=== PATIENT | male | born 1930 | race Hispanic/Latino ===

== ENCOUNTER 2016-08-26 14:02 | Inpatient (IN) | payer MEDICARE, BC ==
[2016-08-26 14:06] VITALS: BMI 26.6
--- NOTE | 2016-08-26 14:34 | ED PDOC ---
Arrival/HPI - General Chief Complaint: Shortness Of Breath Time Seen by Provider: 08/26/16 14:15 Historian: Patient, Family - History of Present Illness Narrative History of Present Illness (Text): 08/26/16 14:33 85 year old female with a past medical history that includes COPD, CAD s/p CABG , stents, hemolytic anemia presents to the emergency department with worsening shortness of breath and dyspnea on exertion for the past week. Family reports patient has baseline dementia and is unable to provide further history. Family reports the patient was seen by his PMD who referred him to the emergency department for further evaluation. PMD: Dr. Pavon Time/Duration: < week Symptom Onset: Gradual Symptom Course: Worsening Modifying Factors (Text): None Associated Symptoms (Text): None Past Medical History - Provider Review Nursing Documentation Reviewed: Yes - Infectious Disease Hx of Infectious Diseases: None - Tetanus Immunization Tetanus Immunization: Unknown - Cardiac Hx Hypertension: Yes - Pulmonary Hx Respiratory Disorders: Yes Hx Chronic Obstructive Pulmonary Disease (COPD): Yes - Neurological Hx Neurological Disorder: No - HEENT Hx HEENT Disorder: (WEARS RX GLASSES) Hx Deafness: Yes - Renal Hx Renal Disorder: No - Endocrine/Metabolic Hx Endocrine Disorders: No - Hematological/Oncological Hx Blood Transfusions: No Hx Blood Transfusion Reaction: No - Integumentary Hx Dermatological Disorder: Yes (GENERALIZED ROUND AGUSTIN COLORED LESIONS) Other/Comment: cells removed on body as per patient and - Musculoskeletal/Rheumatological Hx Musculoskeletal Disorders: Yes Hx Falls: Yes - Gastrointestinal Hx Gastrointestinal Disorders: Yes (GASTRITIS) Hx Diverticulitis: Yes Hx Gall Bladder Disease: Yes (CHOLECYSTECTOMY) Hx Gastroesophageal Reflux: Yes - Genitourinary/Gynecological Hx Genitourinary Disorders: Yes (URINARY FREQUENCY) Hx Prostate Problems: Yes (BPH) Hx Urinary Tract Infection: Yes - Psychiatric Hx Anxiety: (SMOKED CIGARETTES QUIT 10 YRS AGO PPD) Hx Depression: No Hx Emotional Abuse: No Hx Physical Abuse: No Hx Substance Use: No Other/Comment: DRINKS BEER REULARLY H/O - Surgical History Hx Cardiac Catheterization: Yes Hx Coronary Stent: Yes (X8) - Anesthesia Hx Anesthesia Reactions: No Hx Malignant Hyperthermia: No - Suicidal Assessment Feels Threatened In Home Enviroment: No Family/Social History - Physician Review Nursing Documentation Reviewed: Yes Family/Social History: Unknown Family HX Smoking Status: Former Smoker Hx Alcohol Use: Yes (BEER DAILY H/O) Hx Substance Use: No Hx Substance Use Treatment: No Allergies/Home Meds Allergies/Adverse Reactions: Allergies No Known Allergies Allergy (Verified 08/09/15 15:01) Home Medications: Home Meds Medication Instructions Recorded Confirmed Tamsulosin [Flomax] 0.4 mg PO DAILY 03/08/13 08/26/16 Clopidogrel [Plavix] 75 mg PO DAILY 05/02/14 08/26/16 Famotidine [Pepcid] 20 mg PO BID 02/22/15 08/26/16 Isosorbide Mononitrate [Imdur] 60 mg PO DAILY 07/12/15 08/26/16 Aspirin [Aspirin Chewable] 81 mg PO DAILY 08/07/15 08/26/16 Metoprolol Tartrate [Lopressor] 100 mg PO BID 08/07/15 08/26/16 Prednisone [Deltasone] 5 mg PO DAILY 08/07/15 08/26/16 ALPRAZolam [Xanax] 0.25 mg PO Q8H PRN 06/10/16 08/26/16 Clarithromycin [Biaxin Filmtab] 500 mg PO BID 08/26/16 08/26/16 Review of Systems - Review of Systems Systems not reviewed;Unavailable: Dementia Physical Exam - Physical Exam Narrative Physical Exam (Text): - Physical exam Patient appears age appropriate, speaking full sentences without difficulty - Systems Exam Head: Present: Atraumatic, Normocephalic Pupils: Present: PERRL Extraocular Muscles: Present: EOMI Conjunctiva: Present: Normal Mouth: Present: Moist Mucous Membranes Neck: Present: Normal Range of Motion. No: MIDLINE TENDERNESS, Paraspinal Tenderness Respiratory/Chest: Present: Clear to Auscultation, Good Air Exchange. No: Respiratory Distress, Accessory Muscle Use, Tachypneic Cardiovascular: Present: Regular Rate and Rhythm, Normal S1, S2, Peripheral Pulses Present. No: Murmurs Abdomen: Present: Normal Bowel Sounds, No: Tenderness, Peritoneal Signs, Rebound, Guarding, Distention Back: Present: Normal Inspection. No: Midline Tenderness, Paraspinal Tenderness Upper Extremity: Present: Normal Inspection. No: Cyanosis, Edema Lower Extremity: Present: Normal Inspection. No: Edema Neurological: Present: GCS=15, No new focal neurological deficits. Skin: Present: Warm, Dry, Normal Color. No: Rashes Lymphatic: Present: OX3, NI, NC Psychiatric: Present: Alert, Normal Concentration. Vital Signs Reviewed: Yes Vital Signs Temp Pulse Resp BP Pulse Ox 08/26/16 15:37 22 98 08/26/16 14:11 97.9 F 91 H 18 135/65 97 Temperature: Afebrile Blood Pressure: Normal Pulse: Regular Respiratory Rate: Normal Appearance: Positive for: Well-Appearing, Non-Toxic, Comfortable Pain Distress: None Mental Status: Positive for: other (Baseline as per family) Medical Decision Making ED Course and Treatment: Impression: 85 year old female with a past medical history that includes COPD, CAD s/p CABG, stents, hemolytic anemia presents to the emergency department with worsening shortness of breath and dyspnea on exertion for the past week. On physical exam, patient has no acute findings. Differential Diagnosis include but are not limited to: Pneumonia vs COPD exacerbation Plan: -- Chest X-ray, EKG -- Labs -- Reassess and disposition Prior Visits: Notes and results from previous visits were reviewed. Patient last seen in the ED on 08/10/15 with altered mental status and admitted for observation. Progress Notes: EKG shows NSR at 90 BPM with t-wave inversions in precordial leads, no ST segment elevations, interpreted by me. Chest X-ray Inspector Air Carrier: Dr. Richter Impression: Bilateral calcified pleural plaque. No definite infiltrate. Chest CT Inspector Air Carrier: Dr. Malik Miner IMPRESSION: Extensive pleural plaques. No acute findings. No evidence of pneumonia 08/26/16 16:[address] Brooks, accepted admission to his service. Asked for steroids and consult with Dr. Jaime. pt has leukocytosis with no source. ct abd/pelvis and ua ordered - Lab Interpretations Lab Results: 08/26/16 14:30 08/26/16 14:30 Lab Results 08/26/16 14:45: PT 12.7 H, INR 1.18 H, APTT 31.6 H, Blood Type O POSITIVE, Antibody Screen Positive, Antibody Identification Pending, BBK History Checked Patient has bt 08/26/16 14:30: WBC 16.2 H D, RBC 4.09, Hgb 13.5 L, Hct 38.9 L, MCV 95.1, MCH 33.0, MCHC 34.7, RDW 16.6 H, Plt Count 419, MPV 10.4, Gran % 75.4 H, Lymph % ( Auto) 11.3 L, Fountain % (Auto) 12.7 H, Eos % (Auto) 0.1 L, Baso % (Auto) 0.5, Gran # 12.24 H, Lymph # 1.8, Fountain # 2.1 H, Eos # 0.0, Baso # 0.08, Sodium 138, Potassium 4.5, Chloride 105, Carbon Dioxide 22, Anion Gap 16, BUN 20, Creatinine 1.1, Est GFR ( Amer) > 60, Est GFR (Non-Af Amer) > 60, Random Glucose 132 H, Calcium 8.8, Total Bilirubin 1.2, AST 40, ALT 29, Alkaline Phosphatase 178 H, Lactate Dehydrogenase 420, Total Creatine Kinase 24 L, Troponin I 0.02 D, NT-Pro-B Natriuret Pep 1760 H, Total Protein 7.7, Albumin 3.4, Globulin 4.3, Albumin/Globulin Ratio 0.8 L - RAD Interpretation Radiology Orders: 08/26/16 14:19 CHEST PORTABLE [RAD] Stat 08/26/16 15:22 CHEST W/O CONTRAST [CT] Stat 08/26/16 16:31 ABD & PELVIS IV CONTRAST ONLY [CT] Stat Trial Paralegal: Radiologist - EKG Interpretation Interpreted by ED Physician: Yes Type: 12 lead EKG - Medication Orders Current Medication Orders: Azithromycin (Zithromax 500mg In Ns) 250 mls @ 167 mls/hr IVPB STAT STA PRN Reason: Protocol Stop: 08/26/16 16:47 Discontinued Medications Ceftriaxone Sodium (Rocephin 1 Gram Ivpb) 100 mls @ 200 mls/hr IV STAT STA PRN Reason: Protocol Stop: 08/26/16 15:47 Last Admin: 08/26/16 16:02 Dose: 200 MLS/HR eMAR Start Stop Document 08/26/16 16:02 JOL (Rec: 08/26/16 16:04 JOL [id number]) Intravenous Solution Start Date 08/26/16 Start Time 16:04 End Date 08/26/16 End time 16:34 Total Infusion Time 30 Methylprednisolone (Solu-Medrol) 125 mg IVP STAT STA Stop: 08/26/16 16:37 - Scribe Statement The provider has reviewed the documentation as recorded by the Stephenie Lopez Provider Scribe Attestation: All medical record entries made by the Stephenie were at my direction and personally dictated by me. I have reviewed the chart and agree that the record accurately reflects my personal performance of the history, physical exam, medical decision making, and the department course for this patient. I have also personally directed, reviewed, and agree with the discharge instructions and disposition. Disposition/Present on Arrival - Present on Arrival Any Indicators Present on Arrival: No History of DVT/PE: No History of Uncontrolled Diabetes: No Urinary Catheter: No History of Decub. Ulcer: No History Surgical Site Infection Following: None - Disposition Have Diagnosis and Disposition been Completed?: Yes Diagnosis: Leukocytosis Disposition: HOSPITALIZED Disposition Time: 16:47 Patient Plan: Admission Patient Problems: Current Active Problems Problem Status Diagnosed Abdominal pain Acute Altered mental status Acute Chest pain, cardiac Acute Condition: FAIR
[2016-08-26 14:59] LABS: BASO # 0.08 K/mm3 (0.0-2.0); BASO % 0.5 % (0.0-3.0); EOS % 0.1 % (1.5-5.0); GRAN # 12.24 (1.4-6.5); GRAN % 75.4 % (50.0-68.0); HEMATOCRIT 38.9 % (42.0-52.0); LYMPH # 1.8 (1.2-3.4); LYMPH % 11.3 % (22.0-35.0); MEAN CELL VOLUME 95.1 fL (80.0-105.0); MEAN CORPUSCULAR HGB CONC 34.7 g/dl (31.0-37.0); MEAN PLATELET VOLUME 10.4 fl (7.0-11.0); MONO # 2.1 (0.1-0.6); MONO % 12.7 % (1.0-6.0); PLATELET COUNT 419 10^3/uL (120.0-450.0); RED CELL DISTRIBUTION WIDTH 16.6 % (11.5-14.5); WHITE BLOOD COUNT 16.2 10^3/ul (4.5-11.0)
[2016-08-26 15:02] LABS: ALB/GLOB RATIO 0.8 (1.1-1.8); ALKALINE PHOSPHATASE 178 U/L (38-133); ALT/SGPT 29 U/L (7-56); AST/SGOT 40 U/L (15-59); BILIRUBIN,TOTAL 1.2 mg/dL (0.2-1.3); BLOOD UREA NITROGEN 20 mg/dL (7-21); CALCIUM 8.8 mg/dL (8.4-10.5); CARBON DIOXIDE 22 mmol/L (21-33); CHLORIDE 105 mmol/L (98-107); GFR AFRICAN-AMERICAN > 60; GLUCOSE,RANDOM 132 mg/dL (70-110); POTASSIUM 4.5 mmol/L (3.6-5.0); SODIUM 138 mmol/L (132-148); TOTAL PROTEIN 7.7 g/dL (5.8-8.3)
--- NOTE | 2016-08-26 15:05 | RAD ---
HISTORY: cough COMPARISON: 08/09/2015 FINDINGS: LUNGS: No definite infiltrate. Bilateral opacities due to calcified pleural plaque unchanged over multiple prior examinations and demonstrated on recent chest CT examination. PLEURA: No pleural effusion. Bilateral pleural plaque with calcification, grossly unchanged. CARDIOVASCULAR: Sternotomy wires. Status post CABG. OSSEOUS STRUCTURES: No significant abnormalities. VISUALIZED UPPER ABDOMEN: Normal. OTHER FINDINGS: None. IMPRESSION: Bilateral calcified pleural plaque. No definite infiltrate.
[2016-08-26 15:13] LABS: INR 1.18 (0.93-1.08); PARTIAL THROMBOPLASTIN TIME 31.6 Seconds (23.7-30.8)
[2016-08-26 15:14] LABS: ADD MANUAL DIFF? NO; TROPONIN I 0.02 ng/mL
[2016-08-26] MEDS ORDERED: cefTRIAXone 1 gm 100 ML IV STA (15:18)
[2016-08-26] MEDS ORDERED: Azithromycin 500MG/NS 250ml 250 ML IVPB STA (15:18)
--- NOTE | 2016-08-26 16:11 | CT ---
PROCEDURE: CT Chest without contrast HISTORY: PNA COMPARISON: 08/11/2015 TECHNIQUE: Contiguous axial images were obtained through the chest without intravenous contrast enhancement. Sagittal and coronal reconstructions were performed. Radiation dose (DLP): 675 mGy-cm. FINDINGS: LUNGS: Clear lungs. Visualized airway clear. MEDIASTINUM: Unremarkable thoracic aorta. No aneurysm. Mild cardiomegaly. Previous cardiac surgery Main pulmonary artery unremarkable. No vascular congestion. No lymphadenopathy. PLEURA: Extensive bilateral pleural plaques are seen. BONES: No fracture. No destructive lesion. UPPER ABDOMEN: Grossly unremarkable. OTHER FINDINGS: None. IMPRESSION: Extensive pleural plaques. No acute findings. No evidence of pneumonia
[2016-08-26] MEDS ORDERED: Iohexol 350 MG/100 ML VIAL ONE (17:54)
[2016-08-26] MEDS ORDERED: MethylPREDNISolone 40 mg Vial IVP SCH (19:15)
--- NOTE | 2016-08-26 21:21 | CT ---
EXAM: CT Abdomen and Pelvis With Intravenous Contrast. CLINICAL HISTORY: 85 years old, male; Pain; Abdominal pain; Generalized; Prior surgery; Surgery date: 6+ months; Surgery type: Cholecystectomy; Additional info: Abd pain TECHNIQUE: Axial computed tomography images of the abdomen and pelvis with intravenous contrast. This CT exam was performed using one or more of the following dose reduction techniques: automated exposure control, adjustment of the mA and/or kV according to patient size, and/or use of iterative reconstruction technique. Coronal and sagittal reformatted images were created and reviewed. CONTRAST: 100 mL of OMNIPAQUE 350 administered intravenously. COMPARISON: CT - ABD PELVIS PO CONTRAST ONLY 11/10/2011 7:11:28 PM FINDINGS: Limitations: Motion artifact - mild. Lower thorax: Multiple calcified pleural plaques. Mild atelectasis/scarring. Small hiatal hernia. ABDOMEN: Liver: Unremarkable. No mass. Gallbladder and bile ducts: Cholecystectomy. No ductal dilation. Pancreas: No ductal dilation. No mass. Spleen: No splenomegaly. Adrenals: No mass. Kidneys and ureters: [id number] stranding about kidneys, nonspecific. RIGHT renal cyst. Few too small to characterize lesions within kidneys. No hydronephrosis. Stomach and bowel: Few scattered diverticula within colon. No associated inflammatory stranding. Appendix: Normal caliber. No definite inflammation. PELVIS: Bladder: Unremarkable. Reproductive: Unremarkable as visualized. ABDOMEN and PELVIS: Intraperitoneal space: No significant fluid collection. No free air. Bones/joints: Median sternotomy. Degenerative changes of spine. No acute fracture. Soft tissues: Unremarkable. Vasculature: Moderate atherosclerotic disease of visualized arteries. Accessory retroaortic LEFT renal vein. No aortic aneurysm. Lymph nodes: No pathologically enlarged lymph nodes. IMPRESSION: 1. Diverticulosis without CT evidence of diverticulitis. 2. Incidental/non-acute findings are described above.
[2016-08-26 21:31] LABS: URINE BILIRUBIN NEGATIVE (NEGATIVE); URINE BLOOD TRACE-INTACT (NEGATIVE); URINE GLUCOSE (UA) NEGATIVE (NEGATIVE); URINE KETONE NEGATIVE (NEGATIVE); URINE LEUKOCYTE ESTERASE NEGATIVE Leu/uL (NEGATIVE); URINE PROTEIN TRACE mg/dL (<30 mg/dL)
[2016-08-26 21:36] LABS: URINE APPEARANCE CLEAR (CLEAR); URINE COLOR YELLOW (YELLOW)
[2016-08-26 22:01] LABS: URINE BACTERIA FEW (NEG); URINE EPITHELIAL CELLS 0 - 2 /hpf (0-5); URINE WBC 0 - 2 /hpf (0-6)
--- NOTE | 2016-08-27 06:35 | HP ---
HISTORY OF PRESENT ILLNESS: The patient is an 85-year-old white male. The patient presents in the Emergency Room, brought in by his 2 daughters. He has altered mental state, is confused, he has been out in the cold, but he also has history of cough, shortness of breath. The patient complains of abd ominal pain, pain in his lower abdomen and lower back. The patient denies any fever. The patient de nies any chills. PAST MEDICAL HISTORY: Significant. He has history of exposure to asbestos. He does have evidence o f that in his lungs. The patient also has chronic lung disease. Past history of pneumonia. The victorina wilson has a past medical history of bronchitis, chronic obstructive lung disease. The patient has po sitive coronary artery disease and had multiple angioplasties. The patient has history of congestive heart failure, history of constipation, diverticulitis. ALLERGIES: The patient is not allergic to any medication. He is a full code. PHYSICAL EXAMINATION: GENERAL: He is lying in bed, comfortable. He is on oxygen 2 liters. VITAL SIGNS: His pulse is 89, blood pressure 146/80. His O2 sat is 95% on 2 liters of oxygen nasal cannula. The patient's temperature is 97.9. HEAD: Normocephalic. He does have some scars from previous surgery for skin cancer. The patient al so has multiple keratotic patches on his face and his arms. NECK: The thyroid is clinically not enlarged. No lymphadenopathy. JVP is flat, carotid pulses are present. HEART: Normal sinus rhythm. S1, S2 present. No murmurs, clinically no rubs. LUNGS: Trachea central. Breath sounds vesicular. The patient has occasional rhonchi and crepitatio ns bilaterally. The patient has no localizing signs. ABDOMEN: Soft. Liver, spleen not palpable and no localizing signs, no clear tenderness. CENTRAL NERVOUS SYSTEM: The patient is conscious, confused and also has difficulty in hearing. Cran ial nerves: Naturally, his 8th nerve is impaired and all the other cranial nerves are clinically okay . LABORATORY DATA: The white count is 16,200. His hemoglobin 13.5. His platelet count is 419,000. T he patient has had history of thrombocytopenia, idiopathic, and has been on steroids to control that. The chemistry shows glucose of 132. The patient's alkaline phosphatase is 178 and his BNP is 1760. This is chronic. The patient has past history of congestive heart failure. The patient's chest x-ra y shows a ground glass appearance. The patient's EKG shows normal sinus rhythm and ST-T wave changes consistent with coronary artery disease. MEDICATIONS: The patient's medication list consists of Plavix. The patient is on metoprolol 100 mg b.i.d., Flomax 0.4 mg daily, Imdur 60 mg daily, aspirin 81 mg daily. The patient is given Plavix 75 m g daily. He is on Zithromax IV. The patient is on Solu-Medrol IV. He will be on respiratory treatm ent with Caroline and will have cardiac consultation with Dr. Almazan and pulmonary consultation with Dr. Leyva and Dr. Shah. PLAN: The patient's clinical condition is acute. We will continue with the current management as pr escribed. We will follow up. DIAGNOSIS: Acute exacerbation of chronic obstructive lung disease with respiratory infection, leukoc ytosis associated with systemic inflammatory response syndrome. The patient has coronary artery dise ase, chronic obstructive lung disease with asbestosis, abdominal pain, cause unknown. The patient is pending CAT scan. He is in the Emergency Room. We will follow up on that. CONDITION: Clinically unstable but he is not in any critical danger at this time. David Pavon MD cc: [phone] TT: 08/27/2016 06:34:23 al
[2016-08-27] MEDS ORDERED: Albuterol-Ipratrop 3 mg / 0.5 (3 ml) UD IH PRN (06:53)
[2016-08-27] MEDS: Albuterol-Ipratrop 3 mg / 0.5 (3 ml) UD IH SCH ×3 (07:10→19:55)
[2016-08-27 07:25] LABS: HEMATOCRIT 38.7 % (42.0-52.0); MEAN CELL VOLUME 94.4 fL (80.0-105.0); MEAN CORPUSCULAR HEMOGLOBIN 32.4 pg (25.0-35.0); MEAN CORPUSCULAR HGB CONC 34.4 g/dl (31.0-37.0); MEAN PLATELET VOLUME 10.1 fl (7.0-11.0); PLATELET COUNT 448 10^3/uL (120.0-450.0); RED CELL DISTRIBUTION WIDTH 16.6 % (11.5-14.5); WHITE BLOOD COUNT 16.2 10^3/ul (4.5-11.0)
[2016-08-27 07:29] LABS: ADD MANUAL DIFF? YES
[2016-08-27 07:33] LABS: ALB/GLOB RATIO 0.8 (1.1-1.8); ALKALINE PHOSPHATASE 167 U/L (38-133); ALT/SGPT 26 U/L (7-56); AST/SGOT 39 U/L (15-59); BILIRUBIN,TOTAL 0.7 mg/dL (0.2-1.3); BLOOD UREA NITROGEN 22 mg/dL (7-21); CALCIUM 9.1 mg/dL (8.4-10.5); CARBON DIOXIDE 23 mmol/L (21-33); CHLORIDE 105 mmol/L (95-110); GFR AFRICAN-AMERICAN > 60; GLUCOSE,RANDOM 169 mg/dL (70-110); POTASSIUM 4.1 mmol/L (3.6-5.0); SODIUM 140 mmol/L (132-148); TOTAL PROTEIN 7.7 g/dL (5.8-8.3)
[2016-08-27 09:38] LABS: BAND 3 % (0-2); NEUTROPHIL 85 % (50.0-70.0)
[2016-08-27 09:39] LABS: ANISOCYTOSIS SLIGHT; LARGE PLATELETS PRESENT; PLATELET ESTIMATE HIGH (NORMAL)
[2016-08-27 09:40] LABS: OVALOCYTES SLIGHT
[2016-08-27] MEDS: Azithromycin 500MG/NS 250ml 250 ML IVPB SCH (10:16)
--- NOTE | 2016-08-27 10:20 | PN ---
DATE: 08/27/2016 The patient is in room 276, bed 2. The patient was admitted yesterday with multiple complaints. The family, the 2 daughters, brought the patient to the Emergency Room because he was complaining of wea kness, shortness of breath, cough. The patient had abdominal pain and altered mental state. PHYSICAL EXAMINATION: GENERAL: Seen this morning. He is lying down, comfortable. 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 Luke. VITAL SIGNS: This morning, his pulse is 64, blood pressure 135/60, patient's respiration is 20, O2 s at is 97% on room air. HEAD: Normocephalic. NECK: The thyroid is not enlarged. JVP is flat. No lymphadenopathy. LUNGS: Trachea central. Breath sounds vesicular. Adventitious sounds like occasional rhonchi and c repitations are heard bilaterally. HEART: Normal sinus rhythm, sinus bradycardia. ABDOMEN: Soft. Liver, spleen not palpable. CENTRAL NERVOUS SYSTEM: The patient is confused. The patient has symptoms of dementia. MEDICATIONS: Consists of aspirin 81 mg daily. The patient is on DuoNeb respiratory treatment. The patient is on Flomax 0.4 mg daily, isosorbide mononitrate 60 mg daily, metoprolol 100 mg b.i.d., Pepc id 20 mg b.i.d., Plavix 75 mg daily for coronary artery disease. The patient is on Solu-Medrol 30 mg q. 12 hours today, Zithromax 250 mg IV for infection in the lung. The patient's condition is clinically stable at this time, but he will continue with antibiotic. His white count was elevated. Will repeat the white count. Will follow up. David Pavon MD cc: [id number] TT: 08/27/2016 10:19:49 Confirmation # [id number] Dictation # [id number] mn
[2016-08-27] MEDS: MethylPREDNISolone 40 mg Vial IVP SCH ×2 (10:26→21:39)
--- NOTE | 2016-08-27 11:09 | CON ---
DATE: 08/27/2016 REASON FOR CONSULTATION: Chronic obstructive pulmonary disease. REFERRING PHYSICIAN: Dr. Pavon. History is obtained via extensive discussion with the night nurse. I have also reviewed the chart at length and discussed the case with the patient at length. HISTORY OF PRESENT ILLNESS: The patient is an 85-year-old male with past medical history significant for chronic obstructive pulmonary disease, asbestos lung disease, extensive coronary artery disease, status post open heart surgery , status post multiple cardiac stents, who presents to [facility] with increasing shortness of breath at rest, dyspnea on exertion, and cough for the past week. There is no history of significant sputum production. There is no history of chest pain, coughing up of blood or chest pain - made worse with deep respirations. There is no history of temperatures, chills or infectious exposure. There is no history of night sweats, weight loss or appetite change prior to the above events. No history of leg or calf pains. No history of syncope or diaphoresis. No history of recent travel or trauma. REVIEW OF SYSTEMS: The patient does have a history of abdominal pain "on and off." No nausea, vomiting or diarrhea. No acute urinary symptoms. No new musculoskeletal complaints. Rest of the review of systems is negative. ALLERGIES: No known allergies. SOCIAL HISTORY: Positive for tobacco, negative for alcohol. FAMILY HISTORY: No inheritable diseases. HOME MEDICATIONS: Include Biaxin, Flomax, Deltasone, Lopressor, Imdur, Pepcid, Plavix, Xanax, aspirin. PHYSICAL EXAMINATION: GENERAL: The patient is not short of breath at rest. He is not using accessory muscles for breathing. VITAL SIGNS: Temperature is 97.5, pulse 64, respirations 18, blood pressure 135 /55. Oxygen saturation on nasal cannula is 97-98%. HEENT: Normocephalic, atraumatic. NECK: No JVD. CARDIOVASCULAR: Systolic ejection murmur at the lower left sternal border. No S3 gallop. LUNGS: Decreased breath sounds at the bases. Minimal bilateral rhonchi. No wheezing. EXTREMITIES: Mild edema. No cyanosis, no clubbing. Calves are nontender to palpation. GASTROINTESTINAL: Abdomen is soft, nontender, nondistended. Bowel sounds are positive. SKIN: No acute rash. NEUROLOGIC: Limited at the present time. PERTINENT LABORATORY DATA: CAT scan of the chest was done and reviewed. There are extensive pleural plaques seen. There are no acute findings. There is no evidence of mass lesion or acute pneumonia. CBC: White count 16.2, hemoglobin 13.5, hematocrit 38.9, platelets of 419. INR 1.18. Complete metabolic profile : Glucose 132, alkaline phosphatase 178, B-type natriuretic peptide 1760. Rest of the metabolic profile is within normal limits. IMPRESSION: 1. Acute bronchitis. 2. Chronic obstructive pulmonary disease. 3. Asbestos lung disease. 4. Coronary artery disease. PLAN: Again, I did discuss the case with the night nurse at length. I have also reviewed the chart at length and discussed the case with the patient at length. The patient presents to [facility] with a 1-week history of worsening pulmonary symptoms. I did review the CAT scan of the chest. There are no acute findings noted. On physical exam, the patient is in mild bronchospasm. However, there is no significant alveolar arterial gradient. Oxygen saturation on nasal cannula is 97-98%. I will start the patient on scheduled DuoNeb treatments and decrease the intravenous steroids this morning. The patient has also been placed on antibiotic therapy. There are no temperatures noted. Repeat a.m. labs are pending. Cardiology evaluation with Dr. Almazan has also been ordered. The patient does feel better this morning - compared to the past few days. He is clinically improved. Additional pulmonary intervention will be based on the clinical status of the patient. I will discuss the above with Dr. Pavon. Thank you very much for this pulmonary consultation. Lopez Shah MD cc: [id number] TT: 08/27/2016 11:08:58 Confirmation # [id number] Dictation # [id number] brina CARPENTER
--- NOTE | 2016-08-27 12:08 | CARD ---
APPROVED REPORT EKG Measurement Heart [id number] <Conclusion> Normal sinus rhythm Possible Left atrial enlargement Incomplete right bundle branch block T wave abnormality, consider anterior ischemia Abnormal ECG
--- NOTE | 2016-08-27 14:47 | CON ---
DATE: 08/27/2016 REASON FOR CONSULTATION: Cardiac evaluation, admitted with possible sepsis, leukocytosis, altered me ntal status, history of coronary artery disease. BRIEF CLINICAL HISTORY: This is an 85-year-old male with a past medical history and extensive of his tory of coronary artery disease that goes back to 25 years ago. The patient had coronary artery bypa ss in 1989 and then multiple PTCAs. The last PTCA was on 11/25/2014. Presented with chest pain and abnormal stress test. Recently admitted, found to be more confused, feeling cold and shortness of br eath; found to have elevated WBCs. Admitted with possible sepsis. 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 At one point, we have to stop aspirin and Plavix because of severe autoimmune hemolytic anemi a. PAST MEDICAL HISTORY: Significant for coronary artery disease, history of CABG 25 years ago, history of multiple stents in the past. Last stent was done is a saphenous vein graft to the RCA on 014. Last cardiac catheterization was done on 03/15/2014 and at that time revealed triple vessel dis ease, distal left main 90% stenosis, occluded LAD, occluded circumflex, occluded RCA; patent graft SV G to RCA, patent saphenous graft to the diagonal 1 patent, HARRIS to LAD occluded, saphenous venous gra ft to the circumflex occluded, ejection fraction 55%, end-diastolic pressure (EDP) was in the range o f 10-12. Last echo on 02/20/2015 shows ejection fraction 45-50%, mild aortic stenosis, ____ mitral r egurgitation, ____ tricuspid regurgitation and right ventricular systolic pressure of 48. Therefore, the last echo dated 02/20/2015: Ejection fraction 45%, mild aortic stenosis, ____ mitral regurgitat ion, ____ tricuspid regurg, right ventricular systolic pressure of 48. SOCIAL HISTORY: Active tobacco abuse, now has cut down to 1-2 cigarettes per day. No history of alc ohol abuse. ALLERGIES: No known drug allergy. CURRENT MEDICATIONS: The patient is taking clarithromycin, Biaxin, Flomax, prednisone, metoprolol, i sosorbide ____nitrate, Pepcid, Plavix, aspirin and Xanax. REVIEW OF SYSTEMS: As per HPI. PHYSICAL EXAMINATION: VITAL SIGNS: Temperature afebrile, heart rate 70, blood pressure 122/72. HEENT: PERRLA. Extraocular muscles intact. NECK: Supple. No carotid bruits. No thyromegaly. CHEST: Clear to auscultation. HEART: S1, S2 regular. ABDOMEN: Soft. EXTREMITIES: Clubbing and cyanosis negative. BLOOD WORKUP: WBC 16.2, hemoglobin 13.3, hematocrit 38.7, platelet count 448. Chemistry shows sodiu m 140, potassium 4.1, chloride 105, carbon dioxide 23, anion gap of 16, BUN 22, creatinine 0.7. Tota l protein 7.7, albumin 3.4, albumin/globulin ratio 0.8. IMPRESSION: Sepsis, leukocytosis. Chest x-ray is no definite infiltrate. CAT scan of the ____ ches t: Extensive pleural plaque; no acute finding noted. The patient also had CT abdomen and pelvis don e: Diverticular colonic disease without CT evidence of diverticulitis. Sepsis, source not sure; his tory of coronary artery disease, history of coronary artery bypass graft, history of multiple percuta neous transluminal coronary angioplasties. Last percutaneous transluminal coronary angioplasty of sa phenous venous graft. Last catheterization revealed triple vessel disease, occluded left anterior de scending, occluded circumflex, occluded right coronary artery, occluded left internal mammary artery to left anterior descending, a patent saphenous graft to right coronary artery, patent saphenous alaina t to diagonal 1. Medical treatment recommended. RECOMMENDATION: Will continue aggressive medical treatment. No evidence of acute myocardial infarct ion or acute coronary syndrome. Will get echo to assess LV function. Will follow with you. Thank you, Dr. Lares, for providing the opportunity in taking care of this patient. Possible discha rge home in 1-2 days, once the leukocytosis improves. Discontinue telemetry in 1-2 days if remains s table. Will follow with you. Thank you, Dr. Lares, for providing the opportunity in taking care of this patient. Will get lipid profile, TSH, hemoglobin A1c as well as an echo. Francisca Almazan MD cc: [id number] TT: 08/27/2016 14:32:01 Confirmation # [id number] Dictation # [id number] wy 08/27/2016 13:46:26
[2016-08-27] MEDS: Silver Sulfadiazine 1% Cream (20 gm) TOP SCH (19:24)
--- NOTE | 2016-08-27 19:26 | CP.PCM.CON ---
History of Present Illness - History of Present Illness History of Present Illness: Surgery consult for Dr. Luke 85 M with PMH of Actinic keratosis, skin lesions, Dementia, COPD and recent PSH of skin excision of his R dorsum of the hand presents to [facility] with AMS and SOB. Pt was admitted for possible pneumonia v COPD. This is a known pt by Dr. Luke. Pt had skin excision of his R dorsum of the hand on 08/06/16. Surgery was consulted to evaluate the surgical wound. Pt still has the stitches. Pt is a poor historian and does not remember when and why he had the procedure. Denies F/C/N/V/D/itchyness/numbness/trauma/bleeding/pain/decreased ROM. Path result shows actinic keratosis. Area is dry and has dry blood. Pt is on Plavix PO 75 daily. WBC was 16k. Pt also had scalp lesions excision on 2016. The area is well healed. Review of Systems - Review of Systems Review of Systems: See HPI - Constitutional Constitutional: absent: Chills Past Patient History - Infectious Disease Hx of Infectious Diseases: None - Tetanus Immunizations Tetanus Immunization: Unknown - Past Medical History & Family History Past Medical History?: Yes - Past Social History Smoking Status: Former Smoker - CARDIAC Hx Hypertension: Yes - PULMONARY Hx Respiratory Disorders: Yes Hx Chronic Obstructive Pulmonary Disease (COPD): Yes - NEUROLOGICAL Hx Neurological Disorder: Yes Hx Dementia: Yes - HEENT Hx HEENT Problems: (WEARS RX GLASSES) Hx Deafness: Yes - RENAL Hx Chronic Kidney Disease: No - ENDOCRINE/METABOLIC Hx Endocrine Disorders: No - HEMATOLOGICAL/ONCOLOGICAL Hx Blood Disorders: Yes (ASBESTOSIS) Hx Anemia: Yes - INTEGUMENTARY Hx Dermatological Problems: Yes - MUSCULOSKELETAL/RHEUMATOLOGICAL Hx Musculoskeletal Disorders: Yes Hx Falls: Yes - GASTROINTESTINAL Hx Gastrointestinal Disorders: Yes (GASTRITIS) Hx Diverticulitis: Yes Hx Gall Bladder Disease: Yes Hx Gastroesophageal Reflux: Yes - GENITOURINARY/GYNECOLOGICAL Hx Genitourinary Disorders: Yes (URINARY FREQUENCY) Hx Prostate Problems: Yes (BPH) Hx Urinary Tract Infection: Yes - PSYCHIATRIC Hx Anxiety: (SMOKED CIGARETTES QUIT 10 YRS AGO) Hx Depression: No Hx Emotional Abuse: No Hx Physical Abuse: No Hx Substance Use: No - SURGICAL HISTORY Hx Surgeries: Yes Hx Cardiac Catheterization: Yes Hx Cholecystectomy: Yes Hx Coronary Stent: Yes (X8) Hx Open Heart Surgery: Yes - ANESTHESIA Hx Anesthesia Reactions: No Hx Malignant Hyperthermia: No Meds Allergies/Adverse Reactions: Allergies Allergy/AdvReac Type Severity Reaction Status Date / Time No Known Allergies Allergy Verified 08/09/15 15:01 - Medications Medications: Current Medications Albuterol/Ipratropium (Duoneb 3 Mg/0.5 Mg (3 Ml) Ud) 3 ml IH Q2H PRN PRN Reason: Shortness of Breath Albuterol/Ipratropium (Duoneb 3 Mg/0.5 Mg (3 Ml) Ud) 3 ml IH [id number] COUNT INCLUDES THE [facility] Last Admin: 08/27/16 13:38 Dose: 3 ml Aspirin (Aspirin Chewable) 81 mg PO DAILY COUNT INCLUDES THE [facility] Last Admin: 08/27/16 10:22 Dose: 81 mg Clopidogrel Bisulfate (Plavix) 75 mg PO DAILY COUNT INCLUDES [facility] Last Admin: 08/27/16 10:22 Dose: 75 mg Famotidine (Pepcid) 20 mg PO BID COUNT [facility]CLUDES [facility] Last Admin: 08/27/16 17:28 Dose: 20 mg Azithromycin (Zithromax 500mg In Ns) 250 mls @ 167 mls/hr IVPB DAILY COUNT INCLUDES THE [facility] PRN Reason: Protocol Last Admin: 08/27/16 10:16 Dose: 167 mls/hr Isosorbide Mononitrate (Imdur) 60 mg PO DAILY COUNT [facility]CLUDES [facility] Last Admin: 08/27/16 10:25 Dose: 60 mg Methylprednisolone (Solu-Medrol) 30 mg IVP Q12 COUNT INCLUDES THE [facility] Last Admin: 08/27/16 10:26 Dose: 30 mg Metoprolol Tartrate (Lopressor) 100 mg PO BID COUNT INCLUDES THE [facility] Last Admin: 08/27/16 17:30 Dose: 100 mg Silver Sulfadiazine (Silvadene 1% 20 Gm) 0 ea TOP BID COUNT INCLUDES THE [facility] Tamsulosin HCl (Flomax) 0.4 mg PO DAILY COUNT INCLUDES THE [facility] Last Admin: 08/27/16 10:25 Dose: 0.4 mg Physical Exam - Constitutional Appears: No Acute Distress - Head Exam Head Exam: ATRAUMATIC, NORMAL INSPECTION, NORMOCEPHALIC - Eye Exam Eye Exam: EOMI, Normal appearance, PERRL Pupil Exam: NORMAL ACCOMODATION, PERRL - ENT Exam ENT Exam: Mucous Membranes Moist, Normal Exam - Neck Exam Neck exam: Positive for: Normal Inspection - Respiratory Exam Respiratory Exam: Clear to Auscultation Bilateral, NORMAL BREATHING PATTERN. absent: Respiratory Distress - Cardiovascular Exam Cardiovascular Exam: REGULAR RHYTHM, +S1, +S2 - GI/Abdominal Exam GI & Abdominal Exam: Soft. absent: Tenderness - Extremities Exam Extremities exam: Positive for: full ROM, normal capillary refill, pedal pulses present. Negative for: joint swelling, pedal edema, tenderness - Back Exam Back exam: NORMAL INSPECTION - Neurological Exam Neurological exam: Alert, CN II-XII Intact, Normal Gait, Oriented x3, Reflexes Normal - Psychiatric Exam Psychiatric exam: Normal Affect, Normal Mood - Skin Skin Exam: Dry, Intact, Warm Additional comments: discoloration on extremities. R dorsum of the hand has nylon stitiches intact. Wound 4cm. Dry blood. NT. Results - Vital Signs Recent Vital Signs: Last Vital Signs Temp 97.2 F L 08/27/16 18:00 Pulse 87 08/27/16 18:00 Resp 20 08/27/16 18:00 BP 125/65 08/27/16 18:00 Pulse Ox 97 08/27/16 06:00 - Labs Result Diagrams: 08/27/16 06:50 08/27/16 06:50 Labs: Laboratory Results - last 24 hr 08/26/16 08/27/16 21:19 06:50 WBC 16.2 H RBC 4.10 Hgb 13.3 L Hct 38.7 L MCV 94.4 MCH 32.4 MCHC 34.4 RDW 16.6 H Plt Count 448 MPV 10.1 Neutrophils % (Manual) 85 H Band Neutrophils % 3 H Lymphocytes % (Manual) 10 L Monocytes % (Manual) 2 Platelet Evaluation High Large Platelets Present Anisocytosis (manual) Slight Ovalocytes Slight Sodium 140 Potassium 4.1 Chloride 105 Carbon Dioxide 23 Anion Gap 16 BUN 22 H Creatinine 0.9 Est GFR ( Amer) > 60 Est GFR (Non-Af Amer) > 60 Random Glucose 169 H Calcium 9.1 Total Bilirubin 0.7 AST 39 ALT 26 Alkaline Phosphatase 167 H Total Protein 7.7 Albumin 3.4 Globulin 4.4 Albumin/Globulin Ratio 0.8 L Urine Color Yellow Urine Appearance Clear Urine pH 6.0 Ur Specific [place] 1.025 Urine Protein Trace H Urine Glucose (UA) Negative Urine Ketones Negative Urine Blood Trace-intact H Urine Nitrate Negative Urine Bilirubin Negative Urine Urobilinogen 1.0 H Ur Leukocyte Esterase Negative Urine RBC 1 - 3 Urine WBC 0 - 2 Ur Epithelial Cells 0 - 2 Urine Bacteria Few Assessment & Plan - Assessment and Plan (Free Text) Assessment: s/p excision of skin lesion on R dorsum of the hand Path: Actinic Keratosis -Silvadene topical BID -Dressing change PRN -Will remove the stitches when the area is healed. -Dr. Luke will see in AM -Continue Medical management DW Dr. luke
--- NOTE | 2016-08-27 20:23 | CARD ---
APPROVED REPORT EXAM: Two-dimensional and M-mode echocardiogram with Doppler and color Doppler. INDICATION Dyspnea Cardiac Disease: CAD LVFX 2D DIMENSIONS Left Atrium (2D)3.6 (1.6-4.0cm)IVSd1.4 (0.7-1.1cm) LVDd3.6 (3.9-5.9cm)PWd1.4 (0.7-1.1cm) LVDs2.6 (2.5-4.0cm)FS (%) 26.4 % LVEF (%)52.6 (>50%) M-Mode DIMENSIONS Aortic Root3.20 (2.2-3.7cm)Aortic Cusp Exc.1.10 (1.5-2.0cm) Aortic Valve AoV Peak Jmklpbkd933.0cm/sAoV VTI42.6cmAO Peak GR.17mmHg LVOT Peak Xlqeorvi806.0cm/sLVOT VTI24.20cmAO Mean GR.8mmHg Mitral Valve MV E Kdmhwuof24.4cm/sMV A Zhqtedbw178.0cm/sE/A ratio0.5 TDI Lateral E' Peak V8.68cm/sMedial E' Peak V4.39cm/sE/Lateral E'6.6 E/Medial E'13.1 Pulmonary Valve PV Peak Kmszsusl420.0cm/sPV Peak Grad.5mmHg Tricuspid Valve TR Peak Nihzwssy635vq/sRAP UEWHWXUB57nqBnCW Peak Gr.10mmHg [id number] LEFT VENTRICLE The left ventricle is normal size. There is mild concentric left ventricular hypertrophy. Low normal to mildly decreased.EF-50% There is mild to moderate hypokinesis in the apical anterior wall. Transmitral Doppler flow pattern is Grade III-reversible restrictive diastolic dysfunction. No left ventricle thrombus noted on this study. There is no ventricular septal defect visualized. There is no left ventricular aneurysm. There is no mass noted in the left ventricle. RIGHT VENTRICLE The right ventricle is normal size. There is normal right ventricular wall thickness. The right ventricular systolic function is normal. ATRIA The left atrium is mildly dilated. The right atrium size is normal. The interatrial septum is intact with no evidence for an atrial septal defect. AORTIC VALVE The aortic valve is calcified and displays decreased opening. The aortic valve is moderately sclerotic. There is trace aortic regurgitation. There is mild valvular aortic stenosis. There is no aortic valvular vegetation. MITRAL VALVE The mitral valve is calcified but opens well. Mitral annular calcification is moderate. Mitral regurgitation is trace to mild. There is no mitral valve stenosis. There is no evidence of mitral valve prolapse. TRICUSPID VALVE The tricuspid valve leaflets are thickened , but open well. There is trace to mild tricuspid regurgitation.RVSP-20 mmof Hg. There is no tricuspid valve stenosis. There is no tricuspid valve prolapse or vegetation. PULMONIC VALVE The pulmonic valve is not well visualized. GREAT VESSELS The aortic root is normal in size. The ascending aorta is normal in size. The pulmonary artery is normal. The IVC is normal in size and collapses >50% with inspiration. PERICARDIAL EFFUSION There is no pleural effusion. Trivial Pericardial effusion. <Conclusion> The left ventricle is normal size. There is mild concentric left ventricular hypertrophy. Low normal to mildly decreased.EF-50% There is trace aortic regurgitation. Mitral regurgitation is trace to mild. There is trace to mild tricuspid regurgitation.RVSP-20 mmof Hg. Trivial Pericardial effusion.
[2016-08-28] MEDS: Albuterol-Ipratrop 3 mg / 0.5 (3 ml) UD IH SCH ×3 (00:51→14:20)
--- NOTE | 2016-08-28 07:53 | PN ---
DATE: 08/28/2016 SUBJECTIVE: The patient appears comfortable this morning. He is not short of breath at rest. OBJECTIVE: VITAL SIGNS: Temperature is 98.0, pulse 74, respirations 18, blood pressure 148 /65. Oxygen saturation on nasal cannula is between 94-97%. HEENT: Normocephalic, atraumatic. No JVD. CARDIOVASCULAR: Systolic ejection murmur at the lower left sternal border. No S3 gallop. LUNGS: Improved breath sounds at the bases. Very minimal/less rhonchi. No wheezing. EXTREMITIES: Mild edema. No cyanosis, no clubbing. Calves are nontender to palpation. GASTROINTESTINAL: Abdomen is soft, nontender, nondistended. Bowel sounds are positive. SKIN: No acute rash. NEUROLOGIC: Limited at the present time. IMPRESSION: 1. Acute bronchitis. 2. Chronic obstructive pulmonary disease. 3. Asbestos lung disease. 4. Coronary artery disease. PLAN: The patient appears very comfortable this morning. He is not short of breath at rest. He states he is feeling much better overall. On physical exam , his bronchospasm is resolving. In addition, there is no significant alveolar arterial gradient. I will continue with the current nebulizer treatments and change to oral steroids this morning. The patient remains on antibiotic therapy. There are no temperatures noted. There is a mild leukocytosis - which may be partly due to the steroids. Cardiology evaluation by Dr. Almazan is noted. Clinical status of the patient appears significantly improved - compared to the initial presentation. I will discuss the above with the attending physician. Lopez Shah MD cc: [phone] TT: 08/28/2016 07:52:54 Confirmation # [id number] Dictation # [id number] brina CARPENTER
[2016-08-28 08:03] LABS: BASO # 0.03 K/mm3 (0.0-2.0); BASO % 0.1 % (0.0-3.0); GRAN # 28.48 (1.4-6.5); GRAN % 87.8 % (50.0-68.0); HEMATOCRIT 37.7 % (42.0-52.0); LYMPH % 6.2 % (22.0-35.0); MEAN CORPUSCULAR HEMOGLOBIN 32.7 pg (25.0-35.0); MEAN CORPUSCULAR HGB CONC 34.7 g/dl (31.0-37.0); MEAN PLATELET VOLUME 10.4 fl (7.0-11.0); MONO # 1.9 (0.1-0.6); MONO % 5.9 % (1.0-6.0); PLATELET COUNT 533 10^3/uL (120.0-450.0); RED CELL DISTRIBUTION WIDTH 16.7 % (11.5-14.5)
[2016-08-28 08:11] LABS: WHITE BLOOD COUNT 32.4 10^3/ul (4.5-11.0)
[2016-08-28 08:12] LABS: ADD MANUAL DIFF? NO
[2016-08-28 08:16] LABS: ALB/GLOB RATIO 0.8 (1.1-1.8); ALKALINE PHOSPHATASE 170 U/L (38-133); ALT/SGPT 29 U/L (7-56); AST/SGOT 45 U/L (15-59); BILIRUBIN,TOTAL 0.6 mg/dL (0.2-1.3); BLOOD UREA NITROGEN 31 mg/dL (7-21); CALCIUM 9.4 mg/dL (8.4-10.5); CARBON DIOXIDE 23 mmol/L (21-33); CHLORIDE 104 mmol/L (98-107); CHOLESTEROL 169 mg/dL (130-200); GFR AFRICAN-AMERICAN > 60; GLUCOSE,RANDOM 155 mg/dL (70-110); MAGNESIUM 2.4 mg/dL (1.7-2.2); PHOSPHOROUS 3.5 mg/dL (2.5-4.5); POTASSIUM 4.2 mmol/L (3.6-5.0); SODIUM 139 mmol/L (132-148); TOTAL PROTEIN 8.4 g/dL (5.8-8.3)
--- NOTE | 2016-08-28 08:22 | CP.PCM.PN ---
Subjective - Date & Time of Evaluation Date of Evaluation: 08/28/16 Time of Evaluation: 08:00 - Subjective Subjective: Patient is seen this morning in room 276 bed 2. He has a 1:1 at his bedside. Patient became confused last night. This morning, he is still confused. Objective - Vital Signs/Intake and Output Vital Signs (last 24 hours): Temp Pulse Resp BP Pulse Ox 98.0 F 74 18 148/65 94 L 08/28/16 05:42 08/28/16 05:49 08/28/16 05:42 08/28/16 05:42 08/28/16 05:42 Intake and Output: 08/28/16 08/28/16 06:59 18:59 Intake Total 600 Output Total 800 Balance -200 - Medications Medications: Current Medications Albuterol/Ipratropium (Duoneb 3 Mg/0.5 Mg (3 Ml) Ud) 3 ml IH Q2H PRN PRN Reason: Shortness of Breath Albuterol/Ipratropium (Duoneb 3 Mg/0.5 Mg (3 Ml) Ud) 3 ml IH [id number] [facility] Last Admin: 08/28/16 07:30 Dose: 3 ml Aspirin (Aspirin Chewable) 81 mg PO DAILY [facility] Last Admin: 08/27/16 10:22 Dose: 81 mg Clopidogrel Bisulfate (Plavix) 75 mg PO DAILY [facility] Last Admin: 08/27/16 10:22 Dose: 75 mg Famotidine (Pepcid) 20 mg PO BID [facility] Last Admin: 08/27/16 17:28 Dose: 20 mg Azithromycin (Zithromax 500mg In Ns) 250 mls @ 167 mls/hr IVPB DAILY [facility] PRN Reason: Protocol Last Admin: 08/27/16 10:16 Dose: 167 mls/hr Isosorbide Mononitrate (Imdur) 60 mg PO DAILY [facility] Last Admin: 08/27/16 10:25 Dose: 60 mg Metoprolol Tartrate (Lopressor) 100 mg PO BID [facility] Last Admin: 08/27/16 17:30 Dose: 100 mg Prednisone (Prednisone Tab) 40 mg PO DAILY [facility] Silver Sulfadiazine (Silvadene 1% 20 Gm) 0 ea TOP BID [facility] Last Admin: 08/27/16 19:24 Dose: 1 oin Tamsulosin HCl (Flomax) 0.4 mg PO DAILY [facility] Last Admin: 08/27/16 10:25 Dose: 0.4 mg - Labs Labs: 08/28/16 07:45 08/27/16 06:50 PT 12.7 Seconds (9.9-11.8) H 08/26/16 14:45 INR 1.18 (0.93-1.08) H 08/26/16 14:45 APTT 31.6 Seconds (23.7-30.8) H 08/26/16 14:45 - Constitutional Appears: No Acute Distress - Head Exam Head Exam: ATRAUMATIC, NORMOCEPHALIC - Respiratory Exam Respiratory Exam: Decreased Breath Sounds - Cardiovascular Exam Cardiovascular Exam: +S1, +S2 - GI/Abdominal Exam GI & Abdominal Exam: Soft, Normal Bowel Sounds. absent: Tenderness Additional comments: obese - Neurological Exam Neurological Exam: Alert, Awake, Oriented x3 Assessment and Plan - Assessment and Plan (Free Text) Assessment: COPD exacerbation Confusion Leukocytosis Thrombocytosis HTN CAD Asbestosis Plan: Patient is confused this morning. He could not recognize me although he is oriented to person, place and [place] [address]. We will consult Dr. Walton, his customer professional for possible pseudoleukemic reaction vs leukemia. continue Zithromax Patient's sugar is elevated most likely secondary to steroids. Will add accucheks with low dose sliding scale coverage.
[2016-08-28] MEDS ORDERED: Sodium Chloride 0.9% 1,000 ML IV SCH (08:30)
--- NOTE | 2016-08-28 09:45 | PN ---
DATE: 08/28/2016 REASON FOR CONSULTATION AND FOLLOWUP: Cardiac evaluation, admitted with possible sepsis, leukocytosi s, altered mental status, history of coronary artery disease. BRIEF CLINICAL HISTORY: This is an 85-year-old male with past medical history significant for extens efrem coronary artery disease status post CABG 25 years ago, status post multiple stents, last PTCA ____, admitted with abdominal pain, confused, altered mental status. Still the patient is confu sed. Is on 1:1. Denies any chest pain, shortness of breath, any palpitation. PHYSICAL EXAMINATION: VITAL SIGNS: Temperature afebrile, heart rate 74, blood pressure 148/65. HEENT: PERRLA. Extraocular muscles intact. NECK: Supple. No carotid bruits. No thyromegaly. CHEST: Clear to auscultation. HEART: S1, S2 regular. ABDOMEN: Soft. EXTREMITIES: Clubbing and cyanosis negative. BLOOD WORKUP: WBC 32.4, hemoglobin 13.1, hematocrit 37.7, platelet count of 533. Chemistry shows so dium 139, potassium 4.2, chloride 104, carbon dioxide ____, anion gap of 16, BUN 31, creatinine 1.1. BNP 1760. IMPRESSION: Sepsis, abdominal pain, altered mental status. 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 Blood cult ures are negative in 24 hours. History of coronary artery disease, history of coronary artery bypass graft 25 years ago, history of multiple stents, last stent on ____. History of autoimmune h emolytic anemia. Last echocardiogram on 02/20/2015: Ejection fraction 45%, mild aortic stenosis, mi tral regurgitation, tricuspid regurgitation, right ventricular systolic pressure of 48. The patient had repeat echocardiography done yesterday that showed ejection fraction 50%, trace aortic regurgitat ion, trace to mild mitral regurgitation, trace to mild tricuspid regurgitation, right ventricular sys tolic pressure of 20. RECOMMENDATION: Continue broad spectrum antibiotic, continue beta stacia, continue isosorbide ____n itrate, continue Plavix. Monitor electrolytes. Will start gentle hydration for insensible loss. Th e BUN and creatinine are creeping up to a range of acute renal failure. Will follow with you. Will give 500 mL of IV saline at 50 mL an hour. Thank you, Dr. Lares, for providing the opportunity in taking care of this patient. May consider di scontinuing telemetry if remains stable. Will follow with you. Francisca Almazan MD cc: [id number] TT: 08/28/2016 09:15:19 Confirmation # [id number] Dictation # [id number] [place] 08/28/2016 08:37:55
[2016-08-28] MEDS: Azithromycin 500MG/NS 250ml 250 ML IVPB SCH (10:05)
[2016-08-28] MEDS: Silver Sulfadiazine 1% Cream (20 gm) TOP SCH (10:06)
[2016-08-28] MEDS: Insulin Reg-LOW-Coverage SC SCH ×2 (11:38→16:25)
--- NOTE | 2016-08-28 12:17 | CP.PCM.PN ---
Subjective - Date & Time of Evaluation Date of Evaluation: 08/28/16 Time of Evaluation: 11:15 - Subjective Subjective: General Surgery Dr. Luke Pt S&E @bedside. LI. raymond sitting in chair during exam. denies pain, N/V. no paresthesia to hand. tolerating diet. Objective - Vital Signs/Intake and Output Vital Signs (last 24 hours): Temp Pulse Resp BP Pulse Ox 98.0 F 84 18 156/76 H 94 L 08/28/16 05:42 08/28/16 10:06 08/28/16 05:42 08/28/16 10:06 08/28/16 05:42 Intake and Output: 08/28/16 08/28/16 06:59 18:59 Intake Total 600 Output Total 800 Balance -200 - Medications Medications: Current Medications Albuterol/Ipratropium (Duoneb 3 Mg/0.5 Mg (3 Ml) Ud) 3 ml IH Q2H PRN PRN Reason: Shortness of Breath Albuterol/Ipratropium (Duoneb 3 Mg/0.5 Mg (3 Ml) Ud) 3 ml IH [id number] [facility] Last Admin: 08/28/16 07:30 Dose: 3 ml Aspirin (Aspirin Chewable) 81 mg PO DAILY [facility] Last Admin: 08/28/16 10:06 Dose: 81 mg Clopidogrel Bisulfate (Plavix) 75 mg PO DAILY [facility] Last Admin: 08/28/16 10:07 Dose: 75 mg Famotidine (Pepcid) 20 mg PO BID [facility] Last Admin: 08/28/16 10:06 Dose: 20 mg Azithromycin (Zithromax 500mg In Ns) 250 mls @ 167 mls/hr IVPB DAILY [facility] PRN Reason: Protocol Last Admin: 08/28/16 10:05 Dose: 167 mls/hr Sodium Chloride (Sodium Chloride 0.9%) 1,000 mls @ 50 mls/hr IV .Q20H [facility] Stop: 08/28/16 18:00 Last Admin: 08/28/16 09:37 Dose: 50 mls/hr Insulin Human Regular (Humulin R Low) 0 units SC ACHS [facility] PRN Reason: Protocol Last Admin: 08/28/16 11:38 Dose: 1 units Isosorbide Mononitrate (Imdur) 60 mg PO DAILY [facility] Last Admin: 08/28/16 10:07 Dose: 60 mg Metoprolol Tartrate (Lopressor) 100 mg PO BID [facility] Last Admin: 08/28/16 10:06 Dose: 100 mg Prednisone (Prednisone Tab) 40 mg PO DAILY [facility] Last Admin: 08/28/16 10:07 Dose: 40 mg Silver Sulfadiazine (Silvadene 1% 20 Gm) 0 ea TOP BID [facility] Last Admin: 08/28/16 10:06 Dose: 2 oin Tamsulosin HCl (Flomax) 0.4 mg PO DAILY [facility] Last Admin: 08/28/16 10:07 Dose: 0.4 mg - Labs Labs: 08/28/16 07:45 08/28/16 07:45 Laboratory Tests 08/28/16 08/28/16 07:45 08:30 Calcium 9.4 Phosphorus 3.5 Magnesium 2.4 H Total Bilirubin 0.6 AST 45 ALT 29 Alkaline Phosphatase 170 H Total Protein 8.4 H Albumin 3.7 Triglycerides 111 Cholesterol 169 LDL Cholesterol Direct 118 HDL Cholesterol 30 Prostate Specific Ag 2.6 H TSH 3rd Generation 0.63 Microbiology 08/26/16 14:45 Blood-Venous Blood Culture - Preliminary 08/26/16 14:45 Blood-Venous NO GROWTH AFTER 24 HOURS 08/26/16 14:30 Blood-Venous Blood Culture - Preliminary 08/26/16 14:30 Blood-Venous NO GROWTH AFTER 24 HOURS - Constitutional Appears: Non-toxic, No Acute Distress - Head Exam Head Exam: NORMAL INSPECTION - Eye Exam Eye Exam: Normal appearance - ENT Exam ENT Exam: Mucous Membranes Moist - Respiratory Exam Respiratory Exam: NORMAL BREATHING PATTERN. absent: Accessory Muscle Use, Respiratory Distress - GI/Abdominal Exam GI & Abdominal Exam: absent: Distended - Extremities Exam Additional comments: R hand optiform dressing c/d/i incision well approximated sutures in place silvadene cream in place. - Neurological Exam Neurological Exam: Alert, Awake - Psychiatric Exam Psychiatric exam: Normal Affect, Normal Mood - Skin Skin Exam: Dry, Intact, Normal Color, Warm Assessment and Plan - Assessment and Plan (Free Text) Assessment: 85 y/o M s/p excision of skin lesion on R dorsum of the hand found to be Actinic Keratosis. - cont Silvadene BID - Dressing changes PRN - Will remove the stitches when the area is healed. - Cont medical management Pt discussed w/ Dr. Marly Adorno DO PGY1
[2016-08-29] MEDS: Albuterol-Ipratrop 3 mg / 0.5 (3 ml) UD IH SCH ×4 (03:05→19:46)
[2016-08-29] MEDS: Insulin Reg-LOW-Coverage SC SCH ×5 (06:11→23:16)
[2016-08-29 07:32] LABS: BASO # 0.03 K/mm3 (0.0-2.0); BASO % 0.1 % (0.0-3.0); GRAN # 20.96 (1.4-6.5); GRAN % 84.3 % (50.0-68.0); HEMATOCRIT 36.7 % (42.0-52.0); LYMPH # 1.8 (1.2-3.4); LYMPH % 7.2 % (22.0-35.0); MEAN CELL VOLUME 94.3 fL (80.0-105.0); MEAN CORPUSCULAR HEMOGLOBIN 32.4 pg (25.0-35.0); MEAN CORPUSCULAR HGB CONC 34.3 g/dl (31.0-37.0); MEAN PLATELET VOLUME 10.4 fl (7.0-11.0); MONO # 2.1 (0.1-0.6); MONO % 8.4 % (1.0-6.0); PLATELET COUNT 506 10^3/uL (120.0-450.0); RED CELL DISTRIBUTION WIDTH 16.8 % (11.5-14.5); WHITE BLOOD COUNT 24.9 10^3/ul (4.5-11.0)
[2016-08-29 07:35] LABS: ADD MANUAL DIFF? NO
[2016-08-29 07:48] LABS: ALB/GLOB RATIO 0.8 (1.1-1.8); ALKALINE PHOSPHATASE 134 U/L (38-133); ALT/SGPT 47 U/L (7-56); AST/SGOT 43 U/L (15-59); BILIRUBIN,TOTAL 0.7 mg/dL (0.2-1.3); BLOOD UREA NITROGEN 29 mg/dL (7-21); CALCIUM 8.7 mg/dL (8.4-10.5); CARBON DIOXIDE 24 mmol/L (21-33); CHLORIDE 105 mmol/L (95-110); GFR AFRICAN-AMERICAN > 60; GLUCOSE,RANDOM 124 mg/dL (70-110); POTASSIUM 4.7 mmol/L (3.6-5.0); SODIUM 140 mmol/L (132-148); TOTAL PROTEIN 7.5 g/dL (5.8-8.3)
--- NOTE | 2016-08-29 08:25 | CP.PCM.PN ---
Subjective - Date & Time of Evaluation Date of Evaluation: 08/29/16 Time of Evaluation: 08:00 - Subjective Subjective: Patient is seen this morning in room 372 bed 1. He has 1:1 sitting at the bedside. Objective - Vital Signs/Intake and Output Vital Signs (last 24 hours): Temp Pulse Resp BP Pulse Ox 97.7 F 62 21 143/71 97 08/28/16 19:40 08/28/16 19:40 08/28/16 19:40 08/28/16 19:40 08/28/16 19:40 - Medications Medications: Current Medications Albuterol/Ipratropium (Duoneb 3 Mg/0.5 Mg (3 Ml) Ud) 3 ml IH Q2H PRN PRN Reason: Shortness of Breath Albuterol/Ipratropium (Duoneb 3 Mg/0.5 Mg (3 Ml) Ud) 3 ml IH [id number] [facility] Last Admin: 08/29/16 03:05 Dose: 3 ml Aspirin (Aspirin Chewable) 81 mg PO DAILY [facility] Last Admin: 08/28/16 10:06 Dose: 81 mg Clopidogrel Bisulfate (Plavix) 75 mg PO DAILY [facility] Last Admin: 08/28/16 10:07 Dose: 75 mg Famotidine (Pepcid) 20 mg PO BID [facility] Last Admin: 08/28/16 17:11 Dose: 20 mg Azithromycin (Zithromax 500mg In Ns) 250 mls @ 167 mls/hr IVPB DAILY [facility] PRN Reason: Protocol Last Admin: 08/28/16 10:05 Dose: 167 mls/hr Insulin Human Regular (Humulin R Low) 0 units SC ACHS [facility] PRN Reason: Protocol Last Admin: 08/29/16 08:03 Dose: Not Given Isosorbide Mononitrate (Imdur) 60 mg PO DAILY [facility] Last Admin: 08/28/16 10:07 Dose: 60 mg Metoprolol Tartrate (Lopressor) 100 mg PO BID [facility] Last Admin: 08/28/16 17:11 Dose: 100 mg Prednisone (Prednisone Tab) 30 mg PO DAILY [facility] Silver Sulfadiazine (Silvadene 1% 20 Gm) 0 ea TOP BID [facility] Last Admin: 08/28/16 10:06 Dose: 2 oin Tamsulosin HCl (Flomax) 0.4 mg PO DAILY [facility] Last Admin: 08/28/16 10:07 Dose: 0.4 mg - Labs Labs: 08/29/16 07:00 08/29/16 07:00 PT 12.7 Seconds (9.9-11.8) H 08/26/16 14:45 INR 1.18 (0.93-1.08) H 08/26/16 14:45 APTT 31.6 Seconds (23.7-30.8) H 08/26/16 14:45 - Constitutional Appears: No Acute Distress - Head Exam Head Exam: ATRAUMATIC, NORMOCEPHALIC - Cardiovascular Exam Cardiovascular Exam: +S1, +S2 - GI/Abdominal Exam GI & Abdominal Exam: Soft, Normal Bowel Sounds. absent: Tenderness - Neurological Exam Neurological Exam: Alert, Awake Assessment and Plan - Assessment and Plan (Free Text) Assessment: COPD exacerbation Leukocytosis CAD HTN Plan: continue respiratory treatments and zithromax awaiting hematology consult for leukocytosis. [place] 70105 yesterday. [place] [address]. We will continue to monitor WBC count.
--- NOTE | 2016-08-29 08:26 | PN ---
DATE: 08/29/2016 SUBJECTIVE: The patient appears comfortable at rest. He is not short of breath. PHYSICAL EXAMINATION: VITAL SIGNS: Temperature is 97.7, pulse 62, respirations 18/20, blood pressure 143/71. Oxygen saturation on nasal cannula is 97%. HEENT: Normocephalic, atraumatic. No JVD. CARDIOVASCULAR: Systolic ejection murmur at the lower left sternal border. No S3 gallop. LUNGS: Clear bilaterally this morning. EXTREMITIES: Mild edema. No cyanosis, no clubbing. Calves are nontender to palpation. GASTROINTESTINAL: Abdomen is soft, nontender, nondistended. Bowel sounds are positive. SKIN: No acute rash. NEUROLOGIC: Limited at the present time. IMPRESSION: 1. Acute bronchitis. 2. Chronic obstructive pulmonary disease. 3. Asbestos lung disease. 4. Coronary artery disease. PLAN: The patient appears very comfortable this morning. He is not short of breath at rest. He is mildly confused. On physical exam, his lungs are now clear. Oxygen saturation on nasal cannula is 97%. I will continue with the current nebulizer treatments and decrease the oral steroids this morning. The patient remains on antibiotic therapy. There are no temperatures noted. The leukocytosis is decreased. All cultures are so far negative. Clinical status of the patient is certainly improved - compared to the initial presentation. I will discuss the above with the attending physician. Lopez Shah MD cc: [id number] TT: 08/29/2016 08:26:27 Confirmation # [id number] Dictation # [id number] brina CARPENTER
--- NOTE | 2016-08-29 08:48 | CP.PCM.PN ---
Subjective - Date & Time of Evaluation Date of Evaluation: 08/29/16 Time of Evaluation: 07:15 - Subjective Subjective: General Surgery Dr. Luke Pt S&E @bedside. EO. c/o pain in 3rd & 4th fingers of R hand. denies paresthesia in R hand. tolerating diet. Objective - Vital Signs/Intake and Output Vital Signs (last 24 hours): Temp Pulse Resp BP Pulse Ox 97.7 F 62 21 143/71 97 08/28/16 19:40 08/28/16 19:40 08/28/16 19:40 08/28/16 19:40 08/28/16 19:40 - Medications Medications: Current Medications Albuterol/Ipratropium (Duoneb 3 Mg/0.5 Mg (3 Ml) Ud) 3 ml IH Q2H PRN PRN Reason: Shortness of Breath Albuterol/Ipratropium (Duoneb 3 Mg/0.5 Mg (3 Ml) Ud) 3 ml IH [id number] [facility] Last Admin: 08/29/16 08:19 Dose: 3 ml Aspirin (Aspirin Chewable) 81 mg PO DAILY [facility] Last Admin: 08/28/16 10:06 Dose: 81 mg Clopidogrel Bisulfate (Plavix) 75 mg PO DAILY [facility] Last Admin: 08/28/16 10:07 Dose: 75 mg Famotidine (Pepcid) 20 mg PO BID [facility] Last Admin: 08/28/16 17:11 Dose: 20 mg Azithromycin (Zithromax 500mg In Ns) 250 mls @ 167 mls/hr IVPB DAILY [facility] PRN Reason: Protocol Last Admin: 08/28/16 10:05 Dose: 167 mls/hr Insulin Human Regular (Humulin R Low) 0 units SC ACHS [facility] PRN Reason: Protocol Last Admin: 08/29/16 08:03 Dose: Not Given Isosorbide Mononitrate (Imdur) 60 mg PO DAILY [facility] Last Admin: 08/28/16 10:07 Dose: 60 mg Metoprolol Tartrate (Lopressor) 100 mg PO BID [facility] Last Admin: 08/28/16 17:11 Dose: 100 mg Prednisone (Prednisone Tab) 30 mg PO DAILY [facility] Silver Sulfadiazine (Silvadene 1% 20 Gm) 0 ea TOP BID [facility] Last Admin: 08/28/16 10:06 Dose: 2 oin Tamsulosin HCl (Flomax) 0.4 mg PO DAILY [facility] Last Admin: 08/28/16 10:07 Dose: 0.4 mg - Labs Labs: 08/29/16 07:00 08/29/16 07:00 Laboratory Tests 08/29/16 07:00 Calcium 8.7 Total Bilirubin 0.7 AST 43 ALT 47 Alkaline Phosphatase 134 H Total Protein 7.5 Albumin 3.2 Microbiology 08/26/16 14:45 Blood-Venous Blood Culture - Preliminary 08/26/16 14:45 Blood-Venous NO GROWTH AFTER 48 HOURS 08/26/16 14:30 Blood-Venous Blood Culture - Preliminary 08/26/16 14:30 Blood-Venous NO GROWTH AFTER 48 HOURS - Constitutional Appears: Non-toxic, No Acute Distress, Confused - Head Exam Head Exam: NORMAL INSPECTION - Eye Exam Eye Exam: Normal appearance - ENT Exam ENT Exam: Mucous Membranes Moist - Respiratory Exam Respiratory Exam: NORMAL BREATHING PATTERN. absent: Chest Wall Tenderness, Respiratory Distress - GI/Abdominal Exam GI & Abdominal Exam: Soft - Extremities Exam Additional comments: R hand optiform dressing c/d/i incision open at distal aspect wound edges black - Neurological Exam Neurological Exam: Alert, Awake. absent: Oriented x3 - Psychiatric Exam Psychiatric exam: Normal Affect, Normal Mood - Skin Skin Exam: Dry, Normal Color, Warm Assessment and Plan - Assessment and Plan (Free Text) Assessment: 85 y/o M s/p excision of skin lesion on R dorsum of the hand found to be Actinic Keratosis. - sutures removed yesterday - Silvadene BID - Dressing changes PRN - Cont medical management Pt discussed w/ Dr. Marly Adorno DO PGY1
[2016-08-29] MEDS: Azithromycin 500MG/NS 250ml 250 ML IVPB SCH (09:40)
[2016-08-29] MEDS: Silver Sulfadiazine 1% Cream (20 gm) TOP SCH ×2 (09:40→17:14)
--- NOTE | 2016-08-29 19:12 | PN ---
DATE: 08/29/2016 ROOM: 372, bed 1. REASON FOR CONSULTATION AND FOLLOWUP: Coronary artery disease, altered mental status, possible sepsi s, leukocytosis. HISTORY OF PRESENT ILLNESS: The patient is an 85-year-old male with past medical history significant for extensive coronary artery disease, status post CABG 25 years ago, multiple stents, last PTCA and stent was in 10/2014, admitted with abdominal pain, confused, altered mental status. The patient con tinues to be confused. He is lying flat without any respiratory distress. There is no history of ch est pain or palpitation. PHYSICAL EXAMINATION: VITAL SIGNS: Blood pressure 143/71, respirations 21, pulse 62, temperature 97.7. HEAD: Normocephalic. EYES: Pupils normal. Conjunctivae are normal. NECK: JVP low. Carotids equal. THORAX: AP diameter normal. LUNGS: No rales. CARDIOVASCULAR: S1, S2. ABDOMEN: Soft, nontender, no organomegaly. EXTREMITIES: No clubbing, no cyanosis. LABORATORY DATA: Shows WBC 24.9, hemoglobin 12.6, hematocrit 36.7, platelets 506. Sodium 140, potas sium 4.7, BUN 29, creatinine 0.9, sugar 119, total bilirubin 0.7. AST, ALT normal. Total protein an d albumin normal. DIAGNOSES: Sepsis, abdominal pain, altered mental status, coronary artery disease, history of lobato ry artery bypass surgery 25 years ago, last stent in 10/2014, history of multiple stents in the past, history of autoimmune hemolytic anemia. Echo 02/20/2015, ejection fraction 45%, mild aortic stenosis, mitral regurgitation, tricuspid regurgitation, right ventricle systolic pressure 48 mmHg. The patie nt had repeat echocardiogram done on 08/27/2016, which showed ejection fraction 50%, trace aortic regu rgitation, trace to mild mitral regurgitation, trace to mild tricuspid regurg, right ventricle systol ic pressure 20 mmHg. PLAN: The patient is on aspirin 81 mg daily, DuoNeb hand nebulizer therapy, Flomax 0.4 daily, isosor bide mono 60 daily, metoprolol tartrate 100 mg b.i.d., Plavix 75 mg p.o. daily, azithromycin 250 mg I V daily, prednisone 20 mg daily. Starting tomorrow, prednisone will be 50 mg p.o. daily. We will co ntinue present therapy and will follow closely with you. Francisca Guan MD cc: [id number] TT: 08/29/2016 19:11:19 Confirmation # [id number] Dictation # [id number] rn
--- NOTE | 2016-08-30 00:17 | CON ---
DATE: 08/28/2016 The patient is in room 276, bed 2. REASON FOR CONSULTATION: Evaluation of leukocytosis and the background history of patient having his tory of autoimmune hemolytic anemia, who was treated with IV gamma globulin and prednisone. He had s everal recurring episodes of hemolysis requiring admissions to the hospital. The patient also has cr itical cardiac disease with coronary artery disease with multiple stents and cannot have any more med ical procedures done. As far as cardiac disease is concerned, it is critical to keep his hemog lobin at least at 10 or above if possible. The patient has been responsive to the immunoglobulins an d has been placed on prednisone and has been monitored as an outpatient and is on prednisone tapering doses, currently on 10 mg every day alternating with 7.5. He is now admitted to the hospital with a ltered mental state, possible sepsis, leukocytosis, and history of coronary artery disease as aforeme ntioned. The patient also had skin lesions on the top of his scalp removed, which was an early basal cell carcinoma that was removed, and he also had a lesion on his forearm removed, which was a verruc ous wart. That was done just about a week ago. PAST MEDICAL HISTORY: Significant for the fact that he has extensive coronary artery disease, status post coronary artery bypass surgery 25 years ago, status post multiple stents, last stent being done in 10/2014. The patient was admitted with abdominal pain, confusion, altered mental status with int ermittent confusion. Denying any history of chest pain, shortness of breath, or palpitations. PHYSICAL EXAMINATION: GENERAL: The patient is awake, alert, and oriented to time, space and person with intermittent perio ds of confusion. The patient was able to recognize me from my office and also mention my name. VITAL SIGNS: Stable. The patient is afebrile. Heart rate is 74, blood pressure is 144/65. HEENT: Head is normocephalic, atraumatic. Conjunctivae pale. Sclerae are anicteric. Pupils are e qually reactive to light and accommodation. NECK: Supple. There is no adenopathy. No thyromegaly noted. LUNGS: Reveals it to be clear to percussion and auscultation. HEART: Reveals S1 and S2 to be regular. No gallop or murmur is heard. ABDOMEN: Soft, nontender. EXTREMITIES: Reveals no cyanosis, clubbing, or edema at this time. Examination of the extremities r eveals the patient to be having a recent wound on the left hand where he had the verrucous wart remov ed, which still has sutures and bandaged. The patient has been complaining of pain in third and four th fingers on the right hand. He is status post excision of the verrucous wart on the dorsum of the right hand which was found to be actinic keratosis. There is some area of erythema around that area and it is difficult to say whether this is possibly the source of infection. The patient has multipl e ecchymoses on the skin secondary to the bleeding diathesis secondary to being on multiple blood thi nners and also being on prednisone for more than several months, at least more than 6 months. MEDICATIONS: The patient's medications were reviewed. He is on DuoNeb 3 mL inhalers q. 2 hours p.r. n. He is on aspirin 81 mg daily. He is on Plavix 75 mg daily. He is on Pepcid 20 mg b.i.d. He is on Zithromax 500 mg IV piggyback daily. He is on insulin coverage. He is on Imdur 60 mg daily. Met oprolol 100 mg b.i.d. He is on prednisone doses of 30 mg p.o. daily, which was converted from IV [place] u-Medrol. He is on Silvadene 1% topically b.i.d., and Flomax 0.4 mg daily. LABORATORY DATA: His white count, which had went up to 32,000 is the reason for which I was consulte d with a hemoglobin of 12.6, hematocrit 36, platelet count of 506,000. Sodium is 140, K is 4.7, chlo ride is 104, CO2 is 25, BUN is 29, creatinine 0.9, and blood sugar is 125. 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 In view of the fact that patient has had ongoing Félix positive hemolytic anemia, an evolving neoplastic disorder, such as lymphoma, is not an unlik ana maria possibility, also would have to rule out an underlying situation such as evolving lymphoma as wel l because of the new onset of hemolytic anemia which is less than a year old. I have requested them to send the blood for flow cytometric analysis and follow through on that. If we still does not have answers, we will then proceed to do a bone marrow aspiration biopsy as well. I will discuss my case findings with the patient's primary doctor, and the patient's family as well, including the daughter , who I know very well. I discussed with the patient but I am not really sure he understood mine clarissa tai, but I will definitely explain all of this to his daughter, who is the main caregiver. His also is slightly forgetful, appropriate for her age. We will follow the patient with you and make appropriate recommendations. Except for the flow cytome tric analysis, for now I am not going to recommend any other further testing as far as blood work is concerned. We will wait and watch and see which way the trend while waiting for the flow cyto metric analysis to come back and then plan a bone marrow aspiration biopsy. Rowdy Walton MD cc: [id number] TT: 08/30/2016 00:17:18 Confirmation # [id number] Dictation # [id number] tn
[2016-08-30] MEDS: Albuterol-Ipratrop 3 mg / 0.5 (3 ml) UD IH SCH ×4 (01:17→20:23)
[2016-08-30] MEDS: Insulin Reg-LOW-Coverage SC SCH ×5 (08:00→21:58)
--- NOTE | 2016-08-30 08:29 | CP.PCM.PN ---
Subjective - Date & Time of Evaluation Date of Evaluation: 08/30/16 Time of Evaluation: 08:00 - Subjective Subjective: Patient is seen this morning in room 367 bed 2. He has some confusion. Yesterday, he became agitated and was yelling at staff. Objective - Vital Signs/Intake and Output Vital Signs (last 24 hours): Temp Pulse Resp BP Pulse Ox 98.3 F 62 20 116/16 L 96 08/30/16 08:02 08/30/16 08:02 08/30/16 08:02 08/30/16 08:02 08/30/16 08:02 Intake and Output: 08/30/16 08/30/16 06:59 18:59 Intake Total 360 Output Total 550 Balance -190 - Medications Medications: Current Medications Albuterol/Ipratropium (Duoneb 3 Mg/0.5 Mg (3 Ml) Ud) 3 ml IH Q2H PRN PRN Reason: Shortness of Breath Albuterol/Ipratropium (Duoneb 3 Mg/0.5 Mg (3 Ml) Ud) 3 ml IH [id number] [facility] Last Admin: 08/30/16 01:17 Dose: 3 ml Aspirin (Aspirin Chewable) 81 mg PO DAILY [facility] Last Admin: 08/29/16 09:39 Dose: 81 mg Clopidogrel Bisulfate (Plavix) 75 mg PO DAILY [facility] Last Admin: 08/29/16 09:39 Dose: 75 mg Famotidine (Pepcid) 20 mg PO BID [facility] Last Admin: 08/29/16 17:17 Dose: Not Given Azithromycin (Zithromax 500mg In Ns) 250 mls @ 167 mls/hr IVPB DAILY [facility] PRN Reason: Protocol Last Admin: 08/29/16 09:40 Dose: 167 mls/hr Insulin Human Regular (Humulin R Low) 0 units SC ACHS [facility] PRN Reason: Protocol Last Admin: 08/30/16 08:03 Dose: Not Given Isosorbide Mononitrate (Imdur) 60 mg PO DAILY [facility] Last Admin: 08/29/16 09:39 Dose: 60 mg Metoprolol Tartrate (Lopressor) 100 mg PO BID [facility] Last Admin: 08/29/16 17:17 Dose: Not Given Prednisone (Prednisone Tab) 20 mg PO DAILY [facility] Stop: 08/30/16 10:01 Prednisone (Prednisone Tab) 15 mg PO DAILY [facility] Stop: 09/01/16 10:01 Silver Sulfadiazine (Silvadene 1% 20 Gm) 0 ea TOP BID [facility] Last Admin: 08/29/16 17:14 Dose: 1 applic Tamsulosin HCl (Flomax) 0.4 mg PO DAILY [facility] Last Admin: 08/29/16 09:39 Dose: 0.4 mg - Labs Labs: 08/29/16 07:00 08/29/16 07:00 PT 12.7 Seconds (9.9-11.8) H 08/26/16 14:45 INR 1.18 (0.93-1.08) H 08/26/16 14:45 APTT 31.6 Seconds (23.7-30.8) H 08/26/16 14:45 - Constitutional Appears: No Acute Distress - Head Exam Head Exam: ATRAUMATIC, NORMOCEPHALIC - Respiratory Exam Respiratory Exam: Decreased Breath Sounds - Cardiovascular Exam Cardiovascular Exam: +S1, +S2 - GI/Abdominal Exam GI & Abdominal Exam: Soft, Normal Bowel Sounds. absent: Tenderness - Neurological Exam Neurological Exam: Alert, Awake Assessment and Plan - Assessment and Plan (Free Text) Assessment: Leukocytosis Altered mental state dementia COPD exacerbation autoimmune hemolytic anemia CAD HTN Plan: Patient became agitated yesterday. He was walking around the floor, yelling at the staff. He was given IV Ativan and then calmed down. Psychiatry consult is ordered. Patient has mild dementia and is confused at times. WBC count elevated. Hematology consult is appreciated. Flow cytometry is pending. Leukemoid reaction vs. leukemia/lymphoma continue prednisone continue Zithromax, and respiratory treatments
--- NOTE | 2016-08-30 08:30 | PN ---
DATE: 08/30/2016 SUBJECTIVE: The patient appears comfortable this morning. He is not short of breath at rest. He is less confused. PHYSICAL EXAMINATION: VITAL SIGNS (last noted in the computer): Temperature is 97.7, pulse 62, respirations 18/20, blood pressure 143/71. Oxygen saturation on room air is 97% . HEENT: Normocephalic, atraumatic. No JVD. CARDIOVASCULAR: Systolic ejection murmur at the lower left sternal border. No S3 gallop. LUNGS: Clear bilaterally. EXTREMITIES: Mild edema. No cyanosis, no clubbing. Calves are nontender to palpation. GASTROINTESTINAL: Abdomen is soft, nontender, nondistended. Bowel sounds are positive. SKIN: No acute rash. NEUROLOGIC: Limited at the present time. IMPRESSION: 1. Acute bronchitis. 2. Chronic obstructive pulmonary disease. 3. Asbestos lung disease. 4. Coronary artery disease. PLAN: The patient appears very comfortable this morning. He is not short of breath at rest. He is less confused. On physical exam, his lungs are clear. Last oxygen saturation measured on room air -- 97%. I will continue with the current nebulizer treatments and oral steroids for now. The patient remains on antibiotic therapy -- as per infectious disease. Procalcitonin done on 2016 is negative. Clinical status of the patient is certainly improved -- compared to the initial presentation. However, the overall status/prognosis of this elderly gentleman does remain guarded. I will discuss the above with the attending physician. Lopez Shah MD cc: [id number] TT: 08/30/2016 08:29:52 Confirmation # [id number] Dictation # [id number] [id number]
--- NOTE | 2016-08-30 09:17 | CP.PCM.PN ---
Subjective - Date & Time of Evaluation Date of Evaluation: 08/30/16 Time of Evaluation: 06:45 - Subjective Subjective: General Surgery Dr. Luke Pt S&E @bedside. SHIVAO. 1:1 at bedside. dementia at baseline. tolerating diet. Objective - Vital Signs/Intake and Output Vital Signs (last 24 hours): Temp Pulse Resp BP Pulse Ox 98.3 F 62 20 116/16 L 96 08/30/16 08:02 08/30/16 08:02 08/30/16 08:02 08/30/16 08:02 08/30/16 08:02 Intake and Output: 08/30/16 08/30/16 06:59 18:59 Intake Total 360 Output Total 550 Balance -190 - Medications Medications: Current Medications Albuterol/Ipratropium (Duoneb 3 Mg/0.5 Mg (3 Ml) Ud) 3 ml IH Q2H PRN PRN Reason: Shortness of Breath Albuterol/Ipratropium (Duoneb 3 Mg/0.5 Mg (3 Ml) Ud) 3 ml IH [id number] [facility] Last Admin: 08/30/16 08:51 Dose: 3 ml Aspirin (Aspirin Chewable) 81 mg PO DAILY [facility] Last Admin: 08/29/16 09:39 Dose: 81 mg Clopidogrel Bisulfate (Plavix) 75 mg PO DAILY [facility] Last Admin: 08/29/16 09:39 Dose: 75 mg Famotidine (Pepcid) 20 mg PO BID [facility] Last Admin: 08/29/16 17:17 Dose: Not Given Azithromycin (Zithromax 500mg In Ns) 250 mls @ 167 mls/hr IVPB DAILY [facility] PRN Reason: Protocol Last Admin: 08/29/16 09:40 Dose: 167 mls/hr Insulin Human Regular (Humulin R Low) 0 units SC ACHS [facility] PRN Reason: Protocol Last Admin: 08/30/16 08:03 Dose: Not Given Isosorbide Mononitrate (Imdur) 60 mg PO DAILY [facility] Last Admin: 08/29/16 09:39 Dose: 60 mg Metoprolol Tartrate (Lopressor) 100 mg PO BID [facility] Last Admin: 08/29/16 17:17 Dose: Not Given Prednisone (Prednisone Tab) 20 mg PO DAILY [facility] Stop: 08/30/16 10:01 Prednisone (Prednisone Tab) 15 mg PO DAILY [facility] Stop: 09/01/16 10:01 Quetiapine Fumarate (Seroquel) 12.5 mg PO HS PRN; Protocol PRN Reason: psychosis, agitation Silver Sulfadiazine (Silvadene 1% 20 Gm) 0 ea TOP BID [facility] Last Admin: 08/29/16 17:14 Dose: 1 applic Tamsulosin HCl (Flomax) 0.4 mg PO DAILY [facility] Last Admin: 08/29/16 09:39 Dose: 0.4 mg Ziprasidone (Geodon Inj) 10 mg IM Q12 PRN; Protocol PRN Reason: severe agitation - Labs Labs: no new labs Microbiology 08/26/16 14:45 Blood-Venous Blood Culture - Preliminary 08/26/16 14:45 Blood-Venous NO GROWTH AFTER 3 DAYS 08/26/16 14:30 Blood-Venous Blood Culture - Preliminary 08/26/16 14:30 Blood-Venous NO GROWTH AFTER 3 DAYS - Constitutional Appears: Non-toxic, No Acute Distress - Head Exam Head Exam: NORMAL INSPECTION - Eye Exam Eye Exam: Normal appearance - ENT Exam ENT Exam: Mucous Membranes Moist - Respiratory Exam Respiratory Exam: NORMAL BREATHING PATTERN. absent: Accessory Muscle Use, Respiratory Distress - Extremities Exam Additional comments: R hand optiform dressing c/d/i incision open at distal aspect - Neurological Exam Neurological Exam: Alert, Awake - Psychiatric Exam Psychiatric exam: Normal Affect, Normal Mood - Skin Skin Exam: Dry, Normal Color, Warm Assessment and Plan - Assessment and Plan (Free Text) Assessment: 85 y/o M s/p excision of skin lesion on R dorsum of the hand found to be Actinic Keratosis. - Silvadene BID - Dressing changes PRN - Cont medical management Pt discussed w/ Dr. Marly Adorno DO PGY1
[2016-08-30] MEDS: Azithromycin 500MG/NS 250ml 250 ML IVPB SCH (10:29)
[2016-08-30] MEDS: Silver Sulfadiazine 1% Cream (20 gm) TOP SCH (10:29)
--- NOTE | 2016-08-30 10:37 | CON ---
DATE: 08/30/2016 Shortly, the patient is an 85-year-old male with a past medical history of COPD, coronary a rtery disease status post CABG, stent, hemolytic anemia. The patient was admitted on the medical floor for shortness of breath, dyspnea for the past week. Th e patient also has a history of dementia, as per report from the Emergency Room. This technical document writer got inv olved into the patient's care because of the periods of confusion and agitation. The patient was seen and examined today. Discussed with nursing staff on the medical floor. The pat tricia presented to be alert, oriented in place. Thinks that right now is 2002, as well as August. The patient seems to be surprised when this technical document writer corrected the patient with the date. The patient als o thinks that he is 87-year-old, not 85. Overall, the patient was pleasant and cooperative. At time s, the patient was observed confabulating. The patient said that he is not sure why his family broug ht him here. The patient has concrete thought process. When this technical document writer asked what brought the kenneth ent to the hospital, the patient said that it is ambulance. The patient reported that he lives with his daughter, as well as with his , who is still working. The patient denied being depressed, de nied any thoughts of harming himself or others, denied intent or plan. The patient denied feeling an xious. The patient, "I'm not worried about anything. My mood is good. I have couple of bucks in my pocket. I have nothing to worry about." The patient denied hearing voices, denied seeing things, d enied paranoid ideations. The patient said that his appetite and sleep is good. The patient was obs erved eating; ate 100% of his meal, and seems to have very good appetite. PAST PSYCHIATRIC HISTORY: The patient denied history of being evaluated by psychiatrist. Denied his tory of suicidal attempts, denied history of being admitted to the psychiatric inpatient unit, denied using drugs, denied using alcohol. VITAL SIGNS: Stable. Temperature 98.3, pulse 62, blood pressure 116/70, oxygen saturation is 96. MEDICATIONS : Reviewed. DuoNeb, aspirin, Zithromax, Plavix, Pepcid, Humulin, Imdur, Lopressor, pre dnisone, Seroquel will be started at the nighttime only if patient will be agitated or psychotic, Renny max, Geodon for severe agitation. As per nursing staff report, patient had episodes of being agitated yesterday at 8:00 a.m. The patie nt was walking around, yelling at staff, and the patient was cursing. The patient seems to be confus ed yesterday, but there are no such episodes for past 24 hours. Reports were reviewed. Abdominal CT scan was done on 08/26, diverticulosis without CT evidence of di verticulitis. Echocardiogram was also done on 08/27. Mild left ventricle hypertrophy, trace aortic regurgitation, trivial pericardial effusion, trace of mild tricuspid regurgitation. The patient was seen by coning machine operator. The patient was seen by Dr. Walton. MENTAL STATUS EXAMINATION: The patient appears to be alert and oriented in place, but not in date. Fair eye contact. Speech was normal rate. At times, the patient confabulates. Mood described, "I f eel good." Affect was reactive, mood congruent. Thought Process: Confabulation, circumstantiality. Thought Content: The patient denied visual, auditory, or tactile hallucinations. Denied paranoid ideations. The patient denied thoughts of harming himself or others, denied intent or plan, and the patient does not present to be psychotic. Insight and judgment are limited. Impulses are well predi ctable right now. IMPRESSION: Episodes of confusion and agitated behavior, most likely related to a combination of the factors. The patient has chronic obstructive pulmonary disease exacerbation. The patient was on pr ednisone. The patient also has underlying dementia. A combination of the factors could give the pat ient delirium stage. At present moment, the patient seems to be improving. The patient has multiple medical issues includ ing leukocytosis, dementia, chronic obstructive pulmonary disease, autoimmune hemolytic anemia, coron stacy artery disease, hypertension. The patient also has dementia. PLAN: Continue current management. This technical document writer will implement Seroquel 25 mg at the nighttime as ne eded for agitation, as well as if the patient will be severely agitated or trying to elope from the h ospital, or in case the patient will be aggressive. Geodon will be ordered IM 10 mg q. 12 hours. Me anwhile, the patient's mental status is improving, and this technical document writer had impression if medical issues w ill be addressed such as COPD, as well as when the patient will be weaned off from the prednisone and will be feeling better from the medical standpoint, the patient's mental status will be improving. This technical document writer would recommend to follow up with psychiatrist over the weekend. Dr. Huerta will be seein g the patient every other day. Meanwhile, continue current management, physical therapy evaluation. Also, executive secretary social welfare evaluation about discharge planning. Also family should be involved. Consider neurology consult. Thank you very much for letting me participate in care of your patient. Will get back to you and adv ise accordingly. Juju Boyle MD cc: [id number] TT: 08/30/2016 10:37:16 Confirmation # [id number] Dictation # [id number]
--- NOTE | 2016-08-30 13:03 | PN ---
DATE: 08/30/2016 The patient is in room 367, bed #2. REASON FOR CONSULTATION AND FOLLOWUP: Coronary artery disease, altered mental status, possible sepsi s, leukocytosis. HISTORY OF PRESENT ILLNESS: The patient is an 85-year-old male with past medical history significant for extensive coronary artery disease, status post CABG 25 years ago, multiple stents, last PTCA juan pablo nt was in 10/2014, admitted with abdominal pain, confused, altered mental status. The patient continu es to be confused, but today his mentation is better. He is lying flat without any cardiac symptoms. PHYSICAL EXAMINATION: VITAL SIGNS: Blood pressure 144/76, respirations 20, pulse 62, temperature 98.3. HEAD: Normocephalic. EYES: Pupils normal. Conjunctivae are slightly pale. NECK: JVP low. Carotids equal. THORAX: AP diameter normal. LUNGS: Clear. CARDIOVASCULAR: S1, S2. ABDOMEN: Soft, no tenderness, no organomegaly. EXTREMITIES: No clubbing, no cyanosis. LABORATORY DATA: WBC 24.9, hemoglobin 12.6, hematocrit 36.7, platelet 506, random sugar 120. Sodium 140, potassium 4.7, BUN 29, creatinine 0.9, random glucose 124. AST, ALT normal. Alkaline phosphat ase is 134. Total protein 7.5, albumin 3.2. DIAGNOSES: Sepsis, abdominal pain, altered mental status, coronary artery disease, history of lobato ry artery bypass surgery 25 years ago, last stent in 10/2014, history of multiple stents, autoimmune h emolytic anemia, echo 02/20/2015 showed ejection fraction 45%, mild aortic stenosis, mitral regurgitat ion, tricuspid regurgitation, right ventricular systolic pressure 48 mmHg suggestive of mild pulmonar y hypertension. Repeat echo done on 08/27/2016 showed ejection fraction 50%, trace aortic regurgitati on, trace to mild mitral regurgitation, trace to mild tricuspid regurg, right ventricle systolic pres sure 20 mmHg. PLAN: The patient is on aspirin 81 mg p.o. daily, DuoNeb hand nebulizer therapy, Flomax 0.4 mg daily , isosorbide mono 60 mg daily, metoprolol tartrate 100 mg b.i.d., Plavix 75 mg daily, azithromycin 50 0 mg IV daily, prednisone 50 mg p.o. daily. Continue present therapy. We will follow with you. Francisca Guan MD cc: [id number] TT: 08/30/2016 13:03:05 Confirmation # [id number] Dictation # [id number]
[2016-08-30 13:12] LABS: HEMATOCRIT 37.4 % (42.0-52.0); MEAN CELL VOLUME 96.9 fL (80.0-105.0); MEAN CORPUSCULAR HEMOGLOBIN 32.6 pg (25.0-35.0); MEAN CORPUSCULAR HGB CONC 33.7 g/dl (31.0-37.0); MEAN PLATELET VOLUME 10.2 fl (7.0-11.0); RED CELL DISTRIBUTION WIDTH 17.4 % (11.5-14.5); WHITE BLOOD COUNT 17.5 10^3/ul (4.5-11.0)
--- NOTE | 2016-08-30 13:15 | RAD ---
HISTORY: rule out pneumonia COMPARISON: 08/26/2016 FINDINGS: LUNGS: No active pulmonary disease. PLEURA: Bilateral calcified pleural plaques CARDIOVASCULAR: Normal. OSSEOUS STRUCTURES: Sternal wires VISUALIZED UPPER ABDOMEN: Normal. OTHER FINDINGS: None. IMPRESSION: No active disease.
[2016-08-30 13:21] LABS: ALB/GLOB RATIO 0.8 (1.1-1.8); ALKALINE PHOSPHATASE 123 U/L (38-133); ALT/SGPT 53 U/L (7-56); AST/SGOT 56 U/L (15-59); BILIRUBIN,TOTAL 0.6 mg/dL (0.2-1.3); BLOOD UREA NITROGEN 28 mg/dL (7-21); CALCIUM 8.7 mg/dL (8.4-10.5); CARBON DIOXIDE 25 mmol/L (21-33); CHLORIDE 106 mmol/L (95-110); GFR AFRICAN-AMERICAN > 60; GLUCOSE,RANDOM 78 mg/dL (70-110); POTASSIUM 4.3 mmol/L (3.6-5.0); SODIUM 140 mmol/L (132-148); TOTAL PROTEIN 6.7 g/dL (5.8-8.3)
--- NOTE | 2016-08-30 13:53 | CP.PCM.CON ---
History of Present Illness - History of Present Illness History of Present Illness: 85 year old male with PMH of COPD, CAD S/P CABG S/P PCI, HTN, history of divericulitis, gastritis, GERD, benign prostatic hyperplasia, history of asbestosis was initially brought in to [facility] because of worsening shortness of breath, non-productive cough. He was found to be in COPD exacerbation and is currently being treated for this. He was placed on steroids and since then has had leukocytosis which kept increasing. Infectious Diseases consult is requested to further evaluate and manage. Currently the patient is comfortable, no note of fevers, not in respiratory distress, no cough currently , no vomiting, no diarrhea. Full review of systems is difficult to obtain because of the patient's dementia. Review of Systems - Review of Systems Systems not reviewed;Unavailable: Dementia Past Patient History - Infectious Disease Hx of Infectious Diseases: None - Tetanus Immunizations Tetanus Immunization: Unknown - Past Medical History & Family History Past Medical History?: Yes - Past Social History Smoking Status: Former Smoker Alcohol: None Drugs: Denies Home Situation {Lives}: With Family - CARDIAC Hx Hypertension: Yes - PULMONARY Hx Respiratory Disorders: Yes Hx Chronic Obstructive Pulmonary Disease (COPD): Yes - NEUROLOGICAL Hx Neurological Disorder: Yes Hx Dementia: Yes - HEENT Hx HEENT Problems: (WEARS RX GLASSES) Hx Deafness: Yes - RENAL Hx Chronic Kidney Disease: No - ENDOCRINE/METABOLIC Hx Endocrine Disorders: No - HEMATOLOGICAL/ONCOLOGICAL Hx Blood Disorders: Yes (ASBESTOSIS) Hx Anemia: Yes - INTEGUMENTARY Hx Dermatological Problems: Yes - MUSCULOSKELETAL/RHEUMATOLOGICAL Hx Musculoskeletal Disorders: Yes Hx Falls: Yes - GASTROINTESTINAL Hx Gastrointestinal Disorders: Yes (GASTRITIS) Hx Diverticulitis: Yes Hx Gall Bladder Disease: Yes Hx Gastroesophageal Reflux: Yes - GENITOURINARY/GYNECOLOGICAL Hx Genitourinary Disorders: Yes (URINARY FREQUENCY) Hx Prostate Problems: Yes (BPH) Hx Urinary Tract Infection: Yes - PSYCHIATRIC Hx Anxiety: (SMOKED CIGARETTES QUIT 10 YRS AGO) Hx Depression: No Hx Emotional Abuse: No Hx Physical Abuse: No Hx Substance Use: No - SURGICAL HISTORY Hx Surgeries: Yes Hx Cardiac Catheterization: Yes Hx Cholecystectomy: Yes Hx Coronary Stent: Yes (X8) Hx Open Heart Surgery: Yes - ANESTHESIA Hx Anesthesia Reactions: No Hx Malignant Hyperthermia: No Meds Allergies/Adverse Reactions: Allergies Allergy/AdvReac Type Severity Reaction Status Date / Time No Known Allergies Allergy Verified 08/09/15 15:01 - Medications Medications: Current Medications Albuterol/Ipratropium (Duoneb 3 Mg/0.5 Mg (3 Ml) Ud) 3 ml IH Q2H PRN PRN Reason: Shortness of Breath Albuterol/Ipratropium (Duoneb 3 Mg/0.5 Mg (3 Ml) Ud) 3 ml IH [id number] [facility] Last Admin: 08/29/16 13:50 Dose: 3 ml Aspirin (Aspirin Chewable) 81 mg PO DAILY [facility] Last Admin: 08/29/16 09:39 Dose: 81 mg Clopidogrel Bisulfate (Plavix) 75 mg PO DAILY [facility] Last Admin: 08/29/16 09:39 Dose: 75 mg Famotidine (Pepcid) 20 mg PO BID [facility] Last Admin: 08/29/16 09:39 Dose: 20 mg Azithromycin (Zithromax 500mg In Ns) 250 mls @ 167 mls/hr IVPB DAILY [facility] PRN Reason: Protocol Last Admin: 08/29/16 09:40 Dose: 167 mls/hr Insulin Human Regular (Humulin R Low) 0 units SC ACHS [facility] PRN Reason: Protocol Last Admin: 08/29/16 11:45 Dose: Not Given Isosorbide Mononitrate (Imdur) 60 mg PO DAILY [facility] Last Admin: 08/29/16 09:39 Dose: 60 mg Metoprolol Tartrate (Lopressor) 100 mg PO BID [facility] Last Admin: 08/29/16 09:39 Dose: 100 mg Prednisone (Prednisone Tab) 30 mg PO DAILY [facility] Last Admin: 08/29/16 09:40 Dose: 30 mg Silver Sulfadiazine (Silvadene 1% 20 Gm) 0 ea TOP BID [facility] Last Admin: 08/29/16 09:40 Dose: 1 applic Tamsulosin HCl (Flomax) 0.4 mg PO DAILY [facility] Last Admin: 08/29/16 09:39 Dose: 0.4 mg Physical Exam - Constitutional Appears: Non-toxic, No Acute Distress - Head Exam Head Exam: NORMAL INSPECTION - Neck Exam Neck exam: Negative for: Lymphadenopathy, Meningismus - Respiratory Exam Respiratory Exam: Decreased Breath Sounds - Cardiovascular Exam Cardiovascular Exam: +S1, +S2 - GI/Abdominal Exam GI & Abdominal Exam: Soft. absent: Tenderness Results - Vital Signs Recent Vital Signs: Last Vital Signs Temp 97.7 F 08/28/16 19:40 Pulse 62 08/28/16 19:40 Resp 21 08/28/16 19:40 BP 143/71 08/28/16 19:40 Pulse Ox 97 08/28/16 19:40 - Labs Result Diagrams: 08/30/16 12:00 08/30/16 12:00 Labs: Laboratory Results - last 24 hr 08/28/16 08/28/16 08/28/16 08:30 16:04 22:00 WBC RBC Hgb Hct MCV MCH MCHC RDW Plt Count MPV Gran % Lymph % (Auto) Lake % (Auto) Eos % (Auto) Baso % (Auto) Gran # Lymph # Lake # Eos # Baso # Sodium Potassium Chloride Carbon Dioxide Anion Gap BUN Creatinine Est GFR ( Amer) Est GFR (Non-Af Amer) POC Glucose (mg/dL) 161 H 149 H Random Glucose Calcium Total Bilirubin AST ALT Alkaline Phosphatase Total Protein Albumin Globulin Albumin/Globulin Ratio Procalcitonin < 0.05 L WB Flow Cytometry 08/29/16 08/29/16 08/29/16 07:00 07:22 07:30 WBC 24.9 H D RBC 3.89 Hgb 12.6 L Hct 36.7 L MCV 94.3 MCH 32.4 MCHC 34.3 RDW 16.8 H Plt Count 506 H MPV 10.4 Gran % 84.3 H Lymph % (Auto) 7.2 L Lake % (Auto) 8.4 H Eos % (Auto) 0.0 L Baso % (Auto) 0.1 Gran # 20.96 H Lymph # 1.8 Lake # 2.1 H Eos # 0.0 Baso # 0.03 Sodium 140 Potassium 4.7 Chloride 105 Carbon Dioxide 24 Anion Gap 16 BUN 29 H Creatinine 0.9 Est GFR ( Amer) > 60 Est GFR (Non-Af Amer) > 60 POC Glucose (mg/dL) 122 H Random Glucose 124 H Calcium 8.7 Total Bilirubin 0.7 AST 43 ALT 47 Alkaline Phosphatase 134 H Total Protein 7.5 Albumin 3.2 Globulin 4.2 Albumin/Globulin Ratio 0.8 L Procalcitonin WB Flow Cytometry Reference test 08/29/16 08/29/16 11:12 16:18 WBC RBC Hgb Hct MCV MCH MCHC RDW Plt Count MPV Gran % Lymph % (Auto) Lake % (Auto) Eos % (Auto) Baso % (Auto) Gran # Lymph # Lake # Eos # Baso # Sodium Potassium Chloride Carbon Dioxide Anion Gap BUN Creatinine Est GFR ( Amer) Est GFR (Non-Af Amer) POC Glucose (mg/dL) 137 H 119 H Random Glucose Calcium Total Bilirubin AST ALT Alkaline Phosphatase Total Protein Albumin Globulin Albumin/Globulin Ratio Procalcitonin WB Flow Cytometry Assessment & Plan - Assessment and Plan (Free Text) Plan: Assessment Leukocytosis probably secondary to systemic steroid use, R/O sepsis acute exacerbation of COPD, clinically improving CAD S/P CABG S/P PCI HTN history of divericulitis gastritis GERD benign prostatic hyperplasia history of asbestosis Plan Follow up blood, urine cx, repeat PCT; CXR does not reveal pneumonia Patient is on Zithromax for the COPD exacerbation - will continue this but not add another agent Will trend WBC count; if it continues to increase despite tapering steroid doses , should consider CT scan of the abdomen and pelvis Will follow clinically
--- NOTE | 2016-08-30 14:44 | CT ---
PROCEDURE: CT HEAD WITHOUT CONTRAST. HISTORY: eval subdural hem, period of confusion COMPARISON: 08/09/2015 TECHNIQUE: Axial computed tomography images were obtained through the head/brain without intravenous contrast. Radiation dose: Total exam DLP = 734 mGy-cm. FINDINGS: HEMORRHAGE: No intracranial hemorrhage. BRAIN: No mass effect or edema. There is moderate atrophy over both cerebral convexities. Mild microvascular changes are seen VENTRICLES: Unremarkable. No hydrocephalus. CALVARIUM: Unremarkable. PARANASAL SINUSES: Unremarkable as visualized. No significant inflammatory changes. MASTOID AIR CELLS: Unremarkable as visualized. No inflammatory changes. OTHER FINDINGS: None. IMPRESSION: Moderate atrophy
[2016-08-31] MEDS: Albuterol-Ipratrop 3 mg / 0.5 (3 ml) UD IH SCH ×2 (01:45→07:33)
--- NOTE | 2016-08-31 07:40 | CP.PCM.PN ---
Subjective - Date & Time of Evaluation Date of Evaluation: 08/31/16 Time of Evaluation: 07:38 - Subjective Subjective: SURGERY CONSULT NOTE FOR DR. MONZON 85M seen and examined at bedside. RAMIRO. Patient has no complaints. Optifoam in place. Objective - Vital Signs/Intake and Output Vital Signs (last 24 hours): Temp Pulse Resp BP Pulse Ox 98.7 F 71 20 156/91 H 98 08/30/16 16:00 08/30/16 16:00 08/30/16 16:00 08/30/16 16:00 08/30/16 16:00 Intake and Output: 08/31/16 08/31/16 06:59 18:59 Intake Total 740 Output Total 650 Balance 90 - Medications Medications: Current Medications Albuterol/Ipratropium (Duoneb 3 Mg/0.5 Mg (3 Ml) Ud) 3 ml IH Q2H PRN PRN Reason: Shortness of Breath Albuterol/Ipratropium (Duoneb 3 Mg/0.5 Mg (3 Ml) Ud) 3 ml IH [id number] [facility] Last Admin: 08/31/16 07:33 Dose: 3 ml Aspirin (Aspirin Chewable) 81 mg PO DAILY [facility] Last Admin: 08/30/16 10:28 Dose: 81 mg Clopidogrel Bisulfate (Plavix) 75 mg PO DAILY [facility] Last Admin: 08/30/16 10:27 Dose: 75 mg Famotidine (Pepcid) 20 mg PO BID [facility] Last Admin: 08/30/16 17:54 Dose: 20 mg Azithromycin (Zithromax 500mg In Ns) 250 mls @ 167 mls/hr IVPB DAILY [facility] PRN Reason: Protocol Last Admin: 08/30/16 10:29 Dose: 167 mls/hr Insulin Human Regular (Humulin R Low) 0 units SC ACHS [facility] PRN Reason: Protocol Last Admin: 08/30/16 21:58 Dose: Not Given Isosorbide Mononitrate (Imdur) 60 mg PO DAILY [facility] Last Admin: 08/30/16 10:35 Dose: 60 mg Metoprolol Tartrate (Lopressor) 100 mg PO BID [facility] Last Admin: 08/30/16 17:54 Dose: 100 mg Prednisone (Prednisone Tab) 15 mg PO DAILY [facility] Stop: 09/01/16 10:01 Quetiapine Fumarate (Seroquel) 12.5 mg PO HS PRN; Protocol PRN Reason: psychosis, agitation Silver Sulfadiazine (Silvadene 1% 20 Gm) 0 ea TOP BID [facility] Last Admin: 08/30/16 10:29 Dose: 1 applic Tamsulosin HCl (Flomax) 0.4 mg PO DAILY [facility] Last Admin: 08/30/16 10:28 Dose: 0.4 mg Ziprasidone (Geodon Inj) 10 mg IM Q12 PRN; Protocol PRN Reason: severe agitation Last Admin: 08/31/16 04:11 Dose: 10 mg - Labs Labs: 08/30/16 12:00 08/30/16 12:00 PT 12.7 Seconds (9.9-11.8) H 08/26/16 14:45 INR 1.18 (0.93-1.08) H 08/26/16 14:45 APTT 31.6 Seconds (23.7-30.8) H 08/26/16 14:45 - Constitutional Appears: Non-toxic, No Acute Distress - Head Exam Head Exam: ATRAUMATIC - Eye Exam Eye Exam: EOMI, PERRL - Respiratory Exam Respiratory Exam: Clear to Ausculation Bilateral, NORMAL BREATHING PATTERN - Cardiovascular Exam Cardiovascular Exam: REGULAR RHYTHM, +S1, +S2 - GI/Abdominal Exam GI & Abdominal Exam: Soft. absent: Distended, Firm, Guarding, Rigid, Tenderness , Rebound - Extremities Exam Additional comments: right hand wound from surgical site, significantly improved, area of necrosis resolved Assessment and Plan - Assessment and Plan (Free Text) Assessment: 85 y/o M s/p excision of skin lesion on R dorsum of the hand found to be Actinic Keratosis. - Silvadene BID - Dressing changes PRN - Cont medical management Further recs discuss with Dr. Marly Araujo, PGY1
[2016-08-31] MEDS: Insulin Reg-LOW-Coverage SC SCH (07:51)
[2016-08-31 07:53] VITALS: RESP 18; TEMP 98; O2SAT 98
--- NOTE | 2016-08-31 08:42 | CP.PCM.PN ---
Subjective - Date & Time of Evaluation Date of Evaluation: 08/31/16 Time of Evaluation: 07:45 - Subjective Subjective: Patient is feeling better. He is confused at times. Objective - Vital Signs/Intake and Output Vital Signs (last 24 hours): Temp Pulse Resp BP Pulse Ox 98 F 67 18 155/77 H 98 08/31/16 06:00 08/31/16 06:00 08/31/16 06:00 08/31/16 06:00 08/31/16 06:00 Intake and Output: 08/31/16 08/31/16 06:59 18:59 Intake Total 740 Output Total 650 Balance 90 - Medications Medications: Current Medications Albuterol/Ipratropium (Duoneb 3 Mg/0.5 Mg (3 Ml) Ud) 3 ml IH Q2H PRN PRN Reason: Shortness of Breath Albuterol/Ipratropium (Duoneb 3 Mg/0.5 Mg (3 Ml) Ud) 3 ml IH [id number] [facility] Last Admin: 08/31/16 07:33 Dose: 3 ml Aspirin (Aspirin Chewable) 81 mg PO DAILY [facility] Last Admin: 08/30/16 10:28 Dose: 81 mg Clopidogrel Bisulfate (Plavix) 75 mg PO DAILY [facility] Last Admin: 08/30/16 10:27 Dose: 75 mg Famotidine (Pepcid) 20 mg PO BID [facility] Last Admin: 08/30/16 17:54 Dose: 20 mg Azithromycin (Zithromax 500mg In Ns) 250 mls @ 167 mls/hr IVPB DAILY [facility] PRN Reason: Protocol Last Admin: 08/30/16 10:29 Dose: 167 mls/hr Insulin Human Regular (Humulin R Low) 0 units SC ACHS [facility] PRN Reason: Protocol Last Admin: 08/31/16 07:51 Dose: Not Given Isosorbide Mononitrate (Imdur) 60 mg PO DAILY [facility] Last Admin: 08/30/16 10:35 Dose: 60 mg Metoprolol Tartrate (Lopressor) 100 mg PO BID [facility] Last Admin: 08/30/16 17:54 Dose: 100 mg Prednisone (Prednisone Tab) 15 mg PO DAILY [facility] Stop: 09/01/16 10:01 Quetiapine Fumarate (Seroquel) 12.5 mg PO HS PRN; Protocol PRN Reason: psychosis, agitation Silver Sulfadiazine (Silvadene 1% 20 Gm) 0 ea TOP BID [facility] Last Admin: 08/30/16 10:29 Dose: 1 applic Tamsulosin HCl (Flomax) 0.4 mg PO DAILY [facility] Last Admin: 08/30/16 10:28 Dose: 0.4 mg Ziprasidone (Geodon Inj) 10 mg IM Q12 PRN; Protocol PRN Reason: severe agitation Last Admin: 08/31/16 04:11 Dose: 10 mg - Labs Labs: 08/30/16 12:00 08/30/16 12:00 PT 12.7 Seconds (9.9-11.8) H 08/26/16 14:45 INR 1.18 (0.93-1.08) H 08/26/16 14:45 APTT 31.6 Seconds (23.7-30.8) H 08/26/16 14:45 - Constitutional Appears: No Acute Distress - Head Exam Head Exam: ATRAUMATIC, NORMOCEPHALIC - Respiratory Exam Respiratory Exam: Decreased Breath Sounds, NORMAL BREATHING PATTERN - Cardiovascular Exam Cardiovascular Exam: +S1, +S2 - GI/Abdominal Exam GI & Abdominal Exam: Soft, Normal Bowel Sounds. absent: Tenderness - Neurological Exam Neurological Exam: Alert, Awake, Oriented x3 Assessment and Plan - Assessment and Plan (Free Text) Assessment: COPD exacerbation Dementia HTN CAD Plan: Patient is feeling better. He had CT Head yesterday which showed moderate atrophy. finished course of antibiotics. WBC count trending downward. most likely leukemoid reaction Patient evaluated by ID and no further antibiotics. Will discharge home today. 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
--- NOTE | 2016-08-31 09:33 | PN ---
DATE: 08/31/2016 The patient was seen and examined at bedside. He feels much better and he states he is not short of breath. PHYSICAL EXAMINATION: VITAL SIGNS: His temperature is 98, pulse 68, respirations 18, pulse oximetry is 98% on room air. H is WBC is elevated at 7.5, hemoglobin of 12.6. HEAD, EARS, NOSE AND THROAT: Within normal limits. NECK: Supple with no jugular vein distention. CHEST: Symmetrical. HEART: S1, S2. No S3. Regular. LUNGS: Diminished breath sounds bilaterally with few rhonchi, no wheezing. GASTROINTESTINAL: Abdomen soft, nontender with no organomegaly. SKIN: No acute skin rash. NEUROLOGIC: No focal deficits. ASSESSMENT: 1. Chronic obstructive pulmonary disease exacerbation. 2. Acute bronchitis. 3. Asbestosis. 4. Coronary artery disease. PLAN: The patient is much improved this morning. He is not short of breath. He is breathing well o n room air with oxygen saturation of 98%. I reviewed his medications and the plan to discharge him t dante. His last procalcitonin is negative, so the elevated white count is most likely due to steroids . Agree with current plan. Ruben Jimenez MD cc: [id number] TT: 08/31/2016 09:33:19 Confirmation # [id number] Dictation # [id number]
[2016-08-31 09:51] LABS: HEMATOCRIT 43.7 % (42.0-52.0); MEAN CELL VOLUME 96.3 fL (80.0-105.0); MEAN CORPUSCULAR HEMOGLOBIN 32.6 pg (25.0-35.0); MEAN CORPUSCULAR HGB CONC 33.9 g/dl (31.0-37.0); MEAN PLATELET VOLUME 10.3 fl (7.0-11.0); RED CELL DISTRIBUTION WIDTH 16.7 % (11.5-14.5); WHITE BLOOD COUNT 19.1 10^3/ul (4.5-11.0)
[2016-08-31] MEDS: Azithromycin 500MG/NS 250ml 250 ML IVPB SCH (10:51)
[2016-08-31 10:57] VITALS: BP 143/75; PULSE 89
--- NOTE | 2016-08-31 11:48 | CP.PCM.PN ---
Subjective - Date & Time of Evaluation Date of Evaluation: 08/31/16 Time of Evaluation: 11:00 - Subjective Subjective: Comfortable in bed, not in distress, no cough, no fevers, no nausea, no diarrhea. Objective - Vital Signs/Intake and Output Vital Signs (last 24 hours): Temp Pulse Resp BP Pulse Ox 98 F 67 18 155/77 H 98 08/31/16 06:00 08/31/16 06:00 08/31/16 06:00 08/31/16 06:00 08/31/16 06:00 Intake and Output: 08/31/16 08/31/16 06:59 18:59 Intake Total 740 Output Total 650 Balance 90 - Medications Medications: Current Medications Albuterol/Ipratropium (Duoneb 3 Mg/0.5 Mg (3 Ml) Ud) 3 ml IH Q2H PRN PRN Reason: Shortness of Breath Albuterol/Ipratropium (Duoneb 3 Mg/0.5 Mg (3 Ml) Ud) 3 ml IH [id number] [facility]S [facility] BEDS AT [facility] Last Admin: 08/31/16 07:33 Dose: 3 ml Aspirin (Aspirin Chewable) 81 mg PO DAILY [facility] 234 B[facility]S [facility] Last Admin: 08/30/16 10:28 Dose: 81 mg Clopidogrel Bisulfate (Plavix) 75 mg PO DAILY [facility] 234 BEDS AT [facility] Last Admin: 08/30/16 10:27 Dose: 75 mg Famotidine (Pepcid) 20 mg PO BID [facility] 234 B[facility]S AT [facility] Last Admin: 08/30/16 17:54 Dose: 20 mg Azithromycin (Zithromax 500mg In Ns) 250 mls @ 167 mls/hr IVPB DAILY [facility] 234 B[facility]S AT [facility] PRN Reason: Protocol Last Admin: 08/30/16 10:29 Dose: 167 mls/hr Insulin Human Regular (Humulin R Low) 0 units SC ACHS [facility] 234 BEDS AT [facility] PRN Reason: Protocol Last Admin: 08/31/16 07:51 Dose: Not Given Isosorbide Mononitrate (Imdur) 60 mg PO DAILY [facility] 234 B[facility]S AT [facility] Last Admin: 08/30/16 10:35 Dose: 60 mg Metoprolol Tartrate (Lopressor) 100 mg PO BID [facility] 234 B[facility]S AT [facility] Last Admin: 08/30/16 17:54 Dose: 100 mg Prednisone (Prednisone Tab) 15 mg PO DAILY [facility] 234 B[facility]S AT [facility] Stop: 09/01/16 10:01 Quetiapine Fumarate (Seroquel) 12.5 mg PO HS PRN; Protocol PRN Reason: psychosis, agitation Silver Sulfadiazine (Silvadene 1% 20 Gm) 0 ea TOP BID [facility] Last Admin: 08/30/16 10:29 Dose: 1 applic Tamsulosin HCl (Flomax) 0.4 mg PO DAILY [facility] 234 B[facility]S AT [facility] Last Admin: 08/30/16 10:28 Dose: 0.4 mg Ziprasidone (Geodon Inj) 10 mg IM Q12 PRN; Protocol PRN Reason: severe agitation Last Admin: 08/31/16 04:11 Dose: 10 mg - Labs Labs: 08/30/16 12:00 08/30/16 12:00 PT 12.7 Seconds (9.9-11.8) H 08/26/16 14:45 INR 1.18 (0.93-1.08) H 08/26/16 14:45 APTT 31.6 Seconds (23.7-30.8) H 08/26/16 14:45 - Constitutional Appears: Non-toxic, No Acute Distress - Head Exam Head Exam: NORMAL INSPECTION - ENT Exam ENT Exam: Mucous Membranes Moist - Neck Exam Neck Exam: absent: Lymphadenopathy, Meningismus - Respiratory Exam Respiratory Exam: Decreased Breath Sounds - Cardiovascular Exam Cardiovascular Exam: +S1, +S2 - GI/Abdominal Exam GI & Abdominal Exam: Soft. absent: Tenderness Assessment and Plan - Assessment and Plan (Free Text) Plan: Assessment Leukocytosis probably secondary to systemic steroid use, with no evidence of sepsis acute exacerbation of COPD, clinically improving CAD S/P CABG S/P PCI HTN history of divericulitis gastritis GERD benign prostatic hyperplasia history of asbestosis Plan blood, urine cx negative, repeat PCT is only <0.05; CXR does not reveal pneumonia Patient is on Zithromax for the COPD exacerbation and should finish course WBC count is trending downwards
--- NOTE | 2016-08-31 19:49 | PN ---
DATE: 08/31/2016 The patient is in room 367, bed #2. REASON FOR CONSULTATION AND FOLLOWUP: Coronary artery disease, altered mental status, possible sepsi s, leukocytosis. HISTORY OF PRESENT ILLNESS: The patient is an 85-year-old male with past medical history significant for extensive coronary artery disease status post CABG 25 years ago, multiple stents. Last PTCA juan pablo nt was in 10/2014. Admitted with abdominal pain, confused, altered mental status. The patient now is better. He is conscious, alert, answers all questions. He is sitting in chair wi thout any chest pain, shortness of breath, palpitation. The patient on examination: VITAL SIGNS: Blood pressure 143/75, respirations 18, pulse 89, temperature 98. HEAD: Normocephalic. EYES: Pupils normal, conjunctivae normal. NOSE AND THROAT: Normal. NECK: JVP low, carotid equal. THORAX: AP diameter normal. LUNGS: Clear. CARDIOVASCULAR: S1, S2. ABDOMEN: Soft, nontender, no organomegaly. EXTREMITIES: No clubbing, no cyanosis. LABORATORIES: WBC 19.1, hemoglobin 14.8, hematocrit 43.7, platelet 560. Sodium 140, potassium 4.3, BUN 28, creatinine 1.0. Random glucose 78, calcium 8.7. AST 56, ALT 53, total protein 6.7, albumin 2.9. DIAGNOSES: Sepsis, abdominal pain, altered mental status, coronary artery disease, history of lobato ry bypass surgery 25 years ago; last stent in 10/2014. History of multiple stents, autoimmune hemoly tic anemia. Echo 02/20/2015 showed ejection fraction 45%, mild aortic stenosis, mitral regurgitation , tricuspid regurgitation, right ventricle systolic pressure 48 mmHg. Repeat echo on 08/27/2016 show ed ejection fraction 50%, trace aortic regurgitation, [id number] mitral regurgitation, trace-to-mi ld tricuspid regurg, right ventricle systolic pressure 20 mmHg. The patient's mental status has improved. The patient clinically has no cardiac symptoms. Will cont inue present therapy with aspirin 81 mg daily, Flomax 0.4 daily, isosorbide mono 60 daily, metoprolol tartrate 100 mg b.i.d., Plavix 75 mg daily, azithromycin 500 mg IV daily, prednisone 50 mg p.o. patrice singh Will continue present therapy. Will follow with you. Francisca Guan MD cc: [id number] TT: 08/31/2016 19:48:21 Confirmation # [id number] Dictation # [id number] jn
--- NOTE | 2016-09-01 20:24 | PN ---
DATE: 08/30/2016 The patient is in room 367, bed 1. REASON FOR CONSULTATION: This 85-year-old white male is with-known to me, anemia, was admitted to the hospital where he has been noted to have persistent leukocytosis, and reason for consultation was to make sure nothing else is brewing. The patient has a past medical history of coronary artery disease, COPD, CABG status post cardiac juan pablo nting, history of diverticulitis, gastritis, GERD, benign prostatic hyperplasia, history of asbestosi s, [facility] of worsening shortness of breath, nonproductive cough ; found to have COPD with exacerbation, being treated with steroids which is being now tapered. Jennifer use of the increase in white count, the patient has been covered with antibiotics, and we were called in consultation. Currently, the patient is mentally slightly confused without any fevers, not in any respiratory distr ess. No cough, no nausea, no vomiting. The patient's white count since admission has been gradually decreasing PHYSICAL EXAMINATION: The patient is examined in bed. T-max is 97.7, pulse is 62, respirations 21, blood pressure is 142/71, pulse ox is 97. HEAD: Normocephalic, atraumatic. Conjunctivae pale, sclerae are anicteric, pupils are equally react efrem to light and accommodation. Examination of the oropharynx reveals no oropharyngeal lesions. NECK: Supple. There is no adenopathy. LUNGS: Reveal decreased breath sounds, scattered wheezes bilaterally. EXAMINATION OF THE CARDIOVASCULAR SYSTEM: Reveals S1 and S2 to be normal. No gallop or murmur is he rayray. ABDOMEN: Soft, nontender. Bowel sounds are present. No rebound, rigidity, or guarding is noted. NEUROLOGIC: The patient has no focal deficits, has intermittent confusion, but he was able to recogn ize me. The patient had a CAT scan of the head done which shows cerebral atrophy with no major acute patholog y. LABORATORIES: Reveal a white count which was up to 30,000, has decreased to 17.5; hemoglobin is 12.6 , hematocrit 37.4, platelet count was 469,000. Blood sugars have been 161. Sodium is 140, K is 4.3, chloride is 106, CO2 is 25, BUN is 28, creatinine 1, and blood sugar is 73. The patient's medications were also reviewed. He is on DuoNeb 3 mL inhaled q. 2 hours. He is on asp irin 81 daily, Plavix 75 mg p.o. daily, famotidine 20 mg p.o. b.i.d. He is on azithromycin 500 mg IV piggyback daily. He is on insulin coverage. He is on Imdur 60 mg p.o. daily, Lopressor 100 mg p.o. b.i.d., prednisone 30 mg p.o. daily which is going to be tapered. He is on Silvadene cream to affec cherelle areas of the open skin topically b.i.d. He is on Flomax 0.4 mg p.o. 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 The sutures have been removed, and the site appears to be heal ing. Workup for the elevated white count had included a flow cytometric analysis to make sure we were not dealing with an evolving myeloproliferative or lymphoproliferative disorder. That has turned to be n egative. 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 Will try to taper the prednisone down to at least a tolerable dose that he was on as an outpatient, which was 7.5 mg a day. Skin changes on the body are related to a combination of the Plavix, aspirin, and the prednisone. Will try to taper the doses of predniso ne down to the lowest possible dose for his Félix-positive hemolytic anemia. Other workup for PNH has been negative so far. Will follow the patient with you, and make appropriate recommendations. Rowdy Walton MD cc: [id number] TT: 08/30/2016 23:04:46 Confirmation # [id number] Dictation # [id number] melo
== END 2016-08-31 11:35 | disposition home or self-care (01) | DRG 191 ==
LOC: ED 14:02 → ERH 16:47 → 2RSO 21:59 → 3RSO 08-28 20:27 → 3RNO 08-30 08:18
PROVIDERS: ADMIT Internal Medicine; ATTEND Internal Medicine
DX: J44.0 Chronic obstructive pulmonary disease with (acute) lower respiratory infection (principal); D59.1 Other autoimmune hemolytic anemias; N17.9 Acute kidney failure, unspecified; I27.2 Other secondary pulmonary hypertension; I11.0 Hypertensive heart disease with heart failure; R65.10 Systemic inflammatory response syndrome (SIRS) of non-infectious origin without acute organ dysfunction; F03.90 Unspecified dementia, unspecified severity, without behavioral disturbance, psychotic disturbance, mood disturbance, and anxiety; I50.9 Heart failure, unspecified; I08.3 Combined rheumatic disorders of mitral, aortic and tricuspid valves; J44.1 Chronic obstructive pulmonary disease with (acute) exacerbation; D47.3 Essential (hemorrhagic) thrombocythemia; H91.90 Unspecified hearing loss, unspecified ear; I25.10 Atherosclerotic heart disease of native coronary artery without angina pectoris; J20.9 Acute bronchitis, unspecified; J61 Pneumoconiosis due to asbestos and other mineral fibers; K21.9 Gastro-esophageal reflux disease without esophagitis; K29.70 Gastritis, unspecified, without bleeding; L57.0 Actinic keratosis; N40.0 Benign prostatic hyperplasia without lower urinary tract symptoms; D72.829 Elevated white blood cell count, unspecified; T38.0X5A Adverse effect of glucocorticoids and synthetic analogues, initial encounter; Z72.0 Tobacco use; Z77.090 Contact with and (suspected) exposure to asbestos; Z79.02 Long term (current) use of antithrombotics/antiplatelets; Z79.82 Long term (current) use of aspirin; Z79.899 Other long term (current) drug therapy; Z87.01 Personal history of pneumonia (recurrent); Z87.440 Personal history of urinary (tract) infections; Z90.49 Acquired absence of other specified parts of digestive tract; Z95.1 Presence of aortocoronary bypass graft; Z95.5 Presence of coronary angioplasty implant and graft; R35.0 Frequency of micturition; R40.2412 Glasgow coma scale score 13-15, at arrival to emergency department; K59.00 Constipation, unspecified; I51.7 Cardiomegaly; D72.823 Leukemoid reaction

== ENCOUNTER 2016-12-07 09:24 | Emergency (ER) | payer MEDICARE, BC ==
[2016-12-07 09:24] VITALS: BMI 26.7
--- NOTE | 2016-12-07 10:02 | ED PDOC ---
Arrival/HPI - General Chief Complaint: Abdominal Pain Time Seen by Provider: 12/07/16 09:29 - History of Present Illness Narrative History of Present Illness (Text): 12/07/16 09:58 84 year old male with past medical history HTN, CAD s/p CABG and multiple stents, gastritis, diverticulitis, asbestosis, hemolytic anemia and COPD presents to [facility] ED via EMS for abdominal pain. Patient reports abdominal pain started 2 days ago, located just below the umbilicus. He describes the pain as dull and nagging, non radiating, and not exacerbated with movement. Patient reports having one darker than usual bowel movement 2 days ago as well. The pain subsided a day after. Patient is scheduled to get a chest port placed next week for his hemolytic anemia treatment. Patient denies of recent headache , fever, chills, chest pain, nausea, vomiting, diet changes, diarrhea or constipation. (Johan Grande) Past Medical History - Provider Review Nursing Documentation Reviewed: Yes - Infectious Disease Hx of Infectious Diseases: None - Tetanus Immunization Tetanus Immunization: Unknown - Cardiac Hx Pacemaker: No Other/Comment: cardiac stent - Pulmonary Hx Respiratory Disorders: Yes Hx Chronic Obstructive Pulmonary Disease (COPD): Yes - Neurological Hx Paralysis: No - HEENT Hx HEENT Disorder: (WEARS RX GLASSES) Hx Deafness: Yes - Renal Hx Renal Disorder: No - Endocrine/Metabolic Hx Endocrine Disorders: No - Hematological/Oncological Hx Blood Transfusions: Yes Hx Blood Transfusion Reaction: No - Integumentary Hx Dermatological Disorder: Yes - Musculoskeletal/Rheumatological Hx Musculoskeletal Disorders: Yes - Gastrointestinal Hx Gastrointestinal Disorders: Yes (GASTRITIS) Hx Diverticulitis: Yes Hx Gall Bladder Disease: Yes Hx Gastroesophageal Reflux: Yes - Genitourinary/Gynecological Hx Genitourinary Disorders: Yes (URINARY FREQUENCY) Hx Prostate Problems: Yes (BPH) Hx Urinary Tract Infection: Yes - Psychiatric Hx Anxiety: (SMOKED CIGARETTES QUIT 10 YRS AGO) Hx Depression: No Hx Emotional Abuse: No Hx Physical Abuse: No Hx Substance Use: No - Surgical History Hx Cardiac Catheterization: Yes Hx Cholecystectomy: Yes Hx Coronary Stent: Yes (X8) Hx Open Heart Surgery: Yes - Anesthesia Hx Anesthesia Reactions: No Hx Malignant Hyperthermia: No - Suicidal Assessment Feels Threatened In Home Enviroment: No Family/Social History - Physician Review Nursing Documentation Reviewed: Yes Family/Social History: Unknown Family HX Smoking Status: Former Smoker Hx Alcohol Use: No Hx Substance Use: No Hx Substance Use Treatment: No Allergies/Home Meds Allergies/Adverse Reactions: Allergies No Known Allergies Allergy (Verified 12/07/16 09:37) Home Medications: Home Meds Medication Instructions Recorded Confirmed Tamsulosin [Flomax] 0.4 mg PO DAILY 03/08/13 12/07/16 Clopidogrel [Plavix] 75 mg PO DAILY 05/02/14 12/07/16 Famotidine [Pepcid] 20 mg PO BID 02/22/15 12/07/16 Isosorbide Mononitrate [Imdur] 60 mg PO DAILY 07/12/15 12/07/16 Aspirin [Aspirin Chewable] 81 mg PO DAILY 08/07/15 12/07/16 Metoprolol Tartrate [Lopressor] 0 mg PO BID 08/07/15 12/07/16 Prednisone [Deltasone] 0 mg PO DAILY 08/07/15 12/07/16 ALPRAZolam [Xanax] 0.25 mg PO PRN PRN 12/05/16 12/07/16 Review of Systems - Physician Review All systems were reviewed & negative as marked: Yes - Review of Systems Constitutional: Normal. absent: Fatigue, Fevers Eyes: Normal. absent: Vision Changes ENT: Normal Respiratory: Normal. absent: SOB, Cough Cardiovascular: Normal. absent: Chest Pain, Palpitations, Syncope Gastrointestinal: Abdominal Pain, Stool Changes. absent: Constipation, Diarrhea , Nausea, Vomiting Skin: Other Neurological: Dizziness. absent: Headache Endocrine: Normal Hemo/Lymphatic: Normal Psychiatric: Normal, Anxiety Physical Exam Vital Signs Reviewed: Yes Temperature: Afebrile Blood Pressure: Normal Pulse: Regular Respiratory Rate: Normal Appearance: Positive for: Well-Appearing, Non-Toxic, Comfortable Pain Distress: None Mental Status: Positive for: Alert and Oriented X 3 - Systems Exam Head: Present: Atraumatic, Normocephalic Pupils: Present: PERRL Extroacular Muscles: Present: EOMI Conjunctiva: Present: Normal Mouth: Present: Moist Mucous Membranes Neck: Present: Normal Range of Motion Respiratory/Chest: Present: Clear to Auscultation, Good Air Exchange. No: Respiratory Distress, Accessory Muscle Use Cardiovascular: Present: Regular Rate and Rhythm, Normal S1, S2. No: Murmurs Abdomen: Present: Normal Bowel Sounds. No: Tenderness, Distention, Peritoneal Signs Upper Extremity: Present: Neurovascularly Intact, Other (ecchymosis from previous venipuncture attempts bilateral upper extremity). No: Cyanosis, Edema Lower Extremity: Present: Normal Inspection, Neurovascularly Intact. No: Edema Neurological: Present: GCS=15, CN II-XII Intact, Speech Normal Skin: Present: Warm, Dry Psychiatric: Present: Alert, Oriented x 3 Vital Signs Temp Pulse Resp BP Pulse Ox 12/07/16 15:14 18 99 12/07/16 15:00 98 F 85 19 118/75 98 12/07/16 13:55 97.9 F 85 19 131/75 98 12/07/16 12:38 65 18 138/69 98 12/07/16 11:24 61 18 141/75 98 12/07/16 09:44 97.1 F L 74 17 143/78 98 Medical Decision Making ED Course and Treatment: Patient seen and examined with resident. Came up with treatment and disposition plan with resident. A 86 year old male with abdominal pain. (Maged Gomez) 12/07/16 10:10 -CBC, CMP -CT abdomen -Blood cultures -UA -cardiac iso Prior visit: 08/26/16 for leukocytosis 12/07/16 10:48 WBC 42.6, VBG w/ lactate and zosyn ordered Troponin, lipase negative 12/07/16 12:25 Lactate 3.0. Patient only has leukocytosis, vitals within normal limit, does not meet SIRS criteria 12/07/16 14:[address] Brooks, whom wants input from patient's director talent acquisition 12/07/16 14:[address] Wynne, recommends patient to be discharged home and follow up as outpatient 12/07/16 14:[address] Brooks in agreement with discharging patient home 12/07/16 14:50 Informed patient's daughter Cyndy about discharge plan over the phone. Daughter agrees with the plan and will take pt to PMD and director talent acquisition on Friday 86 year old male with history of HTN, CAD s/p CABG and multiple stents, COPD, hemolytic anemia, diverticulitis presents with abdominal pain. Patient was admitted to [facility] on 08/28/16 for leukocytosis and workups were all negative. Patient's abdominal pain resolved. CT abdomen showed no acute findings. Patient is hemodynamically stable, soft belly, non tender. Patient will follow up with Dr. Brooks and Dr. Walton once discharged. (Johan Grande) - Lab Interpretations Lab Results: 12/07/16 09:45 12/07/16 09:45 Lab Results 12/07/16 12:10: pO2 60 H, VBG pH 7.29 L, VBG pCO2 49.0, VBG HCO3 23.6, VBG Total CO2 25.1, VBG O2 Sat (Calc) 92.6 H, VBG Base Excess -3.4 L, VBG Potassium 3.8, Glucose 100, Lactate 3.0 H, FiO2 21.0, Sodium 141.0, Chloride 106.0, Venous Blood Potassium 3.8 12/07/16 10:49: Urine Color Light yellow, Urine Appearance Clear, Urine pH 7.0, Ur Specific [place] 1.015, Urine Protein Trace H, Urine Glucose (UA) Negative, Urine Ketones Negative, Urine Blood Trace-intact H, Urine Nitrate Negative, Urine Bilirubin Negative, Urine Urobilinogen 0.2, Ur Leukocyte Esterase Negative , Urine RBC 0 - 2, Urine WBC 0 - 2, Ur Epithelial Cells 0 - 2, Urine Bacteria Small 12/07/16 10:20: PT 12.0 H, INR 1.11 H, APTT 29.7 12/07/16 09:45: Sodium 140, Potassium 3.6, Chloride 106, Carbon Dioxide 22, Anion Gap 16, BUN 13, Creatinine 1.2, Est GFR ( Amer) > 60, Est GFR (Non- Af Amer) 58, Random Glucose 125 H, Calcium 9.1, Total Bilirubin 0.7, AST 27, ALT 26, Alkaline Phosphatase 148 H, Lactate Dehydrogenase 605, Total Creatine Kinase 21 L, Troponin I < 0.01 D, Total Protein 7.7, Albumin 3.9, Globulin 3.8 , Albumin/Globulin Ratio 1.0 L, Lipase 78 12/07/16 09:45: WBC 42.6 H* D, RBC 4.40, Hgb 14.8, Hct 43.9, MCV 99.8, MCH 33.6 , MCHC 33.7, RDW 16.5 H, Plt Count 193, MPV 10.8, Neutrophils % (Manual) 64, Band Neutrophils % 3 H, Lymphocytes % (Manual) 10 L, Monocytes % (Manual) 7 H, Basophils % (Manual) 3 H, Metamyelocytes % 5, Myelocytes % 8, Platelet Evaluation Normal, Large Platelets Present - RAD Interpretation Narrative RAD Interpretations (Text): 12/07/16 14:07 PROCEDURE: CT Abdomen and Pelvis with contrast HISTORY: abdominal pain COMPARISON: None. TECHNIQUE: Contrast dose: 100 cc of Omni 350 Radiation dose: Total exam DLP = 937 mGy-cm. This CT exam was performed using one or more of the following dose reduction techniques: Automated exposure control, adjustment of the mA and/or kV according to patient size, and/or use of iterative reconstruction technique. FINDINGS: LOWER THORAX: Multiple calcified pleural plaques are seen. LIVER: Unremarkable. No gross lesion or ductal dilatation. GALLBLADDER AND BILE DUCTS: Unremarkable. PANCREAS: Unremarkable. No gross lesion or ductal dilatation. SPLEEN: Unremarkable. ADRENALS: Unremarkable. No mass. KIDNEYS AND URETERS: Unremarkable. No hydronephrosis. No solid mass. VASCULATURE: Unremarkable. No aortic aneurysm. BOWEL: Unremarkable. No obstruction. No gross mural thickening. APPENDIX: Normal appendix. PERITONEUM: Unremarkable. No free fluid. No free air. LYMPH NODES: Unremarkable. No enlarged lymph nodes. BLADDER: Unremarkable. REPRODUCTIVE: Unremarkable. BONES: Multilevel disc degeneration OTHER FINDINGS: None. IMPRESSION: No acute intra-abdominal findings (Johan Grande) Radiology Orders: 12/07/16 10:03 ABDOMEN & PELVIS [ABD PELVIS PO & IV CONTRAST] [CT] Stat - EKG Interpretation EKG Interpretation (Text): 12/07/16 11:07 NSR at 74bpm, no new onset of ST changes from previous EKG. Read by me. (Johan Grande) - Medication Orders Current Medication Orders: Discontinued Medications Sodium Chloride (Sodium Chloride 0.9%) 1,000 mls @ 100 mls/hr IV .Q10H YSESI Last Admin: 12/07/16 10:06 Dose: 100 mls/hr Piperacillin Sod/Tazobactam Sod (Zosyn 3.375 In Ns 100ml) 100 mls @ 200 mls/hr IVPB STAT STA PRN Reason: Protocol Stop: 12/07/16 11:13 Last Admin: 12/07/16 10:52 Dose: 200 mls/hr Iohexol (Omnipaque 240 (50 Ml)) Confirm Administered Dose 50 ml .ROUTE .STK-MED ONE Stop: 12/07/16 10:33 Iohexol (Omnipaque 350 100 Ml) Confirm Administered Dose 350 mg .ROUTE .STK-MED ONE Stop: 12/07/16 10:33 - PA / PRECISION INSTRUMENT MAKER / Resident Statement / has reviewed & agrees with the documentation as recorded. / has examined the patient and agrees with the treatment plan. Disposition/Present on Arrival - Present on Arrival Any Indicators Present on Arrival: No History of DVT/PE: No History of Uncontrolled Diabetes: No Urinary Catheter: No History of Decub. Ulcer: No History Surgical Site Infection Following: None - Disposition Have Diagnosis and Disposition been Completed?: Yes Disposition Time: 14:51 Patient Plan: Discharge - Disposition Diagnosis: Leukocytosis, Abdominal pain Disposition: HOME/ ROUTINE Condition: IMPROVED Discharge Instructions (ExitCare): Leukocytosis (ED) Additional Instructions: Chidi Maddox, thank you for letting us take care of you today. Your provider was Dr. Gomez. You were treated for Leukocytosis. The emergency medical care you received today was directed at your acute symptoms. If you were prescribed any medication, please fill it and take as directed. It may take several days for your symptoms to resolve. Return to the Emergency Department if your symptoms worsen, do not improve, or if you have any other problems. Please contact your doctor or call one of the physicians/clinics you have been referred to that are listed on the Patient Visit Information form that is included in your discharge packet. Bring any paperwork you were given at discharge with you along with any medications you are taking to your follow up visit. Our treatment cannot replace ongoing medical care by a primary care provider (PCP) outside of the emergency department. Thank you for allowing the [facility] team to be part of your care today. Referrals: Ani Pavon MD [Primary Care Provider] - Follow up with primary
[2016-12-07 10:06] LABS: HEMOGLOBIN 14.8 gm/dL (14.0-18.0); MEAN CELL VOLUME 99.8 fL (80.0-105.0); MEAN CORPUSCULAR HEMOGLOBIN 33.6 pg (25.0-35.0); MEAN CORPUSCULAR HGB CONC 33.7 g/dl (31.0-37.0); MEAN PLATELET VOLUME 10.8 fl (7.0-11.0); PLATELET COUNT 193 10^3/uL (120.0-450.0); RED CELL DISTRIBUTION WIDTH 16.5 % (11.5-14.5)
[2016-12-07 10:12] LABS: ALBUMIN 3.9 g/dL (3.0-4.8); ALT/SGPT 26 U/L (7-56); AST/SGOT 27 U/L (15-59); BLOOD UREA NITROGEN 13 mg/dL (7-21); CALCIUM 9.1 mg/dL (8.4-10.5); GFR AFRICAN-AMERICAN > 60; GFR NON-AFRICAN AMERICAN 58; LIPASE 78 U/L (23-300)
[2016-12-07] MEDS ORDERED: Sodium Chloride 0.9% 1,000 ML IV SCH (10:15)
[2016-12-07 10:16] LABS: WHITE BLOOD COUNT 42.6 10^3/ul (4.5-11.0)
[2016-12-07 10:26] LABS: TROPONIN I < 0.01 ng/mL
[2016-12-07] MEDS ORDERED: Iohexol 350 MG/100 ML VIAL ONE (10:32)
[2016-12-07] MEDS ORDERED: Iohexol 240 (50 ml) ONE (10:32)
[2016-12-07 10:43] LABS: BAND 3 % (0-2); BASOPHIL 3 % (0.0-1.0); LARGE PLATELETS PRESENT; LYMPHOCYTE 10 % (22.0-35.0); METAMYELOCYTE 5 %; MONOCYTE 7 % (1.0-6.0); MYELOCYTE 8 %; NEUTROPHIL 64 % (50.0-70.0); PLATELET ESTIMATE NORMAL (NORMAL)
[2016-12-07 10:44] LABS: INR 1.11 (0.93-1.08); PARTIAL THROMBOPLASTIN TIME 29.7 Seconds (23.7-30.8)
[2016-12-07] MEDS ORDERED: Piperacillin/Tazobact 3.375 gm 100 ML IVPB STA (10:44)
[2016-12-07 11:01] LABS: URINE BILIRUBIN NEGATIVE (NEGATIVE); URINE BLOOD TRACE-INTACT (NEGATIVE); URINE GLUCOSE (UA) NEGATIVE (NEGATIVE); URINE LEUKOCYTE ESTERASE NEGATIVE Leu/uL (NEGATIVE); URINE NITRATE NEGATIVE (NEGATIVE); URINE PROTEIN TRACE mg/dL (<30 mg/dL); URINE UROBILINOGEN 0.2 E.U./dL (<1 E.U./dL)
[2016-12-07 11:03] LABS: URINE APPEARANCE CLEAR (CLEAR); URINE COLOR LIGHT YELLOW (YELLOW)
[2016-12-07 11:17] LABS: URINE BACTERIA SMALL (NEG); URINE EPITHELIAL CELLS 0 - 2 /hpf (0-5); URINE RBC 0 - 2 /hpf (0-2); URINE WBC 0 - 2 /hpf (0-6)
[2016-12-07 12:18] LABS: VENOUS BLOOD GAS BASE EXCESS -3.4 mmol/L (0.0-2.0); VENOUS BLOOD GAS PO2 60 mm/Hg (30-55); VENOUS BLOOD PH 7.29 (7.32-7.43)
--- NOTE | 2016-12-07 14:00 | CT ---
PROCEDURE: CT Abdomen and Pelvis with contrast HISTORY: abdominal pain COMPARISON: None. TECHNIQUE: Contrast dose: 100 cc of Omni 350 Radiation dose: Total exam DLP = 937 mGy-cm. This CT exam was performed using one or more of the following dose reduction techniques: Automated exposure control, adjustment of the mA and/or kV according to patient size, and/or use of iterative reconstruction technique. FINDINGS: LOWER THORAX: Multiple calcified pleural plaques are seen. LIVER: Unremarkable. No gross lesion or ductal dilatation. GALLBLADDER AND BILE DUCTS: Unremarkable. PANCREAS: Unremarkable. No gross lesion or ductal dilatation. SPLEEN: Unremarkable. ADRENALS: Unremarkable. No mass. KIDNEYS AND URETERS: Unremarkable. No hydronephrosis. No solid mass. VASCULATURE: Unremarkable. No aortic aneurysm. BOWEL: Unremarkable. No obstruction. No gross mural thickening. APPENDIX: Normal appendix. PERITONEUM: Unremarkable. No free fluid. No free air. LYMPH NODES: Unremarkable. No enlarged lymph nodes. BLADDER: Unremarkable. REPRODUCTIVE: Unremarkable. BONES: Multilevel disc degeneration OTHER FINDINGS: None. IMPRESSION: No acute intra-abdominal findings
[2016-12-07 14:01] VITALS: PULSE 85
[2016-12-07 15:09] VITALS: BP 118/75; TEMP 98
[2016-12-07 15:16] VITALS: RESP 18; O2SAT 99
--- NOTE | 2016-12-08 09:18 | CARD ---
APPROVED REPORT EKG Measurement Heart [id number] [place] [id number] [id number] <Conclusion> Sinus rhythm withl premature ventricular complexes Right bundle branch block PATRICK old
== END 2016-12-07 15:16 | disposition home or self-care (01) ==
LOC: ED 09:24
DX: D72.829 Elevated white blood cell count, unspecified (principal); R10.9 Unspecified abdominal pain; Z87.891 Personal history of nicotine dependence; J44.9 Chronic obstructive pulmonary disease, unspecified; I25.10 Atherosclerotic heart disease of native coronary artery without angina pectoris; Z95.1 Presence of aortocoronary bypass graft; I10 Essential (primary) hypertension
CPT/HCPCS: 74177; 80053; 81001; 82550; 82803; 82948; 83615; 83690; 84484; 85025; 85610; 85730; 87040; 93005; 96360; 96361; 99284; J2543; J7030; J7040; Q9966; Q9967

== ENCOUNTER 2016-12-11 08:16 | Day surgery (SDC) | payer MEDICARE, BC ==
[2016-12-05 12:05] VITALS: BMI 26.7
[2016-12-11 08:42] LABS: HEMOGLOBIN 13.7 gm/dL (14.0-18.0); MEAN CELL VOLUME 100.2 fL (80.0-105.0); MEAN CORPUSCULAR HEMOGLOBIN 33.7 pg (25.0-35.0); MEAN CORPUSCULAR HGB CONC 33.6 g/dl (31.0-37.0); MEAN PLATELET VOLUME 10.6 fl (7.0-11.0); PLATELET COUNT 216 10^3/uL (120.0-450.0); RBC 4.07 10^6/uL (3.5-6.1); RED CELL DISTRIBUTION WIDTH 16.8 % (11.5-14.5)
[2016-12-11 08:52] LABS: BLOOD UREA NITROGEN 18 mg/dL (7-21); CALCIUM 9.1 mg/dL (8.4-10.5); GFR AFRICAN-AMERICAN > 60; GFR NON-AFRICAN AMERICAN 52
[2016-12-11 08:53] LABS: WHITE BLOOD COUNT 45.4 10^3/ul (4.5-11.0)
[2016-12-11 08:54] LABS: INR 1.07 (0.93-1.08); PARTIAL THROMBOPLASTIN TIME 28.7 Seconds (23.7-30.8); PROTHROMBIN TIME 11.6 Seconds (9.9-11.8)
[2016-12-11 09:28] LABS: BAND 5 % (0-2); LYMPHOCYTE 9 % (22.0-35.0); MONOCYTE 12 % (1.0-6.0); NEUTROPHIL 62 % (50.0-70.0)
[2016-12-11 09:29] LABS: METAMYELOCYTE 11 %; MYELOCYTE 1 %; PLATELET ESTIMATE NORMAL (NORMAL)
[2016-12-11] MEDS ORDERED: Lidocaine 2% Inj (20ml) ONE (09:55)
[2016-12-11] MEDS ORDERED: Midazolam 2 MG/2 ML VIAL ONE ×2 (09:56→10:49)
--- NOTE | 2016-12-11 09:57 | CP.SDSHP ---
Same Day Surgery H & P - History Proposed Procedure: insertion of venous port. Pre-Op Diagnosis: hemolytic anemia. - Previous Medical/Surgical History Cardiac: Hypertension, ASHD/CAD, Hx of CHF Pulmonary: Emphysema/COPD, Smoking Endocrine/Metabolic: Obesity, Renal Disease Misc: Anemia Pain: 0. No Pain Previous Surgical History: cholycystectomy,CABG. - Allergies Allergies: Allergies No Known Allergies Allergy (Verified 12/07/16 09:37) - Physical Exam General Appearance: WNL. Vital Signs: Vital Signs 12/11/16 09:02 Temperature 98 F Pulse Rate 63 Respiratory 20 Rate Blood Pressure 133/66 O2 Sat by Pulse 99 Oximetry Mental Status: Alert & Oriented x3 Neuro: WNL Heart: WNL Lungs: WNL GI: WNL - {Optional Preform as Required} Other Pertinent Findings: hx of cyst in kidney prostatic hypertrophy. - Impression Impression: hemolytic anemia. - Date & Time Date: 12/11/16 Time: 09:57 Short Stay Discharge - Short Stay Discharge Admitting Diagnosis/Reason for Visit: LEUKOSYTOSIS D72.829 Disposition: HOME/ ROUTINE Referrals: Ani Pavon MD [Primary Care Provider] -
[2016-12-11] MEDS ORDERED: Sodium Chloride 0.45% 1,000 ML IV SCH (11:30)
[2016-12-11 11:44] VITALS: TEMP 97.9
[2016-12-11 12:00] VITALS: PULSE 52; RESP 18; O2SAT 96
[2016-12-11 12:14] VITALS: BP 142/57
--- NOTE | 2016-12-11 19:05 | VASCULAR ---
PROCEDURE: Ultrasound and fluoroscopic right internal jugular venous access port. CLINICAL HISTORY: Hemolytic anemia. Requires IV infusions and frequent transfusions. Limited IV access. Needs port. PHYSICIAN(S): Mushtaq Michaels M.D. TECHNIQUE: The relative risks and indications of the procedure were explained to the patient and his daughter and consent obtained. The patient was placed supine on the arteriogram table and the right neck and chest prepped and draped in the usual sterile fashion. Conscious sedation monitoring was provided throughout the procedure by a nurse. Antibiotics were given prior to the procedure. Under direct ultrasound guidance, the right internal jugular vein was punctured with a micro-puncture set. A 0.035 angled Glidewire was advanced into the IVC. A 4 cm incision was made below the right clavicle and the pocket blunted dissected. A 8 [place] single-lumen catheter, 23 cm long, was advanced to the SVC/RA junction. The catheter was trimmed and attached to the port. The port aspirates and injects easily. The port was placed in the pocket and closed in 2 layers. The patient tolerated the procedure well. IMPRESSION: Ultrasound and fluoroscopically placed right internal jugular venous access port.
== END 2016-12-11 14:00 | disposition home or self-care (01) ==
LOC: SDS 08:16
PROVIDERS: ATTEND Radiology Vascular & Interventional Radiology
DX: D59.1 Other autoimmune hemolytic anemias (principal); D72.829 Elevated white blood cell count, unspecified; I11.0 Hypertensive heart disease with heart failure; I50.9 Heart failure, unspecified; J44.9 Chronic obstructive pulmonary disease, unspecified; F17.200 Nicotine dependence, unspecified, uncomplicated; I25.10 Atherosclerotic heart disease of native coronary artery without angina pectoris; N28.1 Cyst of kidney, acquired; N40.0 Benign prostatic hyperplasia without lower urinary tract symptoms
CPT/HCPCS: 36415; 36561; 76937; 77001; 80048; 85025; 85610; 85730; 99152; C1769; C1788; J0690; J1644; J2250; J2405; J3010; J7030

== ENCOUNTER 2017-01-07 11:27 | Inpatient (IN) | payer MEDICARE, BC ==
[2017-01-07 11:28] VITALS: BMI 27.1
--- NOTE | 2017-01-07 12:01 | ED PDOC ---
Arrival/HPI - General Chief Complaint: Shortness Of Breath Time Seen by Provider: 01/07/17 11:31 Historian: Patient - History of Present Illness Narrative History of Present Illness (Text): 01/07/17 11:47 A 86 year old male, whose past medical history includes COPD, CAD with stents, CABG, and hemoylotic aniema, presents to the emergency department complaining of intermittent left sided flank pain for 1 week. Patient denies any radiating pain or relieving/exacerbating factors. Daughter reports nausea, decrease in appetite and chronic shortness of breath. Patient notes constipation but denies any fever, chills, vomiting, urinary symptoms, chest pain or any other complaints. Daughter reports that patient has become more aggressive and disoriented at home and he cannot safely live at home with his . PMD: Librado Time/Duration: 1 week Symptom Onset: Gradual Symptom Course: Intermittent Quality: Other Context: Home Past Medical History - Provider Review Nursing Documentation Reviewed: Yes - Infectious Disease Hx of Infectious Diseases: None - Tetanus Immunization Tetanus Immunization: Unknown - Cardiac Hx Cardiac Disorders: Yes (CAD, ACS, CABG) Other/Comment: cardiac stent - Pulmonary Hx Respiratory Disorders: Yes Hx Chronic Obstructive Pulmonary Disease (COPD): Yes Hx Emphysema: Yes - Neurological Hx Neurological Disorder: Yes Hx Dementia: Yes Hx Paralysis: No - HEENT Hx HEENT Disorder: (WEARS RX GLASSES) - Renal Hx Renal Disorder: No - Endocrine/Metabolic Hx Endocrine Disorders: No - Hematological/Oncological Hx Blood Disorders: Yes (ASBESTOSIS) - Integumentary Other/Comment: cells removed on body as per patient and - Musculoskeletal/Rheumatological Hx Musculoskeletal Disorders: Yes Hx Arthritis: Yes Hx Back Pain: Yes - Gastrointestinal Hx Gastrointestinal Disorders: Yes (GASTRITIS) Hx Diverticulitis: Yes Hx Gall Bladder Disease: Yes Hx Gastroesophageal Reflux: Yes - Genitourinary/Gynecological Hx Genitourinary Disorders: Yes (URINARY FREQUENCY) Hx Prostate Problems: Yes (BPH) Hx Urinary Tract Infection: Yes - Psychiatric Hx Emotional Abuse: No Hx Physical Abuse: No Hx Substance Use: No - Surgical History Hx Open Heart Surgery: Yes - Anesthesia Hx Anesthesia: Yes Hx Anesthesia Reactions: No Hx Malignant Hyperthermia: No - Suicidal Assessment Feels Threatened In Home Enviroment: No Family/Social History - Physician Review Nursing Documentation Reviewed: Yes Family/Social History: No Known Family HX Smoking Status: Former Smoker Hx Alcohol Use: No Hx Substance Use: No Hx Substance Use Treatment: No Allergies/Home Meds Allergies/Adverse Reactions: Allergies No Known Allergies Allergy (Verified 01/07/17 11:29) Home Medications: Home Meds Medication Instructions Recorded Confirmed Tamsulosin [Flomax] 0.4 mg PO DAILY 03/08/13 01/07/17 Clopidogrel [Plavix] 75 mg PO DAILY 05/02/14 01/07/17 Famotidine [Pepcid] 20 mg PO BID 02/22/15 01/07/17 Isosorbide Mononitrate [Imdur] 60 mg PO DAILY 07/12/15 01/07/17 Aspirin [Aspirin Chewable] 81 mg PO DAILY 08/07/15 01/07/17 Metoprolol Tartrate [Lopressor] 100 mg PO BID 08/07/15 01/07/17 Prednisone [Deltasone] 5 mg PO DAILY 08/07/15 01/07/17 ALPRAZolam [Xanax] 0.25 mg PO PRN PRN 12/05/16 01/07/17 QUEtiapine [SEROquel] 25 mg PO HS 01/07/17 01/07/17 traMADol [Ultram] 25 mg PO PRN PRN 01/07/17 01/07/17 Review of Systems - Physician Review All systems were reviewed & negative as marked: Yes - Review of Systems Systems not reviewed;Unavailable: Dementia Constitutional: absent: Fevers, Night Sweats Respiratory: SOB (chronic) Cardiovascular: absent: Chest Pain Gastrointestinal: Constipation, Nausea, Appetite Changes (decrease in appetite) . absent: Vomiting Genitourinary Male: Other (urinary incontinence). absent: Dysuria Musculoskeletal: Back Pain (left sided flank pain) Physical Exam Vital Signs Reviewed: Yes Vital Signs Temp Pulse Resp BP Pulse Ox 01/07/17 14:17 97.7 F 97 H 20 137/70 100 01/07/17 12:13 20 99 01/07/17 11:28 97.6 F 96 H 22 150/69 98 Temperature: Afebrile Blood Pressure: Normal Pulse: Regular Respiratory Rate: Normal Appearance: Positive for: Well-Appearing Pain Distress: None Mental Status: Positive for: other (oriented x self) - Systems Exam Head: Present: Atraumatic, Normocephalic Pupils: Present: PERRL Extroacular Muscles: Present: EOMI Conjunctiva: Present: Normal Mouth: Present: Moist Mucous Membranes Neck: Present: Normal Range of Motion Respiratory/Chest: Present: Clear to Auscultation, Good Air Exchange. No: Respiratory Distress, Accessory Muscle Use Cardiovascular: Present: Regular Rate and Rhythm, Normal S1, S2. No: Murmurs Abdomen: Present: Normal Bowel Sounds. No: Tenderness, Distention, Peritoneal Signs Back: Present: Normal Inspection. No: CVA Tenderness Upper Extremity: Present: Normal Inspection, NORMAL PULSES. No: Cyanosis, Edema Lower Extremity: Present: Normal Inspection, NORMAL PULSES, Other (moving extremities x 4). No: Edema, CALF TENDERNESS Neurological: Present: GCS=15, CN II-XII Intact, Speech Normal Skin: Present: Warm, Dry, Normal Color. No: Rashes Psychiatric: Present: Alert Medical Decision Making ED Course and Treatment: 01/07/17 12:11 Impression: A 86 year old male with left sided flank pain. Daughter notes nausea, decrease in appetite and constipation. Spoke to Dr. ontiveros and he is requesting psych consult due to worsening agitation and dementia at home. Plan: -- CT Abd/pelvis -- CT head -- Chest xray -- EKG -- Labs -- Urinalysis -- Reassess and disposition Prior Visits: Notes and results from previous visits were reviewed. Patient last seen in ED on 12/07/16 for abdominal pain and discharged home. Progress Notes: EKG shows NSR at 94 BPM with PAC's, RBBB, T-wave inversions in leads II-III and V1-V5, unchanged from prior on 12/07/16. Interpreted by me. 01/07/17 11:[address] Pavon, who agrees with plan to get an abdomen and pelvis CT. He requests a psych consult due to worsening episodes of dementia and agitation at home. Report Date : 01/07/2017 13:27:14 PROCEDURE: CT HEAD WITHOUT CONTRAST. Dictator : Mushtaq Richter MD IMPRESSION: No intracranial hemorrhage. Mild age-appropriate atrophy. Nonspecific right mastoid effusion. Report Date : 01/07/2017 13:49:36 PROCEDURE: CT Abdomen and Pelvis with contrast Dictator : Mushtaq Richter MD IMPRESSION: Compression deformity of the T12 vertebra new since 12/07/2016. Questionable very small epidural hemorrhage at this level. Please correlate clinically and consider further evaluation with magnetic resonance imaging. Additional minor findings as above. Report Date : 01/07/2017 14:02:03 Procedure: Chest xray Dictator : Mushtaq Richter MD IMPRESSION: Bilateral calcified pleural plaque. No definite infiltrate. 01/07/17 14:[address] Pavon, made aware of leukocytosis and abnormal CT findings. Patient has hx of leukocytosis with prior negative workup and follows with hematology. Dr. Ontiveros requesting MRI with contrast, Zosyn IV x [address] Walton and Dr. Juju Snyder. Mich cultured. States to admit patient to med-surgery and he will follow up MRI report and further evaluate patient. 01/07/17 14:08 Dr. Ontiveros at bedside. - Lab Interpretations Lab Results: 01/07/17 12:20 01/07/17 12:20 Lab Results 01/07/17 12:30: Urine Opiates Screen Negative, Urine Methadone Screen Negative, Ur Barbiturates Screen Negative, Ur Phencyclidine Scrn Negative, Ur Amphetamines Screen Negative, U Benzodiazepines Scrn Positive H, U Oth Cocaine Metabols Negative, U Cannabinoids Screen Negative 01/07/17 12:30: Urine Color Yellow, Urine Appearance Clear, Urine pH 6.0, Ur Specific Follett >= 1.030, Urine Protein 30 H, Urine Glucose (UA) Negative, Urine Ketones Trace H, Urine Blood Small H, Urine Nitrate Negative, Urine Bilirubin Small H, Urine Urobilinogen 0.2, Ur Leukocyte Esterase Negative, Urine RBC 0 - 2, Urine WBC 0 - 2, Ur Epithelial Cells 0 - 2, Urine Bacteria Mod 01/07/17 12:20: Alcohol, Quantitative < 10 01/07/17 12:20: Sodium 141, Potassium 3.4 L, Chloride 108 H, Carbon Dioxide 20 L , Anion Gap 16, BUN 28 H, Creatinine 1.3, Est GFR ( Amer) > 60, Est GFR ( Non-Af Amer) 52, Random Glucose 92, Calcium 9.1, Phosphorus 2.7, Magnesium 2.0, Total Bilirubin 1.1, AST 45, ALT 29, Alkaline Phosphatase 143 H, Total Protein 7.7, Albumin 3.8, Globulin 3.9, Albumin/Globulin Ratio 1.0 L, Lipase 74 01/07/17 12:20: WBC 64.8 H* D, RBC 3.97, Hgb 13.1 L, Hct 38.4 L, MCV 96.7, MCH 33.0, MCHC 34.1, RDW 15.8 H, Plt Count 264, MPV 10.6, Neutrophils % (Manual) 72 H, Band Neutrophils % 5 H, Lymphocytes % (Manual) 6 L, Monocytes % (Manual) 4, Eosinophils % (Manual) 1, Metamyelocytes % 2, Myelocytes % 9, Promyelocytes % 1 , Platelet Evaluation Normal, Anisocytosis (manual) Slight I have reviewed the lab results: Yes - RAD Interpretation Radiology Orders: 01/07/17 11:46 ABD & PELVIS IV CONTRAST ONLY [CT] Stat 01/07/17 11:47 CHEST PORTABLE [RAD] Stat 01/07/17 12:30 HEAD W/O CONTRAST [CT] Stat 01/07/17 14:02 SPINAL CANAL LUMBAR W/ CONT [MRI] Stat SPINAL CANAL THORACIC W/CONT [MRI] Stat - EKG Interpretation Interpreted by ED Physician: Yes - Medication Orders Current Medication Orders: Discontinued Medications Piperacillin Sod/Tazobactam Sod (Zosyn 3.375 In Ns 100ml) 100 mls @ 200 mls/hr IVPB STAT STA PRN Reason: Protocol Stop: 01/07/17 14:33 Iohexol (Omnipaque 350 100 Ml) Confirm Administered Dose 350 mg .ROUTE .STK-MED ONE Stop: 01/07/17 12:47 - Scribe Statement The provider has reviewed the documentation as recorded by the Stephenie Wright training with Cyndy Rodriguez Provider Scribe Attestation: All medical record entries made by the Scribe were at my direction and personally dictated by me. I have reviewed the chart and agree that the record accurately reflects my personal performance of the history, physical exam, medical decision making, and the department course for this patient. I have also personally directed, reviewed, and agree with the discharge instructions and disposition. Disposition/Present on Arrival - Present on Arrival Any Indicators Present on Arrival: No History of DVT/PE: No History of Uncontrolled Diabetes: No Urinary Catheter: No History of Decub. Ulcer: No History Surgical Site Infection Following: None - Disposition Have Diagnosis and Disposition been Completed?: Yes Diagnosis: Compression fracture, Leukocytosis, Dementia Disposition: HOSPITALIZED Disposition Time: 14:15 Patient Plan: Admission Condition: FAIR
[2017-01-07 12:33] LABS: HEMATOCRIT 38.4 % (42.0-52.0); MEAN CELL VOLUME 96.7 fl (80.0-105.0); MEAN CORPUSCULAR HGB CONC 34.1 g/dl (31.0-37.0); MEAN PLATELET VOLUME 10.6 fl (7.0-11.0); PLATELET COUNT 264 10^3/uL (120.0-450.0); RED CELL DISTRIBUTION WIDTH 15.8 % (11.5-14.5)
[2017-01-07 12:36] LABS: ADD MANUAL DIFF? YES; WHITE BLOOD COUNT 64.8 10^3/ul (4.5-11.0)
[2017-01-07 12:36] LABS: URINE BILIRUBIN SMALL (NEGATIVE); URINE BLOOD SMALL (NEGATIVE); URINE GLUCOSE (UA) NEGATIVE (NEGATIVE); URINE KETONE TRACE mg/dL (NEGATIVE); URINE LEUKOCYTE ESTERASE NEGATIVE Leu/uL (NEGATIVE); URINE PROTEIN 30 mg/dL (<30 mg/dL); URINE UROBILINOGEN 0.2 E.U./dL (<1 E.U./dL)
[2017-01-07 12:39] LABS: URINE APPEARANCE CLEAR (CLEAR); URINE COLOR YELLOW (YELLOW)
[2017-01-07 12:40] LABS: ALKALINE PHOSPHATASE 143 U/L (38-133); ALT/SGPT 29 U/L (7-56); AST/SGOT 45 U/L (15-59); BILIRUBIN,TOTAL 1.1 mg/dL (0.2-1.3); BLOOD UREA NITROGEN 28 mg/dL (7-21); CALCIUM 9.1 mg/dL (8.4-10.5); CARBON DIOXIDE 20 mmol/L (21-33); CHLORIDE 108 mmol/L (98-107); GFR AFRICAN-AMERICAN > 60; GLUCOSE,RANDOM 92 mg/dL (70-110); LIPASE 74 U/L (23-300); PHOSPHOROUS 2.7 mg/dL (2.5-4.5); POTASSIUM 3.4 mmol/L (3.6-5.0); SODIUM 141 mmol/L (132-148); TOTAL PROTEIN 7.7 g/dL (5.8-8.3)
[2017-01-07] MEDS ORDERED: Iohexol 350 MG/100 ML VIAL ONE (12:46)
[2017-01-07 13:00] LABS: URINE BACTERIA MOD (NEG); URINE EPITHELIAL CELLS 0 - 2 /hpf (0-5); URINE RBC 0 - 2 /hpf (0-2); URINE WBC 0 - 2 /hpf (0-6)
[2017-01-07 13:10] LABS: BAND 5 % (0-2); EOSINOPHIL 1 % (0.0-3.0); METAMYELOCYTE 2 %; MYELOCYTE 9 %; NEUTROPHIL 72 % (50.0-70.0); PROMYELOCYTE 1 %
[2017-01-07 13:11] LABS: ANISOCYTOSIS SLIGHT; PLATELET ESTIMATE NORMAL (NORMAL)
--- NOTE | 2017-01-07 13:28 | CT ---
PROCEDURE: CT HEAD WITHOUT CONTRAST. HISTORY: head injury COMPARISON: 08/30/2016 TECHNIQUE: Axial computed tomography images were obtained through the head/brain without intravenous contrast. Radiation dose: Total exam DLP = 1354.91 mGy-cm. This CT exam was performed using one or more of the following dose reduction techniques: Automated exposure control, adjustment of the mA and/or kV according to patient size, and/or use of iterative reconstruction technique. FINDINGS: HEMORRHAGE: No intracranial hemorrhage. BRAIN: No mass effect or edema. Mild diffuse age-appropriate cerebral atrophy. No evidence of acute infarct. VENTRICLES: Unremarkable. No hydrocephalus. CALVARIUM: Unremarkable. PARANASAL SINUSES: Unremarkable as visualized. No significant inflammatory changes. MASTOID AIR CELLS: Nonspecific right mastoid effusion. OTHER FINDINGS: None. IMPRESSION: No intracranial hemorrhage. Mild age-appropriate atrophy. Nonspecific right mastoid effusion.
--- NOTE | 2017-01-07 13:51 | CT ---
PROCEDURE: CT Abdomen and Pelvis with contrast HISTORY: L sided abdominal pain COMPARISON: 12/07/2016 TECHNIQUE: Contrast dose: 100 mL Omnipaque 350 Radiation dose: Total exam DLP = 886.85 mGy-cm. This CT exam was performed using one or more of the following dose reduction techniques: Automated exposure control, adjustment of the mA and/or kV according to patient size, and/or use of iterative reconstruction technique. 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 Nonspecific ill-defined opacity posterior right lower lobe, unchanged from prior. LIVER: Unremarkable. No gross lesion or ductal dilatation. GALLBLADDER AND BILE DUCTS: Status post cholecystectomy PANCREAS: Unremarkable. No gross lesion or ductal dilatation. SPLEEN: Unremarkable. ADRENALS: Unremarkable. No mass. KIDNEYS AND URETERS: Right lower pole renal cortical cyst, 2.6 cm diameter. This measures between 14 and 24 Hounsfield units. Possibly some post hemorrhagic or proteinaceous content. No other renal mass. No renal calculus or hydronephrosis. VASCULATURE: Unremarkable. No aortic aneurysm. BOWEL: Very small hiatal hernia. No bowel obstruction. Sigmoid diverticulosis without evidence of diverticulitis. No other abnormal bowel loops are identified. APPENDIX: Normal appendix. PERITONEUM: Unremarkable. No free fluid. No free air. LYMPH NODES: Unremarkable. No enlarged lymph nodes. Compression deformity of T12 vertebra new since 12/07/2016. Questionable very small epidural hematoma. Consider evaluation with magnetic resonance imaging. Minimal bony retropulsion without resulting spinal stenosis. BLADDER: Unremarkable. REPRODUCTIVE: Unremarkable prostate BONES: Compression deformity of the T12 vertebra, indeterminate age but new since 12/07/2016. Likely acute or subacute. Minimal bony retropulsion without karina spinal stenosis. Questionable small epidural hemorrhage. Consider evaluation with MRI if clinically appropriate. No other fracture. Extensive multilevel degenerative disc disease. OTHER FINDINGS: None. IMPRESSION: Compression deformity of the T12 vertebra new since 12/07/2016. Questionable very small epidural hemorrhage at this level. Please correlate clinically and consider further evaluation with magnetic resonance imaging. Additional minor findings as above.
[2017-01-07] MEDS ORDERED: Piperacillin/Tazobact 3.375 gm 100 ML IVPB STA (14:04)
--- NOTE | 2017-01-07 14:04 | RAD ---
HISTORY: psych COMPARISON: 08/30/2016 FINDINGS: LUNGS: No definite infiltrate. Opacity at the lung bases may be obscured by calcified pleural plaques. There is extensive bilateral calcified pleural plaque. PLEURA: No pleural effusion or pneumothorax is evident. CARDIOVASCULAR: Sternotomy wires. Right central venous infusion port. OSSEOUS STRUCTURES: No significant abnormalities. VISUALIZED UPPER ABDOMEN: Normal. OTHER FINDINGS: None. IMPRESSION: Bilateral calcified pleural plaque. No definite infiltrate.
[2017-01-07] MEDS ORDERED: Potassium Chloride 20 mEq ER Tab PO STA (15:12)
--- NOTE | 2017-01-07 16:23 | CARD ---
APPROVED REPORT EKG Measurement Heart [id number] CT 140P40 [id number] <Conclusion> Sinus rhythm with premature atrial complexes Possible Left atrial enlargement Incomplete right bundle branch block ST & T wave abnormality, consider anterolateral ischemia Prolonged QT Abnormal ECG
[2017-01-07] MEDS ORDERED: Non Formulary Medication (Metoprolol Tartrate [Lopressor] 100 MG) PO SCH (18:00)
[2017-01-07] MEDS ORDERED: Pneumococcal 23-Valent Vaccine IM ONE (19:08)
--- NOTE | 2017-01-08 04:06 | HP ---
HISTORY OF PRESENT ILLNESS: The patient is seen in the emergency room. The patient was brought in by the family. He complained of intractable pain in his left lower abdomen and groin area. The patient states he has unbearable pain and this has been going on for 3 weeks. The patient has been treated in the office in the last few days with Toradol. The patient was also given nonsteroidal antiinflammatory drug for the pain. The patient had some localized tenderness in the sacroiliac joint area on the left side. He also has lost his appetite recently, and he is not able to eat as well and he does not sleep because of the pain. According to the , he has not slept for 4 days. PAST MEDICAL HISTORY: The patient has significant past history, he is being treated for atherosclerotic heart disease. He has had multiple angioplasties. The patient has history of chronic obstructive lung disease with asbestosis. The patient has a history of prostatic hyperplasia, peptic ulcer disease, gastritis, chronic constipation, and altered mental state. The patient has a history of ongoing treatment for hypertension and chronic obstructive lung disease. MEDICATIONS: The patient's medication list consists of tramadol 25 mg p.r.n. q.6 hours. The patient is on Seroquel 25 mg at bedtime for sleep and agitation. The patient is on Flomax 0.4 mg daily, prednisone 5 mg, which is given daily, and metoprolol 100 mg b.i.d. The patient takes isosorbide mononitrate 60 mg daily, Pepcid 20 mg daily, Plavix 75 mg daily, aspirin 81 mg daily, and Xanax 0.25 mg p.r.n. for anxiety. PHYSICAL EXAMINATION: GENERAL: The patient is seen, he is agitated, and wants to go home, but I advised him that he has to stay and needs further investigation regarding his medical condition. VITAL SIGNS: Pulse is 97, temperature is 97.7, the patient's blood pressure is 137/70, and O2 saturation 100% on room air. SKIN: On examination, the patient has evidence of multiple skin lesions that is mostly keratotic and also a few of them have been excised; they were basal cell carcinoma. The patient has sparse amount of hair on the scalp. He has multiple skin lesions as mentioned on the face and arms. NECK: Thyroid is not clinically enlarged. Carotid pulses are present bilaterally. HEART: Normal sinus rhythm. S1 and S2 present. No murmurs. ABDOMEN: Soft. Liver and spleen not palpable. No tenderness. LUNGS: Trachea is central. Breath sounds are vesicular. Bilateral crepitations and rhonchi heard. CENTRAL NERVOUS SYSTEM: He is conscious and confused somewhat. He does have history of altered mental state and mild dementia, and the patient is also being treated for coronary artery disease. LABORATORY DATA: The patient's blood work done, shows white count of 64,800. His differential shows 72% neutrophils and 6% lymphocytes. The patient's platelet count is 264,000 at this time. The patient has a history of thrombocytopenia. The patient has been treated with medication by Dr. Walton, he is an oncologist, for his thrombocytopenia and the patient has had elevation of white blood cell count up to 20,000 possibly due to pseudoleukemic feature, but the current blood count of 64,000 white cells is abnormal and may be precipitated by infection. The patient is going to be started on antibiotics. Infectious disease consult is going to be called in. The patient has x-ray of the abdomen and pelvis that shows evidence of fracture at T12; this could be something that is recent, but that cannot be predicted. The patient might have neuritis associated with his injury to the vertebra. The patient is pending MRI to rule out an abscess or hematoma in the spine, which is hinted by CAT scan. IMPRESSION AND PLAN: The patient is going to be admitted and treated in the hospital. We will call in psychiatrist for behavioral management and request the director geophysical laboratory Dr. Guan to see the patient; Dr. Walton, the oncologist to see the patient; Dr. Burger, managing consultant clinical professor in the infectious disease will see the patient. The patient also will be seen by Dr. Shah, he is a revenue collector and has seen the patient in the past. The patient's overall prognosis is guarded. His condition is at this time stable with altered mental state. David Pavon MD [facility]
[2017-01-08 07:46] LABS: HEMATOCRIT 41.4 % (42.0-52.0); MEAN CELL VOLUME 98.1 fl (80.0-105.0); MEAN CORPUSCULAR HEMOGLOBIN 33.4 pg (25.0-35.0); MEAN CORPUSCULAR HGB CONC 34.1 g/dl (31.0-37.0); MEAN PLATELET VOLUME 10.9 fl (7.0-11.0); PLATELET COUNT 246 10^3/uL (120.0-450.0)
--- NOTE | 2017-01-08 07:52 | CP.PCM.PN ---
Subjective - Date & Time of Evaluation Date of Evaluation: 01/08/17 Time of Evaluation: 07:30 - Subjective Subjective: Patient is seen this morning. His pain is improved from yesterday. Objective - Vital Signs/Intake and Output Vital Signs (last 24 hours): Temp Pulse Resp BP Pulse Ox 97.7 F 97 H 20 137/70 98 01/07/17 18:38 01/07/17 18:38 01/07/17 18:38 01/07/17 18:38 01/07/17 16:00 Intake and Output: 01/08/17 01/08/17 06:59 18:59 Intake Total 300 Balance 300 - Medications Medications: Current Medications Alprazolam (Xanax) 0.25 mg PO TID PRN; Protocol PRN Reason: Anxiety Stop: 01/14/17 18:01 Last Admin: 01/08/17 03:24 Dose: 0.25 mg Famotidine (Pepcid) 20 mg PO BID [facility] Last Admin: 01/07/17 17:12 Dose: 20 mg Isosorbide Mononitrate (Imdur) 60 mg PO DAILY [facility] Metoprolol Tartrate (Lopressor) 100 mg PO BRKDIN [facility] Last Admin: 01/07/17 17:12 Dose: 100 mg Prednisone (Prednisone Tab) 5 mg PO DAILY [facility] Quetiapine Fumarate (Seroquel) 25 mg PO HS [facility] PRN Reason: Protocol Last Admin: 01/07/17 21:52 Dose: 25 mg Tamsulosin HCl (Flomax) 0.4 mg PO DAILY [facility] Tramadol HCl (Ultram) 25 mg PO BID PRN PRN Reason: Pain, moderate (4-7) Last Admin: 01/08/17 03:25 Dose: 25 mg - Constitutional Appears: No Acute Distress - Head Exam Head Exam: ATRAUMATIC, NORMOCEPHALIC - Respiratory Exam Respiratory Exam: Decreased Breath Sounds, NORMAL BREATHING PATTERN - Cardiovascular Exam Cardiovascular Exam: +S1, +S2 - GI/Abdominal Exam GI & Abdominal Exam: Soft, Normal Bowel Sounds. absent: Tenderness - Extremities Exam Extremities Exam: Normal Inspection - Neurological Exam Neurological Exam: Alert, Awake Assessment and Plan - Assessment and Plan (Free Text) Assessment: Back pain Compression fracture T12 Questionable epidural hematoma HTN CAD mild dementia leukocytosis r/o psuedo leukemoid reaction Plan: Patient is seen this morning. Back pain is improving. Will consult orthopedics for back pain. CT abd and pelvis showed T12 compression fracture and questionable epidural hematoma We will hold ASA and Plavix until MRI is done. Patient to get Valium 5 mg prior to MRI. Consult cardiology for CAD and pulmonary for chronic lung disease with asbestosis.
[2017-01-08 08:01] LABS: BLOOD UREA NITROGEN 27 mg/dL (7-21); CALCIUM 8.9 mg/dL (8.4-10.5); CARBON DIOXIDE 18 mmol/L (21-33); CHLORIDE 109 mmol/L (98-107); GFR AFRICAN-AMERICAN > 60; GLUCOSE,RANDOM 76 mg/dL (70-110); POTASSIUM 3.9 mmol/L (3.6-5.0); SODIUM 141 mmol/L (132-148)
[2017-01-08 08:02] LABS: ADD MANUAL DIFF? YES; WHITE BLOOD COUNT 67.9 10^3/ul (4.5-11.0)
[2017-01-08 08:55] LABS: BAND 7 % (0-2); METAMYELOCYTE 6 %; NEUTROPHIL 65 % (50.0-70.0); PROMYELOCYTE 2 %
[2017-01-08 08:56] LABS: PLATELET ESTIMATE NORMAL (NORMAL)
--- NOTE | 2017-01-08 11:30 | CON ---
DATE: 01/08/2017 ROOM: 362, bed 1. The patient was admitted to hospital last night with severe back pain, unable to walk. X-rays were just in as an abdominal CAT scan which showed osteoarthritis of the lumbar spine with acute on chronic compression fracture of T12, but no evidence of obliteration of the canal. I have suggested an MRI if the pain continues and he is unable to walk because of pain, so we will get a MRI scan to investigate the pain in his back and the weakness. FINAL DIAGNOSIS: Compression fracture of T12 to investigate it with MRI of his lumbar spine and we will still do therapy. Malik Vo DO
[2017-01-08] MEDS ORDERED: diaZEpam 10 mg/2 ml Inj IVP ONE (11:43)
[2017-01-08] MEDS ORDERED: Morphine 2 mg/ml ISec IVP STA (13:19)
--- NOTE | 2017-01-08 14:23 | MRI ---
PROCEDURE: MR LUMBAR SPINE WITHOUT CONTRAST HISTORY: t12 deformity COMPARISON: CT scan 01/07/2017 TECHNIQUE: Multiecho multiplanar sequences were performed through the lumbar spine without the use of intravenous contrast. FINDINGS: Normal lumbar lordosis. As seen on the CT scan there is a severe compression deformity of T12. On CT there is some air within the vertebral body. On MRI there is some fluid and edema. The fractures recent and was not present on the study dated 12/07/2016. Conus medullaris unremarkable at the level of T12 Paraspinal soft tissues are unremarkable. T12-L1: No disc herniation, spinal canal stenosis or neural foraminal narrowing. L1-2: No disc herniation, spinal canal stenosis or neural foraminal narrowing. L2-3: There is a moderate disc bulge without stenosis L3-4: Moderate disc bulge and loss of disc height. L4-5: Loss of disc height. Moderate disc bulge L5-S1: Loss of disc height and mild disc bulge. Degenerative changes in the vertebral endplates OTHER FINDINGS: None. IMPRESSION: Recent compression fracture T12 with marrow edema anteriorly. See comment
--- NOTE | 2017-01-08 16:00 | CP.PCM.CON ---
History of Present Illness - History of Present Illness History of Present Illness: Heme/onc consult note for Dr Walton: 86 M with pmh of hemolytic anemia, CAD, COPD, CABG, hx of diverticulitis, gastritis, GERD, BPPH, Asbestosis, presents to the ED with cough and L sided back pain. Pt states that this symptoms started a few weeks ago. Now he has a productive cough bringing up yellow phlegm. He also states that his cough exacerbates his L back pain and it became intolerable, 10/10 in severity, which he came to the ED. He denies any any other complaints. Pt was seen before by Dr Walton in july 2016, he has hemolytic anemia and was consulted for persistent leukocytosis to r/o any underlying disease. Than pt wbc was aprox 0k-30. Than flow cytometry was done and was negative. Pt on prednisone therapy for Félix + hemolytic anemia. PMH: as above PSH: CABG aprox 4 years ago Med: refer to [facility] FH: denies ALL: NKA Review of Systems - Review of Systems All systems: reviewed and no additional remarkable complaints except (HPI) Past Patient History - Infectious Disease Hx of Infectious Diseases: None - Tetanus Immunizations Tetanus Immunization: Unknown - Past Medical History & Family History Past Medical History?: Yes - Past Social History Smoking Status: Former Smoker - CARDIAC Hx Cardiac Disorders: Yes (CAD, ACS, CABG 3 vessels, mi age 61o or 71) Hx Angina: Yes Hx Congestive Heart Failure: Yes Hx Hypercholesterolemia: Yes Hx Hypertension: Yes Other/Comment: cardiac stent, multiple angioplasties, multiple ptca/stent 8 or 9 - PULMONARY Hx Respiratory Disorders: Yes (asbestosis) Hx Chronic Obstructive Pulmonary Disease (COPD): Yes Hx Emphysema: Yes Hx Pneumonia: Yes - NEUROLOGICAL Hx Neurological Disorder: Yes Hx Dementia: Yes - HEENT Hx HEENT Problems: (WEARS RX GLASSES, [place]) - RENAL Hx Chronic Kidney Disease: No - ENDOCRINE/METABOLIC Hx Endocrine Disorders: No - HEMATOLOGICAL/ONCOLOGICAL Hx Blood Disorders: Yes (blood transfusion) Hx Anemia: Yes (hemolytic anemia) - INTEGUMENTARY Other/Comment: cells removed on body as per patient and , multiple skin, discolorations, nodules and dry patches of skin to arms and legs, multiple tatoos - MUSCULOSKELETAL/RHEUMATOLOGICAL Hx Musculoskeletal Disorders: Yes (t12 compression fx) Hx Arthritis: Yes Hx Back Pain: Yes Hx Falls: Yes (past) Hx Unsteady Gait: Yes - GASTROINTESTINAL Hx Gastrointestinal Disorders: Yes (GASTRITIS) Hx Diverticulitis: Yes Hx Gall Bladder Disease: Yes Hx Gastroesophageal Reflux: Yes - GENITOURINARY/GYNECOLOGICAL Hx Genitourinary Disorders: Yes (URINARY FREQUENCY) Hx Prostate Problems: Yes (BPH) Hx Urinary Tract Infection: Yes - PSYCHIATRIC Hx Anxiety: Yes Hx Emotional Abuse: No Hx Physical Abuse: No Hx Substance Use: No Other/Comment: pt becoming more agresive and disoriented at home - SURGICAL HISTORY Hx Cholecystectomy: Yes Hx Coronary Stent: Yes Hx Open Heart Surgery: Yes (3 vessel) Other/Comment: excision r hand lesion 07/2016, scalp lesion, 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, pt a hard stick - ANESTHESIA Hx Anesthesia: Yes Hx Anesthesia Reactions: No Hx Malignant Hyperthermia: No Meds Allergies/Adverse Reactions: Allergies Allergy/AdvReac Type Severity Reaction Status Date / Time No Known Allergies Allergy Verified 01/07/17 11:29 - Medications Medications: Current Medications Alprazolam (Xanax) 0.25 mg PO TID PRN; Protocol PRN Reason: Anxiety Stop: 01/14/17 18:01 Last Admin: 01/08/17 03:24 Dose: 0.25 mg Famotidine (Pepcid) 20 mg PO BID [facility] Last Admin: 01/08/17 09:13 Dose: 20 mg Isosorbide Mononitrate (Imdur) 60 mg PO DAILY [facility] Last Admin: 01/08/17 09:13 Dose: 60 mg Metoprolol Tartrate (Lopressor) 100 mg PO BRKDIN [facility] Last Admin: 01/08/17 09:13 Dose: 100 mg Prednisone (Prednisone Tab) 5 mg PO DAILY [facility] Last Admin: 01/08/17 09:13 Dose: 5 mg Quetiapine Fumarate (Seroquel) 25 mg PO [facility] PRN Reason: Protocol Last Admin: 01/07/17 21:52 Dose: 25 mg Tamsulosin HCl (Flomax) 0.4 mg PO DAILY [facility] Last Admin: 01/08/17 09:13 Dose: 0.4 mg Tramadol HCl (Ultram) 25 mg PO BID PRN PRN Reason: Pain, moderate (4-7) Last Admin: 01/08/17 13:10 Dose: 25 mg Ziprasidone (Geodon Inj) 10 mg IM Q12 PRN; Protocol PRN Reason: severe agitation Physical Exam - Constitutional Appears: No Acute Distress - Head Exam Head Exam: ATRAUMATIC, NORMAL INSPECTION, NORMOCEPHALIC - Eye Exam Eye Exam: EOMI, Normal appearance, PERRL Pupil Exam: NORMAL ACCOMODATION, PERRL - ENT Exam ENT Exam: Mucous Membranes Moist, Normal Exam - Neck Exam Neck exam: Positive for: Normal Inspection - Respiratory Exam Respiratory Exam: Clear to Auscultation Bilateral, NORMAL BREATHING PATTERN. absent: Wheezes - Cardiovascular Exam Cardiovascular Exam: REGULAR RHYTHM, RRR, +S1, +S2 - GI/Abdominal Exam GI & Abdominal Exam: Normal Bowel Sounds, Soft. absent: Tenderness - Extremities Exam Extremities exam: Negative for: calf tenderness, pedal edema - Back Exam Additional comments: L sided paraspinal tenderness - Neurological Exam Neurological exam: Alert, Oriented x3, Reflexes Normal - Psychiatric Exam Psychiatric exam: Normal Affect, Normal Mood - Skin Skin Exam: Dry, Warm Results - Vital Signs Recent Vital Signs: Last Vital Signs Temp 98.3 F 01/08/17 08:12 Pulse 94 H 01/08/17 09:13 Resp 21 01/08/17 08:12 BP 165/83 H 01/08/17 09:13 Pulse Ox 98 01/08/17 08:12 - Labs Result Diagrams: 01/08/17 07:00 01/08/17 07:00 Labs: Laboratory Results - last 24 hr 01/08/17 01/08/17 07:00 07:00 WBC 67.9 H* RBC 4.22 Hgb 14.1 Hct 41.4 L MCV 98.1 MCH 33.4 MCHC 34.1 RDW 16.0 H Plt Count 246 MPV 10.9 Neutrophils % (Manual) 65 Band Neutrophils % 7 H Lymphocytes % (Manual) 6 L Monocytes % (Manual) 14 H Metamyelocytes % 6 Promyelocytes % 2 Platelet Evaluation Normal Sodium 141 Potassium 3.9 Chloride 109 H Carbon Dioxide 18 L Anion Gap 18 BUN 27 H Creatinine 1.3 Est GFR ( Amer) > 60 Est GFR (Non-Af Amer) 52 Random Glucose 76 Calcium 8.9 Assessment & Plan - Assessment and Plan (Free Text) Assessment: 86 M with pmh of hemolytic anemia, CAD, COPD, CABG, hx of diverticulitis, gastritis, GERD, BPPH, Asbestosis, presents to the ED with cough and L sided back pain. Pt found to have T12 compression fracture. Pt has Félix positive, hemolytic anemia on prednisone now with a leukocytosis of 67.9. Leukocytosis: leukomoid rxn vs sepsis vs infection - medical management as per primary - Ordered flow cytometry of the blood will follow up - F/u MRI of the thoracic spine - CT abdomen showed new compression deformity of T12 and small epidural hemorrhage at this level. rec MRI - Head CT negative - CXR- b/l calcified pleural plaques - Cont Prednisone 5mg daily - F/u ID recs - Daily labs Case and plan was reviewed with Dr Walton
[2017-01-08] MEDS: Vancomycin 1gm in NS 250ml 1 GM/250 ML BAG IVPB SCH (21:26)
--- NOTE | 2017-01-09 04:22 | CON ---
DATE: 01/08/2017 HISTORY OF PRESENT ILLNESS: The patient is an 86-year-old male with multiple medical issues including COPD, coronary artery disease with stents, CABG, hemolytic anemia, and history of dementia, which seems to be worsened recently. The patient was admitted on the medical side for evaluation of flank pain for one week. Psychiatric consult was called for evaluation of mood symptoms as well as worsening of dementia. Also as per report, the patient was more aggressive and disoriented at home. The patient was seen and examined. This scientific technical writer is very familiar with this patient from the previous admission on the medical side. This scientific technical writer was clinical documentation consultant on the case. The patient presented to be sleepy, but easily arousable. The patient does not know where he is. The patient said that he is supposed to have surgery. The patient does not know why he is the hospital, but when this scientific technical writer explained that he had pain and that is why he came to the hospital, the patient said "that's right, it could be, but right now I'm pain free." The patient reported that he is doing fine. The patient denied being depressed. The patient denied thoughts of harming himself or others. Denied intent or plan, but at this time, the patient has forgetfulness and confabulation. The patient denied hearing voices. When he was asked does he hear any voices, the patient said "I cannot hear well." As per nursing report, the patient does not have any behavioral issues. At times, forgetful and confabulates, but besides that there is no behavioral incident. As per report, the patient was restless. MEDICATIONS: Reviewed. The patient is on Xanax 0.25 mg 3 times a day as needed, Imdur, Lopressor, prednisone, Seroquel 25 mg as the nighttime schedule started by medical team. The patient is on Flomax, Ultram, as well as this scientific technical writer will start Geodon in case of severe agitation. PHYSICAL EXAMINATION: VITAL SIGNS: Stable. Temperature 98.1, pulse 85, blood pressure 124/74, respirations 20, and saturation 96%. MENTAL STATUS EXAMINATION: The patient presented to be alert. The patient does not know where he is. Intermittent eye contact. Speech, he has no answers. Mood described "I think I'm fine." Affect was reactive and mood congruent. Thought process seems to be confabulations and circumstantial and tangential. Thought content, the patient was not able to comprehend visual, auditory or tactile hallucinations and the patient does not present to be psychotic, but confused. The patient denied thoughts of harming himself or others. Insight and judgment are impaired. Impulses are not predictable. LABORATORY DATA: Reviewed. WBC is also elevated 67.9, today hemoglobin 14.1, and hematocrit 41.4. Chemistry reviewed. Urinalysis reviewed. Toxicology was positive for benzodiazepines. Reports reviewed. The patient had lumbar spine MRI. The patient had some compression deformity. The patient was seen by Dr. Vo, as well as notes from Dr. Juarez reviewed. IMPRESSION: Delirium and dementia. Seems to be worsening of dementia. The patient has multiple medical issues. Please see medical team notes for more details and information. PLAN: Medications reviewed. The patient is on Seroquel 25 mg at the nighttime started by medical team and I am fine with that. The patient is on Xanax, continue that. In case of severe agitation, Geodon 10 mg q.8 hours as needed for severe agitation. The patient does not need to be on one-to-one. This scientific technical writer cannot exclude if the patient will be doing better, the patient's mental status will improve. Social work evaluation. We will follow up and advice accordingly. Thank you very much letting me to participate in care of your patient. Should you have any questions give me a call back. Juju Boyle MD
[2017-01-09 07:19] LABS: HEMATOCRIT 38.9 % (42.0-52.0); MEAN CELL VOLUME 97.3 fl (80.0-105.0); MEAN CORPUSCULAR HGB CONC 33.9 g/dl (31.0-37.0); MEAN PLATELET VOLUME 10.6 fl (7.0-11.0); PLATELET COUNT 248 10^3/uL (120.0-450.0); RED CELL DISTRIBUTION WIDTH 16.1 % (11.5-14.5)
[2017-01-09 07:26] LABS: ADD MANUAL DIFF? YES; WHITE BLOOD COUNT 66.2 10^3/ul (4.5-11.0)
[2017-01-09 07:31] LABS: ALKALINE PHOSPHATASE 138 U/L (38-133); ALT/SGPT 29 U/L (7-56); AST/SGOT 29 U/L (15-59); BILIRUBIN,TOTAL 0.7 mg/dL (0.2-1.3); BLOOD UREA NITROGEN 29 mg/dL (7-21); CALCIUM 8.7 mg/dL (8.4-10.5); CARBON DIOXIDE 19 mmol/L (21-33); CHLORIDE 109 mmol/L (95-110); GFR AFRICAN-AMERICAN > 60; GLUCOSE,RANDOM 91 mg/dL (70-110); SODIUM 139 mmol/L (132-148); TOTAL PROTEIN 7.4 g/dL (5.8-8.3)
--- NOTE | 2017-01-09 07:48 | CP.PCM.CON ---
<GarretDeena - Last Filed: 01/09/17 09:09> History of Present Illness - History of Present Illness History of Present Illness: PGY-[address] Rivers ID consult: gram + cocci in blood, 1/2 bottle, port-a-cath Mr Maddox (362-1) 86 M with PMH of Hx jannette + hemolytic anemia on prednisone, chronic leukocytoisi, t12 compression fx, Asbestosis, COPD, CABG, gastritis, BPH, presents to the ED with cough and L sided back pain. Pt states that this symptoms started a few weeks ago. The cough was productive with yellow phlegm. He also states that his cough exacerbates his L back pain and it became intolerable, 10/10 in severity, which he came to the ED. Pt complaints of fever 1 week ago by the pool and still feel chills today. ED arrival VSS WBC 84.8 (baseline 20-40), Hb 13, plt normal with 5-7% band BUN 1.3 (baseline creatinine = 1, GFR > 60) Alk phos 147 LFT, Lipase normal U/A negative for UTI Blood culure 01/08/16 gram pos cocci in 1 of 2 bottles Pt was started vanco x 1 day 1 of 2 blood culture grew gram pos cocci, questionable drawn frm peripheral or port Abd/pel CT showed acute compression fracture of T12 and lumbar osteoarthritis. MRI confirmed T12 compression fractue with marrow edema anteriorly CXR - b/k calcified pleural plaque Head CT - Non-specific R mastoid effusion. No intracranial hemorrg=fracisco ROS - (+) mid back pain, (+) chills denies B&B incontinence, Denies FRIEND, CP, SOB, n/v/d/c, dysuria PMH: CABG for 3 vessels CAD, multiple ptca/stent 8 or 9 Asbestosis, COPD, Hx jannette + hemolytic anemia on prednisone chronic leukocytoisi (flow cytometry negative) hx of diverticulitis, gastritis, GERD BPH with urinary frequency Hx t12 compression fx PSH: CABG aprox 4 years ago excision r hand lesion 07/2016 scalp lesion rcw port-a-cath 11/2016 for bloodwook, pt a hard stick FH: denies All: NKDA Med: Xanax, Pepcid ASA, plavix, Imdur, lopressor, Prednisone 5 mg daily Quetiapine Flomax Tramadol PRN PMD: Dr. Pavon Past Patient History - Infectious Disease Hx of Infectious Diseases: None - Tetanus Immunizations Tetanus Immunization: Unknown - Past Medical History & Family History Past Medical History?: Yes - Past Social History Smoking Status: Former Smoker - CARDIAC Hx Cardiac Disorders: Yes (CAD, ACS, CABG 3 vessels, mi age 61o or 71) Hx Angina: Yes Hx Congestive Heart Failure: Yes Hx Hypercholesterolemia: Yes Hx Hypertension: Yes Other/Comment: cardiac stent, multiple angioplasties, multiple ptca/stent 8 or 9 - PULMONARY Hx Respiratory Disorders: Yes (asbestosis) Hx Chronic Obstructive Pulmonary Disease (COPD): Yes Hx Emphysema: Yes Hx Pneumonia: Yes - NEUROLOGICAL Hx Neurological Disorder: Yes Hx Dementia: Yes - HEENT Hx HEENT Problems: (WEARS RX GLASSES, [place]) - RENAL Hx Chronic Kidney Disease: No - ENDOCRINE/METABOLIC Hx Endocrine Disorders: No - HEMATOLOGICAL/ONCOLOGICAL Hx Blood Disorders: Yes (blood transfusion) Hx Anemia: Yes (hemolytic anemia) - INTEGUMENTARY Other/Comment: cells removed on body as per patient and , multiple skin, discolorations, nodules and dry patches of skin to arms and legs, multiple tatoos - MUSCULOSKELETAL/RHEUMATOLOGICAL Hx Musculoskeletal Disorders: Yes (t12 compression fx) Hx Arthritis: Yes Hx Back Pain: Yes Hx Falls: Yes (past) Hx Unsteady Gait: Yes - GASTROINTESTINAL Hx Gastrointestinal Disorders: Yes (GASTRITIS) Hx Diverticulitis: Yes Hx Gall Bladder Disease: Yes Hx Gastroesophageal Reflux: Yes - GENITOURINARY/GYNECOLOGICAL Hx Genitourinary Disorders: Yes (URINARY FREQUENCY) Hx Prostate Problems: Yes (BPH) Hx Urinary Tract Infection: Yes - PSYCHIATRIC Hx Anxiety: Yes Hx Emotional Abuse: No Hx Physical Abuse: No Hx Substance Use: No Other/Comment: pt becoming more agresive and disoriented at home - SURGICAL HISTORY Hx Cholecystectomy: Yes Hx Coronary Stent: Yes Hx Open Heart Surgery: Yes (3 vessel) Other/Comment: excision r hand lesion 07/2016, scalp lesion, 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, pt a hard stick - ANESTHESIA Hx Anesthesia: Yes Hx Anesthesia Reactions: No Hx Malignant Hyperthermia: No Meds Allergies/Adverse Reactions: Allergies Allergy/AdvReac Type Severity Reaction Status Date / Time No Known Allergies Allergy Verified 01/07/17 11:29 - Medications Medications: Current Medications Alprazolam (Xanax) 0.25 mg PO TID PRN; Protocol PRN Reason: Anxiety Stop: 01/14/17 18:01 Last Admin: 01/08/17 18:54 Dose: 0.25 mg Famotidine (Pepcid) 20 mg PO BID [facility] Last Admin: 01/08/17 18:07 Dose: 20 mg Vancomycin HCl (Vancomycin 1gm) 1 gm in 250 mls @ 167 mls/hr IVPB Q12H [facility] PRN Reason: Protocol Last Admin: 01/08/17 21:26 Dose: 167 mls/hr Isosorbide Mononitrate (Imdur) 60 mg PO DAILY [facility] Last Admin: 01/08/17 09:13 Dose: 60 mg Levalbuterol HCl (Xopenex) 0.63 mg IH [id number] YESSI Levalbuterol HCl (Xopenex) 0.63 mg IH Q2 PRN PRN Reason: Shortness of Breath Metoprolol Tartrate (Lopressor) 100 mg PO BRKDIN [facility] Last Admin: 01/08/17 18:06 Dose: 100 mg Prednisone (Prednisone Tab) 5 mg PO DAILY [facility] Last Admin: 01/08/17 09:13 Dose: 5 mg Quetiapine Fumarate (Seroquel) 25 mg PO HS [facility] PRN Reason: Protocol Last Admin: 01/08/17 21:25 Dose: 25 mg Tamsulosin HCl (Flomax) 0.4 mg PO DAILY [facility] Last Admin: 01/08/17 09:13 Dose: 0.4 mg Tramadol HCl (Ultram) 25 mg PO BID PRN PRN Reason: Pain, moderate (4-7) Last Admin: 01/08/17 18:06 Dose: 25 mg Ziprasidone (Geodon Inj) 10 mg IM Q12 PRN; Protocol PRN Reason: severe agitation Physical Exam - Constitutional Appears: No Acute Distress - Head Exam Head Exam: ATRAUMATIC, NORMAL INSPECTION, NORMOCEPHALIC - Eye Exam Eye Exam: EOMI, Normal appearance, PERRL. absent: Scleral icterus Pupil Exam: NORMAL ACCOMODATION - ENT Exam ENT Exam: Mucous Membranes Moist - Neck Exam Additional comments: supple - Respiratory Exam Respiratory Exam: Clear to Auscultation Bilateral. absent: Rales, Rhonchi, Wheezes - Cardiovascular Exam Cardiovascular Exam: REGULAR RHYTHM, +S1, +S2 Additional comments: port on r chest intact, no erythema - GI/Abdominal Exam GI & Abdominal Exam: Normal Bowel Sounds, Soft. absent: Distended, Firm, Guarding - Extremities Exam Extremities exam: Positive for: normal capillary refill, pedal pulses present. Negative for: calf tenderness, pedal edema, tenderness - Back Exam Back exam: absent: CVA tenderness (L), CVA tenderness (R) - Neurological Exam Neurological exam: Oriented x3 - Psychiatric Exam Psychiatric exam: Normal Affect, Normal Mood - Skin Skin Exam: Dry, Normal Color Additional comments: purple macule of varios sizes, not raised throughout all ext with dry patches Results - Vital Signs Recent Vital Signs: Last Vital Signs Temp 98.1 F 01/08/17 16:20 Pulse 85 01/08/17 18:06 Resp 20 01/08/17 16:20 BP 124/74 01/08/17 18:06 Pulse Ox 96 01/08/17 16:20 - Labs Result Diagrams: 01/09/17 07:00 01/09/17 07:00 Labs: Laboratory Results - last 24 hr 01/08/17 01/08/17 01/09/17 07:00 07:00 07:00 WBC 67.9 H* 66.2 H* RBC 4.22 4.00 Hgb 14.1 13.2 L Hct 41.4 L 38.9 L MCV 98.1 97.3 MCH 33.4 33.0 MCHC 34.1 33.9 RDW 16.0 H 16.1 H Plt Count 246 248 MPV 10.9 10.6 Neutrophils % (Manual) 65 Band Neutrophils % 7 H Lymphocytes % (Manual) 6 L Monocytes % (Manual) 14 H Metamyelocytes % 6 Promyelocytes % 2 Platelet Evaluation Normal Sodium 141 Potassium 3.9 Chloride 109 H Carbon Dioxide 18 L Anion Gap 18 BUN 27 H Creatinine 1.3 Est GFR ( Amer) > 60 Est GFR (Non-Af Amer) 52 Random Glucose 76 Calcium 8.9 Total Bilirubin AST ALT Alkaline Phosphatase Total Protein Albumin Globulin Albumin/Globulin Ratio 01/09/17 07:00 WBC RBC Hgb Hct MCV MCH MCHC RDW Plt Count MPV Neutrophils % (Manual) Band Neutrophils % Lymphocytes % (Manual) Monocytes % (Manual) Metamyelocytes % Promyelocytes % Platelet Evaluation Sodium 139 Potassium 4.0 Chloride 109 Carbon Dioxide 19 L Anion Gap 15 BUN 29 H Creatinine 1.2 Est GFR ( Amer) > 60 Est GFR (Non-Af Amer) 58 Random Glucose 91 Calcium 8.7 Total Bilirubin 0.7 AST 29 ALT 29 Alkaline Phosphatase 138 H Total Protein 7.4 Albumin 3.7 Globulin 3.7 Albumin/Globulin Ratio 1.0 L Assessment & Plan - Assessment and Plan (Free Text) Plan: Mr Maddox (362-1) 86 M with PMH of Hx jannette + hemolytic anemia on prednisone, chronic leukocytoisi, t12 compression fx, Asbestosis, COPD, CABG, gastritis, BPH, presents to the ED with cough and L sided back pain. Pt states that this symptoms started a few weeks ago. The cough was productive with yellow phlegm. He also states that his cough exacerbates his L back pain and it became intolerable, 10/10 in severity, which he came to the ED. Pt complaints of fever 1 week ago by the pool and still feel chills today. - Leukocytosis, acute on chronic, 84.8 (baseline 20-40) - Elevated alk phos - CHARITO - likely from vanco - Questionable gram (+) cocci bacteremia, 1/2 bottle, possibly due to contamination Plan - CXR no definite infiltrate. Afebrile - continue vanco (day 2) - redraw blood culture - 2 bottles from peripheral, 2 from port - continue monitor clinical courses Will s/r/d/w Dr. Rivers - Date & Time Date: 01/09/17 Time: 09:19 <Ramin Rivers - Last Filed: 01/09/17 14:08> Meds - Medications Medications: Current Medications Alprazolam (Xanax) 0.25 mg PO TID PRN; Protocol PRN Reason: Anxiety Stop: 01/14/17 18:01 Last Admin: 01/08/17 18:54 Dose: 0.25 mg Aspirin (Aspirin Chewable) 81 mg PO DAILY [facility] Last Admin: 01/09/17 13:13 Dose: 81 mg Clopidogrel Bisulfate (Plavix) 75 mg PO DAILY [facility] Last Admin: 01/09/17 13:14 Dose: 75 mg Famotidine (Pepcid) 20 mg PO BID [facility] Last Admin: 01/09/17 09:23 Dose: 20 mg Vancomycin HCl (Vancomycin 1gm) 1 gm in 250 mls @ 167 mls/hr IVPB Q12H [facility] PRN Reason: Protocol Last Admin: 01/09/17 09:25 Dose: 167 mls/hr Isosorbide Mononitrate (Imdur) 60 mg PO DAILY [facility] Last Admin: 01/09/17 09:22 Dose: 60 mg Levalbuterol HCl (Xopenex) 0.63 mg IH [id number] [facility] Last Admin: 01/09/17 08:21 Dose: 0.63 mg Levalbuterol HCl (Xopenex) 0.63 mg IH Q2 PRN PRN Reason: Shortness of Breath Metoprolol Tartrate (Lopressor) 100 mg PO BRKDIN [facility] Last Admin: 01/09/17 09:22 Dose: 100 mg Prednisone (Prednisone Tab) 5 mg PO DAILY [facility] Last Admin: 01/09/17 09:23 Dose: 5 mg Quetiapine Fumarate (Seroquel) 25 mg PO HS [facility] PRN Reason: Protocol Last Admin: 01/08/17 21:25 Dose: 25 mg Tamsulosin HCl (Flomax) 0.4 mg PO DAILY [facility] Last Admin: 01/09/17 09:21 Dose: 0.4 mg Tramadol HCl (Ultram) 25 mg PO BID PRN PRN Reason: Pain, moderate (4-7) Last Admin: 01/08/17 18:06 Dose: 25 mg Ziprasidone (Geodon Inj) 10 mg IM Q12 PRN; Protocol PRN Reason: severe agitation Results - Vital Signs Recent Vital Signs: Last Vital Signs Temp 98.1 F 01/09/17 08:20 Pulse 70 01/09/17 09:22 Resp 21 01/09/17 08:20 BP 135/80 01/09/17 09:22 Pulse Ox 98 01/09/17 08:20 - Labs Result Diagrams: 01/09/17 07:00 01/09/17 07:00 Labs: Laboratory Results - last 24 hr 01/09/17 01/09/17 07:00 07:00 WBC 66.2 H* RBC 4.00 Hgb 13.2 L Hct 38.9 L MCV 97.3 MCH 33.0 MCHC 33.9 RDW 16.1 H Plt Count 248 MPV 10.6 Neutrophils % (Manual) 64 Band Neutrophils % 6 H Lymphocytes % (Manual) 6 L Monocytes % (Manual) 15 H Metamyelocytes % 3 Myelocytes % 3 Promyelocytes % 3 Platelet Evaluation Normal Plt Clumps, EDTA Present Sodium 139 Potassium 4.0 Chloride 109 Carbon Dioxide 19 L Anion Gap 15 BUN 29 H Creatinine 1.2 Est GFR ( Amer) > 60 Est GFR (Non-Af Amer) 58 Random Glucose 91 Calcium 8.7 Total Bilirubin 0.7 AST 29 ALT 29 Alkaline Phosphatase 138 H Total Protein 7.4 Albumin 3.7 Globulin 3.7 Albumin/Globulin Ratio 1.0 L Assessment & Plan - Assessment and Plan (Free Text) Plan: Infectious Diseases Attending Physician Attestation Patient seen and examined, discussed with medical van driver. I have reviewed the pertinent clinical information for this patient. I agree with the above findings , assessment and plan. In addition, we have started the patient on IV Vancomycin for possible sepsis due to coagulase negative staph bacteremia, R/O due to port on the right anterior chest wall. Will await repeat blood cx to be done today. Patient has marked leukocytosis and needs further Heme/Onc work up and evaluation. Patient also has a T12 vertebra compression fracture and will discuss with Ortho.
[2017-01-09] MEDS: Levalbuterol 0.63 MG/3 ML Inhal Soln UD IH SCH ×3 (08:21→19:31)
--- NOTE | 2017-01-09 08:26 | CON ---
DATE: The patient in room 362, bed #1. REASON FOR CONSULTATION: Coronary artery disease, history of CABG and multiple angioplasties and hypertension. HISTORY OF PRESENT ILLNESS: The patient is an 86-year-old male admitted to the emergency room with history that the patient has intractable pain in the left lower abdomen and groin area. The patient also complained of some back pain. The patient denied any chest pain, shortness of breath, or palpitation. PAST MEDICAL HISTORY: Significant for coronary artery disease, coronary artery bypass surgery, multiple angioplasties, stent insertion. Last cath showed stents were patent and medical therapy was tested. The patient also known to have chronic obstructive pulmonary disease with asbestos, prostatic hyperplasia, peptic ulcer disease, gastritis, chronic constipation, altered mental status, and hypertension. The patient had also GI bleeding in the past. HOME MEDICATIONS: The patient was on Seroquel 25 mg at bedtime, Flomax 0.4 daily, prednisone 5 mg daily, metoprolol 100 mg b.i.d., isosorbide mononitrate 60 daily, Pepcid 20 daily, Plavix 75 mg daily, aspirin 81 mg daily, Xanax 0.25 p.r.n. and Tramadol 25 mg p.r.n. q. 6 hourly. PERSONAL HISTORY: Denies smoking, denies drinking. ALLERGIES: THE PATIENT DENIED ANY ALLERGIES. PHYSICAL EXAMINATION: VITAL SIGNS: Blood pressure 137/70, respirations 20, pulse is 97 and temperature 97.7. HEENT: Head is normocephalic. Eyes; pupils normal. Conjunctivae normal. NECK: JVP low. Carotid equal. Thorax, AP diameter normal. LUNGS: Clear. CARDIOVASCULAR: S1 and S2. ABDOMEN: Soft and nontender. No organomegaly. Bowel sounds are normal. EXTREMITIES: No clubbing. No cyanosis. LABORATORY DATA: Shows WBC 67.9, which is markedly elevated, hemoglobin 14.1, hematocrit 41.4 and platelets 246. Sodium 141, potassium 3.9, BUN 27, creatinine 1.3. Her random glucose 128, calcium 9.1, phosphorus 2.7. AST and ALT normal. EKG showed sinus rhythm, PAC, incomplete right bundle-branch block, ST-T changes. Chest x-ray; bilateral calcified pleural plaques, no infiltrate. Abdominopelvic CT scan; compressive deformity of T12 vertebra, new since 12/07/2016, questionable very small epidural hemorrhage at this level. Lumbar spine MRI showed spinal calcinosis, no disc herniation, recent compression fracture of T12 with marrow edema anteriorly. DIAGNOSES: Coronary artery disease, history of coronary artery bypass graft, history of multiple stents, chronic obstructive pulmonary disease, diverticulitis, gastritis, gastroesophageal reflux disease, BPH, chronic obstructive pulmonary disease with asbestosis, back pain, also intractable pain in left lower abdomen and groin area, markedly elevated white cell count suggestive of leukemoid reaction versus sepsis, hypertension, hyperlipidemia, history of gastrointestinal bleeding, history of peptic ulcer in the past. PLAN: The patient already started on isosorbide mononitrate 60 mg daily, metoprolol 100 mg b.i.d., Pepcid 20 b.i.d., prednisone 5 mg daily, Seroquel 25 mg p.o. at bedtime, Tramadol 25 mg b.i.d. p.r.n. and Xanax 0.25 mg t.i.d. p.r.n. The patient already started on antibiotic Piperacillin-Tazobactam one dose IV was given, started yesterday. The patient on vancomycin 1 g IV q. 12 hours. Clinically, cardiac status stable at this point and we will continue present therapy and we will follow with you closely. Francisca Guan MD
[2017-01-09 09:08] LABS: BAND 6 % (0-2); METAMYELOCYTE 3 %; MYELOCYTE 3 %; NEUTROPHIL 64 % (50.0-70.0); PROMYELOCYTE 3 %
[2017-01-09 09:09] LABS: PLATELET CLUMPS PRESENT; PLATELET ESTIMATE NORMAL (NORMAL)
[2017-01-09] MEDS: Vancomycin 1gm in NS 250ml 1 GM/250 ML BAG IVPB SCH ×2 (09:25→21:16)
--- NOTE | 2017-01-09 13:07 | PN ---
DATE: 01/09/2017 LOCATION: The patient is in the [facility] in [place], room 362, bed 1. SUBJECTIVE: The patient was admitted with intractable pain in the left lower loin area and abdomen. The patient has altered mental state. The patient has history of coronary artery disease, severe chronic lung disease with asbestosis. The patient has history of dementia. The patient also has history of benign prostatic hyperplasia and chronic constipation. The patient is seen this morning. He is in bed. He is somewhat confused and he says his pain is somewhat relieved right now. PHYSICAL EXAMINATION VITAL SIGNS: The patient's pulse is 85, blood pressure 125/75, the patient's respirations are 20, O2 sat is 96% on room air. HEENT: The patient's examination of the head is normocephalic. He has skin lesions on the scalp, numerous. The patient has had past history of basal cell carcinoma extracted from the scalp in the past. NECK: Thyroid is not enlarged. No lymph nodes are present. Trachea is central. LUNGS: Breath sounds are vesicular. Crepitations and rhonchi heard bilaterally diffuse, no localizing signs. ABDOMEN: Soft. Liver and spleen, not palpable. He has distention. No localizing tenderness at this time except to deep palpation on the right side the patient exhibits pain. HEART: Normal sinus rhythm. S1, S2 present. No murmurs. CENTRAL NERVOUS SYSTEM: He has altered mental state with confusion, dementia. The patient is oriented in place, not in time. He is oriented to person. LABORATORY DATA: The patient's MRI was done yesterday, showed an acute fracture of T12. The patient has edema associated with that acute fracture causing possibly pain in the localized area, which is due to edema of the fractured tissue and impingement on the nerve. The patient's white cell count is 66,000. The patient's differential shows the shift is to the left, looks like the white cell count is more related to infection than a neoplastic process on evaluation of the CBC; however, the patient is covered by antibiotics. MEDICATIONS: The patient's medications consist of Flomax, Imdur, metoprolol, Pepcid, prednisone, Seroquel. The patient is on Tramadol for pain. The patient is on Xanax for agitation, Xopenex and the patient is given vancomycin 1 g q.12 hours at this time. PLAN: The consultation with infectious disease, oncologist, trichologist, and orthopedic has been done. The patient has evaluation with Dr. Vo, the orthopedic surgeon. The patient's current condition is unstable. The patient has been treated acutely and had to be monitored very closely because of the elevated white count associated with infection and fracture of the T12 vertebrae. Urinalysis will be repeated with urine culture again. David Pavon MD MTDD
--- NOTE | 2017-01-09 13:45 | CP.PCM.PN ---
Subjective - Date & Time of Evaluation Date of Evaluation: 01/09/17 Time of Evaluation: 09:40 - Subjective Subjective: Heme/ onc note for Dr Walton: Pt seen and examined at bedside. No acute events overnight. States that is back pain is a little better. Denies any nicholas, dizziness, sob, cp, palpitations, abd pain, n/v/d. Objective - Vital Signs/Intake and Output Vital Signs (last 24 hours): Temp Pulse Resp BP Pulse Ox 98.1 F 70 21 135/80 98 01/09/17 08:20 01/09/17 09:22 01/09/17 08:20 01/09/17 09:22 01/09/17 08:20 Intake and Output: 01/09/17 01/09/17 06:59 18:59 Intake Total 820 Balance 820 - Medications Medications: Current Medications Alprazolam (Xanax) 0.25 mg PO TID PRN; Protocol PRN Reason: Anxiety Stop: 01/14/17 18:01 Last Admin: 01/08/17 18:54 Dose: 0.25 mg Aspirin (Aspirin Chewable) 81 mg PO DAILY [facility] Last Admin: 01/09/17 13:13 Dose: 81 mg Clopidogrel Bisulfate (Plavix) 75 mg PO DAILY [facility] Last Admin: 01/09/17 13:14 Dose: 75 mg Famotidine (Pepcid) 20 mg PO BID [facility] Last Admin: 01/09/17 09:23 Dose: 20 mg Vancomycin HCl (Vancomycin 1gm) 1 gm in 250 mls @ 167 mls/hr IVPB Q12H YESSI PRN Reason: Protocol Last Admin: 01/09/17 09:25 Dose: 167 mls/hr Isosorbide Mononitrate (Imdur) 60 mg PO DAILY [facility] Last Admin: 01/09/17 09:22 Dose: 60 mg Levalbuterol HCl (Xopenex) 0.63 mg IH [id number] [facility] Last Admin: 01/09/17 08:21 Dose: 0.63 mg Levalbuterol HCl (Xopenex) 0.63 mg IH Q2 PRN PRN Reason: Shortness of Breath Metoprolol Tartrate (Lopressor) 100 mg PO BRKDIN [facility] Last Admin: 01/09/17 09:22 Dose: 100 mg Prednisone (Prednisone Tab) 5 mg PO DAILY [facility] Last Admin: 01/09/17 09:23 Dose: 5 mg Quetiapine Fumarate (Seroquel) 25 mg PO HS YESSI PRN Reason: Protocol Last Admin: 01/08/17 21:25 Dose: 25 mg Tamsulosin HCl (Flomax) 0.4 mg PO DAILY [facility] Last Admin: 01/09/17 09:21 Dose: 0.4 mg Tramadol HCl (Ultram) 25 mg PO BID PRN PRN Reason: Pain, moderate (4-7) Last Admin: 01/08/17 18:06 Dose: 25 mg Ziprasidone (Geodon Inj) 10 mg IM Q12 PRN; Protocol PRN Reason: severe agitation - Labs Labs: 01/09/17 07:00 01/09/17 07:00 - Constitutional Appears: No Acute Distress - Head Exam Head Exam: ATRAUMATIC, NORMAL INSPECTION, NORMOCEPHALIC - Eye Exam Eye Exam: EOMI, Normal appearance, PERRL Pupil Exam: NORMAL ACCOMODATION, PERRL - Neck Exam Neck Exam: Full ROM, Normal Inspection. absent: Lymphadenopathy - Respiratory Exam Respiratory Exam: Clear to Ausculation Bilateral, NORMAL BREATHING PATTERN. absent: Wheezes - Cardiovascular Exam Cardiovascular Exam: REGULAR RHYTHM, RRR, +S1, +S2. absent: Murmur - GI/Abdominal Exam GI & Abdominal Exam: Soft, Normal Bowel Sounds. absent: Distended, Tenderness - Extremities Exam Extremities Exam: Normal Capillary Refill, Normal Inspection. absent: Calf Tenderness, Joint Swelling, Pedal Edema - Neurological Exam Neurological Exam: Alert, Awake, Oriented x3 - Psychiatric Exam Psychiatric exam: Normal Affect, Normal Mood - Skin Skin Exam: Dry, Intact, Normal Color, Warm Assessment and Plan - Assessment and Plan (Free Text) Assessment: 86 M with pmh of hemolytic anemia, CAD, COPD, CABG, hx of diverticulitis, gastritis, GERD, BPPH, Asbestosis, presents to the ED with cough and L sided back pain. Pt found to have T12 compression fracture. Pt has Félix positive, hemolytic anemia on prednisone now with a leukocytosis of 66.2 Leukocytosis: leukomoid rxn vs sepsis vs infection - medical management as per primary - wbc elevated 66.2 - f/u flow cytometry of the blood and peripheral smear - F/u MRI of the thoracic spine - recent compression fracture of T12 with marrow edema anteriorly - CT abdomen showed new compression deformity of T12 and small epidural hemorrhage at this level. rec MRI - f/u ortho recs - F/u IR recs regarding if candidate for kyphoplasty - f/u cardio recs - Head CT negative - CXR- b/l calcified pleural plaques - Cont Prednisone 5mg daily - F/u ID recs - cont vanc and f/u redraw blood cultures - Daily labs Case and plan was reviewed with Dr Walton
--- NOTE | 2017-01-09 14:35 | PN ---
DATE: 01/09/2017 LOCATION: Room 362, bed 1. REASON FOR CONSULTATION: Follow up with coronary artery disease, history of CABG, multiple angioplasties and hypertension. SUBJECTIVE: The patient denies any chest pain, shortness of breath, palpitation. The patient states his back pain which he was admitted yesterday this is now better. PHYSICAL EXAMINATION VITAL SIGNS: Blood pressure 135/80, respiratory rate 21, pulse 70, temperature 98.1. HEENT: Head is normocephalic. Eyes: Pupil normal. Conjunctiva normal. Nose and throat normal. NECK: JVP low. Carotid equal. Thorax, AP diameter normal. LUNGS: Clear. CARDIOVASCULAR: S1 and S2. ABDOMEN: Soft and nontender. No organomegaly. Bowel sounds are normal. EXTREMITIES: No clubbing. No cyanosis. LABORATORY DATA: WBC 66.2, hemoglobin 13.2, hematocrit 38.9, platelet 248. Sodium 139, potassium 4.0, BUN 29, creatinine 1.2, glucose 91. AST and ALT normal. Protein and albumin normal. DIAGNOSES: Coronary artery disease, history of coronary artery bypass surgery, history of multiple stent, chronic obstructive pulmonary disease, diverticulitis, gastritis, gastroesophageal reflux disease, benign prostatic hyperplasia, chronic obstructive pulmonary disease with asbestosis, back pain, left lower abdominal and groin area which has also improved, markedly elevated WBC count suggestive of leukemoid reaction versus sepsis, hypertension, hyperlipidemia, history of gastrointestinal bleeding, history of peptic ulcer in the past. PLAN: Clinically, cardiac status at this moment is stable and the patient is on aspirin 81 mg p.o. daily, Flomax 0.4 mg daily, isosorbide mononitrate 60 mg daily, metoprolol tartrate 100 mg b.i.d., Pepcid 20 b.i.d., Plavix 75 mg daily, vancomycin 1 g IV q. 12 hour, Xopenex and nebulizer therapy, Pepcid 20 mg b.i.d., Seroquel 25 mg p.o. at bedtime. We will continue present therapy and we will closely follow with you. Francisca Guan MD
[2017-01-09 16:59] LABS: PH,URINE 5.5 (4.7-8.0); URINE BILIRUBIN SMALL (NEGATIVE); URINE BLOOD SMALL (NEGATIVE); URINE GLUCOSE (UA) NEGATIVE (NEGATIVE); URINE KETONE NEGATIVE (NEGATIVE); URINE LEUKOCYTE ESTERASE NEGATIVE Leu/uL (NEGATIVE); URINE PROTEIN 30 mg/dL (<30 mg/dL); URINE UROBILINOGEN 0.2 E.U./dL (<1 E.U./dL)
[2017-01-09 17:02] LABS: URINE APPEARANCE CLEAR (CLEAR); URINE COLOR YELLOW (YELLOW)
--- NOTE | 2017-01-09 17:27 | CON ---
DATE: 01/09/2017 PULMONARY CONSULTATION REASON FOR CONSULTATION: Chronic obstructive pulmonary disease. REFERRING PHYSICIAN: Dr. Pavon. HISTORY OF PRESENT ILLNESS: The patient is an 86-year-old male with past medical history significant for chronic obstructive pulmonary disease, asbestos lung disease, extensive coronary artery disease, status post open heart surgery, status multiple angioplasties, who presented to [facility]-originally on 01/07/2017-with increasing left lower back pain. CAT scan of the abdomen and pelvis was done in the emergency room. There was a compression deformity of the T12 vertebrae noted. The patient was thus admitted for additional evaluation. The patient is not short of breath at rest. He does have chronic dyspnea on exertion. He denies cough or sputum production. The patient also denies chest pain, coughing up of blood or chest pain-made worse with deep respirations. There is no history of temperatures, chills, infectious exposure. There is no history of night sweats, weight loss, or appetite change prior to the above events. No history of calf pains. No history of syncope or diaphoresis. No history of recent travel or trauma. REVIEW OF SYSTEMS: No history of nausea, vomiting or diarrhea. No acute urinary symptoms. No new neurologic complaints. Rest of the review systems negative. ALLERGIES: NO KNOWN ALLERGIES. SOCIAL HISTORY: Positive for tobacco, negative for alcohol. FAMILY HISTORY: No inheritable diseases. HOME MEDICATIONS: Include Ultram, Flomax, Seroquel, Deltasone, Lopressor, Imdur, Pepcid, Plavix, aspirin, Xanax. PHYSICAL EXAMINATION: GENERAL: The patient appears comfortable this morning. He is not short of breath at rest. VITAL SIGNS: Temperature is 98.1, pulse 85, respirations 18/20, blood pressure 124/74, oxygen saturation on room air is 96%. HEENT: Normocephalic and atraumatic. NECK: No JVD. CARDIOVASCULAR: Systolic ejection murmur at the lower left sternal border. No S3 gallop. LUNGS: Decreased breath sounds at the bases. Minimal rhonchi. No wheezing. EXTREMITIES: Mild edema. No cyanosis, no clubbing. Calves are nontender to palpation. GASTROINTESTINAL: Abdomen is soft, nontender, and nondistended. Bowel sounds are positive. SKIN: No acute rash. NEUROLOGIC: Limited at the present time. LABORATORY DATA: Abdominal and pelvic CAT scan was done on 01/07/2017. The lower thorax shows bilateral calcified pleural plaques consistent with asbestos lung disease. There is also an ill-defined opacity in the posterior right lower lobe-unchanged from the previous exam. No enlarged lymph nodes. There is a compression deformity of the T12 vertebrae. CBC: White count 67.9, hemoglobin 14.1, hematocrit 41.4, platelets of 246. Complete metabolic profile: Chloride 109, carbon dioxide 18, BUN 27. Rest of the metabolic profile is within normal limits. IMPRESSION: 1. Left lower back pain. 2. Compression fracture T12 vertebrae. 3. Chronic obstructive pulmonary disease. 4. Asbestos lung disease. 5. Extensive coronary artery disease. 6. Leukocytosis. PLAN: The patient presented to [facility]-originally on 01/07/2017-with increasing left lower back pain for the past week. As above, abdominal and pelvic CAT scan was done in the emergency room. There are no acute lung findings noted. However, there was an acute compression fracture at the T12 vertebrae found. The patient was thus admitted for additional evaluation. I have also reviewed the chest x-ray. The chest x-ray shows chronic asbestos lung disease. There are no acute findings. On physical exam, minimal bronchospasm is noted. Oxygen saturation on room air is 98%. The patient is on low dose prednisone. I will add Xopenex nebulizer treatment this morning. Inputs by orthopedics and psychiatry are noted. The patient does feel better this morning with less back pain and is clinically improved. Oncology evaluation is ongoing-due to the leukocytosis. Additional pulmonary intervention will be based on the clinical status of the patient. I will discuss the above with Dr. Pavon. Thank you very much for this pulmonary consultation. Lopez Shah MD JAYDEN
[2017-01-09 17:49] LABS: URINE BACTERIA RARE (NEG); URINE EPITHELIAL CELLS 0 - 2 /hpf (0-5); URINE WBC 0 - 2 /hpf (0-6)
--- NOTE | 2017-01-09 23:30 | PN ---
DATE: 01/09/2017 SUBJECTIVE: The patient is an 86-year-old male with long history of dementia. The patient was admitted on the medical side for evaluation of cough as well as left-sided back pain. Psych consult was called for evaluation of worsening of dementia as well as confusion. Please see consultation note initial for more detailed information. The patient is very familiar to this food writer from the previous admission on the medical side. This food writer was senior talent management consultant on the case. The patient was followed up today. The patient presented to be alert, oriented himself, but does not know that he is in the hospital and does not know what day it is. The patient is presently confused, majority of the times the patient was confabulating. The patient does not remember this food writer either. The patient denied being depressed, reported that he feels okay. Denied any psychotic symptoms. As per nursing report, the patient is compliant with treatment, at times is restless, but there is no behavioral incidents. The patient is compliant with the medication and treatment plan. PHYSICAL EXAMINATION: VITAL SIGNS: Reviewed. Temperature is 97.8, pulse is 72, blood pressure 135/75, respiration 18 and oxygen saturation is 98%. MEDICATIONS: Reviewed. Xanax 0.25 mg 3 times as needed, aspirin, Plavix, Pepcid, Imdur, *------*, Lopressor and prednisone. The patient is on Seroquel 25 mg with the nighttime scheduled, started by medical team. Flomax, Ultram, vancomycin, Geodon as needed 10 mg q. 12 hours for severe agitation. The patient did not get any IMs so far, which means the patient was in good behavioral control. LABORATORY DATA: Reviewed. The patient has leucocytes 66.2, hemoglobin and hematocrit 13.2 and 38.9 respectively. Microbiology showed gram-positive cocci in blood culture. MENTAL STATUS EXAMINATION: The patient presented to be alert and oriented to himself only. Pleasant, cooperative, socially appropriate. Intermittent eye contact. Speech was underproductive. Mood described "I'm okay." Affect was reactive, mood congruent. Thought process disorganized, the patient confabulates. Thought content, the patient was not able to understand the questions about hallucinations and delusions. The patient denied thoughts of harming himself or others. Insight and judgment are impaired. The patient has chronic Alzheimer's dementia. Impulses are well controlled. IMPRESSION: Delirium and dementia. The patient has gram-positive cocci in blood. The patient has multiple medical issues. Please see medical team notes for more detailed information. PLAN: Continue current management in regards of psychotropic medications. Continue Seroquel at the nighttime. Continue Xanax. Continue close observation. This food writer will follow up and advise accordingly. Physical therapy would be recommended. Should you have any questions give me a call back. The patient seems to be at his baseline. This write will follow up on this patient tomorrow. Thank you very much letting me to participate in care of your patient. Juju Boyle MD
[2017-01-10] MEDS: Levalbuterol 0.63 MG/3 ML Inhal Soln UD IH SCH ×4 (01:52→22:35)
--- NOTE | 2017-01-10 06:43 | CP.PCM.PN ---
<GarretLaceyDeena - Last Filed: 01/10/17 06:40> Subjective - Date & Time of Evaluation Date of Evaluation: 01/10/17 Time of Evaluation: 06:40 Objective - Vital Signs/Intake and Output Vital Signs (last 24 hours): Temp Pulse Resp BP Pulse Ox 98.5 F 91 H 21 145/80 95 01/10/17 06:00 01/10/17 06:00 01/10/17 06:00 01/10/17 06:00 01/10/17 06:00 Intake and Output: 01/09/17 01/10/17 18:59 06:59 Intake Total 1620 Balance 1620 - Medications Medications: Current Medications Alprazolam (Xanax) 0.25 mg PO TID PRN; Protocol PRN Reason: Anxiety Stop: 01/14/17 18:01 Last Admin: 01/10/17 05:03 Dose: 0.25 mg Aspirin (Aspirin Chewable) 81 mg PO DAILY [facility] Last Admin: 01/09/17 13:13 Dose: 81 mg Clopidogrel Bisulfate (Plavix) 75 mg PO DAILY [facility] Last Admin: 01/09/17 13:14 Dose: 75 mg Famotidine (Pepcid) 20 mg PO BID [facility] Last Admin: 01/09/17 17:17 Dose: 20 mg Vancomycin HCl (Vancomycin 1gm) 1 gm in 250 mls @ 167 mls/hr IVPB Q12H [facility] PRN Reason: Protocol Last Admin: 01/09/17 21:16 Dose: 167 mls/hr Isosorbide Mononitrate (Imdur) 60 mg PO DAILY [facility] Last Admin: 01/09/17 09:22 Dose: 60 mg Levalbuterol HCl (Xopenex) 0.63 mg IH [id number] [facility] Last Admin: 01/10/17 01:52 Dose: 0.63 mg Levalbuterol HCl (Xopenex) 0.63 mg IH Q2 PRN PRN Reason: Shortness of Breath Metoprolol Tartrate (Lopressor) 100 mg PO BRKDIN [facility] Last Admin: 01/09/17 17:17 Dose: 100 mg Prednisone (Prednisone Tab) 5 mg PO DAILY [facility] Last Admin: 01/09/17 09:23 Dose: 5 mg Quetiapine Fumarate (Seroquel) 25 mg PO HS [facility] PRN Reason: Protocol Last Admin: 01/09/17 21:19 Dose: 25 mg Tamsulosin HCl (Flomax) 0.4 mg PO DAILY [facility] Last Admin: 01/09/17 09:21 Dose: 0.4 mg Tramadol HCl (Ultram) 25 mg PO BID PRN PRN Reason: Pain, moderate (4-7) Last Admin: 01/10/17 05:06 Dose: 25 mg Ziprasidone (Geodon Inj) 10 mg IM Q12 PRN; Protocol PRN Reason: severe agitation - Labs Labs: 01/09/17 07:00 01/09/17 07:00 Assessment and Plan - Assessment and Plan (Free Text) Plan: Mr Maddox ([id number]) 86 M with PMH of Hx jannette + hemolytic anemia on prednisone, chronic leukocytoisi, t12 compression fx, Asbestosis, COPD, CABG, gastritis, BPH, presents to the ED with cough and L sided back pain. Pt states that this symptoms started a few weeks ago. The cough was productive with yellow phlegm. He also states that his cough exacerbates his L back pain and it became intolerable, 10/10 in severity, which he came to the ED. Pt complaints of fever 1 week ago by the pool and still feel chills today. - Leukocytosis, acute on chronic, 84.8 (baseline 20-40) - Elevated alk phos possibly from T12 vertebra compression fracture, acute on chronic - CHARITO - Questionable gram (+) cocci bacteremia, 1/2 bottle, possibly due to contamination - R/O coagulase negative staph bacteremia due to port on the right anterior chest wall Plan - CXR no definite infiltrate. Afebrile - continue vanco (day 3) for possible sepsis due to coagulase negative staph bacteremia - redraw blood culture - 2 bottles from peripheral, 2 from port - continue monitor clinical courses - Dr. Vo recommended IR consult for CT-guided needle bx of T12 marrow edema and will be sent for cytology and culture, to r/o abscess - Pending CRP, ESR Will s/r/d/w Dr. Rivers <Ramin Rivers - Last Filed: 01/10/17 15:19> Subjective - Subjective Subjective: Patient is feeling better, less pain in the back, no fevers overnight. Objective - Vital Signs/Intake and Output Vital Signs (last 24 hours): Temp Pulse Resp BP Pulse Ox 98.5 F 91 H 21 145/80 95 01/10/17 08:11 01/10/17 09:27 01/10/17 08:11 01/10/17 09:27 01/10/17 08:11 Intake and Output: 01/10/17 01/10/17 06:59 18:59 Intake Total 1620 Balance 1620 - Medications Medications: Current Medications Alprazolam (Xanax) 0.25 mg PO TID PRN; Protocol PRN Reason: Anxiety Stop: 01/14/17 18:01 Last Admin: 01/10/17 05:03 Dose: 0.25 mg Aspirin (Aspirin Chewable) 81 mg PO DAILY [facility] Last Admin: 01/10/17 09:26 Dose: 81 mg Clopidogrel Bisulfate (Plavix) 75 mg PO DAILY [facility] Last Admin: 01/10/17 09:28 Dose: 75 mg Famotidine (Pepcid) 20 mg PO BID [facility] Last Admin: 01/10/17 09:27 Dose: 20 mg Vancomycin HCl (Vancomycin 1gm) 1 gm in 250 mls @ 167 mls/hr IVPB Q12H [facility] PRN Reason: Protocol Last Admin: 01/10/17 09:29 Dose: 167 mls/hr Isosorbide Mononitrate (Imdur) 60 mg PO DAILY [facility] Last Admin: 01/10/17 09:27 Dose: 60 mg Levalbuterol HCl (Xopenex) 0.63 mg IH [id number] [facility] Last Admin: 01/10/17 13:44 Dose: 0.63 mg Levalbuterol HCl (Xopenex) 0.63 mg IH Q2 PRN PRN Reason: Shortness of Breath Lorazepam (Ativan) 0.5 mg PO HS PRN; Protocol PRN Reason: anxiety/insomnia Metoprolol Tartrate (Lopressor) 100 mg PO BRKDIN [facility] Last Admin: 01/10/17 09:27 Dose: 100 mg Prednisone (Prednisone Tab) 5 mg PO DAILY [facility] Last Admin: 01/10/17 09:28 Dose: 5 mg Quetiapine Fumarate (Seroquel) 25 mg PO HS [facility] PRN Reason: Protocol Last Admin: 01/09/17 21:19 Dose: 25 mg Tamsulosin HCl (Flomax) 0.4 mg PO DAILY [facility] Last Admin: 01/10/17 09:27 Dose: 0.4 mg Tramadol HCl (Ultram) 25 mg PO BID PRN PRN Reason: Pain, moderate (4-7) Last Admin: 01/10/17 05:06 Dose: 25 mg Ziprasidone (Geodon Inj) 10 mg IM Q12 PRN; Protocol PRN Reason: severe agitation - Labs Labs: 01/10/17 06:30 01/10/17 11:15 - Constitutional Appears: Non-toxic, No Acute Distress - Head Exam Head Exam: NORMAL INSPECTION - ENT Exam ENT Exam: Mucous Membranes Moist - Neck Exam Neck Exam: absent: Lymphadenopathy, Meningismus - Respiratory Exam Respiratory Exam: Decreased Breath Sounds - Cardiovascular Exam Cardiovascular Exam: +S1, +S2 - GI/Abdominal Exam GI & Abdominal Exam: Soft. absent: Tenderness Assessment and Plan - Assessment and Plan (Free Text) Plan: Infectious Diseases Attending Physician Attestation Patient seen and examined, discussed with biomedical instrument technician. I agree with the above findings, assessment and plan. In addition, as discussed with Dr. Michaels, T12 vertebra is less likely infected. Can have repeat imaging later on. We are currently treating for possible Coag negative staph bacteremia, R/O due to right sided port-a-cath infection. Follow up repeat blood cx. Will continue IV Vancomycin.
[2017-01-10 07:14] LABS: HEMATOCRIT 35.4 % (42.0-52.0); MEAN CELL VOLUME 98.1 fl (80.0-105.0); MEAN CORPUSCULAR HEMOGLOBIN 32.7 pg (25.0-35.0); MEAN CORPUSCULAR HGB CONC 33.3 g/dl (31.0-37.0); MEAN PLATELET VOLUME 11.2 fl (7.0-11.0); PLATELET COUNT 237 10^3/uL (120.0-450.0); RED CELL DISTRIBUTION WIDTH 16.2 % (11.5-14.5)
[2017-01-10 07:17] LABS: ADD MANUAL DIFF? YES; WHITE BLOOD COUNT 59.7 10^3/ul (4.5-11.0)
--- NOTE | 2017-01-10 08:21 | PN ---
DATE: 01/10/2017 SUBJECTIVE: The patient appears comfortable this morning. He is not short of breath at rest. PHYSICAL EXAMINATION: VITAL SIGNS: Temperature is 98.5, pulse 90, respirations 18, blood pressure 145/80, oxygen saturation on nasal cannula is 95%. HEENT: Normocephalic and atraumatic. NECK: No JVD. CARDIOVASCULAR: Systolic ejection murmur at the lower left sternal border. No S3 gallop. LUNGS: Decreased breath sounds at the bases. Minimal/less rhonchi. No wheezing. EXTREMITIES: Mild edema. No cyanosis, no clubbing. Calves are nontender to palpation. GASTROINTESTINAL: Abdomen is soft, nontender, and nondistended. Bowel sounds are positive. SKIN: No acute rash. NEUROLOGIC: Limited at the present time. IMPRESSION: 1. Left lower back pain. 2. Compression fracture T12 vertebrae. 3. Chronic obstructive pulmonary disease. 4. Asbestos lung disease. 5. Extensive coronary artery disease. 6. Leukocytosis. PLAN: The patient appears more comfortable this morning. He is not short of breath at rest. He does state that he is feeling better. On physical exam, only minimal bronchospasm is noted. In addition, the oxygen saturation on nasal cannula is between 95% to 98%. I will continue with the current nebulizer treatments and low-dose oral steroids for now. Repeat a.m. labs are pending. The leukocytosis persists. Oncology evaluation is ongoing. Clinical status of the patient has improved - compared to the initial presentation. However, the overall status/prognosis of this very elderly gentleman does remain guarded. I will discuss the above with Dr. Pavon. Lopez Shah MD JAYDEN
[2017-01-10] MEDS: Vancomycin 1gm in NS 250ml 1 GM/250 ML BAG IVPB SCH ×2 (09:29→21:49)
[2017-01-10 09:49] LABS: ATYPICAL LYMPHOCYTE 2 % (0.0-0.0); BAND 2 % (0-2); METAMYELOCYTE 3 %; MYELOCYTE 6 %; NEUTROPHIL 67 % (50.0-70.0); PROMYELOCYTE 2 %
[2017-01-10 11:03] LABS: ERYTHROCYTE SEDIMENTATION RATE 45 mm/hr (0.00-15.0)
[2017-01-10 11:38] LABS: CALCIUM 8.9 mg/dL (8.4-10.5); POTASSIUM 3.6 mmol/L (3.6-5.0); TOTAL PROTEIN 7.4 g/dL (5.8-8.3)
--- NOTE | 2017-01-10 12:05 | PN ---
DATE: SUBJECTIVE: The patient is admitted to room 362, bed 1, [facility] in [place]. He is an 86-year-old white male. The patient has long history of coronary artery disease, chronic obstructive lung disease, and asbestosis of the lung. The patient has a history of altered mental state. The patient has history of multiple angioplasties and extraction of multiple skin lesions that are basal cell carcinomas on the scalp and he also had extraction of basal cell carcinoma upon dorsal surface of the hand. PHYSICAL EXAMINATION: GENERAL: He is confused. VITAL SIGNS: This morning, his pulse is 91, blood pressure 140/80, his respirations are 21, O2 saturation 97%, and temperature 98.5. HEENT: Head is normocephalic, except for the fact that the patient has scars from previous surgery. NECK: Thyroid is not enlarged. Lymph nodes are not palpable. HEART: Normal sinus rhythm. Sinus tachycardia. LUNGS: The patient had no localizing signs. Trachea is central. Breath sounds are brisk without adventitious sounds are heard. Bilateral rhonchi and crepitations. ABDOMEN: Soft. Liver and spleen not palpable. The patient has some tenderness in the right side of the abdomen. CENTRAL NERVOUS SYSTEM: The patient has no focal neurological deficits, but has organic brain disease. LABORATORY DATA: The patient's x-ray shows evidence of a fracture T12, which is acute. The patient has edema in that area associated with pain localized to that area and also to the left side of the abdomen. The patient is getting treatment for sepsis. His white count is markedly elevated. His lab work shows that the white count is 59,700 and his hemoglobin 11.8. The differential show neutrophil count of 64%. The patient is being seen by Dr. Walton, his oncologist. The patient is also seen by Infectious Disease Department, field technical support consultant Dr. Burger. The patient is seen by small battery plate assembler. The patient is also seen by the shrimp peeling machine tender. We will continue medications. The list of the medicines consist of aspirin, Flomax, isosorbide mononitrate, metoprolol, Pepcid, Plavix, prednisone, Seroquel, tramadol, vancomycin 1 g IV q.12 hours, and Xanax p.r.n. for anxiety. The patient is also seen by Dr. Juju Boyle, psychiatrist. The patient's clinical condition seems to be stable at this time. His overall prognosis is guarded. We will follow up on all the tests and continue treatment. David Pavon MD MTDNubia
--- NOTE | 2017-01-10 12:45 | PN ---
DATE: 01/10/2017 LOCATION: Room 362, bed 1. REASON FOR CONSULTATION: Follow up with coronary artery disease, history of CABG, multiple angioplasty stents and hypertension. SUBJECTIVE: The patient was admitted with back pain and also has inguinal pain in the area. The patient now states that he has no pain in inguinal area, but back pain he still has, but this has improved. Denies chest pain, shortness of breath or palpitation. PHYSICAL EXAMINATION: VITAL SIGNS: Blood pressure 145/80, respiratory rate 21, pulse 91, temperature 98.5. HEENT: Head is normocephalic. Eyes: Pupil normal. Conjunctiva normal. Nose and throat normal. NECK: JVP low. Carotid equal. Thorax, AP diameter normal. LUNGS: Clear. CARDIOVASCULAR: S1 and S2. ABDOMEN: Soft and nontender. No organomegaly. Bowel sounds are normal. EXTREMITIES: No clubbing. No cyanosis. LABORATORY DATA: WBC is 59.7, hemoglobin 11.8, hematocrit 35.4, platelet 237. Sodium 139, potassium 4.0, BUN 29, creatinine 1.2. AST and ALT normal. DIAGNOSES: Back pain, improving. Coronary artery disease, history of coronary artery bypass surgery with multiple stents insertion, chronic obstructive pulmonary disease, diverticulitis, gastritis, gastroesophageal reflux disease, benign prostatic hyperplasia, history of gastrointestinal bleeding, peptic ulcer disease history in the past, hyperlipidemia, hypertension, history of WBC count elevation, which is much more elevated now. PLAN: The patient is asymptomatic from cardiac point of view. We will continue present therapy with aspirin and isosorbide mononitrate, metoprolol, Plavix, vancomycin the patient is getting IV 1 g b.i.d., Xopenex, Flomax. We will continue to follow closely Francisca Guan MD
--- NOTE | 2017-01-10 15:21 | CP.PCM.PN ---
Subjective - Date & Time of Evaluation Date of Evaluation: 01/10/17 Time of Evaluation: 09:30 - Subjective Subjective: 86 M with pmh of hemolytic anemia, CAD, COPD, CABG, hx of diverticulitis, gastritis, GERD, BPPH, Asbestosis, presents to the ED with cough and L sided back pain. Pt found to have T12 compression fracture. Pt has Félix positive, hemolytic anemia on prednisone now with a leukocytosis of 66.2 Leukocytosis: leukomoid rxn vs sepsis vs infection - medical management as per primary - Will f/u with patients family regarding his compression fracture and possible kyphoplasty - wbc elevated 59.7 - flow cytometry of the blood was negative - peripheral smear showed leukomoid reaction - Ordered Jak2 mutation, BCR/abl, Will f/u - F/u MRI of the thoracic spine - recent compression fracture of T12 with marrow edema anteriorly - CT abdomen showed new compression deformity of T12 and small epidural hemorrhage at this level. rec MRI - f/u ortho recs - F/u IR recs regarding if candidate for kyphoplasty - f/u cardio recs - cont current management - Head CT negative - CXR- b/l calcified pleural plaques - Cont Prednisone 5mg daily - F/u ID recs - cont vanc - Daily labs Case and plan was reviewed with Dr Walton Objective - Vital Signs/Intake and Output Vital Signs (last 24 hours): Temp Pulse Resp BP Pulse Ox 98.5 F 91 H 21 145/80 95 01/10/17 08:11 01/10/17 09:27 01/10/17 08:11 01/10/17 09:27 01/10/17 08:11 Intake and Output: 01/10/17 01/10/17 06:59 18:59 Intake Total 1620 Balance 1620 - Medications Medications: Current Medications Alprazolam (Xanax) 0.25 mg PO TID PRN; Protocol PRN Reason: Anxiety Stop: 01/14/17 18:01 Last Admin: 01/10/17 05:03 Dose: 0.25 mg Aspirin (Aspirin Chewable) 81 mg PO DAILY [facility] Last Admin: 01/10/17 09:26 Dose: 81 mg Clopidogrel Bisulfate (Plavix) 75 mg PO DAILY [facility] Last Admin: 01/10/17 09:28 Dose: 75 mg Famotidine (Pepcid) 20 mg PO BID [facility] Last Admin: 01/10/17 09:27 Dose: 20 mg Vancomycin HCl (Vancomycin 1gm) 1 gm in 250 mls @ 167 mls/hr IVPB Q12H [facility] PRN Reason: Protocol Last Admin: 01/10/17 09:29 Dose: 167 mls/hr Isosorbide Mononitrate (Imdur) 60 mg PO DAILY [facility] Last Admin: 01/10/17 09:27 Dose: 60 mg Levalbuterol HCl (Xopenex) 0.63 mg IH [id number] [facility] Last Admin: 01/10/17 13:44 Dose: 0.63 mg Levalbuterol HCl (Xopenex) 0.63 mg IH Q2 PRN PRN Reason: Shortness of Breath Lorazepam (Ativan) 0.5 mg PO HS PRN; Protocol PRN Reason: anxiety/insomnia Metoprolol Tartrate (Lopressor) 100 mg PO BRKDIN [facility] Last Admin: 01/10/17 09:27 Dose: 100 mg Prednisone (Prednisone Tab) 5 mg PO DAILY [facility] Last Admin: 01/10/17 09:28 Dose: 5 mg Quetiapine Fumarate (Seroquel) 25 mg PO HS [facility] PRN Reason: Protocol Last Admin: 01/09/17 21:19 Dose: 25 mg Tamsulosin HCl (Flomax) 0.4 mg PO DAILY [facility] Last Admin: 01/10/17 09:27 Dose: 0.4 mg Tramadol HCl (Ultram) 25 mg PO BID PRN PRN Reason: Pain, moderate (4-7) Last Admin: 01/10/17 05:06 Dose: 25 mg Ziprasidone (Geodon Inj) 10 mg IM Q12 PRN; Protocol PRN Reason: severe agitation - Labs Labs: 01/10/17 06:30 01/10/17 11:15
--- NOTE | 2017-01-10 16:04 | PN ---
DATE: 01/10/2017 SUBJECTIVE: The patient was followed up today. As per nursing report, the patient had restless night, was not tapped up much, but overall patient is doing okay. There is no agitation or aggression. Patient is compliant with the medication and treatment plan, had good appetite. Patient is polite and [id number]. This is the right time to speak to this patient. Patient does not remember this proposal manager writer despite the fact that patient was seen on daily basis, patient confabulates, he does not remember what he ate at the morning time. Patient is pleasantly confused. Patient said that he had good night sleep and expressed no concerns, denied being depressed, denies thoughts of harming himself. PHYSICAL EXAMINATION VITAL SIGNS: Stable. Temperature 98.5, pulse 91, blood pressure 145/80, respirations 21, oxygen saturation is 95. MEDICATIONS: Reviewed. Patient is on Xanax 25 mg three times a day as needed, most recent was at 5 a.m. today. Patient is on aspirin, Plavix, Pepcid, Imdur, Zenapax, Lopressor, Prednisone, Seroquel, Flomax, Tramadol, Vancomycin, and Geodon 10 mg as needed. Patient did not need Geodon because patient is in good behavioral control. LABORATORY DATA: Reviewed. WBC is of 59.7 which is better as compared with yesterday, it was 66. Chemistry reviewed. Reports reviewed. MENTAL STATUS EXAMINATION: Patient appears to be alert, pleasantly confused, intermittent eye contact, speech was confabulation. Mood described "I am fine." Affect reactive. Mood congruent, Thought process circumstantial. Thought content, patient denied visual, auditory or tactile hallucinations, mild dysarthria, though the patient understands the question. IMPRESSION: Delirium on dementia. Patient has gram positive cocci in blood, sepsis. See medical team notes for more detailed information. PLAN: Continue current management. Continue Xanax. Xanax could be given at nighttime for insomnia as well because of the short acting benzodiazepines or consider small dose of Sonata. Continue current management and patient seems to be doing well. Continue Seroquel 25 mg at nighttime. Discharged. We will see her overall should you have any questions give Dr. Huerta for consultation for followup or Dr. Matias will be covering for this proposal manager writer. This proposal manager writer will be on vacation since Friday. Thank you very much letting me to participate in care of your patient. Should you have any questions give me a call back. Juju Boyle MD
[2017-01-11] MEDS: Levalbuterol 0.63 MG/3 ML Inhal Soln UD IH SCH ×4 (03:00→19:56)
[2017-01-11 06:31] LABS: HEMATOCRIT 39.1 % (42.0-52.0); MEAN CELL VOLUME 97.5 fl (80.0-105.0); MEAN CORPUSCULAR HEMOGLOBIN 33.2 pg (25.0-35.0); PLATELET COUNT 301 10^3/uL (120.0-450.0); RED CELL DISTRIBUTION WIDTH 16.1 % (11.5-14.5)
[2017-01-11 06:40] LABS: ALKALINE PHOSPHATASE 133 U/L (38-133); ALT/SGPT 28 U/L (7-56); AST/SGOT 39 U/L (15-59); BILIRUBIN,TOTAL 0.9 mg/dL (0.2-1.3); BLOOD UREA NITROGEN 24 mg/dL (7-21); CARBON DIOXIDE 18 mmol/L (21-33); CHLORIDE 107 mmol/L (98-107); GFR AFRICAN-AMERICAN > 60; GLUCOSE,RANDOM 74 mg/dL (70-110); POTASSIUM 3.9 mmol/L (3.6-5.0); SODIUM 141 mmol/L (132-148); TOTAL PROTEIN 7.8 g/dL (5.8-8.3)
[2017-01-11 06:46] LABS: WHITE BLOOD COUNT 74.1 10^3/ul (4.5-11.0)
[2017-01-11 06:47] LABS: ADD MANUAL DIFF? YES
[2017-01-11 09:16] LABS: METAMYELOCYTE 1 %; MYELOCYTE 7 %; NEUTROPHIL 76 % (50.0-70.0); PLATELET ESTIMATE NORMAL (NORMAL); PROMYELOCYTE 1 %
[2017-01-11] MEDS: Vancomycin 1gm in NS 250ml 1 GM/250 ML BAG IVPB SCH ×2 (09:32→23:09)
--- NOTE | 2017-01-11 13:43 | PN ---
PULMONARY PROGRESS NOTE: DATE: 01/11/2017 SUBJECTIVE: The patient feels well, does not complaint of any respiratory distress. I noticed intermittent cough, which is nonproductive. The patient states that this is chronic and he has had this for years. He is anxious to be discharged in the morning, and he is not sure who follows him on a long-term basis. PHYSICAL EXAMINATION: GENERAL: The patient is resting comfortably as described above. VITAL SIGNS: Stable. He is afebrile with a pulse of 88, respiratory rate of 16, blood pressure of 146/80, and O2 saturation of 95% on room air. HEENT: Normocephalic, atraumatic. NECK: Supple. No JVD. No lymphadenopathy. No bruit. No mass. CARDIOVASCULAR: Regular rhythm, S1 and S2 without murmur, gallop, or rub. CHEST: Global decreasing breath sounds. No rales, rhonchi, or wheezes. ABDOMEN: Soft. Bowel sounds normoactive without mass, guarding or rebound. No organomegaly. EXTREMITIES: Reveal no clubbing, cyanosis, or edema. There is no Sveta's sign. SKIN: Shows no rash or excoriation. NEUROLOGICAL: Shows no focal findings. The patient is sitting in his chair, but he appears to be moving all extremities and not complaining of any problems. LYMPHADENOPATHY: Negative. There are no lymph nodes palpated in the supraclavicular notch nor in the cervical, inguinal, or axillary areas. CLINICAL IMPRESSION: 1. Lower back pain. 2. Compression fracture, T12. 3. Chronic obstructive pulmonary disease, stable. 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 5. Significant coronary artery disease. PLAN: The patient is stable from the pulmonary point of view. He must have followup from the machine hoop maker helper as an outpatient. The machine hoop maker helper needs to follow his obstructive phenomenon-COPD and his restrictive phenomenon-asbestosis. Change in medications may be helpful; however, this needs to be change when the patient is in his home environment and he is doing the activity as he is normally doing. His ADL need to be considered when adjusting medication. We will be happy to intervene as an outpatient should he decide. At this point, however, there is nothing that needs to be done. His condition is significant and needs outpatient pulmonary followup. Thank you for the opportunity to see this patient and manage him. We will be happy to see him again. Kane Leyva MD
--- NOTE | 2017-01-11 13:56 | PN ---
DATE: LOCATION: He is in room 362, bed 1. SUBJECTIVE: The patient was admitted with pain in the left loin area involving the sacroiliac joint. The patient has pain in the left side of the abdomen. The patient was in agony and he has past history of coronary artery disease, chronic obstructive lung disease, asbestosis, and osteoarthritis. The patient has a history of peptic ulcer disease and chronic constipation. The patient has had multiple angioplasties in the past. The patient is saying this morning he is sleeping and he was woken up. I talked to him, and advised him that he has to continue his medicines. He has an acute illness and needs the antibiotics at this time and also he needs evaluation for the pain in the left side of the lumbar spine at the level of T12. T12 is fractured and there is edema of that area. PHYSICAL EXAMINATION: VITAL SIGNS: Pulse is 86, blood pressure 123/69, the patient's respirations are 21, and temperature 97.7. HEENT: The patient's head is normocephalic. NECK: Thyroid is not enlarged. No lymphadenopathy in the neck. LUNGS: Trachea is central. Bilateral crepitations and rhonchi heard. There are no localizing signs. HEART: Normal sinus rhythm. S1 and S2 present. No murmurs. ABDOMEN: Soft. Liver and spleen not palpable. The patient has some tender in the left lower quadrant on deep palpation. CENTRAL NERVOUS SYSTEM: He is conscious and confused. There are no focal neurological deficits. The patient is able to walk, but he does stagger. LABORATORY DATA: His blood work shows CBC of 74,100 and his platelet count of 301,000. The patient's chemistry, sodium is 141, the patent's sugar is 74 random and the patient is conscious and does not show any symptoms of hyperglycemia. The patient is currently on medications, he gets aspirin. He is on Ativan for agitation and Flomax for BPH. The patient is on isosorbide mononitrate 60 mg daily and metoprolol 100 mg b.i.d. The patient is on Pepcid 20 mg daily, Plavix 75 mg daily, prednisone 5 mg daily, Seroquel 25 mg at bedtime, tramadol for pain, and vancomycin 1 g q.24 hours. The patient is on Xanax 0.25 mg t.i.d p.r.n. for anxiety and also Xopenex for respiratory treatment. The patient is on heart-healthy diet. We continue current management. He is on the antibiotics and he will be observed for his clinical condition, which is very acute and the white cell count points towards a pseudoleukemic reaction probably due to infection. David Pavon MD MTDD
--- NOTE | 2017-01-11 21:02 | CP.PCM.PN ---
Subjective - Date & Time of Evaluation Date of Evaluation: 01/11/17 Time of Evaluation: 10:55 - Subjective Subjective: Comfortable, less back pain, no fevers overnight. Objective - Vital Signs/Intake and Output Vital Signs (last 24 hours): Temp Pulse Resp BP Pulse Ox 97.8 F 110 H 21 164/93 H 97 01/11/17 08:24 01/11/17 08:24 01/11/17 08:24 01/11/17 08:24 01/11/17 08:24 - Medications Medications: Current Medications Alprazolam (Xanax) 0.25 mg PO TID PRN; Protocol PRN Reason: Anxiety Stop: 01/14/17 18:01 Last Admin: 01/10/17 21:50 Dose: 0.25 mg Aspirin (Aspirin Chewable) 81 mg PO DAILY [facility] Last Admin: 01/11/17 09:12 Dose: 81 mg Clopidogrel Bisulfate (Plavix) 75 mg PO DAILY [facility] Last Admin: 01/11/17 09:11 Dose: 75 mg Famotidine (Pepcid) 20 mg PO BID [facility] Last Admin: 01/11/17 09:11 Dose: 20 mg Vancomycin HCl (Vancomycin 1gm) 1 gm in 250 mls @ 167 mls/hr IVPB Q12H [facility] PRN Reason: Protocol Last Admin: 01/11/17 09:32 Dose: 167 mls/hr Isosorbide Mononitrate (Imdur) 60 mg PO DAILY [facility] Last Admin: 01/11/17 09:11 Dose: 60 mg Levalbuterol HCl (Xopenex) 0.63 mg IH E0LEXIT [facility] Last Admin: 01/11/17 09:14 Dose: 0.63 mg Levalbuterol HCl (Xopenex) 0.63 mg IH Q2 PRN PRN Reason: Shortness of Breath Lorazepam (Ativan) 0.5 mg PO HS PRN; Protocol PRN Reason: anxiety/insomnia Last Admin: 01/10/17 21:46 Dose: 0.5 mg Metoprolol Tartrate (Lopressor) 100 mg PO BRKDIN [facility] Last Admin: 01/11/17 08:30 Dose: 100 mg Prednisone (Prednisone Tab) 5 mg PO DAILY [facility] Last Admin: 01/11/17 09:11 Dose: 5 mg Quetiapine Fumarate (Seroquel) 25 mg PO HS [facility] PRN Reason: Protocol Last Admin: 01/10/17 21:47 Dose: 25 mg Tamsulosin HCl (Flomax) 0.4 mg PO DAILY [facility] Last Admin: 01/11/17 09:12 Dose: 0.4 mg Tramadol HCl (Ultram) 25 mg PO BID PRN PRN Reason: Pain, moderate (4-7) Last Admin: 01/10/17 05:06 Dose: 25 mg Ziprasidone (Geodon Inj) 10 mg IM Q12 PRN; Protocol PRN Reason: severe agitation Last Admin: 01/11/17 01:13 Dose: 10 mg - Labs Labs: 01/11/17 06:10 01/11/17 06:10 - Constitutional Appears: Non-toxic, No Acute Distress - Head Exam Head Exam: NORMAL INSPECTION - Neck Exam Neck Exam: absent: Meningismus - Respiratory Exam Respiratory Exam: Decreased Breath Sounds - Cardiovascular Exam Cardiovascular Exam: +S1, +S2 - GI/Abdominal Exam GI & Abdominal Exam: Soft. 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
--- NOTE | 2017-01-12 00:38 | CP.PCM.PN ---
Subjective - Date & Time of Evaluation Date of Evaluation: 01/12/17 Time of Evaluation: 00:34 - Subjective Subjective: Patient was seen at bedside. He is awake, alert. Mumbles something and wants to get out of bed. Medical record was reviewed. 86 year old white male was admitted with intractable pain in left lower abdomen and groin area. Has PMH of ASHD, multiple angioplasties, COPD, BPH, gastritis. Objective - Vital Signs/Intake and Output Vital Signs (last 24 hours): Temp Pulse Resp BP Pulse Ox 97.8 F 107 H 21 124/61 97 01/11/17 08:24 01/11/17 17:12 01/11/17 08:24 01/11/17 17:12 01/11/17 08:24 Intake and Output: 01/11/17 01/12/17 18:59 06:59 Intake Total 600 Balance 600 - Medications Medications: Current Medications Alprazolam (Xanax) 0.25 mg PO TID PRN; Protocol PRN Reason: Anxiety Stop: 01/14/17 18:01 Last Admin: 01/11/17 22:46 Dose: 0.25 mg Aspirin (Aspirin Chewable) [address] [facility] Last Admin: 01/11/17 09:12 Dose: 81 mg Clopidogrel Bisulfate (Plavix) [address] [facility] Last Admin: 01/11/17 09:11 Dose: 75 mg Famotidine (Pepcid) [address] [facility] Last Admin: 01/11/17 17:12 Dose: 20 mg Vancomycin HCl (Vancomycin 1gm) 1 gm in 250 mls @ 167 mls/hr IVPB Q12H [facility] PRN Reason: Protocol Last Admin: 01/11/17 23:09 Dose: Not Given Isosorbide Mononitrate (Imdur) [address] [facility] Last Admin: 01/11/17 09:11 Dose: 60 mg Levalbuterol HCl (Xopenex) 0.[id number] [facility] Last Admin: 01/11/17 19:56 Dose: 0.63 mg Levalbuterol HCl (Xopenex) 0.63 mg IH Q2 PRN PRN Reason: Shortness of Breath Lorazepam (Ativan) 0.5 mg PO HS PRN; Protocol PRN Reason: anxiety/insomnia Last Admin: 01/11/17 21:16 Dose: 0.5 mg Metoprolol Tartrate (Lopressor) [address] [facility] Last Admin: 01/11/17 17:12 Dose: 100 mg Prednisone (Prednisone Tab) [address] [facility] Last Admin: 01/11/17 09:11 Dose: 5 mg Quetiapine Fumarate (Seroquel) [address] [facility] PRN Reason: Protocol Last Admin: 01/11/17 21:16 Dose: 25 mg Tamsulosin HCl (Flomax) 0.[address] [facility] Last Admin: 01/11/17 09:12 Dose: 0.4 mg Tramadol HCl (Ultram) 25 mg PO BID PRN PRN Reason: Pain, moderate (4-7) Last Admin: 01/11/17 21:16 Dose: 25 mg Ziprasidone (Geodon Inj) 10 mg IM Q12 PRN; Protocol PRN Reason: severe agitation Last Admin: 01/11/17 23:51 Dose: 10 mg - Labs Labs: 01/11/17 06:10 01/11/17 06:10 - Constitutional Appears: Well, No Acute Distress - Head Exam Head Exam: ATRAUMATIC, NORMAL INSPECTION, NORMOCEPHALIC - ENT Exam ENT Exam: Normal External Ear Exam - Respiratory Exam Respiratory Exam: NORMAL BREATHING PATTERN - Cardiovascular Exam Cardiovascular Exam: absent: Diastolic murmur - GI/Abdominal Exam GI & Abdominal Exam: absent: Distended - Rectal Exam Rectal Exam: Deferred - Exam Additional comments: Deferred. - Extremities Exam Extremities Exam: Normal Inspection - Back Exam Back Exam: NORMAL INSPECTION - Neurological Exam Neurological Exam: Altered - Psychiatric Exam Psychiatric exam: Agitated - Skin Additional comments: Echymosis in forearm secondary to IV infiltrates. Assessment and Plan - Assessment and Plan (Free Text) Assessment: Agitation. COPD. Hx Multiple angioplasties. Hx ASHD. BPH. PUD. Plan: Geodon 20 mg IM Stat. Continue present management.
[2017-01-12] MEDS: Levalbuterol 0.63 MG/3 ML Inhal Soln UD IH SCH ×4 (01:08→19:42)
[2017-01-12] MEDS ORDERED: Amiodarone 150 mg/D5W 100 ml 150 MG/100 ML BAG IVPB ONE (02:52)
--- NOTE | 2017-01-12 03:08 | CP.PCM.PN ---
Subjective - Date & Time of Evaluation Date of Evaluation: 01/12/17 Time of Evaluation: 03:04 - Subjective Subjective: Responded to CODE BLUE announcement promptly. Patient had no pulse , no spontaneous brething. Intubated with siize 8 ETT promptly, position was confirmed with auscultation and Co2 detector . ACLS protocols were followed. Patient was resuscitated , transferred to CCU. CRTICAL CARE TIME SPENT:30 minutes. Objective - Vital Signs/Intake and Output Vital Signs (last 24 hours): Temp Pulse Resp BP Pulse Ox 97.8 F 107 H 21 124/61 97 01/11/17 08:24 01/11/17 17:12 01/11/17 08:24 01/11/17 17:12 01/11/17 08:24 Intake and Output: 01/11/17 01/12/17 18:59 06:59 Intake Total 600 Balance 600 - Medications Medications: Current Medications Alprazolam (Xanax) 0.25 mg PO TID PRN; Protocol PRN Reason: Anxiety Stop: 01/14/17 18:01 Last Admin: 01/11/17 22:46 Dose: 0.25 mg Aspirin (Aspirin Chewable) 81 mg PO DAILY [facility] Last Admin: 01/11/17 09:12 Dose: 81 mg Clopidogrel Bisulfate (Plavix) 75 mg PO DAILY [facility] Last Admin: 01/11/17 09:11 Dose: 75 mg Famotidine (Pepcid) 20 mg PO BID [facility] Last Admin: 01/11/17 17:12 Dose: 20 mg Vancomycin HCl (Vancomycin 1gm) 1 gm in 250 mls @ 167 mls/hr IVPB Q12H [facility] PRN Reason: Protocol Last Admin: 01/11/17 23:09 Dose: Not Given Isosorbide Mononitrate (Imdur) 60 mg PO DAILY [facility] Last Admin: 01/11/17 09:11 Dose: 60 mg Levalbuterol HCl (Xopenex) 0.63 mg IH [id number] [facility] Last Admin: 01/12/17 01:08 Dose: Not Given Levalbuterol HCl (Xopenex) 0.63 mg IH Q2 PRN PRN Reason: Shortness of Breath Lorazepam (Ativan) 0.5 mg PO HS PRN; Protocol PRN Reason: anxiety/insomnia Last Admin: 01/11/17 21:16 Dose: 0.5 mg Metoprolol Tartrate (Lopressor) 100 mg PO BRKDIN [facility] Last Admin: 01/11/17 17:12 Dose: 100 mg Prednisone (Prednisone Tab) 5 mg PO DAILY [facility] Last Admin: 01/11/17 09:11 Dose: 5 mg Quetiapine Fumarate (Seroquel) 25 mg PO HS [facility] PRN Reason: Protocol Last Admin: 01/11/17 21:16 Dose: 25 mg Tamsulosin HCl (Flomax) 0.4 mg PO DAILY [facility] Last Admin: 01/11/17 09:12 Dose: 0.4 mg Tramadol HCl (Ultram) 25 mg PO BID PRN PRN Reason: Pain, moderate (4-7) Last Admin: 01/11/17 21:16 Dose: 25 mg Ziprasidone (Geodon Inj) 10 mg IM Q12 PRN; Protocol PRN Reason: severe agitation Last Admin: 01/11/17 23:51 Dose: 10 mg - Labs Labs: 01/11/17 06:10 01/11/17 06:10
[2017-01-12 03:28] LABS: ARTERIAL BLOOD GAS HCO3 14.6 mmol/L (21-28); ARTERIAL BLOOD GAS PH 7.28 (7.35-7.45)
[2017-01-12] MEDS ORDERED: Amiodarone 360 mg/D5W 200 ml 360 MG/200 ML BAG IV SCH (03:30)
[2017-01-12] MEDS: Sodium Chloride 0.9% 1,000 ML IV SCH (04:17)
[2017-01-12 04:31] LABS: HEMATOCRIT 32.5 % (42.0-52.0); MEAN CELL VOLUME 96.7 fl (80.0-105.0); MEAN CORPUSCULAR HEMOGLOBIN 32.7 pg (25.0-35.0); MEAN CORPUSCULAR HGB CONC 33.8 g/dl (31.0-37.0); MEAN PLATELET VOLUME 10.7 fl (7.0-11.0); PLATELET COUNT 248 10^3/uL (120.0-450.0)
[2017-01-12 04:33] LABS: ALB/GLOB RATIO 0.9 (1.1-1.8); BILIRUBIN,TOTAL 0.8 mg/dL (0.2-1.3); CALCIUM 9.2 mg/dL (8.4-10.5); MAGNESIUM 1.8 mg/dL (1.7-2.2); PHOSPHOROUS 4.5 mg/dL (2.5-4.5); POTASSIUM 3.1 mmol/L (3.6-5.0); TOTAL PROTEIN 5.6 g/dL (5.8-8.3)
[2017-01-12 04:37] LABS: ADD MANUAL DIFF? YES; INR 1.27 (0.93-1.08); PARTIAL THROMBOPLASTIN TIME 32.7 Seconds (23.7-30.8)
[2017-01-12 04:39] LABS: WHITE BLOOD COUNT 76.3 10^3/ul (4.5-11.0)
[2017-01-12 04:48] LABS: TROPONIN I 0.74 ng/mL
[2017-01-12] MEDS ORDERED: Potassium Chloride 40 mEq/30 ml LIQ UD PO STA (05:30)
[2017-01-12 05:35] LABS: BAND 8 % (0-2); METAMYELOCYTE 3 %; NEUTROPHIL 68 % (50.0-70.0)
[2017-01-12 05:36] LABS: MYELOCYTE 7 %; PLATELET ESTIMATE NORMAL (NORMAL); PROMYELOCYTE 2 %
[2017-01-12 06:10] LABS: ARTERIAL BLOOD GAS HCO3 19.2 mmol/L (21-28); ARTERIAL BLOOD GAS O2 CAPACITY 13.7 mL/dl (16-24); ARTERIAL BLOOD GAS O2 CONTENT 13.7 ML/dl (15-23); ARTERIAL BLOOD HGB O2 SAT 95.5 % (95.0-98.0); CARBOXYHEMOGLOBIN 2.7 % (0.5-1.5); HHB 0.2 % (0-5); METHEMOGLOBIN 1.6 % (0.0-3.0)
--- NOTE | 2017-01-12 06:10 | CP.PCM.CON ---
<MaximilianoDenis - Last Filed: 01/12/17 06:18> History of Present Illness - History of Present Illness History of Present Illness: ICU Consult Note for Dr. Reed CC: S/p Gay Viera, Cardiac arrest with ROSC post CPR HPI: This is an 86 yo M with PMH of hemolytic anemia, CAD, COPD, CABG , hx of diverticulitis, gastritis, GERD, BPPH, and Asbestosis who was transferred to the ICU s/p cardiac arrest with ROSC. Patient found unresponsive and not breathing at 0233 by nursing, Gay Viera called. CPR was initiated and patient was intubated. Patient received 2x Epinephrine, 1x Calcium, 1x Sodium Bicarb, and 1x shock for V-fib rhythm before ROSC was obtained. Patient was then placed on a ventilator, and transported to ICU. Family and pt's PMD made aware. PMH: as above PSH: CABG aprox 4 years ago FHx: denies (per prior charting) SHx: former tobacco, denies EtOH/illicits (per charting) PMD: Dr. Pavon Review of Systems - Review of Systems Systems not reviewed;Unavailable: Acuity of Condition, Intubated Past Patient History - Infectious Disease Hx of Infectious Diseases: None - Tetanus Immunizations Tetanus Immunization: Unknown - Past Medical History & Family History Past Medical History?: Yes - Past Social History Smoking Status: Former Smoker - CARDIAC Hx Cardiac Disorders: Yes (CAD, ACS, CABG 3 vessels, [place]) Hx Congestive Heart Failure: Yes Hx Hypercholesterolemia: Yes Hx Hypertension: Yes - PULMONARY Hx Chronic Obstructive Pulmonary Disease (COPD): Yes - NEUROLOGICAL Hx Neurological Disorder: Yes Hx Dementia: Yes - HEENT Hx HEENT Problems: (WEARS RX GLASSES, [place]) - RENAL Hx Chronic Kidney Disease: No - ENDOCRINE/METABOLIC Hx Endocrine Disorders: No - HEMATOLOGICAL/ONCOLOGICAL Hx Blood Disorders: Yes (blood transfusion) Hx Anemia: Yes (hemolytic anemia) - INTEGUMENTARY Other/Comment: cells removed on body as per patient and , multiple skin, discolorations, nodules and dry patches of skin to arms and legs, multiple tatoos - MUSCULOSKELETAL/RHEUMATOLOGICAL Hx Arthritis: Yes - GASTROINTESTINAL Hx Gastrointestinal Disorders: Yes (GASTRITIS) Hx Diverticulitis: Yes Hx Gall Bladder Disease: Yes Hx Gastroesophageal Reflux: Yes - GENITOURINARY/GYNECOLOGICAL Hx Genitourinary Disorders: Yes (URINARY FREQUENCY) Hx Prostate Problems: Yes (BPH) Hx Urinary Tract Infection: Yes - PSYCHIATRIC Hx Anxiety: Yes Hx Emotional Abuse: No Hx Physical Abuse: No Hx Substance Use: No Other/Comment: pt becoming more agresive and disoriented at home - SURGICAL HISTORY Hx Cholecystectomy: Yes Hx Coronary Stent: Yes Hx Open Heart Surgery: Yes (3 vessel) Other/Comment: excision r hand lesion 07/2016, scalp lesion, 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, pt a hard stick - ANESTHESIA Hx Anesthesia: Yes Hx Anesthesia Reactions: No Hx Malignant Hyperthermia: No Meds Allergies/Adverse Reactions: Allergies Allergy/AdvReac Type Severity Reaction Status Date / Time No Known Allergies Allergy Verified 01/07/17 11:29 - Medications Medications: Current Medications Alprazolam (Xanax) 0.25 mg PO TID PRN; Protocol PRN Reason: Anxiety Stop: 01/14/17 18:01 Last Admin: 01/11/17 22:46 Dose: 0.25 mg Aspirin (Aspirin Chewable) 81 mg PO DAILY [facility] Last Admin: 01/11/17 09:12 Dose: 81 mg Clopidogrel Bisulfate (Plavix) 75 mg PO DAILY [facility] Last Admin: 01/11/17 09:11 Dose: 75 mg Vancomycin HCl (Vancomycin 1gm) 1 gm in 250 mls @ 167 mls/hr IVPB Q12H [facility] PRN Reason: Protocol Last Admin: 01/11/17 23:09 Dose: Not Given Sodium Chloride (Sodium Chloride 0.9%) 1,000 mls @ 100 mls/hr IV .Q10H [facility] Last Admin: 01/12/17 04:17 Dose: 100 mls/hr Amiodarone HCl/Dextrose (Nexterone 360 Mg In D5w 200 Ml (Premix)) 360 mg in 200 mls @ 33.333 mls/hr IV .Q6H YESSI; 1 MG/MIN PRN Reason: Protocol Stop: 01/12/17 09:30 Last Admin: 01/12/17 03:30 Dose: 33.333 mls/hr Potassium Chloride (Potassium Chloride 10 Meq/100 Ml) 10 meq in 100 mls @ 100 mls/hr IVPB Q2H [facility] Stop: 01/12/17 08:44 Last Admin: 01/12/17 05:45 Dose: 100 mls/hr Isosorbide Mononitrate (Imdur) 60 mg PO DAILY [facility] Last Admin: 01/11/17 09:11 Dose: 60 mg Levalbuterol HCl (Xopenex) 0.63 mg IH [id number] [facility] Last Admin: 01/12/17 01:08 Dose: Not Given Levalbuterol HCl (Xopenex) 0.63 mg IH Q2 PRN PRN Reason: Shortness of Breath Lorazepam (Ativan) 0.5 mg PO HS PRN; Protocol PRN Reason: anxiety/insomnia Last Admin: 01/11/17 21:16 Dose: 0.5 mg Metoprolol Tartrate (Lopressor) 100 mg PO BRKDIN [facility] Last Admin: 01/11/17 17:12 Dose: 100 mg Pantoprazole Sodium (Protonix Inj) 40 mg IVP DAILY [facility] Prednisone (Prednisone Tab) 5 mg PO DAILY [facility] Last Admin: 01/11/17 09:11 Dose: 5 mg Quetiapine Fumarate (Seroquel) 25 mg PO HS [facility] PRN Reason: Protocol Last Admin: 01/11/17 21:16 Dose: 25 mg Tamsulosin HCl (Flomax) 0.4 mg PO DAILY [facility] Last Admin: 01/11/17 09:12 Dose: 0.4 mg Tramadol HCl (Ultram) 25 mg PO BID PRN PRN Reason: Pain, moderate (4-7) Last Admin: 01/11/17 21:16 Dose: 25 mg Ziprasidone (Geodon Inj) 10 mg IM Q12 PRN; Protocol PRN Reason: severe agitation Last Admin: 01/11/17 23:51 Dose: 10 mg Physical Exam - Constitutional Appears: Toxic, In Acute Distress - Head Exam Head Exam: ATRAUMATIC, NORMOCEPHALIC - Eye Exam Eye Exam: absent: Conjunctival injection, EOMI, Normal appearance, PERRL, Scleral icterus Pupil Exam: absent: Irregular, Unequal Additional comments: pinpoint pupils - ENT Exam ENT Exam: Mucous Membranes Moist. absent: Normal Exam Additional comments: ETT and OGT in place - Neck Exam Neck exam: Negative for: Lymphadenopathy, Thyromegaly - Respiratory Exam Respiratory Exam: Decreased Breath Sounds, Rhonchi (diffusely in all fox). absent: Clear to Auscultation Bilateral, Wheezes, NORMAL BREATHING PATTERN - Cardiovascular Exam Cardiovascular Exam: Tachycardia, REGULAR RHYTHM, +S1, +S2. absent: Bradycardia , Irregular Rhythm, JVD, RRR, +S4 - GI/Abdominal Exam GI & Abdominal Exam: Hypoactive Bowel Sounds, Soft. absent: Diminished Bowel Sounds, Firm, Hyperactive Bowel Sounds, Normal Bowel Sounds, Rigid - Exam Additional comments: Araiza placed, outputing clear-yellow urine - Extremities Exam Extremities exam: Negative for: calf tenderness, pedal edema Additional comments: femoral pulses present and brisk bilaterally after ROSC - Neurological Exam Additional comments: Unresponsive, no spontaneous movements - Psychiatric Exam Additional comments: unable to assess, unresponsive - Skin Skin Exam: Dry, Intact, Normal Color, Warm Results - Vital Signs Recent Vital Signs: Last Vital Signs Temp 97.8 F 01/11/17 08:24 Pulse 107 H 01/11/17 17:12 Resp 21 01/11/17 08:24 BP 124/61 01/11/17 17:12 Pulse Ox 97 01/11/17 08:24 - Labs Result Diagrams: 01/12/17 04:00 01/12/17 04:00 Labs: Laboratory Results - last 24 hr 01/11/17 01/11/17 01/11/17 06:10 06:10 21:30 WBC 74.1 H* D RBC 4.01 Hgb 13.3 L Hct 39.1 L MCV 97.5 MCH 33.2 MCHC 34.0 RDW 16.1 H Plt Count 301 MPV 11.0 Neutrophils % (Manual) 76 H Band Neutrophils % Lymphocytes % (Manual) 9 L Monocytes % (Manual) 6 Metamyelocytes % 1 Myelocytes % 7 Promyelocytes % 1 Platelet Evaluation Normal PT INR APTT pCO2 pO2 HCO3 ABG pH ABG Total CO2 ABG O2 Saturation ABG Base Excess ABG Potassium Glucose Lactate FiO2 Sodium 141 Potassium 3.9 Chloride 107 Carbon Dioxide 18 L Anion Gap 20 BUN 24 H Creatinine 1.2 Est GFR ( Amer) > 60 Est GFR (Non-Af Amer) 58 Random Glucose 74 Calcium 9.0 Phosphorus Magnesium Total Bilirubin 0.9 AST 39 ALT 28 Alkaline Phosphatase 133 Total Creatine Kinase Troponin I Total Protein 7.8 Albumin 4.0 Globulin 3.9 Albumin/Globulin Ratio 1.0 L Arterial Blood Potassium Vancomycin Trough 21.5 H* 01/12/17 01/12/17 01/12/17 03:10 04:00 04:00 WBC 76.3 H* RBC 3.36 L Hgb 11.0 L D Hct 32.5 L MCV 96.7 MCH 32.7 MCHC 33.8 RDW 16.0 H Plt Count 248 MPV 10.7 Neutrophils % (Manual) 68 Band Neutrophils % 8 H Lymphocytes % (Manual) 5 L Monocytes % (Manual) 7 H Metamyelocytes % 3 Myelocytes % 7 Promyelocytes % 2 Platelet Evaluation Normal PT INR APTT pCO2 31 L pO2 269.0 H HCO3 14.6 L ABG pH 7.28 L ABG Total CO2 15.6 L ABG O2 Saturation 100.8 H ABG Base Excess -10.9 L ABG Potassium 2.9 L Glucose 171 H Lactate 4.9 H* FiO2 100.0 Sodium 142.0 142 Potassium 3.1 L Chloride 111.0 H 111 H Carbon Dioxide 20 L Anion Gap 14 BUN 21 Creatinine 1.4 Est GFR ( Amer) 58 Est GFR (Non-Af Amer) 48 Random Glucose 136 H Calcium 9.2 Phosphorus 4.5 Magnesium 1.8 Total Bilirubin 0.8 AST 273 H ALT 247 H Alkaline Phosphatase 109 Total Creatine Kinase 167 Troponin I 0.74 H* D Total Protein 5.6 L Albumin 2.6 L Globulin 2.9 Albumin/Globulin Ratio 0.9 L Arterial Blood Potassium 2.9 L Vancomycin Trough 01/12/17 04:00 WBC RBC Hgb Hct MCV MCH MCHC RDW Plt Count MPV Neutrophils % (Manual) Band Neutrophils % Lymphocytes % (Manual) Monocytes % (Manual) Metamyelocytes % Myelocytes % Promyelocytes % Platelet Evaluation PT 13.7 H INR 1.27 H APTT 32.7 H pCO2 pO2 HCO3 ABG pH ABG Total CO2 ABG O2 Saturation ABG Base Excess ABG Potassium Glucose Lactate FiO2 Sodium Potassium Chloride Carbon Dioxide Anion Gap BUN Creatinine Est GFR ( Amer) Est GFR (Non-Af Amer) Random Glucose Calcium Phosphorus Magnesium Total Bilirubin AST ALT Alkaline Phosphatase Total Creatine Kinase Troponin I Total Protein Albumin Globulin Albumin/Globulin Ratio Arterial Blood Potassium Vancomycin Trough Assessment & Plan - Assessment and Plan (Free Text) Assessment: This is an 86 yo M with PMH of hemolytic anemia, CAD, COPD, CABG, hx of diverticulitis, gastritis, GERD, BPPH, and Asbestosis who was transferred to the ICU s/p cardiac arrest with ROSC. Plan: Neuro: -Intubated but not sedated -Avoid any sedation, reassess in 48 hours to determine degree of neurological recovery -Maintain normothermia -Currently unresponsive to all physical and verbal stimuli off sedation, no spontaneous movements, no twitching, not currently posturing Cardio: -s/p cardiac arrest, ROSC after CPR, 2x epi, 1x shock, 1x calcium, 1x sodium bicarb -Given amiodarone bolus after ROSC, now on amiodarone drip -Continue ASA, plavix, imdur, metoprolol -Tachycardic post-code, now 80's in ICU -EKG in ICU notable for sinus rhythm, prolonged QTc at > 470 -maintain MAP > 65, no pressor support currently required -s/p 1L NS bolus, now on 100cc/hr -Trop 0.74, likely elevated 2/2 cardiac arrest and CPR Pulm: -Intubated and ventilated -ABG reviewed, Metabolic acidosis with Lactate 4.9, repeat ABG at 6am -Vent PRVC 40%/5/14/350 -CXR obtained, confirmed ETT placement -conservative O2 management, maintain SaO2 > 92% and paO2 > 60 -low tidal volumes, VAP bundle, protective lung ventilation strategy GI: -NPO -Protonix IVP for GI ppx -OGT placed for PO meds Renal: -Araiza placed, putting out moderate amount of clear yellow urine -Strict I's & O's -monitor and replete electrolytes as needed -maintain euglycemia and euvolemia Heme: -Hgb decreased from 13.3 to 11.0, likely dilutional component from saline boluses during and after code -no signs of active bleeding, continue to monitor ID: -remains leukocytotic, 76.3 -Lactate 4.9, likely 2/2 cardiac arrest -continue current abx regimen ordered by ID -maintain normothermia Dispo: ICU, intubated/vented off sedation, pending re-eval in 48 hours to assess neurological status FEN: NPO, NS 100cc/hr Access: Peripheral IV, ETT, OGT, Port-a-cath Consults: Cardio, Psych, Heme-onc, Ortho, ID, IR, Pulm Ppx: Protonix for GI, SCDs for DVT Code Status: Full code Patient seen, reviewed, discussed with attending, Dr. Reed. <Yang Reed - Last Filed: 01/12/17 07:03> Meds - Medications Medications: Current Medications Alprazolam (Xanax) 0.25 mg PO TID PRN; Protocol PRN Reason: Anxiety Stop: 01/14/17 18:01 Last Admin: 01/11/17 22:46 Dose: 0.25 mg Aspirin (Aspirin Chewable) 81 mg PO DAILY [facility] Last Admin: 01/11/17 09:12 Dose: 81 mg Clopidogrel Bisulfate (Plavix) 75 mg PO DAILY [facility] Last Admin: 01/11/17 09:11 Dose: 75 mg Vancomycin HCl (Vancomycin 1gm) 1 gm in 250 mls @ 167 mls/hr IVPB Q12H [facility] PRN Reason: Protocol Last Admin: 01/11/17 23:09 Dose: Not Given Sodium Chloride (Sodium Chloride 0.9%) 1,000 mls @ 100 mls/hr IV .Q10H [facility] Last Admin: 01/12/17 04:17 Dose: 100 mls/hr Amiodarone HCl/Dextrose (Nexterone 360 Mg In D5w 200 Ml (Premix)) 360 mg in 200 mls @ 33.333 mls/hr IV .Q6H [facility]; 1 MG/MIN PRN Reason: Protocol Stop: 01/12/17 09:30 Last Admin: 01/12/17 03:30 Dose: 33.333 mls/hr Potassium Chloride (Potassium Chloride 10 Meq/100 Ml) 10 meq in 100 mls @ 100 mls/hr IVPB Q2H [facility] Stop: 01/12/17 08:44 Last Admin: 01/12/17 05:45 Dose: 100 mls/hr Isosorbide Mononitrate (Imdur) 60 mg PO DAILY [facility] Last Admin: 01/11/17 09:11 Dose: 60 mg Levalbuterol HCl (Xopenex) 0.63 mg IH [id number] [facility] Last Admin: 01/12/17 01:08 Dose: Not Given Levalbuterol HCl (Xopenex) 0.63 mg IH Q2 PRN PRN Reason: Shortness of Breath Lorazepam (Ativan) 0.5 mg PO HS PRN; Protocol PRN Reason: anxiety/insomnia Last Admin: 01/11/17 21:16 Dose: 0.5 mg Metoprolol Tartrate (Lopressor) 100 mg PO BRKDIN [facility] Last Admin: 01/11/17 17:12 Dose: 100 mg Pantoprazole Sodium (Protonix Inj) 40 mg IVP DAILY [facility] Prednisone (Prednisone Tab) 5 mg PO DAILY [facility] Last Admin: 01/11/17 09:11 Dose: 5 mg Quetiapine Fumarate (Seroquel) 25 mg PO HS [facility] PRN Reason: Protocol Last Admin: 01/11/17 21:16 Dose: 25 mg Tamsulosin HCl (Flomax) 0.4 mg PO DAILY [facility] Last Admin: 01/11/17 09:12 Dose: 0.4 mg Tramadol HCl (Ultram) 25 mg PO BID PRN PRN Reason: Pain, moderate (4-7) Last Admin: 01/11/17 21:16 Dose: 25 mg Ziprasidone (Geodon Inj) 10 mg IM Q12 PRN; Protocol PRN Reason: severe agitation Last Admin: 01/11/17 23:51 Dose: 10 mg Results - Vital Signs Recent Vital Signs: Last Vital Signs Temp 97.8 F 01/11/17 08:24 Pulse 79 01/12/17 06:30 Resp 21 01/11/17 08:24 BP 127/57 L 01/12/17 06:30 Pulse Ox 100 01/12/17 06:30 - Labs Result Diagrams: 01/12/17 04:00 01/12/17 04:00 Labs: Laboratory Results - last 24 hr 01/11/17 01/11/17 01/12/17 06:10 21:30 03:10 WBC RBC Hgb Hct MCV MCH MCHC RDW Plt Count MPV Neutrophils % (Manual) 76 H Band Neutrophils % Lymphocytes % (Manual) 9 L Monocytes % (Manual) 6 Metamyelocytes % 1 Myelocytes % 7 Promyelocytes % 1 Platelet Evaluation Normal PT INR APTT pCO2 31 L pO2 269.0 H HCO3 14.6 L ABG pH 7.28 L ABG Total CO2 15.6 L ABG O2 Saturation 100.8 H ABG O2 Content ABG Base Excess -10.9 L ABG Hemoglobin ABG Carboxyhemoglobin POC ABG HHb (Measured) ABG Methemoglobin ABG O2 Capacity ABG Potassium 2.9 L Hgb O2 Saturation Sodium 142.0 Chloride 111.0 H Glucose 171 H Lactate 4.9 H* FiO2 100.0 Potassium Carbon Dioxide Anion Gap BUN Creatinine Est GFR ( Amer) Est GFR (Non-Af Amer) Random Glucose Calcium Phosphorus Magnesium Total Bilirubin AST ALT Alkaline Phosphatase Total Creatine Kinase Troponin I Total Protein Albumin Globulin Albumin/Globulin Ratio Arterial Blood Potassium 2.9 L Vancomycin Trough 21.5 H* 01/12/17 01/12/17 01/12/17 04:00 04:00 04:00 WBC 76.3 H* RBC 3.36 L Hgb 11.0 L D Hct 32.5 L MCV 96.7 MCH 32.7 MCHC 33.8 RDW 16.0 H Plt Count 248 MPV 10.7 Neutrophils % (Manual) 68 Band Neutrophils % 8 H Lymphocytes % (Manual) 5 L Monocytes % (Manual) 7 H Metamyelocytes % 3 Myelocytes % 7 Promyelocytes % 2 Platelet Evaluation Normal PT 13.7 H INR 1.27 H APTT 32.7 H pCO2 pO2 HCO3 ABG pH ABG Total CO2 ABG O2 Saturation ABG O2 Content ABG Base Excess ABG Hemoglobin ABG Carboxyhemoglobin POC ABG HHb (Measured) ABG Methemoglobin ABG O2 Capacity ABG Potassium Hgb O2 Saturation Sodium 142 Chloride 111 H Glucose Lactate FiO2 Potassium 3.1 L Carbon Dioxide 20 L Anion Gap 14 BUN 21 Creatinine 1.4 Est GFR ( Amer) 58 Est GFR (Non-Af Amer) 48 Random Glucose 136 H Calcium 9.2 Phosphorus 4.5 Magnesium 1.8 Total Bilirubin 0.8 AST 273 H ALT 247 H Alkaline Phosphatase 109 Total Creatine Kinase 167 Troponin I 0.74 H* D Total Protein 5.6 L Albumin 2.6 L Globulin 2.9 Albumin/Globulin Ratio 0.9 L Arterial Blood Potassium Vancomycin Trough 01/12/17 06:00 WBC RBC Hgb Hct MCV MCH MCHC RDW Plt Count MPV Neutrophils % (Manual) Band Neutrophils % Lymphocytes % (Manual) Monocytes % (Manual) Metamyelocytes % Myelocytes % Promyelocytes % Platelet Evaluation PT INR APTT pCO2 31 L pO2 85.0 HCO3 19.2 L ABG pH 7.40 ABG Total CO2 20.2 L ABG O2 Saturation 99.8 H ABG O2 Content 13.7 L ABG Base Excess -4.8 L ABG Hemoglobin 10.1 L ABG Carboxyhemoglobin 2.7 H POC ABG HHb (Measured) 0.2 ABG Methemoglobin 1.6 ABG O2 Capacity 13.7 L ABG Potassium Hgb O2 Saturation 95.5 Sodium Chloride Glucose Lactate FiO2 60.0 Potassium Carbon Dioxide Anion Gap BUN Creatinine Est GFR ( Amer) Est GFR (Non-Af Amer) Random Glucose Calcium Phosphorus Magnesium Total Bilirubin AST ALT Alkaline Phosphatase Total Creatine Kinase Troponin I Total Protein Albumin Globulin Albumin/Globulin Ratio Arterial Blood Potassium Vancomycin Trough Attending/Attestation - Attestation I have personally seen and examined this patient.: Yes I have fully participated in the care of the patient.: Yes I have reviewed all pertinent clinical information: Yes Notes (Text): 01/12/17 07:00 I agree with the above mentioned note and exam by the resident with the addition of the followin86 y/o male with a PMHx as listed above was admitted a few days earlier for back pain and found to have T12 edema; concern for abscess? Overnight patient underwent code blue with pulseless arrest; ACLS initiated and patient resuscitated successfully. Will continue to manage him in the ICU; obtain head CT to assess and rule out CVA once he is stabilized. labs and images reviewed thus far personally case discussed with Dr. Amaya; endorsed to Dr. Adamson Total time of care: 55 minutes
[2017-01-12 07:27] LABS: VENOUS BLOOD GAS BASE EXCESS -3.3 mmol/L (0.0-2.0); VENOUS BLOOD PH 7.35 (7.32-7.43)
[2017-01-12] MEDS ORDERED: DAPTOmycin 500 mg Inj (Cubicin) IV SCH (07:45)
[2017-01-12] MEDS: Amiodarone 360 mg/D5W 200 ml 360 MG/200 ML BAG IV SCH ×2 (09:11→22:37)
[2017-01-12] MEDS: DAPTOmycin 510 MG in Sodium Chloride 0.9% 100 ML IV SCH (09:40)
--- NOTE | 2017-01-12 11:04 | PN ---
CARVER HAND NOTE DATE: 01/12/2017 SUBJECTIVE: The patient is unresponsive on the ventilator and FiO2 is 60%. The patient is post CPR and at this time, he is hemodynamically stable. PHYSICAL EXAMINATION: VITAL SIGNS: Note that his temperature is 98.4, pulse is 81, respirations 14, and BP is 120/58. HEENT: Head is atraumatic and normocephalic. Eyes, very sluggishly reactive to light. Ears, nose, and throat seem to be within normal limits. NECK: Supple. No JVD, no thyroid enlargement, no lymph nodes. HEART: Has regular rate and rhythm. Normal S1 and S2. LUNGS: Reveal rare rhonchi at the bases. ABDOMEN: Soft. Decreased bowel sounds. GENITALIA AND RECTAL: Deferred. MUSCULOSKELETAL: No joint deformities. EXTREMITIES: Reveal trace edema. NEUROLOGIC: Neurologically, patient is unresponsive on the ventilator. LABORATORY DATA: Laboratories reveal a white count of 76.3, hemoglobin is 11.0, hematocrit 32.5 with platelets of 248,000. Arterial blood gas reveals pH of 7.40, pCO2 of 31, pO2 of 85. Sodium is 143, potassium 3.1, chloride 111, CO2 of 20 with a BUN of 21, creatinine of 1.4, and a glucose of 136. Troponin is 0.74, but this is post CPR. Chest x-ray reveals unofficial reading of bilateral infiltrates. IMPRESSION: This patient has cardiac arrest requiring cardiopulmonary resuscitation and at this point is unresponsive requiring a ventilator support. The patient has a history of coronary artery disease, anemia, chronic obstructive pulmonary disease, coronary artery bypass graft, diverticulosis, gastritis, gastroesophageal reflux disease as well as benign prostatic hyperplasia and a history of asbestosis. PLAN: As far as our plan, we will continue with IV amiodarone, patient is on ventilator of FiO2 of 60%, and we will decrease the FiO2 as tolerated. Continue with aggressive pulmonary toilet. Follow chest x-ray and arterial blood gas. Patient is getting aspirin and we will continue Plavix. He is on IV fluids and getting Xopenex as a bronchodilator. We will continue to follow closely and treat aggressively along with the consultants and the primary care doctor. Yang Adamson MD
--- NOTE | 2017-01-12 11:59 | RAD ---
HISTORY: s/p intubation and code blue COMPARISON: 01/07/2017 FINDINGS: LUNGS: No significant interval change compared to the prior examination(s). PLEURA: Calcified pleural plaques consistent with prior asbestos exposure. CARDIOVASCULAR: No radiographic findings to suggest acute or significant cardiovascular disease. Venous access catheter in stable, satisfactory position. OSSEOUS STRUCTURES: No significant abnormalities. VISUALIZED UPPER ABDOMEN: Normal. OTHER FINDINGS: Satisfactory position of recently placed endotracheal tube. IMPRESSION: No acute pulmonary findings. Satisfactory position of endotracheal tube. Overall no significant interval change.
--- NOTE | 2017-01-12 12:01 | RAD ---
HISTORY: Repositioned endotracheal tube. Technique: Portable study performed @ 03:01. COMPARISON: January 12, 2017. 02:57. 08/30/2016. FINDINGS: LUNGS: No active pulmonary disease. PLEURA: Calcified pleural plaques consistent with prior asbestos exposure without interval change. CARDIOVASCULAR: No radiographic findings to suggest acute or significant cardiovascular disease. Venous access catheter in stable, satisfactory position. OSSEOUS STRUCTURES: No significant abnormalities. VISUALIZED UPPER ABDOMEN: Normal. OTHER FINDINGS: Endotracheal tube tip at the level of the clavicles. IMPRESSION: No active pulmonary disease. No acute findings. Endotracheal tube tip at the level of the clavicles.
[2017-01-12 12:10] LABS: VENOUS BLOOD GAS BASE EXCESS -6.3 mmol/L (0.0-2.0)
--- NOTE | 2017-01-12 12:41 | CT ---
PROCEDURE: CT HEAD WITHOUT CONTRAST. HISTORY: Altered mental status COMPARISON: 01/07/2017 CT head TECHNIQUE: Axial computed tomography images were obtained through the head/brain without intravenous contrast. Radiation dose: Total exam DLP = 774.23 mGy-cm. This CT exam was performed using one or more of the following dose reduction techniques: Automated exposure control, adjustment of the mA and/or kV according to patient size, and/or use of iterative reconstruction technique. FINDINGS: HEMORRHAGE: No intracranial hemorrhage. BRAIN: No mass effect or edema. Cortical atrophy, periventricular small vessel disease VENTRICLES: Unremarkable. No hydrocephalus. CALVARIUM: Unremarkable. PARANASAL SINUSES: Unremarkable as visualized. No significant inflammatory changes. MASTOID AIR CELLS: Unremarkable as visualized. No inflammatory changes. OTHER FINDINGS: Incompletely visualized endotracheal tube. IMPRESSION: No acute intracranial abnormalities. No significant findings to account for the clinical presentation. No significant interval change compared to the prior examination(s).
[2017-01-12 13:15] LABS: PH,URINE 5.5 (4.7-8.0); URINE BILIRUBIN SMALL (NEGATIVE); URINE BLOOD LARGE (NEGATIVE); URINE GLUCOSE (UA) NEGATIVE (NEGATIVE); URINE KETONE TRACE mg/dL (NEGATIVE); URINE LEUKOCYTE ESTERASE SMALL Leu/uL (NEGATIVE); URINE PROTEIN 100 mg/dL (<30 mg/dL)
[2017-01-12 13:22] LABS: URINE APPEARANCE SLIGHT-CLOUDY (CLEAR); URINE COLOR AMBER (YELLOW)
[2017-01-12 13:38] LABS: URINE RBC 25 - 30 /hpf (0-2)
[2017-01-12 13:39] LABS: URINE AMORPHOUS SEDIMENT MODERATE
--- NOTE | 2017-01-12 13:50 | CARD ---
APPROVED REPORT EKG Measurement Heart [id number] <Conclusion> Normal sinus rhythm Possible Left atrial enlargement Incomplete right bundle branch block ST & T wave abnormality, consider anterolateral ischemia Prolonged QT Abnormal ECG
--- NOTE | 2017-01-12 14:12 | CP.PCM.PN ---
Subjective - Date & Time of Evaluation Date of Evaluation: 01/12/17 Time of Evaluation: 09:30 - Subjective Subjective: Noted patient to have suffered from a sudden cardiac arrest. Patient was resuscitated and is currently intubated and on the ventilator. No fevers developed. Objective - Vital Signs/Intake and Output Vital Signs (last 24 hours): Temp Pulse Resp BP Pulse Ox 98.4 F 79 21 127/57 L 100 01/12/17 06:00 01/12/17 06:30 01/11/17 08:24 01/12/17 06:30 01/12/17 06:30 Intake and Output: 01/12/17 01/12/17 06:59 18:59 Intake Total 1420 Output Total 500 Balance 920 - Medications Medications: Current Medications Alprazolam (Xanax) 0.25 mg PO TID PRN; Protocol PRN Reason: Anxiety Stop: 01/14/17 18:01 Last Admin: 01/11/17 22:46 Dose: 0.25 mg Aspirin (Aspirin Chewable) 81 mg PO DAILY [facility]ESS[facility] Last Admin: 01/11/17 09:12 Dose: 81 mg Clopidogrel Bisulfate (Plavix) 75 mg PO DAILY [facility] Last Admin: 01/11/17 09:11 Dose: 75 mg Vancomycin HCl (Vancomycin 1gm) 1 gm in 250 mls @ 167 mls/hr IVPB Q12H [facility]ESS[facility] PRN Reason: Protocol Last Admin: 01/11/17 23:09 Dose: Not Given Sodium Chloride (Sodium Chloride 0.9%) 1,000 mls @ 100 mls/hr IV .Q10H YESSI Last Admin: 01/12/17 04:17 Dose: 100 mls/hr Amiodarone HCl/Dextrose (Nexterone 360 Mg In D5w 200 Ml (Premix)) 360 mg in 200 mls @ 33.333 mls/hr IV .Q6H YESSI; 1 MG/MIN PRN Reason: Protocol Stop: 01/12/17 09:30 Last Admin: 01/12/17 03:30 Dose: 33.333 mls/hr Potassium Chloride (Potassium Chloride 10 Meq/100 Ml) 10 meq in 100 mls @ 100 mls/hr IVPB Q2H YESSI Stop: 01/12/17 08:44 Last Admin: 01/12/17 05:45 Dose: 100 mls/hr Isosorbide Mononitrate (Imdur) 60 mg PO DAILY [facility] Last Admin: 01/11/17 09:11 Dose: 60 mg Levalbuterol HCl (Xopenex) 0.63 mg IH [id number] [facility] Last Admin: 01/12/17 01:08 Dose: Not Given Levalbuterol HCl (Xopenex) 0.63 mg IH Q2 PRN PRN Reason: Shortness of Breath Lorazepam (Ativan) 0.5 mg PO HS PRN; Protocol PRN Reason: anxiety/insomnia Last Admin: 01/11/17 21:16 Dose: 0.5 mg Metoprolol Tartrate (Lopressor) 100 mg PO BRKDIN [facility] Last Admin: 01/11/17 17:12 Dose: 100 mg Pantoprazole Sodium (Protonix Inj) 40 mg IVP DAILY [facility] Prednisone (Prednisone Tab) 5 mg PO DAILY [facility] Last Admin: 01/11/17 09:11 Dose: 5 mg Quetiapine Fumarate (Seroquel) 25 mg PO HS [facility] PRN Reason: Protocol Last Admin: 01/11/17 21:16 Dose: 25 mg Tamsulosin HCl (Flomax) 0.4 mg PO DAILY [facility] Last Admin: 01/11/17 09:12 Dose: 0.4 mg Tramadol HCl (Ultram) 25 mg PO BID PRN PRN Reason: Pain, moderate (4-7) Last Admin: 01/11/17 21:16 Dose: 25 mg Ziprasidone (Geodon Inj) 10 mg IM Q12 PRN; Protocol PRN Reason: severe agitation Last Admin: 01/11/17 23:51 Dose: 10 mg - Labs Labs: 01/12/17 04:00 01/12/17 04:00 PT 13.7 Seconds (9.9-11.8) H 01/12/17 04:00 INR 1.27 (0.93-1.08) H 01/12/17 04:00 APTT 32.7 Seconds (23.7-30.8) H 01/12/17 04:00 - Constitutional Appears: Other (Intubated, minimally responsive) - Head Exam Head Exam: NORMAL INSPECTION - ENT Exam Additional comments: ET tube in place - Neck Exam Neck Exam: absent: Lymphadenopathy, Meningismus - Respiratory Exam Respiratory Exam: Decreased Breath Sounds - Cardiovascular Exam Cardiovascular Exam: +S1, +S2 - GI/Abdominal Exam GI & Abdominal Exam: Soft. 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
--- NOTE | 2017-01-12 14:27 | PN ---
DATE: SUBJECTIVE: The patient is seen in the ICU. The patient is in room 128, bed 7. The patient was transferred from the third floor after having cardiac arrest last night. The patient had resuscitation and the patient was intubated. The patient's underlying condition, the patient has sepsis, the patient has history of fracture of the thoracic vertebra 12. The patient has acute pain involving that area. The patient had a past history of coronary artery disease, multiple angioplasties. The patient has severe chronic obstructive lung disease associated with multiple diffuse asbestosis lesions in both lungs. The patient has history of prostate enlargement and prostatic disease. The patient has a history of constipation and altered mental state with dementia. The patient was restless and has been seen by psychiatrist on this admission. Dr. Juju Boyle from the psychiatric unit saw the patient. She had placed the patient on medications for p.r.n. dosing Geodon 10 mg to be given q.12 hours. The patient also was on Seroquel 25 mg at bedtime, Xanax 0.25 mg t.i.d. p.r.n. for anxiety and agitation. The patient's other medications consist of vancomycin 1 g q.12 hours. The patient is on prednisone 5 mg daily, Plavix 75 mg daily, and amiodarone was given, that is the medication that the patient has had, status post cardiac arrest. The patient is on metoprolol 100 mg b.i.d., isosorbide mononitrate 60 mg daily, Flomax 0.4 mg daily, and daptomycin q.24 hours, aspirin 81 mg. The patient at this time appears to be unresponsive, but he does move. Respirations are maintained by respirator. All of the medications will be administered via IV method. Family is in the ICU waiting room and I discussed the patient's situation and condition with them. We will follow up with the maintenance job titles and will have a neurologist also evaluate the patient tomorrow morning. In the meantime, the patient's condition remains very critical at this time. David Pavon MD MTDD
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
[2017-01-12] MEDS ORDERED: Iodixanol 320 MG/ML 100 ML BOTTLE IV ONE (17:05)
--- NOTE | 2017-01-12 20:23 | PN ---
DATE: 01/11/2017 SUBJECTIVE: This is an 86-year-old male who has been followed by us for significant hemolytic anemia and now leukocytosis upon admission it appears to be a leukemoid reaction. His post cytometric analysis has been negative. The patient has been followed for the same for the last 2 years, has been on IV gamma-globin more currently on prednisone, which has been tapered to 5 mg. The patient has significant cardiac history, status post stents and antiplatelet agents including Plavix and aspirin. The patient has a result of his medications has developed a papery skin with multiple skin changes with petechiae and ulcerations, history of peptic ulcer disease, history of asbestos exposure, history of chronic obstructive pulmonary disease and he is admitted now with worsening pain in the left side radiating anteriorly secondary to an acute fracture at T12 with marrow edema seen on the MRI consistent with osteoporotic compression fracture related to his chronic prednisone therapy. The patient may benefit from a kyphoplasty but because of his dementia, will have to wait to see whether it is really worth pushing it, unless we want to see ,if he becomes more mobile and the pain increases as he has been laying in bed most of the time. PHYSICAL EXAMINATION VITAL SIGNS: Stable. Pulse is 86, T-max is 98.4, blood pressure is 123/69. HEENT: Head is normocephalic and atraumatic. Conjunctiva pale. Sclera is anicteric. Pupils are equally reactive to light and accommodation. Examination of the oropharynx, there is no oropharyngeal lesions. NECK: Supple. There is no adenopathy. No jugular venous distention is noted. LUNGS: Reveals bilateral crepitations and rhonchi. HEART: With S1 and S2 to be normal. No gallop or murmur is noted. ABDOMEN: Soft, mildly protuberant. Liver and spleen are not palpable. The patient has some tenderness in the left lower quadrant on deeper palpation. CENTRAL NERVOUS SYSTEM: The patient is conscious and alert, but definitely has cognitive issues. The patient is able to walk, but he staggers with a tendency to fall. LABORATORY DATA: Reveals a white count of 74,000, platelet count is 301. Chemistries are normal. The patient's random sugar is 74. ASSESSMENT NOTES AND PLAN: The patient has hemolytic anemia in the background history of significant coronary artery disease with multiple stents to be exact along with that the patient is on antiplatelet therapy, has hemolytic anemia, chronic obstructive pulmonary disease and now new onset of pain in the left side, most likely related to the compression fracture. We Will have to wait and watch and see which direction to go as far as more aggressive management is concern as the patient needs to be more functional and kyphoplasty may be in order. Overall prognosis of the patient given all these comorbid issues it seems that may be too much for him at this juncture. I speak to the family about his overall prognosis. The patient is continuously on the medications and plan is to see whether any other medicine could be added to his regimen at this time. As far as his white count is concern, I reviewed the full cytometric analysis report this is most likely a leukemoid reaction, nothing is warranted at this time as far as the white count is concern. Routine post exam instructions have been given to the patient. Rowdy Walton MD
--- NOTE | 2017-01-12 23:46 | PN ---
The patient is in ICU/CCU, bed 7. The patient was transferred to the CCU early this morning as he had become nonresponsive and had a cardiac standstill. The patient was resuscitated and was transferred to the unit after being intubated. The patient is currently unresponsive, on a ventilator with FiO2 of 60%. The patient is post CPR, and is hemodynamically stable. BACKGROUND HISTORY: The has significant coronary artery disease, status post 6 stents, on multiple medications, and has been on aspirin and Plavix. The patient also has history of hemolytic anemia, very significant and severe, received IV gammaglobulin last over a period of 1 year intermittently along with that he had prednisone which has been gradually tapered down to 5 mg daily, has history of asbestos exposure, COPD, emphysema, who now was admitted to the hospital with increasing pain on the left side of his chest related to compression fracture at T12, new onset, and now has gotten a complete cardiac arrest. Prognosis appears to be grim. PHYSICAL EXAMINATION VITAL SIGNS: T-max is 98.4, heart rate is 81, respirations 14, blood pressure 120/58. HEENT: Head is normocephalic, atraumatic. Eyes are sluggishly reactive to light. ENT examination appears to be within normal limits. NECK: Supple. There is no adenopathy. No jugular venous distention noted. CARDIOVASCULAR: Examination of the heart reveals the rate and rhythm to be normal with S1 and S2 to be normal. LUNGS: Reveals rare rhonchi at the bases. ABDOMEN: Soft with decreased bowel sounds. GENITALIA: Deferred. RECTAL: Deferred. MUSCULOSKELETAL: No joint deformities. EXTREMITIES: Reveals trace pedal edema. No cyanosis or clubbing is noted. NEUROLOGIC: The patient is unresponsive, could not be assessed on the ventilator. LABORATORY DATA: Reveals a white count of 76.3, smear reviewed, and flow cytometric analysis consistent with leukemoid reaction. Hemoglobin is 11, hematocrit 32.5, platelet count 248,000. ABG reveals a pH of 7.40, PCO2 of 31, PO2 of 85, sodium 143, potassium is 3.1, chloride 111, CO2 of 20 with a BUN of 21, creatinine 1.4, glucose is 136. Troponin is 0.74 post CPR. Chest x-ray reveals bilateral infiltrates. ASSESSMENT NOTES AND PLAN: The patient has history of hemolytic anemia in the background history of significant coronary artery disease, status post 6 stents, chronic obstructive pulmonary disease, exposure to asbestos, emphysema, now status post cardiac arrest. In this history, we will continue current management. The patient being monitored by the defense analyst and PMD. We will follow the patient peripherally and make appropriate recommendations as far as his hemoglobin and hematocrit status is concerned. The patient currently is on IV amiodarone with the ventilator FiO2 of 60%, and it is going to be tapered as tolerated. The patient has upper aggressive pulmonary toilet. We will speak to the family regarding the overall prognosis. Rowdy Walton MD
[2017-01-13] MEDS: Levalbuterol 0.63 MG/3 ML Inhal Soln UD IH SCH ×3 (02:20→13:39)
[2017-01-13] MEDS: Sodium Chloride 0.9% 1,000 ML IV SCH ×2 (05:03→15:03)
[2017-01-13 05:47] LABS: ARTERIAL BLOOD GAS HCO3 16.7 mmol/L (21-28); ARTERIAL BLOOD GAS PH 7.45 (7.35-7.45)
[2017-01-13 06:03] LABS: HEMATOCRIT 35.2 % (42.0-52.0); MEAN CORPUSCULAR HEMOGLOBIN 33.1 pg (25.0-35.0); MEAN CORPUSCULAR HGB CONC 34.1 g/dl (31.0-37.0); MEAN PLATELET VOLUME 11.3 fl (7.0-11.0); PLATELET COUNT 282 10^3/uL (120.0-450.0); RED CELL DISTRIBUTION WIDTH 16.5 % (11.5-14.5)
[2017-01-13] MEDS ORDERED: Metoprolol 1 mg/ml Inj IVP ONE ×3 (06:04→09:07)
[2017-01-13] MEDS ORDERED: Midazolam 2 MG/2 ML VIAL IVP ONE (06:13)
[2017-01-13 06:22] LABS: ADD MANUAL DIFF? YES; WHITE BLOOD COUNT 86.9 10^3/ul (4.5-11.0)
[2017-01-13 06:38] LABS: ALB/GLOB RATIO 0.9 (1.1-1.8); CALCIUM 8.5 mg/dL (8.4-10.5); POTASSIUM 3.8 mmol/L (3.6-5.0); TOTAL PROTEIN 6.4 g/dL (5.8-8.3)
[2017-01-13 07:08] LABS: BAND 5 % (0-2); METAMYELOCYTE 1 %; MYELOCYTE 12 %; NEUTROPHIL 63 % (50.0-70.0); PLATELET ESTIMATE NORMAL (NORMAL)
[2017-01-13] MEDS ORDERED: NOREPINEPHRINE BIT/0.9 % NACL 4 MG/250 ML BAG IV PRN (08:00)
[2017-01-13] MEDS ORDERED: diltiaZEM IVPB 100mg in NS 100 ML IV PRN ×2 (09:07→13:47)
[2017-01-13] MEDS: Amiodarone 360 mg/D5W 200 ml 360 MG/200 ML BAG IV SCH ×2 (09:29→22:03)
--- NOTE | 2017-01-13 09:53 | MRI ---
PROCEDURE: Magnetic Resonance Angiography Brain HISTORY: stroke COMPARISON: None available. TECHNIQUE: 3D time of flight MR angiography of the intracranial arteries was performed. Rotating maximum intensity projection images were generated. FINDINGS: INTERNAL CEREBRAL ARTERIES: Unremarkable. The skull base, petrous, cavernous and supraclinoid segments are bilaterally widely patient. ANTERIOR CEREBRAL ARTERIES: Unremarkable. A1 and A2 segments are widely patent. Smaller distal branches unremarkable, as visualized. MIDDLE CEREBRAL ARTERIES: Unremarkable. M1 and M2 segments are widely patent. Perisylvian branches grossly symmetric. POSTERIOR CIRCULATION: Basilar Artery: Unremarkable. Distal Vertebral Arteries: Unremarkable. Posterior Cerebral Arteries: Unremarkable. Posterior Inferior Cerebellar Arteries: Unremarkable. ANEURYSM/ VASCULAR MALFORMATIONS: None. OTHER FINDINGS: The report concurs with the preliminary [facility] report IMPRESSION: Unremarkable MR angiography of the brain.
--- NOTE | 2017-01-13 09:54 | MRI ---
PROCEDURE: MRI BRAIN WITHOUT CONTRAST HISTORY: hypoxic brain injury, possible stroke COMPARISON: None. TECHNIQUE: Multiplanar, multisequence MR images of the brain were obtained without intravenous contrast enhancement. FINDINGS: HEMORRHAGE: None DWI: No evidence of an acute or early subacute infarction. BRAIN PARENCHYMA: No mass effect or edema. Chronic microvascular changes are seen in the periventricular white matter. Mild atrophy VENTRICLES: Unremarkable. No hydrocephalus. CRANIUM: Unremarkable. ORBITS: Grossly unremarkable. PARANASAL SINUSES/MASTOIDS: There is fluid opacification of the right mastoids VASCULAR SYSTEM: Skull base flow voids intact. OTHER FINDINGS: The report concurs with the preliminary [facility] report IMPRESSION: No acute intracranial findings. Right-sided mastoiditis
--- NOTE | 2017-01-13 09:57 | MRI ---
PROCEDURE: MR Angiography of the neck without contrast HISTORY: stroke COMPARISON: None available. TECHNIQUE: 3D [id number] angiography of the neck was performed. Rotating maximum intensity projection images of the cervical carotid and vertebral arteries were generated. The origins of the common carotid arteries were not visualized, which is a limitation inherent to the non-contrast time of flight technique. Study is limited due to motion artifact FINDINGS: RIGHT CAROTID ARTERIES: No significant stenosis LEFT CAROTID ARTERIES: No significant stenosis VERTEBRAL ARTERIES: Right Vertebral Artery: Normal. Left Vertebral Artery: Normal. OTHER FINDINGS: None. IMPRESSION: Limited study. No significant stenosis
[2017-01-13] MEDS: Dexmedetomidine HCl 4mcg/ml 400 MCG/100 ML BOTTLE IV PRN ×3 (10:02→21:53)
[2017-01-13] MEDS ORDERED: Labetalol 5 mg/ml Inj 20ML IV PRN (10:11)
--- NOTE | 2017-01-13 10:19 | CP.PCM.PN ---
Subjective - Date & Time of Evaluation Date of Evaluation: 01/13/17 Time of Evaluation: 09:40 - Subjective Subjective: Patient continues to be on the ventilator, no fevers overnight. Objective - Vital Signs/Intake and Output Vital Signs (last 24 hours): Temp Pulse Resp BP Pulse Ox 98.9 F 99 H 28 H 145/63 98 01/12/17 15:55 01/13/17 03:10 01/12/17 23:00 01/13/17 03:00 01/13/17 03:10 Intake and Output: 01/12/17 01/13/17 18:59 06:59 Intake Total 2876 Output Total 800 Balance 2076 - Medications Medications: Current Medications Alprazolam (Xanax) 0.25 mg PO TID PRN; Protocol PRN Reason: Anxiety Stop: 01/14/17 18:01 Last Admin: 01/11/17 22:46 Dose: 0.25 mg Aspirin (Aspirin Chewable) 81 mg PO DAILY [facility] Last Admin: 01/12/17 09:19 Dose: 81 mg Clopidogrel Bisulfate (Plavix) 75 mg PO DAILY [facility] Last Admin: 01/12/17 09:19 Dose: 75 mg Vancomycin HCl (Vancomycin 1gm) 1 gm in 250 mls @ 167 mls/hr IVPB Q12H YESSI PRN Reason: Protocol Last Admin: 01/11/17 23:09 Dose: Not Given Sodium Chloride (Sodium Chloride 0.9%) 1,000 mls @ 100 mls/hr IV .Q10H [facility] Last Admin: 01/13/17 05:03 Dose: 100 mls/hr Daptomycin 510 mg/ Sodium (Chloride) 100 mls @ 100 mls/hr IV Q24H YESSI Stop: 01/17/17 10:01 Last Admin: 01/12/17 09:40 Dose: 100 mls/hr Amiodarone HCl/Dextrose (Nexterone 360 Mg In D5w 200 Ml (Premix)) 360 mg in 200 mls @ 16.667 mls/hr IV .Q12H YESSI; 0.5 MG/MIN PRN Reason: Protocol Last Admin: 01/12/17 22:37 Dose: 16.667 mls/hr Isosorbide Mononitrate (Imdur) 60 mg PO DAILY [facility] Last Admin: 01/12/17 09:23 Dose: 60 mg Levalbuterol HCl (Xopenex) 0.63 mg IH [id number] [facility] Last Admin: 01/13/17 02:20 Dose: 0.63 mg Levalbuterol HCl (Xopenex) 0.63 mg IH Q2 PRN PRN Reason: Shortness of Breath Lorazepam (Ativan) 0.5 mg PO HS PRN; Protocol PRN Reason: anxiety/insomnia Last Admin: 01/11/17 21:16 Dose: 0.5 mg Metoprolol Tartrate (Lopressor) 100 mg PO BRKDIN [facility] Last Admin: 01/12/17 19:41 Dose: 100 mg Pantoprazole Sodium (Protonix Inj) 40 mg IVP DAILY [facility] Last Admin: 01/12/17 09:19 Dose: 40 mg Prednisone (Prednisone Tab) 5 mg PO DAILY [facility] Last Admin: 01/12/17 09:19 Dose: 5 mg Quetiapine Fumarate (Seroquel) 25 mg PO HS YESSI PRN Reason: Protocol Last Admin: 01/12/17 22:30 Dose: Not Given Tamsulosin HCl (Flomax) 0.4 mg PO DAILY [facility] Last Admin: 01/12/17 09:19 Dose: 0.4 mg Tramadol HCl (Ultram) 25 mg PO BID PRN PRN Reason: Pain, moderate (4-7) Last Admin: 01/11/17 21:16 Dose: 25 mg Ziprasidone (Geodon Inj) 10 mg IM Q12 PRN; Protocol PRN Reason: severe agitation Last Admin: 01/11/17 23:51 Dose: 10 mg - Labs Labs: 01/13/17 05:10 01/12/17 04:00 PT 13.7 Seconds (9.9-11.8) H 01/12/17 04:00 INR 1.27 (0.93-1.08) H 01/12/17 04:00 APTT 32.7 Seconds (23.7-30.8) H 01/12/17 04:00 - Constitutional Appears: Other (Intubated and on the ventilator) - Head Exam Head Exam: NORMAL INSPECTION - ENT Exam Additional comments: ET tube in place - Neck Exam Neck Exam: absent: Lymphadenopathy, Meningismus - Respiratory Exam Respiratory Exam: Decreased Breath Sounds - Cardiovascular Exam Cardiovascular Exam: +S1, +S2 - GI/Abdominal Exam GI & Abdominal Exam: Soft. absent: Tenderness Assessment and Plan - Assessment and Plan (Free Text) Plan: Assessment S/P cardiac arrest, etiology to be determined, but should consider myocardial infarction or cardiac arrhythmia; currently on the ventilator Coagulase negative staph in blood cx, R/O port-related bacteremia right sided mastoiditis noted on the MRI of the head T12 compression fracture CAD S/P CABG COPD history of asbestosis history of Coomb's positive hemolytic anemia history of diverticulitis gastritis GERD benign prostatic hyperplasia Plan continue Daptomycin day 5; repeat blood cx are negative; follow up 2D echo to rule out vegetations - if negative, will need 10-14 days of antibiotics total with antibiotic lock therapy for the port will add Merrem for the mastoiditis Follow up ICU work up and further plans will continue to monitor clinically Overall prognosis is poor
[2017-01-13] MEDS: Meropenem 1g/NS 100mL IVPB 1 GM/100 ML PIGGYBACK IVPB SCH (11:49)
[2017-01-13] MEDS: DAPTOmycin 510 MG in Sodium Chloride 0.9% 100 ML IV SCH (12:57)
--- NOTE | 2017-01-13 14:21 | PN ---
DATE: SUBJECTIVE: The patient is in the critical unit, 128, bed 7. The patient was admitted initially with altered mental state. Pain in the left loin and sacroiliac area. The patient had sustained fracture of the T12 vertebrae, which was acute. The patient had a past history of coronary artery disease, chronic obstructive lung disease, asbestosis. The patient has history of infection with elevated white count and white count has been elevated for several weeks. The patient has Port-A-cath. He has had history of multiple angioplasties. Today, the patient is in critical care unit. The patient had a cardiac arrest while he was in the medical floor. He was agitated and given a dose of Geodon by the nurse. It was ordered by the psychiatrist for agitation and psychotic behavior. The patient soon afterwards had a cardiac arrest and the patient was resuscitated and admitted to the critical care unit. Today, the patient is still unresponsive. He is on the respirator. PHYSICAL EXAMINATION: VITAL SIGNS: His pulse is 150, blood pressure 168/114, currently elevated. LUNGS: Bilateral crepitations. Rhonchi present. HEART: Sinus tachycardia. ABDOMEN: Soft. Liver and spleen are not palpable. CENTRAL NERVOUS SYSTEM: He is unresponsive and there are no neurological functions that can be elicited. His pupils are small and equal. The estimation is that the patient is critically ill and in a state of encephalopathic damage to the brain. The patient's medical condition has been managed on acute basis. He will have a neurological evaluation. The patient has treatment and consultation with the call specialist, Dr. Almazan. The patient also has an oncological evaluation with Dr. Walton. The patient is on antibiotic for infection because the white count is trending towards infectious process rather than neoplastic process. His overall prognosis is poor. David Pavon MD MTDNubia
--- NOTE | 2017-01-13 15:02 | CP.PCM.PN ---
Subjective - Date & Time of Evaluation Date of Evaluation: 01/13/17 Time of Evaluation: 14:58 - Subjective Subjective: Mr. Maddox was seen and examined today in the ICU. He was more responsive and opened eyes and grimaced to painful stimulus. There were no acute events overnight. Objective - Vital Signs/Intake and Output Vital Signs (last 24 hours): Temp Pulse Resp BP Pulse Ox 98.3 F 98 H 42 H 126/46 L 81 L 01/13/17 14:00 01/13/17 13:50 01/13/17 08:20 01/13/17 13:00 01/13/17 13:50 Intake and Output: 01/13/17 01/13/17 06:59 18:59 Intake Total 1425 18.0 Output Total 300 Balance 1125 18.0 - Medications Medications: Current Medications Aspirin (Aspirin Chewable) 81 mg PO DAILY [facility] Last Admin: 01/13/17 09:44 Dose: 81 mg Clopidogrel Bisulfate (Plavix) 75 mg PO DAILY [facility] Last Admin: 01/13/17 09:44 Dose: 75 mg Diltiazem HCl (Cardizem) 60 mg PO QID [facility] Fentanyl (Fentanyl) 50 mcg IVP Q2H PRN PRN Reason: Pain, severe (8-10) Hydralazine HCl (Apresoline) 10 mg IVP Q6 PRN PRN Reason: for SBP>170 & or Diastolic>100 Sodium Chloride (Sodium Chloride 0.9%) 1,000 mls @ 100 mls/hr IV .Q10H [facility] Last Admin: 01/13/17 05:03 Dose: 100 mls/hr Daptomycin 510 mg/ Sodium (Chloride) 100 mls @ 100 mls/hr IV Q24H [facility] Stop: 01/17/17 10:01 Last Admin: 01/13/17 12:57 Dose: 100 mls/hr Amiodarone HCl/Dextrose (Nexterone 360 Mg In D5w 200 Ml (Premix)) 360 mg in 200 mls @ 16.667 mls/hr IV .Q12H YESSI; 0.5 MG/MIN PRN Reason: Protocol Last Admin: 01/13/17 09:29 Dose: 16.667 mls/hr Dexmedetomidine HCl (Precedex 4 Mcg/Ml (100 Ml)) 400 mcg in 100 mls @ 4.359 mls /hr IV .[id number] PRN; Protocol; 0.2 MCG/KG/HR PRN Reason: Sedation Last Titration: 01/13/17 10:10 Dose: 0.4 mcg/kg/hr, 8.718 mls/hr Meropenem 1g/NS 100mL IVPB (Meropenem 1g/Ns 100ml Ivpb) 1 gm in 100 mls @ 100 mls/hr IVPB Q12 YESSI PRN Reason: Protocol Stop: 01/20/17 10:16 Last Admin: 01/13/17 11:49 Dose: 100 mls/hr Isosorbide Mononitrate (Imdur) 60 mg PO DAILY [facility] Last Admin: 01/13/17 09:45 Dose: 60 mg Labetalol HCl (Trandate) 10 mg IV Q3H PRN PRN Reason: Systolic Blood Pressure Levalbuterol HCl (Xopenex) 0.63 mg IH [id number] [facility] Last Admin: 01/13/17 13:39 Dose: 0.63 mg Levalbuterol HCl (Xopenex) 0.63 mg IH Q2 PRN PRN Reason: Shortness of Breath Lorazepam (Ativan) 0.5 mg PO HS PRN; Protocol PRN Reason: anxiety/insomnia Last Admin: 01/11/17 21:16 Dose: 0.5 mg Metoprolol Tartrate (Lopressor) 100 mg PO BRKDIN [facility] Last Admin: 01/13/17 11:46 Dose: Not Given Pantoprazole Sodium (Protonix Inj) 40 mg IVP DAILY [facility] Last Admin: 01/13/17 09:45 Dose: 40 mg Prednisone (Prednisone Tab) 5 mg PO DAILY [facility] Last Admin: 01/13/17 09:44 Dose: 5 mg Tamsulosin HCl (Flomax) 0.4 mg PO DAILY [facility] Last Admin: 01/13/17 09:44 Dose: 0.4 mg - Labs Labs: 01/13/17 05:10 01/13/17 05:10 PT 13.7 Seconds (9.9-11.8) H 01/12/17 04:00 INR 1.27 (0.93-1.08) H 01/12/17 04:00 APTT 32.7 Seconds (23.7-30.8) H 01/12/17 04:00 - Neurological Exam Additional comments: Brainstem reflexes are intact, GCS improved to 6T. Assessment and Plan (1) Hypoxic brain injury Assessment & Plan: EEG showed diffuse slowing consistent with hypoxic injury. There were no seizures noted. MRI of the brain does not show stroke, but it does show some signs of cortical ribboning in the parietal region consistent with some cortical ischemic likely caused by cardiac arrest and hypoxemia. Continue current management and monitor closely for improvement. May consider stimulants if he does not improve and if cleared by cardiology. Status: Acute
--- NOTE | 2017-01-13 15:53 | CP.PCM.PN ---
Subjective - Date & Time of Evaluation Date of Evaluation: 01/13/17 Time of Evaluation: 10:30 - Subjective Subjective: Heme/ onc note for Dr Walton: Pt seen and examined at bedside in the ICU. Code Blue called yesterday - pt received Epinephrine x2, and 1x shock for V-fib before ROSC was obtained. Sedated with precedex. Today pt is minimally responsive and grimaces to painful stimulus. ROS unobtainable. Objective - Vital Signs/Intake and Output Vital Signs (last 24 hours): Temp Pulse Resp BP Pulse Ox 98.3 F 77 42 H 126/46 L 81 L 01/13/17 14:00 01/13/17 14:59 01/13/17 08:20 01/13/17 13:00 01/13/17 13:50 Intake and Output: 01/13/17 01/13/17 06:59 18:59 Intake Total 1425 18.0 Output Total 300 Balance 1125 18.0 - Medications Medications: Current Medications Aspirin (Aspirin Chewable) 81 mg PO DAILY [facility] Last Admin: 01/13/17 09:44 Dose: 81 mg Clopidogrel Bisulfate (Plavix) 75 mg PO DAILY [facility] Last Admin: 01/13/17 09:44 Dose: 75 mg Diltiazem HCl (Cardizem) 60 mg PO QID YESSI Fentanyl (Fentanyl) 50 mcg IVP Q2H PRN PRN Reason: Pain, severe (8-10) Hydralazine HCl (Apresoline) 10 mg IVP Q6 PRN PRN Reason: for SBP>170 & or Diastolic>100 Sodium Chloride (Sodium Chloride 0.9%) 1,000 mls @ 100 mls/hr IV .Q10H YESSI Last Admin: 01/13/17 15:03 Dose: 100 mls/hr Daptomycin 510 mg/ Sodium (Chloride) 100 mls @ 100 mls/hr IV Q24H YESSI Stop: 01/17/17 10:01 Last Admin: 01/13/17 12:57 Dose: 100 mls/hr Amiodarone HCl/Dextrose (Nexterone 360 Mg In D5w 200 Ml (Premix)) 360 mg in 200 mls @ 16.667 mls/hr IV .Q12H YESSI; 0.5 MG/MIN PRN Reason: Protocol Last Admin: 01/13/17 09:29 Dose: 16.667 mls/hr Dexmedetomidine HCl (Precedex 4 Mcg/Ml (100 Ml)) 400 mcg in 100 mls @ 4.359 mls /hr IV .[id number] PRN; Protocol; 0.2 MCG/KG/HR PRN Reason: Sedation Last Titration: 01/13/17 10:10 Dose: 0.4 mcg/kg/hr, 8.718 mls/hr Meropenem 1g/NS 100mL IVPB (Meropenem 1g/Ns 100ml Ivpb) 1 gm in 100 mls @ 100 mls/hr IVPB Q12 YESSI PRN Reason: Protocol Stop: 01/20/17 10:16 Last Admin: 01/13/17 11:49 Dose: 100 mls/hr Isosorbide Mononitrate (Imdur) 60 mg PO DAILY [facility] Last Admin: 01/13/17 09:45 Dose: 60 mg Labetalol HCl (Trandate) 10 mg IV Q3H PRN PRN Reason: Systolic Blood Pressure Levalbuterol HCl (Xopenex) 0.63 mg IH [id number] [facility] Last Admin: 01/13/17 13:39 Dose: 0.63 mg Levalbuterol HCl (Xopenex) 0.63 mg IH Q2 PRN PRN Reason: Shortness of Breath Lorazepam (Ativan) 0.5 mg PO HS PRN; Protocol PRN Reason: anxiety/insomnia Last Admin: 01/11/17 21:16 Dose: 0.5 mg Metoprolol Tartrate (Lopressor) 100 mg PO BRKDIN [facility] Last Admin: 01/13/17 11:46 Dose: Not Given Pantoprazole Sodium (Protonix Inj) 40 mg IVP DAILY [facility] Last Admin: 01/13/17 09:45 Dose: 40 mg Prednisone (Prednisone Tab) 5 mg PO DAILY [facility] Last Admin: 01/13/17 09:44 Dose: 5 mg Tamsulosin HCl (Flomax) 0.4 mg PO DAILY [facility] Last Admin: 01/13/17 09:44 Dose: 0.4 mg - Labs Labs: 01/13/17 05:10 01/13/17 05:10 PT 13.7 Seconds (9.9-11.8) H 01/12/17 04:00 INR 1.27 (0.93-1.08) H 01/12/17 04:00 APTT 32.7 Seconds (23.7-30.8) H 01/12/17 04:00 - Constitutional Appears: No Acute Distress - Head Exam Head Exam: ATRAUMATIC - Eye Exam Eye Exam: PERRL - ENT Exam ENT Exam: Mucous Membranes Moist - Respiratory Exam Respiratory Exam: Clear to Ausculation Bilateral. absent: Rales, Wheezes - Cardiovascular Exam Cardiovascular Exam: Tachycardia, +S1, +S2 - GI/Abdominal Exam GI & Abdominal Exam: Soft. absent: Distended, Tenderness - Extremities Exam Extremities Exam: absent: Calf Tenderness, Pedal Edema - Skin Skin Exam: Dry, Intact, Warm Assessment and Plan - Assessment and Plan (Free Text) Assessment: 86 M with pmh of hemolytic anemia, CAD, COPD, CABG, hx of diverticulitis, gastritis, GERD, BPPH, Asbestosis, presents to the ED with cough and L sided back pain. Pt found to have T12 compression fracture. Pt has Félix positive, hemolytic anemia on prednisone now with a leukocytosis of 66.2 Leukocytosis: leukomoid rxn vs sepsis vs infection. Pt had a cardiac arrest, epinephrine x 2, and vfib with shock x 1 and ROSC was achieved. Pt is currently intubated. - Sedated with precedex - Cont Amio drip, aspirin, plavix, and cardizem - wbc inc to 86.9 - Neuro consulted for recs - EEG showed diffuse slowing - MRI Brain - No acute intracranial finding, R mastoiditis - MRA- unremarkable - MRA neck - no stenosis - F/u echo - F/u ID recs - cont Dapto and Cristin - flow cytometry of the blood was negative - peripheral smear showed leukomoid reaction - Ordered Jak2 mutation, BCR/abl, Will f/u - MRI of the thoracic spine - recent compression fracture of T12 with marrow edema anteriorly - CT abdomen showed new compression deformity of T12 and small epidural hemorrhage at this level. rec MRI - f/u cardio recs - cont current management - CXR- b/l calcified pleural plaques - Cont Prednisone 5mg daily - Daily labs Case and plan was reviewed and discussed in detail with Dr Walton
--- NOTE | 2017-01-13 16:22 | CP.PCM.PN ---
<MAXWELL MUÑOZ - Last Filed: 01/13/17 18:33> Subjective - Date & Time of Evaluation Date of Evaluation: 01/13/17 Time of Evaluation: 07:30 - Subjective Subjective: Maxwell Muñoz DO PGY1 - ICU Progress Note Patient seen and examined at bedside. Patient remains intubated, but not sedated. Unresponsive to verbal or tactile stimuli. Pending EEG and repeat imaging studies today. Objective - Vital Signs/Intake and Output Vital Signs (last 24 hours): Temp Pulse Resp BP Pulse Ox 98.3 F 77 42 H 126/46 L 81 L 01/13/17 14:00 01/13/17 14:59 01/13/17 08:20 01/13/17 13:00 01/13/17 13:50 Intake and Output: 01/13/17 01/13/17 06:59 18:59 Intake Total 1425 18.0 Output Total 300 Balance 1125 18.0 - Medications Medications: Current Medications Aspirin (Aspirin Chewable) 81 mg PO DAILY [facility] Last Admin: 01/13/17 09:44 Dose: 81 mg Clopidogrel Bisulfate (Plavix) 75 mg PO DAILY [facility] Last Admin: 01/13/17 09:44 Dose: 75 mg Diltiazem HCl (Cardizem) 60 mg PO QID YESSI Fentanyl (Fentanyl) 50 mcg IVP Q2H PRN PRN Reason: Pain, severe (8-10) Hydralazine HCl (Apresoline) 10 mg IVP Q6 PRN PRN Reason: for SBP>170 & or Diastolic>100 Sodium Chloride (Sodium Chloride 0.9%) 1,000 mls @ 100 mls/hr IV .Q10H YESSI Last Admin: 01/13/17 15:03 Dose: 100 mls/hr Daptomycin 510 mg/ Sodium (Chloride) 100 mls @ 100 mls/hr IV Q24H YESSI Stop: 01/17/17 10:01 Last Admin: 01/13/17 12:57 Dose: 100 mls/hr Amiodarone HCl/Dextrose (Nexterone 360 Mg In D5w 200 Ml (Premix)) 360 mg in 200 mls @ 16.667 mls/hr IV .Q12H YESSI; 0.5 MG/MIN PRN Reason: Protocol Last Admin: 01/13/17 09:29 Dose: 16.667 mls/hr Dexmedetomidine HCl (Precedex 4 Mcg/Ml (100 Ml)) 400 mcg in 100 mls @ 4.359 mls /hr IV .[id number] PRN; Protocol; 0.2 MCG/KG/HR PRN Reason: Sedation Last Titration: 01/13/17 10:10 Dose: 0.4 mcg/kg/hr, 8.718 mls/hr Meropenem 1g/NS 100mL IVPB (Meropenem 1g/Ns 100ml Ivpb) 1 gm in 100 mls @ 100 mls/hr IVPB Q12 YESSI PRN Reason: Protocol Stop: 01/20/17 10:16 Last Admin: 01/13/17 11:49 Dose: 100 mls/hr Isosorbide Mononitrate (Imdur) 60 mg PO DAILY [facility] Last Admin: 01/13/17 09:45 Dose: 60 mg Labetalol HCl (Trandate) 10 mg IV Q3H PRN PRN Reason: Systolic Blood Pressure Levalbuterol HCl (Xopenex) 0.63 mg IH [id number] [facility] Last Admin: 01/13/17 13:39 Dose: 0.63 mg Levalbuterol HCl (Xopenex) 0.63 mg IH Q2 PRN PRN Reason: Shortness of Breath Lorazepam (Ativan) 0.5 mg PO HS PRN; Protocol PRN Reason: anxiety/insomnia Last Admin: 01/11/17 21:16 Dose: 0.5 mg Metoprolol Tartrate (Lopressor) 100 mg PO BRKDIN [facility] Last Admin: 01/13/17 11:46 Dose: Not Given Pantoprazole Sodium (Protonix Inj) 40 mg IVP DAILY [facility] Last Admin: 01/13/17 09:45 Dose: 40 mg Prednisone (Prednisone Tab) 5 mg PO DAILY [facility] Last Admin: 01/13/17 09:44 Dose: 5 mg Tamsulosin HCl (Flomax) 0.4 mg PO DAILY [facility] Last Admin: 01/13/17 09:44 Dose: 0.4 mg - Labs Labs: 01/13/17 05:10 01/13/17 05:10 PT 13.7 Seconds (9.9-11.8) H 01/12/17 04:00 INR 1.27 (0.93-1.08) H 01/12/17 04:00 APTT 32.7 Seconds (23.7-30.8) H 01/12/17 04:00 - Constitutional Appears: Chronically Ill - Head Exam Head Exam: ATRAUMATIC, NORMOCEPHALIC - Eye Exam Eye Exam: PERRL - ENT Exam ENT Exam: Mucous Membranes Moist - Neck Exam Neck Exam: absent: Lymphadenopathy, Meningismus, Thyromegaly - Respiratory Exam Respiratory Exam: Wheezes (mild, diffuse). absent: Rales, Rhonchi - Cardiovascular Exam Cardiovascular Exam: Tachycardia, RRR, +S1, +S2 - GI/Abdominal Exam GI & Abdominal Exam: Soft. absent: Firm, Guarding, Rigid - Extremities Exam Extremities Exam: Pedal Edema (trace) - Neurological Exam Additional comments: Lethargic, unresponsive to verbal or tactile stimuli. Opening eyes to painful stimuli. Pupillary, corneal, and gag reflexes intact - Skin Skin Exam: Dry, Intact Assessment and Plan - Assessment and Plan (Free Text) Assessment: This is an 86 yo M with PMH of hemolytic anemia, CAD, COPD, CABG, hx of diverticulitis, gastritis, GERD, BPH, and Asbestosis who is currently intubated, s/p cardiac arrest with ROSC at Plan: Neuro: - Intubated but not sedated; will start fentanyl PRN for sedation - Maintain sedation for comfort, but wean off tomorrow to reassess 48 hours s/p cardiac arrest to determine degree of neurological recovery - Maintain normothermia - EEG ordered, read by Neuro (Vamshi) as diffuse slowing consistent with hypoxic injury. MRI brain, MRA head and neck completed yesterday. Per Neuro, shows cortical ribboning in the parietal region consistent with cortical ischemia. - Neuro (Vamshi) consulted, all recs appreciated - Currently unresponsive to verbal and tactile stimuli, but opens eyes to painful stimuli, and has some flexural withdrawal to pain, with intact pupillary , corneal, gag, and cough reflexes Cardio: - s/p cardiac arrest, ROSC after CPR, 2x epi, 1x shock, 1x calcium, 1x sodium bicarb - On amiodarone drip. d/c cardizem drip. Started Cardizem QID, hydralazine PRN per cardio - On ASA, plavix, imdur, metoprolol - maintain MAP > 65, no pressor support currently required - On NS 100cc/hr - Trop 0.74, likely elevated 2/2 cardiac arrest and CPR, repeat trop today. - Cardio consulted, all recs appreciated Pulm: - Intubated and ventilated - Repeat ABG reviewed, shows persistent metabolic acidosis with appropriately compensated respiratory alkalosis, improving lactate 1.6 - Vent PRVC 60%/10/13/400 - Repeat CXR shows - conservative O2 management, maintain SaO2 > 92% and paO2 > 60 - low tidal volumes, VAP bundle, protective lung ventilation strategy GI: - NPO - Protonix IVP for GI ppx - OGT in place for PO meds Renal: -Araiza in place. Decreased urine output, significant positive fluid balance. -Strict I's & O's -monitor and replete electrolytes as needed -maintain euglycemia and euvolemia Heme: - Hgb improved to 12.0 - Persistent Leukocytosis to 86.9, interpreted as leukemoid reaction per Hem/Onc - Hem/Onc on consult, all recs appreciated - no signs of active bleeding, continue to monitor ID: - Persistent leukocytosis, now 86.9, afebrile - Lactate 1.6, improved - Cont daptomycin, start Merrem, per ID - ID (Tita) consulted, all recs appreciated - Maintain normothermia Ppx: Protonix for GI, SCDs for DVT Patient seen, reviewed, discussed with attending <Kayla MORALES,Ernie H - Last Filed: 01/14/17 08:31> Objective - Vital Signs/Intake and Output Vital Signs (last 24 hours): Temp Pulse Resp BP Pulse Ox 98.5 F 93 H 38 H 130/63 94 L 01/14/17 06:00 01/14/17 07:00 01/14/17 08:04 01/14/17 07:00 01/14/17 08:04 Intake and Output: 01/14/17 01/14/17 06:59 18:59 Intake Total 3366 20 Output Total 550 Balance 2816 20 - Medications Medications: Current Medications Aspirin (Aspirin Chewable) 81 mg PO DAILY [facility] Last Admin: 01/13/17 09:44 Dose: 81 mg Clopidogrel Bisulfate (Plavix) 75 mg PO DAILY [facility] Last Admin: 01/13/17 09:44 Dose: 75 mg Diltiazem HCl (Cardizem) 60 mg PO QID [facility] Last Admin: 01/13/17 22:02 Dose: 60 mg Enoxaparin Sodium (Lovenox) 80 mg SC Q12H YESSI PRN Reason: Protocol Fentanyl (Fentanyl) 50 mcg IVP Q2H PRN PRN Reason: Pain, severe (8-10) Hydralazine HCl (Apresoline) 10 mg IVP Q6 PRN PRN Reason: for SBP>170 & or Diastolic>100 Sodium Chloride (Sodium Chloride 0.9%) 1,000 mls @ 100 mls/hr IV .Q10H YESSI Last Admin: 01/14/17 01:35 Dose: 100 mls/hr Daptomycin 510 mg/ Sodium (Chloride) 100 mls @ 100 mls/hr IV Q24H YESSI Stop: 01/17/17 10:01 Last Admin: 01/13/17 12:57 Dose: 100 mls/hr Amiodarone HCl/Dextrose (Nexterone 360 Mg In D5w 200 Ml (Premix)) 360 mg in 200 mls @ 16.667 mls/hr IV .Q12H YESSI; 0.5 MG/MIN PRN Reason: Protocol Last Admin: 01/13/17 22:03 Dose: 16.667 mls/hr Meropenem 1g/NS 100mL IVPB (Meropenem 1g/Ns 100ml Ivpb) 1 gm in 100 mls @ 100 mls/hr IVPB Q12 YESSI PRN Reason: Protocol Stop: 01/20/17 10:16 Last Admin: 01/13/17 11:49 Dose: 100 mls/hr Propofol (Diprivan) 1,000 mg in 100 mls @ 2.545 mls/hr IV .Q24H PRN; Protocol; 5 MCG/KG/MIN PRN Reason: TITRATE PER MD ORDER Last Titration: 01/14/17 08:02 Dose: 10 mcg/kg/min, 5.089 mls/hr Magnesium Sulfate 2 gm/ Sodium (Chloride) 104 mls @ 102 mls/hr IVPB ONCE ONE Stop: 01/14/17 08:45 Isosorbide Mononitrate (Imdur) 60 mg PO DAILY [facility] Last Admin: 01/13/17 09:45 Dose: 60 mg Labetalol HCl (Trandate) 10 mg IV Q3H PRN PRN Reason: Systolic Blood Pressure Levalbuterol HCl (Xopenex) 0.63 mg IH [id number] [facility] Last Admin: 01/14/17 07:55 Dose: 0.63 mg Levalbuterol HCl (Xopenex) 0.63 mg IH Q2 PRN PRN Reason: Shortness of Breath Last Admin: 01/13/17 20:20 Dose: 0.63 mg Lorazepam (Ativan) 0.5 mg PO HS PRN; Protocol PRN Reason: anxiety/insomnia Last Admin: 01/11/17 21:16 Dose: 0.5 mg Metoprolol Tartrate (Lopressor) 100 mg PO BRKDIN [facility] Last Admin: 01/13/17 18:11 Dose: 100 mg Pantoprazole Sodium (Protonix Inj) 40 mg IVP DAILY [facility] Last Admin: 01/13/17 09:45 Dose: 40 mg Prednisone (Prednisone Tab) 5 mg PO DAILY [facility] Last Admin: 01/13/17 09:44 Dose: 5 mg Tamsulosin HCl (Flomax) 0.4 mg PO DAILY [facility] Last Admin: 01/13/17 09:44 Dose: 0.4 mg - Labs Labs: 01/14/17 05:45 01/14/17 05:45 PT 13.7 Seconds (9.9-11.8) H 01/12/17 04:00 INR 1.27 (0.93-1.08) H 01/12/17 04:00 APTT 32.7 Seconds (23.7-30.8) H 01/12/17 04:00 Attending/Attestation - Attestation I have personally seen and examined this patient.: Yes I have fully participated in the care of the patient.: Yes I have reviewed all pertinent clinical information, including history, physical exam and plan: Yes Notes (Text): 01/14/17 08:26 86 y/o M s/p Cardiac arrest mental status unchanged . Placed on Precedex due to uncomfortable breathing . Currently not meeting criteria for brain protocol. Neuro exam needed daily to prognosticate prognosis. Possible aspiration Pneumonitis noted w/ relative hypoxia. Empiric abx coverage started. DVT P . poor prognosis cc time 35 min
[2017-01-13] MEDS: Levalbuterol 0.63 MG/3 ML Inhal Soln UD IH PRN ×2 (18:05→20:20)
--- NOTE | 2017-01-13 19:05 | PN ---
DATE: 01/13/2017 REASON FOR ADMISSION: Followup coronary artery status post coded CPR, intubated, respiratory failure, and cardiac evaluation. The patient is on ventilator, last dose gave at 6:00 a.m. of Ativan, not arousable. PHYSICAL EXAMINATION: VITAL SIGNS: Temperature is afebrile, heart rate 136, blood pressure 180/102. HEENT: KATLYN. Extraocular muscles are intact. NECK: Supple. No carotid bruit. No thyromegaly. CHEST: Clear to auscultation. HEART: S1 and S2 regular. ABDOMEN: Soft. EXTREMITIES: Clubbing and cyanosis negative. LABORATORY DATA: Blood workup as follows: WBC 86.9, hemoglobin 12, hematocrit 35.2, platelet count 282. Chemistry showed sodium 143, potassium 3.9, chloride 101, carbon dioxide 99, anion gap of 15, BUN 19, creatinine 1.4. Total protein 6.4, albumin 3, albumin-globulin ration of 0.9. IMPRESSION: Status post CPR, status post cardiorespiratory failure. The patient within 5 hours was coded. CPR was done. The patient moved to ICU, was intubated. Last dose of Ativan the patient received at 6:00 a.m. History of coronary artery disease, history of coronary artery bypass graft, history of last percutaneous transluminal coronary angioplasty of the saphenous vein graft to right coronary artery, chronic obstructive pulmonary disease, diverticulitis, gastritis, gastroesophageal reflux, benign prostatic hypertrophy, gastrointestinal bleed in the past, peptic ulcer disease, hypertension, hyperlipidemia, and coronary artery disease as above. WBC count elevation. As mentioned, the patient had CPR done yesterday. History of multiple stents in the past, history of chronic obstructive pulmonary disease, history of asbestosis, history of emphysema, history of post cardiac arrest recently, history of hemolytic anemia in the past requiring IV gammaglobulin in the past. RECOMMENDATIONS: Follow up CPK, troponin, get off the wean of the vent, follow the trend of troponin. If troponin keeps on increasing, consider re-cardiac catheterization. The patient had a cardiac catheterization before in the past and stent was patent. In between continue amiodarone and aspirin. I will start Cardizem because of the patient's high blood pressure. I think will increase to 10 mL an hour. We will give 5 with IV, Lopressor. We will follow with you. Thank you providing me the opportunity in taking care of the patient. Francisca Almazan MD cc:
--- NOTE | 2017-01-13 20:37 | CARD ---
APPROVED REPORT EXAM: Two-dimensional and M-mode echocardiogram with Doppler and color Doppler. INDICATION S/P CARDIAC ARREST/CP 2D DIMENSIONS IVSd1.2 (0.7-1.1cm)LVDd5.1 (3.9-5.9cm) PWd1.7 (0.7-1.1cm) M-Mode DIMENSIONS Aortic Root3.40 (2.2-3.7cm)Aortic Cusp Exc.1.30 (1.5-2.0cm) Aortic Valve AoV Peak Ffoxzjtd458.0cm/Alo Peak GR.8mmHg Mitral Valve MV E Ukxtjusx16.6cm/sMV A Dozazmqo491.0cm/sE/A ratio0.7 TDI Lateral E' Peak V5.26cm/sMedial E' Peak V3.90cm/sE/Lateral E'13.8 E/Medial E'18.6 Pulmonary Valve PV Peak Slasrlkn84.0cm/sPV Peak Grad.2mmHg Tricuspid Valve TR Peak Styezrbm912sp/sRAP [id number] Peak Gr.16mmHg [id number] LEFT VENTRICLE The left ventricle is normal size. There is mild concentric left ventricular hypertrophy. The systolic function is mildly impaired.EF-45-50% There is mild hypokinesis in the apical anterior wall. Transmitral Doppler flow pattern is Grade III-reversible restrictive diastolic dysfunction. No left ventricle thrombus noted on this study. There is no ventricular septal defect visualized. There is no left ventricular aneurysm. There is no mass noted in the left ventricle. RIGHT VENTRICLE The right ventricle is mildly dilated. There is normal right ventricular wall thickness. The right ventricular systolic function is normal. ATRIA The left atrium is borderline dilated. The right atrium size is normal. The interatrial septum is intact with no evidence for an atrial septal defect. AORTIC VALVE The aortic valve is calcified and displays decreased opening. No aortic regurgitation is present. There is mild valvular aortic stenosis. There is no aortic valvular vegetation. MITRAL VALVE The mitral valve is thickened but opens well. Mitral regurgitation is mild. There is no mitral valve stenosis. There is no evidence of mitral valve prolapse. TRICUSPID VALVE The tricuspid valve leaflets are thickened or calcified, but open well. There is mild tricuspid regurgitation.RVSP-26 mmof Hg. There is no tricuspid valve stenosis. There is no tricuspid valve prolapse or vegetation. PULMONIC VALVE The pulmonic valve is not well visualized. GREAT VESSELS The aortic root is normal in size. The ascending aorta is normal in size. The pulmonary artery is normal. The IVC is normal in size and collapses >50% with inspiration. PERICARDIAL EFFUSION There is no pleural effusion. There is no pericardial effusion. <Conclusion> The left ventricle is normal size. There is mild concentric left ventricular hypertrophy. The systolic function is mildly impaired.EF-45-50% There is mild valvular aortic stenosis. Mitral regurgitation is mild. There is mild tricuspid regurgitation.RVSP-26 mmof Hg. The IVC is normal in size and collapses >50% with inspiration. There is no pericardial effusion.
[2017-01-14] MEDS: Sodium Chloride 0.9% 1,000 ML IV SCH ×3 (01:35→22:49)
[2017-01-14] MEDS: Dexmedetomidine HCl 4mcg/ml 400 MCG/100 ML BOTTLE IV PRN (03:35)
[2017-01-14] MEDS: Propofol 10 mg/ml 1,000 MG/100 ML VIAL IV PRN ×3 (04:00→18:57)
[2017-01-14 06:24] LABS: ARTERIAL BLOOD GAS HCO3 15.6 mmol/L (21-28); ARTERIAL BLOOD GAS PH 7.42 (7.35-7.45)
[2017-01-14 06:32] LABS: HEMATOCRIT 31.2 % (42.0-52.0); MEAN CELL VOLUME 95.7 fl (80.0-105.0); MEAN CORPUSCULAR HEMOGLOBIN 32.2 pg (25.0-35.0); MEAN CORPUSCULAR HGB CONC 33.7 g/dl (31.0-37.0); MEAN PLATELET VOLUME 10.8 fl (7.0-11.0); PLATELET COUNT 251 10^3/uL (120.0-450.0); RED CELL DISTRIBUTION WIDTH 16.4 % (11.5-14.5)
[2017-01-14 06:36] LABS: ADD MANUAL DIFF? YES
[2017-01-14 06:38] LABS: WHITE BLOOD COUNT 71.9 10^3/ul (4.5-11.0)
[2017-01-14 06:58] LABS: BILIRUBIN,TOTAL 0.9 mg/dL (0.2-1.3); CALCIUM 7.5 mg/dL (8.4-10.5); MAGNESIUM 1.6 mg/dL (1.7-2.2); PHOSPHOROUS 2.7 mg/dL (2.5-4.5); POTASSIUM 3.8 mmol/L (3.6-5.0)
[2017-01-14 07:29] LABS: ALB/GLOB RATIO 0.8 (1.1-1.8); TOTAL PROTEIN 5.6 g/dL (5.8-8.3)
[2017-01-14] MEDS ORDERED: Magnesium Sulfate 2 GM in Sodium Chloride 0.9% 100 ML IVPB ONE (07:44)
[2017-01-14 07:47] LABS: TROPONIN I 2.32 ng/mL
[2017-01-14] MEDS: Levalbuterol 0.63 MG/3 ML Inhal Soln UD IH SCH ×3 (07:55→20:20)
--- NOTE | 2017-01-14 08:02 | CP.PCM.PN ---
Subjective - Date & Time of Evaluation Date of Evaluation: 01/14/17 Time of Evaluation: 07:30 - Subjective Subjective: Patient is seen this morning in the cardiac care unit bed 7. He had cardiac arrest and is currently sedated and intubated. Objective - Vital Signs/Intake and Output Vital Signs (last 24 hours): Temp Pulse Resp BP Pulse Ox 98.5 F 93 H 42 H 130/63 97 01/14/17 06:00 01/14/17 07:00 01/13/17 08:20 01/14/17 07:00 01/14/17 07:00 Intake and Output: 01/14/17 01/14/17 06:59 18:59 Intake Total 3366 15 Output Total 550 Balance 2816 15 - Medications Medications: Current Medications Aspirin (Aspirin Chewable) 81 mg PO DAILY [facility] Last Admin: 01/13/17 09:44 Dose: 81 mg Clopidogrel Bisulfate (Plavix) 75 mg PO DAILY [facility] Last Admin: 01/13/17 09:44 Dose: 75 mg Diltiazem HCl (Cardizem) 60 mg PO QID [facility] Last Admin: 01/13/17 22:02 Dose: 60 mg Enoxaparin Sodium (Lovenox) 80 mg SC Q12H YESSI PRN Reason: Protocol Fentanyl (Fentanyl) 50 mcg IVP Q2H PRN PRN Reason: Pain, severe (8-10) Hydralazine HCl (Apresoline) 10 mg IVP Q6 PRN PRN Reason: for SBP>170 & or Diastolic>100 Sodium Chloride (Sodium Chloride 0.9%) 1,000 mls @ 100 mls/hr IV .Q10H [facility] Last Admin: 01/14/17 01:35 Dose: 100 mls/hr Daptomycin 510 mg/ Sodium (Chloride) 100 mls @ 100 mls/hr IV Q24H YESSI Stop: 01/17/17 10:01 Last Admin: 01/13/17 12:57 Dose: 100 mls/hr Amiodarone HCl/Dextrose (Nexterone 360 Mg In D5w 200 Ml (Premix)) 360 mg in 200 mls @ 16.667 mls/hr IV .Q12H YESSI; 0.5 MG/MIN PRN Reason: Protocol Last Admin: 01/13/17 22:03 Dose: 16.667 mls/hr Meropenem 1g/NS 100mL IVPB (Meropenem 1g/Ns 100ml Ivpb) 1 gm in 100 mls @ 100 mls/hr IVPB Q12 YESSI PRN Reason: Protocol Stop: 01/20/17 10:16 Last Admin: 01/13/17 11:49 Dose: 100 mls/hr Propofol (Diprivan) 1,000 mg in 100 mls @ 2.545 mls/hr IV .Q24H PRN; Protocol; 5 MCG/KG/MIN PRN Reason: TITRATE PER MD ORDER Last Titration: 01/14/17 07:52 Dose: 15 mcg/kg/min, 7.634 mls/hr Magnesium Sulfate 2 gm/ Sodium (Chloride) 104 mls @ 102 mls/hr IVPB ONCE ONE Stop: 01/14/17 08:45 Isosorbide Mononitrate (Imdur) 60 mg PO DAILY [facility] Last Admin: 01/13/17 09:45 Dose: 60 mg Labetalol HCl (Trandate) 10 mg IV Q3H PRN PRN Reason: Systolic Blood Pressure Levalbuterol HCl (Xopenex) 0.63 mg IH [id number] [facility] Last Admin: 01/13/17 13:39 Dose: 0.63 mg Levalbuterol HCl (Xopenex) 0.63 mg IH Q2 PRN PRN Reason: Shortness of Breath Last Admin: 01/13/17 20:20 Dose: 0.63 mg Lorazepam (Ativan) 0.5 mg PO HS PRN; Protocol PRN Reason: anxiety/insomnia Last Admin: 01/11/17 21:16 Dose: 0.5 mg Metoprolol Tartrate (Lopressor) 100 mg PO BRKDIN [facility] Last Admin: 01/13/17 18:11 Dose: 100 mg Pantoprazole Sodium (Protonix Inj) 40 mg IVP DAILY [facility] Last Admin: 01/13/17 09:45 Dose: 40 mg Prednisone (Prednisone Tab) 5 mg PO DAILY [facility] Last Admin: 01/13/17 09:44 Dose: 5 mg Tamsulosin HCl (Flomax) 0.4 mg PO DAILY [facility] Last Admin: 01/13/17 09:44 Dose: 0.4 mg - Labs Labs: 01/14/17 05:45 01/14/17 05:45 PT 13.7 Seconds (9.9-11.8) H 01/12/17 04:00 INR 1.27 (0.93-1.08) H 01/12/17 04:00 APTT 32.7 Seconds (23.7-30.8) H 01/12/17 04:00 - ENT Exam Additional comments: + ET tube - Respiratory Exam Respiratory Exam: Clear to Ausculation Bilateral - Cardiovascular Exam Cardiovascular Exam: +S1, +S2 - GI/Abdominal Exam GI & Abdominal Exam: Soft - Extremities Exam Extremities Exam: Normal Inspection - Neurological Exam Neurological Exam: Altered Assessment and Plan - Assessment and Plan (Free Text) Assessment: Cardiac arrest on ventilator Encephalopathy CAD with elevated troponin COPD with asbestosis HTN mild dementia Plan: Patient is seen this morning. He is still on the ventilator and is now sedated. He is unresponsive at present. White count is elevated. Possible pseudo-leukemoid reaction versus infection. Patient started on Daptomycin for possible port infection and Merrem for mastoiditis seen on MRI Brain. MRI shows chronic microvascular changes. EEG consistent with hypoxemic encephalopathy. Troponin trending slowly downward. Patient has history coronary artery disease. continue ASA and plavix and beta stacia. Critical care, pulmonary, cardiology and infectious disease consultants are on the case. try to wean off ventilator.
[2017-01-14 08:53] LABS: ATYPICAL LYMPHOCYTE 1 % (0.0-0.0); BAND 2 % (0-2); METAMYELOCYTE 3 %; MYELOCYTE 2 %; NEUTROPHIL 82 % (50.0-70.0)
[2017-01-14 08:54] LABS: ANISOCYTOSIS 1+; HYPOCHROMIA 1+; OVALOCYTES SLIGHT; PLATELET ESTIMATE NORMAL (NORMAL); POIKILOCYTOSIS SLIGHT; POLYCHROMASIA SLIGHT; TOXIC GRANULATION 1+
--- NOTE | 2017-01-14 09:02 | RAD ---
HISTORY: hypoxia, adjustment of the tube COMPARISON: 01/03/2017 FINDINGS: LUNGS: The endotracheal tube and nasogastric tube are in satisfactory position PLEURA: No significant pleural effusion identified, no pneumothorax apparent. CARDIOVASCULAR: Mild cardiomegaly. Mild vascular and interstitial congestion OSSEOUS STRUCTURES: No significant abnormalities. VISUALIZED UPPER ABDOMEN: Normal. OTHER FINDINGS: None. IMPRESSION: Endotracheal and nasogastric tube in satisfactory position
--- NOTE | 2017-01-14 09:18 | RAD ---
HISTORY: intub COMPARISON: 01/12/2017 FINDINGS: LUNGS: The endotracheal tube is at the level of the upper clavicles. The nasogastric tube is seen in the distal stomach or duodenum. Bibasilar infiltrates unchanged PLEURA: No significant pleural effusion identified, no pneumothorax apparent. CARDIOVASCULAR: Normal. OSSEOUS STRUCTURES: No significant abnormalities. VISUALIZED UPPER ABDOMEN: Normal. OTHER FINDINGS: None. IMPRESSION: The endotracheal tube is at the level of the upper clavicles. The nasogastric tube is seen in the distal stomach or duodenum. Bibasilar infiltrates unchanged
--- NOTE | 2017-01-14 09:46 | CP.PCM.PN ---
Subjective - Date & Time of Evaluation Date of Evaluation: 01/14/17 Time of Evaluation: 09:10 - Subjective Subjective: Continues to be on the ventilator and sedated; when sedation is off, the patient follow commands. No fevers overnight. Objective - Vital Signs/Intake and Output Vital Signs (last 24 hours): Temp Pulse Resp BP Pulse Ox 98.5 F 91 H 42 H 139/46 L 94 L 01/14/17 06:00 01/14/17 02:00 01/13/17 08:20 01/14/17 02:00 01/14/17 02:00 Intake and Output: 01/13/17 01/14/17 18:59 06:59 Intake Total 112.6 3366 Output Total 550 Balance 112.6 2816 - Medications Medications: Current Medications Aspirin (Aspirin Chewable) 81 mg PO DAILY [facility] Last Admin: 01/13/17 09:44 Dose: 81 mg Clopidogrel Bisulfate (Plavix) 75 mg PO DAILY [facility] Last Admin: 01/13/17 09:44 Dose: 75 mg Diltiazem HCl (Cardizem) 60 mg PO QID [facility] Last Admin: 01/13/17 22:02 Dose: 60 mg Fentanyl (Fentanyl) 50 mcg IVP Q2H PRN PRN Reason: Pain, severe (8-10) Hydralazine HCl (Apresoline) 10 mg IVP Q6 PRN PRN Reason: for SBP>170 & or Diastolic>100 Sodium Chloride (Sodium Chloride 0.9%) 1,000 mls @ 100 mls/hr IV .Q10H [facility] Last Admin: 01/14/17 01:35 Dose: 100 mls/hr Daptomycin 510 mg/ Sodium (Chloride) 100 mls @ 100 mls/hr IV Q24H [facility] Stop: 01/17/17 10:01 Last Admin: 01/13/17 12:57 Dose: 100 mls/hr Amiodarone HCl/Dextrose (Nexterone 360 Mg In D5w 200 Ml (Premix)) 360 mg in 200 mls @ 16.667 mls/hr IV .Q12H [facility]; 0.5 MG/MIN PRN Reason: Protocol Last Admin: 01/13/17 22:03 Dose: 16.667 mls/hr Meropenem 1g/NS 100mL IVPB (Meropenem 1g/Ns 100ml Ivpb) 1 gm in 100 mls @ 100 mls/hr IVPB Q12 YESSI PRN Reason: Protocol Stop: 01/20/17 10:16 Last Admin: 01/13/17 11:49 Dose: 100 mls/hr Propofol (Diprivan) 1,000 mg in 100 mls @ 2.545 mls/hr IV .Q24H PRN; Protocol; 5 MCG/KG/MIN PRN Reason: TITRATE PER MD ORDER Last Admin: 01/14/17 04:00 Dose: 5 mcg/kg/min, 2.545 mls/hr Isosorbide Mononitrate (Imdur) 60 mg PO DAILY [facility] Last Admin: 01/13/17 09:45 Dose: 60 mg Labetalol HCl (Trandate) 10 mg IV Q3H PRN PRN Reason: Systolic Blood Pressure Levalbuterol HCl (Xopenex) 0.63 mg IH [id number] [facility] Last Admin: 01/13/17 13:39 Dose: 0.63 mg Levalbuterol HCl (Xopenex) 0.63 mg IH Q2 PRN PRN Reason: Shortness of Breath Last Admin: 01/13/17 20:20 Dose: 0.63 mg Lorazepam (Ativan) 0.5 mg PO HS PRN; Protocol PRN Reason: anxiety/insomnia Last Admin: 01/11/17 21:16 Dose: 0.5 mg Metoprolol Tartrate (Lopressor) 100 mg PO BRKDIN [facility] Last Admin: 01/13/17 18:11 Dose: 100 mg Pantoprazole Sodium (Protonix Inj) 40 mg IVP DAILY [facility] Last Admin: 01/13/17 09:45 Dose: 40 mg Prednisone (Prednisone Tab) 5 mg PO DAILY [facility] Last Admin: 01/13/17 09:44 Dose: 5 mg Tamsulosin HCl (Flomax) 0.4 mg PO DAILY [facility] Last Admin: 01/13/17 09:44 Dose: 0.4 mg - Labs Labs: 01/14/17 05:45 01/13/17 05:10 PT 13.7 Seconds (9.9-11.8) H 01/12/17 04:00 INR 1.27 (0.93-1.08) H 01/12/17 04:00 APTT 32.7 Seconds (23.7-30.8) H 01/12/17 04:00 - Constitutional Appears: Other (Intubated and sedated) - Head Exam Head Exam: NORMAL INSPECTION - ENT Exam Additional comments: Et tube in place - Neck Exam Neck Exam: absent: Meningismus - Respiratory Exam Respiratory Exam: Decreased Breath Sounds Additional comments: right anterior chest wall port site intact and clean - Cardiovascular Exam Cardiovascular Exam: +S1, +S2 - GI/Abdominal Exam GI & Abdominal Exam: Soft. absent: Tenderness Assessment and Plan - Assessment and Plan (Free Text) Plan: Assessment S/P cardiac arrest, etiology to be determined, but should consider myocardial infarction or cardiac arrhythmia; currently with ventilator-dependent respiratory failure Coagulase negative staph in blood cx, R/O port-related bacteremia right sided mastoiditis noted on the MRI of the head T12 compression fracture CAD S/P CABG COPD history of asbestosis history of Coomb's positive hemolytic anemia history of diverticulitis gastritis GERD benign prostatic hyperplasia Plan continue Daptomycin day 6; repeat blood cx are negative; follow up 2D echo to rule out vegetations - if negative, will need 10-14 days of antibiotics total with antibiotic lock therapy for the port continue Merrem (day 2) for the mastoiditis Follow up ICU work up and further plans will continue to monitor clinically Overall prognosis is poor
[2017-01-14] MEDS: Enoxaparin 80 mg Syringe SC SCH ×2 (09:50→20:20)
[2017-01-14] MEDS: Meropenem 1g/NS 100mL IVPB 1 GM/100 ML PIGGYBACK IVPB SCH ×2 (09:53→22:39)
--- NOTE | 2017-01-14 10:08 | US ---
PROCEDURE: Right upper extremity venous US CLINICAL HISTORY: Arm pain and swelling Evaluate for deep venous thrombosis. PHYSICIAN(S): Mushtaq Michaels M.D FINDINGS: The visualized rightinternal jugular vein is sonographically normal and compressible. No evidence of obstruction or thrombus is seen. The visualized segments of the right subclavian vein are patent with normal waveforms. No sonographic evidence of obstruction or thrombosis is seen. The visualized deep venous system of the proximal right upper extremity is sonographically normal and compressible. IMPRESSION: 1. No sonographic evidence for deep venous thrombosis in the visualized segments of the right upper extremity.
[2017-01-14] MEDS ORDERED: Potassium Chloride 20 mEq/15 ml LIQ UD PO STA (10:19)
[2017-01-14] MEDS: DAPTOmycin 510 MG in Sodium Chloride 0.9% 100 ML IV SCH (10:30)
--- NOTE | 2017-01-14 10:42 | CP.PCM.CON ---
History of Present Illness - History of Present Illness History of Present Illness: Palliative consult requested by Dr Ernie Pavon notified 86 year old male who was initially presented with complaints of left sided flank pain, decreased appetite, chills, vomiting and dysruria on 01/07/17. CT of abdomen revealed T12 compression fracture and small epidural hemorrhage. On the evening of 01/12/17 he suffered a cardiac arrest> Code Blue called> ROSC achieved after [address] of head showed no acute changes. EEG consistent with hypoxemic encephalopathy.He is intubated. PMHx: COPD,CAD s/p stents, CABG,GERD, anemia, leukocytosis,dementia with behavioral disturbance. Social History: Former smoker, no alcohol or drug use. Advance Care Planning:The patient does not have Advance Directive Review of Systems:Unable to obtain, intubated/sedated Past Patient History - Infectious Disease Hx of Infectious Diseases: None - Tetanus Immunizations Tetanus Immunization: Unknown - Past Medical History & Family History Past Medical History?: Yes - Past Social History Smoking Status: Former Smoker - CARDIAC Hx Cardiac Disorders: Yes (CAD, ACS, CABG 3 vessels, [place]) Hx Congestive Heart Failure: Yes Hx Hypercholesterolemia: Yes Hx Hypertension: Yes - PULMONARY Hx Chronic Obstructive Pulmonary Disease (COPD): Yes - NEUROLOGICAL Hx Neurological Disorder: Yes Hx Dementia: Yes - HEENT Hx HEENT Problems: (WEARS RX GLASSES, [place]) - RENAL Hx Chronic Kidney Disease: No - ENDOCRINE/METABOLIC Hx Endocrine Disorders: No - HEMATOLOGICAL/ONCOLOGICAL Hx Blood Disorders: Yes (blood transfusion) Hx Anemia: Yes (hemolytic anemia) - INTEGUMENTARY Other/Comment: cells removed on body as per patient and , multiple skin, discolorations, nodules and dry patches of skin to arms and legs, multiple tatoos - MUSCULOSKELETAL/RHEUMATOLOGICAL Hx Arthritis: Yes - GASTROINTESTINAL Hx Gastrointestinal Disorders: Yes (GASTRITIS) Hx Diverticulitis: Yes Hx Gall Bladder Disease: Yes Hx Gastroesophageal Reflux: Yes - GENITOURINARY/GYNECOLOGICAL Hx Genitourinary Disorders: Yes (URINARY FREQUENCY) Hx Prostate Problems: Yes (BPH) Hx Urinary Tract Infection: Yes - PSYCHIATRIC Hx Anxiety: Yes Hx Emotional Abuse: No Hx Physical Abuse: No Hx Substance Use: No Other/Comment: pt becoming more agresive and disoriented at home - SURGICAL HISTORY Hx Cholecystectomy: Yes Hx Coronary Stent: Yes Hx Open Heart Surgery: Yes (3 vessel) Other/Comment: excision r hand lesion 07/2016, scalp lesion, 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, pt a hard stick - ANESTHESIA Hx Anesthesia: Yes Hx Anesthesia Reactions: No Hx Malignant Hyperthermia: No Meds Allergies/Adverse Reactions: Allergies Allergy/AdvReac Type Severity Reaction Status Date / Time No Known Allergies Allergy Verified 01/07/17 11:29 - Medications Medications: Current Medications Amiodarone HCl (Cordarone) 200 mg PO BID [facility] Last Admin: 01/14/17 10:18 Dose: 200 mg Aspirin (Aspirin Chewable) 81 mg PO DAILY [facility] Last Admin: 01/14/17 09:49 Dose: 81 mg Clopidogrel Bisulfate (Plavix) 75 mg PO DAILY [facility] Last Admin: 01/14/17 09:49 Dose: 75 mg Diltiazem HCl (Cardizem) 60 mg PO QID [facility] Last Admin: 01/14/17 09:50 Dose: 60 mg Enoxaparin Sodium (Lovenox) 80 mg SC Q12H [facility] PRN Reason: Protocol Last Admin: 01/14/17 09:50 Dose: 80 mg Fentanyl (Fentanyl) 50 mcg IVP Q2H PRN PRN Reason: Pain, severe (8-10) Hydralazine HCl (Apresoline) 10 mg IVP Q6 PRN PRN Reason: for SBP>170 & or Diastolic>100 Hydrocortisone Sodium Succinate (Solu-Cortef) 100 mg IVP Q12H [facility] Sodium Chloride (Sodium Chloride 0.9%) 1,000 mls @ 100 mls/hr IV .Q10H [facility] Last Admin: 01/14/17 01:35 Dose: 100 mls/hr Daptomycin 510 mg/ Sodium (Chloride) 100 mls @ 100 mls/hr IV Q24H [facility] Stop: 01/17/17 10:01 Last Admin: 01/13/17 12:57 Dose: 100 mls/hr Meropenem 1g/NS 100mL IVPB (Meropenem 1g/Ns 100ml Ivpb) 1 gm in 100 mls @ 100 mls/hr IVPB Q12 [facility] PRN Reason: Protocol Stop: 01/20/17 10:16 Last Admin: 01/14/17 09:53 Dose: 100 mls/hr Propofol (Diprivan) 1,000 mg in 100 mls @ 2.545 mls/hr IV .Q24H PRN; Protocol; 5 MCG/KG/MIN PRN Reason: TITRATE PER MD ORDER Last Titration: 01/14/17 08:46 Dose: 20 mcg/kg/min, 10.179 mls/hr Isosorbide Mononitrate (Imdur) 60 mg PO DAILY [facility] Last Admin: 01/14/17 09:49 Dose: 60 mg Labetalol HCl (Trandate) 10 mg IV Q3H PRN PRN Reason: Systolic Blood Pressure Levalbuterol HCl (Xopenex) 0.63 mg IH [id number] [facility] Last Admin: 01/14/17 07:55 Dose: 0.63 mg Levalbuterol HCl (Xopenex) 0.63 mg IH Q2 PRN PRN Reason: Shortness of Breath Last Admin: 01/13/17 20:20 Dose: 0.63 mg Lorazepam (Ativan) 0.5 mg PO HS PRN; Protocol PRN Reason: anxiety/insomnia Last Admin: 01/11/17 21:16 Dose: 0.5 mg Metoprolol Tartrate (Lopressor) 25 mg PO BID [facility] Pantoprazole Sodium (Protonix Inj) 40 mg IVP DAILY [facility] Last Admin: 01/14/17 09:51 Dose: 40 mg Tamsulosin HCl (Flomax) 0.4 mg PO DAILY [facility] Last Admin: 01/14/17 09:49 Dose: 0.4 mg Physical Exam - Constitutional Appears: Chronically Ill - Eye Exam Eye Exam: Normal appearance, PERRL - ENT Exam ENT Exam: Mucous Membranes Moist - Respiratory Exam Respiratory Exam: Clear to Auscultation Bilateral, NORMAL BREATHING PATTERN - Cardiovascular Exam Cardiovascular Exam: REGULAR RHYTHM, +S1 - GI/Abdominal Exam GI & Abdominal Exam: Normal Bowel Sounds, Soft - Extremities Exam Extremities exam: Positive for: pedal pulses present - Neurological Exam Neurological exam: Altered Additional comments: sedated - Additional Findings Additional findings: Palliative performance scale rating 20 % Results - Vital Signs Recent Vital Signs: Last Vital Signs Temp 98.5 F 01/14/17 06:00 Pulse 87 01/14/17 10:18 Resp 38 H 01/14/17 08:04 BP 112/49 L 01/14/17 10:18 Pulse Ox 94 L 01/14/17 08:04 - Labs Result Diagrams: 01/14/17 05:45 08/15/17 05:45 Labs: Laboratory Results - last 24 hr 01/12/17 01/12/17 01/13/17 03:31 15:35 18:34 WBC RBC Hgb Hct MCV MCH MCHC RDW Plt Count MPV Neutrophils % (Manual) Band Neutrophils % Lymphocytes % (Manual) Atypical Lymphs % Monocytes % (Manual) Metamyelocytes % Myelocytes % Toxic Granulation Platelet Evaluation Polychromasia Hypochromasia Poikilocytosis (manual Anisocytosis (manual) Ovalocytes Rouleaux pCO2 pO2 HCO3 ABG pH ABG Total CO2 ABG O2 Saturation ABG Base Excess ABG Potassium Sodium Chloride Glucose Lactate FiO2 Potassium Carbon Dioxide Anion Gap BUN Creatinine Est GFR ( Amer) Est GFR (Non-Af Amer) POC Glucose (mg/dL) 172 H 137 H Random Glucose Calcium Phosphorus Magnesium Total Bilirubin AST ALT Alkaline Phosphatase Lactate Dehydrogenase Total Creatine Kinase Troponin I 2.76 H* D Total Protein Albumin Globulin Albumin/Globulin Ratio Triglycerides Cholesterol LDL Cholesterol Direct HDL Cholesterol TSH 3rd Generation Arterial Blood Potassium 01/14/17 01/14/17 01/14/17 05:45 05:45 05:45 WBC 71.9 H* RBC 3.26 L Hgb 10.5 L Hct 31.2 L MCV 95.7 MCH 32.2 MCHC 33.7 RDW 16.4 H Plt Count 251 MPV 10.8 Neutrophils % (Manual) 82 H Band Neutrophils % 2 Lymphocytes % (Manual) 2 L Atypical Lymphs % 1 H Monocytes % (Manual) 8 H Metamyelocytes % 3 Myelocytes % 2 Toxic Granulation 1+ Platelet Evaluation Normal Polychromasia Slight Hypochromasia 1+ Poikilocytosis (manual Slight Anisocytosis (manual) 1+ Ovalocytes Slight Rouleaux Slight pCO2 24 L pO2 60.0 L HCO3 15.6 L ABG pH 7.42 ABG Total CO2 16.3 L ABG O2 Saturation 96.9 ABG Base Excess -7.0 L ABG Potassium 3.9 Sodium 141 141.0 Chloride 114 H 115.0 H Glucose 100 Lactate 2.1 FiO2 50.0 Potassium 3.8 Carbon Dioxide 17 L Anion Gap 14 BUN 29 H Creatinine 1.4 Est GFR ( Amer) 58 Est GFR (Non-Af Amer) 48 POC Glucose (mg/dL) Random Glucose 84 Calcium 7.5 L Phosphorus 2.7 Magnesium 1.6 L Total Bilirubin 0.9 AST 55 ALT 94 H Alkaline Phosphatase 103 Lactate Dehydrogenase 1313 H Total Creatine Kinase 181 Troponin I 2.32 H* Total Protein 5.6 L Albumin 2.5 L Globulin 3.1 Albumin/Globulin Ratio 0.8 L Triglycerides 148 Cholesterol 84 L LDL Cholesterol Direct 38 HDL Cholesterol 15 L TSH 3rd Generation Arterial Blood Potassium 3.9 01/14/17 05:45 WBC RBC Hgb Hct MCV MCH MCHC RDW Plt Count MPV Neutrophils % (Manual) Band Neutrophils % Lymphocytes % (Manual) Atypical Lymphs % Monocytes % (Manual) Metamyelocytes % Myelocytes % Toxic Granulation Platelet Evaluation Polychromasia Hypochromasia Poikilocytosis (manual Anisocytosis (manual) Ovalocytes Rouleaux pCO2 pO2 HCO3 ABG pH ABG Total CO2 ABG O2 Saturation ABG Base Excess ABG Potassium Sodium Chloride Glucose Lactate FiO2 Potassium Carbon Dioxide Anion Gap BUN Creatinine Est GFR ( Amer) Est GFR (Non-Af Amer) POC Glucose (mg/dL) Random Glucose Calcium Phosphorus Magnesium Total Bilirubin AST ALT Alkaline Phosphatase Lactate Dehydrogenase Total Creatine Kinase Troponin I Total Protein Albumin Globulin Albumin/Globulin Ratio Triglycerides Cholesterol LDL Cholesterol Direct HDL Cholesterol TSH 3rd Generation 1.4 Arterial Blood Potassium Assessment & Plan - Assessment and Plan (Free Text) Assessment: 86 year old male with history of COPD,CAD s/p stents, CABG,GERD, anemia, leukocytosis,dementia, T12 compression fracture who suffered an acute cardiac arrest during this admission. He is intubated. He has gag/corneal/pupillary reflexes. He is breathing over the ventilator. He is able to follow simple command such as wiggling his toes Will meet with family to discuss future goals of care and advance care planning. Plan: Advance care planning
[2017-01-14 11:03] LABS: VENOUS BLOOD GAS BASE EXCESS -5.4 mmol/L (0.0-2.0); VENOUS BLOOD PH 7.43 (7.32-7.43)
--- NOTE | 2017-01-14 11:23 | CP.PCM.PN ---
Subjective - Date & Time of Evaluation Date of Evaluation: 01/14/17 Time of Evaluation: 07:10 - Subjective Subjective: Heme/ onc note for Dr Walton: Pt seen and examined at bedside in the ICU. Sedated on propofol. Today pt is minimally responsive. Opens eye to painful stimulus. ROS unobtainable. Objective - Vital Signs/Intake and Output Vital Signs (last 24 hours): Temp Pulse Resp BP Pulse Ox 98.5 F 87 38 H 112/49 L 94 L 01/14/17 06:00 01/14/17 10:18 01/14/17 08:04 01/14/17 10:18 01/14/17 08:04 Intake and Output: 01/14/17 01/14/17 06:59 18:59 Intake Total 3366 20 Output Total 550 Balance 2816 20 - Medications Medications: Current Medications Amiodarone HCl (Cordarone) 200 mg PO BID [facility] Last Admin: 01/14/17 10:18 Dose: 200 mg Aspirin (Aspirin Chewable) 81 mg PO DAILY [facility] Last Admin: 01/14/17 09:49 Dose: 81 mg Clopidogrel Bisulfate (Plavix) 75 mg PO DAILY [facility] Last Admin: 01/14/17 09:49 Dose: 75 mg Diltiazem HCl (Cardizem) 60 mg PO QID [facility] Last Admin: 01/14/17 09:50 Dose: 60 mg Enoxaparin Sodium (Lovenox) 80 mg SC Q12H [facility] PRN Reason: Protocol Last Admin: 01/14/17 09:50 Dose: 80 mg Fentanyl (Fentanyl) 50 mcg IVP Q2H PRN PRN Reason: Pain, severe (8-10) Hydralazine HCl (Apresoline) 10 mg IVP Q6 PRN PRN Reason: for SBP>170 & or Diastolic>100 Hydrocortisone Sodium Succinate (Solu-Cortef) 100 mg IVP Q12H [facility] Last Admin: 01/14/17 10:27 Dose: 100 mg Sodium Chloride (Sodium Chloride 0.9%) 1,000 mls @ 100 mls/hr IV .Q10H [facility] Last Admin: 01/14/17 01:35 Dose: 100 mls/hr Daptomycin 510 mg/ Sodium (Chloride) 100 mls @ 100 mls/hr IV Q24H [facility] Stop: 01/17/17 10:01 Last Admin: 01/14/17 10:30 Dose: 100 mls/hr Meropenem 1g/NS 100mL IVPB (Meropenem 1g/Ns 100ml Ivpb) 1 gm in 100 mls @ 100 mls/hr IVPB Q12 [facility]ESSI PRN Reason: Protocol Stop: 01/20/17 10:16 Last Admin: 01/14/17 09:53 Dose: 100 mls/hr Propofol (Diprivan) 1,000 mg in 100 mls @ 2.545 mls/hr IV .Q24H PRN; Protocol; 5 MCG/KG/MIN PRN Reason: TITRATE PER MD ORDER Last Titration: 01/14/17 08:46 Dose: 20 mcg/kg/min, 10.179 mls/hr Isosorbide Mononitrate (Imdur) 60 mg PO DAILY [facility] Last Admin: 01/14/17 09:49 Dose: 60 mg Labetalol HCl (Trandate) 10 mg IV Q3H PRN PRN Reason: Systolic Blood Pressure Levalbuterol HCl (Xopenex) 0.63 mg IH [id number] [facility] Last Admin: 01/14/17 07:55 Dose: 0.63 mg Levalbuterol HCl (Xopenex) 0.63 mg IH Q2 PRN PRN Reason: Shortness of Breath Last Admin: 01/13/17 20:20 Dose: 0.63 mg Lorazepam (Ativan) 0.5 mg PO HS PRN; Protocol PRN Reason: anxiety/insomnia Last Admin: 01/11/17 21:16 Dose: 0.5 mg Metoprolol Tartrate (Lopressor) 25 mg PO BID [facility] Pantoprazole Sodium (Protonix Inj) 40 mg IVP DAILY [facility] Last Admin: 01/14/17 09:51 Dose: 40 mg Tamsulosin HCl (Flomax) 0.4 mg PO DAILY [facility] Last Admin: 01/14/17 09:49 Dose: 0.4 mg - Labs Labs: 01/14/17 05:45 01/14/17 05:45 PT 13.7 Seconds (9.9-11.8) H 01/12/17 04:00 INR 1.27 (0.93-1.08) H 01/12/17 04:00 APTT 32.7 Seconds (23.7-30.8) H 01/12/17 04:00 - Constitutional Appears: No Acute Distress - Eye Exam Eye Exam: PERRL - ENT Exam ENT Exam: Mucous Membranes Moist - Respiratory Exam Respiratory Exam: Clear to Ausculation Bilateral. absent: Rales, Wheezes - Cardiovascular Exam Cardiovascular Exam: RRR, +S1, +S2 - GI/Abdominal Exam GI & Abdominal Exam: Soft. absent: Distended, Tenderness - Extremities Exam Extremities Exam: absent: Calf Tenderness, Pedal Edema - Skin Skin Exam: Dry, Intact, Warm Assessment and Plan - Assessment and Plan (Free Text) Assessment: 86 M with pmh of hemolytic anemia, CAD, COPD, CABG, hx of diverticulitis, gastritis, GERD, BPPH, Asbestosis, presents to the ED with cough and L sided back pain. Pt found to have T12 compression fracture. Pt has Félix positive, hemolytic anemia on prednisone now with a leukocytosis of 66.2 Leukocytosis: leukomoid rxn vs sepsis vs infection. Pt had a cardiac arrest, epinephrine x 2, and vfib with shock x 1 and ROSC was achieved. Pt is currently intubate and sedated. - Sedated with propofol - Cont Amio, aspirin, plavix, and cardizem 60mg QID as per cardio - wbc inc 71.9 - flow cytometry of the blood was negative - peripheral smear showed leukomoid reaction - Ordered Jak2 mutation, BCR/abl, Will f/u - prednisone dced, started Solucortef 100mg BID - Neuro consulted for recs - EEG showed diffuse slowing - MRI Brain - No acute intracranial finding, R mastoiditis - MRA- unremarkable - MRA neck - no stenosis - F/u echo - F/u ID recs - cont Dapto and Cristin - MRI of the thoracic spine - recent compression fracture of T12 with marrow edema anteriorly - CT abdomen showed new compression deformity of T12 and small epidural hemorrhage at this level. rec MRI - CXR- b/l calcified pleural plaques - Daily labs Case and plan was reviewed and discussed in detail with Dr Walton
[2017-01-14] MEDS: Levalbuterol 0.63 MG/3 ML Inhal Soln UD IH PRN (11:25)
--- NOTE | 2017-01-14 11:27 | PCM.EEG ---
Electroencephalogram Report - Electroencephalogram Report Procedure Date: 01/13/17 Interpretation: INDICATIONS: Post cardiac arrest, anoxic brain injury. EEG report. Technical: The international 10-20 electrode placement system is used for scalp electrode placement. Eighteen channels of scalp EEG are recorded. Poorly organized and generalized slow-wave delta activity was noted. Description: No focal slowing was seen. No seizure like activity was observed during this recording. Diffuse Abnormality: Mixed diffuse theta and delta activity was seen. Markedly suppressed EEG activity was observed. Impression: Impression: This EEG is abnormal. Diffuse slowing is seen, suggestive of a diffuse abnormality of the brain. This finding is nonspecific, and can be seen in a diffuse or multifocal abnormality of the brain.
--- NOTE | 2017-01-14 11:45 | CARD ---
APPROVED REPORT EKG Measurement Heart [id number] [id number] <Conclusion> Normal sinus rhythm Possible Left atrial enlargement Incomplete right bundle branch block Nonspecific ST and T wave abnormality Prolonged QT Abnormal ECG
--- NOTE | 2017-01-14 15:14 | CP.PCM.PN ---
Subjective - Date & Time of Evaluation Date of Evaluation: 01/14/17 Time of Evaluation: 15:10 - Subjective Subjective: Mr. Maddox was seen and examined today at bedside in the ICU. He was off sedation earlier and was following simple commands. Seems to be more responsive today. No acute events overnight. Objective - Vital Signs/Intake and Output Vital Signs (last 24 hours): Temp Pulse Resp BP Pulse Ox 98.5 F 111 H 38 H 112/45 L 92 L 01/14/17 06:00 01/14/17 13:21 01/14/17 08:04 01/14/17 13:21 01/14/17 12:00 Intake and Output: 01/14/17 01/14/17 06:59 18:59 Intake Total 3366 100 Output Total 550 Balance 2816 100 - Medications Medications: Current Medications Amiodarone HCl (Cordarone) 200 mg PO BID [facility] Last Admin: 01/14/17 10:18 Dose: 200 mg Aspirin (Aspirin Chewable) 81 mg PO DAILY [facility] Last Admin: 01/14/17 09:49 Dose: 81 mg Clopidogrel Bisulfate (Plavix) 75 mg PO DAILY [facility] Last Admin: 01/14/17 09:49 Dose: 75 mg Diltiazem HCl (Cardizem) 60 mg PO QID [facility] Last Admin: 01/14/17 13:21 Dose: 60 mg Enoxaparin Sodium (Lovenox) 80 mg SC Q12H [facility] PRN Reason: Protocol Last Admin: 01/14/17 09:50 Dose: 80 mg Fentanyl (Fentanyl) 50 mcg IVP Q2H PRN PRN Reason: Pain, severe (8-10) Hydralazine HCl (Apresoline) 10 mg IVP Q6 PRN PRN Reason: for SBP>170 & or Diastolic>100 Hydrocortisone Sodium Succinate (Solu-Cortef) 100 mg IVP Q12H [facility] Last Admin: 01/14/17 10:27 Dose: 100 mg Sodium Chloride (Sodium Chloride 0.9%) 1,000 mls @ 100 mls/hr IV .Q10H [facility] Last Admin: 01/14/17 13:21 Dose: 100 mls/hr Daptomycin 510 mg/ Sodium (Chloride) 100 mls @ 100 mls/hr IV Q24H [facility] Stop: 01/17/17 10:01 Last Admin: 01/14/17 10:30 Dose: 100 mls/hr Meropenem 1g/NS 100mL IVPB (Meropenem 1g/Ns 100ml Ivpb) 1 gm in 100 mls @ 100 mls/hr IVPB Q12 [facility] PRN Reason: Protocol Stop: 01/20/17 10:16 Last Admin: 01/14/17 09:53 Dose: 100 mls/hr Propofol (Diprivan) 1,000 mg in 100 mls @ 2.545 mls/hr IV .Q24H PRN; Protocol; 5 MCG/KG/MIN PRN Reason: TITRATE PER MD ORDER Last Admin: 01/14/17 13:22 Dose: 30 mcg/kg/min, 15.268 mls/hr Isosorbide Mononitrate (Imdur) 60 mg PO DAILY [facility] Last Admin: 01/14/17 09:49 Dose: 60 mg Labetalol HCl (Trandate) 10 mg IV Q3H PRN PRN Reason: Systolic Blood Pressure Levalbuterol HCl (Xopenex) 0.63 mg IH [id number] [facility] Last Admin: 01/14/17 13:12 Dose: 0.63 mg Levalbuterol HCl (Xopenex) 0.63 mg IH Q2 PRN PRN Reason: Shortness of Breath Last Admin: 01/14/17 11:25 Dose: 0.63 mg Lorazepam (Ativan) 0.5 mg PO HS PRN; Protocol PRN Reason: anxiety/insomnia Last Admin: 01/11/17 21:16 Dose: 0.5 mg Metoprolol Tartrate (Lopressor) 25 mg PO BID [facility] Pantoprazole Sodium (Protonix Inj) 40 mg IVP DAILY [facility] Last Admin: 01/14/17 09:51 Dose: 40 mg Tamsulosin HCl (Flomax) 0.4 mg PO DAILY [facility] Last Admin: 01/14/17 09:49 Dose: 0.4 mg - Labs Labs: 01/14/17 05:45 01/14/17 05:45 PT 13.7 Seconds (9.9-11.8) H 01/12/17 04:00 INR 1.27 (0.93-1.08) H 01/12/17 04:00 APTT 32.7 Seconds (23.7-30.8) H 01/12/17 04:00 - Neurological Exam Neurological Exam: CN II-XII Intact Additional comments: Confused, but follows simple commands with movement in all extremities noted. Strength testing could not be assessed. Assessment and Plan (1) Hypoxic brain injury Assessment & Plan: Post-cardiac arrest anoxic brain injury. Seems to be improving. Continue conservative management and will consider adding stimulants if he does not progress after extubation. Status: Acute
--- NOTE | 2017-01-14 15:32 | CT ---
PROCEDURE: CT HEAD WITHOUT CONTRAST. HISTORY: fu COMPARISON: 01/12/2017 TECHNIQUE: Axial computed tomography images were obtained through the head/brain without intravenous contrast. Radiation dose: Total exam DLP = mGy-cm. This CT exam was performed using one or more of the following dose reduction techniques: Automated exposure control, adjustment of the mA and/or kV according to patient size, and/or use of iterative reconstruction technique. FINDINGS: HEMORRHAGE: No intracranial hemorrhage. BRAIN: No mass effect or edema. Atrophic changes are noted. VENTRICLES: Unremarkable. No hydrocephalus. CALVARIUM: Unremarkable. PARANASAL SINUSES: Unremarkable as visualized. No significant inflammatory changes. MASTOID AIR CELLS: Unremarkable as visualized. No inflammatory changes. OTHER FINDINGS: Orogastric tube in place. IMPRESSION: No acute hemorrhage.
[2017-01-14 15:47] LABS: ABG MECHANICAL RATE 14; ARTERIAL BLOOD GAS HCO3 15.6 mmol/L (21-28); ARTERIAL BLOOD GAS PH 7.37 (7.35-7.45); ATERIAL BLOOD GAS PEEP 10
--- NOTE | 2017-01-14 15:53 | PN ---
DATE: 01/14/2017 REASON FOR CONSULTATION: Followup coronary artery disease, status post found unresponsive CPR intubated, rule out anoxic encephalopathy. SUBJECTIVE: The patient is still being intubated and sedated, minimal response to verbal stimuli. OBJECTIVE: GENERAL: Not in apparent distress, intubated and sedated, minimal response to verbal stimuli. VITAL SIGNS: Temperature afebrile, heart rate 89, blood pressure 117/51. HEENT: PERRLA. Extraocular muscles intact. NECK: Supple. No carotid bruit or thyromegaly. CHEST: Clear to auscultation. HEART: S1 and S2 regular. ABDOMEN: Soft. EXTREMITIES: Clubbing and cyanosis negative. LABORATORY DATA: Blood workup as follows: WBC 71.9, hemoglobin 10.5, hematocrit 31.2, platelet count 251. Chemistry shows sodium 141, potassium 3.8, chloride 114, carbon dioxide 17, anion gap of 14, BUN 19, creatinine 1.4. Troponin 2.32. TSH 1.4. IMPRESSION: This is an 86-year-old male with past medical history significant for coronary artery disease, coronary artery bypass graft, multiple stents, SVG to RCA, who was in the floor with severe atrial fibrillation, found to be unresponsive, duration unknown. A status post CPR done, code status, downtime was 11 minutes, but before that how long he was unresponsive not sure, currently being intubated. The patient one time was shocked also for ventricular fibrillation, on IV amiodarone. Troponin positive possible as secondary to CPR, but cannot rule out underlying coronary artery disease and non-ST elevation myocardial infarction. History of asbestosis, history of emphysema, history of intravascular hemolysis, cold agglutinin positive, on gammaglobulin, elevated WBC. Chest x-ray cannot rule out underlying infiltrate, right lower lobe, but official reading was mild congestion. EKG showed normal sinus, right bundle-branch block, inferior wall [place] of undetermined age.. Yesterday, the patient had echocardiography done that showed ejection fraction of 45% to 50%, mild apical hypokinesis, 45% to 50% mild MR, mild TR, ____ pressure 25. Rule out anoxic encephalopathy, elevated WBC; according to heme/onc, it is a leukemoid reaction. RECOMMENDATIONS: We will discontinue IV amiodarone, start p.o. amiodarone with hydralazine p.r.n as needed. Low dose Cardizem p.o. is changed from IV Cardizem for blood pressure. Continue gentle Lasix. Lovenox started 80 mg subcu q. 12, wean of the vent as tolerated. We will monitor closely. Continue Plavix. If the patient gets extubated and no evidence of anoxic encephalopathy, we will consider cardiac catheterization depending upon the patient's condition after intubation. We will also lower the metoprolol to 50 mg daily to prevent the episode of bradycardia because the patient is on Cardizem, amiodarone, and metoprolol. Also, we will discontinue Imdur because of the low blood pressure. We will repeat the lab in morning. We will supplement potassium 40 mEq and get the magnesium level and supplement magnesium as well. We will change metoprolol succinate 100 mg to metoprolol tartrate 25 mg b.i.d. and repeat the mag level in the morning. We will give KCl elixir 40 mEq. We will follow with you. Thank you, Dr. Brooks, for providing me the opportunity in taking care of the patient, Tan Murillo. Francisca Almazan MD
--- NOTE | 2017-01-14 16:35 | CP.PCM.PN ---
<MAXWELL MUÑOZ - Last Filed: 01/14/17 16:23> Subjective - Date & Time of Evaluation Date of Evaluation: 01/14/17 Time of Evaluation: 07:30 - Subjective Subjective: Maxwell Muñoz DO PGY1 - ICU Progress Note Patient seen and examined at bedside. Nurse reports decreased urine output overnight, fevers to 100.8, which improve with Ofirmev, as well as an episode of desaturation, which improved with repositioning of the ET tube. Patient remains intubated, sedated on propofol. Unresponsive to verbal or tactile stimuli. Objective - Vital Signs/Intake and Output Vital Signs (last 24 hours): Temp Pulse Resp BP Pulse Ox 98.5 F 111 H 38 H 112/45 L 92 L 01/14/17 06:00 01/14/17 13:21 01/14/17 08:04 01/14/17 13:21 01/14/17 12:00 Intake and Output: 01/14/17 01/14/17 06:59 18:59 Intake Total 3366 110 Output Total 550 Balance 2816 110 - Medications Medications: Current Medications Amiodarone HCl (Cordarone) 200 mg PO BID [facility] Last Admin: 01/14/17 10:18 Dose: 200 mg Aspirin (Aspirin Chewable) 81 mg PO DAILY [facility] Last Admin: 01/14/17 09:49 Dose: 81 mg Clopidogrel Bisulfate (Plavix) 75 mg PO DAILY [facility] Last Admin: 01/14/17 09:49 Dose: 75 mg Diltiazem HCl (Cardizem) 60 mg PO QID [facility] Last Admin: 01/14/17 13:21 Dose: 60 mg Enoxaparin Sodium (Lovenox) 80 mg SC Q12H [facility] PRN Reason: Protocol Last Admin: 01/14/17 09:50 Dose: 80 mg Fentanyl (Fentanyl) 50 mcg IVP Q2H PRN PRN Reason: Pain, severe (8-10) Hydralazine HCl (Apresoline) 10 mg IVP Q6 PRN PRN Reason: for SBP>170 & or Diastolic>100 Hydrocortisone Sodium Succinate (Solu-Cortef) 100 mg IVP Q12H [facility] Last Admin: 01/14/17 10:27 Dose: 100 mg Sodium Chloride (Sodium Chloride 0.9%) 1,000 mls @ 100 mls/hr IV .Q10H [facility] Last Admin: 01/14/17 13:21 Dose: 100 mls/hr Daptomycin 510 mg/ Sodium (Chloride) 100 mls @ 100 mls/hr IV Q24H [facility] Stop: 01/17/17 10:01 Last Admin: 01/14/17 10:30 Dose: 100 mls/hr Meropenem 1g/NS 100mL IVPB (Meropenem 1g/Ns 100ml Ivpb) 1 gm in 100 mls @ 100 mls/hr IVPB Q12 [facility] PRN Reason: Protocol Stop: 01/20/17 10:16 Last Admin: 01/14/17 09:53 Dose: 100 mls/hr Propofol (Diprivan) 1,000 mg in 100 mls @ 2.545 mls/hr IV .Q24H PRN; Protocol; 5 MCG/KG/MIN PRN Reason: TITRATE PER MD ORDER Last Titration: 01/14/17 15:37 Dose: 40 mcg/kg/min, 20.357 mls/hr Isosorbide Mononitrate (Imdur) 60 mg PO DAILY [facility] Last Admin: 01/14/17 09:49 Dose: 60 mg Labetalol HCl (Trandate) 10 mg IV Q3H PRN PRN Reason: Systolic Blood Pressure Levalbuterol HCl (Xopenex) 0.63 mg IH [id number] [facility] Last Admin: 01/14/17 13:12 Dose: 0.63 mg Levalbuterol HCl (Xopenex) 0.63 mg IH Q2 PRN PRN Reason: Shortness of Breath Last Admin: 01/14/17 11:25 Dose: 0.63 mg Lorazepam (Ativan) 0.5 mg PO HS PRN; Protocol PRN Reason: anxiety/insomnia Last Admin: 01/11/17 21:16 Dose: 0.5 mg Metoprolol Tartrate (Lopressor) 25 mg PO BID [facility] Pantoprazole Sodium (Protonix Inj) 40 mg IVP DAILY [facility] Last Admin: 01/14/17 09:51 Dose: 40 mg Tamsulosin HCl (Flomax) 0.4 mg PO DAILY [facility] Last Admin: 01/14/17 09:49 Dose: 0.4 mg - Labs Labs: 01/14/17 05:45 01/14/17 05:45 PT 13.7 Seconds (9.9-11.8) H 01/12/17 04:00 INR 1.27 (0.93-1.08) H 01/12/17 04:00 APTT 32.7 Seconds (23.7-30.8) H 01/12/17 04:00 - Constitutional Appears: Chronically Ill, Other (Intubated, sedated) - Head Exam Head Exam: ATRAUMATIC, NORMOCEPHALIC - Eye Exam Eye Exam: PERRL - ENT Exam ENT Exam: Mucous Membranes Moist - Neck Exam Neck Exam: absent: Lymphadenopathy, Thyromegaly - Respiratory Exam Respiratory Exam: Rhonchi (severe, diffuse) Additional comments: Tachypnic, overbreathing the ventilator. Breathing uncomfortably, using accessory muscles. - Cardiovascular Exam Cardiovascular Exam: RRR, +S1, +S2 - GI/Abdominal Exam GI & Abdominal Exam: Soft. absent: Firm, Guarding, Rigid - Extremities Exam Extremities Exam: Pedal Edema (trace) Additional comments: Mottled skin, disseminated bruising - Neurological Exam Additional comments: Sedated on propofol - Skin Skin Exam: Dry, Intact Additional comments: Diffuse bruising, mottled Assessment and Plan - Assessment and Plan (Free Text) Assessment: This is an 86 yo M with PMH of hemolytic anemia, CAD, COPD, CABG, hx of diverticulitis, gastritis, GERD, BPH, and Asbestosis who is currently intubated, s/p cardiac arrest with ROSC Plan: Neuro: - Intubated, sedated on propofol - Was off sedation shortly this morning, patient was obeying commands, responsive to verbal stimuli - Maintain normothermia - EEG showed diffuse slowing consistent with hypoxic injury. MRI brain shows cortical ribboning in the parietal region consistent with cortical ischemia. - Order repeat head CT today to evaluate for any changes that my implicate a cause for his mental status change - Neuro (Vamshi) consulted, all recs appreciated - Currently unresponsive to verbal and tactile stimuli, but opens eyes to painful stimuli, and has some flexural withdrawal to pain, with intact pupillary , corneal, gag, and cough reflexes Cardio: - s/p cardiac arrest, ROSC after CPR, 2x epi, 1x shock, 1x calcium, 1x sodium bicarb - On amiodarone, Cardizem QID, hydralazine PRN - On ASA, plavix, imdur, metoprolol - maintain MAP > 65, no pressor support currently required - On NS 100cc/hr - Trop 0.74, likely elevated 2/2 cardiac arrest and CPR, repeat trop downtrending - Started on Lovenox 80 Q12 by cardio - Cardio consulted, all recs appreciated Pulm: - Intubated and ventilated PRVC 100%/ - Repeat ABG shows persistent metabolic acidosis with appropriately compensated respiratory alkalosis (persistently overbreathing the vent), but remains hypoxic , even on 70% FiO2 - Today, suddenly desaturated to 80%, on 60%/, did not respond to repositioning, nebulizer treatment, required increased FiO2 and peep which brought sat back up to 90's. - Repeat CXR shows little change since yesterday, persistent infiltrate with likely vascular congestion. - Will diurese with lasix to reduce fluid overload - Conservative O2 management, maintain SaO2 > 92% and paO2 > 60 - low tidal volumes, VAP bundle, protective lung ventilation strategy GI: - NPO - Protonix IVP for GI ppx - OGT in place for PO meds Renal: - Araiza in place. Still had low urine output with a significant positive fluid balance overnight. Started lasix, patient started producing urine, up to 1L as of this note - Strict I's & O's - monitor and replete electrolytes as needed - maintain euglycemia and euvolemia Heme: - H/H stable - Persistent Leukocytosis, interpreted as leukemoid reaction per Hem/Onc - Hem/Onc on consult, all recs appreciated - no signs of active bleeding, continue to monitor ID: - Persistent leukocytosis, afebrile - Cont daptomycin, Merrem, per ID - ID (Tita) consulted, all recs appreciated - Maintain normothermia Ppx: Protonix for GI, SCDs for DVT Patient seen, reviewed, discussed with attending <Kayla MORALES,Ernie H - Last Filed: 01/14/17 19:08> Objective - Vital Signs/Intake and Output Vital Signs (last 24 hours): Temp Pulse Resp BP Pulse Ox 99.6 F 103 H 77 H 104/46 L 100 01/14/17 16:00 01/14/17 18:15 01/14/17 14:55 01/14/17 18:00 01/14/17 18:00 Intake and Output: 01/14/17 01/15/17 18:59 06:59 Intake Total 1562 Output Total 1900 Balance -338 - Medications Medications: Current Medications Amiodarone HCl (Cordarone) 200 mg PO BID [facility] Last Admin: 01/14/17 17:47 Dose: 200 mg Aspirin (Aspirin Chewable) 81 mg PO DAILY [facility] Last Admin: 01/14/17 09:49 Dose: 81 mg Clopidogrel Bisulfate (Plavix) 75 mg PO DAILY [facility] Last Admin: 01/14/17 09:49 Dose: 75 mg Diltiazem HCl (Cardizem) 60 mg PO QID [facility] Last Admin: 01/14/17 17:47 Dose: 60 mg Enoxaparin Sodium (Lovenox) 80 mg SC Q12H [facility] PRN Reason: Protocol Last Admin: 01/14/17 09:50 Dose: 80 mg Fentanyl (Fentanyl) 50 mcg IVP Q2H PRN PRN Reason: Pain, severe (8-10) Hydralazine HCl (Apresoline) 10 mg IVP Q6 PRN PRN Reason: for SBP>170 & or Diastolic>100 Hydrocortisone Sodium Succinate (Solu-Cortef) 100 mg IVP Q12H [facility] Last Admin: 01/14/17 10:27 Dose: 100 mg Sodium Chloride (Sodium Chloride 0.9%) 1,000 mls @ 100 mls/hr IV .Q10H [facility] Last Admin: 01/14/17 13:21 Dose: 100 mls/hr Daptomycin 510 mg/ Sodium (Chloride) 100 mls @ 100 mls/hr IV Q24H [facility] Stop: 01/17/17 10:01 Last Admin: 01/14/17 10:30 Dose: 100 mls/hr Meropenem 1g/NS 100mL IVPB (Meropenem 1g/Ns 100ml Ivpb) 1 gm in 100 mls @ 100 mls/hr IVPB Q12 [facility] PRN Reason: Protocol Stop: 01/20/17 10:16 Last Admin: 01/14/17 09:53 Dose: 100 mls/hr Propofol (Diprivan) 1,000 mg in 100 mls @ 2.545 mls/hr IV .Q24H PRN; Protocol; 5 MCG/KG/MIN PRN Reason: TITRATE PER MD ORDER Last Admin: 01/14/17 18:57 Dose: 35 mcg/kg/min, 17.813 mls/hr Isosorbide Mononitrate (Imdur) 60 mg PO DAILY [facility] Last Admin: 01/14/17 09:49 Dose: 60 mg Labetalol HCl (Trandate) 10 mg IV Q3H PRN PRN Reason: Systolic Blood Pressure Levalbuterol HCl (Xopenex) 0.63 mg IH [id number] [facility] Last Admin: 01/14/17 13:12 Dose: 0.63 mg Levalbuterol HCl (Xopenex) 0.63 mg IH Q2 PRN PRN Reason: Shortness of Breath Last Admin: 01/14/17 11:25 Dose: 0.63 mg Lorazepam (Ativan) 0.5 mg PO HS PRN; Protocol PRN Reason: anxiety/insomnia Last Admin: 01/11/17 21:16 Dose: 0.5 mg Metoprolol Tartrate (Lopressor) 25 mg PO BID [facility] Last Admin: 01/14/17 18:30 Dose: Not Given Pantoprazole Sodium (Protonix Inj) 40 mg IVP DAILY [facility] Last Admin: 01/14/17 09:51 Dose: 40 mg Tamsulosin HCl (Flomax) 0.4 mg PO DAILY [facility] Last Admin: 01/14/17 09:49 Dose: 0.4 mg - Labs Labs: 01/14/17 05:45 01/14/17 05:45 PT 13.7 Seconds (9.9-11.8) H 01/12/17 04:00 INR 1.27 (0.93-1.08) H 01/12/17 04:00 APTT 32.7 Seconds (23.7-30.8) H 01/12/17 04:00 Attending/Attestation - Attestation I have personally seen and examined this patient.: Yes I have fully participated in the care of the patient.: Yes I have reviewed all pertinent clinical information, including history, physical exam and plan: Yes Notes (Text): 01/14/17 19:05 86 y/o M s/p Cardiac arrest and hypoxemic respiratory failure . Neuro function showed mild improvement , able to follow simple commands Ct head done today without any new findings. EEG shows slowing Hypoxemia noted today with elevated RR . Repeat ABg needed and titrate PAo2 > 60. Family meeting held to discuss trach / PEg and placement. Palliative care on board. dvt p amiodarone changed to P>o no further V-tach noted. cc time 65 min
--- NOTE | 2017-01-14 17:19 | RAD ---
HISTORY: SOB COMPARISON: Comparison made with prior study 01/14/[address] scan of the chest dated 08/26/2016. FINDINGS: LUNGS: In situ ETT, the tip of which lies approximately 4.04 cm above melina. NGT is present, the tip of which overlies the left mid upper abdomen. No change right-sided IJ MediPort. Re- demonstrated are bilateral multiple varying sized and shaped calcified pleural plaques. . There may also be some mild bibasilar atelectasis ; the possibility of superimposed infiltrate not excluded. PLEURA: No significant pleural effusion identified, no pneumothorax apparent. CARDIOVASCULAR: Sternotomy wires again noted. OSSEOUS STRUCTURES: No significant abnormalities. VISUALIZED UPPER ABDOMEN: Normal. OTHER FINDINGS: None. IMPRESSION: Support lines and tubes as above. Multiple on varying size and shape calcified pleural plaques Re- demonstrated are bilateral multiple varying sized and shaped calcified pleural plaques. . There may also be some mild bibasilar atelectasis ; the possibility of superimposed infiltrate not excluded.
--- NOTE | 2017-01-14 19:12 | CP.PCM.CON ---
History of Present Illness - History of Present Illness History of Present Illness: Surgery: Dr. Cooper Reason for consult: trach and PEG evaluation HPI: Patient is an 86 y/o male currently intubated and sedated in ICU s/p cardiac arrest. History obtained from prior documentation. Patient was admitted on 01/07 for severe back pain and found to have compression fracture. Patient suddenly went into cardiac arrest on 01/12 and has ROSC after 11 mins of ACLS. Patient was intubated and transferred into ICU in which he has been receiving care since episode. Patient currently on 100% FiO2 and 10 PEEP vent settings as well as lovenox, asa, and plavix for acute cardiac event. PMH: CAD, hemolytic anemia on prednisone (leukocytosis chronic), HTN, COPD, renal cysts PSH: CABG, cholecystectomy, right IJ portacath for frequent infusion/poor access Social: unobtainable Review of Systems - Review of Systems Systems not reviewed;Unavailable: Intubated Past Patient History - Infectious Disease Hx of Infectious Diseases: None - Tetanus Immunizations Tetanus Immunization: Unknown - Past Medical History & Family History Past Medical History?: Yes - Past Social History Smoking Status: Former Smoker - CARDIAC Hx Cardiac Disorders: Yes (CAD, ACS, CABG 3 vessels, [place]) Hx Congestive Heart Failure: Yes Hx Hypercholesterolemia: Yes Hx Hypertension: Yes - PULMONARY Hx Chronic Obstructive Pulmonary Disease (COPD): Yes - NEUROLOGICAL Hx Neurological Disorder: Yes Hx Dementia: Yes - HEENT Hx HEENT Problems: (WEARS RX GLASSES, [place]) - RENAL Hx Chronic Kidney Disease: No - ENDOCRINE/METABOLIC Hx Endocrine Disorders: No - HEMATOLOGICAL/ONCOLOGICAL Hx Blood Disorders: Yes (blood transfusion) Hx Anemia: Yes (hemolytic anemia) - INTEGUMENTARY Other/Comment: cells removed on body as per patient and , multiple skin, discolorations, nodules and dry patches of skin to arms and legs, multiple tatoos - MUSCULOSKELETAL/RHEUMATOLOGICAL Hx Arthritis: Yes - GASTROINTESTINAL Hx Gastrointestinal Disorders: Yes (GASTRITIS) Hx Diverticulitis: Yes Hx Gall Bladder Disease: Yes Hx Gastroesophageal Reflux: Yes - GENITOURINARY/GYNECOLOGICAL Hx Genitourinary Disorders: Yes (URINARY FREQUENCY) Hx Prostate Problems: Yes (BPH) Hx Urinary Tract Infection: Yes - PSYCHIATRIC Hx Anxiety: Yes Hx Emotional Abuse: No Hx Physical Abuse: No Hx Substance Use: No Other/Comment: pt becoming more agresive and disoriented at home - SURGICAL HISTORY Hx Cholecystectomy: Yes Hx Coronary Stent: Yes Hx Open Heart Surgery: Yes (3 vessel) Other/Comment: excision r hand lesion 07/2016, scalp lesion, 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, pt a hard stick - ANESTHESIA Hx Anesthesia: Yes Hx Anesthesia Reactions: No Hx Malignant Hyperthermia: No Meds Allergies/Adverse Reactions: Allergies Allergy/AdvReac Type Severity Reaction Status Date / Time No Known Allergies Allergy Verified 01/07/17 11:29 - Medications Medications: Current Medications Amiodarone HCl (Cordarone) 200 mg PO BID [facility] Last Admin: 01/14/17 17:47 Dose: 200 mg Aspirin (Aspirin Chewable) 81 mg PO DAILY [facility] Last Admin: 01/14/17 09:49 Dose: 81 mg Clopidogrel Bisulfate (Plavix) 75 mg PO DAILY [facility] Last Admin: 01/14/17 09:49 Dose: 75 mg Diltiazem HCl (Cardizem) 60 mg PO QID [facility] Last Admin: 01/14/17 17:47 Dose: 60 mg Enoxaparin Sodium (Lovenox) 80 mg SC Q12H [facility] PRN Reason: Protocol Last Admin: 01/14/17 09:50 Dose: 80 mg Fentanyl (Fentanyl) 50 mcg IVP Q2H PRN PRN Reason: Pain, severe (8-10) Hydralazine HCl (Apresoline) 10 mg IVP Q6 PRN PRN Reason: for SBP>170 & or Diastolic>100 Hydrocortisone Sodium Succinate (Solu-Cortef) 100 mg IVP Q12H [facility] Last Admin: 01/14/17 10:27 Dose: 100 mg Sodium Chloride (Sodium Chloride 0.9%) 1,000 mls @ 100 mls/hr IV .Q10H [facility] Last Admin: 01/14/17 13:21 Dose: 100 mls/hr Daptomycin 510 mg/ Sodium (Chloride) 100 mls @ 100 mls/hr IV Q24H [facility] Stop: 01/17/17 10:01 Last Admin: 01/14/17 10:30 Dose: 100 mls/hr Meropenem 1g/NS 100mL IVPB (Meropenem 1g/Ns 100ml Ivpb) 1 gm in 100 mls @ 100 mls/hr IVPB Q12 [facility] PRN Reason: Protocol Stop: 01/20/17 10:16 Last Admin: 01/14/17 09:53 Dose: 100 mls/hr Propofol (Diprivan) 1,000 mg in 100 mls @ 2.545 mls/hr IV .Q24H PRN; Protocol; 5 MCG/KG/MIN PRN Reason: TITRATE PER MD ORDER Last Admin: 01/14/17 18:57 Dose: 35 mcg/kg/min, 17.813 mls/hr Isosorbide Mononitrate (Imdur) 60 mg PO DAILY [facility] Last Admin: 01/14/17 09:49 Dose: 60 mg Labetalol HCl (Trandate) 10 mg IV Q3H PRN PRN Reason: Systolic Blood Pressure Levalbuterol HCl (Xopenex) 0.63 mg IH [id number] [facility] Last Admin: 01/14/17 13:12 Dose: 0.63 mg Levalbuterol HCl (Xopenex) 0.63 mg IH Q2 PRN PRN Reason: Shortness of Breath Last Admin: 01/14/17 11:25 Dose: 0.63 mg Lorazepam (Ativan) 0.5 mg PO HS PRN; Protocol PRN Reason: anxiety/insomnia Last Admin: 01/11/17 21:16 Dose: 0.5 mg Metoprolol Tartrate (Lopressor) 25 mg PO BID [facility] Last Admin: 01/14/17 18:30 Dose: Not Given Pantoprazole Sodium (Protonix Inj) 40 mg IVP DAILY [facility] Last Admin: 01/14/17 09:51 Dose: 40 mg Tamsulosin HCl (Flomax) 0.4 mg PO DAILY [facility] Last Admin: 01/14/17 09:49 Dose: 0.4 mg Physical Exam - Constitutional Additional comments: intubated sedated in ICU - Head Exam Head Exam: ATRAUMATIC - Eye Exam Eye Exam: Normal appearance - ENT Exam ENT Exam: Mucous Membranes Dry Additional comments: ET and OGT in place - Respiratory Exam Additional comments: requiring 100% FiO2 and 10 PEEP vent settings - Cardiovascular Exam Cardiovascular Exam: absent: Tachycardia - GI/Abdominal Exam GI & Abdominal Exam: Soft. absent: Distended, Tenderness - Extremities Exam Extremities exam: Positive for: normal inspection. Negative for: calf tenderness - Skin Skin Exam: Dry, Normal Color, Pallor Results - Vital Signs Recent Vital Signs: Last Vital Signs Temp 99.6 F 01/14/17 16:00 Pulse 103 H 01/14/17 18:15 Resp 77 H 01/14/17 14:55 BP 104/46 L 01/14/17 18:00 Pulse Ox 100 01/14/17 18:00 - Labs Result Diagrams: 01/14/17 05:45 01/14/17 05:45 Labs: Laboratory Results - last 24 hr 01/12/17 01/12/17 01/13/17 03:31 15:35 18:34 WBC RBC Hgb Hct MCV MCH MCHC RDW Plt Count MPV Neutrophils % (Manual) Band Neutrophils % Lymphocytes % (Manual) Atypical Lymphs % Monocytes % (Manual) Metamyelocytes % Myelocytes % Toxic Granulation Platelet Evaluation Polychromasia Hypochromasia Poikilocytosis (manual Anisocytosis (manual) Ovalocytes Rouleaux pCO2 pO2 HCO3 ABG pH ABG Total CO2 ABG O2 Saturation ABG Base Excess ABG Potassium VBG pH VBG pCO2 VBG HCO3 VBG Total CO2 VBG O2 Sat (Calc) VBG Base Excess VBG Potassium Sodium Chloride Glucose Lactate Mechanical Rate FiO2 Tidal Volume PEEP Potassium Carbon Dioxide Anion Gap BUN Creatinine Est GFR ( Amer) Est GFR (Non-Af Amer) POC Glucose (mg/dL) 172 H 137 H Random Glucose Hemoglobin A1c Calcium Phosphorus Magnesium Total Bilirubin AST ALT Alkaline Phosphatase Lactate Dehydrogenase Total Creatine Kinase Troponin I 2.76 H* D Total Protein Albumin Globulin Albumin/Globulin Ratio Triglycerides Cholesterol LDL Cholesterol Direct HDL Cholesterol TSH 3rd Generation Arterial Blood Potassium Venous Blood Potassium 01/14/17 01/14/17 01/14/17 05:45 05:45 05:45 WBC 71.9 H* RBC 3.26 L Hgb 10.5 L Hct 31.2 L MCV 95.7 MCH 32.2 MCHC 33.7 RDW 16.4 H Plt Count 251 MPV 10.8 Neutrophils % (Manual) 82 H Band Neutrophils % 2 Lymphocytes % (Manual) 2 L Atypical Lymphs % 1 H Monocytes % (Manual) 8 H Metamyelocytes % 3 Myelocytes % 2 Toxic Granulation 1+ Platelet Evaluation Normal Polychromasia Slight Hypochromasia 1+ Poikilocytosis (manual Slight Anisocytosis (manual) 1+ Ovalocytes Slight Rouleaux Slight pCO2 24 L pO2 60.0 L HCO3 15.6 L ABG pH 7.42 ABG Total CO2 16.3 L ABG O2 Saturation 96.9 ABG Base Excess -7.0 L ABG Potassium 3.9 VBG pH VBG pCO2 VBG HCO3 VBG Total CO2 VBG O2 Sat (Calc) VBG Base Excess VBG Potassium Sodium 141 141.0 Chloride 114 H 115.0 H Glucose 100 Lactate 2.1 Mechanical Rate FiO2 50.0 Tidal Volume PEEP Potassium 3.8 Carbon Dioxide 17 L Anion Gap 14 BUN 29 H Creatinine 1.4 Est GFR ( Amer) 58 Est GFR (Non-Af Amer) 48 POC Glucose (mg/dL) Random Glucose 84 Hemoglobin A1c Calcium 7.5 L Phosphorus 2.7 Magnesium 1.6 L Total Bilirubin 0.9 AST 55 ALT 94 H Alkaline Phosphatase 103 Lactate Dehydrogenase 1313 H Total Creatine Kinase 181 Troponin I 2.32 H* Total Protein 5.6 L Albumin 2.5 L Globulin 3.1 Albumin/Globulin Ratio 0.8 L Triglycerides 148 Cholesterol 84 L LDL Cholesterol Direct 38 HDL Cholesterol 15 L TSH 3rd Generation Arterial Blood Potassium 3.9 Venous Blood Potassium 01/14/17 01/14/17 01/14/17 05:45 05:45 10:55 WBC RBC Hgb Hct MCV MCH MCHC RDW Plt Count MPV Neutrophils % (Manual) Band Neutrophils % Lymphocytes % (Manual) Atypical Lymphs % Monocytes % (Manual) Metamyelocytes % Myelocytes % Toxic Granulation Platelet Evaluation Polychromasia Hypochromasia Poikilocytosis (manual Anisocytosis (manual) Ovalocytes Rouleaux pCO2 pO2 51 HCO3 ABG pH ABG Total CO2 ABG O2 Saturation ABG Base Excess ABG Potassium VBG pH 7.43 VBG pCO2 26.0 L VBG HCO3 17.3 L VBG Total CO2 18.1 L VBG O2 Sat (Calc) 92.2 H VBG Base Excess -5.4 L VBG Potassium 4.1 Sodium 143.0 Chloride 114.0 H Glucose 105 Lactate 1.8 Mechanical Rate FiO2 21.0 Tidal Volume PEEP Potassium Carbon Dioxide Anion Gap BUN Creatinine Est GFR ( Amer) Est GFR (Non-Af Amer) POC Glucose (mg/dL) Random Glucose Hemoglobin A1c 6.5 D Calcium Phosphorus Magnesium Total Bilirubin AST ALT Alkaline Phosphatase Lactate Dehydrogenase Total Creatine Kinase Troponin I Total Protein Albumin Globulin Albumin/Globulin Ratio Triglycerides Cholesterol LDL Cholesterol Direct HDL Cholesterol TSH 3rd Generation 1.4 Arterial Blood Potassium Venous Blood Potassium 4.1 01/14/17 15:40 WBC RBC Hgb Hct MCV MCH MCHC RDW Plt Count MPV Neutrophils % (Manual) Band Neutrophils % Lymphocytes % (Manual) Atypical Lymphs % Monocytes % (Manual) Metamyelocytes % Myelocytes % Toxic Granulation Platelet Evaluation Polychromasia Hypochromasia Poikilocytosis (manual Anisocytosis (manual) Ovalocytes Rouleaux pCO2 27 L pO2 54.0 L HCO3 15.6 L ABG pH 7.37 ABG Total CO2 16.4 L ABG O2 Saturation 93.0 L ABG Base Excess -8.5 L ABG Potassium 3.5 L VBG pH VBG pCO2 VBG HCO3 VBG Total CO2 VBG O2 Sat (Calc) VBG Base Excess VBG Potassium Sodium 144.0 Chloride 116.0 H Glucose 124 H Lactate 1.6 Mechanical Rate 14 FiO2 70.0 Tidal Volume 400 PEEP 10 Potassium Carbon Dioxide Anion Gap BUN Creatinine Est GFR ( Amer) Est GFR (Non-Af Amer) POC Glucose (mg/dL) Random Glucose Hemoglobin A1c Calcium Phosphorus Magnesium Total Bilirubin AST ALT Alkaline Phosphatase Lactate Dehydrogenase Total Creatine Kinase Troponin I Total Protein Albumin Globulin Albumin/Globulin Ratio Triglycerides Cholesterol LDL Cholesterol Direct HDL Cholesterol TSH 3rd Generation Arterial Blood Potassium 3.5 L Venous Blood Potassium Assessment & Plan - Assessment and Plan (Free Text) Assessment: 86 y/o male s/p cardiac arrest and intubation on 01/12 Plan: -will discuss with family to determine if trach is desired -PEG: recommend GI consult -patient on 3x anti-thrombotic therapy s/p cardiac arrest and high vent settings requirements -would like to see vent requirements improve prior to trach placement -will follow patient clinically for now and reassess for trach at later date if patient unable to be extubated -further recs per Dr. Kenneth PARRYshannon PGY3
[2017-01-14 21:35] LABS: ARTERIAL BLOOD GAS HCO3 16.6 mmol/L (21-28); ARTERIAL BLOOD GAS PH 7.38 (7.35-7.45)
[2017-01-15] MEDS: Propofol 10 mg/ml 1,000 MG/100 ML VIAL IV PRN ×4 (01:07→21:38)
[2017-01-15] MEDS: Levalbuterol 0.63 MG/3 ML Inhal Soln UD IH SCH ×4 (02:25→21:04)
[2017-01-15 06:58] LABS: ARTERIAL BLOOD GAS HCO3 17.2 mmol/L (21-28); ARTERIAL BLOOD GAS PH 7.38 (7.35-7.45)
[2017-01-15 07:22] LABS: HEMATOCRIT 29.9 % (42.0-52.0); MEAN CELL VOLUME 94.3 fl (80.0-105.0); MEAN CORPUSCULAR HEMOGLOBIN 32.5 pg (25.0-35.0); MEAN CORPUSCULAR HGB CONC 34.4 g/dl (31.0-37.0); MEAN PLATELET VOLUME 10.8 fl (7.0-11.0); PLATELET COUNT 262 10^3/uL (120.0-450.0); RED CELL DISTRIBUTION WIDTH 16.2 % (11.5-14.5)
[2017-01-15 07:23] LABS: ADD MANUAL DIFF? YES
[2017-01-15 07:32] LABS: ALB/GLOB RATIO 0.8 (1.1-1.8); ALKALINE PHOSPHATASE 103 U/L (38-133); ALT/SGPT 68 U/L (7-56); AST/SGOT 50 U/L (15-59); BLOOD UREA NITROGEN 35 mg/dL (7-21); CALCIUM 7.5 mg/dL (8.4-10.5); CARBON DIOXIDE 19 mmol/L (21-33); CHLORIDE 115 mmol/L (98-107); GFR AFRICAN-AMERICAN > 60; GLUCOSE,RANDOM 111 mg/dL (70-110); MAGNESIUM 2.3 mg/dL (1.7-2.2); PHOSPHOROUS 3.2 mg/dL (2.5-4.5); POTASSIUM 3.2 mmol/L (3.6-5.0); SODIUM 143 mmol/L (132-148); TOTAL PROTEIN 5.7 g/dL (5.8-8.3)
[2017-01-15 07:33] LABS: WHITE BLOOD COUNT 86.4 10^3/ul (4.5-11.0)
[2017-01-15 07:44] LABS: ANISOCYTOSIS 1+; ATYPICAL LYMPHOCYTE 1 % (0.0-0.0); BAND 4 % (0-2); HYPOCHROMIA 1+; METAMYELOCYTE 1 %; MYELOCYTE 1 %; NEUTROPHIL 80 % (50.0-70.0); PLATELET ESTIMATE NORMAL (NORMAL); POLYCHROMASIA SLIGHT
[2017-01-15 07:45] LABS: LARGE PLATELETS PRESENT; TOXIC GRANULATION SLIGHT
--- NOTE | 2017-01-15 08:23 | CP.PCM.PN ---
Subjective - Date & Time of Evaluation Date of Evaluation: 01/15/17 Time of Evaluation: 07:15 - Subjective Subjective: Surgery Progress Note for Dr. Naranjo Patient seen and examined at bedside in the ICU. Remains intubated and sedated , now on propofol 35mcg/min. Sedation added after code due to patient awakening but becoming tachypnic to 40's per ICU nursing. Currently minimally responsive. Objective - Vital Signs/Intake and Output Vital Signs (last 24 hours): Temp Pulse Resp BP Pulse Ox 99 F 100 H 28 H 132/56 L 99 01/15/17 04:00 01/15/17 07:00 01/15/17 07:35 01/15/17 08:07 01/15/17 07:35 Intake and Output: 01/15/17 01/15/17 06:59 18:59 Intake Total 1630 Output Total 700 Balance 930 - Medications Medications: Current Medications Amiodarone HCl (Cordarone) 200 mg PO BID [facility] Last Admin: 01/14/17 17:47 Dose: 200 mg Aspirin (Aspirin Chewable) 81 mg PO DAILY [facility] Last Admin: 01/14/17 09:49 Dose: 81 mg Clopidogrel Bisulfate (Plavix) 75 mg PO DAILY [facility] Last Admin: 01/14/17 09:49 Dose: 75 mg Diltiazem HCl (Cardizem) 60 mg PO QID [facility] Last Admin: 01/14/17 22:38 Dose: 60 mg Enoxaparin Sodium (Lovenox) 80 mg SC Q12H [facility] PRN Reason: Protocol Last Admin: 01/14/17 20:20 Dose: 80 mg Fentanyl (Fentanyl) 50 mcg IVP Q2H PRN PRN Reason: Pain, severe (8-10) Hydralazine HCl (Apresoline) 10 mg IVP Q6 PRN PRN Reason: for SBP>170 & or Diastolic>100 Hydrocortisone Sodium Succinate (Solu-Cortef) 100 mg IVP Q12H [facility] Last Admin: 01/14/17 22:38 Dose: 100 mg Daptomycin 510 mg/ Sodium (Chloride) 100 mls @ 100 mls/hr IV Q24H [facility] Stop: 01/17/17 10:01 Last Admin: 01/14/17 10:30 Dose: 100 mls/hr Meropenem 1g/NS 100mL IVPB (Meropenem 1g/Ns 100ml Ivpb) 1 gm in 100 mls @ 100 mls/hr IVPB Q12 [facility] PRN Reason: Protocol Stop: 01/20/17 10:16 Last Admin: 01/14/17 22:39 Dose: 100 mls/hr Propofol (Diprivan) 1,000 mg in 100 mls @ 2.545 mls/hr IV .Q24H PRN; Protocol; 5 MCG/KG/MIN PRN Reason: TITRATE PER MD ORDER Last Admin: 01/15/17 06:45 Dose: 35 mcg/kg/min, 17.813 mls/hr Isosorbide Mononitrate (Imdur) 60 mg PO DAILY [facility] Last Admin: 01/14/17 09:49 Dose: 60 mg Labetalol HCl (Trandate) 10 mg IV Q3H PRN PRN Reason: Systolic Blood Pressure Levalbuterol HCl (Xopenex) 0.63 mg IH [id number] [facility] Last Admin: 01/15/17 07:29 Dose: 0.63 mg Levalbuterol HCl (Xopenex) 0.63 mg IH Q2 PRN PRN Reason: Shortness of Breath Last Admin: 01/14/17 11:25 Dose: 0.63 mg Lorazepam (Ativan) 0.5 mg PO HS PRN; Protocol PRN Reason: anxiety/insomnia Last Admin: 01/11/17 21:16 Dose: 0.5 mg Metoprolol Tartrate (Lopressor) 25 mg PO BID [facility] Last Admin: 01/14/17 18:30 Dose: Not Given Pantoprazole Sodium (Protonix Inj) 40 mg IVP DAILY [facility] Last Admin: 01/14/17 09:51 Dose: 40 mg Tamsulosin HCl (Flomax) 0.4 mg PO DAILY [facility] Last Admin: 01/14/17 09:49 Dose: 0.4 mg - Labs Labs: 01/15/17 06:15 01/15/17 06:15 PT 13.7 Seconds (9.9-11.8) H 01/12/17 04:00 INR 1.27 (0.93-1.08) H 01/12/17 04:00 APTT 32.7 Seconds (23.7-30.8) H 01/12/17 04:00 - Constitutional Appears: No Acute Distress, Chronically Ill, Other (Grossly ill-appearing) - Head Exam Head Exam: ATRAUMATIC, NORMAL INSPECTION, NORMOCEPHALIC - Eye Exam Eye Exam: absent: Conjunctival injection, EOMI (not following commands, no movement away from direct light challenge for PERRL assessment, eyes closes but easily opened without resistance), Scleral icterus Pupil Exam: absent: Irregular, Unequal Additional comments: Near-pinpoint pupils but some response and constriction to direct light challenge, equal constriction bilaterally - ENT Exam ENT Exam: Mucous Membranes Moist Additional comments: ETT and OGT in place, OGT with yellow-green bile in tubing (capped tube, not on suction) - Neck Exam Additional comments: Passive ROM intact, not holding head rigid - Respiratory Exam Respiratory Exam: Decreased Breath Sounds (mildly decreased breath sounds in all fox). absent: Accessory Muscle Use, Chest Wall Tenderness, Clear to Ausculation Bilateral, Rales, Rhonchi, Wheezes, NORMAL BREATHING PATTERN ( tachypnic (20's-30's)) - Cardiovascular Exam Cardiovascular Exam: REGULAR RHYTHM, RRR, +S1, +S2. absent: Bradycardia, Tachycardia, Irregular Rhythm, +S4 - GI/Abdominal Exam GI & Abdominal Exam: absent: Firm, Rigid - Exam Additional comments: Araiza in place, draining clear yellow urine - Extremities Exam Additional comments: wearing weight offloading boots, no gross pedal edema, faint palpable bilateral dorsalis pedis pulses - Neurological Exam Neurological Exam: absent: Alert, Awake Additional comments: Intubated and sedated, not following commands, not moving eyes to avoid direct light challenge, some pupillary reaction to light, bilateral plantar reflex intact - Psychiatric Exam Additional comments: unable to assess due to intubation and sedation - Skin Additional comments: diffusely scatter echymoses throughout body, both arms grossly bruised, midline chest scar (CABG) appears unchanged Assessment and Plan - Assessment and Plan (Free Text) Assessment: This is an 86 yo M with PMH of hemolytic anemia, CAD, COPD, CABG, hx of diverticulitis, gastritis, GERD, BPPH, and Asbestosis who was transferred to the ICU s/p cardiac arrest with ROSC. Consulted for trach. Plan: -pending final determination by family if they wish to pursue -PEG: recommend GI consult -high vent settings requirements improved: PEEP still at 10 but FiO2 decreased to 60%, however patient remains on 3x anti-thrombotic therapy s/p cardiac arrest (ASA, Plavix, Lovenox) and should remain so -Needs to be off plavix for 5 days before procedure, but given cardiac event, necessary for patient to remain on plavix -will follow patient clinically for now and reassess for trach at later date if patient unable to be extubated, ok to remain intubated for between 10-14 days -further recs per Dr. Cooper Will discuss with Dr. Cooper
--- NOTE | 2017-01-15 09:16 | RAD ---
HISTORY: Intub COMPARISON: 01/14/2017 FINDINGS: LUNGS: The endotracheal and nasogastric tubes are in satisfactory position. PLEURA: No significant pleural effusion identified, no pneumothorax apparent. CARDIOVASCULAR: Mild vascular congestion OSSEOUS STRUCTURES: No significant abnormalities. VISUALIZED UPPER ABDOMEN: Normal. OTHER FINDINGS: None. IMPRESSION: Endotracheal tube and nasogastric tube in satisfactory position
[2017-01-15] MEDS ORDERED: Sodium Bicarbonate (8.4%) 50 Meq Syringe IVP ONE ×2 (09:53→09:54)
[2017-01-15] MEDS: Meropenem 1g/NS 100mL IVPB 1 GM/100 ML PIGGYBACK IVPB SCH ×2 (09:54→21:27)
[2017-01-15] MEDS: Enoxaparin 80 mg Syringe SC SCH (09:54)
[2017-01-15] MEDS ORDERED: Potassium Chloride 20 mEq/15 ml LIQ UD PO STA (10:06)
[2017-01-15] MEDS: DAPTOmycin 510 MG in Sodium Chloride 0.9% 100 ML IV SCH (10:23)
--- NOTE | 2017-01-15 10:38 | PN ---
DATE: The patient is in the critical care unit. SUBJECTIVE: This is an 86-year-old gentleman who had a cardiac arrest and was intubated and admitted to the critical care unit for further management. The patient's past history is significant that he has had mild dementia. The patient had chronic obstructive lung disease, asbestosis, coronary artery disease, multiple angioplasties, prostate enlargement with prostatic disorder and retention of urine. The patient has history of degenerative arthritis, recent fracture of T12 vertebrae with acute pain in the lower back and left side of the abdomen. The patient is seen this morning. He is unresponsive, on Diprivan in the critical care unit. His vital signs are controlled with medications. His pulse is 92, blood pressure 132/56, respirations are controlled by the respirator. His O2 sat is 99%, but he is on 100% oxygen. The patient medications are given to him by IV method. The patient is on the antibiotic daptomycin. The patient is on hydralazine for control of blood pressure. The patient is on Cardizem for control of heart rate. The patient is on amiodarone 200 mg b.i.d., and daptomycin q. 12 hours. His blood work, white count is 86,000. This pseudoleukemic phenomenon is being noted from the time the patient was admitted and he has had elevated white count several weeks even prior to being admitted to the hospital. The patient's differential shows shift to the left which is consistent with an infection and that establishes a sepsis. The patient's overall prognosis is very poor. The patient has had a neurological evaluation and we will continue current management and we will follow up with jd edwards consultant's management plan. David Pavon MD [facility]
--- NOTE | 2017-01-15 13:50 | PN ---
DATE: 01/15/2017 REASON FOR CONSULTATION: Followup coronary artery disease, status post found unresponsive CPR, status post intubated, rule out anoxic encephalopathy SUBJECTIVE: The patient is still being intubated, sedated, minimal response to verbal stimuli. OBJECTIVE: GENERAL: Intubated, not in apparent distress, getting meds through the NG tube. VITAL SIGNS: Temperature afebrile, heart rate 99, blood pressure 137/46. HEENT: PERRLA. Extraocular muscles intact. NECK: Supple. No carotid bruit or thyromegaly. CHEST: Clear to auscultation. HEART: S1 and S2 regular. ABDOMEN: Soft. EXTREMITIES: Clubbing and cyanosis negative. LABORATORY DATA: Blood workup as follows: WBC 86.4, hemoglobin 10.8, hematocrit 29.9, platelet count 262. Chemistry shows sodium 140, potassium 3.2, chloride 115, carbon dioxide 19, anion gap of 12, BUN 35, creatinine 1.3. Total protein 5.7, albumin 2.5, albumin-globulin ration of 0.8. IMPRESSION: A protein-calorie malnutrition moderate, which is not present on admission, hypokalemia, elevated WBC, rule out sepsis, rule out leukemoid reaction, , rule out anoxic encephalopathy, history of coronary artery disease, history of CABG 22 , history of multiple stenting SVG to RCA, admitted here after an episode of unresponsive found on the floor, CPR was done, downtime reported as 11 minutes, but not sure how long the patient remained unresponsive on the floor. RECOMMENDATIONS: Continue vent management as tolerated. Amiodarone started p.o., start Cardizem, low doses of metoprolol 25 mg b.i.d. started yesterday. We will change possible non-ST elevation myocardial infarction versus troponin positive secondary to underlying coronary artery disease as well as post CPR. We changed Lovenox to DVT prophylaxis. Continue beta stacia. Continue aspirin. Continue Plavix. Overall, the patient's condition is critical. If the patient found to be anoxic encephalopathy then we will suggest to have a PEG and trach, try to wean off the vent, and the patient has weanable vent in mentally the patient found condition, we will consider cardiac catheterization once the patient get extubated versus, if the patient remains anoxic encephalopathy ,we will suggest supportive care. Thank you, Dr. Brooks, for providing me the opportunity in taking care of the patient. Francisca Almazan MD
--- NOTE | 2017-01-15 14:36 | CP.PCM.PN ---
<MAXWELL MUÑOZ - Last Filed: 01/15/17 14:30> Subjective - Date & Time of Evaluation Date of Evaluation: 01/15/17 Time of Evaluation: 07:30 - Subjective Subjective: Maxwell Muñoz DO PGY1 - ICU Progress Note Patient seen and examined at bedside. Nurse reoprts no acute events overnight. Patient remains intubated, sedated on propofol. Appears to be breathing more comfortably, without excessively overbreathing the vent. Objective - Vital Signs/Intake and Output Vital Signs (last 24 hours): Temp Pulse Resp BP Pulse Ox 99 F 99 H 28 H 137/46 L 99 01/15/17 04:00 01/15/17 09:54 01/15/17 07:35 01/15/17 09:54 01/15/17 07:35 Intake and Output: 01/15/17 01/15/17 06:59 18:59 Intake Total 1630 100 Output Total 700 Balance 930 100 - Medications Medications: Current Medications Amiodarone HCl (Cordarone) 200 mg PO BID [facility] Last Admin: 01/15/17 09:54 Dose: 200 mg Aspirin (Aspirin Chewable) 81 mg PO DAILY [facility] Last Admin: 01/15/17 09:53 Dose: 81 mg Clopidogrel Bisulfate (Plavix) 75 mg PO DAILY [facility] Last Admin: 01/15/17 09:53 Dose: 75 mg Diltiazem HCl (Cardizem) 60 mg PO QID [facility] Last Admin: 01/15/17 09:53 Dose: 60 mg Enoxaparin Sodium (Lovenox) 40 mg SC DAILY [facility] PRN Reason: Protocol Fentanyl (Fentanyl) 50 mcg IVP Q2H PRN PRN Reason: Pain, severe (8-10) Hydralazine HCl (Apresoline) 10 mg IVP Q6 PRN PRN Reason: for SBP>170 & or Diastolic>100 Hydrocortisone Sodium Succinate (Solu-Cortef) 100 mg IVP Q12H [facility] Last Admin: 01/15/17 09:56 Dose: 100 mg Daptomycin 510 mg/ Sodium (Chloride) 100 mls @ 100 mls/hr IV Q24H [facility] Stop: 01/17/17 10:01 Last Admin: 01/15/17 10:23 Dose: 100 mls/hr Meropenem 1g/NS 100mL IVPB (Meropenem 1g/Ns 100ml Ivpb) 1 gm in 100 mls @ 100 mls/hr IVPB Q12 [facility] PRN Reason: Protocol Stop: 01/20/17 10:16 Last Admin: 01/15/17 09:54 Dose: 100 mls/hr Propofol (Diprivan) 1,000 mg in 100 mls @ 2.545 mls/hr IV .Q24H PRN; Protocol; 5 MCG/KG/MIN PRN Reason: TITRATE PER MD ORDER Last Titration: 01/15/17 10:49 Dose: 30 mcg/kg/min, 15.268 mls/hr Isosorbide Mononitrate (Imdur) 60 mg PO DAILY [facility] Last Admin: 01/15/17 09:53 Dose: 60 mg Labetalol HCl (Trandate) 10 mg IV Q3H PRN PRN Reason: Systolic Blood Pressure Levalbuterol HCl (Xopenex) 0.63 mg IH [id number] [facility] Last Admin: 01/15/17 13:33 Dose: 0.63 mg Levalbuterol HCl (Xopenex) 0.63 mg IH Q2 PRN PRN Reason: Shortness of Breath Last Admin: 01/14/17 11:25 Dose: 0.63 mg Lorazepam (Ativan) 0.5 mg PO HS PRN; Protocol PRN Reason: anxiety/insomnia Last Admin: 01/11/17 21:16 Dose: 0.5 mg Metoprolol Tartrate (Lopressor) 25 mg PO BID [facility] Last Admin: 01/15/17 09:53 Dose: 25 mg Pantoprazole Sodium (Protonix Inj) 40 mg IVP DAILY [facility] Last Admin: 01/15/17 09:55 Dose: 40 mg Tamsulosin HCl (Flomax) 0.4 mg PO DAILY [facility] Last Admin: 01/15/17 09:54 Dose: 0.4 mg - Labs Labs: 01/15/17 06:15 01/15/17 06:15 PT 13.7 Seconds (9.9-11.8) H 01/12/17 04:00 INR 1.27 (0.93-1.08) H 01/12/17 04:00 APTT 32.7 Seconds (23.7-30.8) H 01/12/17 04:00 - Constitutional Appears: Chronically Ill, Other (intubated, sedated) - Head Exam Head Exam: ATRAUMATIC, NORMOCEPHALIC - Eye Exam Eye Exam: PERRL - ENT Exam ENT Exam: Mucous Membranes Moist, Normal Exam - Neck Exam Neck Exam: Normal Inspection. absent: Lymphadenopathy, Thyromegaly - Respiratory Exam Respiratory Exam: Rales (mild, improving), Rhonchi - Cardiovascular Exam Cardiovascular Exam: RRR, +S1, +S2 - GI/Abdominal Exam GI & Abdominal Exam: Soft. absent: Distended, Firm, Guarding, Rigid - Extremities Exam Extremities Exam: Pedal Edema (mild) - Neurological Exam Additional comments: sedated, on propofol 30 - Skin Skin Exam: Dry, Intact Additional comments: mottled, widespread bruising Assessment and Plan - Assessment and Plan (Free Text) Assessment: This is an 86 yo M with PMH of hemolytic anemia, CAD, COPD, CABG, hx of diverticulitis, gastritis, GERD, BPH, and Asbestosis who is currently intubated, s/p cardiac arrest with ROSC Plan: Neuro: - Intubated, sedated on propofol - Maintain normothermia - EEG showed diffuse slowing consistent with hypoxic injury. MRI brain shows cortical ribboning in the parietal region consistent with cortical ischemia. - Repeat head CT shows no acute changes - Neuro (Korya) consulted, all recs appreciated - Sedated, unable to assess reflexes, but yesterday, brainstem reflexes intact, and when taken off sedation, was obeying commands Cardio: - s/p cardiac arrest, ROSC after CPR, 2x epi, 1x shock, 1x calcium, 1x sodium bicarb - On amiodarone, Cardizem QID, hydralazine PRN - On ASA, plavix, imdur, metoprolol - maintain MAP > 65, no pressor support currently required - On NS 100cc/hr - Trop 0.74, likely elevated 2/2 cardiac arrest and CPR, repeat trop downtrending - Therapeutic Lovenox per cardio - Cardio consulted, all recs appreciated Pulm: - Intubated and ventilated PRVC 60%/10/14/400 - Repeat ABG shows improving metabolic acidosis with appropriately compensated respiratory alkalosis, improving hypoxia, on 60% FiO2 - Continues to require high FiO2 to maintain paO2>60 and increased respiratory rate - Repeat CXR shows little change since yesterday, persistent infiltrate with likely vascular congestion. - Will continue to diurese with lasix to reduce fluid overload - Conservative O2 management, maintain SaO2 > 92% and paO2 > 60 - low tidal volumes, VAP bundle, protective lung ventilation strategy GI: - NPO - Protonix IVP for GI ppx - OGT in place for PO meds - Start enteral feeds today Renal: - Araiza in place. Urine output improved on lasix. Continue diuresing to improve fluid overloaded state and respiratory status - Persistent metabolic acidosis with low HCO3, will give 100mEq bicarb to improve acid/base status - d/c maintenance fluids - Strict I's & O's - monitor and replete electrolytes as needed - Maintain euvolemia Endo: - Maintain euglycemia - Accucheck Q6 with SSI - Stress dose steroids BID - Maintain euglycemia Heme: - H/H stable - Persistent Leukocytosis, interpreted as leukemoid reaction per Hem/Onc - Hem/Onc on consult, all recs appreciated - no signs of active bleeding, continue to monitor ID: - Persistent leukocytosis, afebrile - Cont daptomycin, Merrem, per ID - ID (Tita) consulted, all recs appreciated - Maintain normothermia Ppx: Protonix for GI, Lovenox covers for DVT Patient seen, reviewed, discussed with attending <Kayla MORALES,Ernie H - Last Filed: 01/15/17 15:20> Objective - Vital Signs/Intake and Output Vital Signs (last 24 hours): Temp Pulse Resp BP Pulse Ox 99 F 96 H 28 H 117/52 L 99 01/15/17 04:00 01/15/17 14:45 01/15/17 07:35 01/15/17 14:45 01/15/17 07:35 Intake and Output: 01/15/17 01/15/17 06:59 18:59 Intake Total 1630 100 Output Total 700 Balance 930 100 - Medications Medications: Current Medications Amiodarone HCl (Cordarone) 200 mg PO BID [facility] Last Admin: 01/15/17 09:54 Dose: 200 mg Aspirin (Aspirin Chewable) 81 mg PO DAILY [facility] Last Admin: 01/15/17 09:53 Dose: 81 mg Clopidogrel Bisulfate (Plavix) 75 mg PO DAILY [facility] Last Admin: 01/15/17 09:53 Dose: 75 mg Diltiazem HCl (Cardizem) 60 mg PO QID [facility] Last Admin: 01/15/17 14:45 Dose: 60 mg Enoxaparin Sodium (Lovenox) 40 mg SC DAILY [facility] PRN Reason: Protocol Fentanyl (Fentanyl) 50 mcg IVP Q2H PRN PRN Reason: Pain, severe (8-10) Hydralazine HCl (Apresoline) 10 mg IVP Q6 PRN PRN Reason: for SBP>170 & or Diastolic>100 Hydrocortisone Sodium Succinate (Solu-Cortef) 100 mg IVP Q12H [facility] Last Admin: 01/15/17 09:56 Dose: 100 mg Daptomycin 510 mg/ Sodium (Chloride) 100 mls @ 100 mls/hr IV Q24H [facility] Stop: 01/17/17 10:01 Last Admin: 01/15/17 10:23 Dose: 100 mls/hr Meropenem 1g/NS 100mL IVPB (Meropenem 1g/Ns 100ml Ivpb) 1 gm in 100 mls @ 100 mls/hr IVPB Q12 [facility] PRN Reason: Protocol Stop: 01/20/17 10:16 Last Admin: 01/15/17 09:54 Dose: 100 mls/hr Propofol (Diprivan) 1,000 mg in 100 mls @ 2.545 mls/hr IV .Q24H PRN; Protocol; 5 MCG/KG/MIN PRN Reason: TITRATE PER MD ORDER Last Titration: 01/15/17 10:49 Dose: 30 mcg/kg/min, 15.268 mls/hr Insulin Human Regular (Humulin R Low) 0 units SC ACHS [facility] PRN Reason: Protocol Isosorbide Mononitrate (Imdur) 60 mg PO DAILY [facility] Last Admin: 01/15/17 09:53 Dose: 60 mg Labetalol HCl (Trandate) 10 mg IV Q3H PRN PRN Reason: Systolic Blood Pressure Levalbuterol HCl (Xopenex) 0.63 mg IH [id number] [facility] Last Admin: 01/15/17 13:33 Dose: 0.63 mg Levalbuterol HCl (Xopenex) 0.63 mg IH Q2 PRN PRN Reason: Shortness of Breath Last Admin: 01/14/17 11:25 Dose: 0.63 mg Lorazepam (Ativan) 0.5 mg PO HS PRN; Protocol PRN Reason: anxiety/insomnia Last Admin: 01/11/17 21:16 Dose: 0.5 mg Metoprolol Tartrate (Lopressor) 25 mg PO BID [facility] Last Admin: 01/15/17 09:53 Dose: 25 mg Pantoprazole Sodium (Protonix Inj) 40 mg IVP DAILY [facility] Last Admin: 01/15/17 09:55 Dose: 40 mg Tamsulosin HCl (Flomax) 0.4 mg PO DAILY [facility] Last Admin: 01/15/17 09:54 Dose: 0.4 mg - Labs Labs: 01/15/17 06:15 01/15/17 06:15 PT 13.7 Seconds (9.9-11.8) H 01/12/17 04:00 INR 1.27 (0.93-1.08) H 01/12/17 04:00 APTT 32.7 Seconds (23.7-30.8) H 01/12/17 04:00 Attending/Attestation - Attestation I have personally seen and examined this patient.: Yes I have fully participated in the care of the patient.: Yes I have reviewed all pertinent clinical information, including history, physical exam and plan: Yes Notes (Text): 01/15/17 15:14 86 y/o M s/p Cardiac arrest w/ respiratory failure AC/VC to keep PH> 7.3 PAO2 > 60 On Propofol, will need to have a sedation vacation to evaluate neuro status once again. On Empiric abx for aspiration Pneumonitis , all cx negative. Lasix 60mg ivp given to help with oxygenation and fio2 requirements Pallitive care and the family is discussing plans for Trach and PEG and placement. dvt P ppi cc time 65 min
--- NOTE | 2017-01-15 14:54 | CP.PCM.PN ---
Subjective - Date & Time of Evaluation Date of Evaluation: 01/15/17 Time of Evaluation: 10:25 - Subjective Subjective: Heme/ onc note for Dr Walton: Pt seen and examined at bedside in the ICU. Pt is currently sedated on propofol. Minimally responsive. Opens eye to painful stimulus. ROS unobtainable. Objective - Vital Signs/Intake and Output Vital Signs (last 24 hours): Temp Pulse Resp BP Pulse Ox 99 F 96 H 28 H 117/52 L 99 01/15/17 04:00 01/15/17 14:45 01/15/17 07:35 01/15/17 14:45 01/15/17 07:35 Intake and Output: 01/15/17 01/15/17 06:59 18:59 Intake Total 1630 100 Output Total 700 Balance 930 100 - Medications Medications: Current Medications Amiodarone HCl (Cordarone) 200 mg PO BID [facility] Last Admin: 01/15/17 09:54 Dose: 200 mg Aspirin (Aspirin Chewable) 81 mg PO DAILY [facility] Last Admin: 01/15/17 09:53 Dose: 81 mg Clopidogrel Bisulfate (Plavix) 75 mg PO DAILY [facility] Last Admin: 01/15/17 09:53 Dose: 75 mg Diltiazem HCl (Cardizem) 60 mg PO QID [facility] Last Admin: 01/15/17 14:45 Dose: 60 mg Enoxaparin Sodium (Lovenox) 40 mg SC DAILY [facility] PRN Reason: Protocol Fentanyl (Fentanyl) 50 mcg IVP Q2H PRN PRN Reason: Pain, severe (8-10) Hydralazine HCl (Apresoline) 10 mg IVP Q6 PRN PRN Reason: for SBP>170 & or Diastolic>100 Hydrocortisone Sodium Succinate (Solu-Cortef) 100 mg IVP Q12H [facility] Last Admin: 01/15/17 09:56 Dose: 100 mg Daptomycin 510 mg/ Sodium (Chloride) 100 mls @ 100 mls/hr IV Q24H [facility] Stop: 01/17/17 10:01 Last Admin: 01/15/17 10:23 Dose: 100 mls/hr Meropenem 1g/NS 100mL IVPB (Meropenem 1g/Ns 100ml Ivpb) 1 gm in 100 mls @ 100 mls/hr IVPB Q12 [facility] PRN Reason: Protocol Stop: 01/20/17 10:16 Last Admin: 01/15/17 09:54 Dose: 100 mls/hr Propofol (Diprivan) 1,000 mg in 100 mls @ 2.545 mls/hr IV .Q24H PRN; Protocol; 5 MCG/KG/MIN PRN Reason: TITRATE PER MD ORDER Last Titration: 01/15/17 10:49 Dose: 30 mcg/kg/min, 15.268 mls/hr Isosorbide Mononitrate (Imdur) 60 mg PO DAILY [facility] Last Admin: 01/15/17 09:53 Dose: 60 mg Labetalol HCl (Trandate) 10 mg IV Q3H PRN PRN Reason: Systolic Blood Pressure Levalbuterol HCl (Xopenex) 0.63 mg IH [id number] [facility] Last Admin: 01/15/17 13:33 Dose: 0.63 mg Levalbuterol HCl (Xopenex) 0.63 mg IH Q2 PRN PRN Reason: Shortness of Breath Last Admin: 01/14/17 11:25 Dose: 0.63 mg Lorazepam (Ativan) 0.5 mg PO HS PRN; Protocol PRN Reason: anxiety/insomnia Last Admin: 01/11/17 21:16 Dose: 0.5 mg Metoprolol Tartrate (Lopressor) 25 mg PO BID [facility] Last Admin: 01/15/17 09:53 Dose: 25 mg Pantoprazole Sodium (Protonix Inj) 40 mg IVP DAILY [facility] Last Admin: 01/15/17 09:55 Dose: 40 mg Tamsulosin HCl (Flomax) 0.4 mg PO DAILY [facility] Last Admin: 01/15/17 09:54 Dose: 0.4 mg - Labs Labs: 01/15/17 06:15 01/15/17 06:15 PT 13.7 Seconds (9.9-11.8) H 01/12/17 04:00 INR 1.27 (0.93-1.08) H 01/12/17 04:00 APTT 32.7 Seconds (23.7-30.8) H 01/12/17 04:00 - Constitutional Appears: No Acute Distress - Head Exam Head Exam: ATRAUMATIC - Eye Exam Eye Exam: PERRL - ENT Exam ENT Exam: Mucous Membranes Moist - Respiratory Exam Respiratory Exam: Clear to Ausculation Bilateral, Rhonchi. absent: Wheezes - Cardiovascular Exam Cardiovascular Exam: REGULAR RHYTHM, RRR, +S1, +S2 - GI/Abdominal Exam GI & Abdominal Exam: Soft. absent: Distended, Tenderness - Extremities Exam Extremities Exam: Pedal Edema (1+). absent: Calf Tenderness - Skin Skin Exam: Dry, Intact, Normal Color, Warm Assessment and Plan - Assessment and Plan (Free Text) Assessment: 86 M with pmh of hemolytic anemia, CAD, COPD, CABG, hx of diverticulitis, gastritis, GERD, BPPH, Asbestosis, presents to the ED with cough and L sided back pain. Pt found to have T12 compression fracture. Pt has Félix positive, hemolytic anemia on prednisone now with a leukocytosis of 66.2 Leukocytosis: leukomoid rxn vs sepsis vs infection. Pt had a cardiac arrest, epinephrine x 2, and vfib with shock x 1 and ROSC was achieved. Pt is currently intubate and sedated. - Sedated with propofol - Wean vent as tolerated - Palliative consult appreciated - F/u with family regarding their wishes of trach and peg - Cardio -NSTEMI vs post cpr elevation of troponin, Cont Amio, aspirin, plavix, and cardizem 60mg QID and started on metoprolol, Cardiac cath once pt more stable - wbc inc 86.4 - likely leukomooid reaction - flow cytometry of the blood was negative - peripheral smear showed leukomoid reaction - Ordered Jak2 mutation, BCR/abl, Will f/u - Solucortef 100mg BID - Neuro recs appreciated - MRI Brain - No acute intracranial finding, R mastoiditis - MRA- unremarkable - MRA neck - no stenosis - F/u ID recs - cont Dapto and Cristin - MRI of the thoracic spine - recent compression fracture of T12 with marrow edema anteriorly - CT abdomen showed new compression deformity of T12 and small epidural hemorrhage at this level. rec MRI - CXR- b/l calcified pleural plaques - Daily labs Case and plan was reviewed and discussed in detail with Dr Walton
--- NOTE | 2017-01-15 15:14 | CP.PCM.PN ---
Subjective - Date & Time of Evaluation Date of Evaluation: 01/15/17 Time of Evaluation: 09:30 - Subjective Subjective: Continues to be on the ventilator, still sedated, no fevers overnight. Objective - Vital Signs/Intake and Output Vital Signs (last 24 hours): Temp Pulse Resp BP Pulse Ox 99 F 97 H 77 H 119/52 L 98 01/15/17 04:00 01/15/17 06:00 01/14/17 14:55 01/15/17 06:00 01/15/17 06:00 Intake and Output: 01/15/17 01/15/17 06:59 18:59 Intake Total 1630 Output Total 700 Balance 930 - Medications Medications: Current Medications Amiodarone HCl (Cordarone) 200 mg PO BID [facility] Last Admin: 01/14/17 17:47 Dose: 200 mg Aspirin (Aspirin Chewable) 81 mg PO DAILY [facility] Last Admin: 01/14/17 09:49 Dose: 81 mg Clopidogrel Bisulfate (Plavix) 75 mg PO DAILY [facility] Last Admin: 01/14/17 09:49 Dose: 75 mg Diltiazem HCl (Cardizem) 60 mg PO QID [facility] Last Admin: 01/14/17 22:38 Dose: 60 mg Enoxaparin Sodium (Lovenox) 80 mg SC Q12H [facility] PRN Reason: Protocol Last Admin: 01/14/17 20:20 Dose: 80 mg Fentanyl (Fentanyl) 50 mcg IVP Q2H PRN PRN Reason: Pain, severe (8-10) Hydralazine HCl (Apresoline) 10 mg IVP Q6 PRN PRN Reason: for SBP>170 & or Diastolic>100 Hydrocortisone Sodium Succinate (Solu-Cortef) 100 mg IVP Q12H [facility] Last Admin: 01/14/17 22:38 Dose: 100 mg Sodium Chloride (Sodium Chloride 0.9%) 1,000 mls @ 100 mls/hr IV .Q10H [facility] Last Admin: 01/14/17 22:49 Dose: 100 mls/hr Daptomycin 510 mg/ Sodium (Chloride) 100 mls @ 100 mls/hr IV Q24H [facility] Stop: 01/17/17 10:01 Last Admin: 01/14/17 10:30 Dose: 100 mls/hr Meropenem 1g/NS 100mL IVPB (Meropenem 1g/Ns 100ml Ivpb) 1 gm in 100 mls @ 100 mls/hr IVPB Q12 [facility] PRN Reason: Protocol Stop: 01/20/17 10:16 Last Admin: 01/14/17 22:39 Dose: 100 mls/hr Propofol (Diprivan) 1,000 mg in 100 mls @ 2.545 mls/hr IV .Q24H PRN; Protocol; 5 MCG/KG/MIN PRN Reason: TITRATE PER MD ORDER Last Admin: 01/15/17 06:45 Dose: 35 mcg/kg/min, 17.813 mls/hr Isosorbide Mononitrate (Imdur) 60 mg PO DAILY [facility] Last Admin: 01/14/17 09:49 Dose: 60 mg Labetalol HCl (Trandate) 10 mg IV Q3H PRN PRN Reason: Systolic Blood Pressure Levalbuterol HCl (Xopenex) 0.63 mg IH [id number] [facility] Last Admin: 01/15/17 02:25 Dose: 0.63 mg Levalbuterol HCl (Xopenex) 0.63 mg IH Q2 PRN PRN Reason: Shortness of Breath Last Admin: 01/14/17 11:25 Dose: 0.63 mg Lorazepam (Ativan) 0.5 mg PO HS PRN; Protocol PRN Reason: anxiety/insomnia Last Admin: 01/11/17 21:16 Dose: 0.5 mg Metoprolol Tartrate (Lopressor) 25 mg PO BID [facility] Last Admin: 01/14/17 18:30 Dose: Not Given Pantoprazole Sodium (Protonix Inj) 40 mg IVP DAILY [facility] Last Admin: 01/14/17 09:51 Dose: 40 mg Tamsulosin HCl (Flomax) 0.4 mg PO DAILY [facility] Last Admin: 01/14/17 09:49 Dose: 0.4 mg - Labs Labs: 01/14/17 05:45 01/14/17 05:45 PT 13.7 Seconds (9.9-11.8) H 01/12/17 04:00 INR 1.27 (0.93-1.08) H 01/12/17 04:00 APTT 32.7 Seconds (23.7-30.8) H 01/12/17 04:00 - Constitutional Appears: Other (Intubated and sedated) - ENT Exam Additional comments: ET tube in place - Neck Exam Neck Exam: absent: Lymphadenopathy, Meningismus - Respiratory Exam Respiratory Exam: Decreased Breath Sounds - Cardiovascular Exam Cardiovascular Exam: +S1, +S2 - GI/Abdominal Exam GI & Abdominal Exam: Soft. absent: Tenderness Assessment and Plan - Assessment and Plan (Free Text) Plan: Assessment S/P cardiac arrest, etiology to be determined, but should consider myocardial infarction or cardiac arrhythmia; currently with ventilator-dependent respiratory failure Coagulase negative staph in blood cx, R/O port-related bacteremia right sided mastoiditis noted on the MRI of the head T12 compression fracture CAD S/P CABG COPD history of asbestosis history of Coomb's positive hemolytic anemia history of diverticulitis gastritis GERD benign prostatic hyperplasia Plan continue Daptomycin day 7 (of 10-14 days); repeat blood cx are negative; follow up 2D echo to rule out vegetations - echocardiogram does not show vegetations continue Merrem (day 3) for the mastoiditis Follow up ICU work up and further plans will continue to monitor clinically Overall prognosis is poor
--- NOTE | 2017-01-15 15:17 | CP.PCM.PN ---
Subjective - Date & Time of Evaluation Date of Evaluation: 01/15/17 Time of Evaluation: 14:00 - Subjective Subjective: Intubated, sedated. No acute changes Objective - Vital Signs/Intake and Output Vital Signs (last 24 hours): Temp Pulse Resp BP Pulse Ox 99 F 96 H 28 H 117/52 L 99 01/15/17 04:00 01/15/17 14:45 01/15/17 07:35 01/15/17 14:45 01/15/17 07:35 Intake and Output: 01/15/17 01/15/17 06:59 18:59 Intake Total 1630 100 Output Total 700 Balance 930 100 - Medications Medications: Current Medications Amiodarone HCl (Cordarone) 200 mg PO BID [facility] Last Admin: 01/15/17 09:54 Dose: 200 mg Aspirin (Aspirin Chewable) 81 mg PO DAILY [facility] Last Admin: 01/15/17 09:53 Dose: 81 mg Clopidogrel Bisulfate (Plavix) 75 mg PO DAILY [facility] Last Admin: 01/15/17 09:53 Dose: 75 mg Diltiazem HCl (Cardizem) 60 mg PO QID [facility] Last Admin: 01/15/17 14:45 Dose: 60 mg Enoxaparin Sodium (Lovenox) 40 mg SC DAILY [facility] PRN Reason: Protocol Fentanyl (Fentanyl) 50 mcg IVP Q2H PRN PRN Reason: Pain, severe (8-10) Hydralazine HCl (Apresoline) 10 mg IVP Q6 PRN PRN Reason: for SBP>170 & or Diastolic>100 Hydrocortisone Sodium Succinate (Solu-Cortef) 100 mg IVP Q12H [facility] Last Admin: 01/15/17 09:56 Dose: 100 mg Daptomycin 510 mg/ Sodium (Chloride) 100 mls @ 100 mls/hr IV Q24H [facility] Stop: 01/17/17 10:01 Last Admin: 01/15/17 10:23 Dose: 100 mls/hr Meropenem 1g/NS 100mL IVPB (Meropenem 1g/Ns 100ml Ivpb) 1 gm in 100 mls @ 100 mls/hr IVPB Q12 [facility] PRN Reason: Protocol Stop: 01/20/17 10:16 Last Admin: 01/15/17 09:54 Dose: 100 mls/hr Propofol (Diprivan) 1,000 mg in 100 mls @ 2.545 mls/hr IV .Q24H PRN; Protocol; 5 MCG/KG/MIN PRN Reason: TITRATE PER MD ORDER Last Titration: 01/15/17 10:49 Dose: 30 mcg/kg/min, 15.268 mls/hr Insulin Human Regular (Humulin R Low) 0 units SC ACHS [facility]ESSI PRN Reason: Protocol Isosorbide Mononitrate (Imdur) 60 mg PO DAILY [facility] Last Admin: 01/15/17 09:53 Dose: 60 mg Labetalol HCl (Trandate) 10 mg IV Q3H PRN PRN Reason: Systolic Blood Pressure Levalbuterol HCl (Xopenex) 0.63 mg IH [id number] [facility] Last Admin: 01/15/17 13:33 Dose: 0.63 mg Levalbuterol HCl (Xopenex) 0.63 mg IH Q2 PRN PRN Reason: Shortness of Breath Last Admin: 01/14/17 11:25 Dose: 0.63 mg Lorazepam (Ativan) 0.5 mg PO HS PRN; Protocol PRN Reason: anxiety/insomnia Last Admin: 01/11/17 21:16 Dose: 0.5 mg Metoprolol Tartrate (Lopressor) 25 mg PO BID [facility] Last Admin: 01/15/17 09:53 Dose: 25 mg Pantoprazole Sodium (Protonix Inj) 40 mg IVP DAILY [facility] Last Admin: 01/15/17 09:55 Dose: 40 mg Tamsulosin HCl (Flomax) 0.4 mg PO DAILY [facility] Last Admin: 01/15/17 09:54 Dose: 0.4 mg - Labs Labs: 01/15/17 06:15 01/15/17 06:15 PT 13.7 Seconds (9.9-11.8) H 01/12/17 04:00 INR 1.27 (0.93-1.08) H 01/12/17 04:00 APTT 32.7 Seconds (23.7-30.8) H 01/12/17 04:00 Assessment and Plan - Assessment and Plan (Free Text) Assessment: 86 year old male with history of anemia,leukocytosis,dementia COPD, CAD, CABG, T12 compression fracture who suffered a cardiac arrest. He is intubated. He is able move toes and follow simple command when not sedated. Nicole Cox and I met with patient's Kaila and his daughter Kedar. The patients daughter produced a copy of the patient's Advanced Directive. Kedar is listed as health care proxy. In the document the patient indicated he did not want heroic measures or life prolonging interventions if his condition was irreversible or terminal. I explained that patient has been receiving life saving measures. I asked if family would consider making patient a DNR at this time. The daughter is reluctant to do so, stating that the family needs more time. Family is having a hard time accepting that patient suffered a cardiopulmonary arrest while hospitalized. Family is hopeful that patient will rebound from current medical crisis. I explained that due to patients multiple comorbidities, realistically this may not happen. Psychosocial support given. Time spent in goals of care/advance care planning discussion 40 minutes Plan: Will work with family to establish goals of care which are outlined in patient' s Advanced Directive
[2017-01-15] MEDS ORDERED: Insulin Reg-LOW-Coverage SC SCH (16:30)
[2017-01-15] MEDS: Insulin Reg-LOW-Coverage SC SCH ×2 (16:41→23:35)
[2017-01-15 17:50] LABS: ABG MECHANICAL RATE 14; ARTERIAL BLOOD GAS PH 7.47 (7.35-7.45); ATERIAL BLOOD GAS PEEP 10
[2017-01-16] MEDS: Levalbuterol 0.63 MG/3 ML Inhal Soln UD IH SCH ×4 (03:01→20:04)
[2017-01-16] MEDS ORDERED: Propofol 10 mg/ml 500 MG/50 ML VIAL IV PRN (04:13)
[2017-01-16] MEDS: Propofol 10 mg/ml 1,000 MG/100 ML VIAL IV PRN ×2 (04:17→09:02)
[2017-01-16] MEDS: Insulin Reg-LOW-Coverage SC SCH ×4 (04:23→21:30)
[2017-01-16 06:32] LABS: HEMATOCRIT 27.3 % (42.0-52.0); MEAN CELL VOLUME 95.5 fl (80.0-105.0); MEAN CORPUSCULAR HEMOGLOBIN 32.2 pg (25.0-35.0); MEAN CORPUSCULAR HGB CONC 33.7 g/dl (31.0-37.0); MEAN PLATELET VOLUME 11.4 fl (7.0-11.0); PLATELET COUNT 273 10^3/uL (120.0-450.0); RED CELL DISTRIBUTION WIDTH 16.3 % (11.5-14.5)
[2017-01-16 07:02] LABS: ADD MANUAL DIFF? YES; WHITE BLOOD COUNT 74.3 10^3/ul (4.5-11.0)
--- NOTE | 2017-01-16 07:53 | RAD ---
HISTORY: Intub COMPARISON: 01/15/2017 FINDINGS: LUNGS: No pulmonary infiltrate. PLEURA: Calcified pleural plaque bilaterally. No evidence of pleural effusion or pneumothorax. CARDIOVASCULAR: ET tube 2.8 cm above tracheal melina. Nasogastric tube extends to left upper quadrant of abdomen. Right central venous infusion port. OSSEOUS STRUCTURES: No significant abnormalities. VISUALIZED UPPER ABDOMEN: Normal. OTHER FINDINGS: None. IMPRESSION: ET tube appropriately positioned. No acute infiltrate.
[2017-01-16 07:54] LABS: ABG MECHANICAL RATE 14; ARTERIAL BLOOD GAS HCO3 24.5 mmol/L (21-28); ARTERIAL BLOOD GAS PH 7.44 (7.35-7.45); ATERIAL BLOOD GAS PEEP 10
[2017-01-16 08:05] LABS: ALB/GLOB RATIO 0.8 (1.1-1.8); ALKALINE PHOSPHATASE 106 U/L (38-133); ALT/SGPT 60 U/L (7-56); AST/SGOT 57 U/L (15-59); BILIRUBIN,TOTAL 0.8 mg/dL (0.2-1.3); BLOOD UREA NITROGEN 49 mg/dL (7-21); CALCIUM 7.5 mg/dL (8.4-10.5); CARBON DIOXIDE 24 mmol/L (21-33); CHLORIDE 114 mmol/L (98-107); GFR AFRICAN-AMERICAN > 60; GLUCOSE,RANDOM 135 mg/dL (70-110); POTASSIUM 3.6 mmol/L (3.6-5.0); SODIUM 147 mmol/L (132-148); TOTAL PROTEIN 5.6 g/dL (5.8-8.3)
[2017-01-16 08:08] LABS: ATYPICAL LYMPHOCYTE 2 % (0.0-0.0); BAND 2 % (0-2); METAMYELOCYTE 3 %; MYELOCYTE 3 %
[2017-01-16 08:09] LABS: ANISOCYTOSIS 1+; HYPOCHROMIA 1+; NEUTROPHIL 77 % (50.0-70.0); PLATELET ESTIMATE NORMAL (NORMAL); POLYCHROMASIA SLIGHT
[2017-01-16 08:10] LABS: OVALOCYTES SLIGHT
[2017-01-16] MEDS: Enoxaparin 40 mg Syringe SC SCH (09:00)
[2017-01-16] MEDS: Meropenem 1g/NS 100mL IVPB 1 GM/100 ML PIGGYBACK IVPB SCH ×2 (09:01→21:28)
--- NOTE | 2017-01-16 09:30 | CP.PCM.PN ---
Subjective - Date & Time of Evaluation Date of Evaluation: 01/16/17 Time of Evaluation: 09:00 - Subjective Subjective: Patient continues to be on the ventilator, sedated. No fevers overnight. Objective - Vital Signs/Intake and Output Vital Signs (last 24 hours): Temp Pulse Resp BP Pulse Ox 98.9 F 86 21 122/47 L 96 01/16/17 04:00 01/16/17 04:00 01/16/17 04:00 01/16/17 04:00 01/16/17 04:00 Intake and Output: 01/15/17 01/16/17 18:59 06:59 Intake Total 1027 70 Output Total 2475 Balance -1448 70 - Medications Medications: Current Medications Amiodarone HCl (Cordarone) 200 mg PO BID [facility] Last Admin: 01/15/17 17:36 Dose: 200 mg Aspirin (Aspirin Chewable) 81 mg PO DAILY [facility] Last Admin: 01/15/17 09:53 Dose: 81 mg Clopidogrel Bisulfate (Plavix) 75 mg PO DAILY [facility] Last Admin: 01/15/17 09:53 Dose: 75 mg Diltiazem HCl (Cardizem) 60 mg PO QID [facility] Last Admin: 01/15/17 21:26 Dose: 60 mg Enoxaparin Sodium (Lovenox) 40 mg SC DAILY [facility] PRN Reason: Protocol Fentanyl (Fentanyl) 50 mcg IVP Q2H PRN PRN Reason: Pain, severe (8-10) Hydralazine HCl (Apresoline) 10 mg IVP Q6 PRN PRN Reason: for SBP>170 & or Diastolic>100 Hydrocortisone Sodium Succinate (Solu-Cortef) 100 mg IVP Q12H [facility] Last Admin: 01/15/17 21:26 Dose: 100 mg Daptomycin 510 mg/ Sodium (Chloride) 100 mls @ 100 mls/hr IV Q24H [facility] Stop: 01/17/17 10:01 Last Admin: 01/15/17 10:23 Dose: 100 mls/hr Meropenem 1g/NS 100mL IVPB (Meropenem 1g/Ns 100ml Ivpb) 1 gm in 100 mls @ 100 mls/hr IVPB Q12 [facility] PRN Reason: Protocol Stop: 01/20/17 10:16 Last Admin: 01/15/17 21:27 Dose: 100 mls/hr Propofol (Diprivan) 1,000 mg in 100 mls @ 18.9 mls/hr IV .Q5H18M PRN; Protocol ; 35 MCG/KG/MIN PRN Reason: TITRATE PER MD ORDER Last Admin: 01/16/17 04:17 Dose: 35 mcg/kg/min, 18.9 mls/hr Insulin Human Regular (Humulin R Low) 0 units SC Q6H [facility] PRN Reason: Protocol Last Admin: 01/16/17 04:23 Dose: Not Given Isosorbide Mononitrate (Imdur) 60 mg PO DAILY [facility] Last Admin: 01/15/17 09:53 Dose: 60 mg Labetalol HCl (Trandate) 10 mg IV Q3H PRN PRN Reason: Systolic Blood Pressure Levalbuterol HCl (Xopenex) 0.63 mg IH [id number] [facility] Last Admin: 01/16/17 03:01 Dose: 0.63 mg Levalbuterol HCl (Xopenex) 0.63 mg IH Q2 PRN PRN Reason: Shortness of Breath Last Admin: 01/14/17 11:25 Dose: 0.63 mg Lorazepam (Ativan) 0.5 mg PO HS PRN; Protocol PRN Reason: anxiety/insomnia Last Admin: 01/11/17 21:16 Dose: 0.5 mg Metoprolol Tartrate (Lopressor) 25 mg PO BID [facility] Last Admin: 01/15/17 17:36 Dose: 25 mg Pantoprazole Sodium (Protonix Inj) 40 mg IVP DAILY [facility] Last Admin: 01/15/17 09:55 Dose: 40 mg Tamsulosin HCl (Flomax) 0.4 mg PO DAILY [facility] Last Admin: 01/15/17 09:54 Dose: 0.4 mg - Labs Labs: 01/15/17 06:15 01/15/17 06:15 PT 13.7 Seconds (9.9-11.8) H 01/12/17 04:00 INR 1.27 (0.93-1.08) H 01/12/17 04:00 APTT 32.7 Seconds (23.7-30.8) H 01/12/17 04:00 - Constitutional Appears: Other (Intubated and sedated) - Head Exam Head Exam: NORMAL INSPECTION - ENT Exam Additional comments: ET tube in place - Neck Exam Neck Exam: absent: Meningismus - Respiratory Exam Respiratory Exam: Decreased Breath Sounds - Cardiovascular Exam Cardiovascular Exam: +S1, +S2 - GI/Abdominal Exam GI & Abdominal Exam: Soft. absent: Tenderness Assessment and Plan - Assessment and Plan (Free Text) Plan: Assessment S/P cardiac arrest, etiology to be determined, but should consider myocardial infarction or cardiac arrhythmia; currently with ventilator-dependent respiratory failure Coagulase negative staph in blood cx, R/O port-related bacteremia right sided mastoiditis noted on the MRI of the head T12 compression fracture CAD S/P CABG COPD history of asbestosis history of Coomb's positive hemolytic anemia history of diverticulitis gastritis GERD benign prostatic hyperplasia Plan continue Daptomycin day 8 (of 10-14 days); repeat blood cx are negative; echocardiogram does not show vegetations continue Merrem (day 4) for the mastoiditis Follow up ICU work up and further plans will continue to monitor clinically Overall prognosis is poor
[2017-01-16] MEDS: DAPTOmycin 510 MG in Sodium Chloride 0.9% 100 ML IV SCH (10:00)
--- NOTE | 2017-01-16 11:38 | CP.PCM.PN ---
Subjective - Date & Time of Evaluation Date of Evaluation: 01/16/17 Time of Evaluation: 10:00 - Subjective Subjective: Heme/ onc note for Dr Walton: Pt seen and examined at bedside in the ICU. Pt is ventilator and sedated on propofol. ROS unobtainable. Objective - Vital Signs/Intake and Output Vital Signs (last 24 hours): Temp Pulse Resp BP Pulse Ox 98.1 F 79 22 124/48 L 97 01/16/17 07:26 01/16/17 11:00 01/16/17 11:25 01/16/17 11:00 01/16/17 11:00 Intake and Output: 01/16/17 01/16/17 06:59 18:59 Intake Total 1298 100 Output Total 550 Balance 748 100 - Medications Medications: Current Medications Amiodarone HCl (Cordarone) 200 mg PO BID [facility] Last Admin: 01/16/17 09:01 Dose: 200 mg Aspirin (Aspirin Chewable) 81 mg PO DAILY [facility] Last Admin: 01/16/17 09:01 Dose: 81 mg Clopidogrel Bisulfate (Plavix) 75 mg PO DAILY [facility] Last Admin: 01/16/17 09:01 Dose: 75 mg Diltiazem HCl (Cardizem) 60 mg PO QID [facility] Last Admin: 01/16/17 09:00 Dose: 60 mg Enoxaparin Sodium (Lovenox) 40 mg SC DAILY [facility] PRN Reason: Protocol Last Admin: 01/16/17 09:00 Dose: 40 mg Fentanyl (Fentanyl) 50 mcg IVP Q2H PRN PRN Reason: Pain, severe (8-10) Hydralazine HCl (Apresoline) 10 mg IVP Q6 PRN PRN Reason: for SBP>170 & or Diastolic>100 Hydrocortisone Sodium Succinate (Solu-Cortef) 100 mg IVP Q12H [facility] Last Admin: 01/16/17 09:32 Dose: 100 mg Daptomycin 510 mg/ Sodium (Chloride) 100 mls @ 100 mls/hr IV Q24H [facility] Stop: 01/22/17 10:01 Last Admin: 01/15/17 10:23 Dose: 100 mls/hr Meropenem 1g/NS 100mL IVPB (Meropenem 1g/Ns 100ml Ivpb) 1 gm in 100 mls @ 100 mls/hr IVPB Q12 [facility] PRN Reason: Protocol Stop: 01/20/17 10:16 Last Admin: 01/16/17 09:01 Dose: 100 mls/hr Propofol (Diprivan) 1,000 mg in 100 mls @ 18.9 mls/hr IV .Q5H18M PRN; Protocol ; 35 MCG/KG/MIN PRN Reason: TITRATE PER MD ORDER Last Admin: 01/16/17 09:02 Dose: 35 mcg/kg/min, 18.9 mls/hr Insulin Human Regular (Humulin R Low) 0 units SC Q6H [facility] PRN Reason: Protocol Last Admin: 01/16/17 04:23 Dose: Not Given Isosorbide Mononitrate (Imdur) 60 mg PO DAILY [facility] Last Admin: 01/16/17 09:01 Dose: 60 mg Labetalol HCl (Trandate) 10 mg IV Q3H PRN PRN Reason: Systolic Blood Pressure Levalbuterol HCl (Xopenex) 0.63 mg IH [id number] [facility] Last Admin: 01/16/17 08:07 Dose: 0.63 mg Levalbuterol HCl (Xopenex) 0.63 mg IH Q2 PRN PRN Reason: Shortness of Breath Last Admin: 01/14/17 11:25 Dose: 0.63 mg Lorazepam (Ativan) 0.5 mg PO HS PRN; Protocol PRN Reason: anxiety/insomnia Last Admin: 01/11/17 21:16 Dose: 0.5 mg Metoprolol Tartrate (Lopressor) 25 mg PO BID [facility] Last Admin: 01/16/17 09:01 Dose: 25 mg Pantoprazole Sodium (Protonix Inj) 40 mg IVP DAILY [facility] Last Admin: 01/15/17 09:55 Dose: 40 mg Tamsulosin HCl (Flomax) 0.4 mg PO DAILY [facility] Last Admin: 01/16/17 09:01 Dose: 0.4 mg - Labs Labs: 01/16/17 06:00 01/16/17 06:00 PT 13.7 Seconds (9.9-11.8) H 01/12/17 04:00 INR 1.27 (0.93-1.08) H 01/12/17 04:00 APTT 32.7 Seconds (23.7-30.8) H 01/12/17 04:00 - Constitutional Appears: No Acute Distress - Head Exam Head Exam: ATRAUMATIC, NORMOCEPHALIC - Eye Exam Eye Exam: PERRL - ENT Exam ENT Exam: Mucous Membranes Moist - Respiratory Exam Respiratory Exam: Clear to Ausculation Bilateral, Rhonchi. absent: Rales, Wheezes - Cardiovascular Exam Cardiovascular Exam: REGULAR RHYTHM, RRR, +S1, +S2 - GI/Abdominal Exam GI & Abdominal Exam: Soft. absent: Distended, Tenderness - Extremities Exam Extremities Exam: absent: Calf Tenderness, Pedal Edema - Skin Skin Exam: Dry, Intact, Warm Assessment and Plan - Assessment and Plan (Free Text) Assessment: 86 M with pmh of hemolytic anemia, CAD, COPD, CABG, hx of diverticulitis, gastritis, GERD, BPPH, Asbestosis, presents to the ED with cough and L sided back pain. Pt found to have T12 compression fracture. Pt has Félix positive, hemolytic anemia on prednisone now with a leukocytosis of 66.2 Leukocytosis: leukomoid rxn vs sepsis vs infection. Pt had a cardiac arrest, epinephrine x 2, and vfib with shock x 1 and ROSC was achieved. Pt is currently intubate and sedated. - Sedated with propofol 35mcg - Cont to wean vent as tolerated - Palliative consult appreciated - working with family regarding goals of care - F/u with family regarding goals of care and regarding trach and peg - Cardio -NSTEMI vs post cpr elevation of troponin, Cont Amio, aspirin, plavix, and cardizem 60mg QID and started on metoprolol, Cardiac cath once pt more stable - wbc inc 74.3 - likely leukomooid reaction - flow cytometry of the blood was negative - peripheral smear showed leukomoid reaction - Ordered Jak2 mutation, BCR/abl, Will f/u - Solucortef 100mg BID - Neuro recs appreciated - MRI Brain - No acute intracranial finding, R mastoiditis - MRA- unremarkable - MRA neck - no stenosis - F/u ID recs - cont Dapto and Cristin - MRI of the thoracic spine - recent compression fracture of T12 with marrow edema anteriorly - CT abdomen showed new compression deformity of T12 and small epidural hemorrhage at this level. rec MRI - CXR- b/l calcified pleural plaques - Daily labs Dispo: Will talk with family regarding goal of care and trach and peg Case and plan was reviewed and discussed in detail with Dr Walton
--- NOTE | 2017-01-16 13:22 | CP.PCM.PN ---
Subjective - Date & Time of Evaluation Date of Evaluation: 01/16/17 Time of Evaluation: 07:00 - Subjective Subjective: ICU Progress Note Pt seen and examined at bedside. Pt is sedated and intubated, on pressure support trial. No acute or adverse events overnight as per nursing staff. Objective - Vital Signs/Intake and Output Vital Signs (last 24 hours): Temp Pulse Resp BP Pulse Ox 98.1 F 79 22 124/48 L 97 01/16/17 07:26 01/16/17 11:00 01/16/17 11:25 01/16/17 11:00 01/16/17 11:00 Intake and Output: 01/16/17 01/16/17 06:59 18:59 Intake Total 1298 150 Output Total 550 Balance 748 150 - Medications Medications: Current Medications Amiodarone HCl (Cordarone) 200 mg PO BID [facility] Last Admin: 01/16/17 09:01 Dose: 200 mg Aspirin (Aspirin Chewable) 81 mg PO DAILY [facility] Last Admin: 01/16/17 09:01 Dose: 81 mg Clopidogrel Bisulfate (Plavix) 75 mg PO DAILY [facility] Last Admin: 01/16/17 09:01 Dose: 75 mg Diltiazem HCl (Cardizem) 60 mg PO QID [facility] Last Admin: 01/16/17 09:00 Dose: 60 mg Enoxaparin Sodium (Lovenox) 40 mg SC DAILY [facility] PRN Reason: Protocol Last Admin: 01/16/17 09:00 Dose: 40 mg Fentanyl (Fentanyl) 50 mcg IVP Q2H PRN PRN Reason: Pain, severe (8-10) Hydralazine HCl (Apresoline) 10 mg IVP Q6 PRN PRN Reason: for SBP>170 & or Diastolic>100 Hydrocortisone Sodium Succinate (Solu-Cortef) 100 mg IVP Q12H [facility] Last Admin: 01/16/17 09:32 Dose: 100 mg Daptomycin 510 mg/ Sodium (Chloride) 100 mls @ 100 mls/hr IV Q24H [facility] Stop: 01/22/17 10:01 Last Admin: 01/16/17 10:00 Dose: 100 mls/hr Meropenem 1g/NS 100mL IVPB (Meropenem 1g/Ns 100ml Ivpb) 1 gm in 100 mls @ 100 mls/hr IVPB Q12 [facility] PRN Reason: Protocol Stop: 01/20/17 10:16 Last Admin: 01/16/17 09:01 Dose: 100 mls/hr Propofol (Diprivan) 1,000 mg in 100 mls @ 18.9 mls/hr IV .Q5H18M PRN; Protocol ; 35 MCG/KG/MIN PRN Reason: TITRATE PER MD ORDER Last Titration: 01/16/17 12:20 Dose: 16.66 mcg/kg/min, 9 mls/hr Insulin Human Regular (Humulin R Low) 0 units SC Q6H [facility] PRN Reason: Protocol Last Admin: 01/16/17 09:30 Dose: Not Given Isosorbide Mononitrate (Imdur) 60 mg PO DAILY [facility] Last Admin: 01/16/17 09:01 Dose: 60 mg Labetalol HCl (Trandate) 10 mg IV Q3H PRN PRN Reason: Systolic Blood Pressure Levalbuterol HCl (Xopenex) 0.63 mg IH [id number] [facility] Last Admin: 01/16/17 13:12 Dose: 0.63 mg Levalbuterol HCl (Xopenex) 0.63 mg IH Q2 PRN PRN Reason: Shortness of Breath Last Admin: 01/14/17 11:25 Dose: 0.63 mg Lorazepam (Ativan) 0.5 mg PO HS PRN; Protocol PRN Reason: anxiety/insomnia Last Admin: 01/11/17 21:16 Dose: 0.5 mg Metoprolol Tartrate (Lopressor) 25 mg PO BID [facility] Last Admin: 01/16/17 09:01 Dose: 25 mg Pantoprazole Sodium (Protonix Inj) 40 mg IVP DAILY [facility] Last Admin: 01/16/17 12:10 Dose: 40 mg Tamsulosin HCl (Flomax) 0.4 mg PO DAILY [facility] Last Admin: 01/16/17 09:01 Dose: 0.4 mg - Labs Labs: 01/16/17 06:00 01/16/17 06:00 PT 13.7 Seconds (9.9-11.8) H 01/12/17 04:00 INR 1.27 (0.93-1.08) H 01/12/17 04:00 APTT 32.7 Seconds (23.7-30.8) H 01/12/17 04:00 - Constitutional Appears: No Acute Distress - Head Exam Head Exam: ATRAUMATIC - Eye Exam Eye Exam: EOMI, Normal appearance, PERRL Pupil Exam: NORMAL ACCOMODATION, PERRL - ENT Exam ENT Exam: Mucous Membranes Moist, Normal Exam - Respiratory Exam Respiratory Exam: Clear to Ausculation Bilateral, Rhonchi, NORMAL BREATHING PATTERN - Cardiovascular Exam Cardiovascular Exam: REGULAR RHYTHM, +S1, +S2. absent: Murmur - GI/Abdominal Exam GI & Abdominal Exam: Soft, Normal Bowel Sounds - Neurological Exam Neurological Exam: Altered - Skin Skin Exam: Dry, Intact, Normal Color, Warm Assessment and Plan - Assessment and Plan (Free Text) Assessment: 86 M admitted to the ICU for AMS and ventilatory dependent respiratory failure s /p cardiac arrest with ROSC. Palliative Care consulted for further discussions with family regarding goals of care including trach/peg. Neuro: - Intubated, sedated on propofol, will reassess mental status without sedation - Maintain normothermia - EEG showed diffuse slowing consistent with hypoxic injury. MRI brain shows cortical ribboning in the parietal region consistent with cortical ischemia. - Repeat head CT shows no acute changes - Neuro (Korya) consulted, all recs appreciated Cardio: - s/p cardiac arrest, ROSC - On amiodarone, Cardizem QID, hydralazine PRN - On ASA, plavix, imdur, metoprolol - maintain MAP > 65 - Stress dose steroids BID - Therapeutic Lovenox - Cardio consulted, all recs appreciated Pulm: - Intubated and ventilated PRVC 60%/10/14/400 - Repeat ABG shows improving metabolic acidosis with appropriately compensated respiratory alkalosis, improving hypoxia, on 60% FiO2 - Repeat CXR shows little change persistent infiltrate with likely vascular congestion. - Will continue to diurese with lasix to reduce fluid overload - Conservative O2 management, maintain SaO2 > 92% and paO2 > 60 - low tidal volumes, VAP bundle, protective lung ventilation strategy GI: - NPO - Protonix IVP for GI ppx - OGT in place for PO meds - Continue enteral feeds Renal: - Araiza in place. Urine output improved on lasix. Continue diuresing to improve fluid overloaded state and respiratory status - Strict I's & O's - monitor and replete electrolytes as needed - Maintain euvolemia Endo: - Maintain euglycemia - Accucheck Q6 with SSI - Maintain euglycemia Heme: - H/H stable - Persistent Leukocytosis, interpreted as leukemoid reaction per Hem/Onc - Hem/Onc on consult, all recs appreciated - no signs of active bleeding, continue to monitor ID: - Persistent leukocytosis, afebrile - Cont daptomycin, Merrem, per ID - ID (Tita) consulted, all recs appreciated - Maintain normothermia Ppx: Protonix for GI, Lovenox covers for DVT Patient seen, reviewed, discussed with attending
--- NOTE | 2017-01-16 14:07 | PN ---
The patient is an 86-year-old white male, he is in the [facility] in [place], Critical Care Unit 128, bed 7. SUBJECTIVE: The patient was admitted to the Critical Care Unit after having had a cardiac arrest on the medical floor. The patient was treated for agitation with Geodon 10 mg p.r.n., advised by the psychiatrist. The patient also was treated with Xanax and Seroquel for insomnia and restlessness. The patient has past history of coronary artery disease with multiple angioplasties. The patient has history of chronic lung disease which is severe of both lungs. The patient has history of benign prostatic hyperplasia with urinary retention. The patient has been treated for that with Flomax. The patient has also had treatment for high blood pressure, angina, chronic obstructive lung disease with Xopenex. The patient is in the critical care unit. He is unresponsive, sedated with Diprivan. The patient, when he awakes, he becomes very agitated. At this time, the patient is on total respiratory support and medications are given to the patient IV. PHYSICAL EXAMINATION: VITAL SIGNS: His vital signs are maintained by respirator and his blood pressure is 115/44. His oxygen saturation, the patient gets through the respirators 50% oxygen. The patient's pulse is maintained by medications at 82, temperature 98.1. CVS: S1, S2 present Lungs: clear on respirator Abd: soft Ext: no edema BL MEDICATIONS: The patient has medications for sepsis. He is on antibiotic. He gets vancomycin, meropenem 1 g, and the vancomycin is discontinued at this time. ASSESSMENT AND PLAN: The patient's overall prognosis is poor. He is being medically managed in the Critical Care Unit and at this time, the patient also has marine service operator, Dr. Almazan and Dr. Guan and his pulmonary business process consultant, Dr. Shah. The patient is also being monitored by critical power technician. David Pavon MD JAYDEN
[2017-01-16] MEDS ORDERED: Potassium Chloride 20 mEq/15 ml LIQ UD PO STA (14:42)
[2017-01-17] MEDS: Propofol 10 mg/ml 1,000 MG/100 ML VIAL IV PRN ×3 (01:51→16:38)
[2017-01-17] MEDS: Levalbuterol 0.63 MG/3 ML Inhal Soln UD IH SCH ×4 (01:59→19:30)
[2017-01-17] MEDS: Insulin Reg-LOW-Coverage SC SCH ×3 (04:30→17:36)
[2017-01-17 05:00] LABS: ABG MECHANICAL RATE 14; ARTERIAL BLOOD GAS HCO3 28.7 mmol/L (21-28); ARTERIAL BLOOD GAS PH 7.51 (7.35-7.45); ATERIAL BLOOD GAS PEEP 5
[2017-01-17 06:37] LABS: HEMATOCRIT 29.4 % (42.0-52.0); MEAN CELL VOLUME 96.1 fl (80.0-105.0); MEAN CORPUSCULAR HEMOGLOBIN 32.4 pg (25.0-35.0); MEAN CORPUSCULAR HGB CONC 33.7 g/dl (31.0-37.0); MEAN PLATELET VOLUME 11.3 fl (7.0-11.0); PLATELET COUNT 303 10^3/uL (120.0-450.0); RED CELL DISTRIBUTION WIDTH 16.1 % (11.5-14.5)
[2017-01-17 06:42] LABS: ADD MANUAL DIFF? YES
[2017-01-17 06:43] LABS: WHITE BLOOD COUNT 73.5 10^3/ul (4.5-11.0)
[2017-01-17 06:47] LABS: ALB/GLOB RATIO 0.8 (1.1-1.8); ALKALINE PHOSPHATASE 112 U/L (38-133); ALT/SGPT 73 U/L (7-56); AST/SGOT 84 U/L (15-59); BLOOD UREA NITROGEN 57 mg/dL (7-21); CALCIUM 7.3 mg/dL (8.4-10.5); CARBON DIOXIDE 28 mmol/L (21-33); CHLORIDE 114 mmol/L (95-110); GFR AFRICAN-AMERICAN > 60; POTASSIUM 3.6 mmol/L (3.6-5.0); SODIUM 149 mmol/L (132-148); TOTAL PROTEIN 5.8 g/dL (5.8-8.3)
[2017-01-17 07:00] LABS: BILIRUBIN,TOTAL 0.8 mg/dL (0.2-1.3); GLUCOSE,RANDOM 136 mg/dL (70-110)
[2017-01-17 07:11] LABS: ATYPICAL LYMPHOCYTE 3 % (0.0-0.0); BAND 3 % (0-2); NEUTROPHIL 65 % (50.0-70.0)
[2017-01-17 07:12] LABS: METAMYELOCYTE 7 %; MYELOCYTE 9 %
[2017-01-17 07:13] LABS: ANISOCYTOSIS 1+; HYPOCHROMIA 2+; LARGE PLATELETS PRESENT; OVALOCYTES SLIGHT; PLATELET ESTIMATE NORMAL (NORMAL); POIKILOCYTOSIS SLIGHT; POLYCHROMASIA 1+
[2017-01-17 07:14] LABS: TOXIC GRANULATION 1+
--- NOTE | 2017-01-17 07:54 | PN ---
DATE: 01/16/2017 REASON FOR CONSULTATION: Follow up of coronary artery disease, status post found unresponsive CPR, status post intubated, rule out anoxic encephalopathy. SUBJECTIVE: The patient is being intubated, sedated, minimally response to verbal stimuli. OBJECTIVE: GENERAL: Minimally responsive to verbal stimuli. VITAL SIGNS: Temperature afebrile. Heart rate 94, blood pressure 164/58. HEENT: PERRLA. Extraocular muscles intact. NECK: Supple. No carotid bruit or thyromegaly. CHEST: Clear to auscultation. HEART: S1 and S2 regular. ABDOMEN: Soft. EXTREMITIES: Clubbing, cyanosis negative. LABORATORY DATA: Blood workup as follows: WBC 74.3, platelet count 273, hemoglobin 9.8, hematocrit 27.3. Chemistry shows sodium 147, potassium 3.6, chloride 114, carbon dioxide 24, anion gap of 13, BUN 49, creatinine 1.3. IMPRESSION: Status post respiratory failure, status post unresponsive, found *------* CPR, vent dependent, rule out anoxic encephalopathy, history of coronary artery disease, history of coronary artery bypass grafting 20 years ago, history of multiple PTCA *------* RCA. RECOMMENDATION: Continue vent management, try to wean off the vent. If the patient cannot be weanable, then consider PEG and tracheostomy. Overall, the patient's condition is critical. Prognosis extremely guarded. Continue Cardizem through the NG tube. Continue aspirin. Continue amiodarone. We will change to 200 mg daily. Continue *------* DVT prophylaxis. Continue metoprolol 200 mg daily. Thank you, Dr. Brooks for providing me opportunity in taking care of the patient. We will change the amiodarone 200 mg daily from tomorrow. Supplement potassium. Francisca Almazan MD cc: Dr. Brooks
--- NOTE | 2017-01-17 08:15 | RAD ---
HISTORY: fu COMPARISON: Comparison is made to previous study dated 01/16/2017 FINDINGS: LUNGS: Re- demonstration of patchy opacities in the lungs. The ET tube is again seen at appropriate position with the tip is approximately 3 centimeter above the melina. PLEURA: Blunting of the left costophrenic angle is noted. CARDIOVASCULAR: The cardiac silhouette is enlarged. OSSEOUS STRUCTURES: No significant abnormalities. VISUALIZED UPPER ABDOMEN: NG tube seen extending to the abdomen. OTHER FINDINGS: Right jugular central line seen in place. IMPRESSION: No significant interval change in the lungs since the previous exam. Blunting of the left costophrenic angle which could be due to small pleural effusion. Appropriate position of the support devices.
[2017-01-17] MEDS ORDERED: Potassium Chloride 20 mEq/15 ml LIQ UD PO STA (08:58)
[2017-01-17] MEDS: Enoxaparin 40 mg Syringe SC SCH (09:16)
[2017-01-17] MEDS: Meropenem 1g/NS 100mL IVPB 1 GM/100 ML PIGGYBACK IVPB SCH ×2 (09:18→22:27)
[2017-01-17] MEDS: DAPTOmycin 510 MG in Sodium Chloride 0.9% 100 ML IV SCH (10:30)
--- NOTE | 2017-01-17 11:14 | CP.PCM.PN ---
Subjective - Date & Time of Evaluation Date of Evaluation: 01/17/17 Time of Evaluation: 09:00 - Subjective Subjective: Continues to be on the ventilator, not in distress, awake but somewhat confused , off sedation. No fevers overnight. Objective - Vital Signs/Intake and Output Vital Signs (last 24 hours): Temp Pulse Resp BP Pulse Ox 99.1 F 90 21 149/60 99 01/17/17 04:00 01/17/17 06:07 01/16/17 17:04 01/17/17 06:07 01/17/17 06:07 Intake and Output: 01/16/17 01/17/17 18:59 06:59 Intake Total 422 660 Output Total 1950 780 Balance -1528 -120 - Medications Medications: Current Medications Amiodarone HCl (Cordarone) 200 mg PO DAILY [facility] Aspirin (Aspirin Chewable) 81 mg PO DAILY [facility] Last Admin: 01/16/17 09:01 Dose: 81 mg Clopidogrel Bisulfate (Plavix) 75 mg PO DAILY [facility] Last Admin: 01/16/17 09:01 Dose: 75 mg Diltiazem HCl (Cardizem) 60 mg PO QID [facility] Last Admin: 01/16/17 21:29 Dose: 60 mg Enoxaparin Sodium (Lovenox) 40 mg SC DAILY [facility] PRN Reason: Protocol Last Admin: 01/16/17 09:00 Dose: 40 mg Fentanyl (Fentanyl) 50 mcg IVP Q2H PRN PRN Reason: Pain, severe (8-10) Hydralazine HCl (Apresoline) 10 mg IVP Q6 PRN PRN Reason: for SBP>170 & or Diastolic>100 Hydrocortisone Sodium Succinate (Solu-Cortef) 100 mg IVP Q12H [facility] Last Admin: 01/16/17 21:29 Dose: 100 mg Daptomycin 510 mg/ Sodium (Chloride) 100 mls @ 100 mls/hr IV Q24H [facility] Stop: 01/22/17 10:01 Last Admin: 01/16/17 10:00 Dose: 100 mls/hr Meropenem 1g/NS 100mL IVPB (Meropenem 1g/Ns 100ml Ivpb) 1 gm in 100 mls @ 100 mls/hr IVPB Q12 [facility] PRN Reason: Protocol Stop: 01/20/17 10:16 Last Admin: 01/16/17 21:28 Dose: 100 mls/hr Propofol (Diprivan) 1,000 mg in 100 mls @ 18.9 mls/hr IV .Q5H18M PRN; Protocol ; 35 MCG/KG/MIN PRN Reason: TITRATE PER MD ORDER Last Titration: 01/17/17 02:00 Dose: 25 mcg/kg/min, 13.5 mls/hr Insulin Human Regular (Humulin R Low) 0 units SC Q6H [facility] PRN Reason: Protocol Last Admin: 01/17/17 04:30 Dose: Not Given Isosorbide Mononitrate (Imdur) 60 mg PO DAILY [facility] Last Admin: 01/16/17 09:01 Dose: 60 mg Labetalol HCl (Trandate) 10 mg IV Q3H PRN PRN Reason: Systolic Blood Pressure Levalbuterol HCl (Xopenex) 0.63 mg IH [id number] [facility] Last Admin: 01/17/17 01:59 Dose: 0.63 mg Levalbuterol HCl (Xopenex) 0.63 mg IH Q2 PRN PRN Reason: Shortness of Breath Last Admin: 01/14/17 11:25 Dose: 0.63 mg Lorazepam (Ativan) 0.5 mg PO HS PRN; Protocol PRN Reason: anxiety/insomnia Last Admin: 01/11/17 21:16 Dose: 0.5 mg Metoprolol Tartrate (Lopressor) 25 mg PO BID [facility] Last Admin: 01/16/17 17:18 Dose: 25 mg Pantoprazole Sodium (Protonix Inj) 40 mg IVP DAILY [facility] Last Admin: 01/16/17 12:10 Dose: 40 mg Tamsulosin HCl (Flomax) 0.4 mg PO DAILY [facility] Last Admin: 01/16/17 09:01 Dose: 0.4 mg - Labs Labs: 01/16/17 06:00 01/16/17 06:00 PT 13.7 Seconds (9.9-11.8) H 01/12/17 04:00 INR 1.27 (0.93-1.08) H 01/12/17 04:00 APTT 32.7 Seconds (23.7-30.8) H 01/12/17 04:00 - Constitutional Appears: Other (Intubated, off sedation, not in distress) - Head Exam Head Exam: NORMAL INSPECTION - ENT Exam Additional comments: Et tube in place - Neck Exam Neck Exam: absent: Meningismus - Respiratory Exam Additional comments: good air entry bilaterally - Cardiovascular Exam Cardiovascular Exam: +S1, +S2 - GI/Abdominal Exam GI & Abdominal Exam: Soft. absent: Tenderness Assessment and Plan - Assessment and Plan (Free Text) Plan: Assessment S/P cardiac arrest, etiology to be determined, but should consider myocardial infarction or cardiac arrhythmia; currently with ventilator-dependent respiratory failure Coagulase negative staph in blood cx, R/O port-related bacteremia right sided mastoiditis noted on the MRI of the head T12 compression fracture CAD S/P CABG COPD history of asbestosis history of Coomb's positive hemolytic anemia history of diverticulitis gastritis GERD benign prostatic hyperplasia Plan continue Daptomycin day 9 (of 10-14 days); repeat blood cx are negative; echocardiogram does not show vegetations continue Merrem (day 5, of 7-10 days) for the mastoiditis Follow up ICU work up and further plans will continue to monitor clinically Overall prognosis is poor
--- NOTE | 2017-01-17 12:51 | CP.PCM.PN ---
<MAXWELL MUÑOZ - Last Filed: 01/17/17 12:45> Subjective - Date & Time of Evaluation Date of Evaluation: 01/17/17 Time of Evaluation: 07:30 - Subjective Subjective: Maxwell Muñoz DO PGY1 - ICU Progress Note Patient seen and examined at bedside. No acute events reported overnight. Patient remains intubated, sedation held, tube feeding stopped for sedation vacation and extubation trial. Off sedation, patient is awake and responsive, moving spontaneously, but barely following simple commands. Objective - Vital Signs/Intake and Output Vital Signs (last 24 hours): Temp Pulse Resp BP Pulse Ox 99.4 F 97 H 21 106/53 L 94 L 01/17/17 08:00 01/17/17 12:00 01/16/17 17:04 01/17/17 12:00 01/17/17 12:00 Intake and Output: 01/17/17 01/17/17 06:59 18:59 Intake Total 660 100 Output Total 780 Balance -120 100 - Medications Medications: Current Medications Amiodarone HCl (Cordarone) 200 mg PO DAILY [facility] Last Admin: 01/17/17 09:18 Dose: 200 mg Aspirin (Aspirin Chewable) 81 mg PO DAILY [facility] Last Admin: 01/17/17 09:18 Dose: 81 mg Clopidogrel Bisulfate (Plavix) 75 mg PO DAILY [facility] Last Admin: 01/17/17 09:17 Dose: 75 mg Diltiazem HCl (Cardizem) 60 mg PO QID [facility] Last Admin: 01/17/17 09:17 Dose: 60 mg Enoxaparin Sodium (Lovenox) 40 mg SC DAILY [facility] PRN Reason: Protocol Last Admin: 01/17/17 09:16 Dose: 40 mg Fentanyl (Fentanyl) 50 mcg IVP Q2H PRN PRN Reason: Pain, severe (8-10) Hydralazine HCl (Apresoline) 10 mg IVP Q6 PRN PRN Reason: for SBP>170 & or Diastolic>100 Hydrocortisone Sodium Succinate (Solu-Cortef) 100 mg IVP Q12H [facility] Last Admin: 01/16/17 21:29 Dose: 100 mg Daptomycin 510 mg/ Sodium (Chloride) 100 mls @ 100 mls/hr IV Q24H [facility] Stop: 01/22/17 10:01 Last Admin: 01/16/17 10:00 Dose: 100 mls/hr Meropenem 1g/NS 100mL IVPB (Meropenem 1g/Ns 100ml Ivpb) 1 gm in 100 mls @ 100 mls/hr IVPB Q12 [facility] PRN Reason: Protocol Stop: 01/20/17 10:16 Last Admin: 01/17/17 09:18 Dose: 100 mls/hr Propofol (Diprivan) 1,000 mg in 100 mls @ 18.9 mls/hr IV .Q5H18M PRN; Protocol ; 35 MCG/KG/MIN PRN Reason: TITRATE PER MD ORDER Last Admin: 01/17/17 10:59 Dose: 30 mcg/kg/min, 16.2 mls/hr Insulin Human Regular (Humulin R Low) 0 units SC Q6H [facility] PRN Reason: Protocol Last Admin: 01/17/17 04:30 Dose: Not Given Isosorbide Mononitrate (Imdur) 60 mg PO DAILY [facility] Last Admin: 01/17/17 09:17 Dose: 60 mg Labetalol HCl (Trandate) 10 mg IV Q3H PRN PRN Reason: Systolic Blood Pressure Levalbuterol HCl (Xopenex) 0.63 mg IH [id number] [facility] Last Admin: 01/17/17 07:23 Dose: 0.63 mg Levalbuterol HCl (Xopenex) 0.63 mg IH Q2 PRN PRN Reason: Shortness of Breath Last Admin: 01/14/17 11:25 Dose: 0.63 mg Lorazepam (Ativan) 0.5 mg PO HS PRN; Protocol PRN Reason: anxiety/insomnia Last Admin: 01/11/17 21:16 Dose: 0.5 mg Metoprolol Tartrate (Lopressor) 25 mg PO BID [facility] Last Admin: 01/17/17 09:17 Dose: 25 mg Pantoprazole Sodium (Protonix Inj) 40 mg IVP DAILY [facility] Last Admin: 01/17/17 09:14 Dose: 40 mg Tamsulosin HCl (Flomax) 0.4 mg PO DAILY [facility] Last Admin: 01/17/17 09:17 Dose: 0.4 mg - Labs Labs: 01/17/17 06:10 01/17/17 06:10 PT 13.7 Seconds (9.9-11.8) H 01/12/17 04:00 INR 1.27 (0.93-1.08) H 01/12/17 04:00 APTT 32.7 Seconds (23.7-30.8) H 01/12/17 04:00 - Constitutional Appears: Non-toxic, No Acute Distress, Confused, Chronically Ill - Head Exam Head Exam: ATRAUMATIC, NORMOCEPHALIC - Eye Exam Eye Exam: PERRL - ENT Exam ENT Exam: Mucous Membranes Moist Additional comments: Not tolerating secretions well, poor swallow function - Respiratory Exam Respiratory Exam: Rhonchi (mild, diffuse). absent: Rales, Wheezes Additional comments: weak respiratory effort off sedation and on pressure support - Cardiovascular Exam Cardiovascular Exam: RRR, +S1, +S2 - GI/Abdominal Exam GI & Abdominal Exam: Soft. absent: Firm, Guarding, Rigid, Tenderness - Extremities Exam Extremities Exam: absent: Calf Tenderness, Pedal Edema - Neurological Exam Neurological Exam: Alert, Awake Additional comments: off sedation, not obeying simple commands - Skin Skin Exam: Dry, Intact Assessment and Plan - Assessment and Plan (Free Text) Assessment: 86 M admitted to the ICU for AMS and ventilatory dependent respiratory failure s /p cardiac arrest with ROSC. Palliative Care consulted for further discussions with family regarding goals of care including trach/peg. May require ethics committee meeting to discuss patient's advance directive vs wishes of family and POA. Plan: Neuro: - Mental status improved slightly off sedation, but continues to have weak respiratory effort, and difficulty following simple commands. Will remain intubated and sedated for comfort and compliance for the time being - Maintain normothermia - EEG showed diffuse slowing consistent with hypoxic injury. MRI brain shows cortical ribboning in the parietal region consistent with cortical ischemia. - Repeat head CT showed no acute changes - Neuro (Korya) consulted, all recs appreciated Cardio: - s/p cardiac arrest, ROSC - On amiodarone, Cardizem QID, hydralazine PRN - On ASA, plavix, imdur, metoprolol - maintain MAP > 65 - Stress dose steroids BID - Therapeutic Lovenox - Cardio consulted, all recs appreciated Pulm: - Intubated and ventilated PRVC 50%/5/14/400 - Repeat ABG shows metabolic alkalosis, likely contraction alkalosis 2/2 diuresis improving hypoxia, on 50% FiO2 - Repeat CXR shows some moderate improvement in vascular congestion and various opacities - Stop diuretics - Conservative O2 management, maintain SaO2 > 92% and paO2 > 60 - low tidal volumes, VAP bundle, protective lung ventilation strategy GI: - NPO - Protonix IVP for GI ppx - OGT in place for PO meds - Continue enteral feeds Renal: - Araiza in place. Good urine output. Stop diuretics due to contraction alkalosis - Strict I's & O's - monitor and replete electrolytes as needed - Maintain euvolemia Endo: - Maintain euglycemia - Accucheck Q6 with SSI - Maintain euglycemia Heme: - H/H stable - Persistent Leukocytosis, interpreted as leukemoid reaction per Hem/Onc - Hem/Onc on consult, all recs appreciated - no signs of active bleeding, continue to monitor ID: - Persistent leukocytosis, afebrile - Cont daptomycin, Merrem, per ID - ID (Tita) consulted, all recs appreciated - Maintain normothermia Ppx: Protonix for GI, Lovenox covers for DVT Patient seen, reviewed, discussed with attending <Elijah Le - Last Filed: 01/17/17 14:40> Objective - Vital Signs/Intake and Output Vital Signs (last 24 hours): Temp Pulse Resp BP Pulse Ox 99.4 F 97 H 21 106/53 L 94 L 01/17/17 08:00 01/17/17 12:00 01/16/17 17:04 01/17/17 12:00 01/17/17 12:00 Intake and Output: 01/17/17 01/17/17 06:59 18:59 Intake Total 660 100 Output Total 780 Balance -120 100 - Medications Medications: Current Medications Amiodarone HCl (Cordarone) 200 mg PO DAILY [facility] Last Admin: 01/17/17 09:18 Dose: 200 mg Aspirin (Aspirin Chewable) 81 mg PO DAILY [facility] Last Admin: 01/17/17 09:18 Dose: 81 mg Clopidogrel Bisulfate (Plavix) 75 mg PO DAILY [facility] Last Admin: 01/17/17 09:17 Dose: 75 mg Diltiazem HCl (Cardizem) 60 mg PO QID [facility] Last Admin: 01/17/17 09:17 Dose: 60 mg Enoxaparin Sodium (Lovenox) 40 mg SC DAILY [facility] PRN Reason: Protocol Last Admin: 01/17/17 09:16 Dose: 40 mg Fentanyl (Fentanyl) 50 mcg IVP Q2H PRN PRN Reason: Pain, severe (8-10) Hydralazine HCl (Apresoline) 10 mg IVP Q6 PRN PRN Reason: for SBP>170 & or Diastolic>100 Hydrocortisone Sodium Succinate (Solu-Cortef) 100 mg IVP Q12H [facility] Last Admin: 01/16/17 21:29 Dose: 100 mg Daptomycin 510 mg/ Sodium (Chloride) 100 mls @ 100 mls/hr IV Q24H [facility] Stop: 01/22/17 10:01 Last Admin: 01/17/17 10:30 Dose: 100 mls/hr Meropenem 1g/NS 100mL IVPB (Meropenem 1g/Ns 100ml Ivpb) 1 gm in 100 mls @ 100 mls/hr IVPB Q12 [facility] PRN Reason: Protocol Stop: 01/20/17 10:16 Last Admin: 01/17/17 09:18 Dose: 100 mls/hr Propofol (Diprivan) 1,000 mg in 100 mls @ 18.9 mls/hr IV .Q5H18M PRN; Protocol ; 35 MCG/KG/MIN PRN Reason: TITRATE PER MD ORDER Last Admin: 01/17/17 10:59 Dose: 30 mcg/kg/min, 16.2 mls/hr Insulin Human Regular (Humulin R Low) 0 units SC Q6H [facility] PRN Reason: Protocol Last Admin: 01/17/17 04:30 Dose: Not Given Isosorbide Mononitrate (Imdur) 60 mg PO DAILY [facility] Last Admin: 01/17/17 09:17 Dose: 60 mg Labetalol HCl (Trandate) 10 mg IV Q3H PRN PRN Reason: Systolic Blood Pressure Levalbuterol HCl (Xopenex) 0.63 mg IH [id number] [facility] Last Admin: 01/17/17 13:41 Dose: 0.63 mg Levalbuterol HCl (Xopenex) 0.63 mg IH Q2 PRN PRN Reason: Shortness of Breath Last Admin: 01/14/17 11:25 Dose: 0.63 mg Lorazepam (Ativan) 0.5 mg PO HS PRN; Protocol PRN Reason: anxiety/insomnia Last Admin: 01/11/17 21:16 Dose: 0.5 mg Metoprolol Tartrate (Lopressor) 25 mg PO BID [facility] Last Admin: 01/17/17 09:17 Dose: 25 mg Pantoprazole Sodium (Protonix Inj) 40 mg IVP DAILY [facility] Last Admin: 01/17/17 09:14 Dose: 40 mg Tamsulosin HCl (Flomax) 0.4 mg PO DAILY [facility] Last Admin: 01/17/17 09:17 Dose: 0.4 mg - Labs Labs: 01/17/17 06:10 01/17/17 06:10 PT 13.7 Seconds (9.9-11.8) H 01/12/17 04:00 INR 1.27 (0.93-1.08) H 01/12/17 04:00 APTT 32.7 Seconds (23.7-30.8) H 01/12/17 04:00 Assessment and Plan - Assessment and Plan (Free Text) Assessment: Patient seen and examined, case discussed on rounds with resident. Agree with residents note, A/P, with following addition. 86 M admitted to the ICU for AMS and ventilatory dependent respiratory failure s /p cardiac arrest. Patient remains intubated, with good oxygen exchange yet with poor mental status. Sedation shut off today, patient able to tolerate CPAP , but cannot demonstrate ability to follow simple commands. Patient responds to painful, noxious, stimuli. Patient likely would not tolerate an extubation, unable to protect airway, follow commands. Will need to meet family, and palliative care discuss further treatment from here, ?PEG/Trach. Patient has advanced directives. Cardiac Arrest, with ROSC Leukocytosis Volume overload Recommend: - Abx as per ID - DC diuretics - follow up palliative care - family meeting - lopressor - ASA, Plavix - Amio - GI ppx, DVT ppx
--- NOTE | 2017-01-17 14:31 | CP.PCM.PN ---
Subjective - Date & Time of Evaluation Date of Evaluation: 01/17/17 Time of Evaluation: 11:00 - Subjective Subjective: Sedated. Agitated when off sedation Objective - Vital Signs/Intake and Output Vital Signs (last 24 hours): Temp Pulse Resp BP Pulse Ox 99.4 F 97 H 21 106/53 L 94 L 01/17/17 08:00 01/17/17 12:00 01/16/17 17:04 01/17/17 12:00 01/17/17 12:00 Intake and Output: 01/17/17 01/17/17 06:59 18:59 Intake Total 660 100 Output Total 780 Balance -120 100 - Medications Medications: Current Medications Amiodarone HCl (Cordarone) 200 mg PO DAILY [facility] Last Admin: 01/17/17 09:18 Dose: 200 mg Aspirin (Aspirin Chewable) 81 mg PO DAILY [facility] Last Admin: 01/17/17 09:18 Dose: 81 mg Clopidogrel Bisulfate (Plavix) 75 mg PO DAILY [facility] Last Admin: 01/17/17 09:17 Dose: 75 mg Diltiazem HCl (Cardizem) 60 mg PO QID [facility] Last Admin: 01/17/17 09:17 Dose: 60 mg Enoxaparin Sodium (Lovenox) 40 mg SC DAILY [facility] PRN Reason: Protocol Last Admin: 01/17/17 09:16 Dose: 40 mg Fentanyl (Fentanyl) 50 mcg IVP Q2H PRN PRN Reason: Pain, severe (8-10) Hydralazine HCl (Apresoline) 10 mg IVP Q6 PRN PRN Reason: for SBP>170 & or Diastolic>100 Hydrocortisone Sodium Succinate (Solu-Cortef) 100 mg IVP Q12H [facility] Last Admin: 01/16/17 21:29 Dose: 100 mg Daptomycin 510 mg/ Sodium (Chloride) 100 mls @ 100 mls/hr IV Q24H [facility] Stop: 01/22/17 10:01 Last Admin: 01/17/17 10:30 Dose: 100 mls/hr Meropenem 1g/NS 100mL IVPB (Meropenem 1g/Ns 100ml Ivpb) 1 gm in 100 mls @ 100 mls/hr IVPB Q12 [facility] PRN Reason: Protocol Stop: 01/20/17 10:16 Last Admin: 01/17/17 09:18 Dose: 100 mls/hr Propofol (Diprivan) 1,000 mg in 100 mls @ 18.9 mls/hr IV .Q5H18M PRN; Protocol ; 35 MCG/KG/MIN PRN Reason: TITRATE PER MD ORDER Last Admin: 01/17/17 10:59 Dose: 30 mcg/kg/min, 16.2 mls/hr Insulin Human Regular (Humulin R Low) 0 units SC Q6H [facility] PRN Reason: Protocol Last Admin: 01/17/17 04:30 Dose: Not Given Isosorbide Mononitrate (Imdur) 60 mg PO DAILY [facility] Last Admin: 01/17/17 09:17 Dose: 60 mg Labetalol HCl (Trandate) 10 mg IV Q3H PRN PRN Reason: Systolic Blood Pressure Levalbuterol HCl (Xopenex) 0.63 mg IH [id number] [facility] Last Admin: 01/17/17 13:41 Dose: 0.63 mg Levalbuterol HCl (Xopenex) 0.63 mg IH Q2 PRN PRN Reason: Shortness of Breath Last Admin: 01/14/17 11:25 Dose: 0.63 mg Lorazepam (Ativan) 0.5 mg PO HS PRN; Protocol PRN Reason: anxiety/insomnia Last Admin: 01/11/17 21:16 Dose: 0.5 mg Metoprolol Tartrate (Lopressor) 25 mg PO BID [facility] Last Admin: 01/17/17 09:17 Dose: 25 mg Pantoprazole Sodium (Protonix Inj) 40 mg IVP DAILY [facility] Last Admin: 01/17/17 09:14 Dose: 40 mg Tamsulosin HCl (Flomax) 0.4 mg PO DAILY [facility] Last Admin: 01/17/17 09:17 Dose: 0.4 mg - Labs Labs: 01/17/17 06:10 01/17/17 06:10 PT 13.7 Seconds (9.9-11.8) H 01/12/17 04:00 INR 1.27 (0.93-1.08) H 01/12/17 04:00 APTT 32.7 Seconds (23.7-30.8) H 01/12/17 04:00 - Constitutional Appears: Chronically Ill - Eye Exam Eye Exam: Normal appearance, PERRL - ENT Exam ENT Exam: Mucous Membranes Moist - Respiratory Exam Respiratory Exam: Clear to Ausculation Bilateral - Cardiovascular Exam Cardiovascular Exam: REGULAR RHYTHM, +S1, +S2 - GI/Abdominal Exam GI & Abdominal Exam: Soft, Normal Bowel Sounds - Extremities Exam Extremities Exam: Normal Capillary Refill - Neurological Exam Neurological Exam: Altered - Skin Skin Exam: Dry, Warm Assessment and Plan - Assessment and Plan (Free Text) Assessment: 86 year old male with history of dementia who was admitted flank pain, fever, chills, T12 compression fracture. He suffered cardiopulmonary arrest, respiratory failure. He is intubated, unable wean from vent. When off sedation patient becomes agitated, unable to follow command. Lenin Carrillo and I met with family and reviewed instructions in patient Advance Directive. Benefits and burdens of tracheotomy/PEG/terminal make up operator care home care explained in detail. Health care surrogate/family does not believe that the burdens of treatment outweigh the expected benefits and want to move forward with PEG/trach. I did strongly encourage family to consider making patient a DNR so that no heroic resuscitative measures would be done to prolong life if his condition worsens. residential electrician notified of family's wishes for PEG/trach Time spent with family in goals of care discussion, 45 minutes Plan: Advance care palling Palliative support
[2017-01-17] MEDS: Acetaminophen 650mg/20.3ml solution UD PO PRN ×2 (15:42→22:28)
--- NOTE | 2017-01-17 15:42 | CP.PCM.PN ---
<Finn Bailey - Last Filed: 01/17/17 15:34> Subjective - Date & Time of Evaluation Date of Evaluation: 01/17/17 Time of Evaluation: 07:00 - Subjective Subjective: Heme/ onc note for Dr Walton: Pt seen and examined at bedside in the ICU. Pt is ventilator unable wean form vent, and sedated. When off sedation he is agitated, unable to follow command. ROS unobtainable. Objective - Vital Signs/Intake and Output Vital Signs (last 24 hours): Temp Pulse Resp BP Pulse Ox 99.4 F 97 H 21 106/53 L 94 L 01/17/17 08:00 01/17/17 12:00 01/16/17 17:04 01/17/17 12:00 01/17/17 12:00 Intake and Output: 01/17/17 01/17/17 06:59 18:59 Intake Total 660 100 Output Total 780 Balance -120 100 - Medications Medications: Current Medications Acetaminophen (Tylenol 650mg/20.3ml Solution Ud) 650 mg PO Q6H PRN PRN Reason: fever Amiodarone HCl (Cordarone) 200 mg PO DAILY [facility] Last Admin: 01/17/17 09:18 Dose: 200 mg Aspirin (Aspirin Chewable) 81 mg PO DAILY [facility] Last Admin: 01/17/17 09:18 Dose: 81 mg Clopidogrel Bisulfate (Plavix) 75 mg PO DAILY [facility] Last Admin: 01/17/17 09:17 Dose: 75 mg Diltiazem HCl (Cardizem) 60 mg PO QID [facility] Last Admin: 01/17/17 09:17 Dose: 60 mg Enoxaparin Sodium (Lovenox) 40 mg SC DAILY [facility] PRN Reason: Protocol Last Admin: 01/17/17 09:16 Dose: 40 mg Fentanyl (Fentanyl) 50 mcg IVP Q2H PRN PRN Reason: Pain, severe (8-10) Hydralazine HCl (Apresoline) 10 mg IVP Q6 PRN PRN Reason: for SBP>170 & or Diastolic>100 Hydrocortisone Sodium Succinate (Solu-Cortef) 100 mg IVP Q12H [facility] Last Admin: 01/16/17 21:29 Dose: 100 mg Daptomycin 510 mg/ Sodium (Chloride) 100 mls @ 100 mls/hr IV Q24H [facility] Stop: 01/22/17 10:01 Last Admin: 01/17/17 10:30 Dose: 100 mls/hr Meropenem 1g/NS 100mL IVPB (Meropenem 1g/Ns 100ml Ivpb) 1 gm in 100 mls @ 100 mls/hr IVPB Q12 YESSI PRN Reason: Protocol Stop: 01/20/17 10:16 Last Admin: 01/17/17 09:18 Dose: 100 mls/hr Propofol (Diprivan) 1,000 mg in 100 mls @ 18.9 mls/hr IV .Q5H18M PRN; Protocol ; 35 MCG/KG/MIN PRN Reason: TITRATE PER MD ORDER Last Admin: 01/17/17 10:59 Dose: 30 mcg/kg/min, 16.2 mls/hr Insulin Human Regular (Humulin R Low) 0 units SC Q6H YESSI PRN Reason: Protocol Last Admin: 01/17/17 10:30 Dose: Not Given Isosorbide Mononitrate (Imdur) 60 mg PO DAILY [facility] Last Admin: 01/17/17 09:17 Dose: 60 mg Labetalol HCl (Trandate) 10 mg IV Q3H PRN PRN Reason: Systolic Blood Pressure Levalbuterol HCl (Xopenex) 0.63 mg IH [id number] [facility] Last Admin: 01/17/17 13:41 Dose: 0.63 mg Levalbuterol HCl (Xopenex) 0.63 mg IH Q2 PRN PRN Reason: Shortness of Breath Last Admin: 01/14/17 11:25 Dose: 0.63 mg Lorazepam (Ativan) 0.5 mg PO HS PRN; Protocol PRN Reason: anxiety/insomnia Last Admin: 01/11/17 21:16 Dose: 0.5 mg Metoprolol Tartrate (Lopressor) 25 mg PO BID [facility] Last Admin: 01/17/17 09:17 Dose: 25 mg Pantoprazole Sodium (Protonix Inj) 40 mg IVP DAILY [facility] Last Admin: 01/17/17 09:14 Dose: 40 mg Tamsulosin HCl (Flomax) 0.4 mg PO DAILY [facility] Last Admin: 01/17/17 09:17 Dose: 0.4 mg - Labs Labs: 01/17/17 06:10 01/17/17 06:10 PT 13.7 Seconds (9.9-11.8) H 01/12/17 04:00 INR 1.27 (0.93-1.08) H 01/12/17 04:00 APTT 32.7 Seconds (23.7-30.8) H 01/12/17 04:00 - Constitutional Appears: No Acute Distress - Head Exam Head Exam: NORMAL INSPECTION - Eye Exam Eye Exam: PERRL - ENT Exam ENT Exam: Mucous Membranes Moist - Respiratory Exam Respiratory Exam: Clear to Ausculation Bilateral. absent: Rales, Wheezes - Cardiovascular Exam Cardiovascular Exam: RRR, +S1, +S2 - GI/Abdominal Exam GI & Abdominal Exam: Soft, Normal Bowel Sounds. absent: Tenderness - Extremities Exam Extremities Exam: Pedal Edema (1+). absent: Calf Tenderness - Neurological Exam Neurological Exam: Alert - Skin Skin Exam: Dry, Intact, Normal Color, Warm Assessment and Plan - Assessment and Plan (Free Text) Assessment: 86 M with pmh of hemolytic anemia, CAD, COPD, CABG, hx of diverticulitis, gastritis, GERD, BPPH, Asbestosis, presents to the ED with cough and L sided back pain. Pt found to have T12 compression fracture. Pt has Félix positive, hemolytic anemia on prednisone now with a leukocytosis of 66.2 Leukocytosis: leukomoid rxn vs sepsis vs infection. Pt had a cardiac arrest, epinephrine x 2, and vfib with shock x 1 and ROSC was achieved. Pt is currently intubate not tolerating weaning attemots. - Intubated unable wean form vent. When off sedation he is agitated, unable to follow command - Cont to wean vent as tolerated - Palliative consult - working with family regarding goals of care POA vs advance directives - F/u with family regarding goals of care and regarding trach and peg - Cardio -NSTEMI vs post cpr elevation of troponin, Cont Amio, aspirin, plavix, and cardizem 60mg QID and started on metoprolol, Cardiac cath once pt more stable - wbc inc 73.5 - likely leukomooid reaction - flow cytometry of the blood was negative - peripheral smear showed leukomoid reaction - Ordered Jak2 mutation, BCR/abl, Will f/u - Solucortef 100mg BID - Neuro recs appreciated - MRI Brain - No acute intracranial finding, R mastoiditis - MRA- unremarkable - MRA neck - no stenosis - F/u ID recs - cont Dapto and Cristin - MRI of the thoracic spine - recent compression fracture of T12 with marrow edema anteriorly - CT abdomen showed new compression deformity of T12 and small epidural hemorrhage at this level. rec MRI - CXR- b/l calcified pleural plaques - Daily labs Dispo: Talk w/ family regarding trach and peg Case and plan was reviewed and discussed in detail with Dr Walton <Rowdy Walton P - Last Filed: 01/25/17 18:48> Objective - Vital Signs/Intake and Output Vital Signs (last 24 hours): Temp Pulse Resp BP Pulse Ox 97.6 F 115 H 20 135/73 98 01/24/17 07:46 01/24/17 10:00 01/24/17 08:13 01/24/17 07:46 01/24/17 07:46 - Labs Labs: 01/24/17 07:30 01/24/17 07:30 PT 13.7 Seconds (9.9-11.8) H 01/12/17 04:00 INR 1.27 (0.93-1.08) H 01/12/17 04:00 APTT 32.7 Seconds (23.7-30.8) H 01/12/17 04:00 Attending/Attestation - Attestation I have personally seen and examined this patient.: Yes I have fully participated in the care of the patient.: Yes I have reviewed all pertinent clinical information, including history, physical exam and plan: Yes
--- NOTE | 2017-01-17 21:05 | PN ---
DATE: 01/17/2017 REASON FOR CONSULTATION: Followup coronary artery disease, status post found unresponsive, status post CPR, status post intubated. Rule out anoxic encephalopathy. SUBJECTIVE: The patient is still being intubated, sedated on propofol, but started moving limbs, opening eyes spontaneously. OBJECTIVE: GENERAL: Minimally responsive to verbal stimuli, spontaneous eye movement and spontaneous limb movement. VITAL SIGNS: As follows: Temperature afebrile, heart rate 90, blood pressure 149/60. HEENT: PERRLA. Extraocular muscles intact. NECK: Supple. No carotid bruit or thyromegaly. CHEST: Clear to auscultation. HEART: S1 and S2 regular. ABDOMEN: Soft. EXTREMITIES: Clubbing and cyanosis negative. LABORATORY DATA: Blood workup as follows: WBC , hemoglobin 9.9, hematocrit 29.4, platelet count 303,000. Chemistry shows sodium 149, potassium 3.6, chloride 114, carbon dioxide 28, anion gap of 11, BUN 56, creatinine 1.1. Total protein 5.8, albumin 2.5, albumin-globulin ration of 0.8. 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 RECOMMENDATION: Wean off the vent as tolerated, discontinue propofol and see the patient's mental status. If the patient is vent dependent, consider PEG and trach. Discussed with nursing staff taking care of the patient. Continue enteral feeding. We will follow with you. Overall, the patient's condition is critical. Long-term prognosis is guarded. In the interim, continue low dose beta-stacia through the NG tube. Continue hydralazine p.r.n. Continue Cardizem. Continue amiodarone. Continue DVT prophylaxis. Monitor electrolytes and supplement as needed. We will give 40 KCl elixir to supplement potassium. Francisca Almazan MD
[2017-01-18] MEDS: Levalbuterol 0.63 MG/3 ML Inhal Soln UD IH SCH ×6 (01:04→20:10)
[2017-01-18] MEDS: Propofol 10 mg/ml 1,000 MG/100 ML VIAL IV PRN ×3 (05:49→23:20)
[2017-01-18] MEDS: Insulin Reg-LOW-Coverage SC SCH ×5 (06:14→22:00)
[2017-01-18 07:04] LABS: ALB/GLOB RATIO 0.8 (1.1-1.8); ALKALINE PHOSPHATASE 142 U/L (38-133); ALT/SGPT 102 U/L (7-56); AST/SGOT 102 U/L (15-59); BILIRUBIN,TOTAL 1.1 mg/dL (0.2-1.3); BLOOD UREA NITROGEN 51 mg/dL (7-21); CALCIUM 7.6 mg/dL (8.4-10.5); CARBON DIOXIDE 28 mmol/L (21-33); CHLORIDE 117 mmol/L (98-107); GFR AFRICAN-AMERICAN > 60; GLUCOSE,RANDOM 135 mg/dL (70-110); POTASSIUM 4.2 mmol/L (3.6-5.0); SODIUM 153 mmol/L (132-148)
[2017-01-18 07:17] LABS: HEMATOCRIT 30.6 % (42.0-52.0); MEAN CELL VOLUME 98.7 fl (80.0-105.0); MEAN CORPUSCULAR HEMOGLOBIN 33.5 pg (25.0-35.0); WHITE BLOOD COUNT 92.5 10^3/ul (4.5-11.0)
[2017-01-18 07:18] LABS: MEAN PLATELET VOLUME 11.6 fl (7.0-11.0); PLATELET COUNT 331 10^3/uL (120.0-450.0); RED CELL DISTRIBUTION WIDTH 16.5 % (11.5-14.5)
[2017-01-18] MEDS ORDERED: Pantoprazole 40 mg Susp UD PO SCH (07:30)
[2017-01-18 08:34] LABS: BAND 5 % (0-2); NEUTROPHIL 67 % (50.0-70.0)
[2017-01-18 08:35] LABS: ANISOCYTOSIS 1+; ATYPICAL LYMPHOCYTE 2 % (0.0-0.0); HYPOCHROMIA 1+; METAMYELOCYTE 4 %; MYELOCYTE 5 %; PLATELET ESTIMATE NORMAL (NORMAL); POLYCHROMASIA SLIGHT
[2017-01-18 08:36] LABS: NUCLEATED RED BLOOD CELL 1 %; OVALOCYTES SLIGHT
--- NOTE | 2017-01-18 09:05 | PN ---
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 He is getting NG tube feedings at 50 mL/hour, tolerating well. PHYSICAL EXAMINATION VITAL SIGNS: His temperature is 101, pulse is 105, respirations are 28, and blood pressure is 147/49. SKIN: Warm and dry. HEAD: Atraumatic, normocephalic. EYES: Reactive to light. ENT: Seem to be within normal limits. NECK: Supple. No JVD. No thyroid enlargement. No lymph nodes. HEART: Regular rate and rhythm. Normal S1 and S2, but mildly tachycardic. LUNGS: Reveal mild rhonchi bilaterally. ABDOMEN: Soft. Decreased bowel sounds. GENITALIA: Deferred. RECTAL: Deferred. MUSCULOSKELETAL: No joint deformities. EXTREMITIES: Reveal no significant edema. NEUROLOGICAL: The patient is on Diprivan for sedation and on ventilator support. LABORATORY DATA: As far as the laboratories are concerned, his white count is 92.5, hemoglobin is 10.4, hematocrit 30.6 with platelets of 331,000. Arterial blood gas for 01/17/2017, was pH of 7.51, PCO2 of 36, PO2 of 77. Sodium is 153, potassium 4.2, chloride 117, CO2 of 28 with a BUN of 51, creatinine of 1.0, and a glucose of 135. Chest x-ray is pending. IMPRESSION: The patient is post-cardiac arrest and at this time is ventilator dependent for respiratory failure. The patient has a history of coronary artery disease, anemia, chronic obstructive pulmonary disease, coronary artery bypass, diverticulosis, gastritis, gastroesophageal reflux, benign prostatic hypertrophy, and asbestosis. He has chronic leukocytosis and is noted to have anemia as well. PLAN: As far as our plan, we will continue ventilator support and decrease the FIO2 as tolerated. Continue with aggressive pulmonary toilet. The patient is getting NG tube feedings and we will check the residuals. The patient is being considered for PEG and trach. We will follow his chest x-ray and arterial blood gas and continue with IV fluids, Plavix, bronchodilators, and follow closely. The patient is being followed by ID and antibiotics, will be evaluated for fever. Yang Bey, MD
[2017-01-18] MEDS ORDERED: Vancomycin 2 GM in Sodium Chloride 0.9% 500 ML IVPB ONE (09:40)
--- NOTE | 2017-01-18 10:14 | RAD ---
HISTORY: fu COMPARISON: 01/17/2017 FINDINGS: LUNGS: Subsegmental atelectasis right base. Probable bilateral calcified pleural plaques. No acute infiltrate. PLEURA: No significant pleural effusion identified, no pneumothorax apparent. CARDIOVASCULAR: Normal heart size. No congestive change. ET tube, NG tube and right central venous infusion port are unchanged. OSSEOUS STRUCTURES: No significant abnormalities. VISUALIZED UPPER ABDOMEN: Normal. OTHER FINDINGS: None. IMPRESSION: No acute abnormality. Lines and tubes unchanged. 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
[2017-01-18] MEDS: Enoxaparin 40 mg Syringe SC SCH (10:15)
[2017-01-18] MEDS: Meropenem 1g/NS 100mL IVPB 1 GM/100 ML PIGGYBACK IVPB SCH ×2 (10:16→21:21)
[2017-01-18] MEDS: DAPTOmycin 510 MG in Sodium Chloride 0.9% 100 ML IV SCH (10:16)
[2017-01-18] MEDS: Pantoprazole 40 mg Susp UD PO SCH (10:21)
--- NOTE | 2017-01-18 11:54 | PN ---
DATE: SUBJECTIVE: The patient was admitted to the hospital with pain in the left lower abdomen, loin area. The patient had the x-ray which showed evidence of a fracture, which was confirmed by MRI involving the T12 vertebrae. The patient is in the ICU now. He had a cardiac arrest while he was in the medical floor. The patient is intubated, shows minimal progress from the time the patient was intubated after the code. PHYSICAL EXAMINATION: VITAL SIGNS: This morning; his pulse is 105, blood pressure 146/67, O2 sat is 90% on 50% of oxygen on the respirator. The patient is not conscious, sedated with Diprivan. LUNGS: I examined the lungs, basal crepitation is present. HEART: Sinus tachycardia. ABDOMEN: Soft. No tenderness. DINING ROOM MAID: The patient is unresponsive. LABORATORY DATA: The blood work shows the patient has a white count of 92,000, hemoglobin of 10.4, the patient has pseudoleukemic reaction from an infection. The patient is on antibiotics at this time. The patient's chemistry shows blood sugar is 135 and sodium is 153. The patient's liver enzymes are abnormal at 142. The patient's condition is critical and he is in the critical care unit at this time. The family does not want to activate the DNR or if the patient has a living will, so the patient is being treated with all modalities at this time trying to hope for improvement. His condition is of course critical at this time. His prognosis is poor. David Pavon MD MTDD
--- NOTE | 2017-01-18 14:56 | PN ---
DATE: 01/18/2017 SUBJECTIVE: The patient was seen early this morning in the ICU on 228, bed 7. The patient remains on a ventilator. There has been no fevers reports today. The patient did have fever yesterday. PHYSICAL EXAMINATION: VITAL SIGNS: Temperature 98, T-max is 101, blood pressure is 140/60, and respiratory rate is on the ventilator, and heart rate of 102. HEENT: Remarkable. NECK: Supple. LUNGS: Decreased breath sound. HEART: Normal, S1 and S2. ABDOMEN: Soft. LABORATORY DATA: Reviews a white count is up to 92,500, hemoglobin 10, and platelets of 331. BUN of 51, creatinine is 1.0, LFTs are noted. AST 102, ALT 102, alkaline phosphatase 142, last procalcitonin 01/12/2017 was 0.2. Microbiology reveals blood cultures from 01/13/2017 are negative. There is one positive blood cultures from one bottle, which is coagulase-negative staph. Dr. Yang Adamson's note is reviewed, note is reviewed, and Dr. Eliza Morales's note is reviewed. MEDICATIONS: Review of the medications, the patient to be on daptomycin and meropenem. ASSESSMENT AND PLAN: An 86-year-old male status post cardiac arrest, respiratory failure, intubated on a ventilator, one blood culture coagulase negative Staphylococcus most rule out port related bacteremia with right-sided mastoiditis, and with a T12 compression, coronary artery disease, chronic obstructive lung diseases, history of Félix positive hemolytic anemia, history of diverticulitis, gastroesophageal reflux disease and history of benign prostatic hypertrophy, day number 10 of daptomycin and day #6 of meropenem, now with an increased leukocytosis with leukemoid reaction, no diarrhea makes the clostridium difficile less likely, intraabdominal abscess is less likely, now with increased alk phos and liver function tests. We will repeat rodrigues cultures and order an ultrasound of gallbladder at bedside and differential with 92,000 white count reveals 57% neutrophils, 5% bands, 11% lymphocystes with anemia. We will follow closely with you. Tino Burger MD
--- NOTE | 2017-01-18 15:17 | PN ---
DATE: I was asked to see the patient as a consult for tracheostomy and the PEG. The PEG has been referred to GI. As far as the tracheostomy, the patient was examined and certainly is a candidate for at some point. Presently, there is a discussion between the power of consumer attorney and the durable living will and I believe he is being referred to the ethics committee for resolution as much as possible. From my point of view, the surgery will be delayed until this is firmly resolved, but once it is resolved, we can move quickly. Ronnie Cooper MD
--- NOTE | 2017-01-18 15:52 | PN ---
DATE: 01/18/2017 REASON FOR CONSULTATION: Followup cardiac evaluation, status post CPR, status post cardiac arrest, unresponsive, vent dependent, rule out anoxic encephalopathy. SUBJECTIVE: Still being intubated, spontaneous both arms movement and eye movement, does not follow simple command. OBJECTIVE: GENERAL: Not in apparent distress, though patient is sedated. VITAL SIGNS: Temperature afebrile, heart rate 104, blood pressure 152/68. HEENT: PERRLA. Extraocular muscles intact. NECK: Supple. No carotid bruit or thyromegaly. CHEST: Clear to auscultation. HEART: S1 and S2 regular. ABDOMEN: Soft. EXTREMITIES: Clubbing and cyanosis negative. LABORATORY DATA: Blood workup as follows: WBC 92.5, hemoglobin 10.2, hematocrit 30.6, platelet count 331. Chemistry shows sodium 153, potassium 4.2, chloride 117, carbon dioxide 28, anion gap of 12, BUN 51, creatinine 1.0. Total protein 6, albumin 2.6, albumin-globulin ration of 0.6. IMPRESSION: An 86-year-old male with a past medical history significant for coronary artery disease, status post coronary artery bypass graft 20 to 22 years ago, status post multiple stents, chronic obstructive pulmonary disease, now on the medical floor, found to be unresponsive, unknown downtime, status post cardiopulmonary resuscitation, intubated, now the patient vent dependent and possible anoxic encephalopathy. He is scheduled for percutaneous endoscopic gastrostomy and trach on Friday, protein-calorie malnutrition, hypernatremia. RECOMMENDATION: Continue beta-stacia, NG feeding started yesterday tube feeding. We will increase free fluid about 200 mL for hypernatremia. Continue DVT prophylaxis. Continue ventilator till the patient gets PEG and trach. Overall, the patient's condition is critical. Long-term prognosis is guarded. We will follow with you. As mentioned, we will increase free fluid to 300 mL q.6 hours . Continue supportive care. Thank you Dr. Pavon for providing us the opportunity in taking care of the patient, Chidi Maddox. Francisca Almazan MD
--- NOTE | 2017-01-18 16:19 | US ---
HISTORY: size of CBD COMPARISON: None. TECHNIQUE: Sonographic evaluation of the abdomen. FINDINGS: LIVER: Measures 14.1 cm. Diffusely increased echogenicity of the liver parenchyma. No mass. No intrahepatic bile duct dilatation. GALLBLADDER: Status post cholecystectomy COMMON BILE DUCT: Measures pre mm. No stones. No dilatation. PANCREAS: Grossly limited evaluation due to bowel gas RIGHT KIDNEY: Measures 12.3cm. Normal cortical echogenicity. No calculus or hydronephrosis. Lower pole simple cortical cyst, 2.3 x 1.6 x 2.8 cm. LEFT KIDNEY: Measures 10.1cm. Normal echogenicity. No calculus, mass, or hydronephrosis. SPLEEN: Normal in size and contour. No mass. AORTA: No aneurysmal dilatation. IVC: Unremarkable. OTHER FINDINGS: None. IMPRESSION: 2.8 cm right lower pole renal cortical cyst. Fatty infiltration of the liver. Status post cholecystectomy. 3 mm CBD.
--- NOTE | 2017-01-19 00:18 | PN ---
DATE: 01/18/2017 Hospital visiting, intensive care unit. For Dr. Walton. SUBJECTIVE: The patient is an 86-year-old male, seen lying supine, intubated, with patient being sedated. The patient is seen with his sitting at the bedside, appears to be in no acute distress. He is known to have suffered a cardiac arrest with respiratory failure afterwards with the patient known to have past history significant for hemolytic anemia, now with leukocytosis, positive Féilx test with weaning attempts not tolerated at present. There is consideration for a tracheostomy and PEG tube as indicated. PHYSICAL EXAMINATION: VITAL SIGNS: Temperature 98.5, pulse 96, respirations ventilatory controlled, blood pressure 120/49, with an FiO2 of 50, with an oxygen saturation of 100. HEENT: The patient is intubated. Does not open eyes to command. He is sedated. NECK: No nodes. HEART: Tachy rate, regular rhythm. LUNGS: Scattered rhonchi. ABDOMEN: Obese, soft, nontender. EXTREMITIES: No edema with anti-embolism support. NEUROLOGIC: Sedated, does not respond to oral command. SKIN: Warm and dry. LABORATORY DATA: Patient's labs were done. White blood cell count of 92,500, up from 73,000, possible leukemoid reaction. Hemoglobin 10.4, hematocrit 30.6, platelet count of 331,000. The chem metabolic panel is showing a sodium of 153, chloride of 117, with a BUN of 51, creatinine 1.0, AST of 102, ALT of 102, alkaline phosphatase of 142, B-natriuretic peptide of 4710. The patient's other tests today include a chest x-ray that was done earlier today, was read as no acute abnormality, lines and tubes unchanged, probable asbestos related pleural disease. He had an abdominal ultrasound done, it was not read yet. ASSESSMENT: The assessment for this patient is that of respiratory failure, intubated; status post myocardial infarction; history of compression fracture; elevated blood sugars; electrolyte abnormalities with hypernatremia; abnormal LFTs. Known hemolytic anemia, chronic obstructive pulmonary disease. PLAN: The plan for this patient is to continue present medical regimen as per Dr. Pavon. We will continue present medical regimen with request for consult with Dr. Cobb and Dr. Ball, Renal regarding his electrolyte abnormalities with the labs to be monitored. The patient will be monitored clinically. The prognosis for this patient unfortunately is guarded. Wojciech Wynne MD
[2017-01-19] MEDS: Levalbuterol 0.63 MG/3 ML Inhal Soln UD IH SCH ×4 (02:21→19:55)
[2017-01-19] MEDS: Propofol 10 mg/ml 1,000 MG/100 ML VIAL IV PRN ×4 (03:27→20:55)
[2017-01-19] MEDS: Insulin Reg-LOW-Coverage SC SCH ×4 (04:00→20:57)
[2017-01-19 05:43] LABS: ARTERIAL BLOOD GAS HCO3 18.1 mmol/L (21-28); ARTERIAL BLOOD GAS PH 7.45 (7.35-7.45)
[2017-01-19 06:51] LABS: HEMATOCRIT 30.5 % (42.0-52.0); MEAN CELL VOLUME 99.3 fl (80.0-105.0); MEAN CORPUSCULAR HEMOGLOBIN 32.9 pg (25.0-35.0); MEAN CORPUSCULAR HGB CONC 33.1 g/dl (31.0-37.0); MEAN PLATELET VOLUME 11.3 fl (7.0-11.0); PLATELET COUNT 340 10^3/uL (120.0-450.0); RED CELL DISTRIBUTION WIDTH 16.5 % (11.5-14.5)
[2017-01-19 06:54] LABS: WHITE BLOOD COUNT 103.1 10^3/ul (4.5-11.0)
[2017-01-19] MEDS: Pantoprazole 40 mg Susp UD PO SCH (07:00)
[2017-01-19 07:06] LABS: ALB/GLOB RATIO 0.7 (1.1-1.8); BILIRUBIN,TOTAL 0.8 mg/dL (0.2-1.3); CALCIUM 7.3 mg/dL (8.4-10.5); POTASSIUM 4.5 mmol/L (3.6-5.0); TOTAL PROTEIN 5.8 g/dL (5.8-8.3)
[2017-01-19] MEDS: Enoxaparin 40 mg Syringe SC SCH (09:32)
[2017-01-19] MEDS: Meropenem 1g/NS 100mL IVPB 1 GM/100 ML PIGGYBACK IVPB SCH ×2 (09:34→21:01)
[2017-01-19] MEDS: Nystatin 100,000 Units/gm Topical Pow(15 gm) TOP SCH ×2 (09:40→17:42)
--- NOTE | 2017-01-19 10:39 | PN ---
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 He is tolerating NG tube feedings at 70 mL an hour and hemodynamically stable. PHYSICAL EXAMINATION: VITAL SIGNS: His temperature is 99, his pulse is 95, respirations are 26 and blood pressure is 110/48. SKIN: Warm and dry. HEAD: Atraumatic and normocephalic. EYES: Reactive to light. Ears, nose, and throat seem to be within normal limits. NECK: Supple. No JVD. No thyroid enlargement. No lymph nodes. HEART: Regular rate and rhythm. Normal S1 and S2. LUNGS: Reveal mild rhonchi bilaterally. ABDOMEN: Soft. Decreased bowel sounds. GENITALIA Deferred. RECTAL: Deferred. MUSCULOSKELETAL: No joint deformities. EXTREMITIES: Reveal trace lower extremity edema. NEUROLOGICAL: The patient is sedated on ventilator. LABORATORY DATA: As far as his laboratories are concerned, his white count of 103.1, hemoglobin is 10.1, and hematocrit is 30.5 with platelets of 340,000. Arterial blood gas revealed pH of 7.45, pCO2 of 26, and pO2 of 126. Sodium is 150, potassium is 4.5, chloride is 116, CO2 of 26 with a BUN of 72, creatinine of 1.9, and a glucose of 158. IMPRESSION: The patient is post cardiac arrest and at this time is ventilator dependent with respiratory failure. The patient has a history of coronary artery disease, anemia, chronic obstructive pulmonary disease, status post coronary artery bypass, diverticulosis, gastritis, gastroesophageal reflux, benign prostatic hypertrophy, asbestosis, chronic leukocytosis and renal insufficiency. PLAN: As far as our plan, we will continue with ventilator support and decrease FIO2 as tolerated. The patient is getting aggressive pulmonary toilet as well. Continue NG tube feedings and follow residuals and follow the patient's chest x-ray and laboratory that correct as needed. We will continue to give IV fluids, Plavix and bronchodilators and his antibiotics. We would continue to feed aggressively along with the other consultants and the primary care doctor. Yang Adamson MD [facility] # [id number]
[2017-01-19] MEDS: DAPTOmycin 510 MG in Sodium Chloride 0.9% 100 ML IV SCH (11:56)
--- NOTE | 2017-01-19 12:47 | PN ---
SUBJECTIVE: The patient is in the critical care unit. He is an 86-year-old white male. The patient was admitted in critical care unit post cardiac arrest. The patient has a past history of coronary artery disease, chronic obstructive lung disease, mild dementia. The patient was admitted to the hospital initially for abnormal white cell count and sepsis. The patient also had an altered mental state. The patient was seen this morning. He is in the critical care unit. His condition is critical. He has been maintained on Diprivan because the patient is agitated when he is not sedated. PHYSICAL EXAMINATION VITAL SIGNS: Temperature is 99, pulse is 105, blood pressure is within normal limits. CVS: S1, S2 present Lungs: clear Abdomen: soft Ext: no edema bilaterally The patient is not responsive. At this time, the patient is on the ventilator and his medications are administered by intravenous method. The patient has treatment and consultation from Dr. Almazan, the nursing home assistant. The patient is also treated by the child specialist, Infectious Disease and student success advisor. The family has not made any decision regarding the final resolution, or treatment plan for this patient at this time. We will continue current management and discuss the treatment plan for this patient when they are here. David Pavon MD JAYDEN
--- NOTE | 2017-01-19 14:46 | PN ---
DATE: 01/19/2017 SUBJECTIVE: The patient seen in bed, in no acute distress and nontoxic. He appears to be comfortable, remains intubated on a ventilator. PHYSICAL EXAMINATION: VITAL SIGNS: Temperature of 98; blood pressure is 110/48; respiratory rate, on the vent; heart rate of 95. HEENT: Unremarkable. NECK: Supple. LUNGS: Decreased breath sounds. HEART: Normal S1, S2. ABDOMEN: Soft. LABORATORY DATA: Reveals white count is 103,000, hemoglobin of 10, platelet of 340. The patient has 5% bandemia as of yesterday and BUN is 72, creatinine is 1.9, alkaline phosphatase is 142. Urinalysis is noted from the 01/12/2017 and microbiology is pending. Review of orders reveal the patient to be on daptomycin, was given a dose of vancomycin. The patient is on meropenem. Dr. Wojciech Wynne note and Dr. Welch's note is reviewed. ASSESSMENT AND PLAN: This is an 86-year-old male, status post cardiac arrest, respiratory failure, intubated on ventilator and with one blood culture positive for coagulase negative Staphylococcus now with possible Port-A-Cath bacteremia. Port-A-Cath related right-sided mastoiditis and T12 compression, coronary artery disease, chronic obstructive lung disease, history of Félix positive hemolytic anemia, history of diverticulitis, gastroesophageal reflux disease, history of benign prostatic hypertrophy, day number 11 of daptomycin and day number 7 of meropenem. A dose of vancomycin was given yesterday, now with acute kidney injury with a creatinine increasing to 1.9. Awaiting for repeat blood cultures, urine cultures, urinalysis, sputum culture and abdominal ultrasound because an increasing alkaline phosphate. We will continue the meropenem, daptomycin and was given a dose of vancomycin yesterday. Pending repeat rodrigues-culture results and the patient's procalcitonin yesterday was 0.26 with abdominal ultrasound reported as no dilatation in the common bile duct, 3 mm common bile duct and status post cholecystectomy. Then x-ray from yesterday, chest x-ray is reported as subsegmental atelectasis. Now with systematic inflammatory response syndrome with leukocytosis and tachycardia. Workup in progress. Tino Burger MD
--- NOTE | 2017-01-19 22:54 | PN ---
DATE: 01/19/2017 Hospital visiting, intensive care unit. For Dr. Walton. SUBJECTIVE: The patient is an 86-year-old male, seen lying supine, intubated in the Intensive Care Unit. His at the bedside. He is quite lethargic due to meds while intubated with the patient arousable as per nursing. He is status post cardiac arrest with respiratory failure, now vent dependent with consideration for a tracheostomy and PEG tube as per family. He is followed by Dr. Walton for hemolytic anemia and he is being monitored also for his electrolyte imbalances. He has a leukemoid reaction, which we are following. PHYSICAL EXAMINATION: VITAL SIGNS: Temperature 98.6, pulse 109, ventilatory support with on a vent, blood pressure 121/59. HEENT: Unremarkable with the patient being intubated. Does not open eyes to command. NECK: No nodes. HEART: Regular rate. Occasional ectopic beats. LUNGS: Scattered rhonchi. ABDOMEN: Obese, soft, nontender. EXTREMITIES: No spontaneous movement. No edema. Anti-embolism support hose on. NEUROLOGIC: Sedated, does not respond to questioning. SKIN: Otherwise, warm and dry. LABORATORY DATA: The patient's labs were done. White blood cell count of 103,000, which is leukemoid reaction secondary to his metabolic condition, Dr. Walton believes. Hemoglobin 10.1, hematocrit 30.5, platelet count of 340,000. Chem metabolic panel showing a sodium of 150, chloride of 116, BUN of 72, creatinine 1.9 with a calcium of 7.3, AST of 60, ALT of 78, alkaline phosphatase of 142. His most recent blood gas showed a pH of 7.45. ASSESSMENT: The assessment for this patient is that of respiratory failure, vent dependent; status post cardiac arrest, positive blood cultures, atherosclerotic cardiovascular disease, status post stenting, Félix, positive hemolytic anemia, gastroesophageal reflux disease, benign prostatic hypertrophy, mild dementia history, hypernatremia, chronic obstructive pulmonary disease and abnormal liver function tests. PLAN: The plan for this patient after conversation with Dr. Walton are to continue his present medical regimen with tracheostomy and PEG tube as per consultants recommendations. Prognosis for this patient guarded. We will monitor clinically with labs. Wojciech MD Ricci
--- NOTE | 2017-01-19 23:48 | PN ---
DATE: 01/19/2017 REASON FOR CONSULTATION: Followup and cardiac evaluation, status post CPR, status post cardiac arrest, unresponsive, vent dependent, rule out anoxic encephalopathy. SUBJECTIVE: The patient still on vent, sedated. PHYSICAL EXAMINATION: GENERAL: Not responsive to verbal stimuli, spontaneous both eyes movement and both upper extremities movement, not in apparent distress. VITAL SIGNS: Temperature afebrile, heart rate 109, blood pressure 132/72. HEENT: PERRLA. Extraocular muscles intact. NECK: Supple. No carotid bruit or thyromegaly. CHEST: Clear to auscultation. HEART: S1 and S2 regular. ABDOMEN: Soft. EXTREMITIES: Clubbing and cyanosis negative. LABORATORY DATA: Blood workup as follows: WBC 103.1, hemoglobin 10.1, hematocrit 30.5, platelet count 340. Chemistry shows sodium 150, potassium 4.5, chloride 116, carbon dioxide 26, anion gap 13, BUN 72, creatinine 1.6. IMPRESSION: Status post cardiopulmonary resuscitation, status post was intubated, vent dependent, rule out anoxic encephalopathy, history of coronary artery disease status post multiple stents in the past, history of coronary artery bypass graft, hypernatremia, renal insufficiency, prerenal azotemia. Recent echocardiogram on 01/13/2017 after this event on this admission showed ejection fraction of 45% to 50%, mild mitral regurgitation, mild tricuspid regurgitation. RECOMMENDATIONS: Family is in the dilemma for decision making reference, PEG and trach. Continue vent management till the family makes decision for PEG and trach. Continue NG feeding. I will increase fluid to 400 mL q. 6. Continue DVT prophylaxis, continue vent management, continue antibiotics. Once the patient family meet PEG and trach, consider PEG and trach. Overall, the patient's condition is critical. Long-term prognosis is guarded. In the interim, continue baby aspirin 81 mg daily, continue Cardizem 60 mg daily, continue metoprolol 25 mg b.i.d., and continue Plavix. Once the decision has been made for tracheostomy, we will hold aspirin and Plavix is on hold for couple of days. We will follow with you. Increase free fluid, free water to 400 mL q. 6 for prerenal azotemia as well as hypernatremia. We will discontinue Plavix. Anticipating the patient may need PEG and trach, which is on hold already. We will repeat blood workup,calcium, mag, phos, as well as CBC. Thank you Dr. Pavon for providing us the opportunity in taking care of the patient, Chidi Maddox. Francisca Almazan MD
[2017-01-20] MEDS: Levalbuterol 0.63 MG/3 ML Inhal Soln UD IH SCH ×4 (02:45→19:55)
[2017-01-20] MEDS: Propofol 10 mg/ml 1,000 MG/100 ML VIAL IV PRN ×2 (02:57→09:28)
[2017-01-20] MEDS: Insulin Reg-LOW-Coverage SC SCH ×2 (02:58→10:42)
--- NOTE | 2017-01-20 03:11 | CON ---
DATE: 01/19/2017 REASON FOR CONSULTATION: Acute kidney injury, leukocytosis and hypernatremia. HISTORY OF PRESENT ILLNESS: The patient is seen in the ICU, he is lying in bed. He is unable to provide any history. He is on mechanical ventilation, he is sedated. History is obtained from the chart. An 86-year-old male initially admitted on 01/07/2017 because of intractable pain in his left lower abdomen and groin area. As per the chart, the patient had pain for 3 weeks prior to presentation. Workup revealed compression fracture of T12 vertebra, abdominal CT did not reveal any intra-abdominal pathology. MRI of his lumbar spine showed severe compression deformity of T12 and severe DJD. The patient underwent biopsy to rule out abscess. Subsequently, the patient had an ultrasound of his abdomen yesterday, which showed right kidney to be 12.3 cm without hydronephrosis and left kidney to be 10 cm. He was also found to have 2.8 cm right lower old renal cyst. The patient was transferred to the ICU because he was found unresponsive on the floor. He was intubated, sedated, and brought to the ICU. Consultation was requested today because of hypernatremia. The patient sodium caron to 153, today sodium is 150. He also developed acute kidney injury, creatinine went from 1.0 to 1.9 today. PAST MEDICAL HISTORY: Hemolytic anemia, CAD, COPD, CABG, diverticulitis, gastritis, GERD, and BPH. FAMILY HISTORY: Not available. SOCIAL HISTORY: Ex-smoker, no alcohol use, and no IV drug abuse. ALLERGIES: NO KNOWN DRUG ALLERGIES. MEDICATIONS: At this time, hydralazine 10 mg IV q. 6 hours p.r.n., aspirin on hold, Ativan 0.8 mg p.r.n., Cardizem 60 mg p.o. q.i.d., amiodarone 200 mg daily, daptomycin 510 mg daily, Diprivan, Flomax, insulin, Imdur, Lopressor 25 mg b.i.d., Lovenox 40 mg, meropenem 1 gram q. 12 hours, nystatin, Protonix, hydrocortisone, labetalol, Tylenol and Xopenex. ASSESSMENT: An 86-year-old male with multiple medical problems including hemolytic anemia, coronary artery disease, coronary artery bypass graft, congestive heart failure, diverticulitis, status post cardiac arrest, on mechanical ventilation, sedated, and he is evaluated for hypernatremia and acute kidney injury. 1. Severe hypernatremia, dehydration. 2. Acute kidney injury, suspect largely prerenal azotemia, 3. Hypocalcemia. 4. Staphylococcus bacteremia. 5. Severe leukocytosis, 6. Advanced age. 7. Suspension for leukemia. PLAN: 1. Continue free water via NG tube. 2. Mix all IV piggybacks and D5W. 3. Cap D5W at 60 mL per hour. 4. The patient is critically ill, the patient have advanced directives, family is opposed, to his advanced directive, recommend ethic consult. 5. Continue antibiotics as per ID recommendations. More than 35 minutes were spent in the care of this critically ill patient. Eneida Cobb MD
[2017-01-20 06:10] LABS: ARTERIAL BLOOD GAS HCO3 24.5 mmol/L (21-28); ARTERIAL BLOOD GAS PH 7.52 (7.35-7.45)
[2017-01-20] MEDS: Pantoprazole 40 mg Susp UD PO SCH (06:18)
[2017-01-20 06:50] LABS: HEMATOCRIT 29.1 % (42.0-52.0); MEAN CORPUSCULAR HEMOGLOBIN 32.3 pg (25.0-35.0); MEAN CORPUSCULAR HGB CONC 32.6 g/dl (31.0-37.0); MEAN PLATELET VOLUME 11.6 fl (7.0-11.0); PLATELET COUNT 338 10^3/uL (120.0-450.0); RED CELL DISTRIBUTION WIDTH 16.4 % (11.5-14.5)
[2017-01-20 07:08] LABS: ALB/GLOB RATIO 0.8 (1.1-1.8); ALKALINE PHOSPHATASE 133 U/L (38-133); ALT/SGPT 70 U/L (7-56); AST/SGOT 64 U/L (15-59); BILIRUBIN,TOTAL 0.6 mg/dL (0.2-1.3); BLOOD UREA NITROGEN 57 mg/dL (7-21); CALCIUM 7.1 mg/dL (8.4-10.5); CARBON DIOXIDE 26 mmol/L (21-33); CHLORIDE 116 mmol/L (98-107); GFR AFRICAN-AMERICAN > 60; GLUCOSE,RANDOM 97 mg/dL (70-110); MAGNESIUM 2.5 mg/dL (1.7-2.2); PHOSPHOROUS 3.1 mg/dL (2.5-4.5); POTASSIUM 3.6 mmol/L (3.6-5.0); SODIUM 149 mmol/L (132-148); TOTAL PROTEIN 5.6 g/dL (5.8-8.3)
[2017-01-20 07:11] LABS: WHITE BLOOD COUNT 93.7 10^3/ul (4.5-11.0)
--- NOTE | 2017-01-20 08:01 | RAD ---
HISTORY: fu COMPARISON: 01/18/2017 FINDINGS: The endotracheal tube terminates 4.7 cm proximal to the melina. The right IJV line terminates at the cavoatrial junction. The nasogastric tube terminates in the stomach. Move LUNGS: There is confluent airspace disease in the left lower lobe worse since the prior examination. There is also airspace disease in the right lower lobe. PLEURA: There are probable small pleural effusions, larger on the left. No pneumothorax. There are calcified pleural plaques. CARDIOVASCULAR: Normal. OSSEOUS STRUCTURES: No significant abnormalities. VISUALIZED UPPER ABDOMEN: Normal. OTHER FINDINGS: None. IMPRESSION: Worsening bilateral lower lobe airspace disease likely pneumonia, worse on the left. Small pleural effusions, larger on the left.
--- NOTE | 2017-01-20 09:27 | CP.PCM.PCO ---
Physician Communication Note - Physician Communication Note Physician Communication Note: Discussed with Palliative, family wants Trach/PEG , OR for Trach
--- NOTE | 2017-01-20 09:29 | CP.PCM.PN ---
<Finn Bailey - Last Filed: 01/20/17 20:21> Subjective - Date & Time of Evaluation Date of Evaluation: 01/20/17 Time of Evaluation: 07:00 - Subjective Subjective: Heme/ onc note for Dr Walton: Pt seen and examined at bedside. No acute events overnight. Pt is ventilator so far unable wean from vent. Pt is sedated with propofol. ROS unobtainable. Objective - Vital Signs/Intake and Output Vital Signs (last 24 hours): Temp Pulse Resp BP Pulse Ox 100.2 F H 93 H 26 H 142/55 L 93 L 01/20/17 04:00 01/20/17 06:00 01/19/17 07:08 01/20/17 06:00 01/20/17 06:00 Intake and Output: 01/20/17 01/20/17 06:59 18:59 Intake Total 1300 Output Total 800 Balance 500 - Medications Medications: Current Medications Acetaminophen (Tylenol 650mg/20.3ml Solution Ud) 650 mg PO Q6H PRN PRN Reason: fever Last Admin: 01/17/17 22:28 Dose: 650 mg Amiodarone HCl (Cordarone) 200 mg PO DAILY [facility] Last Admin: 01/19/17 09:34 Dose: 200 mg Aspirin (Aspirin Chewable) 81 mg PO DAILY [facility] Last Admin: 01/17/17 09:18 Dose: 81 mg Diltiazem HCl (Cardizem) 60 mg PO QID [facility] Last Admin: 01/19/17 21:01 Dose: 60 mg Enoxaparin Sodium (Lovenox) 40 mg SC DAILY [facility] PRN Reason: Protocol Last Admin: 01/19/17 09:32 Dose: 40 mg Hydralazine HCl (Apresoline) 10 mg IVP Q6 PRN PRN Reason: for SBP>170 & or Diastolic>100 Hydrocortisone Sodium Succinate (Solu-Cortef) 100 mg IVP Q12H [facility] Last Admin: 01/19/17 21:54 Dose: 100 mg Daptomycin 510 mg/ Sodium (Chloride) 100 mls @ 100 mls/hr IV Q24H [facility] Stop: 01/22/17 10:01 Last Admin: 01/19/17 11:56 Dose: 100 mls/hr Meropenem 1g/NS 100mL IVPB (Meropenem 1g/Ns 100ml Ivpb) 1 gm in 100 mls @ 100 mls/hr IVPB Q12 YESSI PRN Reason: Protocol Stop: 01/20/17 10:16 Last Admin: 01/19/17 21:01 Dose: 100 mls/hr Propofol (Diprivan) 1,000 mg in 100 mls @ 18.9 mls/hr IV .Q5H18M PRN; Protocol ; 35 MCG/KG/MIN PRN Reason: TITRATE PER MD ORDER Last Admin: 01/20/17 02:57 Dose: 30 mcg/kg/min, 16.2 mls/hr Dextrose (Dextrose 5% In Water 1000 Ml) 1,000 mls @ 60 mls/hr IV .[id number] [facility] Last Admin: 01/20/17 08:16 Dose: 60 mls/hr Insulin Human Regular (Humulin R Low) 0 units SC Q6H YESSI PRN Reason: Protocol Last Admin: 01/20/17 02:58 Dose: Not Given Isosorbide Mononitrate (Imdur) 60 mg PO DAILY [facility] Last Admin: 01/19/17 09:34 Dose: 60 mg Labetalol HCl (Trandate) 10 mg IV Q3H PRN PRN Reason: Systolic Blood Pressure Levalbuterol HCl (Xopenex) 0.63 mg IH [id number] [facility] Last Admin: 01/20/17 07:44 Dose: 0.63 mg Levalbuterol HCl (Xopenex) 0.63 mg IH Q2 PRN PRN Reason: Shortness of Breath Last Admin: 01/14/17 11:25 Dose: 0.63 mg Lorazepam (Ativan) 0.5 mg PO HS PRN; Protocol PRN Reason: anxiety/insomnia Last Admin: 01/11/17 21:16 Dose: 0.5 mg Metoprolol Tartrate (Lopressor) 25 mg PO BID [facility] Last Admin: 01/19/17 17:42 Dose: 25 mg Nystatin (Nystop Topical Powder) 0 gm TOP BID [facility] Last Admin: 01/19/17 17:42 Dose: 1 u Pantoprazole Sodium (Protonix Susp) 40 mg PO 0600 [facility] Last Admin: 01/20/17 06:18 Dose: 40 mg Tamsulosin HCl (Flomax) 0.4 mg PO DAILY [facility] Last Admin: 01/19/17 09:34 Dose: 0.4 mg - Labs Labs: 01/20/17 06:20 01/20/17 06:20 PT 13.7 Seconds (9.9-11.8) H 01/12/17 04:00 INR 1.27 (0.93-1.08) H 01/12/17 04:00 APTT 32.7 Seconds (23.7-30.8) H 01/12/17 04:00 - Constitutional Appears: No Acute Distress - Head Exam Head Exam: ATRAUMATIC - Eye Exam Eye Exam: EOMI - ENT Exam ENT Exam: Mucous Membranes Moist - Respiratory Exam Respiratory Exam: Clear to Ausculation Bilateral, Rhonchi. absent: Rales, Wheezes - Cardiovascular Exam Cardiovascular Exam: RRR, +S1, +S2 - GI/Abdominal Exam GI & Abdominal Exam: Soft. absent: Distended, Tenderness - Extremities Exam Extremities Exam: absent: Calf Tenderness, Pedal Edema - Skin Skin Exam: Dry, Intact, Warm Assessment and Plan - Assessment and Plan (Free Text) Assessment: 86 M with pmh of hemolytic anemia, CAD, COPD, CABG, hx of diverticulitis, gastritis, GERD, BPPH, Asbestosis, presents to the ED with cough and L sided back pain and found to have T12 compression fracture. Pt has Félix positive, hemolytic anemia on prednisone now with a leukocytosis leukomoid rxn vs sepsis vs infection. Pt had a cardiac arrest, epinephrine x 2, and vfib with shock x 1 and ROSC was achieved. Pt is currently intubate not tolerating weaning attempts. Awaiting ethics committee to resolve issues regarding patient living will vs POA wishes regarding Trach and PEG. - Intubated unable wean form vent; sedated with propofol - Wean vent as tolerated - Trach and peg is pending resolving issues with ethics committee regarding POA vs advance directives - Palliative consult - working with family regarding goals of care POA vs advance directives - F/u surgery team recs - Cardio -NSTEMI vs post cpr elevation of troponin, Cont Amio, aspirin, plavix, metoprolol and cardizem - wbc inc 93.7 - likely leukomoid reaction - flow cytometry of the blood was negative - peripheral smear showed leukomoid reaction - Ordered Jak2 mutation, BCR/abl, Will f/u - Solucortef 100mg BID - Neuro recs appreciated - MRI Brain - No acute intracranial finding, R mastoiditis - MRA- unremarkable - MRA neck - no stenosis - F/u ID recs - cont Dapto and Cristin - MRI of the thoracic spine - recent compression fracture of T12 with marrow edema anteriorly - CT abdomen showed new compression deformity of T12 and small epidural hemorrhage at this level. rec MRI - CXR- b/l calcified pleural plaques - Daily labs Dispo: Awaiting ethics committee to resolve issues regarding patient living will vs POA wishes. Case and plan was reviewed and discussed in detail with Dr Walton <Rowdy Walton P - Last Filed: 01/25/17 18:33> Objective - Vital Signs/Intake and Output Vital Signs (last 24 hours): Temp Pulse Resp BP Pulse Ox 97.6 F 115 H 20 135/73 98 01/24/17 07:46 01/24/17 10:00 01/24/17 08:13 01/24/17 07:46 01/24/17 07:46 - Labs Labs: 01/24/17 07:30 01/24/17 07:30 PT 13.7 Seconds (9.9-11.8) H 01/12/17 04:00 INR 1.27 (0.93-1.08) H 01/12/17 04:00 APTT 32.7 Seconds (23.7-30.8) H 01/12/17 04:00 Attending/Attestation - Attestation I have personally seen and examined this patient.: Yes I have fully participated in the care of the patient.: Yes I have reviewed all pertinent clinical information, including history, physical exam and plan: Yes
[2017-01-20] MEDS: Nystatin 100,000 Units/gm Topical Pow(15 gm) TOP SCH ×2 (09:30→17:09)
--- NOTE | 2017-01-20 09:46 | CP.PCM.PN ---
Subjective - Date & Time of Evaluation Date of Evaluation: 01/20/17 Time of Evaluation: 09:20 - Subjective Subjective: Patient continues to be on the ventilator and has low grade fevers. Objective - Vital Signs/Intake and Output Vital Signs (last 24 hours): Temp Pulse Resp BP Pulse Ox 100.2 F H 89 26 H 122/54 L 88 L 01/20/17 04:00 01/20/17 05:00 01/19/17 07:08 01/20/17 05:00 01/20/17 05:00 Intake and Output: 01/19/17 01/20/17 18:59 06:59 Intake Total 2306 200 Output Total 1501 Balance 805 200 - Medications Medications: Current Medications Acetaminophen (Tylenol 650mg/20.3ml Solution Ud) 650 mg PO Q6H PRN PRN Reason: fever Last Admin: 01/17/17 22:28 Dose: 650 mg Amiodarone HCl (Cordarone) 200 mg PO DAILY [facility] Last Admin: 01/19/17 09:34 Dose: 200 mg Aspirin (Aspirin Chewable) 81 mg PO DAILY [facility] Last Admin: 01/17/17 09:18 Dose: 81 mg Diltiazem HCl (Cardizem) 60 mg PO QID [facility] Last Admin: 01/19/17 21:01 Dose: 60 mg Enoxaparin Sodium (Lovenox) 40 mg SC DAILY [facility] PRN Reason: Protocol Last Admin: 01/19/17 09:32 Dose: 40 mg Hydralazine HCl (Apresoline) 10 mg IVP Q6 PRN PRN Reason: for SBP>170 & or Diastolic>100 Hydrocortisone Sodium Succinate (Solu-Cortef) 100 mg IVP Q12H [facility] Last Admin: 01/19/17 21:54 Dose: 100 mg Daptomycin 510 mg/ Sodium (Chloride) 100 mls @ 100 mls/hr IV Q24H [facility] Stop: 01/22/17 10:01 Last Admin: 01/19/17 11:56 Dose: 100 mls/hr Meropenem 1g/NS 100mL IVPB (Meropenem 1g/Ns 100ml Ivpb) 1 gm in 100 mls @ 100 mls/hr IVPB Q12 YESSI PRN Reason: Protocol Stop: 01/20/17 10:16 Last Admin: 01/19/17 21:01 Dose: 100 mls/hr Propofol (Diprivan) 1,000 mg in 100 mls @ 18.9 mls/hr IV .Q5H18M PRN; Protocol ; 35 MCG/KG/MIN PRN Reason: TITRATE PER MD ORDER Last Admin: 01/20/17 02:57 Dose: 30 mcg/kg/min, 16.2 mls/hr Dextrose (Dextrose 5% In Water 1000 Ml) 1,000 mls @ 60 mls/hr IV .[id number] [facility] Last Admin: 01/19/17 15:56 Dose: 60 mls/hr Insulin Human Regular (Humulin R Low) 0 units SC Q6H [facility] PRN Reason: Protocol Last Admin: 01/20/17 02:58 Dose: Not Given Isosorbide Mononitrate (Imdur) 60 mg PO DAILY [facility] Last Admin: 01/19/17 09:34 Dose: 60 mg Labetalol HCl (Trandate) 10 mg IV Q3H PRN PRN Reason: Systolic Blood Pressure Levalbuterol HCl (Xopenex) 0.63 mg IH [id number] [facility] Last Admin: 01/20/17 02:45 Dose: 0.63 mg Levalbuterol HCl (Xopenex) 0.63 mg IH Q2 PRN PRN Reason: Shortness of Breath Last Admin: 01/14/17 11:25 Dose: 0.63 mg Lorazepam (Ativan) 0.5 mg PO HS PRN; Protocol PRN Reason: anxiety/insomnia Last Admin: 01/11/17 21:16 Dose: 0.5 mg Metoprolol Tartrate (Lopressor) 25 mg PO BID [facility] Last Admin: 01/19/17 17:42 Dose: 25 mg Nystatin (Nystop Topical Powder) 0 gm TOP BID [facility] Last Admin: 01/19/17 17:42 Dose: 1 u Pantoprazole Sodium (Protonix Susp) 40 mg PO 0600 [facility] Last Admin: 01/20/17 06:18 Dose: 40 mg Tamsulosin HCl (Flomax) 0.4 mg PO DAILY [facility] Last Admin: 01/19/17 09:34 Dose: 0.4 mg - Labs Labs: 01/19/17 06:20 01/19/17 06:20 PT 13.7 Seconds (9.9-11.8) H 01/12/17 04:00 INR 1.27 (0.93-1.08) H 01/12/17 04:00 APTT 32.7 Seconds (23.7-30.8) H 01/12/17 04:00 - Constitutional Appears: Other (Intubated, sedated) - Head Exam Head Exam: NORMAL INSPECTION - ENT Exam Additional comments: ET tube in place - Respiratory Exam Respiratory Exam: Rales (scattered) - Cardiovascular Exam Cardiovascular Exam: +S1, +S2 - GI/Abdominal Exam GI & Abdominal Exam: Soft. absent: Tenderness Assessment and Plan - Assessment and Plan (Free Text) Plan: Assessment S/P cardiac arrest, etiology to be determined, but should consider myocardial infarction or cardiac arrhythmia; currently with ventilator-dependent respiratory failure and sepsis from healthcare-associated pneumonia (new onset) Coagulase negative staph in blood cx, R/O port-related bacteremia right sided mastoiditis noted on the MRI of the head T12 compression fracture CAD S/P CABG COPD history of asbestosis history of Coomb's positive hemolytic anemia history of diverticulitis gastritis GERD benign prostatic hyperplasia Plan continue Daptomycin day 12 (of 10-14 days); repeat blood cx are negative; echocardiogram does not show vegetations continue Merrem (day 8) for the mastoiditis but will extend it since the patient has pneumonia - will also add Doxycycline and gave a dose of IV Vancomycin yesteday - follow up final repeat blood cx results (negative so far) and sputum cx will continue to monitor clinically Overall prognosis is poor
--- NOTE | 2017-01-20 09:51 | PN ---
SUBJECTIVE: The patient is seen in the critical care unit post cardiac arrest. The patient was admitted with pseudoleukemic reaction with sepsis. The patient has history or chronic lung disease, asbestosis, coronary artery disease. The patient has history of mild dementia. PHYSICAL EXAMINATION VITAL SIGNS: This morning, his blood pressure is 101/60, the patient's heart rate is 93. O2 sat is 93% on 50% of oxygen. CVS: S1, S2 present Abd: soft Ext: no edema bilaterally Lungs: clear The patient's condition is clinically poor at this time. He is waiting to have trach done by Dr. Ronnie Cooper. The current management is for a critical care patient who is not able to eat or swallow his medications, so his medications are given to him intravenously. The family is continuing to request continued care for the patient and this is being done to the best of my knowledge. David Pavon MD MTDD
[2017-01-20] MEDS: Enoxaparin 40 mg Syringe SC SCH (10:33)
[2017-01-20] MEDS: DAPTOmycin 510 MG in Sodium Chloride 0.9% 100 ML IV SCH (10:41)
[2017-01-20] MEDS: Meropenem 1g/NS 100mL IVPB 1 GM/100 ML PIGGYBACK IVPB SCH (10:42)
[2017-01-20] MEDS: Acetaminophen 650mg/20.3ml solution UD PO PRN (12:00)
--- NOTE | 2017-01-20 13:50 | CP.PCM.PN ---
Subjective - Date & Time of Evaluation Date of Evaluation: 01/20/17 Time of Evaluation: 13:00 - Subjective Subjective: Intubated/ sedated. No acute findings Objective - Vital Signs/Intake and Output Vital Signs (last 24 hours): Temp Pulse Resp BP Pulse Ox 97 F L 108 H 26 H 138/48 L 96 01/20/17 08:00 01/20/17 10:32 01/19/17 07:08 01/20/17 10:32 01/20/17 09:00 Intake and Output: 01/20/17 01/20/17 06:59 18:59 Intake Total 1300 100 Output Total 800 Balance 500 100 - Medications Medications: Current Medications Acetaminophen (Tylenol 650mg/20.3ml Solution Ud) 650 mg PO Q6H PRN PRN Reason: fever Last Admin: 01/20/17 12:00 Dose: 650 mg Amiodarone HCl (Cordarone) 200 mg PO DAILY [facility] Last Admin: 01/20/17 10:31 Dose: 200 mg Aspirin (Aspirin Chewable) 81 mg PO DAILY [facility] Last Admin: 01/20/17 10:30 Dose: 81 mg Diltiazem HCl (Cardizem) 60 mg PO QID [facility] Last Admin: 01/20/17 10:31 Dose: 60 mg Docusate Sodium (Colace Liquid) 100 mg PO TID [facility] Enoxaparin Sodium (Lovenox) 40 mg SC DAILY [facility] PRN Reason: Protocol Last Admin: 01/20/17 10:33 Dose: 40 mg Hydralazine HCl (Apresoline) 10 mg IVP Q6 PRN PRN Reason: for SBP>170 & or Diastolic>100 Hydrocortisone Sodium Succinate (Solu-Cortef) 50 mg IVP Q12H [facility] Last Admin: 01/20/17 10:44 Dose: 50 mg Daptomycin 510 mg/ Sodium (Chloride) 100 mls @ 100 mls/hr IV Q24H [facility] Stop: 01/22/17 10:01 Last Admin: 01/20/17 10:41 Dose: 100 mls/hr Propofol (Diprivan) 1,000 mg in 100 mls @ 18.9 mls/hr IV .Q5H18M PRN; Protocol ; 35 MCG/KG/MIN PRN Reason: TITRATE PER MD ORDER Last Admin: 01/20/17 09:28 Dose: 10 mcg/kg/min, 5.4 mls/hr Dextrose (Dextrose 5% In Water 1000 Ml) 1,000 mls @ 60 mls/hr IV .[id number] [facility] Last Admin: 01/20/17 08:16 Dose: 60 mls/hr Doxycycline Hyclate 100 mg/ (Sodium Chloride) 100 mls @ 100 mls/hr IVPB Q12 [facility] PRN Reason: Protocol Last Admin: 01/20/17 10:44 Dose: 100 mls/hr Potassium Chloride (Potassium Chloride 20 Meq/100 Ml) 20 meq in 100 mls @ 50 mls/hr IVPB Q2H [facility] Stop: 01/20/17 15:14 Last Admin: 01/20/17 12:01 Dose: 50 mls/hr Insulin Human Regular (Humulin R Low) 0 units SC Q6H [facility] PRN Reason: Protocol Last Admin: 01/20/17 10:42 Dose: Not Given Isosorbide Mononitrate (Imdur) 60 mg PO DAILY [facility] Last Admin: 01/20/17 10:32 Dose: 60 mg Labetalol HCl (Trandate) 10 mg IV Q3H PRN PRN Reason: Systolic Blood Pressure Levalbuterol HCl (Xopenex) 0.63 mg IH [id number] [facility] Last Admin: 01/20/17 13:12 Dose: 0.63 mg Levalbuterol HCl (Xopenex) 0.63 mg IH Q2 PRN PRN Reason: Shortness of Breath Last Admin: 01/14/17 11:25 Dose: 0.63 mg Lorazepam (Ativan) 0.5 mg PO HS PRN; Protocol PRN Reason: anxiety/insomnia Last Admin: 01/11/17 21:16 Dose: 0.5 mg Metoprolol Tartrate (Lopressor) 25 mg PO BID [facility] Last Admin: 01/20/17 10:32 Dose: 25 mg Nystatin (Nystop Topical Powder) 0 gm TOP BID [facility] Last Admin: 01/19/17 17:42 Dose: 1 u Pantoprazole Sodium (Protonix Susp) 40 mg PO 0600 [facility] Last Admin: 01/20/17 06:18 Dose: 40 mg Sennosides (Senokot Tab) 8.6 mg PO DAILY [facility] Last Admin: 01/20/17 12:01 Dose: 8.6 mg Tamsulosin HCl (Flomax) 0.4 mg PO DAILY [facility] Last Admin: 01/20/17 10:31 Dose: 0.4 mg - Labs Labs: 01/20/17 06:20 01/20/17 06:20 PT 13.7 Seconds (9.9-11.8) H 01/12/17 04:00 INR 1.27 (0.93-1.08) H 01/12/17 04:00 APTT 32.7 Seconds (23.7-30.8) H 01/12/17 04:00 - Constitutional Appears: Chronically Ill - Eye Exam Eye Exam: Normal appearance, PERRL - ENT Exam ENT Exam: Mucous Membranes Moist - Respiratory Exam Respiratory Exam: NORMAL BREATHING PATTERN - Cardiovascular Exam Cardiovascular Exam: REGULAR RHYTHM, +S1, +S2 - GI/Abdominal Exam GI & Abdominal Exam: Soft, Normal Bowel Sounds - Extremities Exam Extremities Exam: Normal Capillary Refill, Normal Inspection - Neurological Exam Neurological Exam: Altered - Skin Skin Exam: Dry, Warm Assessment and Plan - Assessment and Plan (Free Text) Assessment: 86-year-old male with history of COPD, CAD s/p stents, CABG, dementia with behavioral disorder, anemia, chronic leukocytosis who presented with complaints of left sided flank pain, decreased appetite, chills, vomiting and dysuria on . A CT of abdomen revealed t 12 compression fracture small epidural hemorrhage. On the evening of 01/12/17 he was found unresponsive by nursing staff. He was in cardiac arrest> Code Blue > intubated > ROSC after [address] of head showed no acute changes. EEG consistent with hypoxemia. The patient remains sedated, intubated, attempts at weaning unsuccessful. Off sedation he can move extremities and follow simple command. Patient is stable/ not in multi organ failure. Patients family produced Advanced Directive on 01/15. Family wishes Peg/Trach and transition to LTAC. Ethic's committee meeting held today regarding interpretation of the terms of his Advance Directive. It was determined that patient's POA is acting with in the guidelines/stipulations of the patient's Advance Directives. Patient is scheduled for trach/PEG this . Advance care planning, 45 minutes
[2017-01-20] MEDS ORDERED: Potassium Chloride 40 mEq/30 ml LIQ UD PO STA (14:11)
--- NOTE | 2017-01-20 15:27 | CP.PCM.PN ---
Subjective - Date & Time of Evaluation Date of Evaluation: 01/20/17 Time of Evaluation: 08:30 - Subjective Subjective: Patient seen and examined this morning. Patient remains intubated, sedation titrated off, patient placed on CPAP. Patient unable to follow simple commands, moves all 4 extremities. Ethics committee met today to discuss interpretation of the terms of his Advance Directive. Objective - Vital Signs/Intake and Output Vital Signs (last 24 hours): Temp Pulse Resp BP Pulse Ox 97 F L 93 H 26 H 123/66 98 01/20/17 08:00 01/20/17 14:31 01/19/17 07:08 01/20/17 14:31 01/20/17 14:00 Intake and Output: 01/20/17 01/20/17 06:59 18:59 Intake Total 1300 100 Output Total 800 Balance 500 100 - Medications Medications: Current Medications Acetaminophen (Tylenol 650mg/20.3ml Solution Ud) 650 mg PO Q6H PRN PRN Reason: fever Last Admin: 01/20/17 12:00 Dose: 650 mg Amiodarone HCl (Cordarone) 200 mg PO DAILY [facility] Last Admin: 01/20/17 10:31 Dose: 200 mg Aspirin (Aspirin Chewable) 81 mg PO DAILY [facility] Last Admin: 01/20/17 10:30 Dose: 81 mg Diltiazem HCl (Cardizem) 60 mg PO QID [facility] Last Admin: 01/20/17 14:31 Dose: 60 mg Docusate Sodium (Colace Liquid) 100 mg PO TID [facility] Last Admin: 01/20/17 14:31 Dose: 100 mg Enoxaparin Sodium (Lovenox) 40 mg SC DAILY [facility] PRN Reason: Protocol Last Admin: 01/20/17 10:33 Dose: 40 mg Hydralazine HCl (Apresoline) 10 mg IVP Q6 PRN PRN Reason: for SBP>170 & or Diastolic>100 Hydrocortisone Sodium Succinate (Solu-Cortef) 50 mg IVP Q12H [facility] Last Admin: 01/20/17 10:44 Dose: 50 mg Daptomycin 510 mg/ Sodium (Chloride) 100 mls @ 100 mls/hr IV Q24H [facility] Stop: 01/22/17 10:01 Last Admin: 01/20/17 10:41 Dose: 100 mls/hr Propofol (Diprivan) 1,000 mg in 100 mls @ 18.9 mls/hr IV .Q5H18M PRN; Protocol ; 35 MCG/KG/MIN PRN Reason: TITRATE PER MD ORDER Last Admin: 01/20/17 09:28 Dose: 10 mcg/kg/min, 5.4 mls/hr Dextrose (Dextrose 5% In Water 1000 Ml) 1,000 mls @ 60 mls/hr IV .[id number] [facility] Last Admin: 01/20/17 08:16 Dose: 60 mls/hr Doxycycline Hyclate 100 mg/ (Sodium Chloride) 100 mls @ 100 mls/hr IVPB Q12 [facility] PRN Reason: Protocol Last Admin: 01/20/17 10:44 Dose: 100 mls/hr Insulin Human Regular (Humulin R Low) 0 units SC Q6H [facility] PRN Reason: Protocol Last Admin: 01/20/17 10:42 Dose: Not Given Isosorbide Mononitrate (Imdur) 60 mg PO DAILY [facility] Last Admin: 01/20/17 10:32 Dose: 60 mg Labetalol HCl (Trandate) 10 mg IV Q3H PRN PRN Reason: Systolic Blood Pressure Levalbuterol HCl (Xopenex) 0.63 mg IH [id number] [facility] Last Admin: 01/20/17 13:12 Dose: 0.63 mg Levalbuterol HCl (Xopenex) 0.63 mg IH Q2 PRN PRN Reason: Shortness of Breath Last Admin: 01/14/17 11:25 Dose: 0.63 mg Lorazepam (Ativan) 0.5 mg PO HS PRN; Protocol PRN Reason: anxiety/insomnia Last Admin: 01/11/17 21:16 Dose: 0.5 mg Metoprolol Tartrate (Lopressor) 25 mg PO BID [facility] Last Admin: 01/20/17 10:32 Dose: 25 mg Nystatin (Nystop Topical Powder) 0 gm TOP BID [facility] Last Admin: 01/19/17 17:42 Dose: 1 u Pantoprazole Sodium (Protonix Susp) 40 mg PO 0600 [facility] Last Admin: 01/20/17 06:18 Dose: 40 mg Sennosides (Senokot Tab) 8.6 mg PO DAILY [facility] Last Admin: 01/20/17 12:01 Dose: 8.6 mg Tamsulosin HCl (Flomax) 0.4 mg PO DAILY [facility] Last Admin: 01/20/17 10:31 Dose: 0.4 mg - Labs Labs: 01/20/17 06:20 01/20/17 06:20 PT 13.7 Seconds (9.9-11.8) H 01/12/17 04:00 INR 1.27 (0.93-1.08) H 01/12/17 04:00 APTT 32.7 Seconds (23.7-30.8) H 01/12/17 04:00 - Constitutional Appears: Well, Non-toxic, No Acute Distress - Head Exam Head Exam: ATRAUMATIC - Eye Exam Eye Exam: Normal appearance - Neck Exam Neck Exam: Full ROM - Respiratory Exam Respiratory Exam: Clear to Ausculation Bilateral, NORMAL BREATHING PATTERN - Cardiovascular Exam Cardiovascular Exam: +S1, +S2 - GI/Abdominal Exam GI & Abdominal Exam: Soft, Normal Bowel Sounds - Extremities Exam Extremities Exam: Normal Inspection - Neurological Exam Additional comments: awake, not alert, does not follow commands Assessment and Plan - Assessment and Plan (Free Text) Assessment: Patient seen and examined, case discussed on rounds with resident. 86 M admitted to the ICU for AMS and ventilatory dependent respiratory failure s /p cardiac arrest. Patient remains intubated, with good oxygen exchange yet with poor mental status. Se Patient responds to painful, noxious, stimuli. Patient likely would not tolerate an extubation, unable to protect airway, follow commands. Ethic's committee meeting held today regarding interpretation of the terms of his Advance Directive. It was determined that patient's POA is acting with in the guidelines/stipulations of the patient's Advance Directives. Patient is scheduled for trach/PEG this . Cardiac Arrest, with ROSC Leukocytosis Hypernatremia Respiratory failure, vent dependent Recommend: - Abx as per ID - Steroid taper - Free water 500cc Q6hr via NGT - Enema - replete K - lopressor - HOLD ASA, Plavix - Amio - GI ppx, DVT ppx - PEG/Trach
--- NOTE | 2017-01-20 17:13 | PN ---
DATE: 01/20/2017 SUBJECTIVE: The patient is seen in the ICU. He is on mechanical ventilation. He is sedated. He is receiving Diprivan at 35 mcg/kg/minute. He is also receiving IV antibiotics. He does not appear to be in any kind of distress. PHYSICAL EXAMINATION: GENERAL: Elderly male lying in bed in the ICU. VITAL SIGNS: Blood pressure 138/48, heart rate 108, respiratory rate 26, temperature 100.2, and T-max is 100.2. HEENT: Normocephalic, atraumatic, positive pallor, no icterus. NECK: Supple, no JVD. LUNGS: Bilateral equal air entry, bilateral equal expansion, no rales, no rhonchi. CARDIAC: S1 and S2. Regular rate and rhythm, no murmur, no rub. ABDOMEN: Distended, soft, nontender, bowel sounds present. EXTREMITIES: No lower extremity edema. INTAKE AND OUTPUT: 3600/2301. LABORATORY DATA: WBC 93.7, hemoglobin 9.5, hematocrit 29, platelets was 338. Sodium 149, potassium 3.6, chloride 116, CO2 of 26, BUN 57, creatinine 1.3, glucose 97, calcium 7.1, phosphorus 3.1 magnesium 2.5, albumin 2.4, corrected calcium is 8.2, AST 64, and ALT 70. ABG with pH 7.5, pCO2 30, and pO2 of 57. Cultures negative. Chest x-ray worsening bilateral lower lobe air space disease, likely pneumonia worse on the left, small pleural effusions, larger on the left. CURRENT MEDICATIONS: Apresoline, aspirin, Ativan, Cardizem 60 q.i.d., Colace 100 t.i.d., Cordarone 200 daily, daptomycin 510 q.24 hours, dextrose at 60 mL per hour, Diprivan, doxycycline 100 q.12 hours, Flomax 0.4 daily, insulin, Imdur 60, Lopressor 25 b.i.d., Lovenox, nystatin, potassium chloride 20 mEq x2, Protonix, Senokot, Solu-Cortef 50 IV q.12 hours, Trandate 10 mg IV q.3 hours p.r.n. Tylenol, Xopenex, Fleet's enema, meropenem 1 g q.12 hours, and Plavix 75. ASSESSMENT AND PLAN: An 86-year-old male with history of hemolytic anemia, coronary artery disease, chronic obstructive pulmonary disease, coronary artery bypass grafting, diverticulitis, gastritis, gastroesophageal reflux disease, benign prostatic hypertrophy, asbestosis, T12 compression fracture is seen in the Intensive Care Unit. He is status post cardiac arrest: 1. Nonoliguric acute kidney injury, renal function slowly improving. 2. Ventilator dependent respiratory failure, the patient is not tolerating weaning, remains sedated on ventilator. 3. Non-ST elevation myocardial infarction. 4. Leukemia? 5. Bilateral pneumonia. 6. Plan for trach and PEG. 7. Hypocalcemia. 8. Severe hypoalbuminemia. 9. Anemia. 10. Severe hypernatremia/dehydration. 11. Hypokalemia. PLAN 1. Continue D5W at 60 mL/hour. 2. Continue free water via PEG. 3. Check vitamin D and intact PTH. 4. Continue tube feeds. 5. Continue empiric antibiotics as per ID recommendations. 6. Dose all antibiotics for creatinine clearance 30-50 mL per minute. 7. Case is discussed with ICU nurses. 8. Case is discussed with ICU attending and residents at bedside at length. More than 35 minutes was spent in the care of this critically ill patient. Eneida Cobb MD
--- NOTE | 2017-01-20 19:39 | PN ---
DATE: 01/20/2017 REASON FOR CONSULTATION: Followup cardiac evaluation, status post CPR, status post cardiac arrest, unresponsive, vent dependent, rule out anoxic encephalopathy. SUBJECTIVE: The patient is an 86-year-old male. The patient is still on vent, has spontaneous eye movement and limb movement. PHYSICAL EXAMINATION: GENERAL: Does not follow simple command, has spontaneous movement, vent dependent. VITAL SIGNS: As follows: Temperature afebrile, heart rate 108, and blood pressure 138/48. HEENT: PERRLA. Extraocular muscles are intact. NECK: Supple. No carotid bruits or thyromegaly. CHEST: Clear to auscultation. HEART: S1 and S2. Regular. ABDOMEN: Soft. EXTREMITIES: Clubbing and cyanosis negative. LABORATORY DATA: Blood workup as follows: WBC 93.7, hemoglobin 9.5, hematocrit 29.1, and platelet count 338. Chemistry shows sodium 149, potassium 3.6, chloride 116, carbon dioxide 26, anion gap of 11, BUN 56, creatinine 1.3, calcium 7.1, phosphorous 3.1, magnesium 2.5, total protein 5.6, albumin 2.4, and albumin-globulin ratio of 0.8. IMPRESSION: Hypernatremia; hypokalemia; protein-calorie malnutrition, moderate to severe, but is not present on admission; anoxic encephalopathy; chronic obstructive pulmonary disease' coronary artery disease, status post coronary artery bypass graft 22 years ago, status post multiple stents in right coronary artery. Recent echocardiogram from 01/13/2017 after this event shows an ejection fraction of 45-50%, mild mitral regurgitation and mild tricuspid regurgitation. RECOMMENDATIONS: Continue free fluid through the NG tube, supplement potassium, D5W at 50 mL q. 6 hours. Continue DVT prophylaxis. Continue amiodarone p.o. Continue vent management. Possible PEG and tracheostomy in a day or 2. Case is in the Ethics Committee. Once it is approved by that Ethics Committee, the patient will get the PEG and tracheostomy. Overall, the patient is critical and prognosis is guarded. Continue Cardizem. Continue aspirin. Continue p.r.n. hydralazine. Continue vent till the patient has a definite airway for continuous maintenance of airway by the tracheostomy is done. We will give KCl elixir to supplement potassium. Francisca Almazan MD
[2017-01-21] MEDS: Insulin Reg-LOW-Coverage SC SCH ×4 (00:30→18:38)
[2017-01-21] MEDS: Levalbuterol 0.63 MG/3 ML Inhal Soln UD IH SCH ×3 (01:45→13:27)
[2017-01-21] MEDS: Propofol 10 mg/ml 1,000 MG/100 ML VIAL IV PRN (04:19)
[2017-01-21] MEDS: Pantoprazole 40 mg Susp UD PO SCH (05:40)
[2017-01-21 06:38] LABS: ALKALINE PHOSPHATASE 154 U/L (38-133); ALT/SGPT 68 U/L (7-56); AST/SGOT 93 U/L (15-59); BILIRUBIN,TOTAL 0.6 mg/dL (0.2-1.3); BLOOD UREA NITROGEN 43 mg/dL (7-21); CARBON DIOXIDE 24 mmol/L (21-33); CHLORIDE 114 mmol/L (95-110); GFR AFRICAN-AMERICAN > 60; GLUCOSE,RANDOM 199 mg/dL (70-110); POTASSIUM 4.3 mmol/L (3.6-5.0); SODIUM 142 mmol/L (132-148)
[2017-01-21 06:39] LABS: ARTERIAL BLOOD GAS HCO3 22.2 mmol/L (21-28); ARTERIAL BLOOD GAS PH 7.45 (7.35-7.45)
[2017-01-21 06:49] LABS: BASO # 0.86 K/mm3 (0.0-2.0); BASO % 0.9 % (0.0-3.0); GRAN # 78.23 (1.4-6.5); LYMPH # 2.5 (1.2-3.4); LYMPH % 2.7 % (22.0-35.0); MEAN CELL VOLUME 98.9 fl (80.0-105.0); MEAN CORPUSCULAR HEMOGLOBIN 32.9 pg (25.0-35.0); MEAN CORPUSCULAR HGB CONC 33.2 g/dl (31.0-37.0); MEAN PLATELET VOLUME 11.6 fl (7.0-11.0); MONO # 9.4 (0.1-0.6); MONO % 10.4 % (1.0-6.0); RED CELL DISTRIBUTION WIDTH 16.1 % (11.5-14.5)
[2017-01-21 06:50] LABS: ALB/GLOB RATIO 0.7 (1.1-1.8); TOTAL PROTEIN 5.4 g/dL (5.8-8.3)
--- NOTE | 2017-01-21 07:54 | CP.PCM.PN ---
Subjective - Date & Time of Evaluation Date of Evaluation: 01/21/17 Time of Evaluation: 07:00 - Subjective Subjective: Patient seen and examined. No acute events overnight. Patient is resting in bed. Patient is intubated and is unable to follow simple commands. ROS cannot be attained at this time due to altered mental status. Objective - Vital Signs/Intake and Output Vital Signs (last 24 hours): Temp Pulse Resp BP Pulse Ox 97 F L 93 H 26 H 135/64 98 01/20/17 08:00 01/21/17 06:50 01/19/17 07:08 01/21/17 06:50 01/21/17 06:50 Intake and Output: 01/21/17 01/21/17 06:59 18:59 Intake Total 100 Balance 100 - Medications Medications: Current Medications Acetaminophen (Tylenol 650mg/20.3ml Solution Ud) 650 mg PO Q6H PRN PRN Reason: fever Last Admin: 01/20/17 12:00 Dose: 650 mg Amiodarone HCl (Cordarone) 200 mg PO DAILY [facility] Last Admin: 01/20/17 10:31 Dose: 200 mg Aspirin (Aspirin Chewable) 81 mg PO DAILY [facility] Last Admin: 01/20/17 10:30 Dose: 81 mg Diltiazem HCl (Cardizem) 60 mg PO QID [facility] Last Admin: 01/20/17 21:15 Dose: 60 mg Docusate Sodium (Colace Liquid) 100 mg PO TID [facility] Last Admin: 01/20/17 14:31 Dose: 100 mg Enoxaparin Sodium (Lovenox) 40 mg SC DAILY [facility] PRN Reason: Protocol Last Admin: 01/20/17 10:33 Dose: 40 mg Hydralazine HCl (Apresoline) 10 mg IVP Q6 PRN PRN Reason: for SBP>170 & or Diastolic>100 Hydrocortisone Sodium Succinate (Solu-Cortef) 50 mg IVP Q12H [facility] Last Admin: 01/20/17 21:15 Dose: 50 mg Daptomycin 510 mg/ Sodium (Chloride) 100 mls @ 100 mls/hr IV Q24H [facility] Stop: 01/22/17 10:01 Last Admin: 01/20/17 10:41 Dose: 100 mls/hr Propofol (Diprivan) 1,000 mg in 100 mls @ 18.9 mls/hr IV .Q5H18M PRN; Protocol ; 35 MCG/KG/MIN PRN Reason: TITRATE PER MD ORDER Last Admin: 01/21/17 04:19 Dose: 20 mcg/kg/min, 10.8 mls/hr Dextrose (Dextrose 5% In Water 1000 Ml) 1,000 mls @ 60 mls/hr IV .[id number] [facility] Last Admin: 01/21/17 04:21 Dose: 60 mls/hr Doxycycline Hyclate 100 mg/ (Sodium Chloride) 100 mls @ 100 mls/hr IVPB Q12 [facility] PRN Reason: Protocol Last Admin: 01/20/17 22:02 Dose: 100 mls/hr Insulin Human Regular (Humulin R Low) 0 units SC Q6 [facility] PRN Reason: Protocol Last Admin: 01/21/17 05:40 Dose: 2 units Isosorbide Mononitrate (Imdur) 60 mg PO DAILY [facility] Last Admin: 01/20/17 10:32 Dose: 60 mg Labetalol HCl (Trandate) 10 mg IV Q3H PRN PRN Reason: Systolic Blood Pressure Levalbuterol HCl (Xopenex) 0.63 mg IH [id number] [facility] Last Admin: 01/21/17 07:43 Dose: 0.63 mg Levalbuterol HCl (Xopenex) 0.63 mg IH Q2 PRN PRN Reason: Shortness of Breath Last Admin: 01/14/17 11:25 Dose: 0.63 mg Lorazepam (Ativan) 0.5 mg PO HS PRN; Protocol PRN Reason: anxiety/insomnia Last Admin: 01/11/17 21:16 Dose: 0.5 mg Metoprolol Tartrate (Lopressor) 25 mg PO BID [facility] Last Admin: 01/20/17 17:08 Dose: 25 mg Nystatin (Nystop Topical Powder) 0 gm TOP BID [facility] Last Admin: 01/20/17 17:09 Dose: 1 u Pantoprazole Sodium (Protonix Susp) 40 mg PO 0600 [facility] Last Admin: 01/21/17 05:40 Dose: 40 mg Sennosides (Senokot Tab) 8.6 mg PO DAILY [facility] Last Admin: 01/20/17 12:01 Dose: 8.6 mg Tamsulosin HCl (Flomax) 0.4 mg PO DAILY [facility] Last Admin: 01/20/17 10:31 Dose: 0.4 mg - Labs Labs: 01/21/17 06:00 01/21/17 06:00 PT 13.7 Seconds (9.9-11.8) H 01/12/17 04:00 INR 1.27 (0.93-1.08) H 01/12/17 04:00 APTT 32.7 Seconds (23.7-30.8) H 01/12/17 04:00 - Additional Findings Additional findings: - Constitutional Appears: Non-toxic, No Acute Distress - Head Exam Head Exam: ATRAUMATIC - Eye Exam Eye Exam: Normal appearance - Neck Exam Neck Exam: Full ROM - Respiratory Exam Respiratory Exam: Clear to Ausculation Bilateral - Cardiovascular Exam Cardiovascular Exam: +S1, +S2 - GI/Abdominal Exam GI & Abdominal Exam: Soft, Normal Bowel Sounds - Extremities Exam Extremities Exam: Normal Inspection - Neurological Exam Additional comments: awake, not alert, does not follow commands Assessment and Plan - Assessment and Plan (Free Text) Assessment: This is an 86 yo M with PMH of hemolytic anemia, CAD, COPD, CABG, hx of diverticulitis, gastritis, GERD, BPPH, and Asbestosis who was transferred to the ICU s/p cardiac arrest with ROSC. Surgeyr is consulted for trach placement. Plan: - patient scheduled for Trach placement on - continue to hold plavix, total of 5 days before the procedure - further medical management as per primary Will discuss with Dr. Cooper
--- NOTE | 2017-01-21 08:59 | PN ---
SUBJECTIVE: The patient is in the critical care unit. He still intubated, but the patient's mental state is much clearer this morning. He seemed to be able to recognize faces and respond with his hand. PHYSICAL EXAMINATION: VITAL SIGNS: Pulse is 93, blood pressure 120/70, the patient's O2 saturation is 98%. LUNGS: Clear, except diffuse rhonchi heard. HEART: Normal sinus rhythm. ABDOMEN: Soft, nontender. PRESS TOOL MAKER: Clinically, the patient is under sedation. The patient is waiting for tracheostomy to be done on , 01/23/2017. CURRENT MANAGEMENT: Treatment of all acute care medical conditions. Please continue current management. We will follow up. David Pavon MD
--- NOTE | 2017-01-21 09:42 | CP.PCM.PN ---
Subjective - Date & Time of Evaluation Date of Evaluation: 01/21/17 Time of Evaluation: 09:20 - Subjective Subjective: Continues to be on the ventilator, off sedation since he is on a weaning trial, is currently awake and responds to verbal and tactile stimuli. No fevers overnight. Objective - Vital Signs/Intake and Output Vital Signs (last 24 hours): Temp Pulse Resp BP Pulse Ox 97 F L 84 26 H 130/59 L 99 01/20/17 08:00 01/20/17 22:00 01/19/17 07:08 01/20/17 21:15 01/20/17 22:00 Intake and Output: 01/20/17 01/21/17 18:59 06:59 Intake Total 2840 100 Output Total 900 Balance 1940 100 - Medications Medications: Current Medications Acetaminophen (Tylenol 650mg/20.3ml Solution Ud) 650 mg PO Q6H PRN PRN Reason: fever Last Admin: 01/20/17 12:00 Dose: 650 mg Amiodarone HCl (Cordarone) 200 mg PO DAILY [facility] Last Admin: 01/20/17 10:31 Dose: 200 mg Aspirin (Aspirin Chewable) 81 mg PO DAILY [facility] [place] Last Admin: 01/20/17 10:30 Dose: 81 mg Diltiazem HCl (Cardizem) 60 mg PO QID [facility] [place] Last Admin: 01/20/17 21:15 Dose: 60 mg Docusate Sodium (Colace Liquid) 100 mg PO TID [facility] [place] Last Admin: 01/20/17 14:31 Dose: 100 mg Enoxaparin Sodium (Lovenox) 40 mg SC DAILY [facility] PRN Reason: Protocol Last Admin: 01/20/17 10:33 Dose: 40 mg Hydralazine HCl (Apresoline) 10 mg IVP Q6 PRN PRN Reason: for SBP>170 & or Diastolic>100 Hydrocortisone Sodium Succinate (Solu-Cortef) 50 mg IVP Q12H [facility] [place] Last Admin: 01/20/17 21:15 Dose: 50 mg Daptomycin 510 mg/ Sodium (Chloride) 100 mls @ 100 mls/hr IV Q24H [facility] [place] Stop: 01/22/17 10:01 Last Admin: 01/20/17 10:41 Dose: 100 mls/hr Propofol (Diprivan) 1,000 mg in 100 mls @ 18.9 mls/hr IV .Q5H18M PRN; Protocol ; 35 MCG/KG/MIN PRN Reason: TITRATE PER MD ORDER Last Admin: 01/21/17 04:19 Dose: 20 mcg/kg/min, 10.8 mls/hr Dextrose (Dextrose 5% In Water 1000 Ml) 1,000 mls @ 60 mls/hr IV .[id number] [facility] [place] Last Admin: 01/21/17 04:21 Dose: 60 mls/hr Doxycycline Hyclate 100 mg/ (Sodium Chloride) 100 mls @ 100 mls/hr IVPB Q12 [facility] PRN Reason: Protocol Last Admin: 01/20/17 22:02 Dose: 100 mls/hr Insulin Human Regular (Humulin R Low) 0 units SC Q6 [facility] PRN Reason: Protocol Last Admin: 01/21/17 05:40 Dose: 2 units Isosorbide Mononitrate (Imdur) 60 mg PO DAILY [facility] [place] Last Admin: 01/20/17 10:32 Dose: 60 mg Labetalol HCl (Trandate) 10 mg IV Q3H PRN PRN Reason: Systolic Blood Pressure Levalbuterol HCl (Xopenex) 0.63 mg IH [id number] [facility] [place] Last Admin: 01/21/17 01:45 Dose: 0.63 mg Levalbuterol HCl (Xopenex) 0.63 mg IH Q2 PRN PRN Reason: Shortness of Breath Last Admin: 01/14/17 11:25 Dose: 0.63 mg Lorazepam (Ativan) 0.5 mg PO HS PRN; Protocol PRN Reason: anxiety/insomnia Last Admin: 01/11/17 21:16 Dose: 0.5 mg Metoprolol Tartrate (Lopressor) 25 mg PO BID [facility] [place] Last Admin: 01/20/17 17:08 Dose: 25 mg Nystatin (Nystop Topical Powder) 0 gm TOP BID [facility] [place] Last Admin: 01/20/17 17:09 Dose: 1 u Pantoprazole Sodium (Protonix Susp) 40 mg PO 0600 [facility] [place] Last Admin: 01/21/17 05:40 Dose: 40 mg Sennosides (Senokot Tab) 8.6 mg PO DAILY [facility] [place] Last Admin: 01/20/17 12:01 Dose: 8.6 mg Tamsulosin HCl (Flomax) 0.4 mg PO DAILY [facility] [place] Last Admin: 01/20/17 10:31 Dose: 0.4 mg - Labs Labs: 01/20/17 06:20 01/20/17 06:20 PT 13.7 Seconds (9.9-11.8) H 01/12/17 04:00 INR 1.27 (0.93-1.08) H 01/12/17 04:00 APTT 32.7 Seconds (23.7-30.8) H 01/12/17 04:00 - Constitutional Appears: Other (Intubated, awake) - Head Exam Head Exam: NORMAL INSPECTION - ENT Exam Additional comments: ET tube in place - Neck Exam Neck Exam: absent: Meningismus - Respiratory Exam Respiratory Exam: Rales (scattered) - Cardiovascular Exam Cardiovascular Exam: +S1, +S2 - GI/Abdominal Exam GI & Abdominal Exam: Soft. absent: Tenderness Assessment and Plan - Assessment and Plan (Free Text) Plan: Assessment ventilator-dependent respiratory failure and sepsis from healthcare-associated pneumonia (new onset) S/P cardiac arrest, etiology to be determined, but should consider myocardial infarction or cardiac arrhythmia Coagulase negative staph in blood cx, R/O port-related bacteremia right sided mastoiditis noted on the MRI of the head T12 compression fracture CAD S/P CABG COPD history of asbestosis history of Coomb's positive hemolytic anemia history of diverticulitis gastritis GERD benign prostatic hyperplasia Plan continue Daptomycin day 13 (of 10-14 days); repeat blood cx are negative; echocardiogram does not show vegetations continue Merrem (day 9) for the mastoiditis but will extend it since the patient has pneumonia - will also add Doxycycline and gave a dose of IV Vancomycin yesteday (day 2 for treatment of pneumonia today - follow up final repeat blood cx results (negative so far) and sputum cx - will target 4-7 days of antibiotics for pneumonia will continue to monitor clinically Overall prognosis is poor Patient is for possible tracheostomy and PEG tube placement
[2017-01-21] MEDS: Nystatin 100,000 Units/gm Topical Pow(15 gm) TOP SCH ×2 (10:08→18:38)
[2017-01-21] MEDS: Enoxaparin 40 mg Syringe SC SCH (10:08)
--- NOTE | 2017-01-21 10:33 | CP.PCM.PN ---
<Finn Bailey - Last Filed: 01/21/17 10:24> Subjective - Date & Time of Evaluation Date of Evaluation: 01/21/17 Time of Evaluation: 07:55 - Subjective Subjective: Heme/ onc note for Dr Walton: Pt seen and examined at bedside. No acute events overnight. Pt is ventilator on CPAP. Pt is is off sedation - opens eues but not following commands. ROS unobtainable. Objective - Vital Signs/Intake and Output Vital Signs (last 24 hours): Temp Pulse Resp BP Pulse Ox 97 F L 93 H 26 H 135/64 98 01/20/17 08:00 01/21/17 06:50 01/19/17 07:08 01/21/17 06:50 01/21/17 06:50 Intake and Output: 01/21/17 01/21/17 06:59 18:59 Intake Total 100 Balance 100 - Medications Medications: Current Medications Acetaminophen (Tylenol 650mg/20.3ml Solution Ud) 650 mg PO Q6H PRN PRN Reason: fever Last Admin: 01/20/17 12:00 Dose: 650 mg Amiodarone HCl (Cordarone) 200 mg PO DAILY [facility] Last Admin: 01/20/17 10:31 Dose: 200 mg Aspirin (Aspirin Chewable) 81 mg PO DAILY [facility] Last Admin: 01/20/17 10:30 Dose: 81 mg Diltiazem HCl (Cardizem) 60 mg PO QID [facility] Last Admin: 01/20/17 21:15 Dose: 60 mg Docusate Sodium (Colace Liquid) 100 mg PO TID [facility] Last Admin: 01/20/17 14:31 Dose: 100 mg Enoxaparin Sodium (Lovenox) 40 mg SC DAILY [facility] PRN Reason: Protocol Last Admin: 01/20/17 10:33 Dose: 40 mg Hydralazine HCl (Apresoline) 10 mg IVP Q6 PRN PRN Reason: for SBP>170 & or Diastolic>100 Hydrocortisone Sodium Succinate (Solu-Cortef) 50 mg IVP Q12H [facility] Last Admin: 01/20/17 21:15 Dose: 50 mg Daptomycin 510 mg/ Sodium (Chloride) 100 mls @ 100 mls/hr IV Q24H [facility] Stop: 01/22/17 10:01 Last Admin: 01/20/17 10:41 Dose: 100 mls/hr Propofol (Diprivan) 1,000 mg in 100 mls @ 18.9 mls/hr IV .Q5H18M PRN; Protocol ; 35 MCG/KG/MIN PRN Reason: TITRATE PER MD ORDER Last Admin: 01/21/17 04:19 Dose: 20 mcg/kg/min, 10.8 mls/hr Dextrose (Dextrose 5% In Water 1000 Ml) 1,000 mls @ 60 mls/hr IV .[id number] [facility] Last Admin: 01/21/17 04:21 Dose: 60 mls/hr Doxycycline Hyclate 100 mg/ (Sodium Chloride) 100 mls @ 100 mls/hr IVPB Q12 [facility] PRN Reason: Protocol Last Admin: 01/20/17 22:02 Dose: 100 mls/hr Insulin Human Regular (Humulin R Low) 0 units SC Q6 [facility] PRN Reason: Protocol Last Admin: 01/21/17 05:40 Dose: 2 units Isosorbide Mononitrate (Imdur) 60 mg PO DAILY [facility] Last Admin: 01/20/17 10:32 Dose: 60 mg Labetalol HCl (Trandate) 10 mg IV Q3H PRN PRN Reason: Systolic Blood Pressure Levalbuterol HCl (Xopenex) 0.63 mg IH [id number] [facility] Last Admin: 01/21/17 07:43 Dose: 0.63 mg Levalbuterol HCl (Xopenex) 0.63 mg IH Q2 PRN PRN Reason: Shortness of Breath Last Admin: 01/14/17 11:25 Dose: 0.63 mg Lorazepam (Ativan) 0.5 mg PO HS PRN; Protocol PRN Reason: anxiety/insomnia Last Admin: 01/11/17 21:16 Dose: 0.5 mg Metoprolol Tartrate (Lopressor) 25 mg PO BID [facility] Last Admin: 01/20/17 17:08 Dose: 25 mg Nystatin (Nystop Topical Powder) 0 gm TOP BID [facility] Last Admin: 01/20/17 17:09 Dose: 1 u Pantoprazole Sodium (Protonix Susp) 40 mg PO 0600 [facility] Last Admin: 01/21/17 05:40 Dose: 40 mg Sennosides (Senokot Tab) 8.6 mg PO DAILY [facility] Last Admin: 01/20/17 12:01 Dose: 8.6 mg Tamsulosin HCl (Flomax) 0.4 mg PO DAILY [facility] Last Admin: 01/20/17 10:31 Dose: 0.4 mg - Labs Labs: 01/21/17 06:00 01/21/17 06:00 PT 13.7 Seconds (9.9-11.8) H 01/12/17 04:00 INR 1.27 (0.93-1.08) H 01/12/17 04:00 APTT 32.7 Seconds (23.7-30.8) H 01/12/17 04:00 - Constitutional Appears: No Acute Distress - Head Exam Head Exam: NORMAL INSPECTION - Eye Exam Eye Exam: EOMI, PERRL - ENT Exam ENT Exam: Mucous Membranes Moist - Respiratory Exam Respiratory Exam: Clear to Ausculation Bilateral, Rhonchi. absent: Rales, Wheezes - Cardiovascular Exam Cardiovascular Exam: RRR, +S1, +S2 - GI/Abdominal Exam GI & Abdominal Exam: Soft. absent: Distended, Tenderness - Skin Skin Exam: Dry, Intact, Warm Assessment and Plan - Assessment and Plan (Free Text) Assessment: 86 M with pmh of hemolytic anemia, CAD, COPD, CABG, hx of diverticulitis, gastritis, GERD, BPPH, Asbestosis, presents to the ED with cough and L sided back pain and found to have T12 compression fracture. Pt has Félix positive, hemolytic anemia on prednisone now with a leukocytosis leukomoid rxn vs sepsis vs infection. S/p cardiac arrest. Pt is currently intubate not tolerating weaning attempts. Plan for Trach and PEG . - Plan for trach and PEG on - Ethic committee determined that patient's POA is acting with in the guidelines /stipulations of the patient's Advance Directives. - Intubated on CPAP this am; off sedation - Wean vent as tolerated - Palliative consult - working with family regarding goals of care POA vs advance directives - F/u surgery team recs - hold aspirin and plavix - wbc inc 91 - likely leukomoid reaction - flow cytometry of the blood was negative - peripheral smear showed leukomoid reaction - Ordered Jak2 mutation, BCR/abl, Will f/u - F/u ID recs - cont Dapto and Cristin - Solucortef 100mg BID - Neuro recs appreciated - MRI Brain - No acute intracranial finding, R mastoiditis - MRA- unremarkable - MRA neck - no stenosis - Cardio - Cont Amio, aspirin, plavix, metoprolol and cardizem - MRI of the thoracic spine - recent compression fracture of T12 with marrow edema anteriorly - CT abdomen showed new compression deformity of T12 and small epidural hemorrhage at this level. rec MRI - CXR- b/l calcified pleural plaques - Daily labs Dispo: plan for tach and peg Case and plan was reviewed and discussed in detail with Dr Walton <Rowdy Walton P - Last Filed: 01/24/17 23:32> Objective - Vital Signs/Intake and Output Vital Signs (last 24 hours): Temp Pulse Resp BP Pulse Ox 97.6 F 115 H 20 135/73 98 01/24/17 07:46 01/24/17 10:00 01/24/17 08:13 01/24/17 07:46 01/24/17 07:46 - Labs Labs: 01/24/17 07:30 01/24/17 07:30 PT 13.7 Seconds (9.9-11.8) H 01/12/17 04:00 INR 1.27 (0.93-1.08) H 01/12/17 04:00 APTT 32.7 Seconds (23.7-30.8) H 01/12/17 04:00 Attending/Attestation - Attestation I have personally seen and examined this patient.: Yes I have fully participated in the care of the patient.: Yes I have reviewed all pertinent clinical information, including history, physical exam and plan: Yes
[2017-01-21] MEDS: DAPTOmycin 510 MG in Sodium Chloride 0.9% 100 ML IV SCH (13:40)
--- NOTE | 2017-01-21 14:10 | CP.PCM.CON ---
<Mallory Chambers - Last Filed: 01/21/17 16:50> History of Present Illness - History of Present Illness History of Present Illness: Gastroenterology Fellow/PGY5 Consult Note 86 year old male with history of Asbestosis exposure, CAD s/p stents and CABG on Plavix, COPD, hemolytic anemia s/p infusions on prednisone presenting with left back pain. Since admission, confirmed to have T12 compression fracture and sepsis 2/2 HCAP. Patient had Vfib arrest with ROSC on 01/12 with failed multiple attempts at extubation and concern for hypoxic brain injury on EEG. Ethics committee and family have since come to decision for tracheostomy tentatively scheduled for . GI consultation for evaluation of PEG placement. Patient appears more alert today with propofol being titrated down for wean trial today. Family at bedside, awaiting to see if able to be extubated today before final consent on trach/PEG placements. Prior EGD 2010 showed hiatal hernia and Gastritis. Unable to confirm prior colonoscopy as patient is intubated. Family-family denies colorectal cancer Social- denies tobacco, alcohol, illicit drug use Surgery- cholecystectomy, cardiac stents, CABG, Port-a-cath Review of Systems - Review of Systems Review of Systems: Unable to complete 12-point review of systems due to being intubated Past Patient History - Infectious Disease Hx of Infectious Diseases: None - Tetanus Immunizations Tetanus Immunization: Unknown - Past Medical History & Family History Past Medical History?: Yes - Past Social History Smoking Status: Former Smoker - CARDIAC Hx Cardiac Disorders: Yes (CAD, ACS, CABG 3 vessels, [place]) Hx Congestive Heart Failure: Yes Hx Hypercholesterolemia: Yes Hx Hypertension: Yes - PULMONARY Hx Chronic Obstructive Pulmonary Disease (COPD): Yes - NEUROLOGICAL Hx Neurological Disorder: Yes Hx Dementia: Yes - HEENT Hx HEENT Problems: (WEARS RX GLASSES, [place]) - RENAL Hx Chronic Kidney Disease: No - ENDOCRINE/METABOLIC Hx Endocrine Disorders: No - HEMATOLOGICAL/ONCOLOGICAL Hx Blood Disorders: Yes (blood transfusion) Hx Anemia: Yes (hemolytic anemia) - INTEGUMENTARY Other/Comment: cells removed on body as per patient and , multiple skin, discolorations, nodules and dry patches of skin to arms and legs, multiple tatoos - MUSCULOSKELETAL/RHEUMATOLOGICAL Hx Arthritis: Yes - GASTROINTESTINAL Hx Gastrointestinal Disorders: Yes (GASTRITIS) Hx Diverticulitis: Yes Hx Gall Bladder Disease: Yes Hx Gastroesophageal Reflux: Yes - GENITOURINARY/GYNECOLOGICAL Hx Genitourinary Disorders: Yes (URINARY FREQUENCY) Hx Prostate Problems: Yes (BPH) Hx Urinary Tract Infection: Yes - PSYCHIATRIC Hx Anxiety: Yes Hx Emotional Abuse: No Hx Physical Abuse: No Hx Substance Use: No Other/Comment: pt becoming more agresive and disoriented at home - SURGICAL HISTORY Hx Cholecystectomy: Yes Hx Coronary Stent: Yes Hx Open Heart Surgery: Yes (3 vessel) Other/Comment: excision r hand lesion 07/2016, scalp lesion, 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, pt a hard stick - ANESTHESIA Hx Anesthesia: Yes Hx Anesthesia Reactions: No Hx Malignant Hyperthermia: No Meds Allergies/Adverse Reactions: Allergies Allergy/AdvReac Type Severity Reaction Status Date / Time No Known Allergies Allergy Verified 01/07/17 11:29 - Medications Medications: Current Medications Acetaminophen (Tylenol 650mg/20.3ml Solution Ud) 650 mg PO Q6H PRN PRN Reason: fever Last Admin: 01/20/17 12:00 Dose: 650 mg Amiodarone HCl (Cordarone) 200 mg PO DAILY [facility] Last Admin: 01/21/17 09:58 Dose: 200 mg Aspirin (Aspirin Chewable) 81 mg PO DAILY [facility] Last Admin: 01/21/17 09:58 Dose: 81 mg Diltiazem HCl (Cardizem) 60 mg PO QID [facility] Last Admin: 01/21/17 09:58 Dose: 60 mg Docusate Sodium (Colace Liquid) 100 mg PO TID [facility] Last Admin: 01/21/17 10:31 Dose: 100 mg Enoxaparin Sodium (Lovenox) 40 mg SC DAILY [facility] PRN Reason: Protocol Last Admin: 01/21/17 10:08 Dose: 40 mg Hydralazine HCl (Apresoline) 10 mg IVP Q6 PRN PRN Reason: for SBP>170 & or Diastolic>100 Hydrocortisone Sodium Succinate (Solu-Cortef) 50 mg IVP Q12H [facility] Last Admin: 01/21/17 10:08 Dose: 50 mg Daptomycin 510 mg/ Sodium (Chloride) 100 mls @ 100 mls/hr IV Q24H [facility] Stop: 01/22/17 10:01 Last Admin: 01/21/17 13:40 Dose: 100 mls/hr Propofol (Diprivan) 1,000 mg in 100 mls @ 18.9 mls/hr IV .Q5H18M PRN; Protocol ; 35 MCG/KG/MIN PRN Reason: TITRATE PER MD ORDER Last Admin: 01/21/17 04:19 Dose: 20 mcg/kg/min, 10.8 mls/hr Dextrose (Dextrose 5% In Water 1000 Ml) 1,000 mls @ 60 mls/hr IV .[id number] [facility] Last Admin: 01/21/17 04:21 Dose: 60 mls/hr Doxycycline Hyclate 100 mg/ (Sodium Chloride) 100 mls @ 100 mls/hr IVPB Q12 YESSI PRN Reason: Protocol Last Admin: 01/21/17 10:06 Dose: 100 mls/hr Insulin Human Regular (Humulin R Low) 0 units SC Q6 YESSI PRN Reason: Protocol Last Admin: 01/21/17 05:40 Dose: 2 units Isosorbide Mononitrate (Imdur) 60 mg PO DAILY [facility] Last Admin: 01/21/17 09:58 Dose: 60 mg Labetalol HCl (Trandate) 10 mg IV Q3H PRN PRN Reason: Systolic Blood Pressure Levalbuterol HCl (Xopenex) 0.63 mg IH [id number] [facility] Last Admin: 01/21/17 13:27 Dose: 0.63 mg Levalbuterol HCl (Xopenex) 0.63 mg IH Q2 PRN PRN Reason: Shortness of Breath Last Admin: 01/14/17 11:25 Dose: 0.63 mg Lorazepam (Ativan) 0.5 mg PO HS PRN; Protocol PRN Reason: anxiety/insomnia Last Admin: 01/11/17 21:16 Dose: 0.5 mg Metoprolol Tartrate (Lopressor) 25 mg PO BID [facility] Last Admin: 01/21/17 09:58 Dose: 25 mg Nystatin (Nystop Topical Powder) 0 gm TOP BID [facility] Last Admin: 01/21/17 10:08 Dose: 1 u Pantoprazole Sodium (Protonix Susp) 40 mg PO 0600 [facility] Last Admin: 01/21/17 05:40 Dose: 40 mg Sennosides (Senokot Tab) 8.6 mg PO DAILY [facility] Last Admin: 01/21/17 10:08 Dose: 8.6 mg Tamsulosin HCl (Flomax) 0.4 mg PO DAILY [facility] Last Admin: 01/21/17 10:08 Dose: 0.4 mg Physical Exam - Constitutional Appears: No Acute Distress, Other - Head Exam Head Exam: ATRAUMATIC, NORMOCEPHALIC - Eye Exam Eye Exam: PERRL. absent: Scleral icterus Pupil Exam: PERRL. absent: Miosis, Mydriatic - ENT Exam ENT Exam: Mucous Membranes Dry, Normal Oropharynx - Neck Exam Neck exam: Positive for: Normal Inspection - Respiratory Exam Respiratory Exam: Clear to Auscultation Bilateral. absent: Rales, Rhonchi, Wheezes - Cardiovascular Exam Cardiovascular Exam: RRR, +S1, +S2. absent: Gallop, Rubs - GI/Abdominal Exam GI & Abdominal Exam: Normal Bowel Sounds, Soft. absent: Distended, Firm, Guarding, Organomegaly, Rebound, Rigid, Tenderness - Extremities Exam Extremities exam: Positive for: normal inspection, pedal edema - Neurological Exam Neurological exam: Alert - Psychiatric Exam Psychiatric exam: Normal Affect, Normal Mood - Skin Skin Exam: Dry, Intact, Normal Color, Warm Results - Vital Signs Recent Vital Signs: Last Vital Signs Temp 98.9 F 01/21/17 08:00 Pulse 87 01/21/17 11:00 Resp 20 01/21/17 08:00 BP 115/54 L 01/21/17 11:00 Pulse Ox 98 01/21/17 11:00 - Labs Result Diagrams: 01/21/17 06:00 01/21/17 06:00 Labs: Laboratory Results - last 24 hr 01/20/17 01/20/17 01/20/17 07:18 11:50 13:00 WBC RBC Hgb Hct MCV MCH MCHC RDW Plt Count MPV Gran % Lymph % (Auto) [place] % (Auto) Eos % (Auto) Baso % (Auto) Gran # Lymph # [place] # Eos # Baso # pCO2 pO2 HCO3 ABG pH ABG Total CO2 ABG O2 Saturation ABG Base Excess ABG Potassium Glucose Lactate FiO2 Sodium Potassium Chloride Carbon Dioxide Anion Gap BUN Creatinine Est GFR ( Amer) Est GFR (Non-Af Amer) POC Glucose (mg/dL) 117 H 138 H Random Glucose Calcium Total Bilirubin AST ALT Alkaline Phosphatase Total Protein Albumin Globulin Albumin/Globulin Ratio 25-OH Vitamin D Total 24.5 L Procalcitonin Arterial Blood Potassium 08/01/21/17 01/21/17 23:30 05:34 06:00 WBC 91.0 H* RBC 2.83 L Hgb 9.3 L Hct 28.0 L MCV 98.9 MCH 32.9 MCHC 33.2 RDW 16.1 H Plt Count 330 MPV 11.6 H Gran % 86.0 H Lymph % (Auto) 2.7 L [place] % (Auto) 10.4 H Eos % (Auto) 0.0 L Baso % (Auto) 0.9 Gran # 78.23 H Lymph # 2.5 [place] # 9.4 H Eos # 0.0 Baso # 0.86 pCO2 pO2 HCO3 ABG pH ABG Total CO2 ABG O2 Saturation ABG Base Excess ABG Potassium Glucose Lactate FiO2 Sodium Potassium Chloride Carbon Dioxide Anion Gap BUN Creatinine Est GFR ( Amer) Est GFR (Non-Af Amer) POC Glucose (mg/dL) 166 H 217 H Random Glucose Calcium Total Bilirubin AST ALT Alkaline Phosphatase Total Protein Albumin Globulin Albumin/Globulin Ratio 25-OH Vitamin D Total Procalcitonin Arterial Blood Potassium 01/21/17 01/21/17 01/21/17 06:00 06:00 06:30 WBC RBC Hgb Hct MCV MCH MCHC RDW Plt Count MPV Gran % Lymph % (Auto) [place] % (Auto) Eos % (Auto) Baso % (Auto) Gran # Lymph # [place] # Eos # Baso # pCO2 32 L pO2 90.0 HCO3 22.2 ABG pH 7.45 ABG Total CO2 23.2 ABG O2 Saturation 100.3 H ABG Base Excess -1.0 ABG Potassium 3.9 Glucose 199 H Lactate 1.3 FiO2 50.0 Sodium 142 145.0 Potassium 4.3 Chloride 114 H 115.0 H Carbon Dioxide 24 Anion Gap 8 L BUN 43 H Creatinine 0.9 Est GFR ( Amer) > 60 Est GFR (Non-Af Amer) > 60 POC Glucose (mg/dL) Random Glucose 199 H Calcium 7.0 L Total Bilirubin 0.6 AST 93 H ALT 68 H Alkaline Phosphatase 154 H Total Protein 5.4 L Albumin 2.3 L Globulin 3.2 Albumin/Globulin Ratio 0.7 L 25-OH Vitamin D Total Procalcitonin 0.23 Arterial Blood Potassium 3.9 Assessment & Plan - Assessment and Plan (Free Text) Assessment: 86 year old male with history of Asbestosis exposure, CAD s/p stents and CABG on Plavix, COPD, hemolytic anemia s/p infusions on prednisone with chronic leukocytosis presenting with left back pain. Active treatment of ventilator dependent respiratory failure 2/2 Vfib arrest with ROSC on 01/12 with concern for hypoxic brain injury on EEG, with initial diagnosis of T12 compression fracture and sepsis 2/2 HCAP complicated by leukemoid reaction. GI consultation for evaluation of PEG placement. Prior EGD 2010 showed hiatal hernia and Gastritis. Unable to confirm prior colonoscopy as patient is intubated. 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) >Ultrasound-hepatic steatosis >discussion held with family at bedside >if able to extubate, will evaluate patient mentation and swallowing ability to decide on PEG indication >if extubation is unsuccessful, family agrees to proceed with PEG placement, risks vs benefits of procedure explained >will follow clinical course <Nestor Dos Santos - Last Filed: 01/21/17 17:01> Meds - Medications Medications: Current Medications Acetaminophen (Tylenol 650mg/20.3ml Solution Ud) 650 mg PO Q6H PRN PRN Reason: fever Last Admin: 01/20/17 12:00 Dose: 650 mg Amiodarone HCl (Cordarone) 200 mg PO DAILY [facility] Last Admin: 01/21/17 09:58 Dose: 200 mg Aspirin (Aspirin Chewable) 81 mg PO DAILY [facility] Last Admin: 01/21/17 09:58 Dose: 81 mg Diltiazem HCl (Cardizem) 60 mg PO QID [facility] Last Admin: 01/21/17 09:58 Dose: 60 mg Docusate Sodium (Colace Liquid) 100 mg PO TID [facility] Last Admin: 01/21/17 10:31 Dose: 100 mg Enoxaparin Sodium (Lovenox) 40 mg SC DAILY [facility] PRN Reason: Protocol Last Admin: 01/21/17 10:08 Dose: 40 mg Hydralazine HCl (Apresoline) 10 mg IVP Q6 PRN PRN Reason: for SBP>170 & or Diastolic>100 Hydrocortisone Sodium Succinate (Solu-Cortef) 50 mg IVP Q12H [facility] Last Admin: 01/21/17 10:08 Dose: 50 mg Daptomycin 510 mg/ Sodium (Chloride) 100 mls @ 100 mls/hr IV Q24H [facility] Stop: 01/22/17 10:01 Last Admin: 01/21/17 13:40 Dose: 100 mls/hr Propofol (Diprivan) 1,000 mg in 100 mls @ 18.9 mls/hr IV .Q5H18M PRN; Protocol ; 35 MCG/KG/MIN PRN Reason: TITRATE PER MD ORDER Last Admin: 01/21/17 04:19 Dose: 20 mcg/kg/min, 10.8 mls/hr Dextrose (Dextrose 5% In Water 1000 Ml) 1,000 mls @ 60 mls/hr IV .[id number] [facility] Last Admin: 01/21/17 04:21 Dose: 60 mls/hr Doxycycline Hyclate 100 mg/ (Sodium Chloride) 100 mls @ 100 mls/hr IVPB Q12 YESSI PRN Reason: Protocol Last Admin: 01/21/17 10:06 Dose: 100 mls/hr Insulin Human Regular (Humulin R Low) 0 units SC Q6 YESSI PRN Reason: Protocol Last Admin: 01/21/17 05:40 Dose: 2 units Isosorbide Mononitrate (Imdur) 60 mg PO DAILY [facility] Last Admin: 01/21/17 09:58 Dose: 60 mg Labetalol HCl (Trandate) 10 mg IV Q3H PRN PRN Reason: Systolic Blood Pressure Levalbuterol HCl (Xopenex) 0.63 mg IH [id number] [facility] Last Admin: 01/21/17 13:27 Dose: 0.63 mg Levalbuterol HCl (Xopenex) 0.63 mg IH Q2 PRN PRN Reason: Shortness of Breath Last Admin: 01/14/17 11:25 Dose: 0.63 mg Lorazepam (Ativan) 0.5 mg PO HS PRN; Protocol PRN Reason: anxiety/insomnia Last Admin: 01/11/17 21:16 Dose: 0.5 mg Metoprolol Tartrate (Lopressor) 25 mg PO BID [facility] Last Admin: 01/21/17 09:58 Dose: 25 mg Nystatin (Nystop Topical Powder) 0 gm TOP BID [facility] Last Admin: 01/21/17 10:08 Dose: 1 u Pantoprazole Sodium (Protonix Susp) 40 mg PO 0600 [facility] Last Admin: 01/21/17 05:40 Dose: 40 mg Sennosides (Senokot Tab) 8.6 mg PO DAILY [facility] Last Admin: 01/21/17 10:08 Dose: 8.6 mg Tamsulosin HCl (Flomax) 0.4 mg PO DAILY [facility] Last Admin: 01/21/17 10:08 Dose: 0.4 mg Results - Vital Signs Recent Vital Signs: Last Vital Signs Temp 97.8 F 01/21/17 16:00 Pulse 96 H 01/21/17 16:00 Resp 23 01/21/17 16:00 BP 130/63 01/21/17 16:00 Pulse Ox 97 01/21/17 16:00 - Labs Result Diagrams: 01/21/17 06:00 01/21/17 06:00 Labs: Laboratory Results - last 24 hr 01/20/17 01/20/17 01/20/17 07:18 11:50 13:00 WBC RBC Hgb Hct MCV MCH MCHC RDW Plt Count MPV Gran % Lymph % (Auto) [place] % (Auto) Eos % (Auto) Baso % (Auto) Gran # Lymph # [place] # Eos # Baso # pCO2 pO2 HCO3 ABG pH ABG Total CO2 ABG O2 Saturation ABG Base Excess ABG Potassium Glucose Lactate FiO2 Sodium Potassium Chloride Carbon Dioxide Anion Gap BUN Creatinine Est GFR ( Amer) Est GFR (Non-Af Amer) POC Glucose (mg/dL) 117 H 138 H Random Glucose Calcium Total Bilirubin AST ALT Alkaline Phosphatase Total Protein Albumin Globulin Albumin/Globulin Ratio Procalcitonin PTH Intact Whole Molec 146 H Arterial Blood Potassium 01/20/17 01/21/17 01/21/17 23:30 05:34 06:00 WBC 91.0 H* RBC 2.83 L Hgb 9.3 L Hct 28.0 L MCV 98.9 MCH 32.9 MCHC 33.2 RDW 16.1 H Plt Count 330 MPV 11.6 H Gran % 86.0 H Lymph % (Auto) 2.7 L [place] % (Auto) 10.4 H Eos % (Auto) 0.0 L Baso % (Auto) 0.9 Gran # 78.23 H Lymph # 2.5 [place] # 9.4 H Eos # 0.0 Baso # 0.86 pCO2 pO2 HCO3 ABG pH ABG Total CO2 ABG O2 Saturation ABG Base Excess ABG Potassium Glucose Lactate FiO2 Sodium Potassium Chloride Carbon Dioxide Anion Gap BUN Creatinine Est GFR ( Amer) Est GFR (Non-Af Amer) POC Glucose (mg/dL) 166 H 217 H Random Glucose Calcium Total Bilirubin AST ALT Alkaline Phosphatase Total Protein Albumin Globulin Albumin/Globulin Ratio Procalcitonin PTH Intact Whole [place]olec Arterial Blood Potassium 01/21/17 01/21/17 01/21/17 06:00 06:00 06:30 WBC RBC Hgb Hct MCV MCH MCHC RDW Plt Count MPV Gran % Lymph % (Auto) [place] % (Auto) Eos % (Auto) Baso % (Auto) Gran # Lymph # [place] # Eos # Baso # pCO2 32 L pO2 90.0 HCO3 22.2 ABG pH 7.45 ABG Total CO2 23.2 ABG O2 Saturation 100.3 H ABG Base Excess -1.0 ABG Potassium 3.9 Glucose 199 H Lactate 1.3 FiO2 50.0 Sodium 142 145.0 Potassium 4.3 Chloride 114 H 115.0 H Carbon Dioxide 24 Anion Gap 8 L BUN 43 H Creatinine 0.9 Est GFR ( Amer) > 60 Est GFR (Non-Af Amer) > 60 POC Glucose (mg/dL) Random Glucose 199 H Calcium 7.0 L Total Bilirubin 0.6 AST 93 H ALT 68 H Alkaline Phosphatase 154 H Total Protein 5.4 L Albumin 2.3 L Globulin 3.2 Albumin/Globulin Ratio 0.7 L Procalcitonin 0.23 PTH Intact Whole [place]c Arterial Blood Potassium 3.9 Attending/Attestation - Attestation I have personally seen and examined this patient.: Yes I have fully participated in the care of the patient.: Yes I have reviewed all pertinent clinical information: Yes Notes (Text): 01/21/17 16:58 86 year old male with h/o Asbestosis exposure, CAD s/p CABG/Stents, COPD, Hemolytic anemia in ICU after cardiac arrest, now recovering, we are consutled for PEG. 1. Dysphagia Plan: -currently patient unable to eat due to cardiac arrest / possible anoxic brain injury -he remains vented today -he is more alert and following commands -he has an OGT in place -ICU considering extubation -would recommend speech/swallow eval if he is extubated succesfully -otherwise, if he needs trach, then we can perform PEG as early as
--- NOTE | 2017-01-21 15:57 | PN ---
DATE: 01/21/2017 REASON FOR CONSULTATION: Followup cardiac evaluation, status post CPR, status post cardiac arrest, unresponsive, vent dependent, and rule out anoxic encephalopathy. SUBJECTIVE: The patient is still on the vent. Spontaneous eye movement and extremity movement. PHYSICAL EXAMINATION: GENERAL: On vent, not in apparent distress. VITAL SIGNS: Temperature afebrile, heart rate 93, and blood pressure 135/64. HEENT: PERRLA. Extraocular muscles intact. NECK: Supple. No carotid bruit or thyromegaly. CHEST: Clear to auscultation. HEART: S1 and S2 regular. ABDOMEN: Soft. EXTREMITIES: Clubbing and cyanosis negative. LABORATORY DATA: Blood workup as follows; WBC 91.0, hemoglobin , hematocrit 28.0, and platelet count 330. Chemistry shows sodium 140, potassium 4.3, chloride 101, carbon dioxide 24, anion gap 8, BUN 43, creatinine 0.4, total protein 5.4, albumin 2.7, and globulin ratio 0.7. 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 Recent echo after the event 01/13/2017 shows ejection fraction of 45% to 50%, mild mitral regurgitation, mild tricuspid regurgitation, and history of chronic obstructive pulmonary disease in the past. RECOMMENDATIONS: Continue NG feeding, continue free water to prevent hypernatremia, give nutrition support, continue vent management, and possible PEG and trach day after tomorrow. We will follow with you. Thank you Dr. Pavon for providing us the opportunity in taking care of Chidi Maddox. Francisca Almazan MD
--- NOTE | 2017-01-21 16:30 | RAD ---
HISTORY: fu COMPARISON: 01/20/2017 FINDINGS: LUNGS: The endotracheal and nasogastric tube are in satisfactory position. There is improved vascular congestion PLEURA: No significant pleural effusion identified, no pneumothorax apparent. CARDIOVASCULAR: Mild cardiomegaly OSSEOUS STRUCTURES: No significant abnormalities. VISUALIZED UPPER ABDOMEN: Normal. OTHER FINDINGS: None. IMPRESSION: The endotracheal and nasogastric tube are in satisfactory position. There is improved vascular congestion
[2017-01-21] MEDS ORDERED: Metoprolol 1 mg/ml Inj IVP ONE (17:06)
--- NOTE | 2017-01-21 17:36 | CP.PCM.PN ---
<MAXWELL MUÑOZ - Last Filed: 01/21/17 17:28> Subjective - Date & Time of Evaluation Date of Evaluation: 01/21/17 Time of Evaluation: 07:30 - Subjective Subjective: Maxwell Muñoz DO PGY1 - ICU Progress Note Patient seen and examined at bedside. Nurses report no acute events overnight. This morning, patient was intubated, sedated on propofol. Patient tolerating weaning trial today, on pressure support for 2 hours. Patient was extubated, and tolerated it well. He remains nonverbal, and does not obey simple commands. Objective - Vital Signs/Intake and Output Vital Signs (last 24 hours): Temp Pulse Resp BP Pulse Ox 97.8 F 96 H 23 130/63 97 01/21/17 16:00 01/21/17 16:00 01/21/17 16:00 01/21/17 16:00 01/21/17 16:00 Intake and Output: 01/21/17 01/21/17 06:59 18:59 Intake Total 100 Balance 100 - Medications Medications: Current Medications Acetaminophen (Tylenol 650mg/20.3ml Solution Ud) 650 mg PO Q6H PRN PRN Reason: fever Last Admin: 01/20/17 12:00 Dose: 650 mg Amiodarone HCl (Cordarone) 200 mg PO DAILY [facility] Last Admin: 01/21/17 09:58 Dose: 200 mg Aspirin (Aspirin Chewable) 81 mg PO DAILY [facility] Last Admin: 01/21/17 09:58 Dose: 81 mg Diltiazem HCl (Cardizem) 60 mg PO QID [facility] Last Admin: 01/21/17 09:58 Dose: 60 mg Diltiazem HCl (Cardizem) 5 mg IVP Q3 PRN PRN Reason: HR >120 or SBP > 160 Docusate Sodium (Colace Liquid) 100 mg PO TID [facility] Last Admin: 01/21/17 10:31 Dose: 100 mg Enoxaparin Sodium (Lovenox) 40 mg SC DAILY [facility] PRN Reason: Protocol Last Admin: 01/21/17 10:08 Dose: 40 mg Hydralazine HCl (Apresoline) 10 mg IVP Q6 PRN PRN Reason: for SBP>170 & or Diastolic>100 Hydrocortisone Sodium Succinate (Solu-Cortef) 50 mg IVP Q12H [facility] Last Admin: 01/21/17 10:08 Dose: 50 mg Daptomycin 510 mg/ Sodium (Chloride) 100 mls @ 100 mls/hr IV Q24H [facility] Stop: 01/22/17 10:01 Last Admin: 01/21/17 13:40 Dose: 100 mls/hr Dextrose (Dextrose 5% In Water 1000 Ml) 1,000 mls @ 60 mls/hr IV .[id number] [facility] Last Admin: 01/21/17 04:21 Dose: 60 mls/hr Doxycycline Hyclate 100 mg/ (Sodium Chloride) 100 mls @ 100 mls/hr IVPB Q12 [facility] PRN Reason: Protocol Last Admin: 01/21/17 10:06 Dose: 100 mls/hr Insulin Human Regular (Humulin R Low) 0 units SC Q6 [facility] PRN Reason: Protocol Last Admin: 01/21/17 05:40 Dose: 2 units Isosorbide Mononitrate (Imdur) 60 mg PO DAILY [facility] Last Admin: 01/21/17 09:58 Dose: 60 mg Labetalol HCl (Trandate) 10 mg IV Q3H PRN PRN Reason: Systolic Blood Pressure Levalbuterol HCl (Xopenex) 0.63 mg IH [id number] [facility] Last Admin: 01/21/17 13:27 Dose: 0.63 mg Levalbuterol HCl (Xopenex) 0.63 mg IH Q2 PRN PRN Reason: Shortness of Breath Last Admin: 01/14/17 11:25 Dose: 0.63 mg Lorazepam (Ativan) 0.5 mg PO HS PRN; Protocol PRN Reason: anxiety/insomnia Last Admin: 01/11/17 21:16 Dose: 0.5 mg Metoprolol Tartrate (Lopressor) 25 mg PO BID [facility] Last Admin: 01/21/17 09:58 Dose: 25 mg Metoprolol Tartrate (Lopressor) 10 mg IVP BID [facility] Nystatin (Nystop Topical Powder) 0 gm TOP BID [facility] Last Admin: 01/21/17 10:08 Dose: 1 u Pantoprazole Sodium (Protonix Susp) 40 mg PO 0600 [facility] Last Admin: 01/21/17 05:40 Dose: 40 mg Sennosides (Senokot Tab) 8.6 mg PO DAILY [facility] Last Admin: 01/21/17 10:08 Dose: 8.6 mg Tamsulosin HCl (Flomax) 0.4 mg PO DAILY [facility] Last Admin: 01/21/17 10:08 Dose: 0.4 mg - Labs Labs: 01/21/17 06:00 01/21/17 06:00 PT 13.7 Seconds (9.9-11.8) H 01/12/17 04:00 INR 1.27 (0.93-1.08) H 01/12/17 04:00 APTT 32.7 Seconds (23.7-30.8) H 01/12/17 04:00 - Constitutional Appears: Non-toxic, No Acute Distress, Confused, Chronically Ill - Head Exam Head Exam: ATRAUMATIC, NORMOCEPHALIC - Eye Exam Eye Exam: EOMI, PERRL - ENT Exam ENT Exam: Mucous Membranes Moist - Neck Exam Neck Exam: absent: Lymphadenopathy, Thyromegaly - Respiratory Exam Respiratory Exam: Clear to Ausculation Bilateral. absent: Rales, Rhonchi, Wheezes - Cardiovascular Exam Cardiovascular Exam: RRR, +S1, +S2 - GI/Abdominal Exam GI & Abdominal Exam: Soft. absent: Firm, Guarding, Rigid, Tenderness - Extremities Exam Extremities Exam: absent: Calf Tenderness, Pedal Edema - Neurological Exam Neurological Exam: Alert, Awake Additional comments: Nonverbal. Moving all extremities spontaneously and symmetrically, but not obeying commands. - Psychiatric Exam Psychiatric exam: Flat Affect - Skin Skin Exam: Dry, Intact Assessment and Plan - Assessment and Plan (Free Text) Assessment: 86 M admitted to the ICU for AMS and ventilatory dependent respiratory failure s /p cardiac arrest with ROSC. Now extubated. Palliative Care consulted for further discussions with family regarding goals of care. Ethics committee meeting yesterday determined POA acting within guidelines/stipulations of the patient's Advance Directives. Plan: Neuro: - Mental status improved slightly off sedation, but continues to have difficulty following simple commands. - Extubated today, remains nonverbal, not obeying simple commands - Maintain normothermia - EEG showed diffuse slowing consistent with hypoxic injury. - MRI brain shows cortical ribboning in the parietal region consistent with cortical ischemia. - Head CT showed no acute changes - Neuro (Korya) consulted, all recs appreciated Cardio: - s/p cardiac arrest, ROSC - On amiodarone, Cardizem QID, hydralazine PRN - On ASA, plavix, imdur, metoprolol - maintain MAP > 65 - Stress dose steroids BID, will taper down - Therapeutic Lovenox - Cardio consulted, all recs appreciated Pulm: - s/p extubation today. Will not require trach if he can continue to maintain and protect his airway - Repeat ABG this AM showed borderline respiratory alkalosis, but good oxygenation (pO2 90) on 50% FiO2 - Repeat CXR shows more improvement in vascular congestion and various opacities - Conservative O2 management, maintain SaO2 > 92% and paO2 > 60 GI: - Had OG tube, was receiving tube feeds. Will remain NPO until swallow eval can be completed tomorrow. - Protonix IVP for GI ppx - GI consulted for PEG placement, will have swallow eval tomorrow, and may not require PEG if passes swallow eval Renal: - Araiza in place. Good urine output. - Strict I's & O's - Monitor and replete electrolytes as needed - Nephro (Reza) on consult, all recs appreciated - Maintain euvolemia Endo: - Maintain euglycemia - Accucheck Q6 with SSI - Maintain euglycemia Heme: - H/H stable - Persistent Leukocytosis, interpreted as leukemoid reaction per Hem/Onc - Hem/Onc on consult, all recs appreciated - no signs of active bleeding, continue to monitor ID: - Persistent leukocytosis, afebrile - Sputum culture positive for Stenotrophomonas maltophilia, likely colonization rather than infection. ID on consult, all recs appreciated. - Cont daptomycin, Merrem, per ID - ID (Tita) consulted, all recs appreciated - Maintain normothermia Ppx: Protonix for GI, Lovenox covers for DVT Patient seen, reviewed, discussed with attending <Kayla MORALES,Ernie H - Last Filed: 01/22/17 08:29> Objective - Vital Signs/Intake and Output Vital Signs (last 24 hours): Temp Pulse Resp BP Pulse Ox 98 F 101 H 24 146/66 96 01/22/17 08:00 01/22/17 08:00 01/22/17 08:00 01/22/17 08:00 01/22/17 08:00 - Medications Medications: Current Medications Acetaminophen (Tylenol 650mg/20.3ml Solution Ud) 650 mg PO Q6H PRN PRN Reason: fever Last Admin: 01/20/17 12:00 Dose: 650 mg Amiodarone HCl (Cordarone) 200 mg PO DAILY [facility] Last Admin: 01/21/17 09:58 Dose: 200 mg Aspirin (Aspirin Chewable) 81 mg PO DAILY [facility] Last Admin: 01/21/17 09:58 Dose: 81 mg Diltiazem HCl (Cardizem) 60 mg PO QID [facility] Last Admin: 01/21/17 17:37 Dose: Not Given Diltiazem HCl (Cardizem) 5 mg IVP Q3 PRN PRN Reason: HR >120 or SBP > 160 Docusate Sodium (Colace Liquid) 100 mg PO TID [facility] Last Admin: 01/21/17 18:38 Dose: Not Given Enoxaparin Sodium (Lovenox) 40 mg SC DAILY [facility] PRN Reason: Protocol Last Admin: 01/21/17 10:08 Dose: 40 mg Hydralazine HCl (Apresoline) 10 mg IVP Q6 PRN PRN Reason: for SBP>170 & or Diastolic>100 Hydrocortisone Sodium Succinate (Solu-Cortef) 50 mg IVP Q12H [facility] Last Admin: 01/21/17 21:34 Dose: 50 mg Daptomycin 510 mg/ Sodium (Chloride) 100 mls @ 100 mls/hr IV Q24H [facility] Stop: 01/22/17 10:01 Last Admin: 01/21/17 13:40 Dose: 100 mls/hr Dextrose (Dextrose 5% In Water 1000 Ml) 1,000 mls @ 60 mls/hr IV .[id number] [facility] Last Admin: 01/21/17 17:49 Dose: 60 mls/hr Doxycycline Hyclate 100 mg/ (Sodium Chloride) 100 mls @ 100 mls/hr IVPB Q12 [facility] PRN Reason: Protocol Last Admin: 01/21/17 21:36 Dose: 100 mls/hr Pantoprazole Sodium (Protonix 40mg Ivpb) 40 mg in 100 mls @ 200 mls/hr IVPB 0600 [facility] Last Admin: 01/22/17 06:32 Dose: 200 mls/hr Insulin Human Regular (Humulin R Low) 0 units SC Q6 [facility] PRN Reason: Protocol Last Admin: 01/22/17 06:47 Dose: Not Given Isosorbide Mononitrate (Imdur) 60 mg PO DAILY [facility] Last Admin: 01/21/17 09:58 Dose: 60 mg Labetalol HCl (Trandate) 10 mg IV Q3H PRN PRN Reason: Systolic Blood Pressure Levalbuterol HCl (Xopenex) 0.63 mg IH [id number] [facility] Last Admin: 01/22/17 07:32 Dose: 0.63 mg Levalbuterol HCl (Xopenex) 0.63 mg IH Q2 PRN PRN Reason: Shortness of Breath Last Admin: 01/14/17 11:25 Dose: 0.63 mg Metoprolol Tartrate (Lopressor) 25 mg PO BID [facility] Last Admin: 01/21/17 09:58 Dose: 25 mg Metoprolol Tartrate (Lopressor) 10 mg IVP BID [facility] Last Admin: 01/21/17 17:48 Dose: 10 mg Nystatin (Nystop Topical Powder) 0 gm TOP BID [facility] Last Admin: 01/21/17 18:38 Dose: 1 u Sennosides (Senokot Tab) 8.6 mg PO DAILY [facility] Last Admin: 01/21/17 10:08 Dose: 8.6 mg Tamsulosin HCl (Flomax) 0.4 mg PO DAILY [facility] Last Admin: 01/21/17 10:08 Dose: 0.4 mg - Labs Labs: 01/22/17 05:55 01/22/17 05:55 PT 13.7 Seconds (9.9-11.8) H 01/12/17 04:00 INR 1.27 (0.93-1.08) H 01/12/17 04:00 APTT 32.7 Seconds (23.7-30.8) H 01/12/17 04:00 Attending/Attestation - Attestation I have personally seen and examined this patient.: Yes I have fully participated in the care of the patient.: Yes I have reviewed all pertinent clinical information, including history, physical exam and plan: Yes Notes (Text): 01/22/17 08:28 86 y/o M w/ Prolonged Vent acute respiratory failure Passed SBT today and slight improvement in mental status. Extubated to HFNC and tolerating. Continue treatment course for PNA per ID Likely will need PEg placement btu will determine after swallow eval daily. family at bedside aware of the status. CC time 55 min
[2017-01-21] MEDS: Metoprolol 1 mg/ml Inj IVP SCH (17:48)
--- NOTE | 2017-01-21 20:27 | PN ---
SUBJECTIVE: The patient is currently seen with high-flow oxygen in place. He has been extubated. He appears to be comfortable. Family is in the room. His BUN is 43 today with a creatinine of 0.9, both improved. MEDICATIONS: Medication list reviewed. The patient is currently on Apresoline p.r.n., aspirin, Ativan, Cardizem, Colace, amiodarone, daptomycin, D5W 60 mL an hour, doxycycline, Flomax, insulin, Imdur, Lopressor, Lovenox, Nystatin, Protonix, Senokot, Solu-Cortef, Trandate p.r.n., Tylenol p.r.n., Xopenex p.r.n. PHYSICAL EXAMINATION: INTAKE/OUTPUT: Intake 2940, output 900. Weight today is 197.8 pounds, up 1.8 pounds from yesterday with IV fluid hydration. VITAL SIGNS: Blood pressure 115/54, temperature is 98.9. Pulse is 87 with a respiratory rate of 20. HEENT: High-flow oxygen in place. Eyes are open. Conjunctivae is pale. Sclerae nonicteric. NECK: Supple. No neck vein distention. CHEST: Clear to auscultation and percussion with scattered rhonchi. No rales or wheezing. CARDIOVASCULAR: Shows a regular rate and rhythm without murmurs, rubs, or gallops. ABDOMEN: Soft. Bowel sounds normal. No rebound, no guarding, no masses. EXTREMITIES: Show no lower extremity edema. Legs are raised in bed. No cyanosis or clubbing. LABORATORY DATA AND IMAGING: Microbiology, sputum is positive for Stenotrophomonas, blood cultures are negative at 48 hours. Urine cultures are negative. CBC, white blood cell count of 91,000, hemoglobin 9.3 with a platelet count of 330,000. Blood gas today, pH 7.45, PCO2 of 32, and a pO2 of 90. Chemistries, sodium 142, potassium 4.3, chloride 114, with a CO2 of 24, BUN is 43 with a creatinine of 0.9, glucose is 199. Calcium is 7.0, with albumin of 2.3, correcting to normal. Phosphorus level was 3.1. Magnesium level was 2.5. ASSESSMENT: Acute renal failure in a patient with a known past history of chronic kidney disease. His baseline creatinine is less than 1. This is in the setting of pneumonia. On IV antibiotic therapy. Status post acute respiratory failure. The patient was on a ventilator. Extubated recently, currently on high-flow oxygen and appears to be stable. History of chronic obstructive pulmonary disease, currently stable on present inhalation therapy. History of ASHD, status post CABG, currently stable, possible NSTEMI. History of anemia with normal platelet count and an elevated white blood cell count of 91,000, on antibiotic therapy. History of hypoalbuminemia with an albumin of 2.3. The patient will need to start nutrition soon. Mild elevation of liver enzymes, improving. History of T12 compression fracture, currently stable. Status post cardiac arrest, appears to be stable. History of benign prostatic hypertrophy, currently stable. History of asbestosis, currently stable. History of GERD, currently stable on proton pump inhibition therapy. Status post hyponatremia secondary to volume depletion, this has corrected with hypotonic IV fluid administration. PLAN: 1. Continue to monitor weights accurately with a bed scale. 2. Continue to match I's and O's with perhaps keeping the patient slightly ahead with IV fluid hydration. 3. Start nutrition in light of his low albumin levels. 4. Continue antibiotic therapy in light of his severe leukocytosis. 5. Continue to monitor renal parameters closely as the patient's acute renal failure appears to be resolving nicely. Case discussed with ICU staff and ICU house staff in detail. Greater than 35 minutes spent in the care of this patient. Urbano Ball MD
[2017-01-22] MEDS: Insulin Reg-LOW-Coverage SC SCH ×4 (01:26→18:24)
[2017-01-22] MEDS: Levalbuterol 0.63 MG/3 ML Inhal Soln UD IH SCH ×4 (02:06→20:52)
[2017-01-22] MEDS: Pantoprazole 40mg/100ml IVPB 40 MG/100 ML BAG IVPB SCH (06:32)
[2017-01-22 06:39] LABS: ALB/GLOB RATIO 0.7 (1.1-1.8); ALKALINE PHOSPHATASE 129 U/L (38-133); ALT/SGPT 64 U/L (7-56); AST/SGOT 79 U/L (15-59); BLOOD UREA NITROGEN 37 mg/dL (7-21); CALCIUM 7.5 mg/dL (8.4-10.5); CARBON DIOXIDE 25 mmol/L (21-33); CHLORIDE 112 mmol/L (98-107); GFR AFRICAN-AMERICAN > 60; GLUCOSE,RANDOM 117 mg/dL (70-110); POTASSIUM 4.1 mmol/L (3.6-5.0); SODIUM 142 mmol/L (132-148); TOTAL PROTEIN 5.8 g/dL (5.8-8.3)
[2017-01-22 06:41] LABS: LYMPH # 2.7 (1.2-3.4); MEAN CORPUSCULAR HEMOGLOBIN 33.4 pg (25.0-35.0); MEAN CORPUSCULAR HGB CONC 34.1 g/dl (31.0-37.0); MEAN PLATELET VOLUME 11.7 fl (7.0-11.0); MONO # 10.8 (0.1-0.6); MONO % 10.3 % (1.0-6.0); PLATELET COUNT 392 10^3/uL (120.0-450.0)
[2017-01-22 06:46] LABS: WHITE BLOOD COUNT 104.6 10^3/ul (4.5-11.0)
--- NOTE | 2017-01-22 07:35 | CP.PCM.PN ---
Subjective - Date & Time of Evaluation Date of Evaluation: 01/22/17 Time of Evaluation: 07:30 - Subjective Subjective: Surgery Progress Note for Dr. Cooper Patient seen and examined at bedside in ICU. S/p extubation yesterday, appears to be tolerating well; satting well on high flow nasal canula, protecting airway , following most simple commands. No acute events overnight reported. Remains primarily non-verbal, but answers some yes/no questions. Not displaying acute/ overt distress. Objective - Vital Signs/Intake and Output Vital Signs (last 24 hours): Temp Pulse Resp BP Pulse Ox 98.5 F 102 H 22 149/68 98 01/22/17 04:00 01/22/17 07:00 01/22/17 07:00 01/22/17 07:00 01/22/17 07:00 - Medications Medications: Current Medications Acetaminophen (Tylenol 650mg/20.3ml Solution Ud) 650 mg PO Q6H PRN PRN Reason: fever Last Admin: 01/20/17 12:00 Dose: 650 mg Amiodarone HCl (Cordarone) 200 mg PO DAILY [facility] Last Admin: 01/21/17 09:58 Dose: 200 mg Aspirin (Aspirin Chewable) 81 mg PO DAILY [facility] Last Admin: 01/21/17 09:58 Dose: 81 mg Diltiazem HCl (Cardizem) 60 mg PO QID [facility] Last Admin: 01/21/17 17:37 Dose: Not Given Diltiazem HCl (Cardizem) 5 mg IVP Q3 PRN PRN Reason: HR >120 or SBP > 160 Docusate Sodium (Colace Liquid) 100 mg PO TID [facility] Last Admin: 01/21/17 18:38 Dose: Not Given Enoxaparin Sodium (Lovenox) 40 mg SC DAILY [facility] PRN Reason: Protocol Last Admin: 01/21/17 10:08 Dose: 40 mg Hydralazine HCl (Apresoline) 10 mg IVP Q6 PRN PRN Reason: for SBP>170 & or Diastolic>100 Hydrocortisone Sodium Succinate (Solu-Cortef) 50 mg IVP Q12H [facility] Last Admin: 01/21/17 21:34 Dose: 50 mg Daptomycin 510 mg/ Sodium (Chloride) 100 mls @ 100 mls/hr IV Q24H [facility] Stop: 01/22/17 10:01 Last Admin: 01/21/17 13:40 Dose: 100 mls/hr Dextrose (Dextrose 5% In Water 1000 Ml) 1,000 mls @ 60 mls/hr IV .[id number] [facility] Last Admin: 01/21/17 17:49 Dose: 60 mls/hr Doxycycline Hyclate 100 mg/ (Sodium Chloride) 100 mls @ 100 mls/hr IVPB Q12 [facility] PRN Reason: Protocol Last Admin: 01/21/17 21:36 Dose: 100 mls/hr Pantoprazole Sodium (Protonix 40mg Ivpb) 40 mg in 100 mls @ 200 mls/hr IVPB 0600 [facility] Last Admin: 01/22/17 06:32 Dose: 200 mls/hr Insulin Human Regular (Humulin R Low) 0 units SC Q6 [facility] PRN Reason: Protocol Last Admin: 01/22/17 06:47 Dose: Not Given Isosorbide Mononitrate (Imdur) 60 mg PO DAILY [facility] Last Admin: 01/21/17 09:58 Dose: 60 mg Labetalol HCl (Trandate) 10 mg IV Q3H PRN PRN Reason: Systolic Blood Pressure Levalbuterol HCl (Xopenex) 0.63 mg IH [id number] [facility] Last Admin: 01/22/17 02:06 Dose: 0.63 mg Levalbuterol HCl (Xopenex) 0.63 mg IH Q2 PRN PRN Reason: Shortness of Breath Last Admin: 01/14/17 11:25 Dose: 0.63 mg Metoprolol Tartrate (Lopressor) 25 mg PO BID [facility] Last Admin: 01/21/17 09:58 Dose: 25 mg Metoprolol Tartrate (Lopressor) 10 mg IVP BID [facility] Last Admin: 01/21/17 17:48 Dose: 10 mg Nystatin (Nystop Topical Powder) 0 gm TOP BID [facility] Last Admin: 01/21/17 18:38 Dose: 1 u Sennosides (Senokot Tab) 8.6 mg PO DAILY [facility] Last Admin: 01/21/17 10:08 Dose: 8.6 mg Tamsulosin HCl (Flomax) 0.4 mg PO DAILY [facility] Last Admin: 01/21/17 10:08 Dose: 0.4 mg - Labs Labs: 01/22/17 05:55 01/22/17 05:55 PT 13.7 Seconds (9.9-11.8) H 01/12/17 04:00 INR 1.27 (0.93-1.08) H 01/12/17 04:00 APTT 32.7 Seconds (23.7-30.8) H 01/12/17 04:00 - Additional Findings Additional findings: - Constitutional Appears: No Acute Distress, Chronically Ill - Head Exam Head Exam: ATRAUMATIC, NORMAL INSPECTION, NORMOCEPHALIC - Eye Exam Eye Exam: EOMI, Normal Appearance. absent: Conjunctival injection, Scleral icterus Pupil Exam: PERRL. absent: Irregular, Unequal - ENT Exam ENT Exam: Mucous Membranes Moist, wearing High-flow Nasal Canula. Absent: ETT/ OGT - Neck Exam Neck Exam: Not holding head rigid, some spontaneous movement of head, some ROM on command - Respiratory Exam Respiratory Exam: Decreased Breath Sounds (mildly decreased breath sounds in all fox). absent: Accessory Muscle Use, Chest Wall Tenderness, Clear to Ausculation Bilateral, Rales, Rhonchi, Wheezes - Cardiovascular Exam Cardiovascular Exam: REGULAR RHYTHM, RRR, +S1, +S2. absent: Bradycardia, Tachycardia, Irregular Rhythm, +S4 - GI/Abdominal Exam GI & Abdominal Exam: absent: Firm, Rigid - Exam Exam: Araiza in place, draining clear yellow urine - Extremities Exam Extremities Exam: wearing weight offloading boots, trace - +1 pedal edema, faintly palpable bilateral dorsalis pedis pulses - Neurological Exam Neurological Exam: Awake, somewhat alert, following some commands, some spontaneous extremities movements - Psychiatric Exam Psychiatric Exam: unable to assess due to mainly non-verbal - Skin Skin Exam: diffusely scattered echymoses throughout body, both arms grossly bruised, midline chest scar (CABG) appears unchanged Assessment and Plan - Assessment and Plan (Free Text) Assessment: This is an 86 yo M with PMH of hemolytic anemia, CAD, COPD, CABG, hx of diverticulitis, gastritis, GERD, BPPH, and Asbestosis who was transferred to the ICU s/p cardiac arrest with ROSC. Surgery consulted for trach placement. Plan: -patient scheduled for Trach placement on , however currently extubated and tolerating well -if continues to tolerate extubation, no need for Trach -Possible PEG by GI, defer to GI for restarting plavix -further medical management as per primary Will discuss with Dr. Cooper At this time, we will sign off, please re-consult as necessary
[2017-01-22 08:08] LABS: ANISOCYTOSIS 1+; HYPOCHROMIA 1+; PLATELET ESTIMATE NORMAL (NORMAL); POLYCHROMASIA SLIGHT
[2017-01-22 08:09] LABS: LARGE PLATELETS PRESENT; OVALOCYTES SLIGHT
[2017-01-22 08:14] LABS: BAND 3 % (0-2); EOSINOPHIL 2 % (0.0-3.0)
[2017-01-22 08:15] LABS: METAMYELOCYTE 7 %; MYELOCYTE 12 %
[2017-01-22 08:16] LABS: NEUTROPHIL 67 % (50.0-70.0)
--- NOTE | 2017-01-22 08:19 | CP.PCM.PN ---
Subjective - Date & Time of Evaluation Date of Evaluation: 01/22/17 Time of Evaluation: 07:45 - Subjective Subjective: Patient is seen this morning in critical care unit bed 7. He is on high flow oxygen. He is awake and eyes are open. Objective - Vital Signs/Intake and Output Vital Signs (last 24 hours): Temp Pulse Resp BP Pulse Ox 98.5 F 102 H 22 149/68 98 01/22/17 04:00 01/22/17 07:00 01/22/17 07:00 01/22/17 07:00 01/22/17 07:00 - Medications Medications: Current Medications Acetaminophen (Tylenol 650mg/20.3ml Solution Ud) 650 mg PO Q6H PRN PRN Reason: fever Last Admin: 01/20/17 12:00 Dose: 650 mg Amiodarone HCl (Cordarone) 200 mg PO DAILY [facility] Last Admin: 01/21/17 09:58 Dose: 200 mg Aspirin (Aspirin Chewable) 81 mg PO DAILY [facility] Last Admin: 01/21/17 09:58 Dose: 81 mg Diltiazem HCl (Cardizem) 60 mg PO QID [facility] Last Admin: 01/21/17 17:37 Dose: Not Given Diltiazem HCl (Cardizem) 5 mg IVP Q3 PRN PRN Reason: HR >120 or SBP > 160 Docusate Sodium (Colace Liquid) 100 mg PO TID [facility] Last Admin: 01/21/17 18:38 Dose: Not Given Enoxaparin Sodium (Lovenox) 40 mg SC DAILY [facility] PRN Reason: Protocol Last Admin: 01/21/17 10:08 Dose: 40 mg Hydralazine HCl (Apresoline) 10 mg IVP Q6 PRN PRN Reason: for SBP>170 & or Diastolic>100 Hydrocortisone Sodium Succinate (Solu-Cortef) 50 mg IVP Q12H [facility] Last Admin: 01/21/17 21:34 Dose: 50 mg Daptomycin 510 mg/ Sodium (Chloride) 100 mls @ 100 mls/hr IV Q24H [facility] Stop: 01/22/17 10:01 Last Admin: 01/21/17 13:40 Dose: 100 mls/hr Dextrose (Dextrose 5% In Water 1000 Ml) 1,000 mls @ 60 mls/hr IV .[id number] [facility] Last Admin: 01/21/17 17:49 Dose: 60 mls/hr Doxycycline Hyclate 100 mg/ (Sodium Chloride) 100 mls @ 100 mls/hr IVPB Q12 [facility] PRN Reason: Protocol Last Admin: 01/21/17 21:36 Dose: 100 mls/hr Pantoprazole Sodium (Protonix 40mg Ivpb) 40 mg in 100 mls @ 200 mls/hr IVPB 0600 [facility] Last Admin: 01/22/17 06:32 Dose: 200 mls/hr Insulin Human Regular (Humulin R Low) 0 units SC Q6 [facility]ESS[facility] PRN Reason: Protocol Last Admin: 01/22/17 06:47 Dose: Not Given Isosorbide Mononitrate (Imdur) 60 mg PO DAILY [facility] Last Admin: 01/21/17 09:58 Dose: 60 mg Labetalol HCl (Trandate) 10 mg IV Q3H PRN PRN Reason: Systolic Blood Pressure Levalbuterol HCl (Xopenex) 0.63 mg IH [id number] [facility] Last Admin: 01/22/17 07:32 Dose: 0.63 mg Levalbuterol HCl (Xopenex) 0.63 mg IH Q2 PRN PRN Reason: Shortness of Breath Last Admin: 01/14/17 11:25 Dose: 0.63 mg Metoprolol Tartrate (Lopressor) 25 mg PO BID [facility] Last Admin: 01/21/17 09:58 Dose: 25 mg Metoprolol Tartrate (Lopressor) 10 mg IVP BID [facility] Last Admin: 01/21/17 17:48 Dose: 10 mg Nystatin (Nystop Topical Powder) 0 gm TOP BID [facility] Last Admin: 01/21/17 18:38 Dose: 1 u Sennosides (Senokot Tab) 8.6 mg PO DAILY [facility] Last Admin: 01/21/17 10:08 Dose: 8.6 mg Tamsulosin HCl (Flomax) 0.4 mg PO DAILY [facility] Last Admin: 01/21/17 10:08 Dose: 0.4 mg - Labs Labs: 01/22/17 05:55 01/22/17 05:55 PT 13.7 Seconds (9.9-11.8) H 01/12/17 04:00 INR 1.27 (0.93-1.08) H 01/12/17 04:00 APTT 32.7 Seconds (23.7-30.8) H 01/12/17 04:00 - Constitutional Appears: No Acute Distress - Head Exam Head Exam: ATRAUMATIC, NORMOCEPHALIC - Respiratory Exam Respiratory Exam: Clear to Ausculation Bilateral, NORMAL BREATHING PATTERN - Cardiovascular Exam Cardiovascular Exam: +S1, +S2 - GI/Abdominal Exam GI & Abdominal Exam: Soft, Normal Bowel Sounds. absent: Tenderness - Neurological Exam Neurological Exam: Awake Assessment and Plan - Assessment and Plan (Free Text) Assessment: s/p cardiac arrest and intubation leukocytosis secondary to pseudo-leukemoid reaction and pneumonia COPD with asbestosis CAD Arthritis T12 compression fracture Plan: Patient is seen this morning and he is on high flow oxygen. Patient opens eyes. continue IV antibiotics as per infectious disease awaiting swallowing eval if patient is able to maintain airway, trach will be cancelled
--- NOTE | 2017-01-22 09:14 | RAD ---
HISTORY: fu COMPARISON: 01/21/2017 FINDINGS: LUNGS: Exam is markedly limited -lung volumes are very shallow, study is rotated towards the right the chin is obscuring right lung apex. Based on the images inferolateral pleural parenchymal pathology zipper pleural thickening/reaction at minimum small pleural effusions right greater than left are suspect. PLEURA: No significant pleural effusion identified, no pneumothorax apparent. CARDIOVASCULAR: Cardiomegaly inferred OSSEOUS STRUCTURES: No significant abnormalities. VISUALIZED UPPER ABDOMEN: Normal. OTHER FINDINGS: A right central line tip is estimated in the right atrium as before. Currently no endotracheal tube were NG tube is appreciated. Correlate clinically. IMPRESSION: Markedly limited exam for reasons stated above. Endotracheal tube and NG tube not appreciated -correlate clinically. Consider repeat exam .
[2017-01-22] MEDS: Enoxaparin 40 mg Syringe SC SCH (09:33)
[2017-01-22] MEDS: Metoprolol 1 mg/ml Inj IVP SCH (09:38)
[2017-01-22] MEDS: Nystatin 100,000 Units/gm Topical Pow(15 gm) TOP SCH ×2 (09:40→18:25)
--- NOTE | 2017-01-22 10:07 | CP.PCM.PN ---
<April Apple - Last Filed: 01/22/17 10:04> Subjective - Date & Time of Evaluation Date of Evaluation: 01/22/17 Time of Evaluation: 07:00 - Subjective Subjective: ICU Progress Note Patient seen and examined at bedside. Pt is awake and moving spontaneously and following minimal commands, however remains nonverbal. Pt was successfully extubated yesterday and is tolerating High flow NC at 60%. No acute or adverse events overnight as per nursing staff. Objective - Vital Signs/Intake and Output Vital Signs (last 24 hours): Temp Pulse Resp BP Pulse Ox 98 F 97 H 24 133/58 L 96 01/22/17 08:00 01/22/17 09:38 01/22/17 08:00 01/22/17 09:38 01/22/17 08:00 - Medications Medications: Current Medications Acetaminophen (Tylenol 650mg/20.3ml Solution Ud) 650 mg PO Q6H PRN PRN Reason: fever Last Admin: 01/20/17 12:00 Dose: 650 mg Amiodarone HCl (Cordarone) 200 mg PO DAILY [facility] Last Admin: 01/22/17 09:23 Dose: Not Given Aspirin (Aspirin Chewable) 81 mg PO DAILY [facility] Last Admin: 01/22/17 09:22 Dose: Not Given Diltiazem HCl (Cardizem) 60 mg PO QID [facility] Last Admin: 01/21/17 17:37 Dose: Not Given Diltiazem HCl (Cardizem) 5 mg IVP Q3 PRN PRN Reason: HR >120 or SBP > 160 Docusate Sodium (Colace Liquid) 100 mg PO TID [facility] Last Admin: 01/22/17 09:22 Dose: Not Given Enoxaparin Sodium (Lovenox) 40 mg SC DAILY [facility] PRN Reason: Protocol Last Admin: 01/22/17 09:33 Dose: 40 mg Hydralazine HCl (Apresoline) 10 mg IVP Q6 PRN PRN Reason: for SBP>170 & or Diastolic>100 Hydrocortisone Sodium Succinate (Solu-Cortef) 50 mg IVP Q12H [facility] Last Admin: 01/22/17 09:39 Dose: 50 mg Dextrose (Dextrose 5% In Water 1000 Ml) 1,000 mls @ 60 mls/hr IV .[id number] [facility] Last Admin: 01/22/17 09:34 Dose: 60 mls/hr Doxycycline Hyclate 100 mg/ (Sodium Chloride) 100 mls @ 100 mls/hr IVPB Q12 [facility] PRN Reason: Protocol Last Admin: 01/22/17 09:34 Dose: 100 mls/hr Pantoprazole Sodium (Protonix 40mg Ivpb) 40 mg in 100 mls @ 200 mls/hr IVPB 0600 [facility] Last Admin: 01/22/17 06:32 Dose: 200 mls/hr Insulin Human Regular (Humulin R Low) 0 units SC Q6 [facility] PRN Reason: Protocol Last Admin: 01/22/17 06:47 Dose: Not Given Isosorbide Mononitrate (Imdur) 60 mg PO DAILY [facility] Last Admin: 01/22/17 09:24 Dose: Not Given Labetalol HCl (Trandate) 10 mg IV Q3H PRN PRN Reason: Systolic Blood Pressure Levalbuterol HCl (Xopenex) 0.63 mg IH [id number] [facility] Last Admin: 01/22/17 07:32 Dose: 0.63 mg Levalbuterol HCl (Xopenex) 0.63 mg IH Q2 PRN PRN Reason: Shortness of Breath Last Admin: 01/14/17 11:25 Dose: 0.63 mg Metoprolol Tartrate (Lopressor) 25 mg PO BID [facility] Last Admin: 01/21/17 09:58 Dose: 25 mg Metoprolol Tartrate (Lopressor) 10 mg IVP BID [facility] Last Admin: 01/22/17 09:38 Dose: 10 mg Nystatin (Nystop Topical Powder) 0 gm TOP BID [facility] Last Admin: 01/22/17 09:40 Dose: 1 applic Sennosides (Senokot Tab) 8.6 mg PO DAILY [facility] Last Admin: 01/22/17 09:24 Dose: Not Given Tamsulosin HCl (Flomax) 0.4 mg PO DAILY [facility] Last Admin: 01/22/17 09:24 Dose: Not Given - Labs Labs: 01/22/17 05:55 01/22/17 05:55 PT 13.7 Seconds (9.9-11.8) H 01/12/17 04:00 INR 1.27 (0.93-1.08) H 01/12/17 04:00 APTT 32.7 Seconds (23.7-30.8) H 01/12/17 04:00 - Constitutional Appears: No Acute Distress, Chronically Ill - Head Exam Head Exam: ATRAUMATIC, NORMAL INSPECTION, NORMOCEPHALIC - Eye Exam Eye Exam: EOMI, Normal appearance, PERRL Pupil Exam: NORMAL ACCOMODATION, PERRL - ENT Exam ENT Exam: Mucous Membranes Moist, Normal Exam - Neck Exam Neck Exam: Normal Inspection - Respiratory Exam Respiratory Exam: Rhonchi, NORMAL BREATHING PATTERN - Cardiovascular Exam Cardiovascular Exam: Tachycardia, +S1, +S2. absent: Murmur - GI/Abdominal Exam GI & Abdominal Exam: Soft, Normal Bowel Sounds. absent: Tenderness - Extremities Exam Extremities Exam: Normal Inspection - Back Exam Additional comments: erythema to sacrum - Neurological Exam Neurological Exam: Awake - Skin Skin Exam: Dry, Erythema, Intact, Normal Color, Petechiae, Warm Assessment and Plan - Assessment and Plan (Free Text) Assessment: 86 M admitted to the ICU for AMS and ventilatory dependent respiratory failure s /p cardiac arrest with ROSC. Now extubated and tolerating high flow NC at 60%. Will re-eval swallow. Pending PEG eval by GI. Neuro: - Extubated today, remains nonverbal, obeying simple commands, moving extremities spontaneously, swallow eval pending - Maintain normothermia - EEG showed diffuse slowing consistent with hypoxic injury. - MRI brain shows cortical ribboning in the parietal region consistent with cortical ischemia. - Head CT showed no acute changes - Neuro (Korya) consulted, all recs appreciated Cardio: - s/p cardiac arrest, ROSC - On amiodarone, Cardizem QID, hydralazine PRN - On ASA, plavix, imdur, metoprolol - maintain MAP > 65 - Stress dose steroids BID, continue taper down - Therapeutic Lovenox - Cardio consulted, all recs appreciated Pulm: - s/p extubation today. Will not require trach if he can continue to maintain and protect his airway, general surgery following - ABG reviewed, 02 sat at 99% on 60% high flow NC - Repeat CXR shows more improvement in vascular congestion and various opacities - Conservative O2 management, maintain SaO2 > 92% and paO2 > 60 GI: - Will remain NPO until swallow eval can be completed tomorrow, possible PEG as per GI - IV meds as of now - Protonix IVP for GI ppx - GI consulted for PEG placement, will have swallow eval tomorrow, and may not require PEG if passes swallow eval Renal: - Araiza in place. Good urine output. - Strict I's & O's - Monitor and replete electrolytes as needed - Nephro (Cobb) on consult, all recs appreciated - Maintain euvolemia Endo: - Maintain euglycemia - Accucheck Q6 with SSI - Maintain euglycemia Heme: - H/H stable - Persistent Leukocytosis, interpreted as leukemoid reaction per Hem/Onc - Hem/Onc on consult, all recs appreciated - no signs of active bleeding, continue to monitor ID: - Persistent leukocytosis, afebrile - Sputum culture positive for Stenotrophomonas maltophilia, likely colonization rather than infection. ID on consult, all recs appreciated. - D/c daptomycin today, continue Merrem, as per ID - ID (Tita) consulted, all recs appreciated - Maintain normothermia Ppx: Protonix for GI, Lovenox covers for DVT Patient seen, reviewed, discussed with attending <Kayla MORALES,Ernie H - Last Filed: 01/22/17 13:38> Objective - Vital Signs/Intake and Output Vital Signs (last 24 hours): Temp Pulse Resp BP Pulse Ox 98.2 F 93 H 20 148/69 95 01/22/17 12:00 01/22/17 12:00 01/22/17 12:00 01/22/17 12:00 01/22/17 12:00 - Medications Medications: Current Medications Acetaminophen (Tylenol 650mg/20.3ml Solution Ud) 650 mg PO Q6H PRN PRN Reason: fever Last Admin: 01/20/17 12:00 Dose: 650 mg Amiodarone HCl (Cordarone) 200 mg PO DAILY [facility] Last Admin: 01/22/17 09:23 Dose: Not Given Aspirin (Aspirin Chewable) 81 mg PO DAILY [facility] Last Admin: 01/22/17 09:22 Dose: Not Given Diltiazem HCl (Cardizem) 60 mg PO QID [facility] Last Admin: 01/21/17 17:37 Dose: Not Given Docusate Sodium (Colace Liquid) 100 mg PO TID [facility] Last Admin: 01/22/17 09:22 Dose: Not Given Enoxaparin Sodium (Lovenox) 40 mg SC DAILY [facility] PRN Reason: Protocol Last Admin: 01/22/17 09:33 Dose: 40 mg Hydralazine HCl (Apresoline) 10 mg IVP Q6 PRN PRN Reason: for SBP>170 & or Diastolic>100 Hydrocortisone Sodium Succinate (Solu-Cortef) 50 mg IVP Q12H [facility] Last Admin: 01/22/17 09:39 Dose: 50 mg Dextrose (Dextrose 5% In Water 1000 Ml) 1,000 mls @ 60 mls/hr IV .[id number] [facility] Last Admin: 01/22/17 09:34 Dose: 60 mls/hr Doxycycline Hyclate 100 mg/ (Sodium Chloride) 100 mls @ 100 mls/hr IVPB Q12 [facility] PRN Reason: Protocol Last Admin: 01/22/17 09:34 Dose: 100 mls/hr Pantoprazole Sodium (Protonix 40mg Ivpb) 40 mg in 100 mls @ 200 mls/hr IVPB 0600 [facility] Last Admin: 01/22/17 06:32 Dose: 200 mls/hr Meropenem 1g/NS 100mL IVPB (Meropenem 1g/Ns 100ml Ivpb) 1 gm in 100 mls @ 100 mls/hr IVPB Q8 [facility] PRN Reason: Protocol Stop: 01/29/17 14:01 Insulin Human Regular (Humulin R Low) 0 units SC Q6 [facility] PRN Reason: Protocol Last Admin: 01/22/17 12:07 Dose: Not Given Isosorbide Mononitrate (Imdur) 60 mg PO DAILY [facility] Last Admin: 01/22/17 09:24 Dose: Not Given Labetalol HCl (Trandate) 10 mg IV Q3H PRN PRN Reason: Systolic Blood Pressure Levalbuterol HCl (Xopenex) 0.63 mg IH [id number] [facility] Last Admin: 01/22/17 13:33 Dose: 0.63 mg Levalbuterol HCl (Xopenex) 0.63 mg IH Q2 PRN PRN Reason: Shortness of Breath Last Admin: 01/14/17 11:25 Dose: 0.63 mg Metoprolol Tartrate (Lopressor) 25 mg PO BID [facility] Last Admin: 01/21/17 09:58 Dose: 25 mg Nystatin (Nystop Topical Powder) 0 gm TOP BID [facility] Last Admin: 01/22/17 09:40 Dose: 1 applic Sennosides (Senokot Tab) 8.6 mg PO DAILY [facility] Last Admin: 01/22/17 09:24 Dose: Not Given Tamsulosin HCl (Flomax) 0.4 mg PO DAILY [facility] Last Admin: 01/22/17 09:24 Dose: Not Given - Labs Labs: 01/22/17 05:55 01/22/17 05:55 PT 13.7 Seconds (9.9-11.8) H 01/12/17 04:00 INR 1.27 (0.93-1.08) H 01/12/17 04:00 APTT 32.7 Seconds (23.7-30.8) H 01/12/17 04:00 Attending/Attestation - Attestation I have personally seen and examined this patient.: Yes I have fully participated in the care of the patient.: Yes I have reviewed all pertinent clinical information, including history, physical exam and plan: Yes Notes (Text): 01/22/17 13:36 86 y/o M w/ Prolonged respiratory failure s/p Extubation yesterday Currently on NC w/o distress. Failed swallow evaluation, plan for DF tube and enteral feeds and medications Continue IV abx course x 8 days per ID. Colonization of SM DVT P neurological recovery minimal. will need a PEG likely and palliative care following for DNR/DNI request , cc time 55 min
--- NOTE | 2017-01-22 10:18 | CP.PCM.PN ---
Subjective - Date & Time of Evaluation Date of Evaluation: 01/22/17 Time of Evaluation: 09:10 - Subjective Subjective: Comfortable, now extubated, on high flow oxygen, no fevers overnight. Objective - Vital Signs/Intake and Output Vital Signs (last 24 hours): Temp Pulse Resp BP Pulse Ox 98.5 F 101 H 26 H 131/66 96 01/22/17 04:00 01/22/17 05:00 01/22/17 04:00 01/22/17 01:01 01/22/17 05:00 Intake and Output: 01/21/17 01/22/17 18:59 06:59 Intake Total 720 Output Total 450 Balance 270 - Medications Medications: Current Medications Acetaminophen (Tylenol 650mg/20.3ml Solution Ud) 650 mg PO Q6H PRN PRN Reason: fever Last Admin: 01/20/17 12:00 Dose: 650 mg Amiodarone HCl (Cordarone) 200 mg PO DAILY [facility] Last Admin: 01/21/17 09:58 Dose: 200 mg Aspirin (Aspirin Chewable) 81 mg PO DAILY [facility] Last Admin: 01/21/17 09:58 Dose: 81 mg Diltiazem HCl (Cardizem) 60 mg PO QID [facility] Last Admin: 01/21/17 17:37 Dose: Not Given Diltiazem HCl (Cardizem) 5 mg IVP Q3 PRN PRN Reason: HR >120 or SBP > 160 Docusate Sodium (Colace Liquid) 100 mg PO TID [facility] Last Admin: 01/21/17 18:38 Dose: Not Given Enoxaparin Sodium (Lovenox) 40 mg SC DAILY [facility] PRN Reason: Protocol Last Admin: 01/21/17 10:08 Dose: 40 mg Hydralazine HCl (Apresoline) 10 mg IVP Q6 PRN PRN Reason: for SBP>170 & or Diastolic>100 Hydrocortisone Sodium Succinate (Solu-Cortef) 50 mg IVP Q12H [facility] Last Admin: 01/21/17 21:34 Dose: 50 mg Daptomycin 510 mg/ Sodium (Chloride) 100 mls @ 100 mls/hr IV Q24H [facility] Stop: 01/22/17 10:01 Last Admin: 01/21/17 13:40 Dose: 100 mls/hr Dextrose (Dextrose 5% In Water 1000 Ml) 1,000 mls @ 60 mls/hr IV .[id number] [facility] Last Admin: 01/21/17 17:49 Dose: 60 mls/hr Doxycycline Hyclate 100 mg/ (Sodium Chloride) 100 mls @ 100 mls/hr IVPB Q12 [facility] PRN Reason: Protocol Last Admin: 01/21/17 21:36 Dose: 100 mls/hr Pantoprazole Sodium (Protonix 40mg Ivpb) 40 mg in 100 mls @ 200 mls/hr IVPB 0600 [facility] Insulin Human Regular (Humulin R Low) 0 units SC Q6 YESSI PRN Reason: Protocol Last Admin: 01/22/17 01:26 Dose: Not Given Isosorbide Mononitrate (Imdur) 60 mg PO DAILY [facility] Last Admin: 01/21/17 09:58 Dose: 60 mg Labetalol HCl (Trandate) 10 mg IV Q3H PRN PRN Reason: Systolic Blood Pressure Levalbuterol HCl (Xopenex) 0.63 mg IH [id number] [facility] Last Admin: 01/22/17 02:06 Dose: 0.63 mg Levalbuterol HCl (Xopenex) 0.63 mg IH Q2 PRN PRN Reason: Shortness of Breath Last Admin: 01/14/17 11:25 Dose: 0.63 mg Metoprolol Tartrate (Lopressor) 25 mg PO BID [facility] Last Admin: 01/21/17 09:58 Dose: 25 mg Metoprolol Tartrate (Lopressor) 10 mg IVP BID [facility] Last Admin: 01/21/17 17:48 Dose: 10 mg Nystatin (Nystop Topical Powder) 0 gm TOP BID [facility] Last Admin: 01/21/17 18:38 Dose: 1 u Sennosides (Senokot Tab) 8.6 mg PO DAILY [facility] Last Admin: 01/21/17 10:08 Dose: 8.6 mg Tamsulosin HCl (Flomax) 0.4 mg PO DAILY [facility] Last Admin: 01/21/17 10:08 Dose: 0.4 mg - Labs Labs: 01/21/17 06:00 01/21/17 06:00 PT 13.7 Seconds (9.9-11.8) H 01/12/17 04:00 INR 1.27 (0.93-1.08) H 01/12/17 04:00 APTT 32.7 Seconds (23.7-30.8) H 01/12/17 04:00 - Constitutional Appears: Other (on high flow oxygen) - Head Exam Head Exam: NORMAL INSPECTION - ENT Exam ENT Exam: Mucous Membranes Moist - Neck Exam Neck Exam: absent: Meningismus - Respiratory Exam Respiratory Exam: Decreased Breath Sounds, Rales (scattered) - Cardiovascular Exam Cardiovascular Exam: +S1, +S2 - GI/Abdominal Exam GI & Abdominal Exam: Soft. absent: Tenderness Assessment and Plan - Assessment and Plan (Free Text) Plan: Assessment S/P ventilator-dependent respiratory failure - sepsis from healthcare- associated pneumonia (new onset) with Stenotrophomonas, clinically improving and now extubated S/P cardiac arrest, etiology to be determined, but should consider myocardial infarction or cardiac arrhythmia Coagulase negative staph in blood cx, R/O port-related bacteremia right sided mastoiditis noted on the MRI of the head T12 compression fracture CAD S/P CABG COPD history of asbestosis history of Coomb's positive hemolytic anemia history of diverticulitis gastritis GERD benign prostatic hyperplasia Plan will d/c Daptomycin (completed 14 days); repeat blood cx are negative; echocardiogram does not show vegetations continue Merrem (day 10) for the mastoiditis but will extend it since the patient has pneumonia - will also add Doxycycline and gave a dose of IV Vancomycin yesteday (day 3 ) for treatment of pneumonia today - Stenotrophomonas is sensitive to Ceftazidime, would make it sensitive to Merrem as well but we may switch to Bactrim by tomorrow - will target 4-7 days of antibiotics for pneumonia will continue to monitor clinically Overall prognosis is poor
--- NOTE | 2017-01-22 10:59 | CP.PCM.PN ---
<Mallory Chambers - Last Filed: 01/22/17 14:57> Subjective - Date & Time of Evaluation Date of Evaluation: 01/22/17 Time of Evaluation: 14:57 - Subjective Subjective: Gastroenterology Fellow/PGY5 Progress Note Patient nonverbal to questioning. Not following commands. Awake and alert. Failed swallow evaluation at bedside during examination. 12-point review of systems not able to be completed due to nonverbal state. Objective - Vital Signs/Intake and Output Vital Signs (last 24 hours): Temp Pulse Resp BP Pulse Ox 98 F 89 19 131/67 98 01/22/17 08:00 01/22/17 10:00 01/22/17 10:00 01/22/17 10:00 01/22/17 10:00 - Medications Medications: Current Medications Acetaminophen (Tylenol 650mg/20.3ml Solution Ud) 650 mg PO Q6H PRN PRN Reason: fever Last Admin: 01/20/17 12:00 Dose: 650 mg Amiodarone HCl (Cordarone) 200 mg PO DAILY [facility] Last Admin: 01/22/17 09:23 Dose: Not Given Aspirin (Aspirin Chewable) 81 mg PO DAILY [facility] Last Admin: 01/22/17 09:22 Dose: Not Given Diltiazem HCl (Cardizem) 60 mg PO QID [facility] Last Admin: 01/21/17 17:37 Dose: Not Given Diltiazem HCl (Cardizem) 5 mg IVP Q3 PRN PRN Reason: HR >120 or SBP > 160 Docusate Sodium (Colace Liquid) 100 mg PO TID [facility] Last Admin: 01/22/17 09:22 Dose: Not Given Enoxaparin Sodium (Lovenox) 40 mg SC DAILY [facility] PRN Reason: Protocol Last Admin: 01/22/17 09:33 Dose: 40 mg Hydralazine HCl (Apresoline) 10 mg IVP Q6 PRN PRN Reason: for SBP>170 & or Diastolic>100 Hydrocortisone Sodium Succinate (Solu-Cortef) 50 mg IVP Q12H [facility] Last Admin: 01/22/17 09:39 Dose: 50 mg Dextrose (Dextrose 5% In Water 1000 Ml) 1,000 mls @ 60 mls/hr IV .[id number] [facility] Last Admin: 01/22/17 09:34 Dose: 60 mls/hr Doxycycline Hyclate 100 mg/ (Sodium Chloride) 100 mls @ 100 mls/hr IVPB Q12 [facility] PRN Reason: Protocol Last Admin: 01/22/17 09:34 Dose: 100 mls/hr Pantoprazole Sodium (Protonix 40mg Ivpb) 40 mg in 100 mls @ 200 mls/hr IVPB 0600 [facility] Last Admin: 01/22/17 06:32 Dose: 200 mls/hr Meropenem 1g/NS 100mL IVPB (Meropenem 1g/Ns 100ml Ivpb) 1 gm in 100 mls @ 100 mls/hr IVPB Q8 [facility] PRN Reason: Protocol Stop: 01/29/17 14:01 Insulin Human Regular (Humulin R Low) 0 units SC Q6 [facility] PRN Reason: Protocol Last Admin: 01/22/17 06:47 Dose: Not Given Isosorbide Mononitrate (Imdur) 60 mg PO DAILY [facility] Last Admin: 01/22/17 09:24 Dose: Not Given Labetalol HCl (Trandate) 10 mg IV Q3H PRN PRN Reason: Systolic Blood Pressure Levalbuterol HCl (Xopenex) 0.63 mg IH [id number] [facility] Last Admin: 01/22/17 07:32 Dose: 0.63 mg Levalbuterol HCl (Xopenex) 0.63 mg IH Q2 PRN PRN Reason: Shortness of Breath Last Admin: 01/14/17 11:25 Dose: 0.63 mg Metoprolol Tartrate (Lopressor) 25 mg PO BID [facility] Last Admin: 01/21/17 09:58 Dose: 25 mg Metoprolol Tartrate (Lopressor) 10 mg IVP BID [facility] Last Admin: 01/22/17 09:38 Dose: 10 mg Nystatin (Nystop Topical Powder) 0 gm TOP BID [facility] Last Admin: 01/22/17 09:40 Dose: 1 applic Sennosides (Senokot Tab) 8.6 mg PO DAILY [facility] Last Admin: 01/22/17 09:24 Dose: Not Given Tamsulosin HCl (Flomax) 0.4 mg PO DAILY [facility] Last Admin: 01/22/17 09:24 Dose: Not Given - Labs Labs: 01/22/17 05:55 01/22/17 05:55 PT 13.7 Seconds (9.9-11.8) H 01/12/17 04:00 INR 1.27 (0.93-1.08) H 01/12/17 04:00 APTT 32.7 Seconds (23.7-30.8) H 01/12/17 04:00 - Constitutional Appears: Non-toxic, No Acute Distress - Head Exam Head Exam: ATRAUMATIC, NORMOCEPHALIC - Eye Exam Eye Exam: EOMI, PERRL Pupil Exam: PERRL. absent: Miosis, Mydriatic - ENT Exam ENT Exam: Mucous Membranes Moist, Normal Oropharynx - Neck Exam Neck Exam: Full ROM, Normal Inspection - Respiratory Exam Respiratory Exam: Clear to Ausculation Bilateral. absent: Rales, Rhonchi, Wheezes - Cardiovascular Exam Cardiovascular Exam: RRR, +S1, +S2. absent: Gallop, Rubs - GI/Abdominal Exam GI & Abdominal Exam: Soft, Normal Bowel Sounds. 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 Active treatment of ventilator dependent respiratory failure 2/2 Vfib arrest with ROSC on 01/12 with concern for hypoxic brain injury on EEG, with initial diagnosis of T12 compression fracture and sepsis 2/2 HCAP complicated by leukemoid reaction. GI consultation for evaluation of PEG placement. Prior EGD 2010 showed hiatal hernia and Gastritis. Unable to confirm prior colonoscopy as patient is intubated. Plan: >extubated 01/21 >failed swallow evaluation today >repeat swallow evaluation tomorrow >if fail swallow eval tomorrow, would re-assess through the weekend a >await neurology recommendatinons >recommend restart Plavix while follow clinical course <Ivonne Paulson MD - Last Filed: 01/22/17 17:07> Objective - Vital Signs/Intake and Output Vital Signs (last 24 hours): Temp Pulse Resp BP Pulse Ox 98.0 F 105 H 18 152/74 H 96 01/22/17 16:22 01/22/17 16:22 01/22/17 16:22 01/22/17 16:22 01/22/17 16:22 - Medications Medications: Current Medications Acetaminophen (Tylenol 650mg/20.3ml Solution Ud) 650 mg PO Q6H PRN PRN Reason: fever Last Admin: 01/20/17 12:00 Dose: 650 mg Amiodarone HCl (Cordarone) 200 mg PO DAILY [facility] Last Admin: 01/22/17 09:23 Dose: Not Given Aspirin (Aspirin Chewable) 81 mg PO DAILY [facility] Last Admin: 01/22/17 09:22 Dose: Not Given Diltiazem HCl (Cardizem) 60 mg PO QID [facility] Last Admin: 01/22/17 14:18 Dose: 60 mg Docusate Sodium (Colace Liquid) 100 mg PO TID [facility] Last Admin: 01/22/17 14:21 Dose: 100 mg Enoxaparin Sodium (Lovenox) 40 mg SC DAILY [facility] PRN Reason: Protocol Last Admin: 01/22/17 09:33 Dose: 40 mg Hydralazine HCl (Apresoline) 10 mg IVP Q6 PRN PRN Reason: for SBP>170 & or Diastolic>100 Hydrocortisone Sodium Succinate (Solu-Cortef) 50 mg IVP Q12H [facility] Last Admin: 01/22/17 09:39 Dose: 50 mg Dextrose (Dextrose 5% In Water 1000 Ml) 1,000 mls @ 60 mls/hr IV .[id number] [facility] Last Admin: 01/22/17 09:34 Dose: 60 mls/hr Doxycycline Hyclate 100 mg/ (Sodium Chloride) 100 mls @ 100 mls/hr IVPB Q12 [facility] PRN Reason: Protocol Last Admin: 01/22/17 09:34 Dose: 100 mls/hr Pantoprazole Sodium (Protonix 40mg Ivpb) 40 mg in 100 mls @ 200 mls/hr IVPB 0600 [facility] Last Admin: 01/22/17 06:32 Dose: 200 mls/hr Meropenem 1g/NS 100mL IVPB (Meropenem 1g/Ns 100ml Ivpb) 1 gm in 100 mls @ 100 mls/hr IVPB Q8 [facility] PRN Reason: Protocol Stop: 01/29/17 14:01 Last Admin: 01/22/17 14:18 Dose: 100 mls/hr Insulin Human Regular (Humulin R Low) 0 units SC Q6 [facility] PRN Reason: Protocol Last Admin: 01/22/17 12:07 Dose: Not Given Isosorbide Mononitrate (Imdur) 60 mg PO DAILY [facility] Last Admin: 01/22/17 09:24 Dose: Not Given Labetalol HCl (Trandate) 10 mg IV Q3H PRN PRN Reason: Systolic Blood Pressure Levalbuterol HCl (Xopenex) 0.63 mg IH [id number] [facility] Last Admin: 01/22/17 13:33 Dose: 0.63 mg Levalbuterol HCl (Xopenex) 0.63 mg IH Q2 PRN PRN Reason: Shortness of Breath Last Admin: 01/14/17 11:25 Dose: 0.63 mg Metoprolol Tartrate (Lopressor) 25 mg PO BID [facility] Last Admin: 01/21/17 09:58 Dose: 25 mg Nystatin (Nystop Topical Powder) 0 gm TOP BID [facility] Last Admin: 01/22/17 09:40 Dose: 1 applic Sennosides (Senokot Tab) 8.6 mg PO DAILY [facility] Last Admin: 01/22/17 09:24 Dose: Not Given Tamsulosin HCl (Flomax) 0.4 mg PO DAILY [facility] Last Admin: 01/22/17 09:24 Dose: Not Given - Labs Labs: 01/22/17 05:55 01/22/17 05:55 PT 13.7 Seconds (9.9-11.8) H 01/12/17 04:00 INR 1.27 (0.93-1.08) H 01/12/17 04:00 APTT 32.7 Seconds (23.7-30.8) H 01/12/17 04:00 Attending/Attestation - Attestation I have personally seen and examined this patient.: Yes I have fully participated in the care of the patient.: Yes I have reviewed all pertinent clinical information, including history, physical exam and plan: Yes Notes (Text): 01/22/17 17:05 Patient seen and examined with GI fellow on rounds. This is a 86 year old male with h/o Asbestosis exposure, CAD s/p CABG/Stents, COPD, Hemolytic anemia in ICU after cardiac arrest, now recovering, we are consutled for PEG. s/p extubation yesterday on high flow oxygen. failed speech and swallow today. Will give few days for swallow evaluations once off high flow oxygen. Alert and following directions. PEG placemnet is not scheduled yet so no indication to hold plavix.
[2017-01-22] MEDS: DAPTOmycin 510 MG in Sodium Chloride 0.9% 100 ML IV SCH (11:00)
[2017-01-22] MEDS: Meropenem 1g/NS 100mL IVPB 1 GM/100 ML PIGGYBACK IVPB SCH ×2 (14:18→21:26)
--- NOTE | 2017-01-22 14:31 | RAD ---
HISTORY: NG tube placement COMPARISON: Earlier same day FINDINGS: LUNGS: Bibasilar infiltrates PLEURA: Small bilateral pleural effusions CARDIOVASCULAR: Moderate cardiomegaly OSSEOUS STRUCTURES: No significant abnormalities. VISUALIZED UPPER ABDOMEN: Normal. OTHER FINDINGS: None. IMPRESSION: The feeding tube is seen in the body of the stomach in satisfactory position
--- NOTE | 2017-01-22 18:17 | CP.PCM.PN ---
Subjective - Date & Time of Evaluation Date of Evaluation: 01/22/17 Time of Evaluation: 18:15 - Subjective Subjective: pt needs dobbhoff tube placed in . Objective - Vital Signs/Intake and Output Vital Signs (last 24 hours): Temp Pulse Resp BP Pulse Ox 98.0 F 105 H 18 152/74 H 96 01/22/17 16:22 01/22/17 16:22 01/22/17 16:22 01/22/17 16:22 01/22/17 16:22 - Medications Medications: Current Medications Acetaminophen (Tylenol 650mg/20.3ml Solution Ud) 650 mg PO Q6H PRN PRN Reason: fever Last Admin: 01/20/17 12:00 Dose: 650 mg Amiodarone HCl (Cordarone) 200 mg PO DAILY [facility] Last Admin: 01/22/17 09:23 Dose: Not Given Aspirin (Aspirin Chewable) 81 mg PO DAILY [facility] Last Admin: 01/22/17 09:22 Dose: Not Given Diltiazem HCl (Cardizem) 60 mg PO QID [facility] Last Admin: 01/22/17 14:18 Dose: 60 mg Docusate Sodium (Colace Liquid) 100 mg PO TID [facility] Last Admin: 01/22/17 14:21 Dose: 100 mg Enoxaparin Sodium (Lovenox) 40 mg SC DAILY [facility] PRN Reason: Protocol Last Admin: 01/22/17 09:33 Dose: 40 mg Hydralazine HCl (Apresoline) 10 mg IVP Q6 PRN PRN Reason: for SBP>170 & or Diastolic>100 Hydrocortisone Sodium Succinate (Solu-Cortef) 50 mg IVP Q12H [facility] Last Admin: 01/22/17 09:39 Dose: 50 mg Dextrose (Dextrose 5% In Water 1000 Ml) 1,000 mls @ 60 mls/hr IV .[id number] [facility] Last Admin: 01/22/17 09:34 Dose: 60 mls/hr Doxycycline Hyclate 100 mg/ (Sodium Chloride) 100 mls @ 100 mls/hr IVPB Q12 [facility] PRN Reason: Protocol Last Admin: 01/22/17 09:34 Dose: 100 mls/hr Pantoprazole Sodium (Protonix 40mg Ivpb) 40 mg in 100 mls @ 200 mls/hr IVPB 0600 [facility] Last Admin: 01/22/17 06:32 Dose: 200 mls/hr Meropenem 1g/NS 100mL IVPB (Meropenem 1g/Ns 100ml Ivpb) 1 gm in 100 mls @ 100 mls/hr IVPB Q8 [facility] PRN Reason: Protocol Stop: 01/29/17 14:01 Last Admin: 01/22/17 14:18 Dose: 100 mls/hr Insulin Human Regular (Humulin R Low) 0 units SC Q6 [facility] PRN Reason: Protocol Last Admin: 01/22/17 12:07 Dose: Not Given Isosorbide Mononitrate (Imdur) 60 mg PO DAILY [facility] Last Admin: 01/22/17 09:24 Dose: Not Given Labetalol HCl (Trandate) 10 mg IV Q3H PRN PRN Reason: Systolic Blood Pressure Levalbuterol HCl (Xopenex) 0.63 mg IH [id number] [facility] Last Admin: 01/22/17 13:33 Dose: 0.63 mg Levalbuterol HCl (Xopenex) 0.63 mg IH Q2 PRN PRN Reason: Shortness of Breath Last Admin: 01/14/17 11:25 Dose: 0.63 mg Metoprolol Tartrate (Lopressor) 25 mg PO BID [facility] Last Admin: 01/21/17 09:58 Dose: 25 mg Nystatin (Nystop Topical Powder) 0 gm TOP BID [facility] Last Admin: 01/22/17 09:40 Dose: 1 applic Sennosides (Senokot Tab) 8.6 mg PO DAILY [facility] Last Admin: 01/22/17 09:24 Dose: Not Given Tamsulosin HCl (Flomax) 0.4 mg PO DAILY [facility] Last Admin: 01/22/17 09:24 Dose: Not Given - Labs Labs: 01/22/17 05:55 01/22/17 05:55 PT 13.7 Seconds (9.9-11.8) H 01/12/17 04:00 INR 1.27 (0.93-1.08) H 01/12/17 04:00 APTT 32.7 Seconds (23.7-30.8) H 01/12/17 04:00 Assessment and Plan - Assessment and Plan (Free Text) Assessment: dobhoff tube placed in at level 60 cm. will get xray done.
--- NOTE | 2017-01-22 19:03 | PN ---
DATE: SUBJECTIVE: Patient is currently seen in ICU bed 7. He remains on high flow oxygen. He remains rather lethargic. There is some thought of placement of a PEG tube if he fails another swallowing evaluation. For right now, a Dobhoff tube will be placed and the patient will be placed back on Jevity. Right now, he remains on maintenance IV fluids with a creatinine of less than 1. MEDICATIONS: Medication list reviewed. Patient is currently on hydralazine p.r.n., aspirin, Cardizem, Colace, amiodarone, D5W 60 an hour, doxycycline, Flomax, insulin, Imdur, Lopressor, Lovenox, meropenem, Nystatin, Protonix, Senokot, Solu-Cortef, Trandate, Tylenol p.r.n., and Xopenex p.r.n. OBJECTIVE: INTAKE/OUTPUT: Intake 720, output 450. VITAL SIGNS: Blood pressure 139/63, temperature 98.3, respiratory rate 21 with a pulse of 97. HEENT: Shows him to be normocephalic, atraumatic. Conjunctivae are pale. Sclerae are nonicteric. Patient remains on high flow oxygen. NECK: Supple. No neck vein distention. CHEST: Clear to auscultation and percussion with scattered rhonchi. No rales or wheezing. CARDIOVASCULAR: Shows regular rate and rhythm without murmurs, rubs, or gallops noted. ABDOMEN: Soft, bowel sounds normal. No rebound. No guarding. No masses. EXTREMITIES: Showed no lower extremity pitting edema. Legs are, however, elevated in bed. No cyanosis or clubbing. LABORATORY DATA AND IMAGING: Microbiology: Sputum was positive for Stenotrophomonas. Blood cultures were negative. Urine cultures were negative. CBC: White blood cell count today is up to 104.6 with a hemoglobin of 9.9, platelet count is 392,000. Patient is felt to have leukemoid reaction. Chemistries show sodium of 142, potassium 4.1, chloride 112 with a CO2 of 25, BUN is 37 with a creatinine of 0.8, glucose is 117, calcium is 7.5. Glucose is 199. Mild elevation of AST and ALT. Alkaline phosphatase is 154. Albumin is low at 2.3. Vitamin D level is low at 24.5. ASSESSMENT: 1. Mild prerenal azotemia in the setting of respiratory failure, pneumonia, chronic obstructive pulmonary disease, and heart disease. His creatinine remains at baseline at less than 1. Patient remains on IV antibiotic therapy. 2. Status post respiratory failure. Patient was extubated and remains on high flow oxygen; however, patient does remain rather lethargic. 3. History of chronic obstructive pulmonary disease, currently stable on current medication and inhalation therapy. 4. History of arteriosclerotic heart disease status post coronary artery bypass graft and possible [id number] myocardial infarction during this present hospitalization. 5. History of anemia, thought to be secondary to hemolytic anemia, normal platelet count, elevated white blood cell count at greater than 100,000, thought to be a leukemoid reaction. 6. History of hypoalbuminemia, albumin 2.3, I agree with the placement of a Dobhoff tube. Patient is being evaluated for PEG tube placement. 7. History of liver enzyme elevation, this appears to be improving slowly. 8. T12 compression fracture, currently stable. 9. Status post cardiac arrest. 10. History of benign prostatic hyperplasia, currently stable. 11. History of asbestosis, currently stable. 12. History of gastroesophageal reflux disease, currently stable on proton pump inhibitor therapy. 13. Status post mild hypernatremia, secondary to volume depletion. This is corrected with hypertonic IV fluid administration. PLAN: 1. From renal standpoint, patient appears to be stable. Mild prerenal azotemia as expected. Complete course of antibiotic therapy. 2. Ensure that the patient receives adequate nutrition. 3. In light of the fact that his creatinine is less than 1, there is no significant ongoing renal issues. I will discontinue follow up at this point in time. Urbano Ball MD
--- NOTE | 2017-01-22 19:41 | CP.PCM.PN ---
Subjective - Date & Time of Evaluation Date of Evaluation: 01/22/17 Time of Evaluation: 19:38 - Subjective Subjective: S:It was requested to check position of Dobhoff tube. CXR was reviewed. Tip of Dobhoff tube seems to be in body of stomach. O: Last Vital Signs 3 Temp 98.0 F 01/22/17 16:22 Pulse 105 H 01/22/17 18:29 Resp 18 01/22/17 16:22 BP 152/74 H 01/22/17 18:25 Pulse Ox 96 01/22/17 16:22 Stable. Normal breathing pattern. A: Encounter for reviewing imaging study after NGT placement. P: Tip of Dobhoff tube seems to be in stomach. Objective - Vital Signs/Intake and Output Vital Signs (last 24 hours): Temp Pulse Resp BP Pulse Ox 98.0 F 105 H 18 152/74 H 96 01/22/17 16:22 01/22/17 18:29 01/22/17 16:22 01/22/17 18:25 01/22/17 16:22 - Medications Medications: Current Medications Acetaminophen (Tylenol 650mg/20.3ml Solution Ud) 650 mg PO Q6H PRN PRN Reason: fever Last Admin: 01/20/17 12:00 Dose: 650 mg Amiodarone HCl (Cordarone) 200 mg PO DAILY [facility] Last Admin: 01/22/17 09:23 Dose: Not Given Aspirin (Aspirin Chewable) 81 mg PO DAILY [facility] Last Admin: 01/22/17 09:22 Dose: Not Given Diltiazem HCl (Cardizem) 60 mg PO QID [facility] Last Admin: 01/22/17 18:23 Dose: Not Given Docusate Sodium (Colace Liquid) 100 mg PO TID [facility] Last Admin: 01/22/17 18:24 Dose: Not Given Enoxaparin Sodium (Lovenox) 40 mg SC DAILY [facility] PRN Reason: Protocol Last Admin: 01/22/17 09:33 Dose: 40 mg Hydralazine HCl (Apresoline) 10 mg IVP Q6 PRN PRN Reason: for SBP>170 & or Diastolic>100 Hydrocortisone Sodium Succinate (Solu-Cortef) 50 mg IVP Q12H [facility] Last Admin: 01/22/17 09:39 Dose: 50 mg Dextrose (Dextrose 5% In Water 1000 Ml) 1,000 mls @ 60 mls/hr IV .[id number] [facility] Last Admin: 01/22/17 09:34 Dose: 60 mls/hr Doxycycline Hyclate 100 mg/ (Sodium Chloride) 100 mls @ 100 mls/hr IVPB Q12 [facility] PRN Reason: Protocol Last Admin: 01/22/17 09:34 Dose: 100 mls/hr Pantoprazole Sodium (Protonix 40mg Ivpb) 40 mg in 100 mls @ 200 mls/hr IVPB 0600 [facility] Last Admin: 01/22/17 06:32 Dose: 200 mls/hr Meropenem 1g/NS 100mL IVPB (Meropenem 1g/Ns 100ml Ivpb) 1 gm in 100 mls @ 100 mls/hr IVPB Q8 [facility] PRN Reason: Protocol Stop: 01/29/17 14:01 Last Admin: 01/22/17 14:18 Dose: 100 mls/hr Insulin Human Regular (Humulin R Low) 0 units SC Q6 [facility] PRN Reason: Protocol Last Admin: 01/22/17 18:24 Dose: Not Given Isosorbide Mononitrate (Imdur) 60 mg PO DAILY [facility] Last Admin: 01/22/17 09:24 Dose: Not Given Labetalol HCl (Trandate) 10 mg IV Q3H PRN PRN Reason: Systolic Blood Pressure Levalbuterol HCl (Xopenex) 0.63 mg IH [id number] [facility] Last Admin: 01/22/17 13:33 Dose: 0.63 mg Levalbuterol HCl (Xopenex) 0.63 mg IH Q2 PRN PRN Reason: Shortness of Breath Last Admin: 01/14/17 11:25 Dose: 0.63 mg Metoprolol Tartrate (Lopressor) 25 mg PO BID [facility] Last Admin: 01/22/17 18:25 Dose: Not Given Nystatin (Nystop Topical Powder) 0 gm TOP BID [facility] Last Admin: 01/22/17 18:25 Dose: Not Given Sennosides (Senokot Tab) 8.6 mg PO DAILY [facility] Last Admin: 01/22/17 09:24 Dose: Not Given Tamsulosin HCl (Flomax) 0.4 mg PO DAILY [facility] Last Admin: 01/22/17 09:24 Dose: Not Given - Labs Labs: 01/22/17 05:55 01/22/17 05:55 PT 13.7 Seconds (9.9-11.8) H 01/12/17 04:00 INR 1.27 (0.93-1.08) H 01/12/17 04:00 APTT 32.7 Seconds (23.7-30.8) H 01/12/17 04:00
--- NOTE | 2017-01-22 22:39 | PN ---
DATE: 01/22/2017 LOCATION: The patient in ICU 128, bed 7. REASON FOR CONSULTATION: Followup status post CPR, status post cardiac arrest, possible anoxic encephalopathy. SUBJECTIVE: The patient is lying comfortably in bed. PHYSICAL EXAMINATION: VITAL SIGNS: Blood pressure 126/59, respiratory rate 22, pulse 101 and temperature 98. HEENT: Head is normocephalic. Pupils normal. Conjunctivae slightly pale. NECK: JVP low. Carotid equal. Thorax, AP diameter normal. LUNGS: No significant rales. CARDIOVASCULAR: S1 and S2. ABDOMEN: Protuberant. No organomegaly. EXTREMITIES: No clubbing. No cyanosis. LABORATORY DATA: WBC 104.6, hemoglobin 9.9, hematocrit 29.0 and platelet 392. Sodium 142, potassium 4.1, BUN 37, creatinine 0.8, random sugar 108. AST 79, ALT 64, total protein 5.8, albumin 2.4. Calcium 7.5. Chest x-ray done today bibasilar infiltrates. DIAGNOSES: Status post cardiorespiratory arrest, chronic obstructive pulmonary disease, coronary artery disease status post bypass 23 years ago, status post multiple stents, history of hemolytic anemia, elevated white blood count, cardiorespiratory arrest as mentioned and anoxic encephalopathy. PLAN: The patient is scheduled for endoscopic gastrostomy and tracheostomy, and case has been under consideration of Ethics Committee. Recent echo on 01/13/2017 showed ejection fraction 45% to 50%, mild mitral regurgitation, mild tricuspid regurgitation, chronic obstructive pulmonary disease in the past. Chest x-ray, bilateral basal infiltrates. Plan is the patient is getting feeding tube at present. The patient being planned for tracheostomy and gastrostomy feeding tube. The patient on hydralazine 10 mg IV q.6 hours p.r.n. for blood pressure, aspirin 81 daily, Cardizem 60 q.i.d., amiodarone 200 daily. The patient is getting D5W 60 mL an hour, Vibramycin 100 mg IV q.12 hours, insulin as ordered, isosorbide mononitrate 60 daily, metoprolol tartarate 25 b.i.d., Lovenox 40 mg subq daily, meropenem 1 g IV q.8 hours, Protonix 40 IV daily, Solu-Cortef 500 mg IV q.12 hours, labetalol 10 mg IV q.3 hours p.r.n., and Xopenex p.r.n. We will continue present therapy. We will follow with you. Francisca Guan MD
--- NOTE | 2017-01-23 00:27 | PN ---
DATE: 01/22/2017 SUBJECTIVE: The patient is an 86-year-old male, transferred from the Intensive Care Unit earlier today after extubated with the patient now with the Dobhoff feeding tube with his hands restrained, being nonverbal. However, he opens his eyes to command with the patient being treated for respiratory failure, status post cardiac arrest, noted to have hemolytic anemia with history of dementia and electrolyte imbalance. At present, he appears in no acute distress. PHYSICAL EXAMINATION: VITAL SIGNS: Temperature 98, pulse 105, respirations 18, blood pressure 152/74, pulse oximetry 96%. HEENT: Unremarkable with oxygen on high flow. Opens eyes to command. NECK: Supple. HEART: Tachy rate, regular rhythm. LUNGS: Scattered rhonchi. ABDOMEN: Minimally distended, soft. EXTREMITIES: No edema. SKIN: Warm and dry. NEUROLOGIC: Awake and alert responding with open eyes but nonverbal at this time. LABORATORY DATA: The patient's labs were done. White blood cell count of 10,460, hemoglobin 9.9, hematocrit 29.0, platelet count of 392,000. Chem metabolic panel showing a BUN of 37, creatinine of 0.8, AST of 79, ALT of 64. He had a chest x-ray done earlier today. It was read as markedly limited exam for his endotracheal tube and NG tube not appreciated, correlated clinically repeat exam. With a repeat x-ray done at 1:24 in the afternoon showing feeding tube seen in the body of the stomach is in satisfactory position with a repeat chest x-ray done unread at this time. ASSESSMENT: Respiratory failure, status post extubation earlier today, status post cardiac arrest on amiodarone, status post hypoxemic event possibly with neurologic compromise. Brain MRI of the parietal area showing of cortical ischemia. Persistent leukocytosis thought to be a leukemoid reaction with Infectious Disease consultants giving antibiotics as indicated. After conversation with Dr. Walton, we will continue the present medical regimen with the patient to be followed by labs and clinically with prognosis guarded. Labs were done for this patient as reported earlier. Wojciech Wynne MD
[2017-01-23] MEDS: Insulin Reg-LOW-Coverage SC SCH ×4 (01:36→17:33)
[2017-01-23] MEDS: Levalbuterol 0.63 MG/3 ML Inhal Soln UD IH SCH ×4 (01:44→20:43)
[2017-01-23] MEDS: Pantoprazole 40mg/100ml IVPB 40 MG/100 ML BAG IVPB SCH (05:56)
--- NOTE | 2017-01-23 07:52 | RAD ---
HISTORY: dobhoff placement COMPARISON: 01/22/2017 at 1:31 p.m. FINDINGS: LUNGS: No active pulmonary disease. PLEURA: Small right pleural effusion. 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 CARDIOVASCULAR: No cardiomegaly. Feeding tube extends to left upper abdomen. Sternotomy wires noted. Right central venous infusion port. OSSEOUS STRUCTURES: No significant abnormalities. VISUALIZED UPPER ABDOMEN: Normal. OTHER FINDINGS: None. IMPRESSION: Small right pleural effusion. Feeding tube unchanged.
[2017-01-23 08:51] LABS: BASO # 0.96 K/mm3 (0.0-2.0); BASO % 0.9 % (0.0-3.0); GRAN # 84.47 (1.4-6.5); GRAN % 82.3 % (50.0-68.0); HEMATOCRIT 28.8 % (42.0-52.0); LYMPH # 3.8 (1.2-3.4); LYMPH % 3.7 % (22.0-35.0); MEAN CELL VOLUME 97.6 fl (80.0-105.0); MEAN CORPUSCULAR HEMOGLOBIN 32.9 pg (25.0-35.0); MEAN CORPUSCULAR HGB CONC 33.7 g/dl (31.0-37.0); MEAN PLATELET VOLUME 11.8 fl (7.0-11.0); MONO # 13.4 (0.1-0.6); MONO % 13.1 % (1.0-6.0); RED CELL DISTRIBUTION WIDTH 15.8 % (11.5-14.5)
[2017-01-23 09:01] LABS: ALB/GLOB RATIO 0.7 (1.1-1.8); ALKALINE PHOSPHATASE 143 U/L (38-133); ALT/SGPT 71 U/L (7-56); AST/SGOT 75 U/L (15-59); BILIRUBIN,TOTAL 0.5 mg/dL (0.2-1.3); BLOOD UREA NITROGEN 33 mg/dL (7-21); CALCIUM 7.8 mg/dL (8.4-10.5); CARBON DIOXIDE 23 mmol/L (21-33); CHLORIDE 109 mmol/L (98-107); GFR AFRICAN-AMERICAN > 60; GLUCOSE,RANDOM 106 mg/dL (70-110); POTASSIUM 3.4 mmol/L (3.6-5.0); SODIUM 140 mmol/L (132-148); TOTAL PROTEIN 5.6 g/dL (5.8-8.3)
[2017-01-23 09:08] LABS: WHITE BLOOD COUNT 102.7 10^3/ul (4.5-11.0)
[2017-01-23] MEDS: Enoxaparin 40 mg Syringe SC SCH (10:18)
[2017-01-23] MEDS: Nystatin 100,000 Units/gm Topical Pow(15 gm) TOP SCH ×2 (11:09→17:34)
--- NOTE | 2017-01-23 11:12 | CP.PCM.PN ---
<Finn Bailey - Last Filed: 01/23/17 11:06> Subjective - Date & Time of Evaluation Date of Evaluation: 01/23/17 Time of Evaluation: 07:45 - Subjective Subjective: Heme/ onc note for Dr Walton: Pt seen and examined at bedside. No acute events overnight. Pt is currently requiring high flow oxygen. He is awake and following minimal commands. Denies any pain. No Chest pain, sob, or abd pain, n/v/d. Objective - Vital Signs/Intake and Output Vital Signs (last 24 hours): Temp Pulse Resp BP Pulse Ox 98.3 F 101 H 22 145/75 98 01/23/17 08:13 01/23/17 08:13 01/23/17 08:13 01/23/17 08:13 01/23/17 08:13 Intake and Output: 01/23/17 01/23/17 06:59 18:59 Intake Total 1000 Output Total 700 Balance 300 - Medications Medications: Current Medications Acetaminophen (Tylenol 650mg/20.3ml Solution Ud) 650 mg PO Q6H PRN PRN Reason: fever Last Admin: 01/20/17 12:00 Dose: 650 mg Amiodarone HCl (Cordarone) 200 mg PO DAILY [facility] Last Admin: 01/23/17 10:17 Dose: Not Given Aspirin (Aspirin Chewable) 81 mg PO DAILY [facility] Last Admin: 01/23/17 10:17 Dose: Not Given Diltiazem HCl (Cardizem) 60 mg PO QID [facility] Last Admin: 01/23/17 10:17 Dose: Not Given Docusate Sodium (Colace Liquid) 100 mg PO TID [facility] Last Admin: 01/23/17 10:17 Dose: Not Given Enoxaparin Sodium (Lovenox) 40 mg SC DAILY [facility] PRN Reason: Protocol Last Admin: 01/23/17 10:18 Dose: Not Given Hydralazine HCl (Apresoline) 10 mg IVP Q6 PRN PRN Reason: for SBP>170 & or Diastolic>100 Hydrocortisone Sodium Succinate (Solu-Cortef) 50 mg IVP Q12H [facility] Last Admin: 01/22/17 21:27 Dose: 50 mg Dextrose (Dextrose 5% In Water 1000 Ml) 1,000 mls @ 60 mls/hr IV .[id number] [facility] Last Admin: 01/22/17 09:34 Dose: 60 mls/hr Doxycycline Hyclate 100 mg/ (Sodium Chloride) 100 mls @ 100 mls/hr IVPB Q12 [facility] PRN Reason: Protocol Last Admin: 01/22/17 23:03 Dose: 100 mls/hr Pantoprazole Sodium (Protonix 40mg Ivpb) 40 mg in 100 mls @ 200 mls/hr IVPB 0600 [facility] Last Admin: 01/23/17 05:56 Dose: 200 mls/hr Meropenem 1g/NS 100mL IVPB (Meropenem 1g/Ns 100ml Ivpb) 1 gm in 100 mls @ 100 mls/hr IVPB Q8 [facility] PRN Reason: Protocol Stop: 01/29/17 14:01 Last Admin: 01/22/17 21:26 Dose: 100 mls/hr Potassium Chloride (Potassium Chloride 20 Meq/100 Ml) 20 meq in 100 mls @ 50 mls/hr IVPB ONCE ONE Stop: 01/23/17 11:30 Insulin Human Regular (Humulin R Low) 0 units SC Q6 [facility] PRN Reason: Protocol Last Admin: 01/23/17 06:02 Dose: Not Given Isosorbide Mononitrate (Imdur) 60 mg PO DAILY [facility] Last Admin: 01/23/17 10:18 Dose: Not Given Labetalol HCl (Trandate) 10 mg IV Q3H PRN PRN Reason: Systolic Blood Pressure Levalbuterol HCl (Xopenex) 0.63 mg IH [id number] [facility] Last Admin: 01/23/17 08:07 Dose: 0.63 mg Levalbuterol HCl (Xopenex) 0.63 mg IH Q2 PRN PRN Reason: Shortness of Breath Last Admin: 01/14/17 11:25 Dose: 0.63 mg Metoprolol Tartrate (Lopressor) 25 mg PO BID [facility] Last Admin: 01/23/17 10:18 Dose: Not Given Nystatin (Nystop Topical Powder) 0 gm TOP BID [facility] Last Admin: 01/22/17 18:25 Dose: Not Given Sennosides (Senokot Tab) 8.6 mg PO DAILY [facility] Last Admin: 01/23/17 10:23 Dose: Not Given Tamsulosin HCl (Flomax) 0.4 mg PO DAILY [facility] Last Admin: 01/23/17 10:17 Dose: Not Given - Labs Labs: 01/23/17 08:24 01/23/17 08:24 PT 13.7 Seconds (9.9-11.8) H 01/12/17 04:00 INR 1.27 (0.93-1.08) H 01/12/17 04:00 APTT 32.7 Seconds (23.7-30.8) H 01/12/17 04:00 - Constitutional Appears: No Acute Distress - Eye Exam Eye Exam: EOMI, PERRL - ENT Exam ENT Exam: Mucous Membranes Moist - Respiratory Exam Respiratory Exam: Clear to Ausculation Bilateral. absent: Rales, Wheezes - Cardiovascular Exam Cardiovascular Exam: REGULAR RHYTHM, +S1, +S2 - GI/Abdominal Exam GI & Abdominal Exam: Soft. absent: Distended, Tenderness - Extremities Exam Extremities Exam: absent: Calf Tenderness, Pedal Edema - Neurological Exam Neurological Exam: Alert, Awake, Oriented x3 Assessment and Plan - Assessment and Plan (Free Text) Assessment: 86 M with pmh of hemolytic anemia, CAD, COPD, CABG, hx of diverticulitis, gastritis, GERD, BPPH, Asbestosis, presents to the ED with cough and L sided back pain and found to have T12 compression fracture. Pt has Félix positive, hemolytic anemia on prednisone now with a leukocytosis leukomoid rxn vs sepsis vs infection. S/p cardiac arrest and intubated and sedation. He is currently requiring high flow oxygen. - Requiring high flow O2 - Trach not needed at this time - Will f/u regarding speech and swallow and a PEG if needed - Palliative consult - working with family regarding goals of care POA vs advance directives - wbc inc 102.7 - likely leukomoid reaction - flow cytometry of the blood was negative - peripheral smear showed leukomoid reaction - F/u ID recs - cont Doxy and Cristin - Solucortef 50mg BID - MRI Brain - No acute intracranial finding, R mastoiditis - MRA- unremarkable - MRA neck - no stenosis - Cardio - Cont Amio, aspirin, plavix, metoprolol and cardizem - MRI of the thoracic spine - recent compression fracture of T12 with marrow edema anteriorly - CT abdomen showed new compression deformity of T12 and small epidural hemorrhage at this level. rec MRI - CXR- b/l calcified pleural plaques Case and plan was reviewed and discussed in detail with Dr Walton <Rowdy Walton P - Last Filed: 01/24/17 23:17> Objective - Vital Signs/Intake and Output Vital Signs (last 24 hours): Temp Pulse Resp BP Pulse Ox 97.6 F 115 H 20 135/73 98 01/24/17 07:46 01/24/17 10:00 01/24/17 08:13 01/24/17 07:46 01/24/17 07:46 - Labs Labs: 01/24/17 07:30 01/24/17 07:30 PT 13.7 Seconds (9.9-11.8) H 01/12/17 04:00 INR 1.27 (0.93-1.08) H 01/12/17 04:00 APTT 32.7 Seconds (23.7-30.8) H 01/12/17 04:00 Attending/Attestation - Attestation I have personally seen and examined this patient.: Yes I have fully participated in the care of the patient.: Yes I have reviewed all pertinent clinical information, including history, physical exam and plan: Yes
--- NOTE | 2017-01-23 11:17 | CP.PCM.PN ---
Addendum entered and electronically signed by Mallory Chambers DO 01/23/17 11:34 : on Merrem and doxycycline Original Note: <Mallory Chambers - Last Filed: 01/23/17 11:28> Subjective - Date & Time of Evaluation Date of Evaluation: 01/23/17 Time of Evaluation: 11:14 - Subjective Subjective: Gastroenterology Fellow/PGY5 Progress Note Patient oriented to person. Denies abdominal pain. Nursing notes Dubhoff replaced after being pulled by patient overnight. Multiple soft bowel movements overnight. 12-point review of systems limited given orientation to person only after recent extubation. Objective - Vital Signs/Intake and Output Vital Signs (last 24 hours): Temp Pulse Resp BP Pulse Ox 98.3 F 101 H 22 145/75 98 01/23/17 08:13 01/23/17 08:13 01/23/17 08:13 01/23/17 08:13 01/23/17 08:13 Intake and Output: 01/23/17 01/23/17 06:59 18:59 Intake Total 1000 Output Total 700 Balance 300 - Medications Medications: Current Medications Acetaminophen (Tylenol 650mg/20.3ml Solution Ud) 650 mg PO Q6H PRN PRN Reason: fever Last Admin: 01/20/17 12:00 Dose: 650 mg Amiodarone HCl (Cordarone) 200 mg PO DAILY [facility] Last Admin: 01/23/17 10:17 Dose: Not Given Aspirin (Aspirin Chewable) 81 mg PO DAILY [facility] Last Admin: 01/23/17 10:17 Dose: Not Given Diltiazem HCl (Cardizem) 60 mg PO QID [facility] Last Admin: 01/23/17 10:17 Dose: Not Given Docusate Sodium (Colace Liquid) 100 mg PO TID [facility] Last Admin: 01/23/17 10:17 Dose: Not Given Enoxaparin Sodium (Lovenox) 40 mg SC DAILY [facility] PRN Reason: Protocol Last Admin: 01/23/17 10:18 Dose: Not Given Hydralazine HCl (Apresoline) 10 mg IVP Q6 PRN PRN Reason: for SBP>170 & or Diastolic>100 Hydrocortisone Sodium Succinate (Solu-Cortef) 50 mg IVP Q12H [facility] Last Admin: 01/23/17 11:08 Dose: 50 mg Dextrose (Dextrose 5% In Water 1000 Ml) 1,000 mls @ 60 mls/hr IV .[id number] [facility] Last Admin: 01/22/17 09:34 Dose: 60 mls/hr Doxycycline Hyclate 100 mg/ (Sodium Chloride) 100 mls @ 100 mls/hr IVPB Q12 [facility] PRN Reason: Protocol Last Admin: 01/23/17 11:09 Dose: 100 mls/hr Pantoprazole Sodium (Protonix 40mg Ivpb) 40 mg in 100 mls @ 200 mls/hr IVPB 0600 [facility] Last Admin: 01/23/17 05:56 Dose: 200 mls/hr Meropenem 1g/NS 100mL IVPB (Meropenem 1g/Ns 100ml Ivpb) 1 gm in 100 mls @ 100 mls/hr IVPB Q8 [facility] PRN Reason: Protocol Stop: 01/29/17 14:01 Last Admin: 01/22/17 21:26 Dose: 100 mls/hr Potassium Chloride (Potassium Chloride 20 Meq/100 Ml) 20 meq in 100 mls @ 50 mls/hr IVPB ONCE ONE Stop: 01/23/17 11:30 Last Admin: 01/23/17 11:08 Dose: 50 mls/hr Insulin Human Regular (Humulin R Low) 0 units SC Q6 [facility] PRN Reason: Protocol Last Admin: 01/23/17 06:02 Dose: Not Given Isosorbide Mononitrate (Imdur) 60 mg PO DAILY [facility] Last Admin: 01/23/17 10:18 Dose: Not Given Labetalol HCl (Trandate) 10 mg IV Q3H PRN PRN Reason: Systolic Blood Pressure Levalbuterol HCl (Xopenex) 0.63 mg IH [id number] [facility] Last Admin: 01/23/17 08:07 Dose: 0.63 mg Levalbuterol HCl (Xopenex) 0.63 mg IH Q2 PRN PRN Reason: Shortness of Breath Last Admin: 01/14/17 11:25 Dose: 0.63 mg Metoprolol Tartrate (Lopressor) 25 mg PO BID [facility] Last Admin: 01/23/17 10:18 Dose: Not Given Nystatin (Nystop Topical Powder) 0 gm TOP BID [facility] Last Admin: 01/23/17 11:09 Dose: 1 applic Sennosides (Senokot Tab) 8.6 mg PO DAILY [facility] Last Admin: 01/23/17 10:23 Dose: Not Given Tamsulosin HCl (Flomax) 0.4 mg PO DAILY [facility] Last Admin: 01/23/17 10:17 Dose: Not Given - Labs Labs: 01/23/17 08:24 01/23/17 08:24 PT 13.7 Seconds (9.9-11.8) H 01/12/17 04:00 INR 1.27 (0.93-1.08) H 01/12/17 04:00 APTT 32.7 Seconds (23.7-30.8) H 01/12/17 04:00 - Constitutional Appears: Non-toxic, No Acute Distress, Other - Head Exam Head Exam: ATRAUMATIC, NORMOCEPHALIC - Eye Exam Eye Exam: EOMI, PERRL Pupil Exam: PERRL. absent: Miosis, Mydriatic - ENT Exam ENT Exam: Mucous Membranes Dry, Normal Oropharynx - Neck Exam Neck Exam: Full ROM, Normal Inspection - Respiratory Exam Respiratory Exam: Clear to Ausculation Bilateral. absent: Rales, Rhonchi, Wheezes - Cardiovascular Exam Cardiovascular Exam: RRR, +S1, +S2. absent: Gallop, Rubs - GI/Abdominal Exam GI & Abdominal Exam: Soft, Normal Bowel Sounds. absent: Distended, Firm, Guarding, Rigid, Tenderness, Organomegaly, Rebound - Extremities Exam Additional comments: 1-2+ pitting edema - Neurological Exam Neurological Exam: Alert, Awake - Psychiatric Exam Psychiatric exam: Normal Affect, Normal Mood - Skin Skin Exam: Dry, Intact, Normal Color, Warm Assessment and Plan - Assessment and Plan (Free Text) Assessment: 86 year old male with history of Asbestosis exposure, CAD s/p stents and CABG on Plavix, COPD, hemolytic anemia s/p infusions on prednisone with chronic leukocytosis presenting with left back pain. Active treatment of ventilator dependent respiratory failure 2/2 Vfib arrest with ROSC on 01/12 with concern for hypoxic brain injury on EEG, with initial diagnosis of T12 compression fracture and sepsis 2/2 HCAP complicated by leukemoid reaction. GI consultation for evaluation of PEG placement. Prior EGD 2010 showed hiatal hernia and Gastritis. Unable to confirm prior colonoscopy as patient is intubated. Plan: >failed speech swallow evaluation >continue Dubhoff nutritional support >on hi flow oxygen >on cefepime and doxycycline >Hem/Onc managing leukocytosis- follow up recommendations -pending Jak2 mutation, BCR/abl >recommend restarting Plavix >continue cardiopulmonary optimization on hi-flow oxygen and treatment of HCAP >re-assess clinical status on Friday for PEG placement indication <Nestor Dos Santos - Last Filed: 01/23/17 12:14> Objective - Vital Signs/Intake and Output Vital Signs (last 24 hours): Temp Pulse Resp BP Pulse Ox 98.3 F 101 H 22 145/75 98 01/23/17 08:13 01/23/17 08:13 01/23/17 08:13 01/23/17 08:13 01/23/17 08:13 Intake and Output: 01/23/17 01/23/17 06:59 18:59 Intake Total 1000 Output Total 700 Balance 300 - Medications Medications: Current Medications Acetaminophen (Tylenol 650mg/20.3ml Solution Ud) 650 mg PO Q6H PRN PRN Reason: fever Last Admin: 01/20/17 12:00 Dose: 650 mg Amiodarone HCl (Cordarone) 200 mg PO DAILY [facility] Last Admin: 01/23/17 10:17 Dose: Not Given Aspirin (Aspirin Chewable) 81 mg PO DAILY [facility] Last Admin: 01/23/17 10:17 Dose: Not Given Diltiazem HCl (Cardizem) 60 mg PO QID [facility] Last Admin: 01/23/17 10:17 Dose: Not Given Docusate Sodium (Colace Liquid) 100 mg PO TID [facility] Last Admin: 01/23/17 10:17 Dose: Not Given Enoxaparin Sodium (Lovenox) 40 mg SC DAILY [facility] PRN Reason: Protocol Last Admin: 01/23/17 10:18 Dose: Not Given Hydralazine HCl (Apresoline) 10 mg IVP Q6 PRN PRN Reason: for SBP>170 & or Diastolic>100 Hydrocortisone Sodium Succinate (Solu-Cortef) 50 mg IVP Q12H [facility] Last Admin: 01/23/17 11:08 Dose: 50 mg Dextrose (Dextrose 5% In Water 1000 Ml) 1,000 mls @ 60 mls/hr IV .[id number] [facility] Last Admin: 01/22/17 09:34 Dose: 60 mls/hr Doxycycline Hyclate 100 mg/ (Sodium Chloride) 100 mls @ 100 mls/hr IVPB Q12 [facility] PRN Reason: Protocol Last Admin: 01/23/17 11:09 Dose: 100 mls/hr Pantoprazole Sodium (Protonix 40mg Ivpb) 40 mg in 100 mls @ 200 mls/hr IVPB 0600 [facility] Last Admin: 01/23/17 05:56 Dose: 200 mls/hr Meropenem 1g/NS 100mL IVPB (Meropenem 1g/Ns 100ml Ivpb) 1 gm in 100 mls @ 100 mls/hr IVPB Q8 [facility] PRN Reason: Protocol Stop: 01/29/17 14:01 Last Admin: 01/22/17 21:26 Dose: 100 mls/hr Insulin Human Regular (Humulin R Low) 0 units SC Q6 [facility] PRN Reason: Protocol Last Admin: 01/23/17 12:09 Dose: Not Given Isosorbide Mononitrate (Imdur) 60 mg PO DAILY [facility] Last Admin: 01/23/17 10:18 Dose: Not Given Labetalol HCl (Trandate) 10 mg IV Q3H PRN PRN Reason: Systolic Blood Pressure Levalbuterol HCl (Xopenex) 0.63 mg IH [id number] [facility] Last Admin: 01/23/17 08:07 Dose: 0.63 mg Levalbuterol HCl (Xopenex) 0.63 mg IH Q2 PRN PRN Reason: Shortness of Breath Last Admin: 01/14/17 11:25 Dose: 0.63 mg Metoprolol Tartrate (Lopressor) 25 mg PO BID [facility] Last Admin: 01/23/17 10:18 Dose: Not Given Nystatin (Nystop Topical Powder) 0 gm TOP BID [facility] Last Admin: 01/23/17 11:09 Dose: 1 applic Sennosides (Senokot Tab) 8.6 mg PO DAILY [facility] Last Admin: 01/23/17 10:23 Dose: Not Given Tamsulosin HCl (Flomax) 0.4 mg PO DAILY [facility] Last Admin: 01/23/17 10:17 Dose: Not Given - Labs Labs: 01/23/17 08:24 01/23/17 08:24 PT 13.7 Seconds (9.9-11.8) H 01/12/17 04:00 INR 1.27 (0.93-1.08) H 01/12/17 04:00 APTT 32.7 Seconds (23.7-30.8) H 01/12/17 04:00 Attending/Attestation - Attestation I have personally seen and examined this patient.: Yes I have fully participated in the care of the patient.: Yes I have reviewed all pertinent clinical information, including history, physical exam and plan: Yes Notes (Text): 01/23/17 12:13 86 year old male with h/o Asbestosis exposure, CAD s/p CABG/Stents, COPD, Hemolytic anemia in ICU after cardiac arrest, now recovering, we are consutled for PEG. 1. Dysphagia Plan: -currently patient unable to eat due to confusion/dysphagia -dobhoff in place, receiving tube feeds -remains on high flow oxygen -speech re-evaluation pending -may eventually need peg, but would not place right now due to poor respiratory status and he currently has enteral access/nutrition -will monitor his clinical course
--- NOTE | 2017-01-23 11:27 | CP.PCM.PN ---
Subjective - Date & Time of Evaluation Date of Evaluation: 01/23/17 Time of Evaluation: 09:20 - Subjective Subjective: Patient continues to be on high-flow oxygen, awake but at times confused. No fevers overnight. Objective - Vital Signs/Intake and Output Vital Signs (last 24 hours): Temp Pulse Resp BP Pulse Ox 98.0 F 107 H 182 H 141/77 96 01/22/17 16:22 01/22/17 21:23 01/22/17 20:54 01/22/17 21:23 01/22/17 16:22 Intake and Output: 01/22/17 01/23/17 18:59 06:59 Intake Total 0 Output Total 300 Balance -300 - Medications Medications: Current Medications Acetaminophen (Tylenol 650mg/20.3ml Solution Ud) 650 mg PO Q6H PRN PRN Reason: fever Last Admin: 01/20/17 12:00 Dose: 650 mg Amiodarone HCl (Cordarone) 200 mg PO DAILY [facility] Last Admin: 01/22/17 09:23 Dose: Not Given Aspirin (Aspirin Chewable) 81 mg PO DAILY [facility] Last Admin: 01/22/17 09:22 Dose: Not Given Diltiazem HCl (Cardizem) 60 mg PO QID [facility] Last Admin: 01/22/17 21:23 Dose: 60 mg Docusate Sodium (Colace Liquid) 100 mg PO TID [facility] Last Admin: 01/22/17 18:24 Dose: Not Given Enoxaparin Sodium (Lovenox) 40 mg SC DAILY [facility] PRN Reason: Protocol Last Admin: 01/22/17 09:33 Dose: 40 mg Hydralazine HCl (Apresoline) 10 mg IVP Q6 PRN PRN Reason: for SBP>170 & or Diastolic>100 Hydrocortisone Sodium Succinate (Solu-Cortef) 50 mg IVP Q12H [facility] Last Admin: 01/22/17 21:27 Dose: 50 mg Dextrose (Dextrose 5% In Water 1000 Ml) 1,000 mls @ 60 mls/hr IV .[id number] [facility] Last Admin: 01/22/17 09:34 Dose: 60 mls/hr Doxycycline Hyclate 100 mg/ (Sodium Chloride) 100 mls @ 100 mls/hr IVPB Q12 [facility] PRN Reason: Protocol Last Admin: 01/22/17 23:03 Dose: 100 mls/hr Pantoprazole Sodium (Protonix 40mg Ivpb) 40 mg in 100 mls @ 200 mls/hr IVPB 0600 [facility] Last Admin: 01/23/17 05:56 Dose: 200 mls/hr Meropenem 1g/NS 100mL IVPB (Meropenem 1g/Ns 100ml Ivpb) 1 gm in 100 mls @ 100 mls/hr IVPB Q8 [facility] PRN Reason: Protocol Stop: 01/29/17 14:01 Last Admin: 01/22/17 21:26 Dose: 100 mls/hr Insulin Human Regular (Humulin R Low) 0 units SC Q6 [facility] PRN Reason: Protocol Last Admin: 01/23/17 06:02 Dose: Not Given Isosorbide Mononitrate (Imdur) 60 mg PO DAILY [facility] Last Admin: 01/22/17 09:24 Dose: Not Given Labetalol HCl (Trandate) 10 mg IV Q3H PRN PRN Reason: Systolic Blood Pressure Levalbuterol HCl (Xopenex) 0.63 mg IH [id number] [facility] Last Admin: 01/23/17 01:44 Dose: 0.63 mg Levalbuterol HCl (Xopenex) 0.63 mg IH Q2 PRN PRN Reason: Shortness of Breath Last Admin: 01/14/17 11:25 Dose: 0.63 mg Metoprolol Tartrate (Lopressor) 25 mg PO BID [facility] Last Admin: 01/22/17 18:25 Dose: Not Given Nystatin (Nystop Topical Powder) 0 gm TOP BID [facility] Last Admin: 01/22/17 18:25 Dose: Not Given Sennosides (Senokot Tab) 8.6 mg PO DAILY [facility] Last Admin: 01/22/17 09:24 Dose: Not Given Tamsulosin HCl (Flomax) 0.4 mg PO DAILY [facility] Last Admin: 01/22/17 09:24 Dose: Not Given - Labs Labs: 01/22/17 05:55 01/22/17 05:55 PT 13.7 Seconds (9.9-11.8) H 01/12/17 04:00 INR 1.27 (0.93-1.08) H 01/12/17 04:00 APTT 32.7 Seconds (23.7-30.8) H 01/12/17 04:00 - Constitutional Appears: Other (on high flow oxygen) - Head Exam Head Exam: NORMAL INSPECTION - Neck Exam Neck Exam: absent: Meningismus - Respiratory Exam Respiratory Exam: Decreased Breath Sounds - Cardiovascular Exam Cardiovascular Exam: +S1, +S2 - GI/Abdominal Exam GI & Abdominal Exam: Soft. absent: Tenderness Assessment and Plan - Assessment and Plan (Free Text) Plan: Assessment S/P ventilator-dependent respiratory failure - sepsis from healthcare- associated pneumonia (new onset) with Stenotrophomonas, clinically improving and now extubated S/P cardiac arrest, etiology to be determined, but should consider myocardial infarction or cardiac arrhythmia Coagulase negative staph in blood cx, R/O port-related bacteremia right sided mastoiditis noted on the MRI of the head T12 compression fracture CAD S/P CABG COPD history of asbestosis history of Coomb's positive hemolytic anemia history of diverticulitis gastritis GERD benign prostatic hyperplasia Plan completed Daptomycin 14 days; repeat blood cx are negative; echocardiogram does not show vegetations continue Merrem (day 11) for the mastoiditis but will extend it since the patient has pneumonia - will also continue Doxycycline (day 4 ) for treatment of pneumonia - Stenotrophomonas is sensitive to Ceftazidime, would make it sensitive to Merrem as well - will target 4-7 days of antibiotics for pneumonia will continue to monitor clinically Overall prognosis is poor
--- NOTE | 2017-01-23 13:34 | PN ---
SUBJECTIVE: The patient is seen this morning. He is in room 362, bed 2. The patient was transferred out of critical care unit after extubation. The patient is on nasal cannula oxygen at 60% of O2. He also has Dobhoff tube feeding provided. The patient is conscious, seems to be able to open his eyes and follow commands. The patient is awake, able to say some words, but it is difficulty to make out what he is saying. PHYSICAL EXAMINATION: VITAL SIGNS: He has a pulse of 101, blood pressure is 145/75, respirations 22. The patient's O2 sat 98% on 60% oxygen. At this time, the patient's oxygen reduced to 40%. LUNGS: Bilateral crepitations heard basally. HEART: Normal sinus rhythm, sinus tachycardia ABDOMEN: Soft. No tenderness. 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 The patient had a cardiac arrest with unresponsive state for a couple of days prior to the patient's aggressive treatment plan had improved his condition. Currently, the patient is dependent on tube feeding. The patient is on assist device with oxygen by nasal cannula. MEDICATIONS: The patient's medications will be continued, The patient is on hydroxyzine IV for control of blood pressure, Cardizem 60 mg four times a day by Dobhoff tube, amiodarone 200 mg daily. The patient is on dextrose and insulin coverage to cover the dextrose solution, Flomax, isosorbide 60 mg daily. The patient is also on Lovenox 40 mg subcu daily, antibiotics, meropenem, Nystatin, and pantoprazole 40 mg daily. PLAN: The patient's clinical condition is improved from what it was in the past few days and he is still dependent on Solu-medrol and also all medications to maintain his clinical condition. We will follow up. He is still in critical phase of his care. David Pavon MD MTDNubia
[2017-01-23] MEDS: Meropenem 1g/NS 100mL IVPB 1 GM/100 ML PIGGYBACK IVPB SCH ×2 (13:53→22:47)
[2017-01-23] MEDS ORDERED: Potassium Chloride 20 mEq/15 ml LIQ UD PO STA (18:11)
--- NOTE | 2017-01-23 22:45 | PN ---
DATE: 01/23/2017 LOCATION: The patient in room 362, bed 2. REASON FOR CONSULTATION AND FOLLOWUP: Status post CPR, status post cardiac arrest, possible anoxic encephalopathy. SUBJECTIVE: The patient is lying in bed comfortably without any respiratory distress. PHYSICAL EXAMINATION VITAL SIGNS: Blood pressure 145/75, respirations 22, pulse 101, and temperature 98.3. HEENT: Head is normocephalic. Eyes; pupils are normal. Conjunctiva slightly pale. NECK: JVP low. Carotids equal. THORAX: AP diameter normal. LUNGS: No rales. CARDIOVASCULAR: S1 and S2. ABDOMEN: Protuberant, no organomegaly. EXTREMITIES: No clubbing, no cyanosis. LABORATORY DATA: WBC 102.7, hemoglobin 9.7, hematocrit 28.8 and platelet 431. Sodium 140, potassium 3.4, BUN 33, creatinine 0.9 and sugar 165. AST 75, ALT 71 and alkaline phosphatase 143. Total protein 5.6 and albumin 2.4. DIAGNOSES: Status post cardiorespiratory arrest, chronic obstructive pulmonary disease, coronary artery disease, status post bypass 23 years ago, status post multiple stents, history of hemolytic anemia and elevated white cell count, possible anoxic encephalopathy. PLAN: The patient had Dobhoff tube and the patient on nasal cannula for oxygen. Echo on 01/13/2017, showed rejection fraction 45%-50% mild mitral regurgitation, mild tricuspid regurgitation, chronic obstructive pulmonary disease. Chest x-ray; bilateral basal infiltrates, hypoproteinemia, malnutrition. The patient on aspirin 81 daily, diltiazem 60 q.i.d., amiodarone 200 daily, Flomax 0.4 daily, isosorbide mononitrate 60 daily, metoprolol tartrate 25 b.i.d., Lovenox 40 subQ daily. The patient's potassium is low, so patient received 20 mEq potassium today, Solu-Cortef 50 mg IV q.12 hours, Xopenex nebulizer therapy. We will given another 20 mEq liquid potassium through feeding tube today and repeat labs in the morning. Francisca Guan MD
[2017-01-24] MEDS: Insulin Reg-LOW-Coverage SC SCH ×3 (00:46→11:58)
[2017-01-24] MEDS: Levalbuterol 0.63 MG/3 ML Inhal Soln UD IH SCH ×3 (02:19→13:33)
[2017-01-24] MEDS: Pantoprazole 40mg/100ml IVPB 40 MG/100 ML BAG IVPB SCH (05:10)
[2017-01-24] MEDS: Meropenem 1g/NS 100mL IVPB 1 GM/100 ML PIGGYBACK IVPB SCH (05:10)
[2017-01-24 07:47] VITALS: BP 135/73; TEMP 97.6; O2SAT 98
[2017-01-24 07:51] LABS: MEAN CELL VOLUME 95.6 fl (80.0-105.0); MEAN CORPUSCULAR HEMOGLOBIN 32.1 pg (25.0-35.0); MEAN CORPUSCULAR HGB CONC 33.6 g/dl (31.0-37.0); MEAN PLATELET VOLUME 11.4 fl (7.0-11.0); RED CELL DISTRIBUTION WIDTH 15.7 % (11.5-14.5)
[2017-01-24 07:53] LABS: WHITE BLOOD COUNT 104.2 10^3/ul (4.5-11.0)
[2017-01-24 08:06] LABS: ALB/GLOB RATIO 0.7 (1.1-1.8); ALKALINE PHOSPHATASE 137 U/L (38-133); ALT/SGPT 67 U/L (7-56); AST/SGOT 90 U/L (15-59); BILIRUBIN,TOTAL 0.4 mg/dL (0.2-1.3); BLOOD UREA NITROGEN 30 mg/dL (7-21); CALCIUM 7.4 mg/dL (8.4-10.5); CARBON DIOXIDE 24 mmol/L (21-33); CHLORIDE 110 mmol/L (98-107); GFR AFRICAN-AMERICAN > 60; GLUCOSE,RANDOM 111 mg/dL (70-110); POTASSIUM 3.6 mmol/L (3.6-5.0); SODIUM 139 mmol/L (132-148); TOTAL PROTEIN 5.3 g/dL (5.8-8.3)
--- NOTE | 2017-01-24 08:13 | CP.PCM.PN ---
<ReyesMallory - Last Filed: 01/24/17 10:40> Subjective - Date & Time of Evaluation Date of Evaluation: 01/24/17 Time of Evaluation: 08:10 - Subjective Subjective: Gastroenterology Fellow/PGY5 Progress Note Patient oriented to person only. Denies abdominal pain. Nursing notes no acute events overnight. Tolerated minimal of puree diet for dinner. continued tube feeds overnight via Dubhoff. 12-point review of systems limited given orientation to person only. Objective - Vital Signs/Intake and Output Vital Signs (last 24 hours): Temp Pulse Resp BP Pulse Ox 97.6 F 92 H 22 135/73 98 01/24/17 07:46 01/24/17 07:46 01/24/17 07:46 01/24/17 07:46 01/24/17 07:46 Intake and Output: 01/24/17 01/24/17 06:59 18:59 Intake Total 120 Output Total 600 Balance -480 - Medications Medications: Current Medications Acetaminophen (Tylenol 650mg/20.3ml Solution Ud) 650 mg PO Q6H PRN PRN Reason: fever Last Admin: 01/20/17 12:00 Dose: 650 mg Amiodarone HCl (Cordarone) 200 mg PO DAILY [facility] Last Admin: 01/23/17 10:17 Dose: Not Given Aspirin (Aspirin Chewable) 81 mg PO DAILY [facility] Last Admin: 01/23/17 10:17 Dose: Not Given Diltiazem HCl (Cardizem) 60 mg PO QID [facility] Last Admin: 01/23/17 23:08 Dose: 60 mg Docusate Sodium (Colace Liquid) 100 mg PO TID [facility] Last Admin: 01/23/17 17:33 Dose: Not Given Enoxaparin Sodium (Lovenox) 40 mg SC DAILY [facility] PRN Reason: Protocol Last Admin: 01/23/17 10:18 Dose: Not Given Hydralazine HCl (Apresoline) 10 mg IVP Q6 PRN PRN Reason: for SBP>170 & or Diastolic>100 Hydrocortisone Sodium Succinate (Solu-Cortef) 50 mg IVP Q12H [facility] Last Admin: 01/23/17 23:14 Dose: 50 mg Dextrose (Dextrose 5% In Water 1000 Ml) 1,000 mls @ 60 mls/hr IV .[id number] [facility] Last Admin: 01/24/17 04:34 Dose: 60 mls/hr Doxycycline Hyclate 100 mg/ (Sodium Chloride) 100 mls @ 100 mls/hr IVPB Q12 YESSI PRN Reason: Protocol Last Admin: 01/23/17 22:38 Dose: 100 mls/hr Pantoprazole Sodium (Protonix 40mg Ivpb) 40 mg in 100 mls @ 200 mls/hr IVPB 0600 [facility] Last Admin: 01/24/17 05:10 Dose: 200 mls/hr Meropenem 1g/NS 100mL IVPB (Meropenem 1g/Ns 100ml Ivpb) 1 gm in 100 mls @ 100 mls/hr IVPB Q8 [facility] PRN Reason: Protocol Stop: 01/29/17 14:01 Last Admin: 01/24/17 05:10 Dose: 100 mls/hr Insulin Human Regular (Humulin R Low) 0 units SC Q6 YESSI PRN Reason: Protocol Last Admin: 01/24/17 05:23 Dose: 1 units Isosorbide Mononitrate (Imdur) 60 mg PO DAILY [facility] Last Admin: 01/23/17 10:18 Dose: Not Given Labetalol HCl (Trandate) 10 mg IV Q3H PRN PRN Reason: Systolic Blood Pressure Levalbuterol HCl (Xopenex) 0.63 mg IH [id number] [facility] Last Admin: 01/24/17 08:08 Dose: 0.63 mg Levalbuterol HCl (Xopenex) 0.63 mg IH Q2 PRN PRN Reason: Shortness of Breath Last Admin: 01/14/17 11:25 Dose: 0.63 mg Metoprolol Tartrate (Lopressor) 25 mg PO BID [facility] Last Admin: 01/23/17 17:34 Dose: Not Given Nystatin (Nystop Topical Powder) 0 gm TOP BID [facility] Last Admin: 01/23/17 17:34 Dose: 1 applic Sennosides (Senokot Tab) 8.6 mg PO DAILY [facility] Last Admin: 01/23/17 10:23 Dose: Not Given Tamsulosin HCl (Flomax) 0.4 mg PO DAILY [facility] Last Admin: 01/23/17 10:17 Dose: Not Given - Labs Labs: 01/24/17 07:30 01/24/17 07:30 PT 13.7 Seconds (9.9-11.8) H 01/12/17 04:00 INR 1.27 (0.93-1.08) H 01/12/17 04:00 APTT 32.7 Seconds (23.7-30.8) H 01/12/17 04:00 - Constitutional Appears: Non-toxic, No Acute Distress - Head Exam Head Exam: ATRAUMATIC, NORMOCEPHALIC - Eye Exam Eye Exam: EOMI, PERRL Pupil Exam: PERRL. absent: Miosis, Mydriatic - ENT Exam ENT Exam: Mucous Membranes Moist, Normal Oropharynx Additional comments: left nares Dubhoff in place - Neck Exam Neck Exam: Normal Inspection - Respiratory Exam Respiratory Exam: Rhonchi, Wheezes - Cardiovascular Exam Cardiovascular Exam: RRR, +S1, +S2. absent: Gallop, Rubs - GI/Abdominal Exam GI & Abdominal Exam: Soft, Normal Bowel Sounds. absent: Distended, Firm, Guarding, Rigid, Tenderness, Organomegaly, Rebound - Extremities Exam Additional comments: 1-2+ B/L pitting edema - Neurological Exam Neurological Exam: Alert, Awake - Psychiatric Exam Psychiatric exam: Normal Affect, Normal Mood - Skin Skin Exam: Dry, Intact, Normal Color, Warm Assessment and Plan - Assessment and Plan (Free Text) Assessment: 86 year old male with history of Asbestosis exposure, CAD s/p stents and CABG on Plavix, COPD, hemolytic anemia s/p infusions on prednisone with chronic leukocytosis presenting with left back pain. Active treatment of ventilator dependent respiratory failure 2/2 Vfib arrest with ROSC on 01/12 with concern for hypoxic brain injury on EEG, with initial diagnosis of T12 compression fracture and sepsis 2/2 HCAP complicated by leukemoid reaction. GI consultation for evaluation of PEG placement. Prior EGD 2010 showed hiatal hernia and Gastritis. Unable to confirm prior colonoscopy as patient is intubated. Plan: >speech swallow evaluation- puree diet >calorie count >continue Dubhoff nutritional support >on Meropenem and doxycycline for HCAP >recommend restarting Plavix >continue cardiopulmonary optimization and monitor calorie count for PEG placement indication >planned for transfer to LTAC today, nutritional status management chad lbe continued at the facility <Anatoliy Mittal - Last Filed: 01/24/17 11:38> Objective - Vital Signs/Intake and Output Vital Signs (last 24 hours): Temp Pulse Resp BP Pulse Ox 97.6 F 92 H 20 135/73 98 01/24/17 07:46 01/24/17 07:46 01/24/17 08:13 01/24/17 07:46 01/24/17 07:46 Intake and Output: 01/24/17 01/24/17 06:59 18:59 Intake Total 120 Output Total 600 Balance -480 - Medications Medications: Current Medications Acetaminophen (Tylenol 650mg/20.3ml Solution Ud) 650 mg PO Q6H PRN PRN Reason: fever Last Admin: 01/20/17 12:00 Dose: 650 mg Amiodarone HCl (Cordarone) 200 mg PO DAILY [facility] Last Admin: 01/24/17 10:32 Dose: Not Given Aspirin (Aspirin Chewable) 81 mg PO DAILY [facility] Last Admin: 01/24/17 10:32 Dose: Not Given Diltiazem HCl (Cardizem) 60 mg PO QID [facility] Last Admin: 01/24/17 10:32 Dose: Not Given Docusate Sodium (Colace Liquid) 100 mg PO TID [facility] Last Admin: 01/24/17 10:32 Dose: Not Given Enoxaparin Sodium (Lovenox) 40 mg SC DAILY [facility] PRN Reason: Protocol Last Admin: 01/24/17 10:31 Dose: 40 mg Hydralazine HCl (Apresoline) 10 mg IVP Q6 PRN PRN Reason: for SBP>170 & or Diastolic>100 Hydrocortisone Sodium Succinate (Solu-Cortef) 50 mg IVP Q12H [facility] Last Admin: 01/24/17 10:30 Dose: 50 mg Dextrose (Dextrose 5% In Water 1000 Ml) 1,000 mls @ 60 mls/hr IV .[id number] [facility] Last Admin: 01/24/17 04:34 Dose: 60 mls/hr Doxycycline Hyclate 100 mg/ (Sodium Chloride) 100 mls @ 100 mls/hr IVPB Q12 YESSI PRN Reason: Protocol Last Admin: 01/24/17 10:33 Dose: 100 mls/hr Pantoprazole Sodium (Protonix 40mg Ivpb) 40 mg in 100 mls @ 200 mls/hr IVPB 0600 [facility] Last Admin: 01/24/17 05:10 Dose: 200 mls/hr Meropenem 1g/NS 100mL IVPB (Meropenem 1g/Ns 100ml Ivpb) 1 gm in 100 mls @ 100 mls/hr IVPB Q8 YESSI PRN Reason: Protocol Stop: 01/29/17 14:01 Last Admin: 01/24/17 05:10 Dose: 100 mls/hr Insulin Human Regular (Humulin R Low) 0 units SC Q6 YESSI PRN Reason: Protocol Last Admin: 01/24/17 05:23 Dose: 1 units Isosorbide Mononitrate (Imdur) 60 mg PO DAILY [facility] Last Admin: 01/24/17 10:32 Dose: Not Given Labetalol HCl (Trandate) 10 mg IV Q3H PRN PRN Reason: Systolic Blood Pressure Levalbuterol HCl (Xopenex) 0.63 mg IH [id number] [facility] Last Admin: 01/24/17 08:08 Dose: 0.63 mg Levalbuterol HCl (Xopenex) 0.63 mg IH Q2 PRN PRN Reason: Shortness of Breath Last Admin: 01/14/17 11:25 Dose: 0.63 mg Metoprolol Tartrate (Lopressor) 25 mg PO BID [facility] Last Admin: 01/24/17 10:32 Dose: Not Given Nystatin (Nystop Topical Powder) 0 gm TOP BID [facility] Last Admin: 01/24/17 10:32 Dose: 1 applic Sennosides (Senokot Tab) 8.6 mg PO DAILY [facility] Last Admin: 01/24/17 10:33 Dose: Not Given Tamsulosin HCl (Flomax) 0.4 mg PO DAILY [facility] Last Admin: 01/24/17 10:32 Dose: Not Given - Labs Labs: 01/24/17 07:30 01/24/17 07:30 PT 13.7 Seconds (9.9-11.8) H 01/12/17 04:00 INR 1.27 (0.93-1.08) H 01/12/17 04:00 APTT 32.7 Seconds (23.7-30.8) H 01/12/17 04:00 Attending/Attestation - Attestation I have personally seen and examined this patient.: Yes I have fully participated in the care of the patient.: Yes I have reviewed all pertinent clinical information, including history, physical exam and plan: Yes Notes (Text): 01/24/17 11:33 I have seen and examined patient with GI fellow. No acute events overnight, he is tolerating NGT feeding without difficulty, still not able to consume oral diet appropriately even with attempted assistance as per nursing staff. No reported abdominal pain, nausea, vomiting, fever/chills. Review of vitals from today are normal, patient still requiring high flow oxygen delivery. CAD / CABG - recent VFib cardiac arrest COPD Hemolytic anemia Pneumonia Dysphagia - Patient has been cleared to attempt puree consistency diet, however he remains a significant aspiration risk. Maintain strict precautions with head of bed elevation during feeding. - Continue with antibiotic therapy as per medical team - Continue with calorie count - Patient scheduled for transfer to LTAC facility today, continue to monitor patient. He may require gastrostomy placement if he is not able to adequately maintain caloric intake and nutritional requirements and if family agreeable. This can be arranged as outpatient. Will sign off case, please reconsult as necessary, thank you.
[2017-01-24 08:14] VITALS: RESP 20
[2017-01-24] MEDS: Enoxaparin 40 mg Syringe SC SCH (10:31)
[2017-01-24] MEDS: Nystatin 100,000 Units/gm Topical Pow(15 gm) TOP SCH (10:32)
--- NOTE | 2017-01-24 10:52 | CP.PCM.PN ---
<Finn Bailey - Last Filed: 01/24/17 14:01> Subjective - Date & Time of Evaluation Date of Evaluation: 01/24/17 Time of Evaluation: 07:00 - Subjective Subjective: Heme/ onc note for Dr Walton: Pt seen and examined at bedside. No acute events overnight. He is still requiring high flow oxygen. More alert and awake. Following commands. Denies any pain. No Chest pain, sob, or abd pain, n/v/d. Objective - Vital Signs/Intake and Output Vital Signs (last 24 hours): Temp Pulse Resp BP Pulse Ox 97.6 F 92 H 20 135/73 98 01/24/17 07:46 01/24/17 07:46 01/24/17 08:13 01/24/17 07:46 01/24/17 07:46 Intake and Output: 01/24/17 01/24/17 06:59 18:59 Intake Total 120 Output Total 600 Balance -480 - Medications Medications: Current Medications Acetaminophen (Tylenol 650mg/20.3ml Solution Ud) 650 mg PO Q6H PRN PRN Reason: fever Last Admin: 01/20/17 12:00 Dose: 650 mg Amiodarone HCl (Cordarone) 200 mg PO DAILY [facility] Last Admin: 01/24/17 10:32 Dose: Not Given Aspirin (Aspirin Chewable) 81 mg PO DAILY [facility] Last Admin: 01/24/17 10:32 Dose: Not Given Diltiazem HCl (Cardizem) 60 mg PO QID [facility] Last Admin: 01/24/17 10:32 Dose: Not Given Docusate Sodium (Colace Liquid) 100 mg PO TID [facility] Last Admin: 01/24/17 10:32 Dose: Not Given Enoxaparin Sodium (Lovenox) 40 mg SC DAILY [facility] PRN Reason: Protocol Last Admin: 01/24/17 10:31 Dose: 40 mg Hydralazine HCl (Apresoline) 10 mg IVP Q6 PRN PRN Reason: for SBP>170 & or Diastolic>100 Hydrocortisone Sodium Succinate (Solu-Cortef) 50 mg IVP Q12H [facility] Last Admin: 01/24/17 10:30 Dose: 50 mg Dextrose (Dextrose 5% In Water 1000 Ml) 1,000 mls @ 60 mls/hr IV .[id number] [facility] Last Admin: 01/24/17 04:34 Dose: 60 mls/hr Doxycycline Hyclate 100 mg/ (Sodium Chloride) 100 mls @ 100 mls/hr IVPB Q12 YESSI PRN Reason: Protocol Last Admin: 01/24/17 10:33 Dose: 100 mls/hr Pantoprazole Sodium (Protonix 40mg Ivpb) 40 mg in 100 mls @ 200 mls/hr IVPB 0600 [facility] Last Admin: 01/24/17 05:10 Dose: 200 mls/hr Meropenem 1g/NS 100mL IVPB (Meropenem 1g/Ns 100ml Ivpb) 1 gm in 100 mls @ 100 mls/hr IVPB Q8 [facility] PRN Reason: Protocol Stop: 01/29/17 14:01 Last Admin: 01/24/17 05:10 Dose: 100 mls/hr Insulin Human Regular (Humulin R Low) 0 units SC Q6 YESSI PRN Reason: Protocol Last Admin: 01/24/17 05:23 Dose: 1 units Isosorbide Mononitrate (Imdur) 60 mg PO DAILY [facility] Last Admin: 01/24/17 10:32 Dose: Not Given Labetalol HCl (Trandate) 10 mg IV Q3H PRN PRN Reason: Systolic Blood Pressure Levalbuterol HCl (Xopenex) 0.63 mg IH [id number] [facility] Last Admin: 01/24/17 08:08 Dose: 0.63 mg Levalbuterol HCl (Xopenex) 0.63 mg IH Q2 PRN PRN Reason: Shortness of Breath Last Admin: 01/14/17 11:25 Dose: 0.63 mg Metoprolol Tartrate (Lopressor) 25 mg PO BID [facility] Last Admin: 01/24/17 10:32 Dose: Not Given Nystatin (Nystop Topical Powder) 0 gm TOP BID [facility] Last Admin: 01/24/17 10:32 Dose: 1 applic Sennosides (Senokot Tab) 8.6 mg PO DAILY [facility] Last Admin: 01/24/17 10:33 Dose: Not Given Tamsulosin HCl (Flomax) 0.4 mg PO DAILY [facility] Last Admin: 01/24/17 10:32 Dose: Not Given - Labs Labs: 01/24/17 07:30 01/24/17 07:30 PT 13.7 Seconds (9.9-11.8) H 01/12/17 04:00 INR 1.27 (0.93-1.08) H 01/12/17 04:00 APTT 32.7 Seconds (23.7-30.8) H 01/12/17 04:00 - Constitutional Appears: No Acute Distress - Head Exam Head Exam: ATRAUMATIC - Eye Exam Eye Exam: EOMI, PERRL - ENT Exam ENT Exam: Mucous Membranes Moist - Respiratory Exam Respiratory Exam: Clear to Ausculation Bilateral. absent: Rales, Rhonchi, Wheezes - Cardiovascular Exam Cardiovascular Exam: REGULAR RHYTHM, +S1, +S2 - GI/Abdominal Exam GI & Abdominal Exam: Soft. absent: Distended, Tenderness - Extremities Exam Extremities Exam: absent: Calf Tenderness, Pedal Edema - Neurological Exam Neurological Exam: Alert, Awake. absent: Oriented x3 - Psychiatric Exam Psychiatric exam: Normal Affect, Normal Mood - Skin Skin Exam: Dry, Intact, Normal Color Assessment and Plan - Assessment and Plan (Free Text) Assessment: 86 M with pmh of hemolytic anemia, CAD, COPD, CABG, hx of diverticulitis, gastritis, GERD, BPPH, Asbestosis, presents to the ED with cough and L sided back pain and found to have T12 compression fracture. Pt has Félix positive, hemolytic anemia on prednisone now with a leukocytosis leukomoid rxn vs sepsis vs infection. S/p cardiac arrest and intubated and sedation. He is currently requiring high flow oxygen. - Requiring high flow O2 - Surgery consulted- Trach not needed at this time - Speech and swallow - Puree diet but pt did not tolerate it yesterday - GI consult - will clinically reassess on Friday - cont Dubhoff nutritional support for now - Palliative consult appreciated - wbc inc 104 - likely leukomoid reaction - flow cytometry of the blood was negative - peripheral smear showed leukomoid reaction - F/u ID recs - cont Doxy and Cristin - Solucortef 50mg BID - MRI Brain - No acute intracranial finding, R mastoiditis - MRA- unremarkable - MRA neck - no stenosis - Cardio - Cont Amio, aspirin, plavix, metoprolol and cardizem - MRI of the thoracic spine - recent compression fracture of T12 with marrow edema anteriorly - CT abdomen showed new compression deformity of T12 and small epidural hemorrhage at this level. rec MRI - CXR- b/l calcified pleural plaques Case and plan was reviewed and discussed in detail with Dr Walton <Rowdy Walton P - Last Filed: 01/24/17 22:59> Objective - Vital Signs/Intake and Output Vital Signs (last 24 hours): Temp Pulse Resp BP Pulse Ox 97.6 F 115 H 20 135/73 98 01/24/17 07:46 01/24/17 10:00 01/24/17 08:13 01/24/17 07:46 01/24/17 07:46 - Labs Labs: 01/24/17 07:30 01/24/17 07:30 PT 13.7 Seconds (9.9-11.8) H 01/12/17 04:00 INR 1.27 (0.93-1.08) H 01/12/17 04:00 APTT 32.7 Seconds (23.7-30.8) H 01/12/17 04:00 Attending/Attestation - Attestation I have personally seen and examined this patient.: Yes I have fully participated in the care of the patient.: Yes I have reviewed all pertinent clinical information, including history, physical exam and plan: Yes
[2017-01-24 14:10] VITALS: PULSE 115
--- NOTE | 2017-01-24 14:47 | PN ---
DATE: SUBJECTIVE: The patient is seen in [facility] in [place], [place]. The patient is in room 362, bed 2. The patient was admitted with fever, leukocytosis, possible sepsis, pain in the lower back, fracture of T12 vertebrae. The patient had subsequent cardiac arrest and the patient was treated in the critical care unit. Now, the patient is out of the critical care unit. The patient is being medically managed on the third floor, medical floor. The patient awaiting to be transferred to long-term care by acute medical condition. PHYSICAL EXAMINATION: VITAL SIGNS: Pulse is 92, blood pressure 135/73, respirations 22, the patient's O2 sat 98% on 40% O2 by nasal cannula. LUNGS: Bilateral crepitations, rhonchi present. HEART: Normal sinus rhythm. Sinus tachycardia. ABDOMEN: Soft. Liver and spleen not palpable. CENTRAL NERVOUS SYSTEM: The patient is conscious, can recognize people. Unable to talk clearly and unable to eat. The patient has a Dobhoff tube to feed. Swallow evaluation was ordered and done. He passed the swallowing evaluation, but he finds it difficult to swallow his food. The patient is improved from his critical condition at this time. He is clinically improving. The patient needs further management, physical therapy, rehabilitation, nutritional support, and medication help. MEDICATIONS: The patient's list of medication consist of hydralazine, aspirin, Cardizem, Colace, amiodarone, doxycycline, Flomax, insulin coverage for hypoglycemia, isosorbide mononitrate for coronary artery disease and angina, metoprolol 25 mg b.i.d. the patient gets for coronary artery disease, angina, and hypertension. The patient is on Lovenox 40 mg SQ daily for prophylaxis of DVT. The patient is on meropenem 1 g q. 8 hours, nystatin oral suspension for fungal infection and pantoprazole 40 mg daily. PLAN: The patient's clinical condition is still unstable. He will continue current management. We will wait for him to be transferred to long-term care. The web content & social media manager is discussing with the family regarding [facility] acute care facilities to choose a place and make arrangements to transfer the patient. David Pavon MD MTDNubia
--- NOTE | 2017-01-24 16:16 | PN ---
LOCATION: The patient in room 362, bed 2. REASON FOR CONSULTATION: Followup status post CPR, status post cardiac arrest, possible anoxic encephalopathy. SUBJECTIVE: The patient is conscious and alert, no apparent respiratory distress, lying in bed. PHYSICAL EXAMINATION: VITAL SIGNS: Blood pressure 135/73, respirations 20, pulse 92, and temperature 97.6. HEENT: Head is normocephalic. Eyes: Pupils are normal. Conjunctiva slightly pale. NECK: JVP low. Carotids equal. Thorax AP diameter normal. LUNGS: Clear. CARDIOVASCULAR: S1 and S2. ABDOMEN: Soft, nontender. No organomegaly. Bowel sounds are normal. EXTREMITIES: No clubbing, no cyanosis. LABORATORY DATA: WBC 104.2, hemoglobin 9.4, hematocrit 28.0 and platelet 436. Sodium 139, potassium 3.6, BUN 30, creatinine 0.8 and random sugar 160. AST 90, ALT 67 and alkaline phosphatase 137. Total protein 5.3 and albumin 2.2. DIAGNOSES: Status post cardiorespiratory arrest, chronic obstructive pulmonary disease, coronary artery disease, status post bypass 23 years ago, status post multiple stents, history of hemolytic anemia and elevated white cell count, possible anoxic encephalopathy. Echo on 01/13/2017, showed ejection fraction 45% to 50%, mild mitral regurgitation, mild tricuspid regurgitation. Chest x-ray, bilateral basal infiltrates; hypoproteinemia; malnutrition. PLAN: Continue the patient through the feeding tube and continue present medication. We will continue to follow. Francisca Guan MD
--- NOTE | 2017-01-25 03:11 | PN ---
DATE: 01/24/2017 SUBJECTIVE: The patient in bed, in no acute distress, nontoxic, seen early this morning, room 262. PHYSICAL EXAMINATION VITAL SIGNS: Temperature is 98, blood pressure 130/70, respiratory rate of 16. HEENT: Examination of HEENT is unremarkable. NECK: Supple. LUNGS: With decreased breath sounds. HEART: Normal S1 and S2. ABDOMEN: Soft, nontender. LABORATORY DATA: Reveals the patient's white count of 104,000, hemoglobin of 9, chemistry reveals a BUN of 30, creatinine of 0.8, and urinalysis is noted. Vanco trough is noted from the 12th. ASSESSMENT AND PLAN: A 86-year-old male status post ventilatory dependent respiratory failure, status post with healthcare associated pneumonia, new onset of streptomonas and I had completed a daptomycin therapy and echo negative for vegetation, I had also completed meropenem therapy for mastoiditis day #12 and doxycycline day #5. Tino Burger MD
--- NOTE | 2017-02-06 05:32 | DS ---
BRIEF HISTORY: This is an 86-year-old male with history of chronic obstructive pulmonary disease, asbestosis, prostatic hyperplasia, peptic ulcer disease, gastritis, chronic constipation, altered mental state with mild dementia and hypertension who was brought into the emergency room by his family complaining of intractable pain in his left lower abdomen and groin area. The patient stated that he had this pain for 3 weeks. He was treated in the office prior to admission with Toradol as well as NSAID's. He had some localized tenderness in the sacroiliac joint area on the left side. Recently, he also had complaints of loss of appetite and difficulty sleeping because of the pain. As per the , the patient had not slept for 4 days due to pain. White blood cell count was 64,800 with 72% neutrophils. X-ray of the abdomen and pelvis showed evidence of fracture of T12. CAT scan of the spine also showed possible abscess or hematoma in the spine. HOSPITAL COURSE: The patient was admitted to the general medical floor. MRI of the back was done, which was negative for hematoma. It did show compression fracture of T12. Due to the patient's restlessness and erratic behavior, psychiatrist Dr. Juju Mcdermott, saw the patient. He was also seen by Dr. Almazan and Dr. Guan, cardiologists, Dr. Shah, who is his facilities specialist, Dr. Walton who is his vamp throater and Dr. Burger for infectious disease. The patient was receiving physical therapy in order to help him walk. He was also seen by Dr. Vo for compression fracture and back pain. The patient became very restless one night despite being given Ativan. He was then given Geodon as ordered by the psychiatrist. After being given Geodon, the patient went into cardiac arrest, was intubated, and transferred to the critical care unit. The patient was placed on intravenous antibiotics for possible sepsis. CXR showed possible pneumonia and sputum culture grew Stenotrophomonas maltophilia. Echocardiogram was done, which showed no vegetation.The patient remained on the ventilator for an extended period of time. As he was unable to be weaned off the ventilator, a Dobhoff tube was placed to start feeding the patient. The patient began to wake up. He was able to open his eyes and seemed to recognize faces. however, the patient became very restless and pulling at the IV sites. Due to this, he had to be sedated with Diprivan. The patient's family was advised regarding PEG tube and trach placement. At first, the family was not in agreement with this, but eventually the family agreed for tracheostomy. The patient was scheduled to have a trach placed when he was able to be successfully weaned off the ventilator. The patient remained on high-flow oxygen. He seemed to be saturating well with the high-flow oxygen. He was then transferred to the medical floor. On the medical floor, he continued the Dobhoff tube for feeding. As the patient remained on high flow oxygen, he required further treatment at the acute care level. This was discussed with the family, who agreed to transfer him to a long-term acute care facility in [place], [place]. DISCHARGE DIAGNOSES: Compression fracture of T12, status post cardiac arrest with ventilator dependent respiratory failure, asbestosis, chronic obstructive pulmonary disease, sepsis, pseudoleukemic reaction, hypertension, pneumonia, sputum with Stenotrophomonas maltophilia. DISCHARGE MEDICATIONS: Hydralazine 10 mg q. 6 hours p.r.n., aspirin 81 mg daily, Cardizem 60 mg 4 times a day, Colace 100 mg 3 times a day, amiodarone 200 mg daily, Flomax 24 mg daily, Imdur 60 mg daily, Lopressor 25 mg twice a day, Lovenox 40 mg subq daily, hydrocortisone 50 mg IV q. 12, Labetalol 10 mg IV q. 3 hours p.r.n., doxycycline 100 mg IV q. 12 hours, Xopenex q. 6 hours, Tylenol 650 mg q. 6 hours as needed for pain. Daniel Pavon MD J[facility]
== END 2017-01-24 14:15 | DRG 542 ==
LOC: ED 11:27 → ERH 14:04 → 3RNO 15:27 → CCU 01-12 03:49 → 3RNO 01-22 15:58
PROVIDERS: ADMIT Internal Medicine; ATTEND Internal Medicine
PROC: 5A1955Z Respiratory Ventilation, Greater than 96 Consecutive Hours (ICD-10-PCS; principal; 2017-01-12)
PROC: 5A12012 Performance of Cardiac Output, Single, Manual (ICD-10-PCS; 2017-01-12)
PROC: 0BH17EZ Insertion of Endotracheal Airway into Trachea, Via Natural or Artificial Opening (ICD-10-PCS; 2017-01-12)
DX: M48.54XA Collapsed vertebra, not elsewhere classified, thoracic region, initial encounter for fracture (principal); A41.9 Sepsis, unspecified organism; I21.4 Non-ST elevation (NSTEMI) myocardial infarction; J96.01 Acute respiratory failure with hypoxia; J16.8 Pneumonia due to other specified infectious organisms; G93.1 Anoxic brain damage, not elsewhere classified; N17.9 Acute kidney failure, unspecified; I13.0 Hypertensive heart and chronic kidney disease with heart failure and stage 1 through stage 4 chronic kidney disease, or unspecified chronic kidney disease; I49.01 Ventricular fibrillation; I46.9 Cardiac arrest, cause unspecified; Z99.11 Dependence on respirator [ventilator] status; E87.4 Mixed disorder of acid-base balance; E44.0 Moderate protein-calorie malnutrition; F03.91 Unspecified dementia, unspecified severity, with behavioral disturbance; D59.9 Acquired hemolytic anemia, unspecified; J44.0 Chronic obstructive pulmonary disease with (acute) lower respiratory infection; E87.0 Hyperosmolality and hypernatremia; R13.10 Dysphagia, unspecified; J61 Pneumoconiosis due to asbestos and other mineral fibers; I25.119 Atherosclerotic heart disease of native coronary artery with unspecified angina pectoris; K59.09 Other constipation; M47.816 Spondylosis without myelopathy or radiculopathy, lumbar region; K21.9 Gastro-esophageal reflux disease without esophagitis; K29.70 Gastritis, unspecified, without bleeding; N40.1 Benign prostatic hyperplasia with lower urinary tract symptoms; R35.0 Frequency of micturition; R33.8 Other retention of urine; F41.9 Anxiety disorder, unspecified; K27.9 Peptic ulcer, site unspecified, unspecified as acute or chronic, without hemorrhage or perforation; D72.823 Leukemoid reaction; H70.91 Unspecified mastoiditis, right ear; E87.6 Hypokalemia; E86.0 Dehydration; E83.51 Hypocalcemia; K44.9 Diaphragmatic hernia without obstruction or gangrene; I08.1 Rheumatic disorders of both mitral and tricuspid valves; Z79.82 Long term (current) use of aspirin; Z87.891 Personal history of nicotine dependence; Z95.1 Presence of aortocoronary bypass graft; Z95.5 Presence of coronary angioplasty implant and graft; Z79.52 Long term (current) use of systemic steroids; Z68.26 Body mass index [BMI] 26.0-26.9, adult